=== PATIENT | male | born 1970 | race Caucasian/White ===

== ENCOUNTER 2016-09-24 16:08 | Inpatient (IN) | payer BC ==
[~2016-09-24] VITALS: Ht 180.3 cm; Wt 108.2 kg
[~2016-09-24 16:08] MED LIST: ATEN100T PO; EXJA500T PO; LEVA750T PO; LISI10TA3 PO; METF850T PO; OXYC1CAP PO; SERT-132 PO; [UNRECOGNIZED DRUG - REMARK] PO
[2016-09-25 09:00] VITALS: BP 125/73; PULSE 82; RESP 16; TEMP 98.1; O2SAT 97
[2016-09-25 09:46] LABS: HEMATOCRIT 28.8 % (39.0-51.0); MEAN CELL VOLUME 94.7 FL (80.0-100.0); MEAN CORPUSCULAR HGB CONC 35.8 % (32.0-36.0); PLATELET COUNT 29 TH/MM3 (150-450); RED BLOOD COUNT 3.04 MIL/MM3 (4.50-5.90); RED CELL DISTRIBUTION WIDTH 15.1 % (11.6-17.2); WHITE BLOOD COUNT 51.6 TH/MM3 (4.0-11.0)
[2016-09-25 09:49] LABS: HEMO FLAGS AUTO DIFF
[2016-09-25 10:08] LABS: ANION GAP 6 MEQ/L (5-15); AST (GOT) 25 U/L (15-37); BICARBONATE 30.8 MEQ/L (21.0-32.0); BLOOD UREA NITROGEN 13 MG/DL (7-18); CHLORIDE 100 MEQ/L (98-107); GLOMERULAR FILTRATION RATE 105 ML/MIN (>89); POTASSIUM 3.8 MEQ/L (3.5-5.1); SODIUM (NA) 137 MEQ/L (136-145); URIC ACID 3.8 MG/DL (2.6-7.2)
[2016-09-25 10:11] LABS: ALKALINE PHOSPHATASE 99 U/L (45-117); ALT (GPT) 21 U/L (12-78); LDH SERUM 783 U/L (87-241); TOTAL BILIRUBIN ADULT 0.3 MG/DL (0.2-1.0)
[2016-09-25] MEDS ORDERED: TEMAZEPAM 15 MG CAP PO PRN (10:15)
[2016-09-25] MEDS ORDERED: MORPHINE SULFATE 8 MG/ML INJ IV PUSH PRN (10:15)
[2016-09-25] MEDS ORDERED: ALUMINUM/MAGNESIUM/SIMETH 30 ML CUP PO PRN (10:15)
[2016-09-25] MEDS ORDERED: PROMETHAZINE HCL 25 MG TAB PO PRN (10:15)
[2016-09-25] MEDS ORDERED: ALTEPLASE RECOMBINANT 2 MG VIAL IVF PRN (10:15)
[2016-09-25] MEDS ORDERED: LORazepam 0.5 MG TAB PO PRN (10:15)
[2016-09-25] MEDS ORDERED: MORPHINE SULFATE 4 MG/ML INJ IV PRN (10:15)
[2016-09-25] MEDS ORDERED: PROCHLORPERAZINE INJ 10 MG/2 ML VIAL IV PRN (10:15)
[2016-09-25] MEDS ORDERED: PROCHLORPERAZINE MALEATE 10 MG TAB PO PRN (10:15)
[2016-09-25] MEDS ORDERED: SODIUM CHLORIDE 10 ML FLUSH PRN IVF (10:15)
[2016-09-25] MEDS ORDERED: [UNRECOGNIZED DRUG - REMARK] XX PRN (10:15)
[2016-09-25] MEDS ORDERED: MAGNESIUM HYDROXIDE SUSP 30 ML CUP PO PRN (10:15)
[2016-09-25] MEDS ORDERED: LORazepam 2 MG/ML VIAL IV PRN (10:15)
[2016-09-25] MEDS ORDERED: LOPERAMIDE HCL 2 MG CAP PO PRN (10:15)
[2016-09-25 10:16] LABS: BANDS 1 % (0-6); BLASTS 75 % (0-0); EOSINOPHILS 1 % (0-4); MYELOCYTES 2 % (0-0); NEUTROPHIL # MANUAL DIFF 4.6 TH/MM3 (1.8-7.7); POLYS (SEG NEUTROPHILS) 6 % (16-70); WBC DIFF SAMPLE 100
[2016-09-25 10:17] LABS: SMUDGE CELLS PRESENT PRESENT
[2016-09-25 10:18] LABS: PLATELET ESTIMATE SMEAR LOW (NORMAL); PLATELET MORPHOLOGY NORMAL (NORMAL); SCAN/DIFF FINAL DIFF MANUAL
[2016-09-25] MEDS: ALLOPURINOL 300 MG TAB PO SCH (10:30)
[2016-09-25] MEDS ORDERED: FILGRASTIM IV ONE ×2 (11:00)
[2016-09-25] MEDS ORDERED: WATER IV ONE ×2 (11:00)
[2016-09-25] MEDS ORDERED: DEXTROSE 5% IV ONE ×2 (11:00)
[2016-09-25 11:50] VITALS: BP 117/71; PULSE 86; RESP 20; TEMP 97.2; O2SAT 95
[2016-09-25] MEDS: SODIUM CHLOR 0.9% 1000 ML INJ 1,000 ML IV SCH ×2 (11:50→21:08)
--- NOTE | 2016-09-25 12:32 | EC ---
Study Study Date:09/25/2016 STUDY CONCLUSIONS SUMMARY - Procedure narrative: Transthoracic echocardiography. Image quality was fair. The study was technically limited due to poor acoustic window availability. - Left ventricle: The cavity size was normal. Wall thickness was normal. Systolic function was mildly reduced. The estimated ejection fraction was in the range of 45% to 50%. Diffuse hypokinesis. The study is not technically sufficient to allow evaluation of LV diastolic function. If LV function is below 40, please consider prescribing an ACEI or ARB or document rationale for non-use. PROCEDURE DATA STUDY STATUS: Elective. Procedure: Transthoracic echocardiography. Image quality was fair. The study was technically limited due to poor acoustic window availability. Scanning was performed from the parasternal, apical, and subcostal acoustic windows. Study completion: The patient tolerated the procedure well. Transthoracic echocardiography. M-mode, complete 2D, complete spectral Doppler, and color Doppler. Height: Height: 71in. Weight: Weight: 271.4lb. Body mass index: BMI: 37.9kg/m^2. Body surface area: BSA: 2.4m^2. Patient status: Inpatient. CARDIAC ANATOMY LEFT VENTRICLE: The cavity size was normal. Wall thickness was normal. Systolic function was mildly reduced. The estimated ejection fraction was in the range of 45% to 50%. Diffuse hypokinesis. The study is not technically sufficient to allow evaluation of LV diastolic function. Artifact noted in the apex in 4 chamber view, does not move with the ventricle and overall apex appears to move. AORTIC VALVE: The valve appears to be grossly normal. Doppler: There was no stenosis. No significant regurgitation. Valve area: 2.66cm^2 (Vmax). Indexed valve area: 1.11cm^2/m^2 (Vmax). MITRAL VALVE: The valve appears to be grossly normal. Doppler: There was no evidence for stenosis. Trace regurgitation. Peak gradient: 5mm Hg (D). LEFT ATRIUM: The atrium was normal in size. RIGHT VENTRICLE: The cavity size was normal. PULMONIC VALVE: Not well visualized. Doppler: There was no evidence for stenosis. No significant regurgitation. TRICUSPID VALVE: The valve appears to be grossly normal. Doppler: There was no evidence for stenosis. Trace regurgitation. PERICARDIUM: There was no pericardial effusion. Patient weight: 271.4lb _Ejection fraction:_ 65-75% _Fractional shortening:_ 32% up to 5Kg 5-11.5Kg 11.6-22.9Kg 23-45Kg 45-57Kg Aortic Root 7-13 <17 13-22 17-27 17-27 LA diam 6-13 <23 24-38 33-47 37-40 RVID 10-17 7-15 7-15 7-18 8-17 LVIDd 12-22 <32 24-38 33-47 37-40 LVPW 2-4 3-6 5-7 6-8 7-8 IVS 2-4 3-6 5-7 6-8 7-8 BASIC MEASUREMENTS ADULT NORMAL Left ventricle LV internal dimension, ED, chordal *41.6 mm 43-52 level, PLAX LV internal dimension, ES, chordal 34.7 mm 23-38 level, PLAX Fractional shortening, chordal level, *17 % >29 PLAX LV posterior wall thickness, ED 9.04 mm IVS/LVPW ratio, ED 1.04 <1.3 Ventricular septum Septal thickness, ED 9.38 mm Aortic valve Leaflet separation 15 mm 15-26 Right ventricle RV internal dimension, ED, PLAX 29.6 mm 19-38 BASIC MEASUREMENTS ADULT NORMAL Aortic valve Leaflet separation 15 mm 15-26 Aorta Root diameter, ED 27 mm 20-37 Left atrium Anterior-posterior dimension, ES 34 mm 19-40 Anterior-posterior dimension index, ES 1.42 cm/m^2 <2.2 LA/aortic root ratio 1.26 DOPPLER MEASUREMENTS ADULT NORMAL Aortic valve Peak velocity, S 137 cm/s Valve area, Vmax 2.66 cm^2 Valve area index, Vmax 1.11 cm^2/m^2 Mitral valve Peak E-wave velocity 117 cm/s Peak A-wave velocity 81.4 cm/s Deceleration time *141 ms 150-230 Peak gradient, D 5 mm Hg Peak E/A ratio 1.4 Maximal regurgitant velocity 316 cm/s Pulmonic valve Peak velocity, S 141 cm/s LEGEND: Mean values are shown as u=mean value. Asterisk (*) frank values outside specified normal range. Prepared and signed by Saurabh Malin [id number]
[2016-09-25] MEDS ORDERED: AMLO10TA2 PO (14:52)
[2016-09-25] MEDS ORDERED: OXYC1TAB63 PO (14:52)
[2016-09-25] MEDS ORDERED: OXYC1CAP PO (14:52)
[2016-09-25] MEDS ORDERED: DIAZ10TA PO (14:52)
[2016-09-25] MEDS ORDERED: multvitamin PO (14:52)
[2016-09-25 15:15] LABS: HEMATOCRIT 28.4 % (39.0-51.0); MEAN CELL VOLUME 94.7 FL (80.0-100.0); MEAN CORPUSCULAR HEMOGLOBIN 33.6 PG (27.0-34.0); MEAN CORPUSCULAR HGB CONC 35.5 % (32.0-36.0); PLATELET COUNT 27 TH/MM3 (150-450); RED CELL DISTRIBUTION WIDTH 14.8 % (11.6-17.2); WHITE BLOOD COUNT 41.7 TH/MM3 (4.0-11.0)
[2016-09-25 15:18] LABS: HEMO FLAGS AUTO DIFF
[2016-09-25 15:31] LABS: PROTHROMBIN TIME - PATIENT 11.1 SEC (9.8-11.6)
[2016-09-25 15:34] LABS: APTT (PATIENT) 25.4 SEC (24.3-30.1)
[2016-09-25 15:50] VITALS: BP 135/79; PULSE 105; RESP 20; TEMP 98.7; O2SAT 95
[2016-09-25 16:56] LABS: BLASTS 81 % (0-0); EOSINOPHILS 4 % (0-4); MYELOCYTES 1 % (0-0); NEUTROPHIL # MANUAL DIFF 2.9 TH/MM3 (1.8-7.7); POLYS (SEG NEUTROPHILS) 6 % (16-70); WBC DIFF SAMPLE 100
[2016-09-25 16:57] LABS: PLATELET ESTIMATE SMEAR LOW (NORMAL); PLATELET MORPHOLOGY NORMAL (NORMAL); SCAN/DIFF FINAL DIFF MANUAL
[2016-09-25 17:02] LABS: SMUDGE CELLS PRESENT PRESENT
[2016-09-25] MEDS: DOCUSATE SODIUM 100 MG CAP PO SCH (17:18)
[2016-09-25 20:00] VITALS: BP 124/77; PULSE 104; RESP 20; TEMP 99; O2SAT 93
[2016-09-25] MEDS: SODIUM CHLORIDE 10 ML FLUSH BID IVF SCH (21:00)
[2016-09-25] MEDS: DIAZEPAM 10 MG TAB PO SCH (21:05)
[2016-09-25] MEDS: ATENOLOL 100 MG TAB PO SCH (21:06)
[2016-09-26] VITALS (8 sets, daily range): BP systolic 94–137; BP diastolic 51–79; PULSE 62–115; RESP 12–20; TEMP 96.4–101.3; O2SAT 93–99
[2016-09-26] MEDS: SODIUM CHLOR 0.9% 1000 ML INJ 1,000 ML IV SCH (04:16)
--- NOTE | 2016-09-26 05:32 | MH ---
cc: JOSEF SANCHEZ M.D. DATE OF ADMISSION: 09/25/2016 REASON FOR ADMISSION Relapse acute myeloid leukemia, admitted for salvage chemotherapy. HISTORY OF PRESENT ILLNESS Edgar is a pleasant 46-year-old male. 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 The NPM1 was positive. On November 05, 2015, he underwent induction chemotherapy with idarubicin and Ana Paula-C 7+3. Day 21 bone marrow showed residual leukemia with 7-8% blasts and the NPM1 was still positive. On December 06 he underwent reinduction chemotherapy with FLANG. Day 21 bone marrow showed that he went into remission; there was no residual leukemia noted. The NPM1 became negative. Subsequently the patient had four cycles of high-dose Ana Paula-C consolidation chemotherapy which he completed in May 2016. The patient was closely followed up as an outpatient. The patient recently was noted to have a mild thrombocytopenia and mild neutropenia. 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 The patient was getting CBC every 2 weeks and I was seeing him in the office once a month. Last week the patient had a CBC which showed the white count had gone up to 11,000 and the platelet count had dropped to less than 100,000 and there were 36% blasts. I saw the patient in the office yesterday did a bone marrow biopsy. I repeated the CBC yesterday before the bone marrow biopsy which showed a white count of 63.7, hemoglobin 12.2, hematocrit 34.3, platelet count was 33. The differential count showed 73% blasts. I have recommended salvage chemotherapy. The patient is now admitted today for that. The patient denies any new complaint since yesterday. He denies any bleeding episodes. The patient has anxiety which is to be expected. The rest of the review of systems is negative. PAST MEDICAL HISTORY 1. ADHD. 2. Hemochromatosis. 3. Hypercholesterolemia. 4. Acute myeloid leukemia diagnosed in October last year. 5. Anxiety disorder. PAST SURGICAL HISTORY 1. Wtutaz-C-Pavd placement. 2. Tonsillectomy. 3. Undescended testis. 4. Colonoscopy. 5. Cardiac catheterization. 6. Anal sphincterotomy. ALLERGIES None. MEDICATIONS 1. Adderall. 2. Amlodipine. 3. Atenolol. 4. Diazepam. 5. Lisinopril. 6. Metformin. 7. Oxycodone. FAMILY HISTORY Mother from metastatic lung cancer. Father from [place]. He had one brother who and another brother who is alive and well. The patient has six sisters. Five , none from cancer. The patient has two daughters, both alive and well. SOCIAL HISTORY The patient is , lives with . He does not smoke cigarettes and he does not drink alcohol. PHYSICAL EXAMINATION GENERAL: He is a well-developed, well-nourished white male in no apparent distress. VITAL SIGNS: Temperature 97.2, heart rate is 86, blood pressure 117/71, O2 saturation 95%. HEENT: PERRLA, EOMI. Anicteric. No oral lesions noted. NECK: Supple. LYMPHATICS: There is no cervical, supraclavicular or axillary lymphadenopathy noted. LUNGS: Clear. No wheezing, rhonchi or rales. HEART: Regular rate and rhythm. ABDOMEN: Soft, nontender. No hepatosplenomegaly. EXTREMITIES: No pedal edema. NEUROLOGY: Awake, alert, oriented x 3. SKIN: No significant lesions noted. ASSESSMENT Relapse acute myeloid leukemia, last reinduction chemo in 12/2015 PLAN I have discussed with the patient and his yesterday in our clinic regarding the relapsed leukemia. The patient was treated with idarubicin and Ana Paula-C induction chemotherapy last year and he did not achieve complete remission. Subsequently he had he was reinduced with FLANG chemotherapy and he went into remission. The patient was referred to [facility] for allogeneic bone marrow transplant. The patient was evaluated and was found have a suitable donor. However, the patient elected to defer the transplant. He wanted did not want to do the transplant in first remission. The patient unfortunately now has relapse. The patient had relapsed within a year of his reinduction chemotherapy. His last reduction was in December of 2015 so it has been nine months that he has relapsed. I will use the salvage chemotherapy with CLAG-M which stands for Cladribine, Ana Paula-C, G-CSF and mitoxantrone. The risks, benefits and alternatives of the chemotherapy were explained to the patient. The patient has agreed and wants to proceed with that. I will give him G-CSF today and start chemotherapy tomorrow. He will get cladribine IV for 2 hours followed by Ana Paula-C over 4 hours which will be followed by mitoxantrone for three days. The cladribine and Ana Paula-C will be given for five days. Prior to the chemotherapy, the patient will also receive Neupogen. We will start the Neupogen 24 hours prior to the first chemotherapy today. The patient was started on allopurinol yesterday in preparation for possible tumor lysis syndrome. We will continue his medications. I have discussed with the patient regarding the risks, benefits and alternatives of the chemotherapy. We discussed the side effects of the chemotherapy. We discussed that with the salvage chemotherapy has increased morbidity and mortality. He understands and he wants to proceed with that. I have also discussed the case with his transplant physician, Dr. Sepulveda at [facility] in [place]. Once the patient achieves remission, then he will be referred to [facility] for allogeneic bone marrow transplant. This time the patient has agreed to undergo transplant, which is very appropriate. Further recommendations based on his hospital stay. MD ALEX Hastings/YOVANNY /11:34 PM /5:06 AM ELZBIETA
[2016-09-26 05:46] LABS: HEMATOCRIT 27.6 % (39.0-51.0); MEAN CELL VOLUME 96.2 FL (80.0-100.0); MEAN CORPUSCULAR HEMOGLOBIN 32.2 PG (27.0-34.0); MEAN CORPUSCULAR HGB CONC 33.4 % (32.0-36.0); PLATELET COUNT 22 TH/MM3 (150-450); RED BLOOD COUNT 2.87 MIL/MM3 (4.50-5.90); RED CELL DISTRIBUTION WIDTH 15.1 % (11.6-17.2); WHITE BLOOD COUNT 60.7 TH/MM3 (4.0-11.0)
[2016-09-26 05:57] LABS: APTT (PATIENT) 25.8 SEC (24.3-30.1); PROTHROMBIN TIME - PATIENT 11.4 SEC (9.8-11.6)
[2016-09-26 05:58] LABS: HEMO FLAGS AUTO DIFF
[2016-09-26 06:08] LABS: ALT (GPT) 19 U/L (12-78); ANION GAP 6 MEQ/L (5-15); AST (GOT) 22 U/L (15-37); BICARBONATE 28.7 MEQ/L (21.0-32.0); BLOOD UREA NITROGEN 9 MG/DL (7-18); CHLORIDE 102 MEQ/L (98-107); GLOMERULAR FILTRATION RATE 120 ML/MIN (>89); MAGNESIUM 1.8 MG/DL (1.5-2.5); POTASSIUM 3.4 MEQ/L (3.5-5.1); SODIUM (NA) 137 MEQ/L (136-145); URIC ACID 3.6 MG/DL (2.6-7.2)
[2016-09-26 06:10] LABS: ALKALINE PHOSPHATASE 76 U/L (45-117); LDH SERUM 827 U/L (87-241); TOTAL BILIRUBIN ADULT 0.3 MG/DL (0.2-1.0)
[2016-09-26 08:03] LABS: BLASTS 87 % (0-0); NEUTROPHIL # MANUAL DIFF 2.4 TH/MM3 (1.8-7.7); POLYS (SEG NEUTROPHILS) 4 % (16-70); WBC DIFF SAMPLE 100
[2016-09-26 08:05] LABS: PLATELET ESTIMATE SMEAR LOW (NORMAL); PLATELET MORPHOLOGY NORMAL (NORMAL); SCAN/DIFF FINAL DIFF MANUAL
[2016-09-26] MEDS ORDERED: LISINOPRIL 20 MG TAB PO SCH (09:00)
[2016-09-26] MEDS ORDERED: DEXTROAMPHETAMINE/AMPHETAMINE XR 10 MG CAP PO SCH (09:00)
[2016-09-26] MEDS ORDERED: SODIUM CHLOR 0.9% 250 ML INJ 250 ML IV SCH ×2 (09:00→12:00)
[2016-09-26] MEDS ORDERED: SODIUM CHLORIDE 0.9% IV SCH ×2 (09:00→18:00)
[2016-09-26] MEDS ORDERED: DEXTROAMPHETAMINE/AMPHETAMINE XR 15 MG CAP PO SCH (09:00)
[2016-09-26] MEDS: SODIUM CHLORIDE 10 ML FLUSH BID IVF SCH ×2 (09:00→21:00)
[2016-09-26] MEDS ORDERED: FILGRASTIM IV SCH (09:00)
[2016-09-26] MEDS ORDERED: ATENOLOL 100 MG TAB PO SCH (09:00)
[2016-09-26] MEDS: DOCUSATE SODIUM 100 MG CAP PO SCH ×3 (09:49→20:08)
[2016-09-26] MEDS: SERTRALINE HCL 50 MG TAB PO SCH (09:49)
[2016-09-26] MEDS: ALLOPURINOL 300 MG TAB PO SCH (09:50)
[2016-09-26] MEDS: metFORMIN HCL 850 MG TAB PO SCH (09:50)
[2016-09-26] MEDS ORDERED: GRANISETRON INJ 1 MG, DEXAMETHASONE INJ 20 MG in SODIUM CHLORIDE 0.9% INJ 50 ML IV SCH (10:00)
[2016-09-26] MEDS: GRANISETRON INJ 1 MG, DEXAMETHASONE INJ 20 MG in SODIUM CHLORIDE 0.9% INJ 50 ML IV SCH (13:04)
[2016-09-26] MEDS: SODIUM CHLOR 0.9% 250 ML INJ 250 ML IV SCH ×2 (13:11→20:09)
[2016-09-26] MEDS: FILGRASTIM IV SCH (13:37)
[2016-09-26] MEDS: SODIUM CHLORIDE 0.9% IV SCH (13:37)
[2016-09-26] MEDS ORDERED: WATE IV SCH ×2 (14:00)
[2016-09-26] MEDS ORDERED: DEXTROSE 5% IV SCH ×2 (14:00)
[2016-09-26] MEDS ORDERED: CYTARABINE IV SCH ×2 (14:00)
[2016-09-26] MEDS: CLADRIBINE IV SCH (14:03)
[2016-09-26] MEDS: SODIUM CHLORID 0.9% IV SCH (14:03)
[2016-09-26] MEDS: CEFEPIME INJ 2,000 MG in SODIUM CHLORIDE 0.9% INJ 100 ML IV SCH ×2 (14:10→22:06)
--- NOTE | 2016-09-26 14:33 | RADRPT ---
EXAM DATE/TIME: 09/26/2016 13:59 [facility] COMPARISON: CHEST PA & LAT, May 14, 2016, 14:25. INDICATIONS : Patient has been short of breath and had a productive cough. MEDICAL HISTORY : Hypertension. Diabetes mellitus type II. Leukemia. SURGICAL HISTORY : None. ENCOUNTER: Initial ACUITY: 2 days PAIN SCORE: 0/10 LOCATION: Bilateral chest FINDINGS: A single view of the chest demonstrates the lungs to be symmetrically aerated without evidence of mas s, infiltrate or effusion. The cardiomediastinal contours are unremarkable. A right chest port is s table in good position Osseous structures are intact. CONCLUSION: No acute disease. Eric Santiago MD on September 26, 2016 at 14:31 Board Certified Radiologist. This report was verified electronically.
[2016-09-26] MEDS ORDERED: BISACODYL EC 5 MG TABEC PO PRN (14:45)
--- NOTE | 2016-09-26 15:45 | PD.ONC.PN ---
Subjective Subjective Remarks Afebrile overnight, however he spiked a temp this afternoon of 101.3. Pt asymptomatic with no complaints. He states he feels fine. He has some generalized fatigue that is unchanged over the past few months. Objective Data Date Time Temp Pulse Resp B/P Pulse Ox O2 Delivery O2 Flow Rate FiO2 09/26/16 14:03 18 09/26/16 13:16 101.3 115 18 137/74 09/26/16 08:00 97.4 62 12 94/51 97 09/26/16 04:39 99.8 98 19 96/54 93 09/26/16 04:00 99.5 98 18 96/54 93 09/26/16 00:00 98.7 84 20 113/65 97 09/25/16 20:00 99.0 104 20 124/77 93 09/25/16 15:50 98.7 105 20 135/79 95 Result Diagram: 09/26/16 0400 09/26/16 0400 Laboratory Results Laboratory Tests Test 09/26/16 04:00 White Blood Count 60.7 TH/MM3 Red Blood Count 2.87 MIL/MM3 Hemoglobin 9.2 GM/DL Hematocrit 27.6 % Mean Corpuscular Volume 96.2 FL Mean Corpuscular Hemoglobin 32.2 PG Mean Corpuscular Hemoglobin 33.4 % Concent Red Cell Distribution Width 15.1 % Platelet Count 22 TH/MM3 Mean Platelet Volume 8.3 FL Neutrophils (%) (Auto) % Lymphocytes (%) (Auto) % Monocytes (%) (Auto) % Eosinophils (%) (Auto) % Basophils (%) (Auto) % Neutrophils # (Auto) TH/MM3 Lymphocytes # (Auto) TH/MM3 Monocytes # (Auto) TH/MM3 Eosinophils # (Auto) TH/MM3 Basophils # (Auto) TH/MM3 CBC Comment AUTO DIFF Differential Total Cells 100 Counted Neutrophils % (Manual) 4 % Lymphocytes % 6 % Monocytes % 3 % Neutrophils # (Manual) 2.4 TH/MM3 Differential Comment FINAL DIFF MANUAL Blastocytes 87 % Platelet Estimate LOW Platelet Morphology Comment NORMAL Prothrombin Time 11.4 SEC Prothromb Time International 1.0 RATIO Ratio Activated Partial 25.8 SEC Thromboplast Time Fibrinogen 249 mg/dL Sodium Level 137 MEQ/L Potassium Level 3.4 MEQ/L Chloride Level 102 MEQ/L Carbon Dioxide Level 28.7 MEQ/L Anion Gap 6 MEQ/L Blood Urea Nitrogen 9 MG/DL Creatinine 0.70 MG/DL Estimat Glomerular Filtration 120 ML/MIN Rate Random Glucose 143 MG/DL Uric Acid 3.6 MG/DL Calcium Level 8.2 MG/DL Phosphorus Level 3.4 MG/DL Magnesium Level 1.8 MG/DL Total Bilirubin 0.3 MG/DL Aspartate Amino Transf 22 U/L (AST/SGOT) Alanine Aminotransferase 19 U/L (ALT/SGPT) Alkaline Phosphatase 76 U/L Lactate Dehydrogenase 827 U/L Total Protein 5.6 GM/DL Albumin 3.2 GM/DL Culture Results Microbiology Date/Time Procedure Status Source Growth 09/26/16 13:57 Aerobic Blood Culture Received Blood Line Pending 09/26/16 13:57 Anaerobic Blood Culture Received Blood Line Pending 09/26/16 14:02 Aerobic Blood Culture Received Blood Peripheral Pending 09/26/16 14:02 Anaerobic Blood Culture Received Blood Peripheral Pending Imaging Studies Last 24 hours Impressions Chest X-Ray 09/26/16 0000 Signed Impressions: Service Date/Time: Monday, September 26, 2016 13:59 - CONCLUSION: No acute disease . Eric Santiago MD Administered Medications Medications (Trade) Dose Ordered Sig/Génesis Route PRN Reason Start Time Stop Time Status Last Admin Dose Admin Oxycodone HCl 10 mg 10 mg Q3H PRN PO PAIN SCALE 8 TO 10 09/25/16 08:45 09/26/16 13:03 Sodium Chloride (NS 1000 ml Inj) 1,000 ml @ 100 mls/hr Q10H IV 09/25/16 10:15 09/26/16 04:16 Allopurinol (Zyloprim) 300 mg DAILY PO 09/25/16 10:30 09/26/16 09:50 Amlodipine Besylate (Norvasc) 10 mg DAILY PO 09/26/16 09:00 09/26/16 09:49 Diazepam (Valium) 10 mg HS PO 09/25/16 21:00 09/25/16 21:05 Metformin HCl (Glucophage) 850 mg DAILY PO 09/26/16 09:00 09/26/16 09:50 Sertraline HCl (Zoloft) 50 mg DAILY PO 09/26/16 09:00 09/26/16 09:49 Oxycodone HCl (Roxicodone) 5 mg QID PO 09/25/16 13:00 09/25/16 17:18 Lisinopril (Prinivil) 20 mg DAILY PO 09/26/16 09:00 09/26/16 09:49 Atenolol (Tenormin) 100 mg DAILY@2100 PO 09/25/16 21:00 09/25/16 21:06 Docusate Sodium 100 mg 100 mg TID PO 09/25/16 18:00 09/26/16 13:10 Granisetron HCl 1 mg/Dexamethasone Sodium Phosphate 20 mg/Sodium Chloride 56 ml @ 112 mls/hr Q24H IV 09/26/16 12:00 09/30/16 12:29 09/26/16 13:04 Sodium Chloride 250 ml @ 100 mls/hr Q24H IV 09/26/16 13:00 09/26/16 13:11 Cladribine 12 mg/ Sodium Chloride 512 ml @ 256 mls/hr Q24H IV 09/26/16 13:00 09/30/16 14:59 09/26/16 14:03 Filgrastim 480 mcg/Sodium Chloride 51.6 ml @ 206.4 mls/ hr Q24H IV 09/26/16 12:30 09/30/16 12:44 09/26/16 13:37 Cefepime HCl/ Sodium Chloride (Maxipime Inj/NS Inj) 100 ml @ 200 mls/hr Q8H IV 09/26/16 14:00 09/26/16 14:10 Objective Remarks GENERAL: Overweight male, sitting up on side of bed in no distress. SKIN: Warm and dry. Port to R chest. Asymptomatic. HEAD: Normocephalic. EYES: No scleral icterus. No injection or drainage. NECK: Supple, trachea midline. No JVD or lymphadenopathy. CARDIOVASCULAR: +S1/S2. No murmur. RESPIRATORY: Lungs clear throughout. GASTROINTESTINAL: Abdomen soft, non-tender, nondistended. EXTREMITIES: No edema. NEUROLOGICAL: No obvious focal deficit. Awake, alert, and oriented x3. Assessment/Plan Problem List: (1) AML (acute myeloid leukemia) Status: Acute Plan: 09/26: Start on CLAG-M chemotherapy for relapsed AML. Received Neupogen yesterday. He spiked a fever this afternoon of 101.3. BC, UA, and CXR ordered. Will start pt on Cefepime. Await BC results. -- He has been getting CBC q2 weeks. On 09/18 it was noted that he had a white count at 11k and a platelet count of 76k. Blasts were at 38%. He was brought in to the clinic on 09/24 for a bone marrow biopsy. A CBC was done and showed a white count of 63.7, Hgb 12.2, and platelet count was 33K. The blasts were at 73 %. Decision was made at that time to admit for salvage chemo. History: 11/04/16: AML Diagnosis made. 46XY, +NPM1 mutation detected, FLT3 negative-- indicates favorable prognosis. 11/05-11/28: Initial induction with MELL-C and idarubicin (7+3). STAT Leukapheresis due to leukostasis. On D25, repeat bone marrow showed residual leukemia. 12/06-12/27: Re-induction with FLANG chemotherapy. Repeat bone marrow biopsy negative for residual AML. Patient in Complete Remission 01/06-01/10: C1 consolidation chemotherapy with Mell-C. 02/17-02/21: C2 consolidation chemotherapy with MELL-C. 03/25-03/30: C3 consolidation chemotherapy with MELL-C 04/28-05/02: C4 consolidation chemo with MELL-C (2) DVT prophylaxis Status: Acute Plan: -- Thrombocytopenia; will hold off on chemical prophylaxis at this time. (3) Hypertension Status: Acute Plan: -- Continue amlodipine, lisinopril -- BP controlled (4) Diabetes Status: Acute Plan: -- On Glucophage 850mg po daily (5) Fever Status: Acute Plan: -- BC pending -- Started on IV Cefepime -- CXR negative Assessment 46 y/o male admitted for salvage chemotherapy for relapsed AML. Attending Statement c/o pain and weakness. low grade fever last night. D/W pt regarding salvage chemo CLAG-M. He agrees. start today. R/B/A of chemo explained. He understand increase M/M with salvage chemo. d/w pharmacy, RN and staff regarding delay of chemo. The exam, history, and the medical decision-making described in the above note were completed with the assistance of the mid-level provider. I reviewed and agree with the findings presented. I attest that I had a [id number] encounter with the patient on the same day, and personally performed and documented my assessment and findings in the medical record. Valarie Lopez Sep 26, 2016 15:45 Alexandra Olea MD Sep 26, 2016 15:54
[2016-09-26] MEDS ORDERED: [UNRECOGNIZED DRUG - OTHER] IV SCH (18:00)
[2016-09-26] MEDS: ATENOLOL 100 MG TAB PO SCH (22:05)
[2016-09-26] MEDS: DIAZEPAM 10 MG TAB PO SCH (22:15)
[2016-09-26] MEDS ORDERED: MULT-135 PO (22:42)
[2016-09-27] VITALS (9 sets, daily range): BP systolic 80–158; BP diastolic 52–95; PULSE 88–115; RESP 16–19; TEMP 96.1–101; O2SAT 93–99
[2016-09-27 00:34] LABS: BLOOD, URINE NEG (NEG); GLUCOSE,URINE 1000 mg/dL (NEG); KETONE, URINE NEG (NEG); NITRITE,URINE NEG (NEG); URINE COLOR LIGHT-YELLOW (YELLW/STRAW)
[2016-09-27 00:42] LABS: COMMENT (UR) CULT NOT INDICATED; CULTURE IF INDICATED CULT NOT INDICATED
[2016-09-27] MEDS: SODIUM CHLORIDE 0.9% IV SCH ×2 (01:16→14:08)
[2016-09-27] MEDS: [UNRECOGNIZED DRUG - OTHER] IV SCH (01:16)
[2016-09-27] MEDS: SODIUM CHLOR 0.9% 1000 ML INJ 1,000 ML IV SCH ×2 (01:26→12:15)
[2016-09-27] MEDS: ACETAMINOPHEN 325 MG TAB PO PRN ×2 (01:49→05:56)
[2016-09-27] MEDS: DIAZEPAM 10 MG TAB PO SCH (02:10)
[2016-09-27] MEDS: ONDANSETRON INJ 8 MG in DEXTROSE 5% IN WATER INJ 50 ML IV PUSH PRN ×2 (02:13)
[2016-09-27] MEDS: SODIUM CHLOR 0.9% 250 ML INJ 250 ML IV SCH ×2 (02:50→20:52)
[2016-09-27] MEDS: CEFEPIME INJ 2,000 MG in SODIUM CHLORIDE 0.9% INJ 100 ML IV SCH ×2 (05:54→13:30)
[2016-09-27 07:25] LABS: HEMATOCRIT 28.3 % (39.0-51.0); MEAN CELL VOLUME 95.7 FL (80.0-100.0); MEAN CORPUSCULAR HEMOGLOBIN 32.6 PG (27.0-34.0); MEAN CORPUSCULAR HGB CONC 34.1 % (32.0-36.0); PLATELET COUNT 23 TH/MM3 (150-450); RED BLOOD COUNT 2.95 MIL/MM3 (4.50-5.90); RED CELL DISTRIBUTION WIDTH 15.2 % (11.6-17.2); WHITE BLOOD COUNT 82.9 TH/MM3 (4.0-11.0)
[2016-09-27 07:36] LABS: ALT (GPT) 20 U/L (12-78); ANION GAP 9 MEQ/L (5-15); AST (GOT) 32 U/L (15-37); BICARBONATE 25.3 MEQ/L (21.0-32.0); BLOOD UREA NITROGEN 19 MG/DL (7-18); CHLORIDE 102 MEQ/L (98-107); GLOMERULAR FILTRATION RATE 103 ML/MIN (>89); MAGNESIUM 1.9 MG/DL (1.5-2.5); POTASSIUM 3.9 MEQ/L (3.5-5.1); SODIUM (NA) 136 MEQ/L (136-145)
[2016-09-27 07:45] LABS: ALKALINE PHOSPHATASE 73 U/L (45-117); LDH SERUM 1180 U/L (87-241); TOTAL BILIRUBIN ADULT 0.3 MG/DL (0.2-1.0)
[2016-09-27 08:04] LABS: HEMO FLAGS AUTO DIFF
[2016-09-27 08:33] LABS: BANDS 4 % (0-6); BLASTS 87 % (0-0); EOSINOPHILS 1 % (0-4); NEUTROPHIL # MANUAL DIFF 9.9 TH/MM3 (1.8-7.7); POLYS (SEG NEUTROPHILS) 8 % (16-70); WBC DIFF SAMPLE 100
[2016-09-27 08:34] LABS: DOHLE BODIES PRESENT (NONE SEEN); PLATELET ESTIMATE SMEAR LOW (NORMAL); PLATELET MORPHOLOGY NORMAL (NORMAL); SCAN/DIFF FINAL DIFF MANUAL
[2016-09-27] MEDS: SODIUM CHLORIDE 10 ML FLUSH BID IVF SCH ×2 (09:00→20:47)
[2016-09-27] MEDS: DOCUSATE SODIUM 100 MG CAP PO SCH ×3 (10:42→17:55)
[2016-09-27] MEDS: metFORMIN HCL 850 MG TAB PO SCH (10:42)
[2016-09-27] MEDS: ALLOPURINOL 300 MG TAB PO SCH (10:42)
[2016-09-27] MEDS: SERTRALINE HCL 50 MG TAB PO SCH (10:43)
[2016-09-27] MEDS: DEXTROAMPHETAMINE/AMPHETAMINE XR 15 MG CAP PO SCH (12:08)
--- NOTE | 2016-09-27 12:59 | PD.ONC.PN ---
Subjective Subjective Remarks Tmax 101.0 overnight. Pt sitting up in chair at bedside eating breakfast. He states he feels OK. Some mild headache this morning. Other than that he has no complaints. Objective Data Date Time Temp Pulse Resp B/P Pulse Ox O2 Delivery O2 Flow Rate FiO2 09/27/16 12:02 96.1 88 18 84/52 94 09/27/16 08:00 97.0 99 16 96/55 96 09/27/16 05:40 101.0 115 18 102/60 93 09/27/16 02:10 99.8 109 19 158/95 95 09/27/16 01:06 99.6 99 16 117/81 99 09/27/16 00:00 97.7 100 19 105/57 95 09/26/16 20:39 96.4 100 19 110/72 98 09/26/16 17:50 97.8 101 16 103/56 95 09/26/16 16:00 97.7 111 16 137/79 99 09/26/16 14:03 18 09/26/16 13:16 101.3 115 18 137/74 Result Diagram: 09/27/16 0607 09/27/16 0607 Laboratory Results Laboratory Tests Test 09/26/16 09/27/16 22:10 06:07 Urine Color LIGHT-YELLOW Urine Turbidity CLEAR Urine pH 5.0 Urine Specific Newell 1.019 Urine Protein NEG mg/dL Urine Glucose (UA) 1000 mg/dL Urine Ketones NEG mg/dL Urine Occult Blood NEG Urine Nitrite NEG Urine Bilirubin NEG Urine Urobilinogen LESS THAN 2.0 MG/DL Urine Leukocyte Esterase NEG Urine WBC 1 /hpf Microscopic Urinalysis Comment CULT NOT INDICATED White Blood Count 82.9 TH/MM3 Red Blood Count 2.95 MIL/MM3 Hemoglobin 9.6 GM/DL Hematocrit 28.3 % Mean Corpuscular Volume 95.7 FL Mean Corpuscular Hemoglobin 32.6 PG Mean Corpuscular Hemoglobin 34.1 % Concent Red Cell Distribution Width 15.2 % Platelet Count 23 TH/MM3 Mean Platelet Volume 5.8 FL Neutrophils (%) (Auto) % Lymphocytes (%) (Auto) % Monocytes (%) (Auto) % Eosinophils (%) (Auto) % Basophils (%) (Auto) % Neutrophils # (Auto) TH/MM3 Lymphocytes # (Auto) TH/MM3 Monocytes # (Auto) TH/MM3 Eosinophils # (Auto) TH/MM3 Basophils # (Auto) TH/MM3 CBC Comment AUTO DIFF Differential Total Cells 100 Counted Neutrophils % (Manual) 8 % Band Neutrophils % 4 % Eosinophils % 1 % Neutrophils # (Manual) 9.9 TH/MM3 Differential Comment FINAL DIFF MANUAL Blastocytes 87 % Dohle Bodies PRESENT Platelet Estimate LOW Platelet Morphology Comment NORMAL Red Cell Morphology Comment NORMAL Sodium Level 136 MEQ/L Potassium Level 3.9 MEQ/L Chloride Level 102 MEQ/L Carbon Dioxide Level 25.3 MEQ/L Anion Gap 9 MEQ/L Blood Urea Nitrogen 19 MG/DL Creatinine 0.80 MG/DL Estimat Glomerular Filtration 103 ML/MIN Rate Random Glucose 240 MG/DL Uric Acid 6.0 MG/DL Calcium Level 8.6 MG/DL Phosphorus Level 4.0 MG/DL Magnesium Level 1.9 MG/DL Total Bilirubin 0.3 MG/DL Aspartate Amino Transf 32 U/L (AST/SGOT) Alanine Aminotransferase 20 U/L (ALT/SGPT) Alkaline Phosphatase 73 U/L Lactate Dehydrogenase 1180 U/L Total Protein 6.1 GM/DL Albumin 3.0 GM/DL Culture Results Microbiology Date/Time Procedure Status Source Growth 09/26/16 13:57 Aerobic Blood Culture - Preliminary Resulted Blood Line NO GROWTH IN 1 DAY 09/26/16 13:57 Anaerobic Blood Culture - Preliminary Resulted Blood Line NO GROWTH IN 1 DAY 09/26/16 14:02 Aerobic Blood Culture - Preliminary Resulted Blood Peripheral NO GROWTH IN 1 DAY 09/26/16 14:02 Anaerobic Blood Culture - Preliminary Resulted Blood Peripheral NO GROWTH IN 1 DAY Administered Medications Medications (Trade) Dose Ordered Sig/Génesis Route PRN Reason Start Time Stop Time Status Last Admin Dose Admin Acetaminophen (Tylenol) 650 mg Q4H PRN PO PAIN SCALE 0-3 OR TEMP> 100.5F 09/25/16 08:45 09/27/16 05:56 Oxycodone HCl 10 mg 10 mg Q3H PRN PO PAIN SCALE 8 TO 10 09/25/16 08:45 09/26/16 13:03 Sodium Chloride (NS 1000 ml Inj) 1,000 ml @ 100 mls/hr Q10H IV 09/25/16 10:15 09/27/16 01:26 Allopurinol (Zyloprim) 300 mg DAILY PO 09/25/16 10:30 09/27/16 10:42 Amlodipine Besylate (Norvasc) 10 mg DAILY PO 09/26/16 09:00 09/26/16 09:49 Diazepam (Valium) 10 mg HS PO 09/25/16 21:00 09/26/16 22:15 Metformin HCl (Glucophage) 850 mg DAILY PO 09/26/16 09:00 09/27/16 10:42 Sertraline HCl (Zoloft) 50 mg DAILY PO 09/26/16 09:00 09/27/16 10:43 Oxycodone HCl (Roxicodone) 5 mg QID PO 09/25/16 13:00 09/26/16 20:07 Sodium Chloride 2 ml 2 ml BID IVF 09/25/16 21:00 09/26/16 21:00 Ondansetron HCl/ Dextrose (Zofran Inj/D5W Inj) 54 ml @ 216 mls/hr Q8H PRN IV PUSH NAUSEA OR VOMITING 09/25/16 10:30 09/27/16 02:13 Atenolol (Tenormin) 100 mg DAILY@2100 PO 09/25/16 21:00 09/26/16 22:05 Docusate Sodium 100 mg 100 mg TID PO 09/25/16 18:00 09/27/16 10:42 Granisetron HCl 1 mg/Dexamethasone Sodium Phosphate 20 mg/Sodium Chloride 56 ml @ 112 mls/hr Q24H IV 09/26/16 12:00 09/30/16 12:29 09/26/16 13:04 Sodium Chloride 250 ml @ 100 mls/hr Q24H IV 09/26/16 13:00 09/26/16 13:11 Sodium Chloride 250 ml @ 100 mls/hr Q24H IV 09/26/16 20:00 09/26/16 20:09 Cladribine 12 mg/ Sodium Chloride 512 ml @ 256 mls/hr Q24H IV 09/26/16 13:00 09/30/16 14:59 09/26/16 14:03 Cytarabine 4800 mg/Dextrose 500 ml @ 125 mls/hr Q24H IV 09/26/16 14:00 09/30/16 17:59 09/26/16 20:06 Filgrastim 480 mcg/Sodium Chloride 51.6 ml @ 206.4 mls/ hr Q24H IV 09/26/16 12:30 09/30/16 12:44 09/26/16 13:37 Cefepime HCl/ Sodium Chloride (Maxipime Inj/NS Inj) 100 ml @ 200 mls/hr Q8H IV 09/26/16 14:00 09/27/16 05:54 Amphetamine/ Dextroamphetamine 15 mg 15 mg DAILY PO 09/27/16 09:00 09/27/16 12:08 Mitoxantrone HCl/ Sodium Chloride (Novantrone Inj/ NS Inj) 62 ml @ 372 mls/hr DAILY@01 IV 09/27/16 01:00 09/29/16 01:09 09/27/16 01:16 Objective Remarks GENERAL: Middle-aged male sitting up in chair eating breakfast in no distress. SKIN: Warm and dry. Port to L chest. Asymptomatic. HEAD: Normocephalic. EYES: No injection or drainage. NECK: Supple, trachea midline. CARDIOVASCULAR: +S1/S2. No murmur appreciated. RESPIRATORY: Lungs clear, diminished to the bases. GASTROINTESTINAL: Abdomen soft, non-tender, nondistended. EXTREMITIES: No cyanosis, or edema. NEUROLOGICAL: No obvious focal deficit. Awake, alert, and oriented x3. Assessment/Plan Assessment 46 y/o male admitted for salvage chemotherapy for relapsed AML. Plan The pt was started on CLAG-M chemotherapy yesterday. He has been receiving Neupogen prior to chemo daily, causing elevations of leukocytosis. He spiked a fever yesterday afternoon. BC show no growth x 1 day. U/A neg. Started on Cefepime IV 2g Q8H. Will monitor. Today he looks to have some yeast on his tongue. Will start him on fluconazole. He has a long road ahead of him with salvage chemotherapy and then he will be sent to [facility] for stem cell transplant. Attending Statement The exam, history, and the medical decision-making described in the above note were completed with the assistance of the mid-level provider. I reviewed and agree with the findings presented. I attest that I had a [id number] encounter with the patient on the same day, and personally performed and documented my assessment and findings in the medical record. appears well and very stable at moment. tolerated day 1 chemo without problems. has thrush and will begin diflucan. no change in medicines and will follow cbc plat and cmp. Valarie Lopez Sep 27, 2016 12:59 Placido Marie MD Sep 27, 2016 13:03
[2016-09-27] MEDS: FILGRASTIM IV SCH (14:08)
[2016-09-27] MEDS: GRANISETRON INJ 1 MG, DEXAMETHASONE INJ 20 MG in SODIUM CHLORIDE 0.9% INJ 50 ML IV SCH (14:08)
[2016-09-27] MEDS: FLUCONAZOLE 200 MG TAB PO SCH (14:16)
[2016-09-27] MEDS: CLADRIBINE IV SCH (15:22)
[2016-09-27] MEDS: SODIUM CHLORID 0.9% IV SCH (15:22)
[2016-09-27 19:29] LABS: HEMATOCRIT 27.3 % (39.0-51.0); MEAN CELL VOLUME 96.3 FL (80.0-100.0); MEAN CORPUSCULAR HEMOGLOBIN 32.9 PG (27.0-34.0); MEAN CORPUSCULAR HGB CONC 34.1 % (32.0-36.0); RED BLOOD COUNT 2.84 MIL/MM3 (4.50-5.90); RED CELL DISTRIBUTION WIDTH 15.3 % (11.6-17.2); WHITE BLOOD COUNT 24.7 TH/MM3 (4.0-11.0)
[2016-09-27 19:32] LABS: HEMO FLAGS AUTO DIFF
[2016-09-27 19:35] LABS: PLATELET COUNT 13 TH/MM3 (150-450)
[2016-09-27 20:00] LABS: BANDS 4 % (0-6); BLASTS 74 % (0-0); NEUTROPHIL # MANUAL DIFF 5.9 TH/MM3 (1.8-7.7); POLYS (SEG NEUTROPHILS) 20 % (16-70); WBC DIFF SAMPLE 100
[2016-09-27 20:01] LABS: PLATELET ESTIMATE SMEAR LOW (NORMAL); PLATELET MORPHOLOGY NORMAL (NORMAL); SCAN/DIFF FINAL DIFF MANUAL
[2016-09-27] MEDS: ATENOLOL 100 MG TAB PO SCH (20:47)
[2016-09-27] MEDS: CYTARABINE IV SCH ×2 (21:00)
[2016-09-27] MEDS: WATE IV SCH ×2 (21:00)
[2016-09-27] MEDS: DEXTROSE 5% IV SCH ×2 (21:00)
[2016-09-28] VITALS (7 sets, daily range): BP systolic 101–134; BP diastolic 68–85; PULSE 87–98; RESP 16–20; TEMP 96.2–98.6; O2SAT 93–97
[2016-09-28] MEDS: CEFEPIME INJ 2,000 MG in SODIUM CHLORIDE 0.9% INJ 100 ML IV SCH ×4 (00:44→21:53)
[2016-09-28] MEDS: SODIUM CHLOR 0.9% 1000 ML INJ 1,000 ML IV SCH ×3 (00:44→17:45)
[2016-09-28] MEDS: [UNRECOGNIZED DRUG - OTHER] IV SCH (02:10)
[2016-09-28] MEDS: SODIUM CHLORIDE 0.9% IV SCH ×2 (02:10→15:55)
[2016-09-28 07:37] LABS: AUTOMATED NEUTROPHIL # 2.3 TH/MM3 (1.8-7.7); BASOPHIL % 0.1 % (0.0-2.0); HEMATOCRIT 25.1 % (39.0-51.0); LYMPH % 1.6 % (9.0-44.0); LYMPHOCYTE # 0.1 TH/MM3 (1.0-4.8); MEAN CELL VOLUME 95.6 FL (80.0-100.0); MEAN CORPUSCULAR HGB CONC 34.5 % (32.0-36.0); MONO % 73.7 % (0.0-8.0); NEUT % 24.6 % (16.0-70.0); RED BLOOD COUNT 2.62 MIL/MM3 (4.50-5.90); RED CELL DISTRIBUTION WIDTH 14.9 % (11.6-17.2); WHITE BLOOD COUNT 9.4 TH/MM3 (4.0-11.0)
[2016-09-28 07:42] LABS: ALKALINE PHOSPHATASE 81 U/L (45-117); ALT (GPT) 20 U/L (12-78); ANION GAP 6 MEQ/L (5-15); AST (GOT) 13 U/L (15-37); BICARBONATE 29.1 MEQ/L (21.0-32.0); BLOOD UREA NITROGEN 23 MG/DL (7-18); CHLORIDE 101 MEQ/L (98-107); GLOMERULAR FILTRATION RATE 120 ML/MIN (>89); LDH SERUM 741 U/L (87-241); MAGNESIUM 2.3 MG/DL (1.5-2.5); POTASSIUM 4.6 MEQ/L (3.5-5.1); SODIUM (NA) 136 MEQ/L (136-145); TOTAL BILIRUBIN ADULT 0.4 MG/DL (0.2-1.0); URIC ACID 3.8 MG/DL (2.6-7.2)
[2016-09-28 08:36] LABS: HEMO FLAGS AUTO DIFF; PLATELET COUNT 9 TH/MM3 (150-450)
[2016-09-28] MEDS: SERTRALINE HCL 50 MG TAB PO SCH (08:44)
[2016-09-28] MEDS: LISINOPRIL 10 MG TAB PO SCH (08:44)
[2016-09-28] MEDS: metFORMIN HCL 850 MG TAB PO SCH (08:44)
[2016-09-28] MEDS: ALLOPURINOL 300 MG TAB PO SCH (08:45)
[2016-09-28] MEDS: DEXTROAMPHETAMINE/AMPHETAMINE XR 15 MG CAP PO SCH (08:45)
[2016-09-28] MEDS: FLUCONAZOLE 200 MG TAB PO SCH (08:46)
[2016-09-28] MEDS: DOCUSATE SODIUM 100 MG CAP PO SCH ×3 (08:46→17:45)
[2016-09-28] MEDS: SODIUM CHLORIDE 10 ML FLUSH BID IVF SCH ×2 (08:47→20:47)
[2016-09-28] MEDS ORDERED: ACETAMINOPHEN 325 MG TAB PO PRN (09:45)
[2016-09-28] MEDS ORDERED: SODIUM CHLOR 0.9% 250 ML INJ 250 ML IV ONE (09:45)
--- NOTE | 2016-09-28 10:47 | PD.ONC.PN ---
Subjective Subjective Remarks Afebrile overnight. Pt sitting up in bed in no distress. He states he had some mild nausea last night. No other complaints. No bleeding. Objective Data Date Time Temp Pulse Resp B/P Pulse Ox O2 Delivery O2 Flow Rate FiO2 09/28/16 07:50 96.2 93 20 106/71 96 Automatic Cuff 09/28/16 04:00 97.7 87 18 101/68 94 09/28/16 00:00 98.6 98 19 116/68 97 09/27/16 20:00 97.4 102 18 113/62 96 09/27/16 16:00 97.6 100 16 112/70 95 09/27/16 14:20 18 09/27/16 12:02 96.1 88 18 84/52 94 09/27/16 12:00 96.6 89 16 80/55 97 Result Diagram: 09/28/16 0537 09/28/16 0537 Laboratory Results Laboratory Tests Test 09/27/16 09/28/16 09/28/16 19:00 05:37 09:56 White Blood Count 24.7 TH/MM3 9.4 TH/MM3 Red Blood Count 2.84 MIL/MM3 2.62 MIL/MM3 Hemoglobin 9.3 GM/DL 8.7 GM/DL Hematocrit 27.3 % 25.1 % Mean Corpuscular Volume 96.3 FL 95.6 FL Mean Corpuscular Hemoglobin 32.9 PG 33.0 PG Mean Corpuscular Hemoglobin 34.1 % 34.5 % Concent Red Cell Distribution Width 15.3 % 14.9 % Platelet Count 13 TH/MM3 9 TH/MM3 Mean Platelet Volume 7.9 FL 8.0 FL Neutrophils (%) (Auto) % 24.6 % Lymphocytes (%) (Auto) % 1.6 % Monocytes (%) (Auto) % 73.7 % Eosinophils (%) (Auto) % 0.0 % Basophils (%) (Auto) % 0.1 % Neutrophils # (Auto) TH/MM3 2.3 TH/MM3 Lymphocytes # (Auto) TH/MM3 0.1 TH/MM3 Monocytes # (Auto) TH/MM3 6.9 TH/MM3 Eosinophils # (Auto) TH/MM3 0.0 TH/MM3 Basophils # (Auto) TH/MM3 0.0 TH/MM3 CBC Comment AUTO DIFF AUTO DIFF Differential Total Cells 100 Counted Neutrophils % (Manual) 20 % Band Neutrophils % 4 % Lymphocytes % 2 % Neutrophils # (Manual) 5.9 TH/MM3 Differential Comment FINAL DIFF MANUAL Blastocytes 74 % Platelet Estimate LOW Platelet Morphology Comment NORMAL Sodium Level 136 MEQ/L Potassium Level 4.6 MEQ/L Chloride Level 101 MEQ/L Carbon Dioxide Level 29.1 MEQ/L Anion Gap 6 MEQ/L Blood Urea Nitrogen 23 MG/DL Creatinine 0.70 MG/DL Estimat Glomerular Filtration 120 ML/MIN Rate Random Glucose 277 MG/DL Uric Acid 3.8 MG/DL Calcium Level 8.2 MG/DL Phosphorus Level 3.8 MG/DL Magnesium Level 2.3 MG/DL Total Bilirubin 0.4 MG/DL Aspartate Amino Transf 13 U/L (AST/SGOT) Alanine Aminotransferase 20 U/L (ALT/SGPT) Alkaline Phosphatase 81 U/L Lactate Dehydrogenase 741 U/L Total Protein 5.5 GM/DL Albumin 2.8 GM/DL Blood Bank Comment Culture Results Microbiology Date/Time Procedure Status Source Growth 09/26/16 13:57 Aerobic Blood Culture - Preliminary Resulted Blood Line NO GROWTH IN 1 DAY 09/26/16 13:57 Anaerobic Blood Culture - Preliminary Resulted Blood Line NO GROWTH IN 1 DAY 09/26/16 14:02 Aerobic Blood Culture - Preliminary Resulted Blood Peripheral NO GROWTH IN 1 DAY 09/26/16 14:02 Anaerobic Blood Culture - Preliminary Resulted Blood Peripheral NO GROWTH IN 1 DAY Administered Medications Medications (Trade) Dose Ordered Sig/Génesis Route PRN Reason Start Time Stop Time Status Last Admin Dose Admin Acetaminophen (Tylenol) 650 mg Q4H PRN PO PAIN SCALE 0-3 OR TEMP> 100.5F 09/25/16 08:45 09/27/16 05:56 Oxycodone HCl 10 mg 10 mg Q3H PRN PO PAIN SCALE 8 TO 10 09/25/16 08:45 09/27/16 13:20 Sodium Chloride (NS 1000 ml Inj) 1,000 ml @ 100 mls/hr Q10H IV 09/25/16 10:15 09/28/16 08:15 Allopurinol (Zyloprim) 300 mg DAILY PO 09/25/16 10:30 09/28/16 08:45 Amlodipine Besylate (Norvasc) 10 mg DAILY PO 09/26/16 09:00 09/26/16 09:49 Diazepam (Valium) 10 mg HS PO 09/25/16 21:00 09/27/16 02:10 Metformin HCl (Glucophage) 850 mg DAILY PO 09/26/16 09:00 09/28/16 08:44 Sertraline HCl (Zoloft) 50 mg DAILY PO 09/26/16 09:00 09/28/16 08:44 Oxycodone HCl (Roxicodone) 5 mg QID PO 09/25/16 13:00 09/28/16 08:45 Sodium Chloride 2 ml 2 ml BID IVF 09/25/16 21:00 09/27/16 20:47 Ondansetron HCl/ Dextrose (Zofran Inj/D5W Inj) 54 ml @ 216 mls/hr Q8H PRN IV PUSH NAUSEA OR VOMITING 09/25/16 10:30 09/27/16 02:13 Atenolol (Tenormin) 100 mg DAILY@2100 PO 09/25/16 21:00 09/27/16 20:47 Docusate Sodium 100 mg 100 mg TID PO 09/25/16 18:00 09/28/16 08:46 Granisetron HCl 1 mg/Dexamethasone Sodium Phosphate 20 mg/Sodium Chloride 56 ml @ 112 mls/hr Q24H IV 09/26/16 12:00 09/30/16 12:29 09/27/16 14:08 Sodium Chloride 250 ml @ 100 mls/hr Q24H IV 09/26/16 13:00 09/27/16 20:52 Sodium Chloride 250 ml @ 100 mls/hr Q24H IV 09/26/16 20:00 09/27/16 02:50 Cladribine 12 mg/ Sodium Chloride 512 ml @ 256 mls/hr Q24H IV 09/26/16 13:00 09/30/16 14:59 09/27/16 15:22 Filgrastim 480 mcg/Sodium Chloride 51.6 ml @ 206.4 mls/ hr Q24H IV 09/26/16 12:30 09/30/16 12:44 09/27/16 14:08 Cefepime HCl/ Sodium Chloride (Maxipime Inj/NS Inj) 100 ml @ 200 mls/hr Q8H IV 09/26/16 14:00 09/28/16 05:38 Amphetamine/ Dextroamphetamine 15 mg 15 mg DAILY PO 09/27/16 09:00 09/28/16 08:45 Mitoxantrone HCl/ Sodium Chloride (Novantrone Inj/ NS Inj) 62 ml @ 372 mls/hr DAILY@01 IV 09/27/16 01:00 09/29/16 01:09 09/28/16 02:10 Lisinopril (Prinivil) 10 mg DAILY PO 09/28/16 09:00 09/28/16 08:44 Fluconazole 200 mg 200 mg DAILY PO 09/27/16 13:00 09/28/16 08:46 Cytarabine/ Dextrose (Ana Paula C Inj/D5W 500 ml Inj) 500 ml @ 125 mls/hr DAILY@20 IV 09/27/16 20:00 09/30/16 23:59 09/27/16 21:00 Objective Remarks GENERAL: Overweight middle-aged male sitting on side of bed in no distress. SKIN: Warm and dry. Port to L chest. Asymptomatic. HEAD: Normocephalic. EYES: No injection or drainage. NECK: Supple, trachea midline. CARDIOVASCULAR: +S1/S2. No murmur appreciated. RESPIRATORY: Lungs clear. Breathing unlabored. GASTROINTESTINAL: Abdomen soft, non-tender, nondistended. EXTREMITIES: No cyanosis, or edema. NEUROLOGICAL: No obvious focal deficit. Awake, alert, and oriented x3. Assessment/Plan Assessment 46 y/o male admitted for salvage chemotherapy for relapsed AML. Plan 1. He is tolerating the CLAG-M chemo well. Leukocytosis much improved today. 2. We will give platelet infusion today for platelet level of 9K. No bleeding. 3. Continue cefepime, fluconazole. Oral thrush improved. 4. All electrolytes WNL today. 5. Daily CBC, CMP, Mag, Phos and Uric acid. The exam, history, and the medical decision-making described in the above note were completed with the assistance of the mid-level provider. I reviewed and agree with the findings presented. I attest that I had a [id number] encounter with the patient on the same day, and personally performed and documented my assessment and findings in the medical record. patient doing well and feels well. no signs or symptoms of infection. Will continue treatment and will receive platelets today. Valarie Lopez Sep 28, 2016 10:47 Placido Marie MD Sep 28, 2016 14:42
[2016-09-28 12:44] LABS: BANDS 10 % (0-6); BASOPHILS 1 % (0-2); BLASTS 51 % (0-0); PLATELET ESTIMATE SMEAR RARE (NORMAL); PLATELET MORPHOLOGY NORMAL (NORMAL); POLYS (SEG NEUTROPHILS) 33 % (16-70); WBC DIFF SAMPLE 100
[2016-09-28 12:45] LABS: SCAN/DIFF FINAL DIFF MANUAL
[2016-09-28] MEDS: SODIUM CHLOR 0.9% 250 ML INJ 250 ML IV SCH (13:00)
[2016-09-28] MEDS: GRANISETRON INJ 1 MG, DEXAMETHASONE INJ 20 MG in SODIUM CHLORIDE 0.9% INJ 50 ML IV SCH (15:26)
[2016-09-28] MEDS: FILGRASTIM IV SCH (15:55)
[2016-09-28] MEDS: CLADRIBINE IV SCH (16:22)
[2016-09-28] MEDS: SODIUM CHLORID 0.9% IV SCH (16:22)
[2016-09-28] MEDS: ATENOLOL 100 MG TAB PO SCH (20:47)
[2016-09-28] MEDS: DEXTROSE 5% IV SCH ×4 (20:48→21:03)
[2016-09-28] MEDS: WATE IV SCH ×4 (20:48→21:03)
[2016-09-28] MEDS: CYTARABINE IV SCH ×4 (20:48→21:03)
[2016-09-29] VITALS: BP 120/77; PULSE 90; RESP 18; TEMP 96.9; O2SAT 94
[2016-09-29] MEDS: DIAZEPAM 10 MG TAB PO SCH (01:26)
[2016-09-29] MEDS: SODIUM CHLORIDE 0.9% IV SCH ×2 (01:51→13:29)
[2016-09-29] MEDS: [UNRECOGNIZED DRUG - OTHER] IV SCH (01:51)
[2016-09-29] MEDS: SODIUM CHLOR 0.9% 250 ML INJ 250 ML IV SCH ×3 (01:57→18:41)
[2016-09-29] MEDS: SODIUM CHLOR 0.9% 1000 ML INJ 1,000 ML IV SCH ×3 (01:58→22:10)
[2016-09-29 04:00] VITALS: BP 106/69; PULSE 86; RESP 18; TEMP 97.7; O2SAT 96
[2016-09-29] MEDS: CEFEPIME INJ 2,000 MG in SODIUM CHLORIDE 0.9% INJ 100 ML IV SCH ×3 (05:10→22:06)
[2016-09-29 06:29] LABS: HEMATOCRIT 23.7 % (39.0-51.0); MEAN CELL VOLUME 95.4 FL (80.0-100.0); MEAN CORPUSCULAR HEMOGLOBIN 33.6 PG (27.0-34.0); MEAN CORPUSCULAR HGB CONC 35.2 % (32.0-36.0); RED BLOOD COUNT 2.49 MIL/MM3 (4.50-5.90); RED CELL DISTRIBUTION WIDTH 14.7 % (11.6-17.2); WHITE BLOOD COUNT 1.9 TH/MM3 (4.0-11.0)
[2016-09-29 06:32] LABS: HEMO FLAGS AUTO DIFF
[2016-09-29 06:33] LABS: PLATELET COUNT 12 TH/MM3 (150-450)
[2016-09-29 06:36] LABS: ALT (GPT) 21 U/L (12-78); ANION GAP 7 MEQ/L (5-15); AST (GOT) 5 U/L (15-37); BICARBONATE 28.1 MEQ/L (21.0-32.0); BLOOD UREA NITROGEN 20 MG/DL (7-18); CHLORIDE 101 MEQ/L (98-107); GLOMERULAR FILTRATION RATE 144 ML/MIN (>89); MAGNESIUM 2.2 MG/DL (1.5-2.5); POTASSIUM 4.2 MEQ/L (3.5-5.1); SODIUM (NA) 136 MEQ/L (136-145); URIC ACID 2.8 MG/DL (2.6-7.2)
[2016-09-29 06:38] LABS: ALKALINE PHOSPHATASE 91 U/L (45-117); TOTAL BILIRUBIN ADULT 0.4 MG/DL (0.2-1.0)
[2016-09-29 08:00] VITALS: BP 118/78; PULSE 86; RESP 18; TEMP 96.6; O2SAT 96
[2016-09-29 08:16] LABS: BANDS 2 % (0-6); BLASTS 44 % (0-0); POLYS (SEG NEUTROPHILS) 52 % (16-70); WBC DIFF SAMPLE 100
[2016-09-29 08:18] LABS: KERATOCYTES OCC (NORMAL); PLATELET ESTIMATE SMEAR RARE (NORMAL); PLATELET MORPHOLOGY NORMAL (NORMAL); SCAN/DIFF FINAL DIFF MANUAL
[2016-09-29] MEDS: DEXTROAMPHETAMINE/AMPHETAMINE XR 15 MG CAP PO SCH ×3 (09:00→16:57)
[2016-09-29] MEDS: SODIUM CHLORIDE 10 ML FLUSH BID IVF SCH ×2 (09:00→21:00)
[2016-09-29] MEDS: amLODIPine BESYLATE 5 MG TAB PO SCH (09:13)
[2016-09-29] MEDS: LISINOPRIL 10 MG TAB PO SCH (09:13)
[2016-09-29] MEDS: ALLOPURINOL 300 MG TAB PO SCH (09:13)
[2016-09-29] MEDS: metFORMIN HCL 850 MG TAB PO SCH (09:13)
[2016-09-29] MEDS: SERTRALINE HCL 50 MG TAB PO SCH (09:13)
[2016-09-29] MEDS: DOCUSATE SODIUM 100 MG CAP PO SCH ×3 (09:13→18:41)
[2016-09-29] MEDS: FLUCONAZOLE 200 MG TAB PO SCH (09:13)
--- NOTE | 2016-09-29 10:40 | PD.ONC.PN ---
Subjective Subjective Remarks Afebrile overnight. No nausea. Tolerating chemotherapy. Some constipation today. He states he might try the PRN laxative later today. Objective Data Date Time Temp Pulse Resp B/P Pulse Ox O2 Delivery O2 Flow Rate FiO2 09/29/16 08:00 96.6 86 18 118/78 96 Manual Cuff/Auscultation 09/29/16 04:00 97.7 86 18 106/69 96 09/29/16 00:00 96.9 90 18 120/77 94 09/28/16 20:00 96.5 88 17 129/85 94 09/28/16 15:00 96.2 91 20 122/82 93 09/28/16 11:20 98.0 97 20 134/83 96 09/28/16 11:02 98.0 96 16 134/83 96 Result Diagram: 09/29/16 0500 09/29/16 0500 Laboratory Results Laboratory Tests Test 09/29/16 05:00 White Blood Count 1.9 TH/MM3 Red Blood Count 2.49 MIL/MM3 Hemoglobin 8.4 GM/DL Hematocrit 23.7 % Mean Corpuscular Volume 95.4 FL Mean Corpuscular Hemoglobin 33.6 PG Mean Corpuscular Hemoglobin 35.2 % Concent Red Cell Distribution Width 14.7 % Platelet Count 12 TH/MM3 Mean Platelet Volume 9.1 FL Neutrophils (%) (Auto) % Lymphocytes (%) (Auto) % Monocytes (%) (Auto) % Eosinophils (%) (Auto) % Basophils (%) (Auto) % Neutrophils # (Auto) TH/MM3 Lymphocytes # (Auto) TH/MM3 Monocytes # (Auto) TH/MM3 Eosinophils # (Auto) TH/MM3 Basophils # (Auto) TH/MM3 CBC Comment AUTO DIFF Differential Total Cells 100 Counted Neutrophils % (Manual) 52 % Band Neutrophils % 2 % Lymphocytes % 2 % Neutrophils # (Manual) 1.0 TH/MM3 Differential Comment FINAL DIFF MANUAL Blastocytes 44 % Platelet Estimate RARE Platelet Morphology Comment NORMAL Keratocytes OCC Sodium Level 136 MEQ/L Potassium Level 4.2 MEQ/L Chloride Level 101 MEQ/L Carbon Dioxide Level 28.1 MEQ/L Anion Gap 7 MEQ/L Blood Urea Nitrogen 20 MG/DL Creatinine 0.60 MG/DL Estimat Glomerular Filtration 144 ML/MIN Rate Random Glucose 318 MG/DL Uric Acid 2.8 MG/DL Calcium Level 8.2 MG/DL Phosphorus Level 3.2 MG/DL Magnesium Level 2.2 MG/DL Total Bilirubin 0.4 MG/DL Aspartate Amino Transf 5 U/L (AST/SGOT) Alanine Aminotransferase 21 U/L (ALT/SGPT) Alkaline Phosphatase 91 U/L Total Protein 5.4 GM/DL Albumin 2.9 GM/DL Culture Results Microbiology Date/Time Procedure Status Source Growth 09/26/16 13:57 Aerobic Blood Culture - Preliminary Resulted Blood Line NO GROWTH IN 2 DAYS 09/26/16 13:57 Anaerobic Blood Culture - Preliminary Resulted Blood Line NO GROWTH IN 2 DAYS 09/26/16 14:02 Aerobic Blood Culture - Preliminary Resulted Blood Peripheral NO GROWTH IN 2 DAYS 09/26/16 14:02 Anaerobic Blood Culture - Preliminary Resulted Blood Peripheral NO GROWTH IN 2 DAYS Administered Medications Medications (Trade) Dose Ordered Sig/Génesis Route PRN Reason Start Time Stop Time Status Last Admin Dose Admin Acetaminophen (Tylenol) 650 mg Q4H PRN PO PAIN SCALE 0-3 OR TEMP> 100.5F 09/25/16 08:45 09/27/16 05:56 Oxycodone HCl 10 mg 10 mg Q3H PRN PO PAIN SCALE 8 TO 10 09/25/16 08:45 09/28/16 15:18 Sodium Chloride (NS 1000 ml Inj) 1,000 ml @ 100 mls/hr Q10H IV 09/25/16 10:15 09/29/16 01:58 Allopurinol (Zyloprim) 300 mg DAILY PO 09/25/16 10:30 09/29/16 09:13 Diazepam (Valium) 10 mg HS PO 09/25/16 21:00 09/29/16 01:26 Metformin HCl (Glucophage) 850 mg DAILY PO 09/26/16 09:00 09/29/16 09:13 Sertraline HCl (Zoloft) 50 mg DAILY PO 09/26/16 09:00 09/29/16 09:13 Oxycodone HCl (Roxicodone) 5 mg QID PO 09/25/16 13:00 09/28/16 20:47 Sodium Chloride 2 ml 2 ml BID IVF 09/25/16 21:00 09/29/16 09:00 Ondansetron HCl/ Dextrose (Zofran Inj/D5W Inj) 54 ml @ 216 mls/hr Q8H PRN IV PUSH NAUSEA OR VOMITING 09/25/16 10:30 09/27/16 02:13 Atenolol (Tenormin) 100 mg DAILY@2100 PO 09/25/16 21:00 09/28/16 20:47 Docusate Sodium 100 mg 100 mg TID PO 09/25/16 18:00 09/29/16 09:13 Granisetron HCl 1 mg/Dexamethasone Sodium Phosphate 20 mg/Sodium Chloride 56 ml @ 112 mls/hr Q24H IV 09/26/16 12:00 09/30/16 12:29 09/28/16 15:26 Sodium Chloride 250 ml @ 100 mls/hr Q24H IV 09/26/16 13:00 09/28/16 13:00 Sodium Chloride 250 ml @ 100 mls/hr Q24H IV 09/26/16 20:00 09/29/16 01:57 Cladribine 12 mg/ Sodium Chloride 512 ml @ 256 mls/hr Q24H IV 09/26/16 13:00 09/30/16 14:59 09/28/16 16:22 Filgrastim 480 mcg/Sodium Chloride 51.6 ml @ 206.4 mls/ hr Q24H IV 09/26/16 12:30 09/30/16 12:44 09/28/16 15:55 Cefepime HCl/ Sodium Chloride (Maxipime Inj/NS Inj) 100 ml @ 200 mls/hr Q8H IV 09/26/16 14:00 09/29/16 05:10 Amphetamine/ Dextroamphetamine (Adderall Xr) 15 mg DAILY PO 09/27/16 09:00 09/28/16 08:45 Lisinopril (Prinivil) 10 mg DAILY PO 09/28/16 09:00 09/29/16 09:13 Fluconazole (Diflucan) 200 mg DAILY PO 09/27/16 13:00 09/29/16 09:13 Amlodipine Besylate (Norvasc) 5 mg DAILY PO 09/29/16 09:00 09/29/16 09:13 Objective Remarks GENERAL: Middle aged male, sitting up in bed in [facility]. SKIN: Warm and dry. a few petechiae on left shoulder HEAD: Normocephalic. EYES: No scleral icterus. No injection or drainage. NECK: Supple, trachea midline. CARDIOVASCULAR: Regular rate and rhythm RESPIRATORY: Breath sounds equal bilaterally. No accessory muscle use. GASTROINTESTINAL: Abdomen soft, non-tender, nondistended. EXTREMITIES: No cyanosis NEUROLOGICAL: No obvious focal deficit. Awake, alert, and oriented x3. Assessment/Plan Problem List: (1) AML (acute myeloid leukemia) Status: Acute Plan: 09/29: D4. continue chemotherapy. no transfusion. 09/28: D3. 09/27: D2 09/26: Start on CLAG-M chemotherapy for relapsed AML. Received Neupogen yesterday. He spiked a fever this afternoon of 101.3. BC, UA, and CXR ordered. Will start pt on Cefepime. Await BC results. -- He has been getting CBC q2 weeks. On 09/18 it was noted that he had a white count at 11k and a platelet count of 76k. Blasts were at 38%. He was brought in to the clinic on 09/24 for a bone marrow biopsy. A CBC was done and showed a white count of 63.7, Hgb 12.2, and platelet count was 33K. The blasts were at 73 %. Decision was made at that time to admit for salvage chemo. History: 11/04/16: AML Diagnosis made. 46XY, +NPM1 mutation detected, FLT3 negative-- indicates favorable prognosis. 11/05-11/28: Initial induction with MELL-C and idarubicin (7+3). STAT Leukapheresis due to leukostasis. On D25, repeat bone marrow showed residual leukemia. 12/06-12/27: Re-induction with FLANG chemotherapy. Repeat bone marrow biopsy negative for residual AML. Patient in Complete Remission 01/06-01/10: C1 consolidation chemotherapy with Mell-C. 02/17-02/21: C2 consolidation chemotherapy with MELL-C. 03/25-03/30: C3 consolidation chemotherapy with MELL-C 04/28-05/02: C4 consolidation chemo with MELL-C (2) Hypertension Status: Acute Plan: -- Continue amlodipine, lisinopril -- BP controlled (3) Diabetes Status: Acute Plan: -- 09/29: stop Glucophage, start SSI Novolog (4) Fever Status: Acute Plan: -- BC no growth x 2 days -- Started on IV Cefepime -- CXR negative (5) DVT prophylaxis Status: Acute Plan: -- Thrombocytopenia; will hold off on chemical prophylaxis at this time. (6) Constipation Status: Acute Plan: --on Colace schedule --PRN laxative Assessment 46 y/o male admitted for salvage chemotherapy for relapsed AML. Attending Statement c/o bone pain OOB to chair no more fevers. Tolerating chemo well. Day #4. d/w pt, MIL and RN Plat 12 K. Give plat Tx tonight. ANC 1,000. He will be neutropenic tomorrow. The exam, history, and the medical decision-making described in the above note were completed with the assistance of the mid-level provider. I reviewed and agree with the findings presented. I attest that I had a [id number] encounter with the patient on the same day, and personally performed and documented my assessment and findings in the medical record. Problem Qualifiers (1) Diabetes: Qualified Code: E11.9 - Type 2 diabetes mellitus without complication, without long-term current use of insulin (2) Fever: Qualified Code: R50.9 - Fever, unspecified fever cause (3) Constipation: Qualified Code: K59.00 - Constipation, unspecified constipation type Janet Homl Sep 29, 2016 10:40 Alexandra Olea MD Sep 29, 2016 18:23
[2016-09-29] MEDS ORDERED: GLUCAGON 1 MG/ML VIAL OTHER PRN (10:45)
[2016-09-29] MEDS ORDERED: DEXTROSE 50% IN WATER 50 ML VIAL(D50) IV PUSH PRN (10:45)
[2016-09-29] MEDS: INSULIN ASPART SUPPLEMENTAL SCALE SQ SCH ×3 (11:04→22:06)
[2016-09-29 12:00] VITALS: BP 118/63; PULSE 78; RESP 16; TEMP 96.8; O2SAT 93
[2016-09-29] MEDS: GRANISETRON INJ 1 MG, DEXAMETHASONE INJ 20 MG in SODIUM CHLORIDE 0.9% INJ 50 ML IV SCH (12:39)
[2016-09-29] MEDS: FILGRASTIM IV SCH (13:29)
[2016-09-29] MEDS: CLADRIBINE IV SCH (14:23)
[2016-09-29] MEDS: SODIUM CHLORID 0.9% IV SCH (14:23)
[2016-09-29] MEDS ORDERED: SODIUM CHLOR 0.9% 250 ML INJ 250 ML IV ONE (18:15)
[2016-09-29] MEDS: DEXTROSE 5% IV SCH ×2 (18:38)
[2016-09-29] MEDS: CYTARABINE IV SCH ×2 (18:38)
[2016-09-29] MEDS: WATE IV SCH ×2 (18:38)
[2016-09-29 20:00] VITALS: BP 134/83; PULSE 89; RESP 16; TEMP 97.5; O2SAT 95
[2016-09-29] MEDS ORDERED: diphenhydrAMINE HCL 25 MG CAP PO PRN (20:00)
[2016-09-29] MEDS ORDERED: ACETAMINOPHEN 325 MG TAB PO PRN (20:00)
[2016-09-29] MEDS: ATENOLOL 100 MG TAB PO SCH (22:03)
[2016-09-29 23:35] VITALS: BP 131/80; PULSE 91; RESP 20; TEMP 96.7; O2SAT 94
[2016-09-30] VITALS (12 sets, daily range): BP systolic 109–144; BP diastolic 57–89; PULSE 80–91; RESP 16–19; TEMP 96.7–98; O2SAT 93–98
[2016-09-30] MEDS: DIAZEPAM 10 MG TAB PO SCH ×2 (00:20→22:07)
[2016-09-30] MEDS: CEFEPIME INJ 2,000 MG in SODIUM CHLORIDE 0.9% INJ 100 ML IV SCH (05:34)
[2016-09-30 05:49] LABS: HEMATOCRIT 21.9 % (39.0-51.0); MEAN CELL VOLUME 94.3 FL (80.0-100.0); MEAN CORPUSCULAR HEMOGLOBIN 33.3 PG (27.0-34.0); MEAN CORPUSCULAR HGB CONC 35.3 % (32.0-36.0); RED BLOOD COUNT 2.33 MIL/MM3 (4.50-5.90); RED CELL DISTRIBUTION WIDTH 14.7 % (11.6-17.2); WHITE BLOOD COUNT 0.6 TH/MM3 (4.0-11.0)
[2016-09-30 06:15] LABS: ALT (GPT) 18 U/L (12-78); ANION GAP 7 MEQ/L (5-15); AST (GOT) LESS THAN 3 U/L (15-37); BICARBONATE 29.2 MEQ/L (21.0-32.0); BLOOD UREA NITROGEN 19 MG/DL (7-18); CHLORIDE 102 MEQ/L (98-107); GLOMERULAR FILTRATION RATE 141 ML/MIN (>89); MAGNESIUM 2.3 MG/DL (1.5-2.5); POTASSIUM 4.4 MEQ/L (3.5-5.1); SODIUM (NA) 138 MEQ/L (136-145)
[2016-09-30 06:18] LABS: HEMO FLAGS AUTO DIFF
[2016-09-30 06:19] LABS: ALKALINE PHOSPHATASE 65 U/L (45-117); LDH SERUM 355 U/L (87-241); TOTAL BILIRUBIN ADULT 0.6 MG/DL (0.2-1.0); URIC ACID 2.4 MG/DL (2.6-7.2)
[2016-09-30 06:21] LABS: PLATELET COUNT 10 TH/MM3 (150-450)
[2016-09-30] MEDS: INSULIN ASPART SUPPLEMENTAL SCALE SQ SCH ×4 (07:30→22:06)
[2016-09-30] MEDS ORDERED: ACETAMINOPHEN 325 MG TAB PO PRN (08:15)
[2016-09-30] MEDS ORDERED: diphenhydrAMINE HCL 25 MG CAP PO PRN ×2 (08:15→16:00)
[2016-09-30] MEDS ORDERED: SODIUM CHLOR 0.9% 250 ML INJ 250 ML IV ONE ×2 (08:15→16:00)
[2016-09-30 08:41] LABS: BANDS 2 % (0-6); BLASTS 46 % (0-0); NEUTROPHIL # MANUAL DIFF 0.3 TH/MM3 (1.8-7.7); POLYS (SEG NEUTROPHILS) 44 % (16-70); WBC DIFF SAMPLE 50
[2016-09-30 08:42] LABS: PLATELET ESTIMATE SMEAR RARE (NORMAL); PLATELET MORPHOLOGY NORMAL (NORMAL); SCAN/DIFF FINAL DIFF MANUAL
[2016-09-30] MEDS: LISINOPRIL 10 MG TAB PO SCH (09:22)
[2016-09-30] MEDS: SERTRALINE HCL 50 MG TAB PO SCH (09:22)
[2016-09-30] MEDS: FLUCONAZOLE 200 MG TAB PO SCH (09:22)
[2016-09-30] MEDS: SODIUM CHLORIDE 10 ML FLUSH BID IVF SCH ×2 (09:22→21:00)
[2016-09-30] MEDS: ALLOPURINOL 300 MG TAB PO SCH (09:22)
[2016-09-30] MEDS: DOCUSATE SODIUM 100 MG CAP PO SCH ×3 (09:22→18:05)
[2016-09-30] MEDS: amLODIPine BESYLATE 5 MG TAB PO SCH (09:22)
[2016-09-30] MEDS: DEXTROAMPHETAMINE/AMPHETAMINE XR 15 MG CAP PO SCH (09:22)
[2016-09-30] MEDS: SODIUM CHLOR 0.9% 1000 ML INJ 1,000 ML IV SCH ×2 (10:15→22:12)
[2016-09-30] MEDS ORDERED: METHYLNALTREXONE BROMIDE 12 MG/0.6 ML VIAL SQ ONE (11:30)
--- NOTE | 2016-09-30 11:56 | PD.ONC.PN ---
Subjective Subjective Remarks Afebrile overnight. Patient tolerating chemotherapy. No nausea or vomiting. He spoke with [facility] and already has two matches for transplant. Eating well. still has not had a bowel movement in a few days. Objective Data Date Time Temp Pulse Resp B/P Pulse Ox O2 Delivery O2 Flow Rate FiO2 09/30/16 11:25 96.7 88 16 126/68 98 09/30/16 11:10 97.9 91 16 131/77 96 09/30/16 10:51 97.0 90 16 126/72 96 09/30/16 08:00 97.2 80 16 118/63 95 09/30/16 05:00 97.5 81 16 109/57 95 09/30/16 00:18 96.7 87 19 138/83 96 09/29/16 23:35 96.7 91 20 131/80 94 09/29/16 23:05 19 09/29/16 23:05 19 09/29/16 20:00 97.5 89 16 134/83 95 09/29/16 12:00 96.8 78 16 118/63 93 Result Diagram: 09/30/16 0535 09/30/16 0535 Laboratory Results Laboratory Tests Test 09/29/16 09/30/16 09/30/16 18:31 05:35 08:30 Blood Bank Comment White Blood Count 0.6 TH/MM3 Red Blood Count 2.33 MIL/MM3 Hemoglobin 7.7 GM/DL Hematocrit 21.9 % Mean Corpuscular Volume 94.3 FL Mean Corpuscular Hemoglobin 33.3 PG Mean Corpuscular Hemoglobin 35.3 % Concent Red Cell Distribution Width 14.7 % Platelet Count 10 TH/MM3 Mean Platelet Volume 8.7 FL Neutrophils (%) (Auto) % Lymphocytes (%) (Auto) % Monocytes (%) (Auto) % Eosinophils (%) (Auto) % Basophils (%) (Auto) % Neutrophils # (Auto) TH/MM3 Lymphocytes # (Auto) TH/MM3 Monocytes # (Auto) TH/MM3 Eosinophils # (Auto) TH/MM3 Basophils # (Auto) TH/MM3 CBC Comment AUTO DIFF Differential Total Cells 50 Counted Neutrophils % (Manual) 44 % Band Neutrophils % 2 % Lymphocytes % 6 % Monocytes % 2 % Neutrophils # (Manual) 0.3 TH/MM3 Differential Comment FINAL DIFF MANUAL Atypical Lymphocytes % Blastocytes 46 % Platelet Estimate RARE Platelet Morphology Comment NORMAL Sodium Level 138 MEQ/L Potassium Level 4.4 MEQ/L Chloride Level 102 MEQ/L Carbon Dioxide Level 29.2 MEQ/L Anion Gap 7 MEQ/L Blood Urea Nitrogen 19 MG/DL Creatinine 0.61 MG/DL Estimat Glomerular Filtration 141 ML/MIN Rate Random Glucose 271 MG/DL Uric Acid 2.4 MG/DL Calcium Level 8.4 MG/DL Phosphorus Level 3.4 MG/DL Magnesium Level 2.3 MG/DL Total Bilirubin 0.6 MG/DL Aspartate Amino Transf LESS THAN 3 U/L (AST/SGOT) Alanine Aminotransferase 18 U/L (ALT/SGPT) Alkaline Phosphatase 65 U/L Lactate Dehydrogenase 355 U/L Total Protein 5.3 GM/DL Albumin 2.8 GM/DL Administered Medications Medications (Trade) Dose Ordered Sig/Génesis Route PRN Reason Start Time Stop Time Status Last Admin Dose Admin Acetaminophen (Tylenol) 650 mg Q4H PRN PO PAIN SCALE 0-3 OR TEMP> 100.5F 09/25/16 08:45 09/27/16 05:56 Oxycodone HCl 10 mg 10 mg Q3H PRN PO PAIN SCALE 8 TO 10 09/25/16 08:45 09/29/16 11:40 Sodium Chloride (NS 1000 ml Inj) 1,000 ml @ 100 mls/hr Q10H IV 09/25/16 10:15 09/30/16 10:15 Allopurinol (Zyloprim) 300 mg DAILY PO 09/25/16 10:30 09/30/16 09:22 Diazepam (Valium) 10 mg HS PO 09/25/16 21:00 09/30/16 00:20 Sertraline HCl (Zoloft) 50 mg DAILY PO 09/26/16 09:00 09/30/16 09:22 Oxycodone HCl (Roxicodone) 5 mg QID PO 09/25/16 13:00 09/30/16 09:23 Sodium Chloride 2 ml 2 ml BID IVF 09/25/16 21:00 09/30/16 09:22 Ondansetron HCl/ Dextrose (Zofran Inj/D5W Inj) 54 ml @ 216 mls/hr Q8H PRN IV PUSH NAUSEA OR VOMITING 09/25/16 10:30 09/27/16 02:13 Atenolol (Tenormin) 100 mg DAILY@2100 PO 09/25/16 21:00 09/29/16 22:03 Docusate Sodium 100 mg 100 mg TID PO 09/25/16 18:00 09/30/16 09:22 Granisetron HCl 1 mg/Dexamethasone Sodium Phosphate 20 mg/Sodium Chloride 56 ml @ 112 mls/hr Q24H IV 09/26/16 12:00 09/30/16 12:29 09/29/16 12:39 Sodium Chloride 250 ml @ 100 mls/hr Q24H IV 09/26/16 13:00 09/29/16 14:16 Sodium Chloride 250 ml @ 100 mls/hr Q24H IV 09/26/16 20:00 09/29/16 18:41 Cladribine 12 mg/ Sodium Chloride 512 ml @ 256 mls/hr Q24H IV 09/26/16 13:00 09/30/16 14:59 09/29/16 14:23 Filgrastim/Sodium Chloride (Neupogen Inj/NS Inj) 51.6 ml @ 206.4 mls/ hr Q24H IV 09/26/16 12:30 09/30/16 12:44 09/29/16 13:29 Amphetamine/ Dextroamphetamine (Adderall Xr) 15 mg DAILY PO 09/27/16 09:00 09/30/16 09:22 Lisinopril (Prinivil) 10 mg DAILY PO 09/28/16 09:00 09/30/16 09:22 Fluconazole (Diflucan) 200 mg DAILY PO 09/27/16 13:00 09/30/16 09:22 Amlodipine Besylate 5 mg 5 mg DAILY PO 09/29/16 09:00 09/30/16 09:22 Cytarabine/ Dextrose (Mell C Inj/D5W 500 ml Inj) 500 ml @ 125 mls/hr DAILY@2030 IV 09/28/16 20:30 09/30/16 23:59 09/29/16 18:38 Acetaminophen (Tylenol) 650 mg Q4H PRN PO SEE LABEL COMMENTS 09/30/16 08:15 09/30/16 12:16 09/30/16 09:22 Diphenhydramine HCl (Benadryl) 25 mg Q4H PRN PO SEE LABEL COMMENTS 09/30/16 08:15 09/30/16 12:16 09/30/16 09:21 Objective Remarks GENERAL: Middle aged male, well dressed sitting up in bed in nad. SKIN: Warm and dry. port in place, right chest wall HEAD: Normocephalic. EYES: No injection or drainage. NECK: Supple, trachea midline. CARDIOVASCULAR: Regular rate and rhythm RESPIRATORY: Breath sounds equal bilaterally. No accessory muscle use. GASTROINTESTINAL: Abdomen soft, non-tender, nondistended. EXTREMITIES: No cyanosis. no edema. NEUROLOGICAL: No obvious focal deficit. Awake, alert, and oriented x3. Assessment/Plan Problem List: (1) AML (acute myeloid leukemia) Status: Acute Plan: 09/30: D5. last day of chemotherapy. will give 1 unit platelets. 09/29: D4. continue chemotherapy. no transfusion. 09/28: D3. 09/27: D2 09/26: Start on CLAG-M chemotherapy for relapsed AML. Received Neupogen yesterday. He spiked a fever this afternoon of 101.3. BC, UA, and CXR ordered. Will start pt on Cefepime. Await BC results. -- He has been getting CBC q2 weeks. On 09/18 it was noted that he had a white count at 11k and a platelet count of 76k. Blasts were at 38%. He was brought in to the clinic on 09/24 for a bone marrow biopsy. A CBC was done and showed a white count of 63.7, Hgb 12.2, and platelet count was 33K. The blasts were at 73 %. Decision was made at that time to admit for salvage chemo. History: 11/04/16: AML Diagnosis made. 46XY, +NPM1 mutation detected, FLT3 negative-- indicates favorable prognosis. 11/05-11/28: Initial induction with MELL-C and idarubicin (7+3). STAT Leukapheresis due to leukostasis. On D25, repeat bone marrow showed residual leukemia. 12/06-12/27: Re-induction with FLANG chemotherapy. Repeat bone marrow biopsy negative for residual AML. Patient in Complete Remission 01/06-01/10: C1 consolidation chemotherapy with Mell-C. 02/17-02/21: C2 consolidation chemotherapy with MELL-C. 03/25-03/30: C3 consolidation chemotherapy with MELL-C 04/28-05/02: C4 consolidation chemo with MELL-C (2) Hypertension Status: Acute Plan: -- Continue amlodipine, lisinopril -- BP controlled (3) Diabetes Status: Acute Plan: --on SSI Novolog (4) Fever Status: Acute Plan: -- BC no growth -- on prophylactic Levaquin -- CXR negative (5) DVT prophylaxis Status: Acute Plan: -- Thrombocytopenia; will hold off on chemical prophylaxis at this time. (6) Constipation Status: Acute Plan: --on Colace schedule --PRN laxative --PRN Relistor Assessment 46 y/o male admitted for salvage chemotherapy for relapsed AML. Attending Statement no new c/o Tolerating chemo well. day 5 today. plat and blood support. change cefepime to oral levaquin. The exam, history, and the medical decision-making described in the above note were completed with the assistance of the mid-level provider. I reviewed and agree with the findings presented. I attest that I had a [id number] encounter with the patient on the same day, and personally performed and documented my assessment and findings in the medical record. Problem Qualifiers (1) Diabetes: Qualified Code: E11.9 - Type 2 diabetes mellitus without complication, without long-term current use of insulin (2) Fever: Qualified Code: R50.9 - Fever, unspecified fever cause (3) Constipation: Qualified Code: K59.00 - Constipation, unspecified constipation type Janet Holm Sep 30, 2016 11:56 Alexandra Olea MD Sep 30, 2016 16:09
[2016-09-30] MEDS: GRANISETRON INJ 1 MG, DEXAMETHASONE INJ 20 MG in SODIUM CHLORIDE 0.9% INJ 50 ML IV SCH (12:13)
[2016-09-30] MEDS: FILGRASTIM IV SCH (13:00)
[2016-09-30] MEDS: SODIUM CHLORIDE 0.9% IV SCH (13:00)
[2016-09-30] MEDS: SODIUM CHLOR 0.9% 250 ML INJ 250 ML IV SCH ×2 (13:26→18:03)
[2016-09-30] MEDS: SODIUM CHLORID 0.9% IV SCH (13:30)
[2016-09-30] MEDS: CLADRIBINE IV SCH (13:30)
[2016-09-30] MEDS: WATE IV SCH ×2 (18:05)
[2016-09-30] MEDS: DEXTROSE 5% IV SCH ×2 (18:05)
[2016-09-30] MEDS: CYTARABINE IV SCH ×2 (18:05)
[2016-09-30] MEDS: ATENOLOL 100 MG TAB PO SCH (22:07)
[2016-09-30] MEDS: diphenhydrAMINE HCL 25 MG CAP PO PRN (22:10)
[2016-09-30] MEDS: ACETAMINOPHEN 325 MG TAB PO PRN (22:11)
[2016-10-01] VITALS (9 sets, daily range): BP systolic 103–140; BP diastolic 59–82; PULSE 70–88; RESP 14–20; TEMP 96–98; O2SAT 93–98
[2016-10-01] MEDS: diphenhydrAMINE HCL 25 MG CAP PO PRN ×2 (04:25→10:57)
[2016-10-01] MEDS: ACETAMINOPHEN 325 MG TAB PO PRN ×2 (04:26→10:56)
[2016-10-01] MEDS: SODIUM CHLOR 0.9% 1000 ML INJ 1,000 ML IV SCH ×2 (05:14→16:58)
[2016-10-01] MEDS: INSULIN ASPART SUPPLEMENTAL SCALE SQ SCH ×4 (06:45→21:30)
[2016-10-01 07:53] LABS: HEMATOCRIT 21.6 % (39.0-51.0); MEAN CELL VOLUME 93.2 FL (80.0-100.0); MEAN CORPUSCULAR HEMOGLOBIN 33.4 PG (27.0-34.0); MEAN CORPUSCULAR HGB CONC 35.9 % (32.0-36.0); PLATELET COUNT 32 TH/MM3 (150-450); RED BLOOD COUNT 2.32 MIL/MM3 (4.50-5.90); RED CELL DISTRIBUTION WIDTH 14.9 % (11.6-17.2); WHITE BLOOD COUNT 0.2 TH/MM3 (4.0-11.0)
[2016-10-01 07:57] LABS: HEMO FLAGS AUTO DIFF
[2016-10-01 08:10] LABS: BICARBONATE 30.2 MEQ/L (21.0-32.0); POTASSIUM 3.9 MEQ/L (3.5-5.1)
[2016-10-01 08:29] LABS: BLASTS 36 % (0-0); POLYS (SEG NEUTROPHILS) 36 % (16-70); WBC DIFF SAMPLE 25
[2016-10-01 08:31] LABS: NEUTROPHIL # MANUAL DIFF 0.1 TH/MM3 (1.8-7.7)
[2016-10-01 08:32] LABS: PLATELET ESTIMATE SMEAR LOW (NORMAL); PLATELET MORPHOLOGY NORMAL (NORMAL); SCAN/DIFF FINAL DIFF MANUAL
[2016-10-01] MEDS: SODIUM CHLORIDE 10 ML FLUSH BID IVF SCH ×2 (09:00→21:32)
[2016-10-01] MEDS: amLODIPine BESYLATE 5 MG TAB PO SCH (09:00)
[2016-10-01] MEDS: LISINOPRIL 10 MG TAB PO SCH (09:00)
[2016-10-01] MEDS ORDERED: SODIUM CHLOR 0.9% 250 ML INJ 250 ML IV ONE (09:15)
--- NOTE | 2016-10-01 09:19 | PD.ONC.PN ---
Subjective Subjective Remarks Afebrile overnight. Pt resting in bed in no distress. He states he feels OK after chemo. No nausea. Objective Data Date Time Temp Pulse Resp B/P Pulse Ox O2 Delivery O2 Flow Rate FiO2 10/01/16 05:40 96.7 79 14 103/60 95 10/01/16 05:15 96.3 70 14 120/70 98 10/01/16 02:10 96.6 80 15 108/68 94 09/30/16 23:40 97.0 84 16 120/74 93 09/30/16 23:20 97.6 84 16 122/86 95 09/30/16 23:04 98.0 80 17 123/89 96 09/30/16 20:00 97.4 80 18 144/80 95 09/30/16 16:39 97.2 86 16 141/84 94 09/30/16 12:39 97.9 91 18 131/77 96 09/30/16 11:25 96.7 88 16 126/68 98 09/30/16 11:10 97.9 91 16 131/77 96 09/30/16 10:51 97.0 90 16 126/72 96 Result Diagram: 10/01/16 0642 10/01/16 0642 Laboratory Results Laboratory Tests Test 09/30/16 10/01/16 10/01/16 19:11 00:11 06:42 Blood Type O POSITIVE Antibody Screen NEGATIVE Crossmatch Irradiated/Leukocyte-Reduced RBC Blood Bank Comment White Blood Count 0.2 TH/MM3 Red Blood Count 2.32 MIL/MM3 Hemoglobin 7.8 GM/DL Hematocrit 21.6 % Mean Corpuscular Volume 93.2 FL Mean Corpuscular Hemoglobin 33.4 PG Mean Corpuscular Hemoglobin 35.9 % Concent Red Cell Distribution Width 14.9 % Platelet Count 32 TH/MM3 Mean Platelet Volume 8.0 FL Neutrophils (%) (Auto) % Lymphocytes (%) (Auto) % Monocytes (%) (Auto) % Eosinophils (%) (Auto) % Basophils (%) (Auto) % Neutrophils # (Auto) TH/MM3 Lymphocytes # (Auto) TH/MM3 Monocytes # (Auto) TH/MM3 Eosinophils # (Auto) TH/MM3 Basophils # (Auto) TH/MM3 CBC Comment AUTO DIFF Differential Total Cells 25 Counted Neutrophils % (Manual) 36 % Lymphocytes % 24 % Monocytes % 4 % Neutrophils # (Manual) 0.1 TH/MM3 Differential Comment FINAL DIFF MANUAL Blastocytes 36 % Platelet Estimate LOW Platelet Morphology Comment NORMAL Sodium Level 138 MEQ/L Potassium Level 3.9 MEQ/L Chloride Level 103 MEQ/L Carbon Dioxide Level 30.2 MEQ/L Anion Gap 5 MEQ/L Blood Urea Nitrogen 18 MG/DL Creatinine 0.49 MG/DL Estimat Glomerular Filtration 182 ML/MIN Rate Random Glucose 208 MG/DL Calcium Level 8.1 MG/DL Administered Medications Medications (Trade) Dose Ordered Sig/Génesis Route PRN Reason Start Time Stop Time Status Last Admin Dose Admin Acetaminophen (Tylenol) 650 mg Q4H PRN PO PAIN SCALE 0-3 OR TEMP> 100.5F 09/25/16 08:45 09/27/16 05:56 Oxycodone HCl 10 mg 10 mg Q3H PRN PO PAIN SCALE 8 TO 10 09/25/16 08:45 09/30/16 12:12 Sodium Chloride (NS 1000 ml Inj) 1,000 ml @ 100 mls/hr Q10H IV 09/25/16 10:15 10/01/16 05:14 Allopurinol (Zyloprim) 300 mg DAILY PO 09/25/16 10:30 10/02/16 07:49 09/30/16 09:22 Diazepam (Valium) 10 mg HS PO 09/25/16 21:00 09/30/16 22:07 Sertraline HCl (Zoloft) 50 mg DAILY PO 09/26/16 09:00 09/30/16 09:22 Oxycodone HCl (Roxicodone) 5 mg QID PO 09/25/16 13:00 09/30/16 22:09 Sodium Chloride 2 ml 2 ml BID IVF 09/25/16 21:00 09/30/16 09:22 Ondansetron HCl/ Dextrose (Zofran Inj/D5W Inj) 54 ml @ 216 mls/hr Q8H PRN IV PUSH NAUSEA OR VOMITING 09/25/16 10:30 09/27/16 02:13 Atenolol (Tenormin) 100 mg DAILY@2100 PO 09/25/16 21:00 09/30/16 22:07 Docusate Sodium 100 mg 100 mg TID PO 09/25/16 18:00 09/30/16 18:05 Sodium Chloride 250 ml @ 100 mls/hr Q24H IV 09/26/16 13:00 09/30/16 13:26 Sodium Chloride (NS 250 ml Inj) 250 ml @ 100 mls/hr Q24H IV 09/26/16 20:00 09/30/16 18:03 Amphetamine/ Dextroamphetamine (Adderall Xr) 15 mg DAILY PO 09/27/16 09:00 09/30/16 09:22 Lisinopril (Prinivil) 10 mg DAILY PO 09/28/16 09:00 09/30/16 09:22 Fluconazole (Diflucan) 200 mg DAILY PO 09/27/16 13:00 09/30/16 09:22 Amlodipine Besylate (Norvasc) 5 mg DAILY PO 09/29/16 09:00 09/30/16 09:22 Acetaminophen (Tylenol) 650 mg Q4H PRN PO FOR BLOOD PRODUCTS 09/30/16 22:00 10/01/16 04:26 Diphenhydramine HCl (Benadryl) 25 mg Q4H PRN PO FOR BLOOD PRODUCTS 09/30/16 22:00 10/01/16 04:25 Objective Remarks GENERAL: Overweight middle aged male. Asleep on approach. Awakens easily to verbal stimuli. SKIN: Warm and dry. HEAD: Normocephalic. EYES: No injection or drainage. NECK: Supple, trachea midline. CARDIOVASCULAR: Regular rate and rhythm without murmurs. RESPIRATORY: Breath sounds equal bilaterally. No accessory muscle use. GASTROINTESTINAL: Abdomen soft, non-tender, nondistended. EXTREMITIES: No cyanosis, or edema. MUSCULOSKELETAL: Adequate muscle tone. NEUROLOGICAL: A&Ox3. Moving all extremities. Normal speech. Assessment/Plan Problem List: (1) AML (acute myeloid leukemia) Status: Acute Plan: 10/01: Finished chemotherapy yesterday. Tolerated well. 1 unit irradiated PRBC's to be transfused today. Continue to closely monitor blood counts. 09/30: D5. last day of chemotherapy. will give 1 unit platelets. 09/29: D4. continue chemotherapy. no transfusion. 09/28: D3. 09/27: D2 09/26: Start on CLAG-M chemotherapy for relapsed AML. Received Neupogen yesterday. He spiked a fever this afternoon of 101.3. BC, UA, and CXR ordered. Will start pt on Cefepime. Await BC results. -- He has been getting CBC q2 weeks. On 09/18 it was noted that he had a white count at 11k and a platelet count of 76k. Blasts were at 38%. He was brought in to the clinic on 09/24 for a bone marrow biopsy. A CBC was done and showed a white count of 63.7, Hgb 12.2, and platelet count was 33K. The blasts were at 73 %. Decision was made at that time to admit for salvage chemo. History: 11/04/16: AML Diagnosis made. 46XY, +NPM1 mutation detected, FLT3 negative-- indicates favorable prognosis. 11/05-11/28: Initial induction with MELL-C and idarubicin (7+3). STAT Leukapheresis due to leukostasis. On D25, repeat bone marrow showed residual leukemia. 12/06-12/27: Re-induction with FLANG chemotherapy. Repeat bone marrow biopsy negative for residual AML. Patient in Complete Remission 01/06-01/10: C1 consolidation chemotherapy with Mell-C. 02/17-02/21: C2 consolidation chemotherapy with MELL-C. 03/25-03/30: C3 consolidation chemotherapy with MELL-C 04/28-05/02: C4 consolidation chemo with MELL-C (2) Hypertension Status: Acute Plan: -- Continue amlodipine, lisinopril -- BP controlled (3) Diabetes Status: Acute Plan: --on SSI Novolog (4) Fever Status: Acute Plan: -- BC no growth -- on prophylactic Levaquin -- CXR negative (5) DVT prophylaxis Status: Acute Plan: -- Thrombocytopenia; will hold off on chemical prophylaxis at this time. (6) Constipation Status: Acute Plan: --on Colace schedule --PRN laxative --PRN Relistor Assessment 46 y/o male admitted for salvage chemotherapy for relapsed AML. Attending Statement no new c/o feels ok finish chemo last night. No tumor lysis . D/C labs for tumor lysis. he has two allo donars. d/w pt and . The exam, history, and the medical decision-making described in the above note were completed with the assistance of the mid-level provider. I reviewed and agree with the findings presented. I attest that I had a [id number] encounter with the patient on the same day, and personally performed and documented my assessment and findings in the medical record. Problem Qualifiers (1) Diabetes: Qualified Code: E11.9 - Type 2 diabetes mellitus without complication, without long-term current use of insulin (2) Fever: Qualified Code: R50.9 - Fever, unspecified fever cause (3) Constipation: Qualified Code: K59.00 - Constipation, unspecified constipation type Valarie Lopez Oct 01, 2016 09:19 Alexandra Olea MD Oct 01, 2016 19:06
[2016-10-01] MEDS: DOCUSATE SODIUM 100 MG CAP PO SCH ×3 (09:30→17:00)
[2016-10-01] MEDS: DEXTROAMPHETAMINE/AMPHETAMINE XR 15 MG CAP PO SCH (09:30)
[2016-10-01] MEDS: FLUCONAZOLE 200 MG TAB PO SCH (09:31)
[2016-10-01] MEDS: SERTRALINE HCL 50 MG TAB PO SCH (09:31)
[2016-10-01] MEDS: ALLOPURINOL 300 MG TAB PO SCH (09:31)
[2016-10-01 10:31] LABS: MAGNESIUM 2.3 MG/DL (1.5-2.5)
[2016-10-01] MEDS: LEVOFLOXACIN 500 MG TAB PO SCH (10:57)
[2016-10-01] MEDS: SODIUM CHLOR 0.9% 250 ML INJ 250 ML IV SCH ×2 (11:35→20:00)
[2016-10-01] MEDS: ATENOLOL 100 MG TAB PO SCH (21:31)
[2016-10-01] MEDS: DIAZEPAM 10 MG TAB PO SCH (23:08)
[2016-10-02] VITALS (9 sets, daily range): BP systolic 103–151; BP diastolic 64–93; PULSE 70–92; RESP 17–20; TEMP 96.1–98.5; O2SAT 94–98
[2016-10-02] MEDS: SODIUM CHLOR 0.9% 1000 ML INJ 1,000 ML IV SCH ×2 (02:47→12:15)
[2016-10-02 05:50] LABS: HEMATOCRIT 23.1 % (39.0-51.0); MEAN CELL VOLUME 91.9 FL (80.0-100.0); MEAN CORPUSCULAR HEMOGLOBIN 31.3 PG (27.0-34.0); MEAN CORPUSCULAR HGB CONC 34.1 % (32.0-36.0); RED BLOOD COUNT 2.51 MIL/MM3 (4.50-5.90); WHITE BLOOD COUNT 0.1 TH/MM3 (4.0-11.0)
[2016-10-02 06:10] LABS: HEMO FLAGS AUTO DIFF
[2016-10-02 06:12] LABS: BICARBONATE 32.6 MEQ/L (21.0-32.0); POTASSIUM 3.8 MEQ/L (3.5-5.1)
[2016-10-02 06:13] LABS: PLATELET COUNT 18 TH/MM3 (150-450)
[2016-10-02] MEDS: INSULIN ASPART SUPPLEMENTAL SCALE SQ SCH ×4 (06:17→21:06)
[2016-10-02 07:19] LABS: BLASTS 10 % (0-0); WBC DIFF SAMPLE 10
[2016-10-02 07:20] LABS: PLATELET ESTIMATE SMEAR RARE (NORMAL); PLATELET MORPHOLOGY NORMAL (NORMAL); SCAN/DIFF FINAL DIFF MANUAL
[2016-10-02] MEDS: amLODIPine BESYLATE 5 MG TAB PO SCH (09:00)
[2016-10-02] MEDS: LISINOPRIL 10 MG TAB PO SCH (09:00)
[2016-10-02] MEDS: SODIUM CHLORIDE 10 ML FLUSH BID IVF SCH ×2 (09:00→21:02)
[2016-10-02] MEDS ORDERED: SODIUM CHLOR 0.9% 250 ML INJ 250 ML IV ONE (10:30)
[2016-10-02] MEDS: DEXTROAMPHETAMINE/AMPHETAMINE XR 15 MG CAP PO SCH (10:40)
[2016-10-02] MEDS: FLUCONAZOLE 200 MG TAB PO SCH (10:41)
[2016-10-02] MEDS: DOCUSATE SODIUM 100 MG CAP PO SCH ×3 (10:41→17:02)
[2016-10-02] MEDS: SERTRALINE HCL 50 MG TAB PO SCH (10:41)
[2016-10-02] MEDS: LEVOFLOXACIN 500 MG TAB PO SCH (10:46)
[2016-10-02] MEDS ORDERED: FUROSEMIDE 20 MG/2 ML VIAL IV PUSH ONE (11:00)
--- NOTE | 2016-10-02 11:21 | PD.ONC.PN ---
Subjective Subjective Remarks Afebrile overnight. Pt states he did not sleep too good last night. He states he did not want to take his oxycodone and he feels like he might have been withdrawing from this. However, he states today he feels OK. No pain. No nausea. Objective Data Date Time Temp Pulse Resp B/P Pulse Ox O2 Delivery O2 Flow Rate FiO2 10/02/16 07:50 96.5 72 20 103/64 94 10/02/16 04:00 96.1 70 18 113/76 98 10/02/16 00:00 97.7 85 17 122/71 96 10/01/16 20:00 98.0 88 18 122/67 95 10/01/16 15:50 97.3 80 20 120/69 93 10/01/16 11:56 97.4 88 18 128/73 97 10/01/16 11:50 97.3 82 20 140/82 97 10/01/16 11:40 97.0 87 18 123/69 97 Result Diagram: 10/02/1620 10/02/16 0520 Laboratory Results Laboratory Tests Test 10/02/16 05:20 White Blood Count 0.1 TH/MM3 Red Blood Count 2.51 MIL/MM3 Hemoglobin 7.9 GM/DL Hematocrit 23.1 % Mean Corpuscular Volume 91.9 FL Mean Corpuscular Hemoglobin 31.3 PG Mean Corpuscular Hemoglobin 34.1 % Concent Red Cell Distribution Width 16.0 % Platelet Count 18 TH/MM3 Mean Platelet Volume 7.4 FL Neutrophils (%) (Auto) % Lymphocytes (%) (Auto) % Monocytes (%) (Auto) % Eosinophils (%) (Auto) % Basophils (%) (Auto) % Neutrophils # (Auto) TH/MM3 Lymphocytes # (Auto) TH/MM3 Monocytes # (Auto) TH/MM3 Eosinophils # (Auto) TH/MM3 Basophils # (Auto) TH/MM3 CBC Comment AUTO DIFF Differential Total Cells 10 Counted Lymphocytes % 90 % Neutrophils # (Manual) 0.0 TH/MM3 Differential Comment FINAL DIFF MANUAL Blastocytes 10 % Platelet Estimate RARE Platelet Morphology Comment NORMAL Sodium Level 138 MEQ/L Potassium Level 3.8 MEQ/L Chloride Level 102 MEQ/L Carbon Dioxide Level 32.6 MEQ/L Anion Gap 3 MEQ/L Blood Urea Nitrogen 15 MG/DL Creatinine 0.50 MG/DL Estimat Glomerular Filtration 177 ML/MIN Rate Random Glucose 209 MG/DL Calcium Level 7.8 MG/DL Administered Medications Medications (Trade) Dose Ordered Sig/Génesis Route PRN Reason Start Time Stop Time Status Last Admin Dose Admin Acetaminophen (Tylenol) 650 mg Q4H PRN PO PAIN SCALE 0-3 OR TEMP> 100.5F 09/25/16 08:45 09/27/16 05:56 Oxycodone HCl 10 mg 10 mg Q3H PRN PO PAIN SCALE 8 TO 10 09/25/16 08:45 09/30/16 12:12 Sodium Chloride (NS 1000 ml Inj) 1,000 ml @ 100 mls/hr Q10H IV 09/25/16 10:15 10/02/16 02:47 Diazepam (Valium) 10 mg HS PO 09/25/16 21:00 10/01/16 23:08 Sertraline HCl (Zoloft) 50 mg DAILY PO 09/26/16 09:00 10/02/16 10:41 Oxycodone HCl (Roxicodone) 5 mg QID PO 09/25/16 13:00 10/01/16 13:49 Sodium Chloride 2 ml 2 ml BID IVF 09/25/16 21:00 10/01/16 21:32 Ondansetron HCl/ Dextrose (Zofran Inj/D5W Inj) 54 ml @ 216 mls/hr Q8H PRN IV PUSH NAUSEA OR VOMITING 09/25/16 10:30 09/27/16 02:13 Atenolol (Tenormin) 100 mg DAILY@2100 PO 09/25/16 21:00 10/01/16 21:31 Docusate Sodium 100 mg 100 mg TID PO 09/25/16 18:00 10/02/16 10:41 Sodium Chloride 250 ml @ 100 mls/hr Q24H IV 09/26/16 13:00 09/30/16 13:26 Sodium Chloride (NS 250 ml Inj) 250 ml @ 100 mls/hr Q24H IV 09/26/16 20:00 09/30/16 18:03 Amphetamine/ Dextroamphetamine (Adderall Xr) 15 mg DAILY PO 09/27/16 09:00 10/02/16 10:40 Lisinopril (Prinivil) 10 mg DAILY PO 09/28/16 09:00 09/30/16 09:22 Fluconazole (Diflucan) 200 mg DAILY PO 09/27/16 13:00 10/02/16 10:41 Amlodipine Besylate (Norvasc) 5 mg DAILY PO 09/29/16 09:00 09/30/16 09:22 Levofloxacin (Levaquin) 500 mg DAILY@11 PO 10/01/16 11:00 10/02/16 10:46 Acetaminophen (Tylenol) 650 mg Q4H PRN PO FOR BLOOD PRODUCTS 09/30/16 22:00 10/01/16 10:56 Diphenhydramine HCl (Benadryl) 25 mg Q4H PRN PO FOR BLOOD PRODUCTS 09/30/16 22:00 10/01/16 10:57 Objective Remarks GENERAL: Overweight middle aged male. Sitting up on bedside talking to RN. SKIN: Warm and dry. HEAD: Normocephalic. EYES: No injection or drainage. NECK: Supple, trachea midline. CARDIOVASCULAR: Regular rate and rhythm without murmurs. RESPIRATORY: Breath sounds equal bilaterally. No accessory muscle use. GASTROINTESTINAL: Abdomen soft, non-tender, nondistended. EXTREMITIES: No cyanosis. Mild generalized pedal edema. MUSCULOSKELETAL: Adequate muscle tone. NEUROLOGICAL: A&Ox3. Moving all extremities. Normal speech. Assessment/Plan Problem List: (1) AML (acute myeloid leukemia) Status: Acute Plan: 10/02: Will give 1 unit PRBC's, platelets today. Plan for repeat BMB on 10/10. 10/01: Finished chemotherapy yesterday. Tolerated well. 1 unit irradiated PRBC's to be transfused today. Continue to closely monitor blood counts. 09/30: D5. last day of chemotherapy. will give 1 unit platelets. 09/29: D4. continue chemotherapy. no transfusion. 09/28: D3. 09/27: D2 09/26: Start on CLAG-M chemotherapy for relapsed AML. Received Neupogen yesterday. He spiked a fever this afternoon of 101.3. BC, UA, and CXR ordered. Will start pt on Cefepime. Await BC results. -- He has been getting CBC q2 weeks. On 09/18 it was noted that he had a white count at 11k and a platelet count of 76k. Blasts were at 38%. He was brought in to the clinic on 3/22 for a bone marrow biopsy. A CBC was done and showed a white count of 63.7, Hgb 12.2, and platelet count was 33K. The blasts were at 73 %. Decision was made at that time to admit for salvage chemo. History: 11/04/16: AML Diagnosis made. 46XY, +NPM1 mutation detected, FLT3 negative-- indicates favorable prognosis. 11/05-11/28: Initial induction with MELL-C and idarubicin (7+3). STAT Leukapheresis due to leukostasis. On D25, repeat bone marrow showed residual leukemia. 12/06-12/27: Re-induction with FLANG chemotherapy. Repeat bone marrow biopsy negative for residual AML. Patient in Complete Remission 01/06-01/10: C1 consolidation chemotherapy with Mell-C. 02/17-02/21: C2 consolidation chemotherapy with MELL-C. 03/25-03/30: C3 consolidation chemotherapy with MELL-C 04/28-05/02: C4 consolidation chemo with MELL-C (2) Hypertension Status: Acute Plan: -- Continue amlodipine, lisinopril -- BP controlled (3) Diabetes Status: Acute Plan: --on SSI Novolog (4) Fever Status: Acute Plan: -- BC no growth -- on prophylactic Levaquin -- CXR negative (5) DVT prophylaxis Status: Acute Plan: -- Thrombocytopenia; will hold off on chemical prophylaxis at this time. (6) Constipation Status: Acute Plan: --on Colace schedule --PRN laxative --PRN Relistor Assessment 46 y/o male admitted for salvage chemotherapy for relapsed AML. Attending Statement no N/V/Fever Feels fine. Repeat BM bx next week. monitor cbc and give tx support. Problem Qualifiers (1) Diabetes: Qualified Code: E11.9 - Type 2 diabetes mellitus without complication, without long-term current use of insulin (2) Fever: Qualified Code: R50.9 - Fever, unspecified fever cause (3) Constipation: Qualified Code: K59.00 - Constipation, unspecified constipation type Valarie Lopez Oct 02, 2016 11:21 Alexandra Olea MD Oct 03, 2016 01:07
[2016-10-02] MEDS: ACETAMINOPHEN 325 MG TAB PO PRN (11:50)
[2016-10-02] MEDS: diphenhydrAMINE HCL 25 MG CAP PO PRN (11:50)
[2016-10-02] MEDS: SODIUM CHLOR 0.9% 250 ML INJ 250 ML IV SCH (13:00)
[2016-10-02] MEDS: ATENOLOL 100 MG TAB PO SCH (21:00)
[2016-10-02] MEDS: DIAZEPAM 10 MG TAB PO SCH (23:38)
[2016-10-03] VITALS: BP 129/85; PULSE 82; RESP 18; TEMP 96; O2SAT 93
[2016-10-03 05:48] VITALS: BP 134/85; PULSE 76; RESP 16; TEMP 97.1; O2SAT 96
[2016-10-03] MEDS: INSULIN ASPART SUPPLEMENTAL SCALE SQ SCH ×4 (06:12→22:08)
[2016-10-03 06:25] LABS: BICARBONATE 32.8 MEQ/L (21.0-32.0); POTASSIUM 3.8 MEQ/L (3.5-5.1)
[2016-10-03 08:00] VITALS: BP 128/72; PULSE 77; RESP 18; TEMP 96.9; O2SAT 98
[2016-10-03] MEDS: DEXTROAMPHETAMINE/AMPHETAMINE XR 15 MG CAP PO SCH (09:58)
[2016-10-03] MEDS: FLUCONAZOLE 200 MG TAB PO SCH (09:59)
[2016-10-03] MEDS: SERTRALINE HCL 50 MG TAB PO SCH (09:59)
[2016-10-03] MEDS: DOCUSATE SODIUM 100 MG CAP PO SCH ×3 (09:59→17:52)
[2016-10-03] MEDS: SODIUM CHLOR 0.9% 1000 ML INJ 1,000 ML IV SCH (10:18)
[2016-10-03] MEDS: SODIUM CHLORIDE 10 ML FLUSH BID IVF SCH ×2 (10:18→22:02)
[2016-10-03 10:21] LABS: HEMATOCRIT 29.3 % (39.0-51.0); MEAN CELL VOLUME 88.2 FL (80.0-100.0); MEAN CORPUSCULAR HEMOGLOBIN 31.8 PG (27.0-34.0); PLATELET COUNT 24 TH/MM3 (150-450); RED BLOOD COUNT 3.32 MIL/MM3 (4.50-5.90); RED CELL DISTRIBUTION WIDTH 15.9 % (11.6-17.2); WHITE BLOOD COUNT 0.1 TH/MM3 (4.0-11.0)
[2016-10-03 10:25] LABS: HEMO FLAGS AUTO DIFF
[2016-10-03 11:11] LABS: BLASTS 4 % (0-0); EOSINOPHILS 12 % (0-4); WBC DIFF SAMPLE 25
[2016-10-03 11:12] LABS: PLATELET ESTIMATE SMEAR LOW (NORMAL); PLATELET MORPHOLOGY NORMAL (NORMAL); SCAN/DIFF FINAL DIFF MANUAL
[2016-10-03 12:00] VITALS: BP 137/89; PULSE 75; RESP 18; TEMP 96.1; O2SAT 97
[2016-10-03] MEDS: SODIUM CHLOR 0.9% 250 ML INJ 250 ML IV SCH ×3 (12:41→20:00)
[2016-10-03] MEDS: LEVOFLOXACIN 500 MG TAB PO SCH (13:22)
--- NOTE | 2016-10-03 14:04 | PD.ONC.PN ---
Subjective Subjective Remarks Afebrile overnight. Patient denies acute complaints. No fever. No bleeding. Ate breakfast this AM. Had BM yesterday. No diarrhea. Objective Data Date Time Temp Pulse Resp B/P Pulse Ox O2 Delivery O2 Flow Rate FiO2 10/03/16 08:00 96.9 77 18 128/72 98 10/03/16 05:48 97.1 76 16 134/85 96 10/03/16 00:00 96.0 82 18 129/85 93 10/02/16 20:00 96.7 86 18 150/88 98 10/02/16 15:50 98.5 81 20 147/93 98 Result Diagram: 10/03/16 1001 10/03/16 0545 Laboratory Results Laboratory Tests Test 10/03/16 10/03/16 05:45 10:01 Sodium Level 139 MEQ/L Potassium Level 3.8 MEQ/L Chloride Level 101 MEQ/L Carbon Dioxide Level 32.8 MEQ/L Anion Gap 5 MEQ/L Blood Urea Nitrogen 11 MG/DL Creatinine 0.41 MG/DL Estimat Glomerular Filtration 223 ML/MIN Rate Random Glucose 132 MG/DL Calcium Level 8.3 MG/DL White Blood Count 0.1 TH/MM3 Red Blood Count 3.32 MIL/MM3 Hemoglobin 10.5 GM/DL Hematocrit 29.3 % Mean Corpuscular Volume 88.2 FL Mean Corpuscular Hemoglobin 31.8 PG Mean Corpuscular Hemoglobin 36.0 % Concent Red Cell Distribution Width 15.9 % Platelet Count 24 TH/MM3 Mean Platelet Volume 7.2 FL Neutrophils (%) (Auto) % Lymphocytes (%) (Auto) % Monocytes (%) (Auto) % Eosinophils (%) (Auto) % Basophils (%) (Auto) % Neutrophils # (Auto) TH/MM3 Lymphocytes # (Auto) TH/MM3 Monocytes # (Auto) TH/MM3 Eosinophils # (Auto) TH/MM3 Basophils # (Auto) TH/MM3 CBC Comment AUTO DIFF Differential Total Cells 25 Counted Lymphocytes % 84 % Eosinophils % 12 % Neutrophils # (Manual) 0.0 TH/MM3 Differential Comment FINAL DIFF MANUAL Blastocytes 4 % Platelet Estimate LOW Platelet Morphology Comment NORMAL Red Cell Morphology Comment NORMAL Administered Medications Medications (Trade) Dose Ordered Sig/Génesis Route PRN Reason Start Time Stop Time Status Last Admin Dose Admin Acetaminophen (Tylenol) 650 mg Q4H PRN PO PAIN SCALE 0-3 OR TEMP> 100.5F 09/25/16 08:45 09/27/16 05:56 Oxycodone HCl 10 mg 10 mg Q3H PRN PO PAIN SCALE 8 TO 10 09/25/16 08:45 09/30/16 12:12 Sodium Chloride (NS 1000 ml Inj) 1,000 ml @ 100 mls/hr Q10H IV 09/25/16 10:15 10/03/16 10:18 Diazepam (Valium) 10 mg HS PO 09/25/16 21:00 10/02/16 23:38 Sertraline HCl (Zoloft) 50 mg DAILY PO 09/26/16 09:00 10/03/16 09:59 Oxycodone HCl (Roxicodone) 5 mg QID PO 09/25/16 13:00 10/01/16 13:49 Sodium Chloride 2 ml 2 ml BID IVF 09/25/16 21:00 10/02/16 21:02 Ondansetron HCl/ Dextrose (Zofran Inj/D5W Inj) 54 ml @ 216 mls/hr Q8H PRN IV PUSH NAUSEA OR VOMITING 09/25/16 10:30 09/27/16 02:13 Atenolol (Tenormin) 100 mg DAILY@2100 PO 09/25/16 21:00 10/02/16 21:00 Docusate Sodium 100 mg 100 mg TID PO 09/25/16 18:00 10/02/16 17:02 Sodium Chloride 250 ml @ 100 mls/hr Q24H IV 09/26/16 13:00 09/30/16 13:26 Sodium Chloride (NS 250 ml Inj) 250 ml @ 100 mls/hr Q24H IV 09/26/16 20:00 09/30/16 18:03 Amphetamine/ Dextroamphetamine (Adderall Xr) 15 mg DAILY PO 09/27/16 09:00 10/03/16 09:58 Lisinopril (Prinivil) 10 mg DAILY PO 09/28/16 09:00 Hold 09/30/16 09:22 Fluconazole (Diflucan) 200 mg DAILY PO 09/27/16 13:00 10/03/16 09:59 Amlodipine Besylate (Norvasc) 5 mg DAILY PO 09/29/16 09:00 Hold 09/30/16 09:22 Levofloxacin (Levaquin) 500 mg DAILY@11 PO 10/01/16 11:00 10/03/16 13:22 Acetaminophen (Tylenol) 650 mg Q4H PRN PO FOR BLOOD PRODUCTS 09/30/16 22:00 10/02/16 11:50 Diphenhydramine HCl (Benadryl) 25 mg Q4H PRN PO FOR BLOOD PRODUCTS 09/30/16 22:00 10/02/16 11:50 Objective Remarks GENERAL: Middle aged male, well dressed sitting up in bed in nad. SKIN: Warm and dry. port in place, right chest wall, 1cm area of hyperpigmentation just lateral to port. HEAD: Normocephalic. EYES: No injection or drainage. NECK: Supple, trachea midline. CARDIOVASCULAR: Regular rate and rhythm RESPIRATORY: Breath sounds equal bilaterally. No accessory muscle use. GASTROINTESTINAL: Abdomen soft, non-tender, nondistended. EXTREMITIES: No cyanosis. no edema. NEUROLOGICAL: No obvious focal deficit. Awake, alert, and oriented x3. Assessment/Plan Problem List: (1) AML (acute myeloid leukemia) Status: Acute Plan: 10/03: D8. no transfusion. monitor for fever 10/02: Will give 1 unit PRBC's, platelets today. Plan for repeat BMB on 10/10. 10/01: Finished chemotherapy yesterday. Tolerated well. 1 unit irradiated PRBC's to be transfused today. Continue to closely monitor blood counts. 09/30: D5. last day of chemotherapy. will give 1 unit platelets. 09/29: D4. continue chemotherapy. no transfusion. 09/28: D3. 09/27: D2 09/26: Start on CLAG-M chemotherapy for relapsed AML. Received Neupogen yesterday. He spiked a fever this afternoon of 101.3. BC, UA, and CXR ordered. Will start pt on Cefepime. Await BC results. -- He has been getting CBC q2 weeks. On 09/18 it was noted that he had a white count at 11k and a platelet count of 76k. Blasts were at 38%. He was brought in to the clinic on 09/24 for a bone marrow biopsy. A CBC was done and showed a white count of 63.7, Hgb 12.2, and platelet count was 33K. The blasts were at 73 %. Decision was made at that time to admit for salvage chemo. History: 11/04/16: AML Diagnosis made. 46XY, +NPM1 mutation detected, FLT3 negative-- indicates favorable prognosis. 11/05-11/28: Initial induction with MELL-C and idarubicin (7+3). STAT Leukapheresis due to leukostasis. On D25, repeat bone marrow showed residual leukemia. 12/06-12/27: Re-induction with FLANG chemotherapy. Repeat bone marrow biopsy negative for residual AML. Patient in Complete Remission 01/06-01/10: C1 consolidation chemotherapy with Mell-C. 02/17-02/21: C2 consolidation chemotherapy with MELL-C. 03/25-03/30: C3 consolidation chemotherapy with MELL-C 04/28-05/02: C4 consolidation chemo with MELL-C (2) Hypertension Status: Acute Plan: -- Hold amlodipine, lisinopril, continue atenolol (3) Diabetes Status: Acute Plan: --on SSI Novolog (4) Fever Status: Acute Plan: -- BC no growth -- on prophylactic Levaquin -- CXR negative (5) DVT prophylaxis Status: Acute Plan: -- Thrombocytopenia; will hold off on chemical prophylaxis at this time. (6) Constipation Status: Acute Plan: --on Colace schedule --PRN laxative --PRN Relistor Assessment 46 y/o male admitted for salvage chemotherapy for relapsed AML. Attending Statement no c/o offer. NO N/V day 8 of salvage chemo. continue present plan d/w pt and . The exam, history, and the medical decision-making described in the above note were completed with the assistance of the mid-level provider. I reviewed and agree with the findings presented. I attest that I had a [id number] encounter with the patient on the same day, and personally performed and documented my assessment and findings in the medical record. Problem Qualifiers (1) Diabetes: Qualified Code: E11.9 - Type 2 diabetes mellitus without complication, without long-term current use of insulin (2) Fever: Qualified Code: R50.9 - Fever, unspecified fever cause (3) Constipation: Qualified Code: K59.00 - Constipation, unspecified constipation type Janet Holm Oct 03, 2016 14:04 Alexandra Olea MD Oct 04, 2016 22:53
[2016-10-03 16:00] VITALS: BP 127/91; PULSE 82; RESP 16; TEMP 96.8; O2SAT 99
[2016-10-03 18:08] LABS: C. DIFF EPI 027 PRESUMPTIVE NEGATIVE (NEGATIVE); C. DIFF TOXIN PCR NEGATIVE (NEGATIVE)
[2016-10-03 20:00] VITALS: BP 155/92; PULSE 91; RESP 18; TEMP 97; O2SAT 98
[2016-10-03] MEDS: DIAZEPAM 10 MG TAB PO SCH (22:01)
[2016-10-03] MEDS: ATENOLOL 100 MG TAB PO SCH (22:01)
[2016-10-04] VITALS: BP 156/97; PULSE 78; RESP 19; TEMP 96.3; O2SAT 100
[2016-10-04 04:00] VITALS: BP 125/78; PULSE 78; RESP 18; TEMP 97.8; O2SAT 97
[2016-10-04 06:00] LABS: HEMATOCRIT 26.1 % (39.0-51.0); MEAN CELL VOLUME 87.5 FL (80.0-100.0); MEAN CORPUSCULAR HEMOGLOBIN 31.5 PG (27.0-34.0); PLATELET COUNT 21 TH/MM3 (150-450); RED BLOOD COUNT 2.99 MIL/MM3 (4.50-5.90); RED CELL DISTRIBUTION WIDTH 15.7 % (11.6-17.2); WHITE BLOOD COUNT 0.2 TH/MM3 (4.0-11.0)
[2016-10-04 06:26] LABS: HEMO FLAGS AUTO DIFF
[2016-10-04 06:32] LABS: ALT (GPT) 15 U/L (12-78); ANION GAP 7 MEQ/L (5-15); AST (GOT) 9 U/L (15-37); BICARBONATE 28.3 MEQ/L (21.0-32.0); BLOOD UREA NITROGEN 10 MG/DL (7-18); CHLORIDE 104 MEQ/L (98-107); GLOMERULAR FILTRATION RATE 211 ML/MIN (>89); MAGNESIUM 2.3 MG/DL (1.5-2.5); POTASSIUM 3.7 MEQ/L (3.5-5.1); SODIUM (NA) 139 MEQ/L (136-145)
[2016-10-04 06:34] LABS: ALKALINE PHOSPHATASE 63 U/L (45-117); LDH SERUM 189 U/L (87-241); TOTAL BILIRUBIN ADULT 1.3 MG/DL (0.2-1.0)
[2016-10-04] MEDS: INSULIN ASPART SUPPLEMENTAL SCALE SQ SCH ×4 (06:50→20:49)
[2016-10-04 08:00] VITALS: BP 135/90; PULSE 73; RESP 16; TEMP 98.6; O2SAT 99
[2016-10-04] MEDS: SERTRALINE HCL 50 MG TAB PO SCH (08:34)
[2016-10-04] MEDS: FLUCONAZOLE 200 MG TAB PO SCH (08:34)
[2016-10-04] MEDS: DEXTROAMPHETAMINE/AMPHETAMINE XR 15 MG CAP PO SCH (08:35)
[2016-10-04] MEDS: DOCUSATE SODIUM 100 MG CAP PO SCH ×3 (08:35→18:03)
[2016-10-04] MEDS: SODIUM CHLORIDE 10 ML FLUSH BID IVF SCH ×2 (08:47→20:44)
[2016-10-04 08:48] LABS: INDIRECT BILIRUBIN 1.1 MG/DL (0.0-0.8)
[2016-10-04 09:33] LABS: POLYS (SEG NEUTROPHILS) 4 % (16-70); WBC DIFF SAMPLE 25
[2016-10-04 09:35] LABS: PLATELET ESTIMATE SMEAR LOW (NORMAL); PLATELET MORPHOLOGY NORMAL (NORMAL); SCAN/DIFF FINAL DIFF MANUAL
--- NOTE | 2016-10-04 09:43 | PD.ONC.PN ---
Subjective Subjective Remarks Afebrile overnight. Patient doing well with no complaints. Only one loose stool yesterday. Objective Data Date Time Temp Pulse Resp B/P Pulse Ox O2 Delivery O2 Flow Rate FiO2 10/04/16 04:00 97.8 78 18 125/78 97 10/04/16 00:00 96.3 78 19 156/97 100 10/03/16 20:00 97.0 91 18 155/92 98 10/03/16 16:00 96.8 82 16 127/91 99 10/03/16 12:00 96.1 75 18 137/89 97 10/04/16 10/04/16 10/04/16 07:00 15:00 23:00 Intake Total 240 ml Balance 240 ml Result Diagram: 10/04/16 0530 10/04/16 0530 Laboratory Results Laboratory Tests Test 10/03/16 10/03/16 10/04/16 10:01 15:50 05:30 White Blood Count 0.1 TH/MM3 0.2 TH/MM3 Red Blood Count 3.32 MIL/MM3 2.99 MIL/MM3 Hemoglobin 10.5 GM/DL 9.4 GM/DL Hematocrit 29.3 % 26.1 % Mean Corpuscular Volume 88.2 FL 87.5 FL Mean Corpuscular Hemoglobin 31.8 PG 31.5 PG Mean Corpuscular Hemoglobin 36.0 % 36.0 % Concent Red Cell Distribution Width 15.9 % 15.7 % Platelet Count 24 TH/MM3 21 TH/MM3 Mean Platelet Volume 7.2 FL 7.3 FL Neutrophils (%) (Auto) % % Lymphocytes (%) (Auto) % % Monocytes (%) (Auto) % % Eosinophils (%) (Auto) % % Basophils (%) (Auto) % % Neutrophils # (Auto) TH/MM3 TH/MM3 Lymphocytes # (Auto) TH/MM3 TH/MM3 Monocytes # (Auto) TH/MM3 TH/MM3 Eosinophils # (Auto) TH/MM3 TH/MM3 Basophils # (Auto) TH/MM3 TH/MM3 CBC Comment AUTO DIFF AUTO DIFF Differential Total Cells 25 25 Counted Lymphocytes % 84 % 96 % Eosinophils % 12 % Neutrophils # (Manual) 0.0 TH/MM3 0.0 TH/MM3 Differential Comment FINAL DIFF FINAL DIFF MANUAL MANUAL Blastocytes 4 % Platelet Estimate LOW LOW Platelet Morphology Comment NORMAL NORMAL Red Cell Morphology Comment NORMAL Stool C. difficile Toxin (PCR) NEGATIVE Stl C. difficile Toxin PRESUMPTIVE Epiderm 027 NEGATIVE Neutrophils % (Manual) 4 % Sodium Level 139 MEQ/L Potassium Level 3.7 MEQ/L Chloride Level 104 MEQ/L Carbon Dioxide Level 28.3 MEQ/L Anion Gap 7 MEQ/L Blood Urea Nitrogen 10 MG/DL Creatinine 0.43 MG/DL Estimat Glomerular Filtration 211 ML/MIN Rate Random Glucose 142 MG/DL Calcium Level 8.7 MG/DL Phosphorus Level 3.2 MG/DL Magnesium Level 2.3 MG/DL Total Bilirubin 1.3 MG/DL Direct Bilirubin 0.2 MG/DL Indirect Bilirubin 1.1 MG/DL Aspartate Amino Transf 9 U/L (AST/SGOT) Alanine Aminotransferase 15 U/L (ALT/SGPT) Alkaline Phosphatase 63 U/L Lactate Dehydrogenase 189 U/L Total Protein 5.8 GM/DL Albumin 3.1 GM/DL Administered Medications Medications (Trade) Dose Ordered Sig/Génesis Route PRN Reason Start Time Stop Time Status Last Admin Dose Admin Acetaminophen (Tylenol) 650 mg Q4H PRN PO PAIN SCALE 0-3 OR TEMP> 100.5F 09/25/16 08:45 09/27/16 05:56 Oxycodone HCl (Roxicodone) 10 mg Q3H PRN PO PAIN SCALE 8 TO 10 09/25/16 08:45 09/30/16 12:12 Diazepam (Valium) 10 mg HS PO 09/25/16 21:00 10/03/16 22:01 Sertraline HCl (Zoloft) 50 mg DAILY PO 09/26/16 09:00 10/04/16 08:34 Oxycodone HCl (Roxicodone) 5 mg QID PO 09/25/16 13:00 10/01/16 13:49 Sodium Chloride 2 ml 2 ml BID IVF 09/25/16 21:00 10/04/16 08:47 Ondansetron HCl/ Dextrose (Zofran Inj/D5W Inj) 54 ml @ 216 mls/hr Q8H PRN IV PUSH NAUSEA OR VOMITING 09/25/16 10:30 09/27/16 02:13 Atenolol (Tenormin) 100 mg DAILY@2100 PO 09/25/16 21:00 10/03/16 22:01 Docusate Sodium 100 mg 100 mg TID PO 09/25/16 18:00 10/02/16 17:02 Sodium Chloride 250 ml @ 100 mls/hr Q24H IV 09/26/16 13:00 09/30/16 13:26 Sodium Chloride (NS 250 ml Inj) 250 ml @ 100 mls/hr Q24H IV 09/26/16 20:00 09/30/16 18:03 Amphetamine/ Dextroamphetamine (Adderall Xr) 15 mg DAILY PO 09/27/16 09:00 10/04/16 08:35 Lisinopril (Prinivil) 10 mg DAILY PO 09/28/16 09:00 Hold 09/30/16 09:22 Fluconazole (Diflucan) 200 mg DAILY PO 09/27/16 13:00 10/04/16 08:34 Amlodipine Besylate (Norvasc) 5 mg DAILY PO 09/29/16 09:00 Hold 09/30/16 09:22 Levofloxacin (Levaquin) 500 mg DAILY@11 PO 10/01/16 11:00 10/03/16 13:22 Acetaminophen (Tylenol) 650 mg Q4H PRN PO FOR BLOOD PRODUCTS 09/30/16 22:00 10/02/16 11:50 Diphenhydramine HCl (Benadryl) 25 mg Q4H PRN PO FOR BLOOD PRODUCTS 09/30/16 22:00 10/02/16 11:50 Objective Remarks GENERAL: Middle aged male, lying in bed in nad. SKIN: Warm and dry. contact dermatitis from tape, about 1cm lesion, just lateral to port. HEAD: Normocephalic. EYES: No injection or drainage. NECK: Supple, trachea midline. CARDIOVASCULAR: Regular rate and rhythm RESPIRATORY: Breath sounds equal bilaterally. No accessory muscle use. GASTROINTESTINAL: Abdomen soft, non-tender, nondistended. EXTREMITIES: No cyanosis. no edema. NEUROLOGICAL: No obvious focal deficit. Awake, alert, and oriented x3. Assessment/Plan Problem List: (1) AML (acute myeloid leukemia) Status: Acute Plan: 10/04: D9. no fever. 10/03: D8. no transfusion. monitor for fever 10/02: Will give 1 unit PRBC's, platelets today. Plan for repeat BMB on 10/10. 10/01: Finished chemotherapy yesterday. Tolerated well. 1 unit irradiated PRBC's to be transfused today. Continue to closely monitor blood counts. 09/30: D5. last day of chemotherapy. will give 1 unit platelets. 09/29: D4. continue chemotherapy. no transfusion. 09/28: D3. 09/27: D2 09/26: Start on CLAG-M chemotherapy for relapsed AML. Received Neupogen yesterday. He spiked a fever this afternoon of 101.3. BC, UA, and CXR ordered. Will start pt on Cefepime. Await BC results. -- He has been getting CBC q2 weeks. On 09/18 it was noted that he had a white count at 11k and a platelet count of 76k. Blasts were at 38%. He was brought in to the clinic on 09/24 for a bone marrow biopsy. A CBC was done and showed a white count of 63.7, Hgb 12.2, and platelet count was 33K. The blasts were at 73 %. Decision was made at that time to admit for salvage chemo. History: 11/04/16: AML Diagnosis made. 46XY, +NPM1 mutation detected, FLT3 negative-- indicates favorable prognosis. 11/05-11/28: Initial induction with MELL-C and idarubicin (7+3). STAT Leukapheresis due to leukostasis. On D25, repeat bone marrow showed residual leukemia. 12/06-12/27: Re-induction with FLANG chemotherapy. Repeat bone marrow biopsy negative for residual AML. Patient in Complete Remission 01/06-01/10: C1 consolidation chemotherapy with Mell-C. 02/17-02/21: C2 consolidation chemotherapy with MELL-C. 03/25-03/30: C3 consolidation chemotherapy with MELL-C 04/28-05/02: C4 consolidation chemo with MELL-C (2) Hypertension Status: Acute Plan: -- Hold amlodipine, lisinopril, continue atenolol (3) Diabetes Status: Acute Plan: --on SSI Novolog (4) Fever Status: Acute Plan: -- BC no growth -- on prophylactic Levaquin -- CXR negative (5) DVT prophylaxis Status: Acute Plan: -- Thrombocytopenia; will hold off on chemical prophylaxis at this time. (6) Constipation Status: Acute Plan: --on Colace schedule --PRN laxative --PRN Relistor Assessment 46 y/o male admitted for salvage chemotherapy for relapsed AML. Attending Statement The exam, history, and the medical decision-making described in the above note were completed with the assistance of the mid-level provider. I reviewed and agree with the findings presented. I attest that I had a [id number] encounter with the patient on the same day, and personally performed and documented my assessment and findings in the medical record. No new c/o. No CP /SOB. Counts are relatively stable, no transfusion needed today. Continue to monitor. Problem Qualifiers (1) Diabetes: Qualified Code: E11.9 - Type 2 diabetes mellitus without complication, without long-term current use of insulin (2) Fever: Qualified Code: R50.9 - Fever, unspecified fever cause (3) Constipation: Qualified Code: K59.00 - Constipation, unspecified constipation type Janet Holm Oct 04, 2016 09:43 Lamine Zelaya MD Oct 04, 2016 11:37
[2016-10-04] MEDS: LEVOFLOXACIN 500 MG TAB PO SCH (11:06)
[2016-10-04 12:00] VITALS: BP 135/87; PULSE 86; RESP 16; TEMP 98; O2SAT 98
[2016-10-04] MEDS: SODIUM CHLOR 0.9% 250 ML INJ 250 ML IV SCH ×2 (13:00→20:00)
[2016-10-04 16:00] VITALS: BP 135/87; PULSE 91; RESP 16; TEMP 97.9; O2SAT 97
[2016-10-04 20:00] VITALS: BP 128/87; PULSE 95; RESP 18; TEMP 98.1; O2SAT 96
[2016-10-04] MEDS: DIAZEPAM 10 MG TAB PO SCH (20:44)
[2016-10-04] MEDS: ATENOLOL 100 MG TAB PO SCH (20:48)
[2016-10-05] VITALS (7 sets, daily range): BP systolic 110–140; BP diastolic 60–83; PULSE 80–99; RESP 16–20; TEMP 96.3–98; O2SAT 95–99
[2016-10-05] MEDS: INSULIN ASPART SUPPLEMENTAL SCALE SQ SCH ×4 (06:15→21:26)
[2016-10-05 07:03] LABS: HEMATOCRIT 23.5 % (39.0-51.0); MEAN CELL VOLUME 87.3 FL (80.0-100.0); MEAN CORPUSCULAR HEMOGLOBIN 31.1 PG (27.0-34.0); MEAN CORPUSCULAR HGB CONC 35.6 % (32.0-36.0); RED BLOOD COUNT 2.69 MIL/MM3 (4.50-5.90); RED CELL DISTRIBUTION WIDTH 15.3 % (11.6-17.2); WHITE BLOOD COUNT 0.2 TH/MM3 (4.0-11.0)
[2016-10-05 07:11] LABS: ALKALINE PHOSPHATASE 76 U/L (45-117); ALT (GPT) 14 U/L (12-78); ANION GAP 5 MEQ/L (5-15); AST (GOT) 7 U/L (15-37); BICARBONATE 31.1 MEQ/L (21.0-32.0); BLOOD UREA NITROGEN 13 MG/DL (7-18); CHLORIDE 102 MEQ/L (98-107); GLOMERULAR FILTRATION RATE 186 ML/MIN (>89); LDH SERUM 172 U/L (87-241); MAGNESIUM 2.3 MG/DL (1.5-2.5); POTASSIUM 3.6 MEQ/L (3.5-5.1); SODIUM (NA) 138 MEQ/L (136-145); TOTAL BILIRUBIN ADULT 1.3 MG/DL (0.2-1.0)
[2016-10-05 07:18] LABS: HEMO FLAGS AUTO DIFF
[2016-10-05 07:19] LABS: PLATELET COUNT 12 TH/MM3 (150-450)
[2016-10-05] MEDS: SODIUM CHLOR 0.9% 250 ML INJ 250 ML IV SCH ×2 (07:36)
[2016-10-05 08:39] LABS: EOSINOPHILS 9 % (0-4); WBC DIFF SAMPLE 35
[2016-10-05 08:42] LABS: PLATELET ESTIMATE SMEAR RARE (NORMAL); PLATELET MORPHOLOGY NORMAL (NORMAL); SCAN/DIFF FINAL DIFF MANUAL
[2016-10-05] MEDS: DOCUSATE SODIUM 100 MG CAP PO SCH ×3 (09:00→18:35)
[2016-10-05] MEDS: DEXTROAMPHETAMINE/AMPHETAMINE XR 15 MG CAP PO SCH (09:55)
[2016-10-05] MEDS: ACETAMINOPHEN 325 MG TAB PO PRN (09:55)
[2016-10-05] MEDS: FLUCONAZOLE 200 MG TAB PO SCH (09:55)
[2016-10-05] MEDS: diphenhydrAMINE HCL 25 MG CAP PO PRN (09:55)
[2016-10-05] MEDS: SERTRALINE HCL 50 MG TAB PO SCH (09:55)
--- NOTE | 2016-10-05 10:12 | PD.ONC.PN ---
Subjective Subjective Remarks Afebrile overnight. Patient resting comfortably. He is having some neck pain and feels emotionally stressed with family events but otherwise feels well. Objective Data Date Time Temp Pulse Resp B/P Pulse Ox O2 Delivery O2 Flow Rate FiO2 10/05/16 04:00 97.5 86 19 116/77 95 10/05/16 00:00 98.0 87 16 113/76 98 10/04/16 20:00 98.1 95 18 128/87 96 10/04/16 16:00 97.9 91 16 135/87 97 10/04/16 12:00 98.0 86 16 135/87 98 10/05/16 10/05/16 10/05/16 07:00 15:00 23:00 Intake Total 240 ml Balance 240 ml Result Diagram: 10/05/16 0600 10/05/16 0600 Laboratory Results Laboratory Tests Test 10/05/16 10/05/16 06:00 08:26 White Blood Count 0.2 TH/MM3 Red Blood Count 2.69 MIL/MM3 Hemoglobin 8.4 GM/DL Hematocrit 23.5 % Mean Corpuscular Volume 87.3 FL Mean Corpuscular Hemoglobin 31.1 PG Mean Corpuscular Hemoglobin 35.6 % Concent Red Cell Distribution Width 15.3 % Platelet Count 12 TH/MM3 Mean Platelet Volume 7.5 FL Neutrophils (%) (Auto) % Lymphocytes (%) (Auto) % Monocytes (%) (Auto) % Eosinophils (%) (Auto) % Basophils (%) (Auto) % Neutrophils # (Auto) TH/MM3 Lymphocytes # (Auto) TH/MM3 Monocytes # (Auto) TH/MM3 Eosinophils # (Auto) TH/MM3 Basophils # (Auto) TH/MM3 CBC Comment AUTO DIFF Differential Total Cells 35 Counted Lymphocytes % 91 % Eosinophils % 9 % Neutrophils # (Manual) 0.0 TH/MM3 Differential Comment FINAL DIFF MANUAL Platelet Estimate RARE Platelet Morphology Comment NORMAL Red Cell Morphology Comment NORMAL Sodium Level 138 MEQ/L Potassium Level 3.6 MEQ/L Chloride Level 102 MEQ/L Carbon Dioxide Level 31.1 MEQ/L Anion Gap 5 MEQ/L Blood Urea Nitrogen 13 MG/DL Creatinine 0.48 MG/DL Estimat Glomerular Filtration 186 ML/MIN Rate Random Glucose 167 MG/DL Calcium Level 8.6 MG/DL Phosphorus Level 3.3 MG/DL Magnesium Level 2.3 MG/DL Total Bilirubin 1.3 MG/DL Aspartate Amino Transf 7 U/L (AST/SGOT) Alanine Aminotransferase 14 U/L (ALT/SGPT) Alkaline Phosphatase 76 U/L Lactate Dehydrogenase 172 U/L Total Protein 5.8 GM/DL Albumin 3.1 GM/DL Blood Bank Comment Administered Medications Medications (Trade) Dose Ordered Sig/Génesis Route PRN Reason Start Time Stop Time Status Last Admin Dose Admin Acetaminophen (Tylenol) 650 mg Q4H PRN PO PAIN SCALE 0-3 OR TEMP> 100.5F 09/25/16 08:45 09/27/16 05:56 Oxycodone HCl (Roxicodone) 10 mg Q3H PRN PO PAIN SCALE 8 TO 10 09/25/16 08:45 09/30/16 12:12 Diazepam (Valium) 10 mg HS PO 09/25/16 21:00 10/04/16 20:44 Sertraline HCl (Zoloft) 50 mg DAILY PO 09/26/16 09:00 10/05/16 09:55 Oxycodone HCl (Roxicodone) 5 mg QID PO 09/25/16 13:00 10/01/16 13:49 Sodium Chloride 2 ml 2 ml BID IVF 09/25/16 21:00 10/04/16 20:44 Ondansetron HCl/ Dextrose (Zofran Inj/D5W Inj) 54 ml @ 216 mls/hr Q8H PRN IV PUSH NAUSEA OR VOMITING 09/25/16 10:30 09/27/16 02:13 Atenolol (Tenormin) 100 mg DAILY@2100 PO 09/25/16 21:00 10/04/16 20:48 Docusate Sodium 100 mg 100 mg TID PO 09/25/16 18:00 10/02/16 17:02 Sodium Chloride 250 ml @ 100 mls/hr Q24H IV 09/26/16 13:00 09/30/16 13:26 Sodium Chloride (NS 250 ml Inj) 250 ml @ 100 mls/hr Q24H IV 09/26/16 20:00 09/30/16 18:03 Amphetamine/ Dextroamphetamine (Adderall Xr) 15 mg DAILY PO 09/27/16 09:00 10/05/16 09:55 Lisinopril (Prinivil) 10 mg DAILY PO 09/28/16 09:00 Hold 09/30/16 09:22 Fluconazole (Diflucan) 200 mg DAILY PO 09/27/16 13:00 10/05/16 09:55 Amlodipine Besylate (Norvasc) 5 mg DAILY PO 09/29/16 09:00 Hold 09/30/16 09:22 Levofloxacin (Levaquin) 500 mg DAILY@11 PO 10/01/16 11:00 10/04/16 11:06 Acetaminophen (Tylenol) 650 mg Q4H PRN PO FOR BLOOD PRODUCTS 09/30/16 22:00 10/05/16 09:55 Diphenhydramine HCl (Benadryl) 25 mg Q4H PRN PO FOR BLOOD PRODUCTS 09/30/16 22:00 10/05/16 09:55 Objective Remarks GENERAL: Middle aged male, sitting up on side of bed in nad. SKIN: Warm and dry. HEAD: Normocephalic. EYES: No injection or drainage. NECK: Supple, trachea midline. CARDIOVASCULAR: Regular rate and rhythm RESPIRATORY: Breath sounds equal bilaterally. No accessory muscle use. GASTROINTESTINAL: Abdomen soft, non-tender, nondistended. EXTREMITIES: No cyanosis. no edema. NEUROLOGICAL: No obvious focal deficit. Awake, alert, and oriented x3. Assessment/Plan Problem List: (1) AML (acute myeloid leukemia) Status: Acute Plan: 10/05: 1 unit platelets today 10/04: D9. no fever. 10/03: D8. no transfusion. monitor for fever 10/02: Will give 1 unit PRBC's, platelets today. Plan for repeat BMB on 10/10. 10/01: Finished chemotherapy yesterday. Tolerated well. 1 unit irradiated PRBC's to be transfused today. Continue to closely monitor blood counts. 09/30: D5. last day of chemotherapy. will give 1 unit platelets. 09/29: D4. continue chemotherapy. no transfusion. 09/28: D3. 09/27: D2 09/26: Start on CLAG-M chemotherapy for relapsed AML. Received Neupogen yesterday. He spiked a fever this afternoon of 101.3. BC, UA, and CXR ordered. Will start pt on Cefepime. Await BC results. -- He has been getting CBC q2 weeks. On 09/18 it was noted that he had a white count at 11k and a platelet count of 76k. Blasts were at 38%. He was brought in to the clinic on 09/24 for a bone marrow biopsy. A CBC was done and showed a white count of 63.7, Hgb 12.2, and platelet count was 33K. The blasts were at 73 %. Decision was made at that time to admit for salvage chemo. History: 11/04/16: AML Diagnosis made. 46XY, +NPM1 mutation detected, FLT3 negative-- indicates favorable prognosis. 11/05-11/28: Initial induction with MELL-C and idarubicin (7+3). STAT Leukapheresis due to leukostasis. On D25, repeat bone marrow showed residual leukemia. 12/06-12/27: Re-induction with FLANG chemotherapy. Repeat bone marrow biopsy negative for residual AML. Patient in Complete Remission 01/06-01/10: C1 consolidation chemotherapy with Mell-C. 02/17-02/21: C2 consolidation chemotherapy with MELL-C. 03/25-03/30: C3 consolidation chemotherapy with MELL-C 04/28-05/02: C4 consolidation chemo with MELL-C (2) Hypertension Status: Acute Plan: -- Hold amlodipine, lisinopril, continue atenolol (3) Diabetes Status: Acute Plan: --on SSI Novolog (4) Fever Status: Acute Plan: -- BC no growth -- on prophylactic Levaquin -- CXR negative (5) DVT prophylaxis Status: Acute Plan: -- Thrombocytopenia; will hold off on chemical prophylaxis at this time. (6) Constipation Status: Acute Plan: --on Colace schedule --PRN laxative --PRN Relistor Assessment 46 y/o male admitted for salvage chemotherapy for relapsed AML. Attending Statement The exam, history, and the medical decision-making described in the above note were completed with the assistance of the mid-level provider. I reviewed and agree with the findings presented. I attest that I had a [id number] encounter with the patient on the same day, and personally performed and documented my assessment and findings in the medical record. No new c/o. No bleeding. Remains afebrile. Will transfuse platelet today. Continue supportive care. Problem Qualifiers (1) Diabetes: Qualified Code: E11.9 - Type 2 diabetes mellitus without complication, without long-term current use of insulin (2) Fever: Qualified Code: R50.9 - Fever, unspecified fever cause (3) Constipation: Qualified Code: K59.00 - Constipation, unspecified constipation type Janet Holm Oct 05, 2016 10:12 Lamine Zelaya MD Oct 05, 2016 11:13
[2016-10-05] MEDS ORDERED: DIAZEPAM 5 MG TAB PO ONE (10:15)
[2016-10-05] MEDS: SODIUM CHLORIDE 10 ML FLUSH BID IVF SCH ×2 (11:40→21:00)
[2016-10-05] MEDS: LEVOFLOXACIN 500 MG TAB PO SCH (11:52)
[2016-10-05 21:06] LABS: MEAN CORPUSCULAR HGB CONC 36.6 % (32.0-36.0)
[2016-10-05] MEDS: ATENOLOL 100 MG TAB PO SCH (21:27)
[2016-10-05] MEDS: DIAZEPAM 10 MG TAB PO SCH (21:28)
[2016-10-06] VITALS (8 sets, daily range): BP systolic 118–155; BP diastolic 69–86; PULSE 84–95; RESP 16–20; TEMP 97.6–98.6; O2SAT 95–100
[2016-10-06] MEDS: INSULIN ASPART SUPPLEMENTAL SCALE SQ SCH ×4 (05:19→20:31)
[2016-10-06 05:49] LABS: MEAN CELL VOLUME 85.8 FL (80.0-100.0); MEAN CORPUSCULAR HEMOGLOBIN 31.4 PG (27.0-34.0); PLATELET COUNT 38 TH/MM3 (150-450); RED BLOOD COUNT 2.41 MIL/MM3 (4.50-5.90); WHITE BLOOD COUNT 0.1 TH/MM3 (4.0-11.0)
[2016-10-06 06:12] LABS: ALT (GPT) 15 U/L (12-78); ANION GAP 7 MEQ/L (5-15); AST (GOT) 4 U/L (15-37); BICARBONATE 29.5 MEQ/L (21.0-32.0); BLOOD UREA NITROGEN 12 MG/DL (7-18); CHLORIDE 103 MEQ/L (98-107); GLOMERULAR FILTRATION RATE 195 ML/MIN (>89); POTASSIUM 3.6 MEQ/L (3.5-5.1); SODIUM (NA) 139 MEQ/L (136-145)
[2016-10-06 06:14] LABS: ALKALINE PHOSPHATASE 82 U/L (45-117); TOTAL BILIRUBIN ADULT 1.5 MG/DL (0.2-1.0)
[2016-10-06 06:23] LABS: HEMO FLAGS AUTO DIFF
[2016-10-06 06:25] LABS: HEMATOCRIT 20.7 % (39.0-51.0)
[2016-10-06] MEDS ORDERED: diphenhydrAMINE HCL 25 MG CAP PO PRN (08:15)
[2016-10-06] MEDS ORDERED: SODIUM CHLOR 0.9% 250 ML INJ 250 ML IV ONE (08:15)
[2016-10-06] MEDS ORDERED: ACETAMINOPHEN 325 MG TAB PO PRN (08:15)
[2016-10-06 09:05] LABS: WBC DIFF SAMPLE 20
[2016-10-06 09:06] LABS: OVALOCYTES 1+ (NORMAL); PLATELET ESTIMATE SMEAR LOW (NORMAL); PLATELET MORPHOLOGY NORMAL (NORMAL); SCAN/DIFF FINAL DIFF MANUAL
[2016-10-06] MEDS: FLUCONAZOLE 200 MG TAB PO SCH (09:30)
[2016-10-06] MEDS: DEXTROAMPHETAMINE/AMPHETAMINE XR 15 MG CAP PO SCH (09:30)
[2016-10-06] MEDS: DOCUSATE SODIUM 100 MG CAP PO SCH ×3 (09:30→17:33)
[2016-10-06] MEDS: SERTRALINE HCL 50 MG TAB PO SCH (09:30)
[2016-10-06] MEDS: SODIUM CHLORIDE 10 ML FLUSH BID IVF SCH ×2 (09:35→20:30)
[2016-10-06] MEDS: ACETAMINOPHEN 325 MG TAB PO PRN (11:37)
[2016-10-06] MEDS: diphenhydrAMINE HCL 25 MG CAP PO PRN (11:37)
[2016-10-06] MEDS: LEVOFLOXACIN 500 MG TAB PO SCH (11:37)
--- NOTE | 2016-10-06 12:45 | PD.ONC.PN ---
Subjective Subjective Remarks Afebrile overnight. Patient had some difficulty sleeping last night, as he slept a lot during the day yesterday. No bleeding. Objective Data Date Time Temp Pulse Resp B/P Pulse Ox O2 Delivery O2 Flow Rate FiO2 10/06/16 11:41 98.6 88 16 129/81 100 10/06/16 08:00 97.8 84 20 126/82 99 10/06/16 04:00 97.9 85 18 118/74 97 10/06/16 00:00 98.1 93 18 149/83 98 10/05/16 20:00 97.9 95 18 140/83 99 10/05/16 16:00 97.8 99 16 134/76 98 10/06/16 10/06/16 10/06/16 07:00 15:00 23:00 Intake Total 480 ml Balance 480 ml Result Diagram: 10/06/16 0520 10/06/16 0520 Laboratory Results Laboratory Tests Test 10/06/16 10/06/16 05:20 09:35 White Blood Count 0.1 TH/MM3 Red Blood Count 2.41 MIL/MM3 Hemoglobin 7.6 GM/DL Hematocrit 20.7 % Mean Corpuscular Volume 85.8 FL Mean Corpuscular Hemoglobin 31.4 PG Mean Corpuscular Hemoglobin 36.6 % Concent Red Cell Distribution Width 15.0 % Platelet Count 38 TH/MM3 Mean Platelet Volume 7.3 FL Neutrophils (%) (Auto) % Lymphocytes (%) (Auto) % Monocytes (%) (Auto) % Eosinophils (%) (Auto) % Basophils (%) (Auto) % Neutrophils # (Auto) TH/MM3 Lymphocytes # (Auto) TH/MM3 Monocytes # (Auto) TH/MM3 Eosinophils # (Auto) TH/MM3 Basophils # (Auto) TH/MM3 CBC Comment AUTO DIFF Differential Total Cells 20 Counted Lymphocytes % 100 % Neutrophils # (Manual) 0.0 TH/MM3 Differential Comment FINAL DIFF MANUAL Platelet Estimate LOW Platelet Morphology Comment NORMAL Ovalocytes 1+ Sodium Level 139 MEQ/L Potassium Level 3.6 MEQ/L Chloride Level 103 MEQ/L Carbon Dioxide Level 29.5 MEQ/L Anion Gap 7 MEQ/L Blood Urea Nitrogen 12 MG/DL Creatinine 0.46 MG/DL Estimat Glomerular Filtration 195 ML/MIN Rate Random Glucose 136 MG/DL Calcium Level 8.6 MG/DL Total Bilirubin 1.5 MG/DL Aspartate Amino Transf 4 U/L (AST/SGOT) Alanine Aminotransferase 15 U/L (ALT/SGPT) Alkaline Phosphatase 82 U/L Total Protein 6.0 GM/DL Albumin 3.4 GM/DL Blood Type O POSITIVE Antibody Screen NEGATIVE Crossmatch Irradiated/Leukocyte-Reduced RBC Blood Bank Comment Administered Medications Medications (Trade) Dose Ordered Sig/Génesis Route PRN Reason Start Time Stop Time Status Last Admin Dose Admin Acetaminophen (Tylenol) 650 mg Q4H PRN PO PAIN SCALE 0-3 OR TEMP> 100.5F 09/25/16 08:45 09/27/16 05:56 Oxycodone HCl (Roxicodone) 10 mg Q3H PRN PO PAIN SCALE 8 TO 10 09/25/16 08:45 09/30/16 12:12 Diazepam (Valium) 10 mg HS PO 09/25/16 21:00 10/05/16 21:28 Sertraline HCl (Zoloft) 50 mg DAILY PO 09/26/16 09:00 10/06/16 09:30 Oxycodone HCl (Roxicodone) 5 mg QID PO 09/25/16 13:00 10/01/16 13:49 Sodium Chloride 2 ml 2 ml BID IVF 09/25/16 21:00 10/06/16 09:35 Ondansetron HCl/ Dextrose (Zofran Inj/D5W Inj) 54 ml @ 216 mls/hr Q8H PRN IV PUSH NAUSEA OR VOMITING 09/25/16 10:30 09/27/16 02:13 Atenolol (Tenormin) 100 mg DAILY@2100 PO 09/25/16 21:00 10/05/16 21:27 Docusate Sodium 100 mg 100 mg TID PO 09/25/16 18:00 10/05/16 18:35 Sodium Chloride 250 ml @ 100 mls/hr Q24H IV 09/26/16 13:00 09/30/16 13:26 Sodium Chloride (NS 250 ml Inj) 250 ml @ 100 mls/hr Q24H IV 09/26/16 20:00 09/30/16 18:03 Amphetamine/ Dextroamphetamine (Adderall Xr) 15 mg DAILY PO 09/27/16 09:00 10/06/16 09:30 Lisinopril (Prinivil) 10 mg DAILY PO 09/28/16 09:00 Hold 09/30/16 09:22 Fluconazole (Diflucan) 200 mg DAILY PO 09/27/16 13:00 10/06/16 09:30 Amlodipine Besylate (Norvasc) 5 mg DAILY PO 09/29/16 09:00 Hold 09/30/16 09:22 Levofloxacin (Levaquin) 500 mg DAILY@11 PO 10/01/16 11:00 10/06/16 11:37 Acetaminophen (Tylenol) 650 mg Q4H PRN PO FOR BLOOD PRODUCTS 09/30/16 22:00 10/06/16 11:37 Diphenhydramine HCl 25 mg 25 mg Q4H PRN PO FOR BLOOD PRODUCTS 09/30/16 22:00 10/06/16 11:37 Sodium Chloride (NS 250 ml Inj) 250 ml @ 15 mls/hr ONCE ONCE IV 10/06/16 08:15 10/07/16 00:54 10/06/16 11:38 Objective Remarks GENERAL: Middle aged male, sitting up in bed in [facility]. SKIN: Warm and dry. port site clean. HEAD: Normocephalic. EYES: No injection or drainage. NECK: Supple, trachea midline. CARDIOVASCULAR: Regular rate and rhythm RESPIRATORY: Breath sounds equal bilaterally. No accessory muscle use. GASTROINTESTINAL: Abdomen soft, non-tender, nondistended. EXTREMITIES: No cyanosis. no edema. NEUROLOGICAL: awake and alert, normal speech. moving all extremities. Assessment/Plan Problem List: (1) AML (acute myeloid leukemia) Status: Acute Plan: 10/06: 2 units pRBC today. plan to do bone marrow biopsy AM. 10/05: 1 unit platelets today 10/04: D9. no fever. 10/03: D8. no transfusion. monitor for fever 10/02: Will give 1 unit PRBC's, platelets today. Plan for repeat BMB on 10/10. 10/01: Finished chemotherapy yesterday. Tolerated well. 1 unit irradiated PRBC's to be transfused today. Continue to closely monitor blood counts. 09/30: D5. last day of chemotherapy. will give 1 unit platelets. 09/29: D4. continue chemotherapy. no transfusion. 09/28: D3. 09/27: D2 09/26: Start on CLAG-M chemotherapy for relapsed AML. Received Neupogen yesterday. He spiked a fever this afternoon of 101.3. BC, UA, and CXR ordered. Will start pt on Cefepime. Await BC results. -- He has been getting CBC q2 weeks. On 09/18 it was noted that he had a white count at 11k and a platelet count of 76k. Blasts were at 38%. He was brought in to the clinic on 09/24 for a bone marrow biopsy. A CBC was done and showed a white count of 63.7, Hgb 12.2, and platelet count was 33K. The blasts were at 73 %. Decision was made at that time to admit for salvage chemo. History: 11/04/16: AML Diagnosis made. 46XY, +NPM1 mutation detected, FLT3 negative-- indicates favorable prognosis. 11/05-11/28: Initial induction with MELL-C and idarubicin (7+3). STAT Leukapheresis due to leukostasis. On D25, repeat bone marrow showed residual leukemia. 12/06-12/27: Re-induction with FLANG chemotherapy. Repeat bone marrow biopsy negative for residual AML. Patient in Complete Remission 01/06-01/10: C1 consolidation chemotherapy with Mell-C. 02/17-02/21: C2 consolidation chemotherapy with MELL-C. 03/25-03/30: C3 consolidation chemotherapy with MELL-C 04/28-05/02: C4 consolidation chemo with MELL-C (2) Hypertension Status: Acute Plan: -- Hold amlodipine, lisinopril, continue atenolol (3) Diabetes Status: Acute Plan: --on SSI Novolog (4) Fever Status: Acute Plan: -- BC no growth -- on prophylactic Levaquin + Diflucan -- CXR negative (5) DVT prophylaxis Status: Acute Plan: -- Thrombocytopenia; will hold off on chemical prophylaxis at this time. (6) Constipation Status: Acute Plan: --on Colace schedule --PRN laxative --PRN Relistor Assessment 46 y/o male admitted for salvage chemotherapy for relapsed AML. Attending Statement c/o insomnia and dizziness.. PRBC today. await for BM recovery. Day #11 today. d/w pt and , The exam, history, and the medical decision-making described in the above note were completed with the assistance of the mid-level provider. I reviewed and agree with the findings presented. I attest that I had a [id number] encounter with the patient on the same day, and personally performed and documented my assessment and findings in the medical record. Problem Qualifiers (1) Diabetes: Qualified Code: E11.9 - Type 2 diabetes mellitus without complication, without long-term current use of insulin (2) Fever: Qualified Code: R50.9 - Fever, unspecified fever cause (3) Constipation: Qualified Code: K59.00 - Constipation, unspecified constipation type Janet Holm Oct 06, 2016 12:45 Alexandra Olea MD Oct 06, 2016 18:57
[2016-10-06] MEDS: SODIUM CHLOR 0.9% 250 ML INJ 250 ML IV SCH (13:55)
[2016-10-06] MEDS: ATENOLOL 100 MG TAB PO SCH (20:30)
[2016-10-06 21:10] LABS: MEAN CORPUSCULAR HGB CONC 36.6 % (32.0-36.0)
[2016-10-06] MEDS: DIAZEPAM 10 MG TAB PO SCH (23:43)
[2016-10-07] VITALS: BP 129/82; PULSE 93; RESP 18; TEMP 96.7; O2SAT 97
[2016-10-07 06:14] LABS: HEMATOCRIT 24.8 % (39.0-51.0); MEAN CELL VOLUME 82.4 FL (80.0-100.0); MEAN CORPUSCULAR HEMOGLOBIN 30.2 PG (27.0-34.0); PLATELET COUNT 26 TH/MM3 (150-450); RED CELL DISTRIBUTION WIDTH 16.7 % (11.6-17.2); WHITE BLOOD COUNT 0.1 TH/MM3 (4.0-11.0)
[2016-10-07 06:19] LABS: HEMO FLAGS AUTO DIFF
[2016-10-07] MEDS: INSULIN ASPART SUPPLEMENTAL SCALE SQ SCH ×4 (07:00→21:03)
[2016-10-07 08:00] VITALS: BP 124/79; PULSE 92; RESP 16; TEMP 97.2; O2SAT 97
[2016-10-07 08:16] LABS: SCAN/DIFF FINAL DIFF MANUAL; WBC DIFF SAMPLE 5
[2016-10-07 08:17] LABS: PLATELET ESTIMATE SMEAR LOW (NORMAL); PLATELET MORPHOLOGY NORMAL (NORMAL)
[2016-10-07] MEDS: DEXTROAMPHETAMINE/AMPHETAMINE XR 15 MG CAP PO SCH (09:46)
[2016-10-07] MEDS: SERTRALINE HCL 50 MG TAB PO SCH (09:46)
[2016-10-07] MEDS: FLUCONAZOLE 200 MG TAB PO SCH (09:46)
[2016-10-07] MEDS: DOCUSATE SODIUM 100 MG CAP PO SCH ×3 (09:47→19:05)
[2016-10-07] MEDS: SODIUM CHLORIDE 10 ML FLUSH BID IVF SCH ×2 (09:51→21:03)
[2016-10-07 12:00] VITALS: BP 129/81; PULSE 100; RESP 16; TEMP 97.3; O2SAT 100
--- NOTE | 2016-10-07 12:23 | PD.ONC.PN ---
Subjective Subjective Remarks Afebrile overnight. Patient feeling better today after blood transfusion yesterday. Eating well but tired of the food here. Having bowel movements. Objective Data Date Time Temp Pulse Resp B/P Pulse Ox O2 Delivery O2 Flow Rate FiO2 10/07/16 08:00 97.2 92 16 124/79 97 10/07/16 00:00 96.7 93 18 129/82 97 10/06/16 20:00 98.1 84 17 155/86 96 10/06/16 15:43 97.7 95 16 148/79 100 10/06/16 14:45 98.4 94 16 118/78 95 10/06/16 12:52 97.6 92 16 132/69 100 Result Diagram: 10/07/16 0550 10/06/16 0520 Laboratory Results Laboratory Tests Test 10/07/16 05:50 White Blood Count 0.1 TH/MM3 Red Blood Count 3.00 MIL/MM3 Hemoglobin 9.1 GM/DL Hematocrit 24.8 % Mean Corpuscular Volume 82.4 FL Mean Corpuscular Hemoglobin 30.2 PG Mean Corpuscular Hemoglobin 36.6 % Concent Red Cell Distribution Width 16.7 % Platelet Count 26 TH/MM3 Mean Platelet Volume 7.5 FL Neutrophils (%) (Auto) % Lymphocytes (%) (Auto) % Monocytes (%) (Auto) % Eosinophils (%) (Auto) % Basophils (%) (Auto) % Neutrophils # (Auto) TH/MM3 Lymphocytes # (Auto) TH/MM3 Monocytes # (Auto) TH/MM3 Eosinophils # (Auto) TH/MM3 Basophils # (Auto) TH/MM3 CBC Comment AUTO DIFF Differential Total Cells 5 Counted Lymphocytes % 100 % Neutrophils # (Manual) 0.0 TH/MM3 Differential Comment FINAL DIFF MANUAL Platelet Estimate LOW Platelet Morphology Comment NORMAL Administered Medications Medications (Trade) Dose Ordered Sig/Génesis Route PRN Reason Start Time Stop Time Status Last Admin Dose Admin Acetaminophen (Tylenol) 650 mg Q4H PRN PO PAIN SCALE 0-3 OR TEMP> 100.5F 09/25/16 08:45 09/27/16 05:56 Oxycodone HCl (Roxicodone) 10 mg Q3H PRN PO PAIN SCALE 8 TO 10 09/25/16 08:45 09/30/16 12:12 Diazepam (Valium) 10 mg HS PO 09/25/16 21:00 10/06/16 23:43 Sertraline HCl (Zoloft) 50 mg DAILY PO 09/26/16 09:00 10/07/16 09:46 Oxycodone HCl (Roxicodone) 5 mg QID PO 09/25/16 13:00 10/01/16 13:49 Sodium Chloride 2 ml 2 ml BID IVF 09/25/16 21:00 10/07/16 09:51 Ondansetron HCl/ Dextrose (Zofran Inj/D5W Inj) 54 ml @ 216 mls/hr Q8H PRN IV PUSH NAUSEA OR VOMITING 09/25/16 10:30 09/27/16 02:13 Atenolol (Tenormin) 100 mg DAILY@2100 PO 09/25/16 21:00 10/06/16 20:30 Docusate Sodium 100 mg 100 mg TID PO 09/25/16 18:00 10/05/16 18:35 Sodium Chloride 250 ml @ 100 mls/hr Q24H IV 09/26/16 13:00 09/30/16 13:26 Sodium Chloride (NS 250 ml Inj) 250 ml @ 100 mls/hr Q24H IV 09/26/16 20:00 09/30/16 18:03 Amphetamine/ Dextroamphetamine (Adderall Xr) 15 mg DAILY PO 09/27/16 09:00 10/07/16 09:46 Lisinopril (Prinivil) 10 mg DAILY PO 09/28/16 09:00 Hold 09/30/16 09:22 Fluconazole (Diflucan) 200 mg DAILY PO 09/27/16 13:00 10/07/16 09:46 Amlodipine Besylate (Norvasc) 5 mg DAILY PO 09/29/16 09:00 Hold 09/30/16 09:22 Levofloxacin (Levaquin) 500 mg DAILY@11 PO 10/01/16 11:00 10/06/16 11:37 Acetaminophen (Tylenol) 650 mg Q4H PRN PO FOR BLOOD PRODUCTS 09/30/16 22:00 10/06/16 11:37 Diphenhydramine HCl (Benadryl) 25 mg Q4H PRN PO FOR BLOOD PRODUCTS 09/30/16 22:00 10/06/16 11:37 Objective Remarks GENERAL: Middle aged male, upright in room in nad. SKIN: Warm and dry. port site clean. HEAD: Normocephalic. EYES: No injection or drainage. NECK: Supple, trachea midline. CARDIOVASCULAR: Regular rate and rhythm RESPIRATORY: Breath sounds equal bilaterally. No accessory muscle use. GASTROINTESTINAL: Abdomen soft, non-tender, nondistended. EXTREMITIES: No cyanosis. no edema. NEUROLOGICAL: aox3. normal speech. moving all extremities. Assessment/Plan Problem List: (1) AML (acute myeloid leukemia) Status: Acute Plan: 10/07: flow cytometry results returned showing NPM1 + and FLT3 +. I obtained the original pathology again from to double check and the original FLT3 was NEGATIVE. NPM1 mutation was detected 43.4%, KIT mutation not detected. 46XY 10/06: 2 units pRBC today. plan to do bone marrow biopsy AM. 10/05: 1 unit platelets today 10/04: D9. no fever. 10/03: D8. no transfusion. monitor for fever 10/02: Will give 1 unit PRBC's, platelets today. Plan for repeat BMB on 10/10. 10/01: Finished chemotherapy yesterday. Tolerated well. 1 unit irradiated PRBC's to be transfused today. Continue to closely monitor blood counts. 09/30: D5. last day of chemotherapy. will give 1 unit platelets. 09/29: D4. continue chemotherapy. no transfusion. 09/28: D3. 09/27: D2 09/26: Start on CLAG-M chemotherapy for relapsed AML. Received Neupogen yesterday. He spiked a fever this afternoon of 101.3. BC, UA, and CXR ordered. Will start pt on Cefepime. Await BC results. -- He has been getting CBC q2 weeks. On 09/18 it was noted that he had a white count at 11k and a platelet count of 76k. Blasts were at 38%. He was brought in to the clinic on 09/24 for a bone marrow biopsy. A CBC was done and showed a white count of 63.7, Hgb 12.2, and platelet count was 33K. The blasts were at 73 %. Decision was made at that time to admit for salvage chemo. History: 11/04/16: AML Diagnosis made. 46XY, +NPM1 mutation detected, FLT3 negative-- indicates favorable prognosis. 11/05-11/28: Initial induction with MELL-C and idarubicin (7+3). STAT Leukapheresis due to leukostasis. On D25, repeat bone marrow showed residual leukemia. 12/06-12/27: Re-induction with FLANG chemotherapy. Repeat bone marrow biopsy negative for residual AML. Patient in Complete Remission 01/06-01/10: C1 consolidation chemotherapy with Mell-C. 02/17-02/21: C2 consolidation chemotherapy with MELL-C. 03/25-03/30: C3 consolidation chemotherapy with MELL-C 04/28-05/02: C4 consolidation chemo with MELL-C (2) Hypertension Status: Acute Plan: -- Hold amlodipine, lisinopril, continue atenolol (3) Diabetes Status: Acute Plan: --on SSI Novolog (4) Fever Status: Acute Plan: -- BC no growth -- on prophylactic Levaquin + Diflucan -- CXR negative (5) DVT prophylaxis Status: Acute Plan: -- Thrombocytopenia; will hold off on chemical prophylaxis at this time. (6) Constipation Status: Acute Plan: --on Colace schedule --PRN laxative --PRN Relistor Assessment 46 y/o male admitted for salvage chemotherapy for relapsed AML. Attending Statement no new c/o except does not like hospital food. no fevers. stable. BM chromosome normal 46 XY, NPMI 1 is positive and FLT 3 is now positive ( FLT3 was negative at time of DX.). This is molecular evolution which carries a bad prognosis. Repeat BM bx this . will follow. Problem Qualifiers (1) Diabetes: Qualified Code: E11.9 - Type 2 diabetes mellitus without complication, without long-term current use of insulin (2) Fever: Qualified Code: R50.9 - Fever, unspecified fever cause (3) Constipation: Qualified Code: K59.00 - Constipation, unspecified constipation type Janet Holm Oct 07, 2016 12:23 Alexandra Olea MD Oct 07, 2016 18:37
[2016-10-07] MEDS: LEVOFLOXACIN 500 MG TAB PO SCH (12:45)
[2016-10-07] MEDS: SODIUM CHLOR 0.9% 250 ML INJ 250 ML IV SCH ×2 (13:19→19:05)
[2016-10-07 16:00] VITALS: BP 116/77; PULSE 95; RESP 16; TEMP 97.6; O2SAT 97
[2016-10-07 20:00] VITALS: BP 146/82; PULSE 97; RESP 18; TEMP 98.1; O2SAT 100
[2016-10-07] MEDS: DIAZEPAM 10 MG TAB PO SCH (21:02)
[2016-10-07] MEDS: ATENOLOL 100 MG TAB PO SCH (21:04)
[2016-10-08] VITALS (7 sets, daily range): BP systolic 116–148; BP diastolic 62–83; PULSE 90–108; RESP 15–18; TEMP 97.2–99.2; O2SAT 96–100
[2016-10-08] MEDS: INSULIN ASPART SUPPLEMENTAL SCALE SQ SCH ×4 (07:00→22:29)
[2016-10-08 07:09] LABS: HEMATOCRIT 23.7 % (39.0-51.0); MEAN CELL VOLUME 83.2 FL (80.0-100.0); MEAN CORPUSCULAR HEMOGLOBIN 29.2 PG (27.0-34.0); MEAN CORPUSCULAR HGB CONC 35.1 % (32.0-36.0); RED BLOOD COUNT 2.85 MIL/MM3 (4.50-5.90); RED CELL DISTRIBUTION WIDTH 16.3 % (11.6-17.2); WHITE BLOOD COUNT 0.1 TH/MM3 (4.0-11.0)
[2016-10-08 07:12] LABS: HEMO FLAGS AUTO DIFF
[2016-10-08 07:15] LABS: PLATELET COUNT 17 TH/MM3 (150-450)
[2016-10-08] MEDS: SODIUM CHLOR 0.9% 250 ML INJ 250 ML IV SCH ×2 (07:49→20:00)
[2016-10-08 08:23] LABS: WBC DIFF SAMPLE 15
[2016-10-08 08:24] LABS: PLATELET ESTIMATE SMEAR RARE (NORMAL); PLATELET MORPHOLOGY NORMAL (NORMAL); SCAN/DIFF FINAL DIFF MANUAL
[2016-10-08] MEDS ORDERED: SODIUM CHLOR 0.9% 250 ML INJ 250 ML IV ONE (08:30)
[2016-10-08] MEDS ORDERED: diphenhydrAMINE HCL 25 MG CAP PO PRN (08:30)
[2016-10-08] MEDS ORDERED: ACETAMINOPHEN 325 MG TAB PO PRN (08:30)
[2016-10-08] MEDS: DOCUSATE SODIUM 100 MG CAP PO SCH ×3 (09:00→17:30)
[2016-10-08] MEDS: SERTRALINE HCL 50 MG TAB PO SCH (09:28)
[2016-10-08] MEDS: DEXTROAMPHETAMINE/AMPHETAMINE XR 15 MG CAP PO SCH (09:28)
[2016-10-08] MEDS: FLUCONAZOLE 200 MG TAB PO SCH (09:28)
[2016-10-08] MEDS: SODIUM CHLORIDE 10 ML FLUSH BID IVF SCH ×2 (09:29→21:00)
[2016-10-08] MEDS: diphenhydrAMINE HCL 25 MG CAP PO PRN (09:29)
[2016-10-08] MEDS: ACETAMINOPHEN 325 MG TAB PO PRN (09:29)
[2016-10-08] MEDS: LEVOFLOXACIN 500 MG TAB PO SCH (12:29)
--- NOTE | 2016-10-08 12:41 | PD.ONC.PN ---
Subjective Subjective Remarks Afebrile overnight. Patient resting comfortably. No overnight events. Objective Data Date Time Temp Pulse Resp B/P Pulse Ox O2 Delivery O2 Flow Rate FiO2 10/08/16 10:34 98.0 104 16 116/62 97 10/08/16 09:00 97.2 93 15 118/76 96 10/08/16 06:00 98.4 90 18 117/69 98 10/08/16 01:00 99.2 93 18 132/83 99 10/07/16 20:00 98.1 97 18 146/82 100 10/07/16 16:00 97.6 95 16 116/77 97 Result Diagram: 10/08/16 0600 10/06/16 0520 Laboratory Results Laboratory Tests Test 10/08/16 10/08/16 06:00 08:35 White Blood Count 0.1 TH/MM3 Red Blood Count 2.85 MIL/MM3 Hemoglobin 8.3 GM/DL Hematocrit 23.7 % Mean Corpuscular Volume 83.2 FL Mean Corpuscular Hemoglobin 29.2 PG Mean Corpuscular Hemoglobin 35.1 % Concent Red Cell Distribution Width 16.3 % Platelet Count 17 TH/MM3 Mean Platelet Volume 7.5 FL Neutrophils (%) (Auto) % Lymphocytes (%) (Auto) % Monocytes (%) (Auto) % Eosinophils (%) (Auto) % Basophils (%) (Auto) % Neutrophils # (Auto) TH/MM3 Lymphocytes # (Auto) TH/MM3 Monocytes # (Auto) TH/MM3 Eosinophils # (Auto) TH/MM3 Basophils # (Auto) TH/MM3 CBC Comment AUTO DIFF Differential Total Cells 15 Counted Lymphocytes % 100 % Neutrophils # (Manual) 0.0 TH/MM3 Differential Comment FINAL DIFF MANUAL Platelet Estimate RARE Platelet Morphology Comment NORMAL Blood Bank Comment Administered Medications Medications (Trade) Dose Ordered Sig/Génesis Route PRN Reason Start Time Stop Time Status Last Admin Dose Admin Acetaminophen (Tylenol) 650 mg Q4H PRN PO PAIN SCALE 0-3 OR TEMP> 100.5F 09/25/16 08:45 09/27/16 05:56 Oxycodone HCl (Roxicodone) 10 mg Q3H PRN PO PAIN SCALE 8 TO 10 09/25/16 08:45 09/30/16 12:12 Diazepam (Valium) 10 mg HS PO 09/25/16 21:00 10/07/16 21:02 Sertraline HCl (Zoloft) 50 mg DAILY PO 09/26/16 09:00 10/08/16 09:28 Oxycodone HCl (Roxicodone) 5 mg QID PO 09/25/16 13:00 10/01/16 13:49 Sodium Chloride 2 ml 2 ml BID IVF 09/25/16 21:00 10/08/16 09:29 Ondansetron HCl/ Dextrose (Zofran Inj/D5W Inj) 54 ml @ 216 mls/hr Q8H PRN IV PUSH NAUSEA OR VOMITING 09/25/16 10:30 09/27/16 02:13 Atenolol (Tenormin) 100 mg DAILY@2100 PO 09/25/16 21:00 10/07/16 21:04 Docusate Sodium 100 mg 100 mg TID PO 09/25/16 18:00 10/05/16 18:35 Sodium Chloride 250 ml @ 100 mls/hr Q24H IV 09/26/16 13:00 09/30/16 13:26 Sodium Chloride (NS 250 ml Inj) 250 ml @ 100 mls/hr Q24H IV 09/26/16 20:00 09/30/16 18:03 Amphetamine/ Dextroamphetamine (Adderall Xr) 15 mg DAILY PO 09/27/16 09:00 10/08/16 09:28 Lisinopril (Prinivil) 10 mg DAILY PO 09/28/16 09:00 Hold 09/30/16 09:22 Fluconazole (Diflucan) 200 mg DAILY PO 09/27/16 13:00 10/08/16 09:28 Amlodipine Besylate (Norvasc) 5 mg DAILY PO 09/29/16 09:00 Hold 09/30/16 09:22 Levofloxacin (Levaquin) 500 mg DAILY@11 PO 10/01/16 11:00 10/08/16 12:29 Acetaminophen (Tylenol) 650 mg Q4H PRN PO FOR BLOOD PRODUCTS 09/30/16 22:00 10/08/16 09:29 Diphenhydramine HCl 25 mg 25 mg Q4H PRN PO FOR BLOOD PRODUCTS 09/30/16 22:00 10/08/16 09:29 Sodium Chloride (NS 250 ml Inj) 250 ml @ 15 mls/hr ONCE ONCE IV 10/08/16 08:30 10/09/16 01:09 10/08/16 10:40 Objective Remarks GENERAL: Middle aged male, sitting up in bed in [facility]. SKIN: Warm and dry. port in place, site clean. HEAD: Normocephalic. EYES: No injection or drainage. NECK: Supple, trachea midline. CARDIOVASCULAR: Regular rate and rhythm RESPIRATORY: Breath sounds equal bilaterally. No accessory muscle use. GASTROINTESTINAL: Abdomen soft, non-tender, nondistended. EXTREMITIES: No cyanosis NEUROLOGICAL: No obvious focal deficit. Awake, alert, and oriented x3. Assessment/Plan Problem List: (1) AML (acute myeloid leukemia) Status: Acute Plan: 10/08: day 13. 1 unit platelets. bone marrow biopsy tomorrow. 10/07: flow cytometry results returned showing NPM1 + and FLT3 +. I obtained the original pathology again from to double check and the original FLT3 was NEGATIVE. NPM1 mutation was detected 43.4%, KIT mutation not detected. 46XY 10/06: 2 units pRBC today. plan to do bone marrow biopsy AM. 10/05: 1 unit platelets today 10/04: D9. no fever. 10/03: D8. no transfusion. monitor for fever 10/02: Will give 1 unit PRBC's, platelets today. Plan for repeat BMB on 10/10. 10/01: Finished chemotherapy yesterday. Tolerated well. 1 unit irradiated PRBC's to be transfused today. Continue to closely monitor blood counts. 09/30: D5. last day of chemotherapy. will give 1 unit platelets. 09/29: D4. continue chemotherapy. no transfusion. 09/28: D3. 09/27: D2 09/26: Start on CLAG-M chemotherapy for relapsed AML. Received Neupogen yesterday. He spiked a fever this afternoon of 101.3. BC, UA, and CXR ordered. Will start pt on Cefepime. Await BC results. -- He has been getting CBC q2 weeks. On 09/18 it was noted that he had a white count at 11k and a platelet count of 76k. Blasts were at 38%. He was brought in to the clinic on 09/24 for a bone marrow biopsy. A CBC was done and showed a white count of 63.7, Hgb 12.2, and platelet count was 33K. The blasts were at 73 %. Decision was made at that time to admit for salvage chemo. History: 11/04/16: AML Diagnosis made. 46XY, +NPM1 mutation detected, FLT3 negative-- indicates favorable prognosis. 11/05-11/28: Initial induction with MELL-C and idarubicin (7+3). STAT Leukapheresis due to leukostasis. On D25, repeat bone marrow showed residual leukemia. 12/06-12/27: Re-induction with FLANG chemotherapy. Repeat bone marrow biopsy negative for residual AML. Patient in Complete Remission 01/06-01/10: C1 consolidation chemotherapy with Mell-C. 02/17-02/21: C2 consolidation chemotherapy with MELL-C. 03/25-03/30: C3 consolidation chemotherapy with MELL-C 04/28-05/02: C4 consolidation chemo with MELL-C (2) Hypertension Status: Acute Plan: -- Hold amlodipine, lisinopril, continue atenolol (3) Diabetes Status: Acute Plan: --on SSI Novolog (4) Fever Status: Acute Plan: -- BC no growth -- on prophylactic Levaquin + Diflucan -- CXR negative (5) DVT prophylaxis Status: Acute Plan: -- Thrombocytopenia; will hold off on chemical prophylaxis at this time. (6) Constipation Status: Acute Plan: --on Colace schedule --PRN laxative --PRN Relistor Assessment 46 y/o male admitted for salvage chemotherapy for relapsed AML. Attending Statement c/o dizziness and sore left cheek. Low grade fever last night. extensive d/w pt and family regarding further treatment plan. Day 14 BM bx tomorrow. The exam, history, and the medical decision-making described in the above note were completed with the assistance of the mid-level provider. I reviewed and agree with the findings presented. I attest that I had a [id number] encounter with the patient on the same day, and personally performed and documented my assessment and findings in the medical record. Problem Qualifiers (1) Diabetes: Qualified Code: E11.9 - Type 2 diabetes mellitus without complication, without long-term current use of insulin (2) Fever: Qualified Code: R50.9 - Fever, unspecified fever cause (3) Constipation: Qualified Code: K59.00 - Constipation, unspecified constipation type Coye,Janet Shaunna PA Oct 08, 2016 12:41 Alexandra Olea MD Oct 08, 2016 19:08
[2016-10-08] MEDS: ATENOLOL 100 MG TAB PO SCH (22:27)
[2016-10-08] MEDS: DIAZEPAM 10 MG TAB PO SCH (22:27)
[2016-10-08] MEDS: NYSTAT/DIPHENHY/LIDO MOUTHWASH (Adult) 120ML SWISH-SWAL SCH (23:10)
[2016-10-09] VITALS (18 sets, daily range): BP systolic 113–147; BP diastolic 60–83; PULSE 99–145; RESP 16–18; TEMP 98.1–103; O2SAT 97–100
[2016-10-09] MEDS: INSULIN ASPART SUPPLEMENTAL SCALE SQ SCH ×4 (06:17→20:00)
[2016-10-09 06:51] LABS: HEMATOCRIT 21.4 % (39.0-51.0); MEAN CORPUSCULAR HEMOGLOBIN 28.8 PG (27.0-34.0); MEAN CORPUSCULAR HGB CONC 34.7 % (32.0-36.0); RED BLOOD COUNT 2.58 MIL/MM3 (4.50-5.90); RED CELL DISTRIBUTION WIDTH 15.8 % (11.6-17.2); WHITE BLOOD COUNT 0.1 TH/MM3 (4.0-11.0)
[2016-10-09 06:59] LABS: HEMO FLAGS AUTO DIFF
[2016-10-09] MEDS ORDERED: HYDROmorphone HCL PF 1 MG/ML VIAL IV PUSH ONE (07:00)
[2016-10-09 07:01] LABS: PLATELET COUNT 12 TH/MM3 (150-450)
[2016-10-09] MEDS ORDERED: LIDOCAINE HCL 2% 50 ML VIAL ONE (07:10)
[2016-10-09] MEDS ORDERED: LIDOCAINE HCL 2% 20 ML VIAL INFIL ONE (07:15)
[2016-10-09] MEDS ORDERED: diphenhydrAMINE HCL 25 MG CAP PO PRN (07:15)
[2016-10-09] MEDS ORDERED: DIAZEPAM 10 MG TAB PO ONE (07:15)
[2016-10-09] MEDS ORDERED: LIDOCAINE 1%/EPINEPHrine 1:100,000 SOLN 20 ML VIAL INFIL ONE (07:15)
[2016-10-09] MEDS ORDERED: SODIUM CHLOR 0.9% 250 ML INJ 250 ML IV ONE ×2 (07:15)
[2016-10-09] MEDS ORDERED: ACETAMINOPHEN 325 MG TAB PO PRN (07:15)
[2016-10-09] MEDS ORDERED: LIDOCAINE 2%/EPINEPHrine 1:100,000 30ML MDV INFIL ONE (07:15)
[2016-10-09] MEDS: SODIUM CHLORIDE 10 ML FLUSH BID IVF SCH ×2 (07:31→20:39)
[2016-10-09] MEDS: DOCUSATE SODIUM 100 MG CAP PO SCH ×3 (07:34→16:28)
[2016-10-09 08:14] LABS: BONE MARROW PROCESSING COMPLETE; IRON STAIN DONE; JENNER GIEMSA STAIN DONE
[2016-10-09] MEDS: DEXTROAMPHETAMINE/AMPHETAMINE XR 15 MG CAP PO SCH (08:50)
[2016-10-09] MEDS: NYSTAT/DIPHENHY/LIDO MOUTHWASH (Adult) 120ML SWISH-SWAL SCH ×4 (08:50→21:45)
[2016-10-09] MEDS: SERTRALINE HCL 50 MG TAB PO SCH (08:50)
[2016-10-09] MEDS: FLUCONAZOLE 200 MG TAB PO SCH (08:50)
[2016-10-09 08:59] LABS: PLATELET ESTIMATE SMEAR LOW (NORMAL); WBC DIFF SAMPLE 20
[2016-10-09 09:00] LABS: PLATELET MORPHOLOGY NORMAL (NORMAL); SCAN/DIFF FINAL DIFF MANUAL
[2016-10-09] MEDS: ACETAMINOPHEN 325 MG TAB PO PRN ×4 (09:02→22:45)
[2016-10-09] MEDS: SODIUM CHLOR 0.9% 250 ML INJ 250 ML IV SCH ×2 (10:35→20:00)
[2016-10-09] MEDS: LEVOFLOXACIN 500 MG TAB PO SCH (10:55)
[2016-10-09] MEDS: CEFEPIME INJ 2,000 MG in SODIUM CHLORIDE 0.9% INJ 100 ML IV SCH ×2 (10:55→18:00)
--- NOTE | 2016-10-09 12:00 | RADRPT ---
EXAM DATE/TIME: 10/09/2016 11:31 [facility] COMPARISON: CHEST SINGLE AP, September 26, 2016, 13:59. INDICATIONS : Fever MEDICAL HISTORY : Hypertension. Diabetes mellitus type II. Leukemia. SURGICAL HISTORY : None. ENCOUNTER: Subsequent ACUITY: 3 weeks PAIN SCORE: 0/10 LOCATION: Bilateral chest FINDINGS: A single view of the chest demonstrates the lungs to be symmetrically aerated without evidence of mas s, infiltrate or effusion. The cardiomediastinal contours are unremarkable. Osseous structures are intact. Acrusw-c-Dvix catheter tip in mid superior vena cava. CONCLUSION: The lungs are clear. Isai Blanco MD on October 09, 2016 at 11:56 Board Certified Radiologist. This report was verified electronically.
--- NOTE | 2016-10-09 12:31 | PD.ONC.PN ---
Subjective Subjective Remarks Tmax 100.8 this AM. Patient denies cough or urinary symptoms. He feels well without complaint. He is excited the bone marrow biopsy is being done today. Objective Data Date Time Temp Pulse Resp B/P Pulse Ox O2 Delivery O2 Flow Rate FiO2 10/09/16 10:07 99.6 107 16 118/74 98 10/09/16 08:00 100.8 104 18 133/79 98 10/09/16 05:58 98.8 105 18 117/69 100 10/09/16 00:00 98.8 99 18 125/74 99 10/08/16 20:00 98.0 107 17 148/78 100 10/08/16 16:00 98.7 108 16 142/83 99 Result Diagram: 10/09/16 0550 10/06/16 0520 Laboratory Results Laboratory Tests Test 10/09/16 10/09/16 10/09/16 05:50 07:07 07:35 White Blood Count 0.1 TH/MM3 Red Blood Count 2.58 MIL/MM3 Hemoglobin 7.4 GM/DL Hematocrit 21.4 % Mean Corpuscular Volume 83.0 FL Mean Corpuscular Hemoglobin 28.8 PG Mean Corpuscular Hemoglobin 34.7 % Concent Red Cell Distribution Width 15.8 % Platelet Count 12 TH/MM3 Mean Platelet Volume 7.3 FL Neutrophils (%) (Auto) % Lymphocytes (%) (Auto) % Monocytes (%) (Auto) % Eosinophils (%) (Auto) % Basophils (%) (Auto) % Neutrophils # (Auto) TH/MM3 Lymphocytes # (Auto) TH/MM3 Monocytes # (Auto) TH/MM3 Eosinophils # (Auto) TH/MM3 Basophils # (Auto) TH/MM3 CBC Comment AUTO DIFF Differential Total Cells 20 Counted Lymphocytes % 100 % Differential Comment FINAL DIFF MANUAL Platelet Estimate LOW Platelet Morphology Comment NORMAL Blood Bank Comment Blood Type O POSITIVE Antibody Screen NEGATIVE Crossmatch Irradiated/Leukocyte-Reduced RBC Culture Results Microbiology Date/Time Procedure Status Source Growth 10/09/16 09:00 Aerobic Blood Culture Received Blood Line Pending 10/09/16 09:00 Anaerobic Blood Culture Received Blood Line Pending 10/09/16 09:59 Aerobic Blood Culture Received Blood Peripheral Pending 10/09/16 09:59 Anaerobic Blood Culture Received Blood Peripheral Pending Imaging Studies Last 24 hours Impressions Chest X-Ray 10/09/16 0000 Signed Impressions: Service Date/Time: October 11:31 - CONCLUSION: The lungs are clear. Isai Blanco MD Administered Medications Medications (Trade) Dose Ordered Sig/Génesis Route PRN Reason Start Time Stop Time Status Last Admin Dose Admin Acetaminophen (Tylenol) 650 mg Q4H PRN PO PAIN SCALE 0-3 OR TEMP> 100.5F 09/25/16 08:45 09/27/16 05:56 Oxycodone HCl (Roxicodone) 10 mg Q3H PRN PO PAIN SCALE 8 TO 10 09/25/16 08:45 09/30/16 12:12 Sertraline HCl (Zoloft) 50 mg DAILY PO 09/26/16 09:00 10/09/16 08:50 Oxycodone HCl (Roxicodone) 5 mg QID PO 09/25/16 13:00 10/01/16 13:49 Sodium Chloride 2 ml 2 ml BID IVF 09/25/16 21:00 10/09/16 07:31 Ondansetron HCl/ Dextrose (Zofran Inj/D5W Inj) 54 ml @ 216 mls/hr Q8H PRN IV PUSH NAUSEA OR VOMITING 09/25/16 10:30 09/27/16 02:13 Atenolol (Tenormin) 100 mg DAILY@2100 PO 09/25/16 21:00 10/08/16 22:27 Docusate Sodium 100 mg 100 mg TID PO 09/25/16 18:00 10/05/16 18:35 Sodium Chloride 250 ml @ 100 mls/hr Q24H IV 09/26/16 13:00 09/30/16 13:26 Sodium Chloride (NS 250 ml Inj) 250 ml @ 100 mls/hr Q24H IV 09/26/16 20:00 09/30/16 18:03 Amphetamine/ Dextroamphetamine (Adderall Xr) 15 mg DAILY PO 09/27/16 09:00 10/09/16 08:50 Lisinopril (Prinivil) 10 mg DAILY PO 09/28/16 09:00 Hold 09/30/16 09:22 Fluconazole (Diflucan) 200 mg DAILY PO 09/27/16 13:00 10/09/16 08:50 Amlodipine Besylate (Norvasc) 5 mg DAILY PO 09/29/16 09:00 Hold 09/30/16 09:22 Levofloxacin (Levaquin) 500 mg DAILY@11 PO 10/01/16 11:00 10/09/16 10:55 Acetaminophen (Tylenol) 650 mg Q4H PRN PO FOR BLOOD PRODUCTS 09/30/16 22:00 10/09/16 09:02 Diphenhydramine HCl (Benadryl) 25 mg Q4H PRN PO FOR BLOOD PRODUCTS 09/30/16 22:00 10/08/16 09:29 Multi-Ingredient Mouthwash/Gargle 5 ml 5 ml QID SWISH-SWAL 10/08/16 21:00 10/15/16 19:09 10/09/16 08:50 Sodium Chloride 250 ml @ 15 mls/hr ONCE ONCE IV 10/09/16 07:15 10/09/16 23:54 10/09/16 10:05 Cefepime HCl/ Sodium Chloride (Maxipime Inj/NS Inj) 100 ml @ 200 mls/hr Q8H IV 10/09/16 11:00 10/09/16 10:55 Objective Remarks GENERAL: Pleasant middle aged male, lying in bed in [facility]. SKIN: Warm and dry. bruise over right iliac crest HEAD: Normocephalic. EYES: No injection or drainage. NECK: Supple, trachea midline. CARDIOVASCULAR: Regular rate and rhythm RESPIRATORY: Breath sounds equal bilaterally. No accessory muscle use. GASTROINTESTINAL: Abdomen soft, non-tender, nondistended. EXTREMITIES: No cyanosis NEUROLOGICAL: No obvious focal deficit. Awake, alert, and oriented x3. Assessment/Plan Problem List: (1) AML (acute myeloid leukemia) Status: Acute Plan: 10/09: bone marrow biopsy today. 1 unit platelets, 2 units pRBC 10/08: day 13. 1 unit platelets. bone marrow biopsy tomorrow. 10/07: flow cytometry results returned showing NPM1 + and FLT3 +. I obtained the original pathology again from to double check and the original FLT3 was NEGATIVE. NPM1 mutation was detected 43.4%, KIT mutation not detected. 46XY 10/06: 2 units pRBC today. plan to do bone marrow biopsy AM. 2: 1 unit platelets today 10/04: D9. no fever. 10/03: D8. no transfusion. monitor for fever 10/02: Will give 1 unit PRBC's, platelets today. Plan for repeat BMB on 10/10. 10/01: Finished chemotherapy yesterday. Tolerated well. 1 unit irradiated PRBC's to be transfused today. Continue to closely monitor blood counts. 09/30: D5. last day of chemotherapy. will give 1 unit platelets. 09/29: D4. continue chemotherapy. no transfusion. 09/28: D3. 09/27: D2 09/26: Start on CLAG-M chemotherapy for relapsed AML. Received Neupogen yesterday. He spiked a fever this afternoon of 101.3. BC, UA, and CXR ordered. Will start pt on Cefepime. Await BC results. -- He has been getting CBC q2 weeks. On 09/18 it was noted that he had a white count at 11k and a platelet count of 76k. Blasts were at 38%. He was brought in to the clinic on 09/24 for a bone marrow biopsy. A CBC was done and showed a white count of 63.7, Hgb 12.2, and platelet count was 33K. The blasts were at 73 %. Decision was made at that time to admit for salvage chemo. History: 11/04/16: AML Diagnosis made. 46XY, +NPM1 mutation detected, FLT3 negative-- indicates favorable prognosis. 11/05-11/28: Initial induction with MELL-C and idarubicin (7+3). STAT Leukapheresis due to leukostasis. On D25, repeat bone marrow showed residual leukemia. 12/06-12/27: Re-induction with FLANG chemotherapy. Repeat bone marrow biopsy negative for residual AML. Patient in Complete Remission 01/06-01/10: C1 consolidation chemotherapy with Mell-C. 02/17-02/21: C2 consolidation chemotherapy with MELL-C. 03/25-03/30: C3 consolidation chemotherapy with MELL-C 04/28-05/02: C4 consolidation chemo with MELL-C (2) Hypertension Status: Acute Plan: -- Hold amlodipine, lisinopril, continue atenolol (3) Diabetes Status: Acute Plan: --on SSI Novolog (4) Fever Status: Acute Plan: -- BC pending -- on Levaquin + Diflucan and started on Cefepime -- CXR negative --u/a neg (5) DVT prophylaxis Status: Acute Plan: -- Thrombocytopenia; will hold off on chemical prophylaxis at this time. (6) Constipation Status: Acute Plan: --on Colace schedule --PRN laxative --PRN Relistor Assessment 46 y/o male admitted for salvage chemotherapy for relapsed AML. Attending Statement no c/o feels better. PRBC and palt today. BM bx today. Tolerated well. Develop fever later in the morning. consult ID for NF. The exam, history, and the medical decision-making described in the above note were completed with the assistance of the mid-level provider. I reviewed and agree with the findings presented. I attest that I had a [id number] encounter with the patient on the same day, and personally performed and documented my assessment and findings in the medical record. Procedure Note Procedure Bone marrow Aspiration and Biopsy Procedure Performed by: Dr. Katlin Olea and Janet Holm PA-C Risks and benefits of the procedure were discussed with the patient. Consent was obtained and signed by the patient. The patient was given Valium 10mg PO as pre-medication. The patient was placed in the right lateral decubitus position. Sterile technique was followed. The site was prepped with Betadine and sterilely draped. Approximately 10 cc 1% lidocaine was used for local anesthesia and the patient was given Dilaudid 1mg IV push for pain during the procedure. Bone marrow aspiration and biopsy were obtained from the left posterior iliac crest. The patient tolerated the procedure without complications and with minimal pain. Problem Qualifiers (1) Diabetes: Qualified Code: E11.9 - Type 2 diabetes mellitus without complication, without long-term current use of insulin (2) Fever: Qualified Code: R50.9 - Fever, unspecified fever cause (3) Constipation: Qualified Code: K59.00 - Constipation, unspecified constipation type Janet Holm Oct 09, 2016 12:31 Alexandra Olea MD Oct 09, 2016 18:18
[2016-10-09 13:52] LABS: BLOOD, URINE NEG (NEG); GLUCOSE,URINE 1000 mg/dL (NEG); KETONE, URINE NEG (NEG); MUCUS URINE FEW /lpf (OCC); NITRITE,URINE NEG (NEG); URINE COLOR YELLOW (YELLW/STRAW)
[2016-10-09 13:54] LABS: COMMENT (UR) CULT NOT INDICATED; CULTURE IF INDICATED CULT NOT INDICATED
[2016-10-09] MEDS ORDERED: SODIUM CHLOR 0.9% 1000 ML INJ 1,000 ML IV SCH (18:00)
[2016-10-09] MEDS: MICAFUNGIN INJ 150 MG in SODIUM CHLORIDE 0.9% INJ 100 ML IV SCH (20:30)
[2016-10-09] MEDS: DAPTOmycin INJ 800 MG in SODIUM CHLORIDE 0.9% INJ 100 ML IV SCH (20:31)
--- NOTE | 2016-10-09 20:36 | PD.CONS ---
HPI Service Critical Care Medicine Consult Requested By Primary Care Physician Forrest Phillips MD History of Present Illness 46-year-old gentleman with acute myeloid leukemia treated in 2016 and now returns with a relapse of disease. He was admitted to hematology oncology floor , today he developed fevers to 103 and is transferred to ICU for closer monitoring and observation. Review of Systems Constitutional: COMPLAINS OF: Diaphoretic episodes, Fatigue, Fever, DENIES: Weight gain, Weight loss, Chills, Dizziness, Change in appetite, Night Sweats Eyes: DENIES: Blurred vision, Diplopia, Eye inflammation, Eye pain, Vision loss , Photosensitivity, Double Vision Ears, nose, mouth, throat: DENIES: Tinnitus, Hearing loss, Vertigo, Nasal discharge, Oral lesions, Throat pain, Hoarseness, Ear Pain, Running Nose, Epistaxis, Sinus Pain, Toothache, Odynophagia Respiratory: DENIES: Apneas, Cough, Snoring, Wheezing, Hemoptysis, Sputum production, Shortness of breath Cardiovascular: DENIES: Chest pain, Palpitations, Syncope, Dyspnea on Exertion , PND, Lower Extremity Edema, Orthopnea, Claudication Gastrointestinal: DENIES: Abdominal pain, Black stools, Bloody stools, Constipation, Diarrhea, Nausea, Vomiting, Difficulty Swallowing, Anorexia Genitourinary: DENIES: Sexual dysfunction, Urinary frequency, Urinary incontinence, Urgency, Hematuria, Dysuria, Nocturia, Penile Discharge, Testicular Pain, Testicular Swelling Musculoskeletal: DENIES: Joint pain, Muscle aches, Stiffness, Joint Swelling, Back pain, Neck pain Integumentary: DENIES: Abnormal pigmentation, Nail changes, Pruritus, Rash Hematologic/lymphatic: DENIES: Bruising, Lymphadenopathy Past Family Social History Allergies: Coded Allergies: Vancomycin (Verified Allergy, Severe, Rash, 04/28/16) Past Medical History 1. ADHD. 2. Hemochromatosis. 3. Hypercholesterolemia. 4. Acute myeloid leukemia diagnosed in October last year. 5. Anxiety disorder. Past Surgical History 1. Ejwfdm-[id number] placement. 2. Tonsillectomy. 3. Undescended testis. 4. Colonoscopy. 5. Cardiac catheterization. 6. Anal sphincterotomy. Reported Medications Reported Meds & Active Scripts Active Levaquin (Levofloxacin) 750 Mg Tab 750 Mg PO DAILY 7 Days Reported Multi Vitamin (Multiple Vitamin) 1 Tab Tab 1 Tab PO DAILY Oxycodone-Acetaminophen 5-325 mg Tab 1 Tab PO Q4H PRN Oxycodone (Oxycodone HCl) 5 Mg Cap 5 Mg PO Q4HR Diazepam 10 Mg Tab 10 Mg PO HS PRN Amlodipine (Amlodipine Besylate) 10 Mg Tab 10 Mg PO DAILY Exjade (Deferasirox) 500 Mg Tab Mg PO DAILY Do not chew/swallow tablets whole. Completely disperse tablets in water, orange or apple juice (use 3.5 ounces for total doses <1 g; 7 ounces for doses =1 g). Sertraline (Sertraline HCl) 50 Mg Tab 50 Mg PO DAILY Oxycodone (Oxycodone HCl) 5 Mg Cap 5 Mg PO Q4H PRN take 1 to 2 every 4 hours as need for pain [stool softenr] 2 Tab PO DAILY Metformin (Metformin HCl) 850 Mg Tab 850 Mg PO BIDPC With meals Lisinopril 10 Mg Tab 10 Mg PO BID Atenolol 100 Mg Tab 100 Mg PO DAILY Active Ordered Medications Current Medications Medications (Trade) Dose Ordered Sig/Génesis Route PRN Reason Start Time Stop Time Status Last Admin Dose Admin Acetaminophen (Tylenol) 650 mg Q4H PRN PO PAIN SCALE 0-3 OR TEMP> 100.5F 09/25/16 08:45 10/09/16 22:45 Oxycodone HCl (Roxicodone) 5 mg Q3H PRN PO PAIN SCALE 4 TO 7 09/25/16 08:45 10/09/16 18:01 Oxycodone HCl (Roxicodone) 10 mg Q3H PRN PO PAIN SCALE 8 TO 10 09/25/16 08:45 09/30/16 12:12 Heparin Sodium (Porcine) (Heparin Central Flush) 500 units UNSCH IVF 09/25/16 08:45 Sodium Chloride (NS Flush) 5 ml UNSCH PRN IVF SEE PROTOCOL 09/25/16 08:45 Heparin Sodium (Porcine) (Heparin Central Flush) 250 units UNSCH PRN IVF SEE PROTOCOL 09/25/16 08:45 Morphine Sulfate (Morphine Inj) 4 mg Q2H PRN IV PAIN SCALE 8 TO 10 09/25/16 10:15 Morphine Sulfate (Morphine Inj) 8 mg Q2H PRN IV PUSH PAIN SCALE 8 TO 10 09/25/16 10:15 Sertraline HCl (Zoloft) 50 mg DAILY PO 09/26/16 09:00 10/09/16 08:50 Miscellaneous Medication ([facility] Information) FOR PATIENTS W... UNSCH PRN XX SEE LABEL COMMENTS 09/25/16 10:15 Sodium Chloride (NS Flush) 2 ml BID IVF 09/25/16 21:00 10/09/16 20:39 Sodium Chloride (NS Flush) 2 ml UNSCH PRN IVF FLUSH AFTER USING IV ACCESS 09/25/16 10:15 Magnesium Hydroxide (Milk Of Magnesia Liq) 15 ml DAILY PRN PO CONSTIPATION 09/25/16 10:15 Promethazine HCl (Phenergan) 25 mg Q4H PRN PO NAUSEA OR VOMITING 09/25/16 10:15 Prochlorperazine Maleate (Compazine) 10 mg Q4H PRN PO NAUSEA OR VOMITING 09/25/16 10:15 Prochlorperazine Edisylate (Compazine Inj) 10 mg Q4H PRN IV NAUSEA OR VOMITING 09/25/16 10:15 Loperamide HCl (Imodium) 2 mg UNSCH PRN PO AFTER EACH LOOSE STOOL 09/25/16 10:15 Al Hydrox/Mg Hydrox/Simethicone (Mag-Al Plus Susp Liq) 30 ml Q4H PRN PO INDIGESTION 09/25/16 10:15 Alteplase, Recombinant 2 mg 2 mg UNSCH PRN IVF SEE LABEL COMMENTS 09/25/16 10:15 Ondansetron HCl/ Dextrose (Zofran Inj/D5W Inj) 54 ml @ 216 mls/hr Q8H PRN IV PUSH NAUSEA OR VOMITING 09/25/16 10:30 09/27/16 02:13 Atenolol (Tenormin) 100 mg DAILY@2100 PO 09/25/16 21:00 10/09/16 21:45 Docusate Sodium 100 mg 100 mg TID PO 09/25/16 18:00 10/05/16 18:35 Sodium Chloride 250 ml @ 100 mls/hr Q24H IV 09/26/16 13:00 09/30/16 13:26 Sodium Chloride (NS 250 ml Inj) 250 ml @ 100 mls/hr Q24H IV 09/26/16 20:00 09/30/16 18:03 Amphetamine/ Dextroamphetamine (Adderall Xr) 15 mg DAILY PO 09/27/16 09:00 10/09/16 08:50 Bisacodyl (Dulcolax Ec) 5 mg DAILY PRN PO CONSTIPATION 09/26/16 14:45 Lisinopril (Prinivil) 10 mg DAILY PO 09/28/16 09:00 Hold 09/30/16 09:22 Fluconazole (Diflucan) 200 mg DAILY PO 09/27/16 13:00 10/09/16 08:50 Amlodipine Besylate (Norvasc) 5 mg DAILY PO 09/29/16 09:00 Hold 09/30/16 09:22 Dextrose (D50w (Vial) Inj) 25 ml UNSCH PRN IV PUSH HYPOGLYCEMIA-SEE COMMENTS 09/29/16 10:45 Glucagon (Glucagon Inj) 1 mg UNSCH PRN OTHER HYPOGLYCEMIA-SEE COMMENTS 09/29/16 10:45 Acetaminophen (Tylenol) 650 mg Q4H PRN PO FOR BLOOD PRODUCTS 09/30/16 22:00 10/09/16 14:01 Diphenhydramine HCl (Benadryl) 25 mg Q4H PRN PO FOR BLOOD PRODUCTS 09/30/16 22:00 10/08/16 09:29 Multi-Ingredient Mouthwash/Gargle (Magic Mouthwash Adult Liq) 5 ml QID SWISH-SWAL 10/08/16 21:00 10/15/16 19:09 10/09/16 21:45 Diazepam 10 mg 10 mg Q8HR PRN PO ANXIETY 10/09/16 07:01 Sodium Chloride 250 ml @ 15 mls/hr ONCE ONCE IV 10/09/16 07:15 10/09/16 23:54 10/09/16 10:05 Sodium Chloride 250 ml @ 15 mls/hr ONCE ONCE IV 10/09/16 07:15 10/09/16 23:54 10/09/16 12:28 Cefepime HCl 2000 mg/Sodium Chloride 100 ml @ 200 mls/hr Q8H IV 10/09/16 11:00 10/09/16 18:00 Daptomycin 800 mg/ Sodium Chloride 100 ml @ 200 mls/hr Q24H IV 10/09/16 20:00 10/09/16 20:31 Micafungin Sodium 150 mg/Sodium Chloride 100 ml @ 100 mls/hr Q24H IV 10/09/16 20:00 10/09/16 20:30 Sodium Chloride (NS 1000 ml Inj) 1,000 ml @ 125 mls/hr Q8H IV 10/09/16 21:00 10/09/16 21:00 Family History Noncontributory Social History Negative 3 Physical Exam Vital Signs Vital Signs Date Time Temp Pulse Resp B/P Pulse Ox O2 Delivery O2 Flow Rate FiO2 10/09/16 18:48 103.0 10/09/16 17:15 103.0 144 16 130/83 100 10/09/16 16:50 102.5 140 98 10/09/16 16:00 102.9 145 18 113/74 99 10/09/16 15:07 102.5 10/09/16 14:26 99.7 10/09/16 12:45 98.1 108 16 133/75 100 10/09/16 12:29 98.2 107 18 129/83 98 10/09/16 10:40 100.8 110 16 113/60 97 10/09/16 10:07 99.6 107 16 118/74 98 10/09/16 08:00 100.8 104 18 133/79 98 10/09/16 05:58 98.8 105 18 117/69 100 10/09/16 00:00 98.8 99 18 125/74 99 Physical Exam GENERAL: Well-nourished, well-developed patient. SKIN: Warm and dry. HEAD: Normocephalic. EYES: No scleral icterus. No injection or drainage. NECK: Supple, trachea midline. No JVD or lymphadenopathy. CARDIOVASCULAR: Regular rate and rhythm without murmurs, gallops, or rubs. RESPIRATORY: Breath sounds equal bilaterally. No accessory muscle use. GASTROINTESTINAL: Abdomen soft, non-tender, nondistended. MUSCULOSKELETAL: No cyanosis, or edema. BACK: Nontender without obvious deformity. No CVA tenderness. EXTREMITIES: No clubbing cyanosis or edema Laboratory Laboratory Tests Test 10/09/16 10/09/16 10/09/16 10/09/16 05:50 07:07 07:35 11:50 White Blood Count 0.1 Red Blood Count 2.58 Hemoglobin 7.4 Hematocrit 21.4 Mean Corpuscular Volume 83.0 Mean Corpuscular Hemoglobin 28.8 Mean Corpuscular Hemoglobin 34.7 Concent Red Cell Distribution Width 15.8 Platelet Count 12 Mean Platelet Volume 7.3 Neutrophils (%) (Auto) Lymphocytes (%) (Auto) Monocytes (%) (Auto) Eosinophils (%) (Auto) Basophils (%) (Auto) Neutrophils # (Auto) Lymphocytes # (Auto) Monocytes # (Auto) Eosinophils # (Auto) Basophils # (Auto) CBC Comment AUTO DIFF Differential Total Cells 20 Counted Lymphocytes % 100 Differential Comment FINAL DIFF MANUAL Platelet Estimate LOW Platelet Morphology Comment NORMAL Blood Bank Comment Blood Type O POSITIVE Antibody Screen NEGATIVE Crossmatch Irradiated/Leukocyte-Reduced RBC Urine Color YELLOW Urine Turbidity CLEAR Urine pH 6.0 Urine Specific [place] 1.016 Urine Protein NEG Urine Glucose (UA) 1000 Urine Ketones NEG Urine Occult Blood NEG Urine Nitrite NEG Urine Bilirubin NEG Urine Urobilinogen LESS THAN 2.0 Urine Leukocyte Esterase NEG Urine RBC LESS THAN 1 Urine WBC 2 Urine Mucus FEW Microscopic Urinalysis Comment CULT NOT INDICATED Date/Time Procedure Status Source Growth 10/09/16 09:59 Aerobic Blood Culture Received Blood Peripheral Pending 10/09/16 09:59 Anaerobic Blood Culture Received Blood Peripheral Pending Result Diagram: 10/09/16 0550 10/06/16 0520 Imaging Last 24 hours Impressions Chest X-Ray 10/09/16 0000 Signed Impressions: Service Date/Time: October 11:31 - CONCLUSION: The lungs are clear. Isai Blanco MD Assessment and Plan Assessment and Plan Neutropenic fever - Pancultured - Broad-spectrum antibiotics - Daptomycin cefepime and micafungin - ID Dr. Galarza following Acute myeloid leukemia - Chemotherapy per Dr. Olea - Considering bone marrow transplant [facility] Hypertension - Hold lisinopril due to impaired renal function - Continue atenolol - Hold Norvasc due to borderline blood pressure Diabetes mellitus - Insulin sliding scale Depressions - Sertraline DVT GI prophylaxis - Teds SCDs early aggressive mobilization - No pharmacological prophylaxis due to low platelet count - 1999 ADA diet Critical Care: The total critical care time was 35 minutes. Time to perform other separately billable procedures was not included in the critical care time. Willem Del Rio MD Oct 09, 2016 20:35
[2016-10-09] MEDS: SODIUM CHLOR 0.9% 1000 ML INJ 1,000 ML IV SCH (21:00)
[2016-10-09] MEDS: ATENOLOL 100 MG TAB PO SCH (21:45)
[2016-10-10] VITALS (7 sets, daily range): BP systolic 86–138; BP diastolic 42–77; PULSE 100–123; RESP 12–18; TEMP 97.7–101.9; O2SAT 98–99
[2016-10-10] MEDS: DIAZEPAM 10 MG TAB PO PRN ×2 (01:05→22:42)
[2016-10-10] MEDS: CEFEPIME INJ 2,000 MG in SODIUM CHLORIDE 0.9% INJ 100 ML IV SCH ×3 (03:00→20:54)
[2016-10-10] MEDS: ACETAMINOPHEN 325 MG TAB PO PRN ×4 (04:28→21:16)
[2016-10-10] MEDS: SODIUM CHLOR 0.9% 1000 ML INJ 1,000 ML IV SCH ×3 (05:00→15:55)
[2016-10-10 05:11] LABS: HEMO FLAGS AUTO DIFF; MEAN CORPUSCULAR HEMOGLOBIN 28.8 PG (27.0-34.0); MEAN CORPUSCULAR HGB CONC 35.2 % (32.0-36.0); RED BLOOD COUNT 2.54 MIL/MM3 (4.50-5.90); RED CELL DISTRIBUTION WIDTH 15.6 % (11.6-17.2); WHITE BLOOD COUNT 0.1 TH/MM3 (4.0-11.0)
[2016-10-10 05:21] LABS: HEMATOCRIT 20.8 % (39.0-51.0); PLATELET COUNT 12 TH/MM3 (150-450)
[2016-10-10 05:40] LABS: ALKALINE PHOSPHATASE 99 U/L (45-117); ALT (GPT) 11 U/L (12-78); ANION GAP 7 MEQ/L (5-15); AST (GOT) LESS THAN 3 U/L (15-37); BICARBONATE 27.9 MEQ/L (21.0-32.0); BLOOD UREA NITROGEN 8 MG/DL (7-18); CHLORIDE 100 MEQ/L (98-107); GLOMERULAR FILTRATION RATE 159 ML/MIN (>89); POTASSIUM 3.4 MEQ/L (3.5-5.1); SODIUM (NA) 135 MEQ/L (136-145)
[2016-10-10 06:48] LABS: WBC DIFF SAMPLE 20
[2016-10-10 06:50] LABS: PLATELET ESTIMATE SMEAR RARE (NORMAL)
[2016-10-10 06:51] LABS: PLATELET MORPHOLOGY NORMAL (NORMAL); SCAN/DIFF FINAL DIFF MANUAL
[2016-10-10] MEDS ORDERED: diphenhydrAMINE HCL 25 MG CAP PO SCH (07:00)
[2016-10-10] MEDS ORDERED: ACETAMINOPHEN 325 MG TAB PO SCH (07:00)
[2016-10-10] MEDS: diphenhydrAMINE HCL 25 MG CAP PO PRN (08:00)
[2016-10-10] MEDS: INSULIN ASPART SUPPLEMENTAL SCALE SQ SCH ×4 (09:08→21:00)
[2016-10-10] MEDS: SODIUM CHLORIDE 10 ML FLUSH BID IVF SCH ×2 (09:08→20:55)
[2016-10-10] MEDS: SERTRALINE HCL 50 MG TAB PO SCH (09:09)
[2016-10-10] MEDS: DEXTROAMPHETAMINE/AMPHETAMINE XR 15 MG CAP PO SCH (09:09)
[2016-10-10] MEDS: FLUCONAZOLE 200 MG TAB PO SCH (09:09)
[2016-10-10] MEDS: DOCUSATE SODIUM 100 MG CAP PO SCH ×3 (09:09→17:17)
[2016-10-10] MEDS: NYSTAT/DIPHENHY/LIDO MOUTHWASH (Adult) 120ML SWISH-SWAL SCH ×4 (09:10→20:53)
--- NOTE | 2016-10-10 12:39 | HHI.CCPN ---
Subjective Remarks/Hospital Course 46-year-old gentleman with acute myeloid leukemia treated in 2016 and now returns with a relapse of disease. He was admitted to hematology oncology floor , today he developed fevers to 103 and is transferred to ICU for closer monitoring and observation. 10/10 Patient is lying in bed in NAD. Tmax 102.1 last night BP is better. Patient was given 1u PRBC and 10 unit PLT this morning. Objective Vital Signs Date Time Temp Pulse Resp B/P Pulse Ox O2 Delivery O2 Flow Rate FiO2 10/10/16 11:00 100 10/10/16 11:00 98.2 18 106/63 99 Intake and Output 10/09/16 10/09/16 10/10/16 08:00 16:00 00:00 Intake Total 1594 ml Balance 1594 ml Result Diagram: 10/10/16 0417 10/10/16 0412 Other Results Laboratory Tests Test 10/10/16 10/10/16 10/10/16 04:12 04:17 07:05 Sodium Level 135 MEQ/L Potassium Level 3.4 MEQ/L Chloride Level 100 MEQ/L Carbon Dioxide Level 27.9 MEQ/L Anion Gap 7 MEQ/L Blood Urea Nitrogen 8 MG/DL Creatinine 0.55 MG/DL Estimat Glomerular Filtration 159 ML/MIN Rate Random Glucose 188 MG/DL Calcium Level 8.1 MG/DL Total Bilirubin 1.0 MG/DL Aspartate Amino Transf LESS THAN 3 U/L (AST/SGOT) Alanine Aminotransferase 11 U/L (ALT/SGPT) Alkaline Phosphatase 99 U/L Total Protein 5.9 GM/DL Albumin 3.0 GM/DL White Blood Count 0.1 TH/MM3 Red Blood Count 2.54 MIL/MM3 Hemoglobin 7.3 GM/DL Hematocrit 20.8 % Mean Corpuscular Volume 82.0 FL Mean Corpuscular Hemoglobin 28.8 PG Mean Corpuscular Hemoglobin 35.2 % Concent Red Cell Distribution Width 15.6 % Platelet Count 12 TH/MM3 Mean Platelet Volume 7.9 FL Neutrophils (%) (Auto) % Lymphocytes (%) (Auto) % Monocytes (%) (Auto) % Eosinophils (%) (Auto) % Basophils (%) (Auto) % Neutrophils # (Auto) TH/MM3 Lymphocytes # (Auto) TH/MM3 Monocytes # (Auto) TH/MM3 Eosinophils # (Auto) TH/MM3 Basophils # (Auto) TH/MM3 CBC Comment AUTO DIFF Differential Total Cells 20 Counted Lymphocytes % 100 % Neutrophils # (Manual) 0.0 TH/MM3 Differential Comment FINAL DIFF MANUAL Platelet Estimate RARE Platelet Morphology Comment NORMAL Crossmatch Irradiated/Leukocyte-Reduced RBC Blood Bank Comment Imaging Last Impressions Chest X-Ray 10/09/16 0000 Signed Impressions: Service Date/Time: October 11:31 - CONCLUSION: The lungs are clear. Isai Blanco MD Objective Remarks GENERAL: Well-nourished, well-developed patient. SKIN: Warm and dry. HEAD: Normocephalic. EYES: No scleral icterus. No injection or drainage. NECK: Supple, trachea midline. No JVD or lymphadenopathy. CARDIOVASCULAR:Tachycardic without murmurs, gallops, or rubs. RESPIRATORY: Breath sounds equal bilaterally. No accessory muscle use. GASTROINTESTINAL: Abdomen soft, non-tender, nondistended. MUSCULOSKELETAL: No cyanosis, or edema. BACK: Nontender without obvious deformity. No CVA tenderness. EXTREMITIES: No clubbing cyanosis or edema Neuro: Awake and alert A/P Assessment and Plan 1)Neutropenic fever 2)Acute myeloid leukemia 3)Pancytopenia 4)Hypokalemia 5)Hypertension 6)Diabetes mellitus 7)Depressions Neuro: Awake and alert Pulm: Oxygen PRN keep sat >92% CV: Monitor HR and BP keep MAP>65mmHg 09/25 Echo showed EF 45-50% : Monitor renal function, I/O's, electrolytes replacement per protocol. On NS@125ml/hr GI: On PO diet ID: Continue with abx per ID (Cefepime, Micafungin, Daptomycin) Monitor for signs of infections( Fever, WBC) follow up on cxs Discussed with Dr. Galarza Endo: On SSI with accuhecks Heme: Monitor CBC, coags s/p transfusion 1unit PRBC and 10u PLT this morning, Further transfusion per heme. GI prophylaxis- On PO diet no indication for GI prophylaxis DVT prophylaxis- SCD, not a candidate for AC prophylaxis due to thrombocytopenia Level 3 Falca Stover MD Oct 10, 2016 12:39
[2016-10-10] MEDS ORDERED: POTASSIUM CHLOR 40 MEQ PREMIX 100 ML IV PRN ×2 (12:45)
[2016-10-10] MEDS ORDERED: POTASSIUM CHLOR 20 MEQ PREMIX 100 ML IV PRN ×2 (12:45)
[2016-10-10] MEDS ORDERED: POTASSIUM PHOSPHATE MONOBASIC 500 MG TAB PO/TUBE PRN (12:45)
[2016-10-10] MEDS ORDERED: POTASSIUM PHOSPHATE INJ 30 MMOL in SODIUM CHLOR 0.9% 250 ML INJ 250 ML IV PRN (12:45)
[2016-10-10] MEDS ORDERED: MAGNESIUM SULFATE INJ 4 GM in SODIUM CHLORIDE 0.9% INJ 92 ML IV PRN (12:45)
[2016-10-10] MEDS ORDERED: MAGNESIUM SULFATE INJ 2 GM in SODIUM CHLORIDE 0.9% INJ 96 ML IV PRN (12:45)
[2016-10-10] MEDS ORDERED: MAGNESIUM OXIDE 400 MG TAB PO PRN (12:45)
[2016-10-10] MEDS: SODIUM CHLOR 0.9% 250 ML INJ 250 ML IV SCH ×2 (12:45→20:55)
[2016-10-10] MEDS ORDERED: SODIUM PHOSPHATE INJ 30 MMOL in SODIUM CHLOR 0.9% 250 ML INJ 240 ML IV PRN (12:45)
[2016-10-10] MEDS ORDERED: POTASSIUM PHOSPHATE MONOBASIC 500 MG TAB PO PRN (12:45)
--- NOTE | 2016-10-10 14:26 | PD.ONC.PN ---
Subjective Subjective Remarks Tmax 103F last night 6PM. Patient feeling tired today. Afebrile during the day today. No cough or urinary symptoms. Has some sciatica type pain down left leg. Objective Data Date Time Temp Pulse Resp B/P Pulse Ox O2 Delivery O2 Flow Rate FiO2 10/10/16 11:00 100 10/10/16 11:00 98.2 100 18 106/63 99 10/10/16 07:00 109 10/10/16 07:00 98.9 109 18 93/49 98 10/10/16 04:00 101.9 10/10/16 03:00 100.5 120 12 86/42 99 10/10/16 03:00 123 10/09/16 23:00 130 10/09/16 23:00 100.4 131 16 137/80 98 10/09/16 22:45 102.1 134 18 147/82 99 10/09/16 21:30 100.3 10/09/16 20:45 102.4 10/09/16 20:10 130 10/09/16 20:10 101.2 131 18 131/76 99 10/09/16 18:48 103.0 10/09/16 17:15 103.0 144 16 130/83 100 10/09/16 16:50 102.5 140 98 10/09/16 16:00 102.9 145 18 113/74 99 10/09/16 15:07 102.5 10/09/16 14:26 99.7 10/10/16 10/10/16 10/10/16 07:00 15:00 23:00 Intake Total 2172 ml Output Total 2950 ml Balance -778 ml Result Diagram: 10/10/16 0417 10/10/16 0412 Laboratory Results Laboratory Tests Test 10/10/16 10/10/16 10/10/16 04:12 04:17 07:05 Sodium Level 135 MEQ/L Potassium Level 3.4 MEQ/L Chloride Level 100 MEQ/L Carbon Dioxide Level 27.9 MEQ/L Anion Gap 7 MEQ/L Blood Urea Nitrogen 8 MG/DL Creatinine 0.55 MG/DL Estimat Glomerular Filtration 159 ML/MIN Rate Random Glucose 188 MG/DL Calcium Level 8.1 MG/DL Phosphorus Level 2.7 MG/DL Total Bilirubin 1.0 MG/DL Aspartate Amino Transf LESS THAN 3 U/L (AST/SGOT) Alanine Aminotransferase 11 U/L (ALT/SGPT) Alkaline Phosphatase 99 U/L Total Protein 5.9 GM/DL Albumin 3.0 GM/DL White Blood Count 0.1 TH/MM3 Red Blood Count 2.54 MIL/MM3 Hemoglobin 7.3 GM/DL Hematocrit 20.8 % Mean Corpuscular Volume 82.0 FL Mean Corpuscular Hemoglobin 28.8 PG Mean Corpuscular Hemoglobin 35.2 % Concent Red Cell Distribution Width 15.6 % Platelet Count 12 TH/MM3 Mean Platelet Volume 7.9 FL Neutrophils (%) (Auto) % Lymphocytes (%) (Auto) % Monocytes (%) (Auto) % Eosinophils (%) (Auto) % Basophils (%) (Auto) % Neutrophils # (Auto) TH/MM3 Lymphocytes # (Auto) TH/MM3 Monocytes # (Auto) TH/MM3 Eosinophils # (Auto) TH/MM3 Basophils # (Auto) TH/MM3 CBC Comment AUTO DIFF Differential Total Cells 20 Counted Lymphocytes % 100 % Neutrophils # (Manual) 0.0 TH/MM3 Differential Comment FINAL DIFF MANUAL Platelet Estimate RARE Platelet Morphology Comment NORMAL Crossmatch Irradiated/Leukocyte-Reduced RBC Blood Bank Comment Culture Results Microbiology Date/Time Procedure Status Source Growth 10/09/16 09:00 Aerobic Blood Culture - Preliminary Resulted Blood Line NO GROWTH IN 1 DAY 10/09/16 09:00 Anaerobic Blood Culture - Preliminary Resulted Blood Line NO GROWTH IN 1 DAY 10/09/16 09:59 Aerobic Blood Culture - Preliminary Resulted Blood Peripheral NO GROWTH IN 1 DAY 10/09/16 09:59 Anaerobic Blood Culture - Preliminary Resulted Blood Peripheral NO GROWTH IN 1 DAY Administered Medications Medications (Trade) Dose Ordered Sig/Génesis Route PRN Reason Start Time Stop Time Status Last Admin Dose Admin Acetaminophen (Tylenol) 650 mg Q4H PRN PO PAIN SCALE 0-3 OR TEMP> 100.5F 09/25/16 08:45 10/10/16 04:28 Oxycodone HCl (Roxicodone) 5 mg Q3H PRN PO PAIN SCALE 4 TO 7 09/25/16 08:45 10/10/16 10:31 Oxycodone HCl (Roxicodone) 10 mg Q3H PRN PO PAIN SCALE 8 TO 10 09/25/16 08:45 09/30/16 12:12 Sertraline HCl (Zoloft) 50 mg DAILY PO 09/26/16 09:00 10/10/16 09:09 Sodium Chloride (NS Flush) 2 ml BID IVF 09/25/16 21:00 10/10/16 09:08 Alteplase, Recombinant 2 mg 2 mg UNSCH PRN IVF SEE LABEL COMMENTS 09/25/16 10:15 10/10/16 09:09 Ondansetron HCl/ Dextrose (Zofran Inj/D5W Inj) 54 ml @ 216 mls/hr Q8H PRN IV PUSH NAUSEA OR VOMITING 09/25/16 10:30 09/27/16 02:13 Docusate Sodium 100 mg 100 mg TID PO 09/25/16 18:00 10/10/16 09:09 Sodium Chloride (NS 250 ml Inj) 250 ml @ 100 mls/hr Q24H IV 09/26/16 20:00 09/30/16 18:03 Amphetamine/ Dextroamphetamine (Adderall Xr) 15 mg DAILY PO 09/27/16 09:00 10/10/16 09:09 Lisinopril (Prinivil) 10 mg DAILY PO 09/28/16 09:00 Hold 09/30/16 09:22 Fluconazole (Diflucan) 200 mg DAILY PO 09/27/16 13:00 Hold 10/10/16 09:09 Amlodipine Besylate (Norvasc) 5 mg DAILY PO 09/29/16 09:00 Hold 09/30/16 09:22 Acetaminophen (Tylenol) 650 mg Q4H PRN PO FOR BLOOD PRODUCTS 09/30/16 22:00 10/10/16 08:00 Diphenhydramine HCl (Benadryl) 25 mg Q4H PRN PO FOR BLOOD PRODUCTS 09/30/16 22:00 10/10/16 08:00 Multi-Ingredient Mouthwash/Gargle (Magic Mouthwash Adult Liq) 5 ml QID SWISH-SWAL 10/08/16 21:00 10/15/16 19:09 10/10/16 09:10 Diazepam 10 mg 10 mg Q8HR PRN PO ANXIETY 10/09/16 07:01 10/10/16 01:05 Cefepime HCl 2000 mg/Sodium Chloride 100 ml @ 200 mls/hr Q8H IV 10/09/16 11:00 10/10/16 11:54 Daptomycin 800 mg/ Sodium Chloride 100 ml @ 200 mls/hr Q24H IV 10/09/16 20:00 10/09/16 20:31 Micafungin Sodium 150 mg/Sodium Chloride 100 ml @ 100 mls/hr Q24H IV 10/09/16 20:00 10/09/16 20:30 Sodium Chloride (NS 1000 ml Inj) 1,000 ml @ 125 mls/hr Q8H IV 10/09/16 21:00 10/10/16 05:00 Objective Remarks GENERAL: Middle aged male, lying in bed SKIN: Warm and dry. +pallor. healing wound left iliac crest. no surrounding erythema, no bleeding HEAD: Normocephalic. EYES: No injection or drainage. NECK: Supple, trachea midline. CARDIOVASCULAR: tachycardic rate, regular rhythm. RESPIRATORY: Breath sounds equal bilaterally. No accessory muscle use. GASTROINTESTINAL: Abdomen soft, non-tender, nondistended. EXTREMITIES: No cyanosis MUSCULOSKELETAL: Adequate muscle tone. NEUROLOGICAL: No obvious focal deficit. Awake, alert, and oriented x3. Assessment/Plan Problem List: (1) AML (acute myeloid leukemia) Status: Acute Plan: 10/10: afebrile today. tolerating blood and platelet transfusions. will keep in ICU another night as he remains tachycardic. 10/09: bone marrow biopsy today. 1 unit platelets, 2 units pRBC. spiked fever 103F. cefepime started. spoke with ID, who advised me to start Daptomycin and Micafungin. transferred to ICU after becoming tachy in 140s 10/08: day 13. 1 unit platelets. bone marrow biopsy tomorrow. 10/07: flow cytometry results returned showing NPM1 + and FLT3 +. I obtained the original pathology again from to double check and the original FLT3 was NEGATIVE. NPM1 mutation was detected 43.4%, KIT mutation not detected. 46XY 10/06: 2 units pRBC today. plan to do bone marrow biopsy AM. 2: 1 unit platelets today 10/04: D9. no fever. 10/03: D8. no transfusion. monitor for fever 10/02: Will give 1 unit PRBC's, platelets today. Plan for repeat BMB on 10/10. 10/01: Finished chemotherapy yesterday. Tolerated well. 1 unit irradiated PRBC's to be transfused today. Continue to closely monitor blood counts. 09/30: D5. last day of chemotherapy. will give 1 unit platelets. 09/29: D4. continue chemotherapy. no transfusion. 09/28: D3. 09/27: D2 09/26: Start on CLAG-M chemotherapy for relapsed AML. Received Neupogen yesterday. He spiked a fever this afternoon of 101.3. BC, UA, and CXR ordered. Will start pt on Cefepime. Await BC results. -- He has been getting CBC q2 weeks. On 09/18 it was noted that he had a white count at 11k and a platelet count of 76k. Blasts were at 38%. He was brought in to the clinic on 09/24 for a bone marrow biopsy. A CBC was done and showed a white count of 63.7, Hgb 12.2, and platelet count was 33K. The blasts were at 73 %. Decision was made at that time to admit for salvage chemo. History: 11/04/16: AML Diagnosis made. 46XY, +NPM1 mutation detected, FLT3 negative-- indicates favorable prognosis. 11/05-11/28: Initial induction with MELL-C and idarubicin (7+3). STAT Leukapheresis due to leukostasis. On D25, repeat bone marrow showed residual leukemia. 12/06-12/27: Re-induction with FLANG chemotherapy. Repeat bone marrow biopsy negative for residual AML. Patient in Complete Remission 01/06-01/10: C1 consolidation chemotherapy with Mell-C. 02/17-02/21: C2 consolidation chemotherapy with MELL-C. 03/25-03/30: C3 consolidation chemotherapy with MLEL-C 04/28-05/02: C4 consolidation chemo with MELL-C (2) Hypertension Status: Acute Plan: -- Hold amlodipine, lisinopril, continue atenolol (3) Diabetes Status: Acute Plan: --on SSI Novolog (4) Fever Status: Acute Plan: -- BC no growth --ID following -- on Cefepime + Daptomycin + Micafungin -- CXR negative --u/a neg (5) DVT prophylaxis Status: Acute Plan: -- Thrombocytopenia; will hold off on chemical prophylaxis at this time. (6) Constipation Status: Acute Plan: --on Colace schedule --PRN laxative --PRN Relistor Assessment 46 y/o male admitted for salvage chemotherapy for relapsed AML. Attending Statement fever is down Face is flushed. feels tired. repeat BM bx ( Verbal report from [facility] =still has residual leukemia. Will repeat BM bx on 10/16 ( Day 21) and if still has residual leukemia then will refer to [facility] for clinical trials. d/w pt The exam, history, and the medical decision-making described in the above note were completed with the assistance of the mid-level provider. I reviewed and agree with the findings presented. I attest that I had a [id number] encounter with the patient on the same day, and personally performed and documented my assessment and findings in the medical record. Problem Qualifiers (1) Diabetes: Qualified Code: E11.9 - Type 2 diabetes mellitus without complication, without long-term current use of insulin (2) Fever: Qualified Code: R50.9 - Fever, unspecified fever cause (3) Constipation: Qualified Code: K59.00 - Constipation, unspecified constipation type Janet Holm Oct 10, 2016 14:26 Alexandra Olea MD Oct 10, 2016 17:11
--- NOTE | 2016-10-10 15:44 | PD.ID.CON ---
History of Present Illness Service ID Consult Requested By Taylor ROCK Reason for Consult neutropenic fever Primary Care Physician Forrest Phillips MD Diagnoses: History of Present Illness 46 yo M known to me from prev admission 11 mos ago leukemia relaps sp chemo ANC 0 developped fever up to 103 , tachycardia in to 140s yday Xferred to ICU remains on RA, no cough was on levaquin profilaxis started on daptomycin, cefepimei micafungin last night with much clinical impro evement low grade fever today has PORT R chest x 1 yr Review of Systems Except as stated in HPI: all other systems reviewed are Neg Past Family Social History Allergies: Coded Allergies: Vancomycin (Verified Allergy, Severe, Rash, 04/28/16) Past Medical History 1. ADHD. 2. Hemochromatosis. 3. Hypercholesterolemia. 4. Acute myeloid leukemia diagnosed in October last year. 5. Anxiety disorder. Past Surgical History 1. Pfrnyk-V-Yvol placement. 2. Tonsillectomy. 3. Undescended testis. 4. Colonoscopy. 5. Cardiac catheterization. 6. Anal sphincterotomy. Active Ordered Medications Medications where reviewed in EMR Antibiotics Include: daptomycin, cefepimei micafungin Family History Non-Contributory. Social History No Tobacco. No ETOH. No Illicit Drugs. Physical Exam Vital Signs Vital Signs Date Time Temp Pulse Resp B/P Pulse Ox O2 Delivery O2 Flow Rate FiO2 10/10/16 11:00 100 10/10/16 11:00 98.2 100 18 106/63 99 10/10/16 07:00 109 10/10/16 07:00 98.9 109 18 93/49 98 10/10/16 04:00 101.9 10/10/16 03:00 100.5 120 12 86/42 99 10/10/16 03:00 123 10/09/16 23:00 130 10/09/16 23:00 100.4 131 16 137/80 98 10/09/16 22:45 102.1 134 18 147/82 99 10/09/16 21:30 100.3 10/09/16 20:45 102.4 10/09/16 20:10 130 10/09/16 20:10 101.2 131 18 131/76 99 10/09/16 18:48 103.0 10/09/16 17:15 103.0 144 16 130/83 100 10/09/16 16:50 102.5 140 98 10/09/16 16:00 102.9 145 18 113/74 99 Physical Exam CONSTITUTIONAL/GENERAL: This is an adequately nourished patient, in no apparent distress. TUBES/LINES/DRAINS: PORT in R chest - site OK SKIN: No jaundice, rashes, or lesions. Skin temperature appropriate. Not diaphoretic. HEAD: Atraumatic. Normocephalic. EYES: Pupils equal and round and reactive. Extraocular motions intact. No scleral icterus. No injection or drainage. Fundi not examined. ENT: Hearing grossly normal. Nose without bleeding or purulent drainage. Oral mucosae moist small wound on L buccal mucosae NECK: Trachea midline. Supple, nontender. No palpable thyroid enlargement or nodularity. CARDIOVASCULAR: Regular rate and rhythm without murmurs, gallops, or rubs. No JVD. Peripheral pulses symmetric. RESPIRATORY/CHEST: Symmetric, unlabored respirations. Clear to auscultation. Breath sounds equal bilaterally. No wheezes, rales, or rhonchi. GASTROINTESTINAL: Abdomen soft, non-tender, nondistended. No hepato-splenomegaly , or palpable masses. No guarding. Bowel sounds present. GENITOURINARY: Without palpable bladder distension. MUSCULOSKELETAL: Extremities without clubbing, cyanosis, or edema. No joint tenderness or effusion noted. No calf tenderness. No mottling or clubbing. LYMPHATICS: No palpable cervical or supraclavicular adenopathy. NEUROLOGICAL: Awake and alert. Motor and sensory grossly within normal limits. Follows commands. Cognitively sharp. Moves all extremities. PSYCHIATRIC: No obvious anxiety/depression. no apparent hallucinations or other psychotic thought process. Laboratory Laboratory Tests Test 10/10/16 10/10/16 10/10/16 04:12 04:17 07:05 Sodium Level 135 Potassium Level 3.4 Chloride Level 100 Carbon Dioxide Level 27.9 Anion Gap 7 Blood Urea Nitrogen 8 Creatinine 0.55 Estimat Glomerular Filtration 159 Rate Random Glucose 188 Calcium Level 8.1 Phosphorus Level 2.7 Total Bilirubin 1.0 Aspartate Amino Transf LESS THAN 3 (AST/SGOT) Alanine Aminotransferase 11 (ALT/SGPT) Alkaline Phosphatase 99 Total Protein 5.9 Albumin 3.0 White Blood Count 0.1 Red Blood Count 2.54 Hemoglobin 7.3 Hematocrit 20.8 Mean Corpuscular Volume 82.0 Mean Corpuscular Hemoglobin 28.8 Mean Corpuscular Hemoglobin 35.2 Concent Red Cell Distribution Width 15.6 Platelet Count 12 Mean Platelet Volume 7.9 Neutrophils (%) (Auto) Lymphocytes (%) (Auto) Monocytes (%) (Auto) Eosinophils (%) (Auto) Basophils (%) (Auto) Neutrophils # (Auto) Lymphocytes # (Auto) Monocytes # (Auto) Eosinophils # (Auto) Basophils # (Auto) CBC Comment AUTO DIFF Differential Total Cells 20 Counted Lymphocytes % 100 Neutrophils # (Manual) 0.0 Differential Comment FINAL DIFF MANUAL Platelet Estimate RARE Platelet Morphology Comment NORMAL Crossmatch Irradiated/Leukocyte-Reduced RBC Blood Bank Comment Date/Time Procedure Status Source Growth 10/09/16 09:59 Aerobic Blood Culture - Preliminary Resulted Blood Peripheral NO GROWTH IN 1 DAY 10/09/16 09:59 Anaerobic Blood Culture - Preliminary Resulted Blood Peripheral NO GROWTH IN 1 DAY Result Diagram: 10/10/16 0417 10/10/16 0412 Imaging Last Impressions Chest X-Ray 10/09/16 0000 Signed Impressions: Service Date/Time: October 11:31 - CONCLUSION: The lungs are clear. Isai Blanco MD Assessment and Plan Assessment and Plan Leukemia relaps sp chemo neutropenic fever Sepsis - clincially resolving Reports adverse reaction to IV vanco in the form of diarrhea - cont daptomycin, cefepimei micafungin for now - fu BC Discussed Condition With customer contact specialist team Laura Galarza MD Oct 10, 2016 15:44
[2016-10-10] MEDS: DAPTOmycin INJ 800 MG in SODIUM CHLORIDE 0.9% INJ 100 ML IV SCH (20:53)
[2016-10-10] MEDS: MICAFUNGIN INJ 150 MG in SODIUM CHLORIDE 0.9% INJ 100 ML IV SCH (20:54)
[2016-10-10 21:06] LABS: MEAN CORPUSCULAR HGB CONC 36.8 % (32.0-36.0)
[2016-10-10] MEDS: ATENOLOL 50 MG TAB PO SCH (22:42)
[2016-10-11] VITALS (7 sets, daily range): BP systolic 114–140; BP diastolic 65–86; PULSE 93–109; RESP 18–20; TEMP 98–101.8; O2SAT 92–97
[2016-10-11] MEDS: CEFEPIME INJ 2,000 MG in SODIUM CHLORIDE 0.9% INJ 100 ML IV SCH ×3 (03:13→18:51)
[2016-10-11] MEDS: SODIUM CHLOR 0.9% 1000 ML INJ 1,000 ML IV SCH ×3 (05:00→21:00)
[2016-10-11 06:05] LABS: HEMATOCRIT 21.4 % (39.0-51.0); MEAN CELL VOLUME 81.6 FL (80.0-100.0); RED BLOOD COUNT 2.62 MIL/MM3 (4.50-5.90); RED CELL DISTRIBUTION WIDTH 15.3 % (11.6-17.2); WHITE BLOOD COUNT 0.1 TH/MM3 (4.0-11.0)
[2016-10-11 06:10] LABS: HEMO FLAGS AUTO DIFF
[2016-10-11 06:14] LABS: PLATELET COUNT 16 TH/MM3 (150-450)
[2016-10-11 06:31] LABS: ALT (GPT) 11 U/L (12-78); ANION GAP 4 MEQ/L (5-15); AST (GOT) 3 U/L (15-37); BICARBONATE 28.7 MEQ/L (21.0-32.0); BLOOD UREA NITROGEN 6 MG/DL (7-18); CHLORIDE 104 MEQ/L (98-107); GLOMERULAR FILTRATION RATE 162 ML/MIN (>89); MAGNESIUM 2.1 MG/DL (1.5-2.5); POTASSIUM 3.5 MEQ/L (3.5-5.1); SODIUM (NA) 137 MEQ/L (136-145)
[2016-10-11 06:33] LABS: ALKALINE PHOSPHATASE 113 U/L (45-117); TOTAL BILIRUBIN ADULT 0.5 MG/DL (0.2-1.0)
[2016-10-11] MEDS: INSULIN ASPART SUPPLEMENTAL SCALE SQ SCH ×4 (07:00→21:00)
--- NOTE | 2016-10-11 07:37 | HHI.CCPN ---
Subjective Remarks/Hospital Course 46-year-old gentleman with acute myeloid leukemia treated in 2016 and now returns with a relapse of disease. He was admitted to hematology oncology floor , today he developed fevers to 103 and is transferred to ICU for closer monitoring and observation. 10/10 Patient is lying in bed in NAD. Tmax 102.1 last night BP is better. Patient was given 1u PRBC and 10 unit PLT this morning. 10/11 Tmax 101.4. No acute events overnight. Patient refusing blood glucose monitoring before meals, requests blood glucose only be obtained at night. Patient heart rate, continues to be low 100's, less than 110. Heart rate appears at baseline since admission, upon review of records. Tenormin was restarted decreased to 50 mg daily, MAP ranging [id number]. Objective Vital Signs Date Time Temp Pulse Resp B/P Pulse Ox O2 Delivery O2 Flow Rate FiO2 10/11/16 03:00 93 10/11/16 03:00 98.0 18 114/68 94 Intake and Output 10/10/16 10/10/16 10/11/16 08:00 16:00 00:00 Intake Total 2172 ml 4486 ml Output Total 2950 ml 1700 ml Balance -778 ml 2786 ml Result Diagram: 10/11/16 0540 10/11/16 0540 Imaging Last Impressions Chest X-Ray 10/09/16 0000 Signed Impressions: Service Date/Time: October 11:31 - CONCLUSION: The lungs are clear. Isai Blanco MD Objective Remarks GENERAL: Well-nourished, well-developed patient in no apparent distress. SKIN: Warm and dry. HEAD: Normocephalic. EYES: No scleral icterus. No injection or drainage. NECK: Supple, trachea midline. No JVD or lymphadenopathy. CARDIOVASCULAR:Tachycardic without murmurs, gallops, or rubs. RESPIRATORY: Breath sounds equal bilaterally. No accessory muscle use. GASTROINTESTINAL: Abdomen soft, non-tender, nondistended. MUSCULOSKELETAL: No cyanosis, or edema. BACK: Nontender without obvious deformity. No CVA tenderness. EXTREMITIES: No clubbing cyanosis or edema Neuro: Awake and alert Urinary Catheter: No Reason for Continuation Right portacath insitu A/P Assessment and Plan 1)Neutropenic fever 2)Acute myeloid leukemia 3)Pancytopenia 4)Hypokalemia 5)Hypertension 6)Diabetes mellitus 7)Depression 8) Hypophosphatemia Neuro: Awake and alert Pulm: Oxygen PRN keep sat >92%, currently on room air, O2 sat 97% CV: Monitor HR and BP keep MAP>65mmHg 09/25 Echo showed EF 45-50% : Monitor renal function, I/O's, electrolytes replacement per protocol. On NS@125ml/hr, tolerating PO, will decrease IV fluid to 75 cc/hour GI: On PO diet ID: Continue with abx per ID (Cefepime, Micafungin, Daptomycin) Monitor for signs of infections( Fever, WBC) follow up on cxs Dr. Galarza-following Blood, sputum cultures- NGTD Endo: On SSI with accuhecks Heme: Monitor CBC, coags s/p transfusion 1unit PRBC and 10u PLT this morning, Further transfusion per heme. GI prophylaxis- On PO diet no indication for GI prophylaxis DVT prophylaxis- SCD, not a candidate for AC prophylaxis due to thrombocytopenia Level 3 Dispo: Plan transfer to hospitalist, transfer to floor. Discussed with BUSINESS DATABASE ANALYST and patient. Physician Nancy Valdes MD Oct 11, 2016 07:37
[2016-10-11] MEDS ORDERED: MAGNESIUM SULFATE INJ 2 GM in SODIUM CHLORIDE 0.9% INJ 96 ML IV PRN (07:45)
[2016-10-11] MEDS ORDERED: POTASSIUM CHLOR 20 MEQ PREMIX 100 ML IV PRN (07:45)
[2016-10-11] MEDS ORDERED: MAGNESIUM OXIDE 400 MG TAB PO PRN (07:45)
[2016-10-11] MEDS ORDERED: POTASSIUM PHOSPHATE MONOBASIC 500 MG TAB PO PRN (07:45)
[2016-10-11] MEDS ORDERED: POTASSIUM PHOSPHATE MONOBASIC 500 MG TAB PO/TUBE PRN (07:45)
[2016-10-11] MEDS ORDERED: POTASSIUM CHLOR 40 MEQ PREMIX 100 ML IV-CENTRAL PRN ×2 (07:45)
[2016-10-11] MEDS ORDERED: SODIUM PHOSPHATE INJ 30 MMOL in SODIUM CHLOR 0.9% 250 ML INJ 240 ML IV PRN (07:45)
[2016-10-11] MEDS ORDERED: MAGNESIUM SULFATE INJ 4 GM in SODIUM CHLORIDE 0.9% INJ 92 ML IV PRN (07:45)
[2016-10-11] MEDS ORDERED: POTASSIUM PHOSPHATE INJ 30 MMOL in SODIUM CHLOR 0.9% 250 ML INJ 250 ML IV PRN (07:45)
[2016-10-11] MEDS ORDERED: SODIUM CHLOR 0.9% 250 ML INJ 250 ML IV ONE (08:15)
[2016-10-11] MEDS ORDERED: ACETAMINOPHEN 325 MG TAB PO PRN (08:30)
[2016-10-11] MEDS: DEXTROAMPHETAMINE/AMPHETAMINE XR 15 MG CAP PO SCH (08:39)
[2016-10-11] MEDS: ACETAMINOPHEN 325 MG TAB PO PRN (08:39)
[2016-10-11] MEDS: diphenhydrAMINE HCL 25 MG CAP PO PRN (08:39)
[2016-10-11] MEDS: SERTRALINE HCL 50 MG TAB PO SCH (08:40)
[2016-10-11] MEDS: NYSTAT/DIPHENHY/LIDO MOUTHWASH (Adult) 120ML SWISH-SWAL SCH ×4 (08:40→21:06)
[2016-10-11] MEDS: DOCUSATE SODIUM 100 MG CAP PO SCH ×3 (08:40→18:07)
[2016-10-11] MEDS: SODIUM CHLORIDE 10 ML FLUSH BID IVF SCH ×2 (08:42→21:00)
[2016-10-11 10:37] LABS: WBC DIFF SAMPLE 15
[2016-10-11 10:41] LABS: PLATELET ESTIMATE SMEAR RARE (NORMAL); PLATELET MORPHOLOGY NORMAL (NORMAL); SCAN/DIFF FINAL DIFF MANUAL
--- NOTE | 2016-10-11 12:33 | PD.ONC.PN ---
Subjective Subjective Remarks Tmax 101.8 overnight. He is getting discouraged because of the frequent setbacks. He denies abdominal pain, SOB or cough. Objective Data Date Time Temp Pulse Resp B/P Pulse Ox O2 Delivery O2 Flow Rate FiO2 10/11/16 12:00 107 10/11/16 11:00 99.7 100 18 130/76 94 10/11/16 09:50 100.8 109 20 140/77 93 10/11/16 07:00 107 10/11/16 07:00 101.8 107 18 117/65 92 10/11/16 03:00 93 10/11/16 03:00 98.0 93 18 114/68 94 10/10/16 23:10 18 10/10/16 23:00 97.7 107 18 138/77 99 10/10/16 23:00 107 10/10/16 19:00 100.0 108 18 136/75 99 10/10/16 19:00 108 10/10/16 16:53 16 10/10/16 15:40 101.4 105 16 136/76 99 Result Diagram: 10/11/16 0540 10/11/16 0540 Laboratory Results Laboratory Tests Test 10/11/16 10/11/16 05:40 07:49 White Blood Count 0.1 TH/MM3 Red Blood Count 2.62 MIL/MM3 Hemoglobin 7.9 GM/DL Hematocrit 21.4 % Mean Corpuscular Volume 81.6 FL Mean Corpuscular Hemoglobin 30.0 PG Mean Corpuscular Hemoglobin 36.8 % Concent Red Cell Distribution Width 15.3 % Platelet Count 16 TH/MM3 Mean Platelet Volume 7.0 FL Neutrophils (%) (Auto) % Lymphocytes (%) (Auto) % Monocytes (%) (Auto) % Eosinophils (%) (Auto) % Basophils (%) (Auto) % Neutrophils # (Auto) TH/MM3 Lymphocytes # (Auto) TH/MM3 Monocytes # (Auto) TH/MM3 Eosinophils # (Auto) TH/MM3 Basophils # (Auto) TH/MM3 CBC Comment AUTO DIFF Differential Total Cells 15 Counted Lymphocytes % 93 % Monocytes % 7 % Neutrophils # (Manual) 0.0 TH/MM3 Differential Comment FINAL DIFF MANUAL Platelet Estimate RARE Platelet Morphology Comment NORMAL Sodium Level 137 MEQ/L Potassium Level 3.5 MEQ/L Chloride Level 104 MEQ/L Carbon Dioxide Level 28.7 MEQ/L Anion Gap 4 MEQ/L Blood Urea Nitrogen 6 MG/DL Creatinine 0.54 MG/DL Estimat Glomerular Filtration 162 ML/MIN Rate Random Glucose 182 MG/DL Calcium Level 8.3 MG/DL Phosphorus Level 1.8 MG/DL Magnesium Level 2.1 MG/DL Total Bilirubin 0.5 MG/DL Aspartate Amino Transf 3 U/L (AST/SGOT) Alanine Aminotransferase 11 U/L (ALT/SGPT) Alkaline Phosphatase 113 U/L Total Protein 6.0 GM/DL Albumin 2.8 GM/DL Blood Bank Comment Culture Results Microbiology Date/Time Procedure Status Source Growth 10/09/16 09:00 Aerobic Blood Culture - Preliminary Resulted Blood Line NO GROWTH IN 2 DAYS 10/09/16 09:00 Anaerobic Blood Culture - Preliminary Resulted Blood Line NO GROWTH IN 2 DAYS 10/09/16 09:59 Aerobic Blood Culture - Preliminary Resulted Blood Peripheral NO GROWTH IN 2 DAYS 10/09/16 09:59 Anaerobic Blood Culture - Preliminary Resulted Blood Peripheral NO GROWTH IN 2 DAYS Administered Medications Medications (Trade) Dose Ordered Sig/Génesis Route PRN Reason Start Time Stop Time Status Last Admin Dose Admin Acetaminophen (Tylenol) 650 mg Q4H PRN PO PAIN SCALE 0-3 OR TEMP> 100.5F 09/25/16 08:45 10/10/16 21:16 Oxycodone HCl (Roxicodone) 5 mg Q3H PRN PO PAIN SCALE 4 TO 7 09/25/16 08:45 10/10/16 22:10 Oxycodone HCl (Roxicodone) 10 mg Q3H PRN PO PAIN SCALE 8 TO 10 09/25/16 08:45 09/30/16 12:12 Sertraline HCl (Zoloft) 50 mg DAILY PO 09/26/16 09:00 10/11/16 08:40 Sodium Chloride (NS Flush) 2 ml BID IVF 09/25/16 21:00 10/11/16 08:42 Alteplase, Recombinant 2 mg 2 mg UNSCH PRN IVF SEE LABEL COMMENTS 09/25/16 10:15 10/10/16 09:09 Ondansetron HCl/ Dextrose (Zofran Inj/D5W Inj) 54 ml @ 216 mls/hr Q8H PRN IV PUSH NAUSEA OR VOMITING 09/25/16 10:30 09/27/16 02:13 Docusate Sodium 100 mg 100 mg TID PO 09/25/16 18:00 10/11/16 08:40 Sodium Chloride (NS 250 ml Inj) 250 ml @ 100 mls/hr Q24H IV 09/26/16 20:00 10/10/16 20:55 Amphetamine/ Dextroamphetamine (Adderall Xr) 15 mg DAILY PO 09/27/16 09:00 10/11/16 08:39 Lisinopril (Prinivil) 10 mg DAILY PO 09/28/16 09:00 Hold 09/30/16 09:22 Fluconazole (Diflucan) 200 mg DAILY PO 09/27/16 13:00 Hold 10/10/16 09:09 Amlodipine Besylate (Norvasc) 5 mg DAILY PO 09/29/16 09:00 Hold 09/30/16 09:22 Acetaminophen (Tylenol) 650 mg Q4H PRN PO FOR BLOOD PRODUCTS 09/30/16 22:00 10/11/16 08:39 Diphenhydramine HCl (Benadryl) 25 mg Q4H PRN PO FOR BLOOD PRODUCTS 09/30/16 22:00 10/11/16 08:39 Multi-Ingredient Mouthwash/Gargle (Magic Mouthwash Adult Liq) 5 ml QID SWISH-SWAL 10/08/16 21:00 10/15/16 19:09 10/11/16 08:40 Diazepam 10 mg 10 mg Q8HR PRN PO ANXIETY 10/09/16 07:01 10/10/16 22:42 Cefepime HCl 2000 mg/Sodium Chloride 100 ml @ 200 mls/hr Q8H IV 10/09/16 11:00 10/11/16 11:35 Daptomycin 800 mg/ Sodium Chloride 100 ml @ 200 mls/hr Q24H IV 10/09/16 20:00 10/10/16 20:53 Micafungin Sodium 150 mg/Sodium Chloride 100 ml @ 100 mls/hr Q24H IV 10/09/16 20:00 10/10/16 20:54 Sodium Chloride (NS 1000 ml Inj) 1,000 ml @ 125 mls/hr Q8H IV 10/09/16 21:00 10/11/16 05:00 Atenolol 50 mg 50 mg HS PO 10/10/16 22:45 10/10/16 22:42 Sodium Chloride (NS 250 ml Inj) 250 ml @ 15 mls/hr ONCE ONCE IV 10/11/16 08:15 10/12/16 00:54 10/11/16 08:41 Objective Remarks GENERAL: Well-nourished, well-developed patient. SKIN: Warm and dry. HEAD: Normocephalic. EYES: No scleral icterus. No injection or drainage. NECK: Supple, trachea midline. No JVD or lymphadenopathy. LYMPHATIC: No adenopathy. CARDIOVASCULAR: Regular rate and rhythm without murmurs. RESPIRATORY: Breath sounds equal bilaterally. No accessory muscle use. GASTROINTESTINAL: Abdomen soft, non-tender, nondistended. EXTREMITIES: No cyanosis, or edema. MUSCULOSKELETAL: Adequate muscle tone. NEUROLOGICAL: No obvious focal deficit. Awake, alert, and oriented x3. PSYCHIATRIC: Appropriate mood and affect; insight and judgment normal. Assessment/Plan Problem List: (1) AML (acute myeloid leukemia) Status: Acute Plan: 10/11: Spiked a fever this morning to 101.8. Will order blood cultures x 2 , check UA. No longer tachycardic. Continue IV Abx. Transfuse 1 unit platelets today. 10/10: afebrile today. tolerating blood and platelet transfusions. will keep in ICU another night as he remains tachycardic. 10/09: bone marrow biopsy today. 1 unit platelets, 2 units pRBC. spiked fever 103F. cefepime started. spoke with ID, who advised me to start Daptomycin and Micafungin. transferred to ICU after becoming tachy in 140s 10/08: day 13. 1 unit platelets. bone marrow biopsy tomorrow. 10/07: flow cytometry results returned showing NPM1 + and FLT3 +. I obtained the original pathology again from to double check and the original FLT3 was NEGATIVE. NPM1 mutation was detected 43.4%, KIT mutation not detected. 46XY 10/06: 2 units pRBC today. plan to do bone marrow biopsy AM. 10/05: 1 unit platelets today 10/04: D9. no fever. 10/03: D8. no transfusion. monitor for fever 10/02: Will give 1 unit PRBC's, platelets today. Plan for repeat BMB on 10/10. 10/01: Finished chemotherapy yesterday. Tolerated well. 1 unit irradiated PRBC's to be transfused today. Continue to closely monitor blood counts. 09/30: D5. last day of chemotherapy. will give 1 unit platelets. 09/29: D4. continue chemotherapy. no transfusion. 09/28: D3. 09/27: D2 09/26: Start on CLAG-M chemotherapy for relapsed AML. Received Neupogen yesterday. He spiked a fever this afternoon of 101.3. BC, UA, and CXR ordered. Will start pt on Cefepime. Await BC results. -- He has been getting CBC q2 weeks. On 09/18 it was noted that he had a white count at 11k and a platelet count of 76k. Blasts were at 38%. He was brought in to the clinic on 09/24 for a bone marrow biopsy. A CBC was done and showed a white count of 63.7, Hgb 12.2, and platelet count was 33K. The blasts were at 73 %. Decision was made at that time to admit for salvage chemo. History: 11/04/16: AML Diagnosis made. 46XY, +NPM1 mutation detected, FLT3 negative-- indicates favorable prognosis. 11/05-11/28: Initial induction with MELL-C and idarubicin (7+3). STAT Leukapheresis due to leukostasis. On D25, repeat bone marrow showed residual leukemia. 12/06-12/27: Re-induction with FLANG chemotherapy. Repeat bone marrow biopsy negative for residual AML. Patient in Complete Remission 01/06-01/10: C1 consolidation chemotherapy with Mell-C. 02/17-02/21: C2 consolidation chemotherapy with MELL-C. 03/25-03/30: C3 consolidation chemotherapy with MELL-C 04/28-05/02: C4 consolidation chemo with MELL-C (2) Hypertension Status: Acute Plan: -- Hold amlodipine, lisinopril, continue atenolol (3) Diabetes Status: Acute Plan: --on SSI Novolog (4) Fever Status: Acute Plan: -- BC no growth --ID following -- on Cefepime + Daptomycin + Micafungin -- CXR negative --u/a neg (5) DVT prophylaxis Status: Acute Plan: -- Thrombocytopenia; will hold off on chemical prophylaxis at this time. (6) Constipation Status: Acute Plan: --on Colace schedule --PRN laxative --PRN Relistor Assessment 46 y/o male admitted for salvage chemotherapy for relapsed AML. Attending Statement The exam, history, and the medical decision-making described in the above note were completed with the assistance of the mid-level provider. I reviewed and agree with the findings presented. I attest that I had a [id number] encounter with the patient on the same day, and personally performed and documented my assessment and findings in the medical record. Pt seen and examined. Discussed the flow cytometry showing 70% blast concerning for persistent disease. Reviewed options discussed with him by Dr. Olea, from additional tx vs. clinical trial. Pt in consultation with transplant at [facility]. Emotional support provided. at bedside. Noted pancytopenia, fevers, continue support. Problem Qualifiers (1) Diabetes: Qualified Code: E11.9 - Type 2 diabetes mellitus without complication, without long-term current use of insulin (2) Fever: Qualified Code: R50.9 - Fever, unspecified fever cause (3) Constipation: Qualified Code: K59.00 - Constipation, unspecified constipation type Valarie Lopez Oct 11, 2016 12:32 Kavitha Brown MD Oct 11, 2016 13:23
[2016-10-11 16:48] LABS: MUCUS URINE FEW /lpf (OCC)
[2016-10-11 16:52] LABS: BLOOD, URINE NEG (NEG); COMMENT (UR) CULT NOT INDICATED; CULTURE IF INDICATED CULT NOT INDICATED; GLUCOSE,URINE NEG (NEG); KETONE, URINE NEG (NEG); NITRITE,URINE NEG (NEG); PH, URINE 6.5 (5.0-8.5); URINE COLOR LIGHT-YELLOW (YELLW/STRAW)
[2016-10-11] MEDS: MICAFUNGIN INJ 150 MG in SODIUM CHLORIDE 0.9% INJ 100 ML IV SCH (20:00)
[2016-10-11] MEDS: SODIUM CHLOR 0.9% 250 ML INJ 250 ML IV SCH (20:00)
[2016-10-11] MEDS: ATENOLOL 50 MG TAB PO SCH (21:06)
[2016-10-11] MEDS: DAPTOmycin INJ 800 MG in SODIUM CHLORIDE 0.9% INJ 100 ML IV SCH (21:06)
[2016-10-12] VITALS (8 sets, daily range): BP systolic 96–146; BP diastolic 55–93; PULSE 90–116; RESP 16–20; TEMP 98.1–99.5; O2SAT 93–97
[2016-10-12] MEDS: DIAZEPAM 10 MG TAB PO PRN ×3 (01:48→23:10)
[2016-10-12] MEDS: SODIUM CHLOR 0.9% 1000 ML INJ 1,000 ML IV SCH ×3 (02:15→16:27)
[2016-10-12] MEDS: CEFEPIME INJ 2,000 MG in SODIUM CHLORIDE 0.9% INJ 100 ML IV SCH ×3 (03:44→18:31)
[2016-10-12] MEDS: INSULIN ASPART SUPPLEMENTAL SCALE SQ SCH ×4 (06:30→21:00)
[2016-10-12 07:26] LABS: ALKALINE PHOSPHATASE 107 U/L (45-117); ALT (GPT) 11 U/L (12-78); ANION GAP 8 MEQ/L (5-15); AST (GOT) LESS THAN 3 U/L (15-37); BICARBONATE 29.3 MEQ/L (21.0-32.0); BLOOD UREA NITROGEN 6 MG/DL (7-18); CHLORIDE 99 MEQ/L (98-107); GLOMERULAR FILTRATION RATE 166 ML/MIN (>89); MEAN CELL VOLUME 81.8 FL (80.0-100.0); MEAN CORPUSCULAR HGB CONC 35.4 % (32.0-36.0); POTASSIUM 3.2 MEQ/L (3.5-5.1); RED BLOOD COUNT 2.29 MIL/MM3 (4.50-5.90); RED CELL DISTRIBUTION WIDTH 15.2 % (11.6-17.2); SODIUM (NA) 136 MEQ/L (136-145); TOTAL BILIRUBIN ADULT 0.6 MG/DL (0.2-1.0); WHITE BLOOD COUNT 0.1 TH/MM3 (4.0-11.0)
[2016-10-12 07:37] LABS: HEMO FLAGS AUTO DIFF
[2016-10-12 07:41] LABS: HEMATOCRIT 18.7 % (39.0-51.0)
[2016-10-12 07:42] LABS: PLATELET COUNT 19 TH/MM3 (150-450)
[2016-10-12] MEDS ORDERED: SODIUM CHLOR 0.9% 250 ML INJ 250 ML IV ONE ×2 (08:00→10:00)
[2016-10-12] MEDS ORDERED: FUROSEMIDE 20 MG/2 ML VIAL IV ONE (08:00)
[2016-10-12] MEDS ORDERED: ACETAMINOPHEN 325 MG TAB PO PRN (08:00)
[2016-10-12] MEDS ORDERED: diphenhydrAMINE HCL 25 MG CAP PO PRN (08:00)
[2016-10-12] MEDS: diphenhydrAMINE HCL 25 MG CAP PO PRN (08:35)
[2016-10-12] MEDS: ACETAMINOPHEN 325 MG TAB PO PRN (08:36)
[2016-10-12] MEDS: DOCUSATE SODIUM 100 MG CAP PO SCH ×3 (08:36→17:24)
[2016-10-12] MEDS: NYSTAT/DIPHENHY/LIDO MOUTHWASH (Adult) 120ML SWISH-SWAL SCH ×4 (08:36→20:11)
[2016-10-12] MEDS: SERTRALINE HCL 50 MG TAB PO SCH (08:36)
[2016-10-12] MEDS: DEXTROAMPHETAMINE/AMPHETAMINE XR 15 MG CAP PO SCH (08:36)
[2016-10-12] MEDS: POTASSIUM CHLOR 20 MEQ PREMIX 100 ML IV PRN ×4 (08:44→15:03)
[2016-10-12] MEDS: SODIUM CHLORIDE 10 ML FLUSH BID IVF SCH ×2 (09:09→20:11)
[2016-10-12 09:48] LABS: WBC DIFF SAMPLE 10
[2016-10-12 09:50] LABS: OVALOCYTES 1+ (NORMAL); PLATELET ESTIMATE SMEAR LOW (NORMAL); PLATELET MORPHOLOGY NORMAL (NORMAL); SCAN/DIFF FINAL DIFF MANUAL
--- NOTE | 2016-10-12 10:04 | HHI.PR ---
Subjective Remarks Fevers resolving well. No rigors. He will need a blood transfusion today, due to anemia. Etiology of anemia most likely related to AML and Chemo, but stools will be evaluated for blood. Objective Vital Signs Date Time Temp Pulse Resp B/P Pulse Ox O2 Delivery O2 Flow Rate FiO2 10/12/16 09:52 98.3 116 20 143/91 95 10/12/16 07:00 101 10/12/16 07:00 99.5 99 20 120/70 93 10/12/16 04:00 98.2 94 16 96/55 10/12/16 04:00 94 10/12/16 00:00 100 10/12/16 00:00 98.8 100 18 120/74 94 10/11/16 20:00 100 10/11/16 20:00 99.4 100 18 125/80 96 10/11/16 15:00 95 10/11/16 15:00 98.1 95 18 140/86 97 10/11/16 12:00 107 10/11/16 11:00 99.7 100 18 130/76 94 I/O 10/11/16 10/11/16 10/11/16 10/12/16 10/12/16 10/12/16 07:00 15:00 23:00 07:00 15:00 23:00 Intake Total 3520 ml 2582 ml 3169 ml Output Total 2800 ml 1950 ml 1800 ml Balance 720 ml 632 ml 1369 ml Intake Oral 1520 ml 1290 ml 1940 ml IV Total 2000 ml 1103 ml 1229 ml Platelets 189 ml Output Urine Total 2800 ml 1950 ml 1800 ml # Bowel Movements 0 1 0 Result Diagram: 10/12/16 0605 10/12/16 0605 Imaging Last Impressions Chest X-Ray 10/09/16 0000 Signed Impressions: Service Date/Time: October 11:31 - CONCLUSION: The lungs are clear. Isai Blanco MD Objective Remarks GENERAL: A&Ox3, NAD SKIN: Warm and dry, palor HEAD: Atraumatic. Normocephalic. EYES: Pupils equal and round. No scleral icterus. No injection or drainage. ENT: No nasal bleeding or discharge. Mucous membranes pink and moist. NECK: Trachea midline. No JVD. CARDIOVASCULAR: Regular rhythm, mild tachycardia (likely related to anemia) RESPIRATORY: No accessory muscle use. Clear to auscultation. Breath sounds equal bilaterally. GASTROINTESTINAL: Abdomen soft, non-tender, nondistended. Hepatic and splenic margins not palpable. MUSCULOSKELETAL: Extremities without clubbing, cyanosis, or edema. No obvious deformities. NEUROLOGICAL: Awake and alert. No obvious cranial nerve deficits. Motor grossly within normal limits. Five out of 5 muscle strength in the arms and legs. Normal speech. PSYCHIATRIC: Appropriate mood and affect; insight and judgment normal. Medications and IVs Administered Medications Medications (Trade) Dose Ordered Sig/Génesis Route PRN Reason Start Time Stop Time Status Last Admin Dose Admin Acetaminophen (Tylenol) 650 mg Q4H PRN PO PAIN SCALE 0-3 OR TEMP> 100.5F 09/25/16 08:45 10/10/16 21:16 Oxycodone HCl (Roxicodone) 5 mg Q3H PRN PO PAIN SCALE 4 TO 7 09/25/16 08:45 10/11/16 22:44 Oxycodone HCl (Roxicodone) 10 mg Q3H PRN PO PAIN SCALE 8 TO 10 09/25/16 08:45 09/30/16 12:12 Sertraline HCl (Zoloft) 50 mg DAILY PO 09/26/16 09:00 10/12/16 08:36 Sodium Chloride (NS Flush) 2 ml BID IVF 09/25/16 21:00 10/12/16 09:09 Alteplase, Recombinant 2 mg 2 mg UNSCH PRN IVF SEE LABEL COMMENTS 09/25/16 10:15 10/10/16 09:09 Ondansetron HCl/ Dextrose (Zofran Inj/D5W Inj) 54 ml @ 216 mls/hr Q8H PRN IV PUSH NAUSEA OR VOMITING 09/25/16 10:30 09/27/16 02:13 Docusate Sodium 100 mg 100 mg TID PO 09/25/16 18:00 10/12/16 08:36 Sodium Chloride (NS 250 ml Inj) 250 ml @ 100 mls/hr Q24H IV 09/26/16 20:00 10/10/16 20:55 Amphetamine/ Dextroamphetamine (Adderall Xr) 15 mg DAILY PO 09/27/16 09:00 10/12/16 08:36 Lisinopril (Prinivil) 10 mg DAILY PO 09/28/16 09:00 Hold 09/30/16 09:22 Fluconazole (Diflucan) 200 mg DAILY PO 09/27/16 13:00 Hold 10/10/16 09:09 Amlodipine Besylate (Norvasc) 5 mg DAILY PO 09/29/16 09:00 Hold 09/30/16 09:22 Acetaminophen (Tylenol) 650 mg Q4H PRN PO FOR BLOOD PRODUCTS 09/30/16 22:00 10/12/16 08:36 Diphenhydramine HCl (Benadryl) 25 mg Q4H PRN PO FOR BLOOD PRODUCTS 09/30/16 22:00 10/12/16 08:35 Multi-Ingredient Mouthwash/Gargle (Magic Mouthwash Adult Liq) 5 ml QID SWISH-SWAL 10/08/16 21:00 10/15/16 19:09 10/12/16 08:36 Diazepam 10 mg 10 mg Q8HR PRN PO ANXIETY 10/09/16 07:01 10/12/16 01:48 Cefepime HCl 2000 mg/Sodium Chloride 100 ml @ 200 mls/hr Q8H IV 10/09/16 11:00 10/12/16 03:44 Daptomycin 800 mg/ Sodium Chloride 100 ml @ 200 mls/hr Q24H IV 10/09/16 20:00 10/11/16 21:06 Micafungin Sodium 150 mg/Sodium Chloride 100 ml @ 100 mls/hr Q24H IV 10/09/16 20:00 10/11/16 20:00 Sodium Chloride (NS 1000 ml Inj) 1,000 ml @ 125 mls/hr Q8H IV 10/09/16 21:00 10/11/16 14:08 Atenolol 50 mg 50 mg HS PO 10/10/16 22:45 10/11/16 21:06 Potassium Chloride 100 ml @ 50 mls/hr Q2H PRN IV For Potassium 2.8 - 3.2 mEq/L 10/11/16 07:45 10/12/16 08:44 Sodium Chloride 1,000 ml @ 75 mls/hr [id number] IV 10/12/16 02:15 10/12/16 02:15 Sodium Chloride (NS 250 ml Inj) 250 ml @ 15 mls/hr ONCE ONCE IV 10/12/16 08:00 10/13/16 00:39 10/12/16 08:37 A/P Problem List: (1) Fever ICD Code: R50.9 (2) AML (acute myeloid leukemia) ICD Code: C92.00 (3) Anemia ICD Code: D64.9 (4) Pancytopenia ICD Code: D61.818 (5) Fever and neutropenia ICD Code: D70.9 Assessment and Plan A/P Neutropenic fever Improved Continue antibiotics Transfer out of ICU Acute myeloid leukemia Oncology following Treatment planning in process Treat symptoms for now Pancytopenia Anemia Related to AML and Hypokalemia Follow potassium Replace as needed Transfuse two units PRBC today Follow CBC Hypertension Follow BP Continue present treatments Diabetes mellitus Follow blood sugars Diabetic Diet Depression No change to baseline management No exacerbations Hypophosphatemia Follow phophorus and replace as needed Problem Qualifiers (1) Fever: Qualified Code: R50.9 - Fever, unspecified fever cause Avi Jose MD Oct 12, 2016 10:04
--- NOTE | 2016-10-12 10:57 | PD.ONC.PN ---
Subjective Subjective Remarks Tmax 99.4 overnight. Pt resting in bed in no distress. He has just started his 1st bag of PRBC's. He states he feels OK. He is looking forward to a visit from his family later today. Objective Data Date Time Temp Pulse Resp B/P Pulse Ox O2 Delivery O2 Flow Rate FiO2 10/12/16 09:52 98.3 116 20 143/91 95 10/12/16 07:00 101 10/12/16 07:00 99.5 99 20 120/70 93 10/12/16 04:00 98.2 94 16 96/55 10/12/16 04:00 94 10/12/16 00:00 100 10/12/16 00:00 98.8 100 18 120/74 94 10/11/16 20:00 100 10/11/16 20:00 99.4 100 18 125/80 96 10/11/16 15:00 95 10/11/16 15:00 98.1 95 18 140/86 97 10/11/16 12:00 107 10/11/16 11:00 99.7 100 18 130/76 94 10/12/16 10/12/16 10/12/16 07:00 15:00 23:00 Intake Total 3169 ml Output Total 1800 ml Balance 1369 ml Result Diagram: 10/12/1660410/12/16604 Laboratory Results Laboratory Tests Test 10/11/16 10/12/16 10/12/16 14:30 06:05 08:10 Urine Color LIGHT-YELLOW Urine Turbidity CLEAR Urine pH 6.5 Urine Specific Rembert 1.005 Urine Protein NEG mg/dL Urine Glucose (UA) NEG mg/dL Urine Ketones NEG mg/dL Urine Occult Blood NEG Urine Nitrite NEG Urine Bilirubin NEG Urine Urobilinogen LESS THAN 2.0 MG/DL Urine Leukocyte Esterase NEG Urine RBC 3 /hpf Urine WBC LESS THAN 1 /hpf Urine Mucus FEW /lpf Microscopic Urinalysis Comment CULT NOT INDICATED White Blood Count 0.1 TH/MM3 Red Blood Count 2.29 MIL/MM3 Hemoglobin 6.6 GM/DL Hematocrit 18.7 % Mean Corpuscular Volume 81.8 FL Mean Corpuscular Hemoglobin 29.0 PG Mean Corpuscular Hemoglobin 35.4 % Concent Red Cell Distribution Width 15.2 % Platelet Count 19 TH/MM3 Mean Platelet Volume 7.3 FL Neutrophils (%) (Auto) % Lymphocytes (%) (Auto) % Monocytes (%) (Auto) % Eosinophils (%) (Auto) % Basophils (%) (Auto) % Neutrophils # (Auto) TH/MM3 Lymphocytes # (Auto) TH/MM3 Monocytes # (Auto) TH/MM3 Eosinophils # (Auto) TH/MM3 Basophils # (Auto) TH/MM3 CBC Comment AUTO DIFF Differential Total Cells 10 Counted Lymphocytes % 100 % Neutrophils # (Manual) 0.0 TH/MM3 Differential Comment FINAL DIFF MANUAL Platelet Estimate LOW Platelet Morphology Comment NORMAL Ovalocytes 1+ Sodium Level 136 MEQ/L Potassium Level 3.2 MEQ/L Chloride Level 99 MEQ/L Carbon Dioxide Level 29.3 MEQ/L Anion Gap 8 MEQ/L Blood Urea Nitrogen 6 MG/DL Creatinine 0.53 MG/DL Estimat Glomerular Filtration 166 ML/MIN Rate Random Glucose 157 MG/DL Calcium Level 8.0 MG/DL Phosphorus Level 2.5 MG/DL Total Bilirubin 0.6 MG/DL Aspartate Amino Transf LESS THAN 3 U/L (AST/SGOT) Alanine Aminotransferase 11 U/L (ALT/SGPT) Alkaline Phosphatase 107 U/L Total Protein 5.6 GM/DL Albumin 2.6 GM/DL Blood Type O POSITIVE Antibody Screen NEGATIVE Crossmatch Irradiated/Leukocyte-Reduced RBC Blood Bank Comment Culture Results Microbiology Date/Time Procedure Status Source Growth 10/11/16 15:15 Aerobic Blood Culture Received Blood Peripheral Pending 10/11/16 15:15 Anaerobic Blood Culture Received Blood Peripheral Pending 10/11/16 15:30 Aerobic Blood Culture Received Blood Peripheral Pending 10/11/16 15:30 Anaerobic Blood Culture Received Blood Peripheral Pending Administered Medications Medications (Trade) Dose Ordered Sig/Génesis Route PRN Reason Start Time Stop Time Status Last Admin Dose Admin Acetaminophen (Tylenol) 650 mg Q4H PRN PO PAIN SCALE 0-3 OR TEMP> 100.5F 09/25/16 08:45 10/10/16 21:16 Oxycodone HCl (Roxicodone) 5 mg Q3H PRN PO PAIN SCALE 4 TO 7 09/25/16 08:45 10/11/16 22:44 Oxycodone HCl (Roxicodone) 10 mg Q3H PRN PO PAIN SCALE 8 TO 10 09/25/16 08:45 09/30/16 12:12 Sertraline HCl (Zoloft) 50 mg DAILY PO 09/26/16 09:00 10/12/16 08:36 Sodium Chloride (NS Flush) 2 ml BID IVF 09/25/16 21:00 10/12/16 09:09 Alteplase, Recombinant 2 mg 2 mg UNSCH PRN IVF SEE LABEL COMMENTS 09/25/16 10:15 10/10/16 09:09 Ondansetron HCl/ Dextrose (Zofran Inj/D5W Inj) 54 ml @ 216 mls/hr Q8H PRN IV PUSH NAUSEA OR VOMITING 09/25/16 10:30 09/27/16 02:13 Docusate Sodium 100 mg 100 mg TID PO 09/25/16 18:00 10/12/16 08:36 Sodium Chloride (NS 250 ml Inj) 250 ml @ 100 mls/hr Q24H IV 09/26/16 20:00 10/10/16 20:55 Amphetamine/ Dextroamphetamine (Adderall Xr) 15 mg DAILY PO 09/27/16 09:00 10/12/16 08:36 Lisinopril (Prinivil) 10 mg DAILY PO 09/28/16 09:00 Hold 09/30/16 09:22 Fluconazole (Diflucan) 200 mg DAILY PO 09/27/16 13:00 Hold 10/10/16 09:09 Amlodipine Besylate (Norvasc) 5 mg DAILY PO 09/29/16 09:00 Hold 09/30/16 09:22 Acetaminophen (Tylenol) 650 mg Q4H PRN PO FOR BLOOD PRODUCTS 09/30/16 22:00 10/12/16 08:36 Diphenhydramine HCl (Benadryl) 25 mg Q4H PRN PO FOR BLOOD PRODUCTS 09/30/16 22:00 10/12/16 08:35 Multi-Ingredient Mouthwash/Gargle (Magic Mouthwash Adult Liq) 5 ml QID SWISH-SWAL 10/08/16 21:00 10/15/16 19:09 10/12/16 08:36 Diazepam 10 mg 10 mg Q8HR PRN PO ANXIETY 10/09/16 07:01 10/12/16 01:48 Cefepime HCl 2000 mg/Sodium Chloride 100 ml @ 200 mls/hr Q8H IV 10/09/16 11:00 10/12/16 03:44 Daptomycin 800 mg/ Sodium Chloride 100 ml @ 200 mls/hr Q24H IV 10/09/16 20:00 10/11/16 21:06 Micafungin Sodium/ Sodium Chloride (Mycamine Inj/NS Inj) 100 ml @ 100 mls/hr Q24H IV 10/09/16 20:00 10/11/16 20:00 Atenolol 50 mg 50 mg HS PO 10/10/16 22:45 10/11/16 21:06 Potassium Chloride 100 ml @ 50 mls/hr Q2H PRN IV For Potassium 2.8 - 3.2 mEq/L 10/11/16 07:45 10/12/16 10:20 Sodium Chloride 1,000 ml @ 75 mls/hr [id number] IV 10/12/16 02:15 10/12/16 02:15 Sodium Chloride (NS 250 ml Inj) 250 ml @ 15 mls/hr ONCE ONCE IV 10/12/16 08:00 10/13/16 00:39 10/12/16 08:37 Objective Remarks GENERAL: Overweight middle aged male in no distress. SKIN: Warm and dry. Double infusaport to R chest asymptomatic. HEAD: Normocephalic. EYES: No scleral icterus. No injection or drainage. NECK: Supple, trachea midline. CARDIOVASCULAR: +S1/S2. RESPIRATORY: Breath sounds equal bilaterally. No accessory muscle use. GASTROINTESTINAL: Abdomen soft, non-tender, nondistended. EXTREMITIES: No cyanosis, or edema. NEUROLOGICAL: Normal speech, moving all extremitites. Assessment/Plan Problem List: (1) AML (acute myeloid leukemia) Status: Acute Plan: 10/12: Mildly tachycardic today in the 110's, but no fever. PRBC x 2 ordered today. [employer] replacing potassium per protocol for level of 3.2. Will monitor blood counts, heart rate. Plan for repeat BMB on this upcoming week. 10/11: Spiked a fever this morning to 101.8. Will order blood cultures x 2, check UA. No longer tachycardic. Continue IV Abx. Transfuse 1 unit platelets today. 10/10: afebrile today. tolerating blood and platelet transfusions. will keep in ICU another night as he remains tachycardic. 10/09: bone marrow biopsy today. 1 unit platelets, 2 units pRBC. spiked fever 103F. cefepime started. spoke with ID, who advised me to start Daptomycin and Micafungin. transferred to ICU after becoming tachy in 140s 10/08: day 13. 1 unit platelets. bone marrow biopsy tomorrow. 10/07: flow cytometry results returned showing NPM1 + and FLT3 +. I obtained the original pathology again from to double check and the original FLT3 was NEGATIVE. NPM1 mutation was detected 43.4%, KIT mutation not detected. 46XY 10/06: 2 units pRBC today. plan to do bone marrow biopsy AM. 10/05: 1 unit platelets today 10/04: D9. no fever. 10/03: D8. no transfusion. monitor for fever 10/02: Will give 1 unit PRBC's, platelets today. Plan for repeat BMB on 10/10. 10/01: Finished chemotherapy yesterday. Tolerated well. 1 unit irradiated PRBC's to be transfused today. Continue to closely monitor blood counts. 09/30: D5. last day of chemotherapy. will give 1 unit platelets. 09/29: D4. continue chemotherapy. no transfusion. 09/28: D3. 09/27: D2 09/26: Start on CLAG-M chemotherapy for relapsed AML. Received Neupogen yesterday. He spiked a fever this afternoon of 101.3. BC, UA, and CXR ordered. Will start pt on Cefepime. Await BC results. -- He has been getting CBC q2 weeks. On 09/18 it was noted that he had a white count at 11k and a platelet count of 76k. Blasts were at 38%. He was brought in to the clinic on 09/24 for a bone marrow biopsy. A CBC was done and showed a white count of 63.7, Hgb 12.2, and platelet count was 33K. The blasts were at 73 %. Decision was made at that time to admit for salvage chemo. History: 11/04/16: AML Diagnosis made. 46XY, +NPM1 mutation detected, FLT3 negative-- indicates favorable prognosis. 11/05-11/28: Initial induction with MELL-C and idarubicin (7+3). STAT Leukapheresis due to leukostasis. On D25, repeat bone marrow showed residual leukemia. 12/06-12/27: Re-induction with FLANG chemotherapy. Repeat bone marrow biopsy negative for residual AML. Patient in Complete Remission 01/06-01/10: C1 consolidation chemotherapy with Mell-C. 02/17-02/21: C2 consolidation chemotherapy with MELL-C. 03/25-03/30: C3 consolidation chemotherapy with MELL-C 04/28-05/02: C4 consolidation chemo with MELL-C (2) Hypertension Status: Acute Plan: -- Hold amlodipine, lisinopril, continue atenolol (3) Diabetes Status: Acute Plan: --on SSI Novolog (4) Fever Status: Acute Plan: -- BC no growth --ID following -- on Cefepime + Daptomycin + Micafungin -- CXR negative --u/a neg (5) DVT prophylaxis Status: Acute Plan: -- Thrombocytopenia; will hold off on chemical prophylaxis at this time. (6) Constipation Status: Acute Plan: --on Colace schedule --PRN laxative --PRN Relistor Assessment 46 y/o male admitted for salvage chemotherapy for relapsed AML. Problem Qualifiers (1) Diabetes: Qualified Code: E11.9 - Type 2 diabetes mellitus without complication, without long-term current use of insulin (2) Fever: Qualified Code: R50.9 - Fever, unspecified fever cause (3) Constipation: Qualified Code: K59.00 - Constipation, unspecified constipation type Valarie Lopez Oct 12, 2016 10:57
[2016-10-12] MEDS: DAPTOmycin INJ 800 MG in SODIUM CHLORIDE 0.9% INJ 100 ML IV SCH (20:10)
[2016-10-12] MEDS: ATENOLOL 50 MG TAB PO SCH (20:11)
[2016-10-12] MEDS: MICAFUNGIN INJ 150 MG in SODIUM CHLORIDE 0.9% INJ 100 ML IV SCH (21:04)
[2016-10-12 21:20] LABS: HEMATOCRIT 24.7 % (39.0-51.0)
[2016-10-12 21:21] LABS: REVIEW FLAG FINAL
[2016-10-13] VITALS: BP 138/90; PULSE 85; RESP 18; TEMP 98; O2SAT 97
[2016-10-13] MEDS: SODIUM CHLOR 0.9% 1000 ML INJ 1,000 ML IV SCH ×2 (03:46→21:46)
[2016-10-13] MEDS: CEFEPIME INJ 2,000 MG in SODIUM CHLORIDE 0.9% INJ 100 ML IV SCH ×2 (03:46→11:12)
[2016-10-13 04:00] VITALS: BP 143/94; PULSE 86; RESP 18; TEMP 96.2; O2SAT 96
[2016-10-13 04:07] LABS: HEMATOCRIT 24.7 % (39.0-51.0); MEAN CELL VOLUME 82.7 FL (80.0-100.0); MEAN CORPUSCULAR HEMOGLOBIN 29.5 PG (27.0-34.0); MEAN CORPUSCULAR HGB CONC 35.7 % (32.0-36.0); RED BLOOD COUNT 2.99 MIL/MM3 (4.50-5.90); RED CELL DISTRIBUTION WIDTH 15.2 % (11.6-17.2); WHITE BLOOD COUNT 0.2 TH/MM3 (4.0-11.0)
[2016-10-13 04:13] LABS: HEMO FLAGS AUTO DIFF
[2016-10-13 04:14] LABS: PLATELET COUNT 16 TH/MM3 (150-450)
[2016-10-13 04:18] LABS: ALT (GPT) 13 U/L (12-78); ANION GAP 6 MEQ/L (5-15); AST (GOT) LESS THAN 3 U/L (15-37); BICARBONATE 31.8 MEQ/L (21.0-32.0); BLOOD UREA NITROGEN 7 MG/DL (7-18); CHLORIDE 102 MEQ/L (98-107); GLOMERULAR FILTRATION RATE 217 ML/MIN (>89); POTASSIUM 3.6 MEQ/L (3.5-5.1); SODIUM (NA) 140 MEQ/L (136-145)
[2016-10-13 04:20] LABS: ALKALINE PHOSPHATASE 110 U/L (45-117); TOTAL BILIRUBIN ADULT 0.9 MG/DL (0.2-1.0)
[2016-10-13 06:07] LABS: BANDS 1 % (0-6); PLATELET ESTIMATE SMEAR LOW (NORMAL); POLYS (SEG NEUTROPHILS) 4 % (16-70); SCAN/DIFF FINAL DIFF MANUAL; WBC DIFF SAMPLE 100
[2016-10-13 06:08] LABS: PLATELET MORPHOLOGY NORMAL (NORMAL)
[2016-10-13] MEDS: INSULIN ASPART SUPPLEMENTAL SCALE SQ SCH ×4 (07:00→21:50)
--- NOTE | 2016-10-13 08:06 | HHI.PR ---
Subjective Remarks resting comfortably with no distress. remains afebrile. no new complaints. Objective Vitals Vital Signs Date Time Temp Pulse Resp B/P Pulse Ox O2 Delivery O2 Flow Rate FiO2 10/13/16 04:00 96.2 86 18 143/94 96 10/13/16 00:00 98.0 85 18 138/90 97 10/12/16 22:03 18 10/12/16 21:30 98.1 90 18 146/90 97 10/12/16 20:00 98.2 92 16 137/85 10/12/16 15:00 97 10/12/16 15:00 98.5 91 20 125/78 96 10/12/16 11:00 98.8 92 20 140/93 96 10/12/16 11:00 92 10/12/16 09:52 98.3 116 20 143/91 95 I/O 10/12/16 10/12/16 10/12/16 10/13/16 10/13/16 10/13/16 07:00 15:00 23:00 07:00 15:00 23:00 Intake Total 3169 ml 4060 ml 640 ml Output Total 1800 ml 3850 ml Balance 1369 ml 210 ml 640 ml Intake Oral 1940 ml 1740 ml 240 ml IV Total 1229 ml 1820 ml 400 ml Packed Cells 500 ml Output Urine Total 1800 ml 3850 ml # Voids 4 # Bowel Movements 0 1 Result Diagram: 10/13/16 0355 10/13/16 0355 Imaging Last Impressions Chest X-Ray 10/09/16 0000 Signed Impressions: Service Date/Time: October 11:31 - CONCLUSION: The lungs are clear. Isai Blanco MD Objective Remarks GENERAL: This is a well-nourished, well-developed patient, in no apparent distress. CARDIOVASCULAR: Regular rate and regular rhythm without murmurs, gallops, or rubs. RESPIRATORY: Clear to auscultation. Breath sounds equal bilaterally. No wheezes , rales, or rhonchi. GASTROINTESTINAL: Abdomen soft, non-tender, nondistended. Normal, active bowel sounds MUSCULOSKELETAL: Extremities without clubbing, cyanosis, or edema. NEURO: Alert & Oriented x4 to person, place, time, situation. Moves all ext x4 Medications and IVs Current Medications Acetaminophen (Tylenol) 650 mg Q4H PRN PO PAIN SCALE 0-3 OR TEMP> 100.5F Last administered on 10/10/16 21:16; Start 09/25/16 at 08:45 Oxycodone HCl (Roxicodone) 5 mg Q3H PRN PO PAIN SCALE 4 TO 7 Last administered on 10/12/16 21:03; Start 09/25/16 at 08:45 Oxycodone HCl (Roxicodone) 10 mg Q3H PRN PO PAIN SCALE 8 TO 10 Last administered on 09/30/16 12:12; Start 09/25/16 at 08:45 Heparin Sodium (Porcine) (Heparin Central Flush) 500 units UNSCH IVF ; Start at 08:45 Sodium Chloride (NS Flush) 5 ml UNSCH PRN IVF SEE PROTOCOL; Start 09/25/16 at 08:45 Heparin Sodium (Porcine) 250 units 250 units UNSCH PRN IVF SEE PROTOCOL; Start 09/25/16 at 08:45 Filgrastim/ Dextrose (Neupogen Inj/ D5W Inj) 31.6 ml @ 126.4 mls/ hr ONCE ONCE IV Last administered on 09/25/16 11:49; Start 09/25/16 at 11:00; Stop at 11:14; Status DC Morphine Sulfate (Morphine Inj) 4 mg Q2H PRN IV PAIN SCALE 8 TO 10; Start 09/25 at 10:15 Morphine Sulfate 8 mg 8 mg Q2H PRN IV PUSH PAIN SCALE 8 TO 10; Start 09/25/16 at 10:15 Sodium Chloride (NS 1000 ml Inj) 1,000 ml @ 100 mls/hr Q10H IV Last administered on 10/03/16 10:18; Start 09/25/16 at 10:15; Stop 10/03/16 at 15:04 ; Status DC Allopurinol (Zyloprim) 300 mg DAILY PO Last administered on 10/01/16 09:31; Start 09/25/16 at 10:30; Stop 10/02/16 at 07:49; Status DC Amlodipine Besylate (Norvasc) 10 mg DAILY PO Last administered on 09/26/16 09: 49; Start 09/26/16 at 09:00; Stop 09/28/16 at 13:20; Status DC Atenolol (Tenormin) 100 mg DAILY PO ; Start 09/26/16 at 09:00; Stop 09/26/16 at 09:00; Status DC Diazepam (Valium) 10 mg HS PO Last administered on 10/08/16 22:27; Start at 21:00; Stop 10/09/16 at 07:02; Status DC Metformin HCl (Glucophage) 850 mg DAILY PO Last administered on 09/29/16 09:13 ; Start 09/26/16 at 09:00; Stop 09/29/16 at 10:34; Status DC Sertraline HCl (Zoloft) 50 mg DAILY PO Last administered on 10/12/16 08:36; Start 09/26/16 at 09:00 Oxycodone HCl (Roxicodone) 5 mg QID PO Last administered on 10/01/16 13:49; Start 09/25/16 at 13:00; Stop 10/09/16 at 17:55; Status DC Lisinopril (Prinivil) 20 mg DAILY PO Last administered on 09/26/16 09:49; Start 09/26/16 at 09:00; Stop 09/27/16 at 12:04; Status DC Miscellaneous Medication ([facility]) FOR PATIENTS W... UNSCH PRN XX SEE LABEL COMMENTS; Start 09/25/16 at 10:15 Sodium Chloride (NS Flush) 2 ml BID IVF Last administered on 10/12/16 20:11; Start 09/25/16 at 21:00 Sodium Chloride (NS Flush) 2 ml UNSCH PRN IVF FLUSH AFTER USING IV ACCESS; Start 09/25/16 at 10:15 Magnesium Hydroxide (Milk Of Magnesia Liq) 15 ml DAILY PRN PO CONSTIPATION; Start 09/25/16 at 10:15 Promethazine HCl (Phenergan) 25 mg Q4H PRN PO NAUSEA OR VOMITING; Start at 10:15 Prochlorperazine Maleate (Compazine) 10 mg Q4H PRN PO NAUSEA OR VOMITING; Start 09/25/16 at 10:15 Prochlorperazine Edisylate (Compazine Inj) 10 mg Q4H PRN IV NAUSEA OR VOMITING ; Start 09/25/16 at 10:15 Lorazepam (Ativan) 0.5 mg DAILY PRN PO ANXIETY; Start 09/25/16 at 10:15; Stop 10/09/16 at 07:02; Status DC Lorazepam (Ativan Inj) 0.5 mg DAILY PRN IV ANXIETY; Start 09/25/16 at 10:15; Stop 10/09/16 at 07:03; Status DC Temazepam (Restoril) 15 mg HS PRN PO INSOMNIA; Start 09/25/16 at 10:15; Stop at 07:03; Status DC Loperamide HCl (Imodium) 2 mg UNSCH PRN PO AFTER EACH LOOSE STOOL; Start at 10:15 Al Hydrox/Mg Hydrox/Simethicone (Mag-Al Plus Susp Liq) 30 ml Q4H PRN PO INDIGESTION; Start 09/25/16 at 10:15 Alteplase, Recombinant 2 mg 2 mg UNSCH PRN IVF SEE LABEL COMMENTS Last administered on 10/10/16 09:09; Start 09/25/16 at 10:15 Ondansetron HCl/ Dextrose (Zofran Inj/D5W Inj) 54 ml @ 216 mls/hr Q8H PRN IV PUSH NAUSEA OR VOMITING Last administered on 09/27/16 02:13; Start 09/25/16 at 10:30 Amphetamine/ Dextroamphetamine (Adderall Xr) 15 mg DAILY PO Last administered on 09/26/16 09:45; Start 09/26/16 at 09:00; Stop 09/26/16 at 13:53; Status DC Amphetamine/ Dextroamphetamine (Adderall Xr) 10 mg DAILY PO ; Start 09/26/16 at 09:00; Stop 09/26/16 at 13:53; Status DC Atenolol (Tenormin) 100 mg DAILY@2100 PO Last administered on 10/09/16 21:45; Start 09/25/16 at 21:00; Stop 10/10/16 at 12:41; Status DC Docusate Sodium 100 mg 100 mg TID PO Last administered on 10/12/16 08:36; Start 09/25/16 at 18:00 Filgrastim 480 mcg/Sodium Chloride 51.6 ml @ 103.2 mls/ hr DAILY IV ; Start at 09:00; Stop 09/30/16 at 09:29; Status Cancel Sodium Chloride 250 ml @ 100 mls/hr DAILY IV ; Start 09/26/16 at 09:00; Stop at 10:32; Status DC Granisetron HCl 1 mg/Dexamethasone Sodium Phosphate 20 mg/Sodium Chloride 56 ml @ 112 mls/hr Q24H IV ; Start 09/26/16 at 10:00; Stop 09/26/16 at 10:30; Status DC Sodium Chloride 250 ml @ 100 mls/hr DAILY IV ; Start 09/26/16 at 12:00; Stop at 12:00; Status DC Granisetron HCl 1 mg/Dexamethasone Sodium Phosphate 20 mg/Sodium Chloride 56 ml @ 112 mls/hr Q24H IV Last administered on 09/30/16 12:13; Start 09/26/16 at 12:00; Stop 09/30/16 at 12:29; Status DC Sodium Chloride 250 ml @ 100 mls/hr Q24H IV Last administered on 09/30/16 13: 26; Start 09/26/16 at 13:00; Stop 10/10/16 at 12:52; Status DC Sodium Chloride 250 ml @ 100 mls/hr Q24H IV Last administered on 10/10/16 20: 55; Start 09/26/16 at 20:00 Cladribine 12 mg/ Sodium Chloride 512 ml @ 256 mls/hr Q24H IV Last administered on 09/30/16 13:30; Start 09/26/16 at 13:00; Stop 09/30/16 at 14:59 ; Status DC Cytarabine 4800 mg/Dextrose 500 ml @ 125 mls/hr Q24H IV Last administered on 20:06; Start 09/26/16 at 14:00; Stop 09/27/16 at 19:20; Status DC Mitoxantrone HCl 24 mg/Sodium Chloride 62 ml @ 372 mls/hr Q24H IV ; Start 09/26 at 18:00; Stop 09/27/16 at 00:39; Status DC Filgrastim 480 mcg/Sodium Chloride 51.6 ml @ 206.4 mls/ hr Q24H IV Last administered on 09/30/16 13:00; Start 09/26/16 at 12:30; Stop 09/30/16 at 12:44 ; Status DC Cefepime HCl/ Sodium Chloride (Maxipime Inj/NS Inj) 100 ml @ 200 mls/hr Q8H IV Last administered on 09/30/16 05:34; Start 09/26/16 at 14:00; Stop 09/30/16 at 09:03; Status DC Amphetamine/ Dextroamphetamine (Adderall Xr) 15 mg DAILY PO Last administered on 10/12/16 08:36; Start 09/27/16 at 09:00 Bisacodyl 5 mg 5 mg DAILY PRN PO CONSTIPATION; Start 09/26/16 at 14:45 Mitoxantrone HCl/ Sodium Chloride (Novantrone Inj/ NS Inj) 62 ml @ 372 mls/hr DAILY@01 IV Last administered on 09/29/16 01:51; Start 09/27/16 at 01:00; Stop 09/29/16 at 01:09; Status DC Lisinopril (Prinivil) 10 mg DAILY PO Last administered on 09/30/16 09:22; Start 09/28/16 at 09:00; Status Hold Fluconazole 200 mg 200 mg DAILY PO Last administered on 10/10/16 09:09; Start 09/27/16 at 13:00; Status Hold Cytarabine 4800 mg/Dextrose 500 ml @ 125 mls/hr DAILY@20 IV Last administered on 09/28/16 20:48; Start 09/27/16 at 20:00; Stop 09/28/16 at 18:41; Status DC Sodium Chloride (NS 250 ml Inj) 250 ml @ 15 mls/hr ONCE ONCE IV Last administered on 09/28/16 09:45; Start 09/28/16 at 09:45; Stop 09/29/16 at 02:24 ; Status DC Acetaminophen (Tylenol) 650 mg Q4H PRN PO SEE LABEL COMMENTS; Start 09/28/16 at 09:45; Stop 09/28/16 at 13:46; Status DC Amlodipine Besylate 5 mg 5 mg DAILY PO Last administered on 09/30/16 09:22; Start 09/29/16 at 09:00; Status Hold Cytarabine/ Dextrose ([place] C Inj/D5W 500 ml Inj) 500 ml @ 125 mls/hr DAILY@2030 IV Last administered on 09/30/16 18:05; Start 09/28/16 at 20:30; Stop at 23:59; Status DC Dextrose (D50w (Vial) Inj) 25 ml UNSCH PRN IV PUSH HYPOGLYCEMIA-SEE COMMENTS; Start 09/29/16 at 10:45 Glucagon (Glucagon Inj) 1 mg UNSCH PRN OTHER HYPOGLYCEMIA-SEE COMMENTS; Start 09/29/16 at 10:45 Insulin Aspart 1 1 ACHS SLIDING SCALE SQ Last administered on 10/12/16 21:00; Start 09/29/16 at 11:00 Sodium Chloride (NS 250 ml Inj) 250 ml @ 15 mls/hr ONCE ONCE IV Last administered on 09/29/16 22:22; Start 09/29/16 at 18:15; Stop 09/30/16 at 10:54 ; Status DC Acetaminophen (Tylenol) 650 mg Q4H PRN PO SEE LABEL COMMENTS Last administered on 09/29/16 22:03; Start 09/29/16 at 20:00; Stop 09/30/16 at 00:01; Status DC Diphenhydramine HCl 25 mg 25 mg Q4H PRN PO SEE LABEL COMMENTS Last administered on 09/29/16 22:04; Start 09/29/16 at 20:00; Stop 09/30/16 at 00:01 ; Status DC Sodium Chloride (NS 250 ml Inj) 250 ml @ 15 mls/hr ONCE ONCE IV Last administered on 09/30/16 10:45; Start 09/30/16 at 08:15; Stop 10/01/16 at 00:54 ; Status DC Acetaminophen (Tylenol) 650 mg Q4H PRN PO SEE LABEL COMMENTS Last administered on 09/30/16 09:22; Start 09/30/16 at 08:15; Stop 09/30/16 at 12:16; Status DC Diphenhydramine HCl (Benadryl) 25 mg Q4H PRN PO SEE LABEL COMMENTS Last administered on 09/30/16 09:21; Start 09/30/16 at 08:15; Stop 09/30/16 at 12:16 ; Status DC Levofloxacin (Levaquin) 500 mg DAILY@11 PO Last administered on 10/09/16 10:55 ; Start 10/01/16 at 11:00; Stop 10/09/16 at 18:36; Status DC Methylnaltrexone [place] 12 mg 12 mg ONCE ONCE SQ Last administered on 13:33; Start 09/30/16 at 11:30; Stop 09/30/16 at 11:44; Status DC Sodium Chloride (NS 250 ml Inj) 250 ml @ 15 mls/hr ONCE ONCE IV Last administered on 09/30/16 23:00; Start 09/30/16 at 16:00; Stop 10/01/16 at 08:39 ; Status DC Diphenhydramine HCl (Benadryl) 25 mg Q4H PRN PO SEE LABEL COMMENTS; Start 09/30 at 16:00; Stop 09/30/16 at 20:01; Status DC Acetaminophen (Tylenol) 650 mg Q4H PRN PO FOR BLOOD PRODUCTS Last administered on 10/12/16 08:36; Start 09/30/16 at 22:00 Diphenhydramine HCl 25 mg 25 mg Q4H PRN PO FOR BLOOD PRODUCTS Last administered on 10/12/16 08:35; Start 09/30/16 at 22:00 Sodium Chloride 250 ml @ 15 mls/hr ONCE ONCE IV Last administered on 10:57; Start 10/01/16 at 09:15; Stop 10/02/16 at 01:54; Status DC Sodium Chloride (NS 250 ml Inj) 250 ml @ 15 mls/hr ONCE ONCE IV Last administered on 10/02/16 13:27; Start 10/02/16 at 10:30; Stop 10/03/16 at 03:09 ; Status DC Furosemide (Lasix Inj) 20 mg ONCE ONCE IV PUSH Last administered on 10/02/16 13:27; Start 10/02/16 at 11:00; Stop 10/02/16 at 11:01; Status DC Diazepam 5 mg 5 mg ONCE ONCE PO Last administered on 10/05/16 11:52; Start 10/05/16 at 10:15; Stop 10/05/16 at 10:16; Status DC Sodium Chloride (NS 250 ml Inj) 250 ml @ 15 mls/hr ONCE ONCE IV Last administered on 10/06/16 11:38; Start 10/06/16 at 08:15; Stop 10/07/16 at 00:54; Status DC Acetaminophen (Tylenol) 650 mg Q4H PRN PO SEE LABEL COMMENTS; Start 10/06/16 at 08:15; Stop 10/06/16 at 12:16; Status DC Diphenhydramine HCl 25 mg 25 mg Q4H PRN PO SEE LABEL COMMENTS; Start 10/06/16 at 08:15; Stop 10/06/16 at 12:16; Status DC Sodium Chloride (NS 250 ml Inj) 250 ml @ 15 mls/hr ONCE ONCE IV Last administered on 10/08/16 10:40; Start 10/08/16 at 08:30; Stop 10/09/16 at 01:09; Status DC Acetaminophen (Tylenol) 650 mg Q4H PRN PO SEE LABEL COMMENTS; Start 10/08/16 at 08:30; Stop 10/08/16 at 12:31; Status DC Diphenhydramine HCl (Benadryl) 25 mg Q4H PRN PO SEE LABEL COMMENTS; Start at 08:30; Stop 10/08/16 at 12:31; Status DC Hydromorphone HCl (Dilaudid Pf Inj) 1 mg ONCE ONCE IV PUSH Last administered on 10/09/16 07:30; Start 10/09/16 at 07:00; Stop 10/09/16 at 07:01; Status DC Multi-Ingredient Mouthwash/Gargle (Magic Mouthwash Adult Liq) 5 ml QID SWISH- SWAL Last administered on 10/12/16 20:11; Start 10/08/16 at 21:00; Stop at 19:09 Diazepam (Valium) 10 mg Q8HR PRN PO ANXIETY Last administered on 10/12/16 23:10 ; Start 10/09/16 at 07:01 Diazepam (Valium) 10 mg ONCE ONCE PO Last administered on 10/09/16 07:07; Start 10/09/16 at 07:15; Stop 10/09/16 at 07:16; Status DC Lidocaine HCl 20 ml 20 ml ONCE ONCE INFIL ; Start 10/09/16 at 07:15; Stop at 07:16; Status DC Sodium Chloride (NS 250 ml Inj) 250 ml @ 15 mls/hr ONCE ONCE IV Last administered on 4/6/17at 10:05; Start 10/09/16 at 07:15; Stop 10/09/16 at 23:54; Status DC Acetaminophen (Tylenol) 650 mg Q4H PRN PO SEE LABEL COMMENTS; Start 10/09/16 at 07:15; Stop 10/09/16 at 11:16; Status DC Diphenhydramine HCl 25 mg 25 mg Q4H PRN PO SEE LABEL COMMENTS; Start 10/09/16 at 07:15; Stop 10/09/16 at 11:16; Status DC Sodium Chloride (NS 250 ml Inj) 250 ml @ 15 mls/hr ONCE ONCE IV Last administered on 10/09/16 12:28; Start 10/09/16 at 07:15; Stop 10/09/16 at 23:54; Status DC Lidocaine/ Epinephrine (Xylocaine-Epi 1%-1:100,000 Inj) 20 ml ONCE ONCE INFIL ; Start 10/09/16 at 07:15; Stop 10/09/16 at 07:17; Status DC Lidocaine/ Epinephrine (Xylocaine-Epi 2%-1:100,000 Inj) 30 ml ONCE ONCE INFIL ; Start 10/09/16 at 07:15; Stop 10/09/16 at 07:17; Status DC Lidocaine HCl 50 ml 50 ml STK-MED ONCE .ROUTE ; Start 10/09/16 at 07:10; Stop 10/09/16 at 07:11; Status DC Cefepime HCl 2000 mg/Sodium Chloride 100 ml @ 200 mls/hr Q8H IV Last administered on 10/13/16 03:46; Start 10/09/16 at 11:00 Sodium Chloride 1,000 ml @ 100 mls/hr Q10H IV Last administered on 10/09/16 18 :01; Start 10/09/16 at 18:00; Stop 10/09/16 at 20:39; Status DC Daptomycin 800 mg/ Sodium Chloride 100 ml @ 200 mls/hr Q24H IV Last administered on 10/12/16 20:10; Start 10/09/16 at 20:00 Micafungin Sodium 150 mg/Sodium Chloride 100 ml @ 100 mls/hr Q24H IV Last administered on 10/12/16 21:04; Start 10/09/16 at 20:00 Sodium Chloride (NS 1000 ml Inj) 1,000 ml @ 125 mls/hr Q8H IV Last administered on 10/11/16t 14:08; Start 10/09/16 at 21:00; Stop 10/12/16 at 10:00; Status DC Diphenhydramine HCl (Benadryl) 25 mg UNSCH X1 PO ; Start 10/10/16 at 07:00; Stop 10/10/16 at 07:01; Status DC Acetaminophen 325 mg 325 mg UNSCH X1 PO ; Start 10/10/16 at 07:00; Stop 10/10/16 at 07:01; Status DC Potassium Chloride 100 ml @ 50 mls/hr Q2H PRN IV For Potassium 2.8 - 3.2 mEq/L ; Start 10/10/16 at 12:45; Stop 10/11/16 at 07:49; Status DC Potassium Chloride 100 ml @ 50 mls/hr Q2H PRN IV For Potassium 2.8 - 3.2 mEq/L ; Start 10/10/16 at 12:45; Stop 10/11/16 at 07:49; Status DC Potassium Chloride 100 ml @ 25 mls/hr UNSCH PRN IV For Potassium 3.3 - 3.5 mEq /L Last administered on 10/11/16t 07:16; Start 10/10/16 at 12:45; Stop 10/11/16 at 07:49; Status DC Potassium Chloride 100 ml @ 50 mls/hr Q2H PRN IV For Potassium 3.3 - 3.5 mEq/L ; Start 10/10/16 at 12:45; Stop 10/11/16 at 07:49; Status DC Magnesium Sulfate/ Sodium Chloride (Magnesium Sulfate Inj/NS Inj) 100 ml @ 50 mls/hr UNSCH PRN IV For Magnesium 0.9 - 1.1 mg/dL; Start 10/10/16 at 12:45; Stop 10/11/16 at 07:49; Status DC Magnesium Oxide 800 mg 800 mg UNSCH PRN PO For Magnesium 1.2 - 1.6 mg/dL; Start 10/10/16 at 12:45; Stop 10/11/16 at 07:49; Status DC Magnesium Sulfate/ Sodium Chloride (Magnesium Sulfate Inj/NS Inj) 100 ml @ 50 mls/hr UNSCH PRN IV For Magnesium 1.2 - 1.6 mg/dL; Start 10/10/16 at 12:45; Stop 10/11/16 at 07:49; Status DC Potassium Phosphate 2000 mg 2,000 mg Q4H PRN PO For Phosphorus < 2.5 mg/dL; Start 10/10/16 at 12:45; Stop 10/11/16 at 07:49; Status DC Sodium Phosphate/ Sodium Chloride (Sodium Phosphate Inj/NS 250 ml Inj) 250 ml @ 42 mls/hr UNSCH PRN IV For Phosphorus < 2.5 mg/dL Last administered on 08:40; Start 10/10/16 at 12:45; Stop 10/11/16 at 07:49; Status DC Potassium Phosphate 2000 mg 2,000 mg UNSCH PRN PO/TUBE SEE LABEL COMMENTS; Start 10/10/16 at 12:45; Stop 10/11/16 at 07:49; Status DC Potassium Phosphate/Sodium Chloride (Potassium Phosphate Inj/NS 250 ml Inj) 260 ml @ 42 mls/hr UNSCH PRN IV SEE LABEL COMMENTS; Start 10/10/16 at 12:45; Stop 10/11/16 at 07:49; Status DC Atenolol 50 mg 50 mg HS PO Last administered on 10/12/16 20:11; Start 10/10/16 at 22:45 Potassium Chloride 100 ml @ 50 mls/hr Q2H PRN IV-CENTRAL For Potassium 2.8 - 3.2 mEq/L; Start 10/11/16 at 07:45 Potassium Chloride 100 ml @ 50 mls/hr Q2H PRN IV For Potassium 2.8 - 3.2 mEq/ L Last administered on 10/12/16 15:03; Start 10/11/16 at 07:45 Potassium Chloride 100 ml @ 25 mls/hr UNSCH PRN IV-CENTRAL For Potassium 3.3 - 3.5 mEq/L; Start 10/11/16 at 07:45 Potassium Chloride 100 ml @ 50 mls/hr Q2H PRN IV For Potassium 3.3 - 3.5 mEq/L ; Start 10/11/16 at 07:45 Magnesium Sulfate/ Sodium Chloride (Magnesium Sulfate Inj/NS Inj) 100 ml @ 50 mls/hr UNSCH PRN IV For Magnesium 0.9 - 1.1 mg/dL; Start 10/11/16 at 07:45 Magnesium Oxide 800 mg 800 mg UNSCH PRN PO For Magnesium 1.2 - 1.6 mg/dL; Start 10/11/16 at 07:45 Magnesium Sulfate/ Sodium Chloride (Magnesium Sulfate Inj/NS Inj) 100 ml @ 50 mls/hr UNSCH PRN IV For Magnesium 1.2 - 1.6 mg/dL; Start 10/11/16 at 07:45 Potassium Phosphate 2000 mg 2,000 mg Q4H PRN PO For Phosphorus < 2.5 mg/dL; Start 10/11/16 at 07:45 Sodium Phosphate/ Sodium Chloride (Sodium Phosphate Inj/NS 250 ml Inj) 250 ml @ 42 mls/hr UNSCH PRN IV For Phosphorus < 2.5 mg/dL; Start 10/11/16 at 07:45 Potassium Phosphate 2000 mg 2,000 mg UNSCH PRN PO/TUBE SEE LABEL COMMENTS; Start 10/11/16 at 07:45 Potassium Phosphate 30 mmol/ Sodium Chloride 260 ml @ 42 mls/hr UNSCH PRN IV SEE LABEL COMMENTS; Start 10/11/16 at 07:45 Sodium Chloride (NS 250 ml Inj) 250 ml @ 15 mls/hr ONCE ONCE IV Last administered on 10/11/16 08:41; Start 10/11/16 at 08:15; Stop 10/12/16 at 00:54; Status DC Acetaminophen 650 mg 650 mg Q4H PRN PO SEE LABEL COMMENTS; Start 10/11/16 at 08: 30; Stop 10/11/16 at 12:31; Status DC Sodium Chloride 1,000 ml @ 75 mls/hr [id number] IV Last administered on 03:46; Start 10/12/16 at 02:15 Sodium Chloride (NS 250 ml Inj) 250 ml @ 15 mls/hr ONCE ONCE IV Last administered on 10/12/16 08:37; Start 10/12/16 at 08:00; Stop 10/13/16 at 00:39; Status DC Acetaminophen (Tylenol) 650 mg Q4H PRN PO SEE LABEL COMMENTS; Start 10/12/16 at 08:00; Stop 10/12/16 at 12:01; Status DC Diphenhydramine HCl (Benadryl) 25 mg Q4H PRN PO SEE LABEL COMMENTS; Start at 08:00; Stop 10/12/16 at 12:01; Status DC Furosemide 20 mg 20 mg ONCE ONCE IV Last administered on 10/12/16 08:37; Start 10/12/16 at 08:00; Stop 10/12/16 at 08:01; Status DC Sodium Chloride (NS 250 ml Inj) 250 ml @ 15 mls/hr ONCE ONCE IV Last administered on 10/12/16 11:09; Start 10/12/16 at 10:00; Stop 10/13/16 at 02:39; Status DC A/P Assessment and Plan A/P Neutropenic fever Improved Continue antibiotics blood cultures negative. ID is following. Acute myeloid leukemia Oncology following Treatment planning in process Treat symptoms for now Pancytopenia Anemia Related to AML management per Oncology Hypokalemia-resolved. Hypertension Follow BP Continue present treatments Diabetes mellitus Follow blood sugars Diabetic Diet Depression No change to baseline management No exacerbations Hypophosphatemia-resolved Edu Marti MD Oct 13, 2016 08:06
[2016-10-13 08:30] VITALS: BP 143/95; PULSE 89; TEMP 97.9; O2SAT 97
[2016-10-13] MEDS: DOCUSATE SODIUM 100 MG CAP PO SCH ×3 (09:00→16:51)
[2016-10-13] MEDS: SODIUM CHLORIDE 10 ML FLUSH BID IVF SCH ×2 (09:00→21:50)
[2016-10-13] MEDS: DEXTROAMPHETAMINE/AMPHETAMINE XR 15 MG CAP PO SCH (09:05)
[2016-10-13] MEDS: NYSTAT/DIPHENHY/LIDO MOUTHWASH (Adult) 120ML SWISH-SWAL SCH ×4 (09:05→21:47)
[2016-10-13] MEDS: SERTRALINE HCL 50 MG TAB PO SCH (09:05)
[2016-10-13] MEDS ORDERED: FILGRASTIM INJ 480 MCG in DEXTROSE 5% IN WATER INJ 48.4 ML IV ONE ×2 (15:00)
--- NOTE | 2016-10-13 15:05 | PD.ONC.PN ---
Subjective Subjective Remarks Afebrile overnight. Patient anxious after being told his bone marrow biopsy results that he still has 70% blasts. He and his are discussing whether to continue induction chemotherapy or try to enter a clinical trial. Objective Data Date Time Temp Pulse Resp B/P Pulse Ox O2 Delivery O2 Flow Rate FiO2 10/13/16 08:30 97.9 89 143/95 97 10/13/16 04:00 96.2 86 18 143/94 96 10/13/16 00:00 98.0 85 18 138/90 97 10/12/16 22:03 18 10/12/16 21:30 98.1 90 18 146/90 97 10/12/16 20:00 98.2 92 16 137/85 10/12/16 15:00 97 10/12/16 15:00 98.5 91 20 125/78 96 Result Diagram: 10/13/16 0355 10/13/16 0355 Laboratory Results Laboratory Tests Test 10/12/16 10/13/16 20:35 03:55 Hemoglobin 9.0 GM/DL 8.8 GM/DL Hematocrit 24.7 % 24.7 % Potassium Level 3.6 MEQ/L 3.6 MEQ/L White Blood Count 0.2 TH/MM3 Red Blood Count 2.99 MIL/MM3 Mean Corpuscular Volume 82.7 FL Mean Corpuscular Hemoglobin 29.5 PG Mean Corpuscular Hemoglobin 35.7 % Concent Red Cell Distribution Width 15.2 % Platelet Count 16 TH/MM3 Mean Platelet Volume 6.8 FL Neutrophils (%) (Auto) % Lymphocytes (%) (Auto) % Monocytes (%) (Auto) % Eosinophils (%) (Auto) % Basophils (%) (Auto) % Neutrophils # (Auto) TH/MM3 Lymphocytes # (Auto) TH/MM3 Monocytes # (Auto) TH/MM3 Eosinophils # (Auto) TH/MM3 Basophils # (Auto) TH/MM3 CBC Comment AUTO DIFF Differential Total Cells 100 Counted Neutrophils % (Manual) 4 % Band Neutrophils % 1 % Lymphocytes % 93 % Monocytes % 2 % Neutrophils # (Manual) 0.0 TH/MM3 Differential Comment FINAL DIFF MANUAL Platelet Estimate LOW Platelet Morphology Comment NORMAL Sodium Level 140 MEQ/L Chloride Level 102 MEQ/L Carbon Dioxide Level 31.8 MEQ/L Anion Gap 6 MEQ/L Blood Urea Nitrogen 7 MG/DL Creatinine 0.42 MG/DL Estimat Glomerular Filtration 217 ML/MIN Rate Random Glucose 116 MG/DL Calcium Level 8.3 MG/DL Phosphorus Level 3.0 MG/DL Total Bilirubin 0.9 MG/DL Aspartate Amino Transf LESS THAN 3 U/L (AST/SGOT) Alanine Aminotransferase 13 U/L (ALT/SGPT) Alkaline Phosphatase 110 U/L Total Protein 6.1 GM/DL Albumin 2.9 GM/DL Culture Results Microbiology Date/Time Procedure Status Source Growth 10/11/16 15:15 Aerobic Blood Culture - Preliminary Resulted Blood Peripheral NO GROWTH IN 2 DAYS 10/11/16 15:15 Anaerobic Blood Culture - Preliminary Resulted Blood Peripheral NO GROWTH IN 2 DAYS 10/11/16 15:30 Aerobic Blood Culture - Preliminary Resulted Blood Peripheral NO GROWTH IN 2 DAYS 10/11/16 15:30 Anaerobic Blood Culture - Preliminary Resulted Blood Peripheral NO GROWTH IN 2 DAYS Administered Medications Medications (Trade) Dose Ordered Sig/Génesis Route PRN Reason Start Time Stop Time Status Last Admin Dose Admin Acetaminophen (Tylenol) 650 mg Q4H PRN PO PAIN SCALE 0-3 OR TEMP> 100.5F 09/25/16 08:45 10/10/16 21:16 Oxycodone HCl (Roxicodone) 5 mg Q3H PRN PO PAIN SCALE 4 TO 7 09/25/16 08:45 10/13/16 11:15 Oxycodone HCl (Roxicodone) 10 mg Q3H PRN PO PAIN SCALE 8 TO 10 09/25/16 08:45 09/30/16 12:12 Sertraline HCl (Zoloft) 50 mg DAILY PO 09/26/16 09:00 10/13/16 09:05 Sodium Chloride (NS Flush) 2 ml BID IVF 09/25/16 21:00 10/12/16 20:11 Alteplase, Recombinant 2 mg 2 mg UNSCH PRN IVF SEE LABEL COMMENTS 09/25/16 10:15 10/10/16 09:09 Ondansetron HCl/ Dextrose (Zofran Inj/D5W Inj) 54 ml @ 216 mls/hr Q8H PRN IV PUSH NAUSEA OR VOMITING 09/25/16 10:30 09/27/16 02:13 Docusate Sodium 100 mg 100 mg TID PO 09/25/16 18:00 10/12/16 08:36 Sodium Chloride (NS 250 ml Inj) 250 ml @ 100 mls/hr Q24H IV 09/26/16 20:00 10/10/16 20:55 Amphetamine/ Dextroamphetamine (Adderall Xr) 15 mg DAILY PO 09/27/16 09:00 10/13/16 09:05 Lisinopril (Prinivil) 10 mg DAILY PO 09/28/16 09:00 Hold 09/30/16 09:22 Fluconazole (Diflucan) 200 mg DAILY PO 09/27/16 13:00 Hold 10/10/16 09:09 Amlodipine Besylate (Norvasc) 5 mg DAILY PO 09/29/16 09:00 Hold 09/30/16 09:22 Acetaminophen (Tylenol) 650 mg Q4H PRN PO FOR BLOOD PRODUCTS 09/30/16 22:00 10/12/16 08:36 Diphenhydramine HCl (Benadryl) 25 mg Q4H PRN PO FOR BLOOD PRODUCTS 09/30/16 22:00 10/12/16 08:35 Multi-Ingredient Mouthwash/Gargle (Magic Mouthwash Adult Liq) 5 ml QID SWISH-SWAL 10/08/16 21:00 10/15/16 19:09 10/13/16 12:59 Diazepam 10 mg 10 mg Q8HR PRN PO ANXIETY 10/09/16 07:01 10/12/16 23:10 Cefepime HCl 2000 mg/Sodium Chloride 100 ml @ 200 mls/hr Q8H IV 10/09/16 11:00 10/13/16 11:12 Daptomycin 800 mg/ Sodium Chloride 100 ml @ 200 mls/hr Q24H IV 10/09/16 20:00 10/12/16 20:10 Micafungin Sodium/ Sodium Chloride (Mycamine Inj/NS Inj) 100 ml @ 100 mls/hr Q24H IV 10/09/16 20:00 10/12/16 21:04 Atenolol 50 mg 50 mg HS PO 10/10/16 22:45 10/12/16 20:11 Sodium Chloride (NS 1000 ml Inj) 1,000 ml @ 75 mls/hr [id number] IV 10/12/16 02:15 10/13/16 03:46 Objective Remarks GENERAL: Middle aged male, sitting up in bed in [employer]. SKIN: Warm and dry. +pallor. healing wound left iliac crest. no surrounding erythema, no bleeding HEAD: Normocephalic. EYES: No injection or drainage. NECK: Supple, trachea midline. CARDIOVASCULAR: +S1/S2 RESPIRATORY: Breath sounds equal bilaterally. No accessory muscle use. GASTROINTESTINAL: Abdomen soft, non-tender, nondistended. EXTREMITIES: No cyanosis. NEUROLOGICAL: awake and alert, normal speech. moving all extremities. Assessment/Plan Problem List: (1) AML (acute myeloid leukemia) Status: Acute Plan: 10/13: bone marrow flow shows 70% blasts. d/w patient, repeating induction with CLAG-M chemotherapy or enrolling in a clinical trial. The patient would like to try a second induction with CLAG-M. will give Neupogen today and start tomorrow. 10/12: Mildly tachycardic today in the 110's, but no fever. PRBC x 2 ordered today. [employer] replacing potassium per protocol for level of 3.2. Will monitor blood counts, heart rate. Plan for repeat BMB on this upcoming week. 10/11: Spiked a fever this morning to 101.8. Will order blood cultures x 2, check UA. No longer tachycardic. Continue IV Abx. Transfuse 1 unit platelets today. 10/10: afebrile today. tolerating blood and platelet transfusions. will keep in ICU another night as he remains tachycardic. 10/09: bone marrow biopsy today. 1 unit platelets, 2 units pRBC. spiked fever 103F. cefepime started. spoke with ID, who advised me to start Daptomycin and Micafungin. transferred to ICU after becoming tachy in 140s 10/08: day 13. 1 unit platelets. bone marrow biopsy tomorrow. 10/07: flow cytometry results returned showing NPM1 + and FLT3 +. I obtained the original pathology again from to double check and the original FLT3 was NEGATIVE. NPM1 mutation was detected 43.4%, KIT mutation not detected. 46XY 10/06: 2 units pRBC today. plan to do bone marrow biopsy AM. 10/05: 1 unit platelets today 10/04: D9. no fever. 10/03: D8. no transfusion. monitor for fever 10/02: Will give 1 unit pRBC's, platelets today. Plan for repeat BMB on 10/10. 10/01: Finished chemotherapy yesterday. Tolerated well. 1 unit irradiated PRBC's to be transfused today. Continue to closely monitor blood counts. 09/30: D5. last day of chemotherapy. will give 1 unit platelets. 09/29: D4. continue chemotherapy. no transfusion. 09/28: D3. 09/27: D2 09/26: Start on CLAG-M chemotherapy for relapsed AML. Received Neupogen yesterday. He spiked a fever this afternoon of 101.3. BC, UA, and CXR ordered. Will start pt on Cefepime. Await BC results. -- He has been getting CBC q2 weeks. On 09/18 it was noted that he had a white count at 11k and a platelet count of 76k. Blasts were at 38%. He was brought in to the clinic on 09/24 for a bone marrow biopsy. A CBC was done and showed a white count of 63.7, Hgb 12.2, and platelet count was 33K. The blasts were at 73 %. Decision was made at that time to admit for salvage chemo. History: 11/04/16: AML Diagnosis made. 46XY, +NPM1 mutation detected, FLT3 negative-- indicates favorable prognosis. 11/05-11/28: Initial induction with MELL-C and idarubicin (7+3). STAT Leukapheresis due to leukostasis. On D25, repeat bone marrow showed residual leukemia. 12/06-12/27: Re-induction with FLANG chemotherapy. Repeat bone marrow biopsy negative for residual AML. Patient in Complete Remission 01/06-01/10: C1 consolidation chemotherapy with Mell-C. 02/17-02/21: C2 consolidation chemotherapy with MELL-C. 03/25-03/30: C3 consolidation chemotherapy with MELL-C 04/28-05/02: C4 consolidation chemo with MELL-C (2) Hypertension Status: Acute Plan: -- Hold amlodipine, lisinopril, continue atenolol at 50mg PO daily (3) Diabetes Status: Acute Plan: --on SSI Novolog (4) Fever Status: Acute Plan: -- BC shows GNR --ID following -- on Cefepime + Daptomycin + Micafungin -- CXR negative --u/a neg (5) DVT prophylaxis Status: Acute Plan: -- Thrombocytopenia; will hold off on chemical prophylaxis at this time. (6) Constipation Status: Acute Plan: --on Colace schedule --PRN laxative --PRN Relistor Assessment 46 y/o male admitted for salvage chemotherapy for relapsed AML. Attending Statement feels depress somewhat. agin d/w pt regarding further options. second cycle of CLAG-M vs clinical trials at [facility]. Pt has elected for second cycle chemo. start Neupogen today and chemo tomorrow. Pt understand this involves high risk for increase M and M. poor prognosis but hope to respond. will follow. The exam, history, and the medical decision-making described in the above note were completed with the assistance of the mid-level provider. I reviewed and agree with the findings presented. I attest that I had a [id number] encounter with the patient on the same day, and personally performed and documented my assessment and findings in the medical record. Problem Qualifiers (1) Diabetes: Qualified Code: E11.9 - Type 2 diabetes mellitus without complication, without long-term current use of insulin (2) Fever: Qualified Code: R50.9 - Fever, unspecified fever cause (3) Constipation: Qualified Code: K59.00 - Constipation, unspecified constipation type Janet Holm Oct 13, 2016 15:04 Alexandra Olea MD Oct 13, 2016 18:22
--- NOTE | 2016-10-13 15:25 | EC ---
Study Study Date:10/13/2016 STUDY CONCLUSIONS SUMMARY - Left ventricle: The cavity size was normal. Wall thickness was normal. Systolic function was normal. The estimated ejection fraction was in the range of 55% to 60%. Wall motion was normal; there were no regional wall motion abnormalities. - Mitral valve: Mild to moderate regurgitation. - Left atrium: The atrium was mildly dilated. - Right ventricle: The cavity size was mildly dilated. Wall thickness was normal. If LV function is below 40, please consider prescribing an ACEI or ARB or document rationale for non-use. PROCEDURE DATA STUDY STATUS: Elective. Procedure: Transthoracic echocardiography. Image quality was good. Scanning was performed from the parasternal, apical, and subcostal acoustic windows. Study completion: The patient tolerated the procedure well. Transthoracic echocardiography. M-mode, complete 2D, complete spectral Doppler, and color Doppler. Patient status: Inpatient. CARDIAC ANATOMY LEFT VENTRICLE: The cavity size was normal. Wall thickness was normal. Systolic function was normal. The estimated ejection fraction was in the range of 55% to 60%. Wall motion was normal; there were no regional wall motion abnormalities. AORTIC VALVE: Trileaflet; normal thickness leaflets. Doppler: Transvalvular velocity was within the normal range. There was no stenosis. No regurgitation. AORTA: Aortic root: The aortic root was normal in size. MITRAL VALVE: Structurally normal valve. Doppler: Transvalvular velocity was within the normal range. There was no evidence for stenosis. Mild to moderate regurgitation. LEFT ATRIUM: The atrium was mildly dilated. RIGHT VENTRICLE: The cavity size was mildly dilated. Wall thickness was normal. PULMONIC VALVE: Doppler: Transvalvular velocity was within the normal range. There was no evidence for stenosis. No regurgitation. TRICUSPID VALVE: Structurally normal valve. Doppler: Transvalvular velocity was within the normal range. No regurgitation. PULMONARY ARTERY: The main pulmonary artery was normal-sized. Systolic pressure was within the normal range. RIGHT ATRIUM: The atrium was normal in size. PERICARDIUM: There was no pericardial effusion. SYSTEMIC VEINS: Inferior vena cava: The vessel was normal in size. BASIC MEASUREMENTS ADULT NORMAL Left ventricle LV internal dimension, ED, chordal level, 52 mm 43-52 PLAX LV internal dimension, ES, chordal level, *42.7 mm 23-38 PLAX Fractional shortening, chordal level, PLAX *18 % >29 LV posterior wall thickness, ED 11.8 mm IVS/LVPW ratio, ED 0.98 <1.3 Ventricular septum Septal thickness, ED 11.6 mm Aortic valve Leaflet separation 23 mm 15-26 Right ventricle RV internal dimension, ED, PLAX 32.2 mm 19-38 BASIC MEASUREMENTS ADULT NORMAL Aortic valve Leaflet separation 23 mm 15-26 Aorta Root diameter, ED 33 mm 20-37 Left atrium Anterior-posterior dimension, ES *41 mm 19-40 LA/aortic root ratio 1.24 LEGEND: Mean values are shown as u=mean value. Asterisk (*) frank values outside specified normal range. Prepared and signed by Wong Alvares [id number]
[2016-10-13 17:15] VITALS: BP 146/86; PULSE 100; RESP 16; TEMP 97.1; O2SAT 99
[2016-10-13] MEDS: PIPERACIL-TAZO 3.375 GM PREMIX 50 ML IV SCH ×2 (17:54→21:47)
[2016-10-13 20:00] VITALS: BP 149/95; PULSE 98; RESP 18; TEMP 98.5; O2SAT 97
[2016-10-13] MEDS: ATENOLOL 50 MG TAB PO SCH (21:47)
[2016-10-13] MEDS: DIAZEPAM 10 MG TAB PO PRN (21:47)
--- NOTE | 2016-10-13 22:16 | HHI.IDPN ---
Subjective Subjective Remarks Delayed entry - pt was seen earlier today around 1800 Not doing good BM showed induction failure with 70% blasts Blood clx growing Fuzobacterium necroforum Pt denies teeth pain sor throat or neck pain Antibiotics cefepime dapto micafungin Allergies: Coded Allergies: Vancomycin (Verified Allergy, Severe, Rash, 04/28/16) Objective . Vital Signs Date Time Temp Pulse Resp B/P Pulse Ox O2 Delivery O2 Flow Rate FiO2 10/13/16 20:00 98.5 98 18 149/95 97 10/13/16 17:15 97.1 100 16 146/86 99 10/13/16 08:30 97.9 89 143/95 97 10/13/16 04:00 96.2 86 18 143/94 96 10/13/16 00:00 98.0 85 18 138/90 97 10/12/16 10/12/16 10/13/16 15:00 23:00 07:00 Intake Total 4060 ml 640 ml Output Total 3850 ml Balance 210 ml 640 ml Intake Oral 1740 ml 240 ml IV Total 1820 ml 400 ml Packed Cells 500 ml Output Urine Total 3850 ml # Voids 4 # Bowel Movements 1 . Laboratory Tests Test 10/12/16 10/12/16 10/13/16 06:05 20:35 03:55 White Blood Count 0.1 TH/MM3 0.2 TH/MM3 Red Blood Count 2.29 MIL/MM3 2.99 MIL/MM3 Hemoglobin 6.6 GM/DL 9.0 GM/DL 8.8 GM/DL Hematocrit 18.7 % 24.7 % 24.7 % Mean Corpuscular Volume 81.8 FL 82.7 FL Mean Corpuscular Hemoglobin 29.0 PG 29.5 PG Mean Corpuscular Hemoglobin 35.4 % 35.7 % Concent Red Cell Distribution Width 15.2 % 15.2 % Platelet Count 19 TH/MM3 16 TH/MM3 Mean Platelet Volume 7.3 FL 6.8 FL Neutrophils (%) (Auto) % % Lymphocytes (%) (Auto) % % Monocytes (%) (Auto) % % Eosinophils (%) (Auto) % % Basophils (%) (Auto) % % Neutrophils # (Auto) TH/MM3 TH/MM3 Lymphocytes # (Auto) TH/MM3 TH/MM3 Monocytes # (Auto) TH/MM3 TH/MM3 Eosinophils # (Auto) TH/MM3 TH/MM3 Basophils # (Auto) TH/MM3 TH/MM3 CBC Comment AUTO DIFF AUTO DIFF Differential Total Cells 10 100 Counted Lymphocytes % 100 % 93 % Neutrophils # (Manual) 0.0 TH/MM3 0.0 TH/MM3 Differential Comment FINAL DIFF FINAL DIFF MANUAL MANUAL Platelet Estimate LOW LOW Platelet Morphology Comment NORMAL NORMAL Ovalocytes 1+ Neutrophils % (Manual) 4 % Band Neutrophils % 1 % Monocytes % 2 % Laboratory Tests Test 10/12/16 10/12/16 10/13/16 06:05 20:35 03:55 Sodium Level 136 MEQ/L 140 MEQ/L Potassium Level 3.2 MEQ/L 3.6 MEQ/L 3.6 MEQ/L Chloride Level 99 MEQ/L 102 MEQ/L Carbon Dioxide Level 29.3 MEQ/L 31.8 MEQ/L Anion Gap 8 MEQ/L 6 MEQ/L Blood Urea Nitrogen 6 MG/DL 7 MG/DL Creatinine 0.53 MG/DL 0.42 MG/DL Estimat Glomerular Filtration 166 ML/MIN 217 ML/MIN Rate Random Glucose 157 MG/DL 116 MG/DL Calcium Level 8.0 MG/DL 8.3 MG/DL Phosphorus Level 2.5 MG/DL 3.0 MG/DL Total Bilirubin 0.6 MG/DL 0.9 MG/DL Aspartate Amino Transf LESS THAN 3 U/L LESS THAN 3 U/L (AST/SGOT) Alanine Aminotransferase 11 U/L 13 U/L (ALT/SGPT) Alkaline Phosphatase 107 U/L 110 U/L Total Protein 5.6 GM/DL 6.1 GM/DL Albumin 2.6 GM/DL 2.9 GM/DL Microbiology Date/Time Procedure Status Source Growth 10/11/16 15:15 Aerobic Blood Culture - Preliminary Resulted Blood Peripheral NO GROWTH IN 2 DAYS 10/11/16 15:15 Anaerobic Blood Culture - Preliminary Resulted Blood Peripheral NO GROWTH IN 2 DAYS 10/11/16 15:30 Aerobic Blood Culture - Preliminary Resulted Blood Peripheral NO GROWTH IN 2 DAYS 10/11/16 15:30 Anaerobic Blood Culture - Preliminary Resulted Blood Peripheral NO GROWTH IN 2 DAYS Imaging Last Impressions Chest X-Ray 10/09/16 0000 Signed Impressions: Service Date/Time: October 11:31 - CONCLUSION: The lungs are clear. Isai Blanco MD Physical Exam CONSTITUTIONAL/GENERAL: This is an adequately nourished patient, in no apparent distress. TUBES/LINES/DRAINS: PORT in R chest - site OK SKIN: No jaundice, rashes, or lesions. Skin temperature appropriate. Not diaphoretic. HEAD: Atraumatic. Normocephalic. EYES: Pupils equal and round and reactive. Extraocular motions intact. No scleral icterus. No injection or drainage. Fundi not examined. ENT: Hearing grossly normal. Nose without bleeding or purulent drainage. Oral mucosae moist small wound on L buccal mucosae surrounded by erythmema - unchanged NECK: Trachea midline. Supple, nontender. No palpable thyroid enlargement or nodularity. CARDIOVASCULAR: Regular rate and rhythm without murmurs, gallops, or rubs. No JVD. Peripheral pulses symmetric. RESPIRATORY/CHEST: Symmetric, unlabored respirations. Clear to auscultation. Breath sounds equal bilaterally. No wheezes, rales, or rhonchi. GASTROINTESTINAL: Abdomen soft, non-tender, nondistended. No hepato-splenomegaly , or palpable masses. No guarding. Bowel sounds present. GENITOURINARY: Without palpable bladder distension. MUSCULOSKELETAL: Extremities without clubbing, cyanosis, or edema. No joint tenderness or effusion noted. No calf tenderness. No mottling or clubbing. LYMPHATICS: No palpable cervical or supraclavicular adenopathy. NEUROLOGICAL: Awake and alert. Motor and sensory grossly within normal limits. Follows commands. Cognitively sharp. Moves all extremities. PSYCHIATRIC: No obvious anxiety/depression. 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
[2016-10-14] VITALS (7 sets, daily range): BP systolic 135–157; BP diastolic 77–97; PULSE 86–96; RESP 16–20; TEMP 96.2–98.3; O2SAT 94–98
[2016-10-14] MEDS: SODIUM CHLOR 0.9% 1000 ML INJ 1,000 ML IV SCH ×2 (03:55→21:16)
[2016-10-14] MEDS: PIPERACIL-TAZO 3.375 GM PREMIX 50 ML IV SCH ×4 (03:56→21:08)
[2016-10-14 05:51] LABS: HEMATOCRIT 23.3 % (39.0-51.0); MEAN CELL VOLUME 82.2 FL (80.0-100.0); MEAN CORPUSCULAR HEMOGLOBIN 29.6 PG (27.0-34.0); RED BLOOD COUNT 2.84 MIL/MM3 (4.50-5.90); WHITE BLOOD COUNT 0.1 TH/MM3 (4.0-11.0)
[2016-10-14 06:00] LABS: HEMO FLAGS AUTO DIFF
[2016-10-14 06:02] LABS: PLATELET COUNT 10 TH/MM3 (150-450)
[2016-10-14] MEDS: INSULIN ASPART SUPPLEMENTAL SCALE SQ SCH ×4 (07:00→21:15)
[2016-10-14 07:30] LABS: POLYS (SEG NEUTROPHILS) 13 % (16-70); WBC DIFF SAMPLE 15
[2016-10-14 07:32] LABS: PLATELET ESTIMATE SMEAR RARE (NORMAL); PLATELET MORPHOLOGY NORMAL (NORMAL); SCAN/DIFF FINAL DIFF MANUAL
--- NOTE | 2016-10-14 08:43 | HHI.PR ---
Subjective Remarks in no respiratory distress. but complaining of headache and nausea. no fever. Objective Vitals Vital Signs Date Time Temp Pulse Resp B/P Pulse Ox O2 Delivery O2 Flow Rate FiO2 10/14/16 04:57 18 10/14/16 04:00 97.7 92 18 146/87 94 10/14/16 00:00 97.6 90 16 135/77 96 10/13/16 20:00 98.5 98 18 149/95 97 10/13/16 17:15 97.1 100 16 146/86 99 I/O 10/13/16 10/13/16 10/13/16 10/14/16 10/14/16 10/14/16 07:00 15:00 23:00 07:00 15:00 23:00 Intake Total 640 ml 1173 ml 240 ml Balance 640 ml 1173 ml 240 ml Intake Oral 240 ml 240 ml IV Total 400 ml 1173 ml # Voids 4 1 Result Diagram: 10/14/16 0405 10/13/16 0355 Imaging Last Impressions Chest X-Ray 10/09/16 0000 Signed Impressions: Service Date/Time: October 11:31 - CONCLUSION: The lungs are clear. Isai Blanco MD Objective Remarks GENERAL: This is a well-nourished, well-developed patient, in no apparent distress. CARDIOVASCULAR: Regular rate and regular rhythm without murmurs, gallops, or rubs. RESPIRATORY: Clear to auscultation. Breath sounds equal bilaterally. No wheezes , rales, or rhonchi. GASTROINTESTINAL: Abdomen soft, non-tender, nondistended. Normal, active bowel sounds MUSCULOSKELETAL: Extremities without clubbing, cyanosis, or edema. NEURO: Alert & Oriented x4 to person, place, time, situation. Moves all ext x4 Medications and IVs Current Medications Acetaminophen (Tylenol) 650 mg Q4H PRN PO PAIN SCALE 0-3 OR TEMP> 100.5F Last administered on 10/10/16 21:16; Start 09/25/16 at 08:45 Oxycodone HCl (Roxicodone) 5 mg Q3H PRN PO PAIN SCALE 4 TO 7 Last administered on 10/14/16 03:57; Start 09/25/16 at 08:45 Oxycodone HCl (Roxicodone) 10 mg Q3H PRN PO PAIN SCALE 8 TO 10 Last administered on 10/13/16 15:18; Start 09/25/16 at 08:45 Heparin Sodium (Porcine) (Heparin Central Flush) 500 units UNSCH IVF ; Start at 08:45 Sodium Chloride (NS Flush) 5 ml UNSCH PRN IVF SEE PROTOCOL; Start 09/25/16 at 08:45 Heparin Sodium (Porcine) 250 units 250 units UNSCH PRN IVF SEE PROTOCOL; Start 09/25/16 at 08:45 Filgrastim/ Dextrose (Neupogen Inj/ D5W Inj) 31.6 ml @ 126.4 mls/ hr ONCE ONCE IV Last administered on 09/25/16 11:49; Start 09/25/16 at 11:00; Stop at 11:14; Status DC Morphine Sulfate (Morphine Inj) 4 mg Q2H PRN IV PAIN SCALE 8 TO 10; Start 09/25 at 10:15 Morphine Sulfate 8 mg 8 mg Q2H PRN IV PUSH PAIN SCALE 8 TO 10; Start 09/25/16 at 10:15 Sodium Chloride (NS 1000 ml Inj) 1,000 ml @ 100 mls/hr Q10H IV Last administered on 10/03/16 10:18; Start 09/25/16 at 10:15; Stop 10/03/16 at 15:04 ; Status DC Allopurinol (Zyloprim) 300 mg DAILY PO Last administered on 10/01/16 09:31; Start 09/25/16 at 10:30; Stop 10/02/16 at 07:49; Status DC Amlodipine Besylate (Norvasc) 10 mg DAILY PO Last administered on 09/26/16 09: 49; Start 09/26/16 at 09:00; Stop 09/28/16 at 13:20; Status DC Atenolol (Tenormin) 100 mg DAILY PO ; Start 09/26/16 at 09:00; Stop 09/26/16 at 09:00; Status DC Diazepam (Valium) 10 mg HS PO Last administered on 10/08/16 22:27; Start at 21:00; Stop 10/09/16 at 07:02; Status DC Metformin HCl (Glucophage) 850 mg DAILY PO Last administered on 09/29/16 09:13 ; Start 09/26/16 at 09:00; Stop 09/29/16 at 10:34; Status DC Sertraline HCl (Zoloft) 50 mg DAILY PO Last administered on 10/13/16 09:05; Start 09/26/16 at 09:00 Oxycodone HCl (Roxicodone) 5 mg QID PO Last administered on 10/01/16 13:49; Start 09/25/16 at 13:00; Stop 10/09/16 at 17:55; Status DC Lisinopril (Prinivil) 20 mg DAILY PO Last administered on 09/26/16 09:49; Start 09/26/16 at 09:00; Stop 09/27/16 at 12:04; Status DC Miscellaneous Medication ([facility] Information) FOR PATIENTS W... UNSCH PRN XX SEE LABEL COMMENTS; Start 09/25/16 at 10:15 Sodium Chloride (NS Flush) 2 ml BID IVF Last administered on 10/13/16 21:50; Start 09/25/16 at 21:00 Sodium Chloride (NS Flush) 2 ml UNSCH PRN IVF FLUSH AFTER USING IV ACCESS; Start 09/25/16 at 10:15 Magnesium Hydroxide (Milk Of Magnesia Liq) 15 ml DAILY PRN PO CONSTIPATION; Start 09/25/16 at 10:15 Promethazine HCl (Phenergan) 25 mg Q4H PRN PO NAUSEA OR VOMITING; Start at 10:15 Prochlorperazine Maleate (Compazine) 10 mg Q4H PRN PO NAUSEA OR VOMITING; Start 09/25/16 at 10:15 Prochlorperazine Edisylate (Compazine Inj) 10 mg Q4H PRN IV NAUSEA OR VOMITING ; Start 09/25/16 at 10:15 Lorazepam (Ativan) 0.5 mg DAILY PRN PO ANXIETY; Start 09/25/16 at 10:15; Stop 10/09/16 at 07:02; Status DC Lorazepam (Ativan Inj) 0.5 mg DAILY PRN IV ANXIETY; Start 09/25/16 at 10:15; Stop 10/09/16 at 07:03; Status DC Temazepam (Restoril) 15 mg HS PRN PO INSOMNIA; Start 09/25/16 at 10:15; Stop at 07:03; Status DC Loperamide HCl (Imodium) 2 mg UNSCH PRN PO AFTER EACH LOOSE STOOL; Start at 10:15 Al Hydrox/Mg Hydrox/Simethicone (Mag-Al Plus Susp Liq) 30 ml Q4H PRN PO INDIGESTION; Start 09/25/16 at 10:15 Alteplase, Recombinant 2 mg 2 mg UNSCH PRN IVF SEE LABEL COMMENTS Last administered on 10/10/16 09:09; Start 09/25/16 at 10:15 Ondansetron HCl/ Dextrose (Zofran Inj/D5W Inj) 54 ml @ 216 mls/hr Q8H PRN IV PUSH NAUSEA OR VOMITING Last administered on 09/27/16 02:13; Start 09/25/16 at 10:30 Amphetamine/ Dextroamphetamine (Adderall Xr) 15 mg DAILY PO Last administered on 09/26/16 09:45; Start 09/26/16 at 09:00; Stop 09/26/16 at 13:53; Status DC Amphetamine/ Dextroamphetamine (Adderall Xr) 10 mg DAILY PO ; Start 09/26/16 at 09:00; Stop 09/26/16 at 13:53; Status DC Atenolol (Tenormin) 100 mg DAILY@2100 PO Last administered on 10/09/16 21:45; Start 09/25/16 at 21:00; Stop 10/10/16 at 12:41; Status DC Docusate Sodium 100 mg 100 mg TID PO Last administered on 10/12/16 08:36; Start 09/25/16 at 18:00 Filgrastim 480 mcg/Sodium Chloride 51.6 ml @ 103.2 mls/ hr DAILY IV ; Start at 09:00; Stop 09/30/16 at 09:29; Status Cancel Sodium Chloride 250 ml @ 100 mls/hr DAILY IV ; Start 09/26/16 at 09:00; Stop at 10:32; Status DC Granisetron HCl 1 mg/Dexamethasone Sodium Phosphate 20 mg/Sodium Chloride 56 ml @ 112 mls/hr Q24H IV ; Start 09/26/16 at 10:00; Stop 09/26/16 at 10:30; Status DC Sodium Chloride 250 ml @ 100 mls/hr DAILY IV ; Start 09/26/16 at 12:00; Stop at 12:00; Status DC Granisetron HCl 1 mg/Dexamethasone Sodium Phosphate 20 mg/Sodium Chloride 56 ml @ 112 mls/hr Q24H IV Last administered on 09/30/16 12:13; Start 09/26/16 at 12:00; Stop 09/30/16 at 12:29; Status DC Sodium Chloride 250 ml @ 100 mls/hr Q24H IV Last administered on 09/30/16 13: 26; Start 09/26/16 at 13:00; Stop 10/10/16 at 12:52; Status DC Sodium Chloride 250 ml @ 100 mls/hr Q24H IV Last administered on 10/10/16 20: 55; Start 09/26/16 at 20:00 Cladribine 12 mg/ Sodium Chloride 512 ml @ 256 mls/hr Q24H IV Last administered on 09/30/16 13:30; Start 09/26/16 at 13:00; Stop 09/30/16 at 14:59 ; Status DC Cytarabine 4800 mg/Dextrose 500 ml @ 125 mls/hr Q24H IV Last administered on 20:06; Start 09/26/16 at 14:00; Stop 09/27/16 at 19:20; Status DC Mitoxantrone HCl 24 mg/Sodium Chloride 62 ml @ 372 mls/hr Q24H IV ; Start 09/26 at 18:00; Stop 09/27/16 at 00:39; Status DC Filgrastim 480 mcg/Sodium Chloride 51.6 ml @ 206.4 mls/ hr Q24H IV Last administered on 09/30/16 13:00; Start 09/26/16 at 12:30; Stop 09/30/16 at 12:44 ; Status DC Cefepime HCl/ Sodium Chloride (Maxipime Inj/NS Inj) 100 ml @ 200 mls/hr Q8H IV Last administered on 09/30/16 05:34; Start 09/26/16 at 14:00; Stop 09/30/16 at 09:03; Status DC Amphetamine/ Dextroamphetamine (Adderall Xr) 15 mg DAILY PO Last administered on 10/13/16 09:05; Start 09/27/16 at 09:00 Bisacodyl 5 mg 5 mg DAILY PRN PO CONSTIPATION; Start 09/26/16 at 14:45 Mitoxantrone HCl/ Sodium Chloride (Novantrone Inj/ NS Inj) 62 ml @ 372 mls/hr DAILY@01 IV Last administered on 09/29/16 01:51; Start 09/27/16 at 01:00; Stop 09/29/16 at 01:09; Status DC Lisinopril (Prinivil) 10 mg DAILY PO Last administered on 09/30/16 09:22; Start 09/28/16 at 09:00; Status Hold Fluconazole 200 mg 200 mg DAILY PO Last administered on 10/10/16 09:09; Start 09/27/16 at 13:00; Status Hold Cytarabine 4800 mg/Dextrose 500 ml @ 125 mls/hr DAILY@20 IV Last administered on 09/28/16 20:48; Start 09/27/16 at 20:00; Stop 09/28/16 at 18:41; Status DC Sodium Chloride (NS 250 ml Inj) 250 ml @ 15 mls/hr ONCE ONCE IV Last administered on 09/28/16 09:45; Start 09/28/16 at 09:45; Stop 09/29/16 at 02:24 ; Status DC Acetaminophen (Tylenol) 650 mg Q4H PRN PO SEE LABEL COMMENTS; Start 09/28/16 at 09:45; Stop 09/28/16 at 13:46; Status DC Amlodipine Besylate 5 mg 5 mg DAILY PO Last administered on 09/30/16 09:22; Start 09/29/16 at 09:00; Status Hold Cytarabine/ Dextrose ([place] C Inj/D5W 500 ml Inj) 500 ml @ 125 mls/hr DAILY@2030 IV Last administered on 09/30/16 18:05; Start 09/28/16 at 20:30; Stop at 23:59; Status DC Dextrose (D50w (Vial) Inj) 25 ml UNSCH PRN IV PUSH HYPOGLYCEMIA-SEE COMMENTS; Start 09/29/16 at 10:45 Glucagon (Glucagon Inj) 1 mg UNSCH PRN OTHER HYPOGLYCEMIA-SEE COMMENTS; Start 09/29/16 at 10:45 Insulin Aspart 1 1 ACHS SLIDING SCALE SQ Last administered on 10/13/16 21:50 ; Start 09/29/16 at 11:00 Sodium Chloride (NS 250 ml Inj) 250 ml @ 15 mls/hr ONCE ONCE IV Last administered on 09/29/16 22:22; Start 09/29/16 at 18:15; Stop 09/30/16 at 10:54 ; Status DC Acetaminophen (Tylenol) 650 mg Q4H PRN PO SEE LABEL COMMENTS Last administered on 09/29/16 22:03; Start 09/29/16 at 20:00; Stop 09/30/16 at 00:01; Status DC Diphenhydramine HCl 25 mg 25 mg Q4H PRN PO SEE LABEL COMMENTS Last administered on 09/29/16 22:04; Start 09/29/16 at 20:00; Stop 09/30/16 at 00:01 ; Status DC Sodium Chloride (NS 250 ml Inj) 250 ml @ 15 mls/hr ONCE ONCE IV Last administered on 09/30/16 10:45; Start 09/30/16 at 08:15; Stop 10/01/16 at 00:54 ; Status DC Acetaminophen (Tylenol) 650 mg Q4H PRN PO SEE LABEL COMMENTS Last administered on 09/30/16 09:22; Start 09/30/16 at 08:15; Stop 09/30/16 at 12:16; Status DC Diphenhydramine HCl (Benadryl) 25 mg Q4H PRN PO SEE LABEL COMMENTS Last administered on 09/30/16 09:21; Start 09/30/16 at 08:15; Stop 09/30/16 at 12:16 ; Status DC Levofloxacin (Levaquin) 500 mg DAILY@11 PO Last administered on 10/09/16 10:55 ; Start 10/01/16 at 11:00; Stop 10/09/16 at 18:36; Status DC Methylnaltrexone [place] 12 mg 12 mg ONCE ONCE SQ Last administered on 13:33; Start 09/30/16 at 11:30; Stop 09/30/16 at 11:44; Status DC Sodium Chloride (NS 250 ml Inj) 250 ml @ 15 mls/hr ONCE ONCE IV Last administered on 09/30/16 23:00; Start 09/30/16 at 16:00; Stop 10/01/16 at 08:39 ; Status DC Diphenhydramine HCl (Benadryl) 25 mg Q4H PRN PO SEE LABEL COMMENTS; Start 09/30 at 16:00; Stop 09/30/16 at 20:01; Status DC Acetaminophen (Tylenol) 650 mg Q4H PRN PO FOR BLOOD PRODUCTS Last administered on 10/12/16 08:36; Start 09/30/16 at 22:00 Diphenhydramine HCl 25 mg 25 mg Q4H PRN PO FOR BLOOD PRODUCTS Last administered on 10/12/16 08:35; Start 09/30/16 at 22:00 Sodium Chloride 250 ml @ 15 mls/hr ONCE ONCE IV Last administered on 10:57; Start 10/01/16 at 09:15; Stop 10/02/16 at 01:54; Status DC Sodium Chloride (NS 250 ml Inj) 250 ml @ 15 mls/hr ONCE ONCE IV Last administered on 10/02/16 13:27; Start 10/02/16 at 10:30; Stop 10/03/16 at 03:09 ; Status DC Furosemide (Lasix Inj) 20 mg ONCE ONCE IV PUSH Last administered on 10/02/16 13:27; Start 10/02/16 at 11:00; Stop 10/02/16 at 11:01; Status DC Diazepam 5 mg 5 mg ONCE ONCE PO Last administered on 10/05/16 11:52; Start 10/05/16 at 10:15; Stop 10/05/16 at 10:16; Status DC Sodium Chloride (NS 250 ml Inj) 250 ml @ 15 mls/hr ONCE ONCE IV Last administered on 10/06/16 11:38; Start 10/06/16 at 08:15; Stop 10/07/16 at 00:54; Status DC Acetaminophen (Tylenol) 650 mg Q4H PRN PO SEE LABEL COMMENTS; Start 10/06/16 at 08:15; Stop 10/06/16 at 12:16; Status DC Diphenhydramine HCl 25 mg 25 mg Q4H PRN PO SEE LABEL COMMENTS; Start 10/06/16 at 08:15; Stop 10/06/16 at 12:16; Status DC Sodium Chloride (NS 250 ml Inj) 250 ml @ 15 mls/hr ONCE ONCE IV Last administered on 10/08/16 10:40; Start 10/08/16 at 08:30; Stop 10/09/16 at 01:09; Status DC Acetaminophen (Tylenol) 650 mg Q4H PRN PO SEE LABEL COMMENTS; Start 10/08/16 at 08:30; Stop 10/08/16 at 12:31; Status DC Diphenhydramine HCl (Benadryl) 25 mg Q4H PRN PO SEE LABEL COMMENTS; Start at 08:30; Stop 10/08/16 at 12:31; Status DC Hydromorphone HCl (Dilaudid Pf Inj) 1 mg ONCE ONCE IV PUSH Last administered on 10/09/16 07:30; Start 10/09/16 at 07:00; Stop 10/09/16 at 07:01; Status DC Multi-Ingredient Mouthwash/Gargle (Magic Mouthwash Adult Liq) 5 ml QID SWISH- SWAL Last administered on 10/13/16 21:47; Start 10/08/16 at 21:00; Stop at 19:09 Diazepam (Valium) 10 mg Q8HR PRN PO ANXIETY Last administered on 10/13/16 21: 47; Start 10/09/16 at 07:01 Diazepam (Valium) 10 mg ONCE ONCE PO Last administered on 10/09/16 07:07; Start 10/09/16 at 07:15; Stop 10/09/16 at 07:16; Status DC Lidocaine HCl 20 ml 20 ml ONCE ONCE INFIL ; Start 10/09/16 at 07:15; Stop at 07:16; Status DC Sodium Chloride (NS 250 ml Inj) 250 ml @ 15 mls/hr ONCE ONCE IV Last administered on 10/09/16 10:05; Start 10/09/16 at 07:15; Stop 10/09/16 at 23:54; Status DC Acetaminophen (Tylenol) 650 mg Q4H PRN PO SEE LABEL COMMENTS; Start 10/09/16 at 07:15; Stop 10/09/16 at 11:16; Status DC Diphenhydramine HCl 25 mg 25 mg Q4H PRN PO SEE LABEL COMMENTS; Start 10/09/16 at 07:15; Stop 10/09/16 at 11:16; Status DC Sodium Chloride (NS 250 ml Inj) 250 ml @ 15 mls/hr ONCE ONCE IV Last administered on 10/09/16 12:28; Start 10/09/16 at 07:15; Stop 10/09/16 at 23:54; Status DC Lidocaine/ Epinephrine (Xylocaine-Epi 1%-1:100,000 Inj) 20 ml ONCE ONCE INFIL ; Start 10/09/16 at 07:15; Stop 10/09/16 at 07:17; Status DC Lidocaine/ Epinephrine (Xylocaine-Epi 2%-1:100,000 Inj) 30 ml ONCE ONCE INFIL ; Start 10/09/16 at 07:15; Stop 10/09/16 at 07:17; Status DC Lidocaine HCl 50 ml 50 ml STK-MED ONCE .ROUTE ; Start 10/09/16 at 07:10; Stop 10/09/16 at 07:11; Status DC Cefepime HCl 2000 mg/Sodium Chloride 100 ml @ 200 mls/hr Q8H IV Last administered on 10/13/16 11:12; Start 10/09/16 at 11:00; Stop 10/13/16 at 14:58 ; Status DC Sodium Chloride 1,000 ml @ 100 mls/hr Q10H IV Last administered on 10/09/16 18 :01; Start 10/09/16 at 18:00; Stop 10/09/16 at 20:39; Status DC Daptomycin 800 mg/ Sodium Chloride 100 ml @ 200 mls/hr Q24H IV Last administered on 10/12/16 20:10; Start 10/09/16 at 20:00; Stop 10/13/16 at 14:58; Status DC Micafungin Sodium 150 mg/Sodium Chloride 100 ml @ 100 mls/hr Q24H IV Last administered on 10/12/16 21:04; Start 10/09/16 at 20:00; Stop 10/13/16 at 14:58; Status DC Sodium Chloride (NS 1000 ml Inj) 1,000 ml @ 125 mls/hr Q8H IV Last administered on 10/11/16 14:08; Start 10/09/16 at 21:00; Stop 10/12/16 at 10:00; Status DC Diphenhydramine HCl (Benadryl) 25 mg UNSCH X1 PO ; Start 10/10/16 at 07:00; Stop 10/10/16 at 07:01; Status DC Acetaminophen 325 mg 325 mg UNSCH X1 PO ; Start 10/10/16 at 07:00; Stop 10/10/16 at 07:01; Status DC Potassium Chloride 100 ml @ 50 mls/hr Q2H PRN IV For Potassium 2.8 - 3.2 mEq/L ; Start 10/10/16 at 12:45; Stop 10/11/16 at 07:49; Status DC Potassium Chloride 100 ml @ 50 mls/hr Q2H PRN IV For Potassium 2.8 - 3.2 mEq/L ; Start 10/10/16 at 12:45; Stop 10/11/16 at 07:49; Status DC Potassium Chloride 100 ml @ 25 mls/hr UNSCH PRN IV For Potassium 3.3 - 3.5 mEq /L Last administered on 10/11/16t 07:16; Start 10/10/16 at 12:45; Stop 10/11/16 at 07:49; Status DC Potassium Chloride 100 ml @ 50 mls/hr Q2H PRN IV For Potassium 3.3 - 3.5 mEq/L ; Start 10/10/16 at 12:45; Stop 10/11/16 at 07:49; Status DC Magnesium Sulfate/ Sodium Chloride (Magnesium Sulfate Inj/NS Inj) 100 ml @ 50 mls/hr UNSCH PRN IV For Magnesium 0.9 - 1.1 mg/dL; Start 10/10/16 at 12:45; Stop 10/11/16 at 07:49; Status DC Magnesium Oxide 800 mg 800 mg UNSCH PRN PO For Magnesium 1.2 - 1.6 mg/dL; Start 10/10/16 at 12:45; Stop 10/11/16 at 07:49; Status DC Magnesium Sulfate/ Sodium Chloride (Magnesium Sulfate Inj/NS Inj) 100 ml @ 50 mls/hr UNSCH PRN IV For Magnesium 1.2 - 1.6 mg/dL; Start 10/10/16 at 12:45; Stop 10/11/16 at 07:49; Status DC Potassium Phosphate 2000 mg 2,000 mg Q4H PRN PO For Phosphorus < 2.5 mg/dL; Start 10/10/16 at 12:45; Stop 10/11/16 at 07:49; Status DC Sodium Phosphate/ Sodium Chloride (Sodium Phosphate Inj/NS 250 ml Inj) 250 ml @ 42 mls/hr UNSCH PRN IV For Phosphorus < 2.5 mg/dL Last administered on 08:40; Start 10/10/16 at 12:45; Stop 10/11/16 at 07:49; Status DC Potassium Phosphate 2000 mg 2,000 mg UNSCH PRN PO/TUBE SEE LABEL COMMENTS; Start 10/10/16 at 12:45; Stop 10/11/16 at 07:49; Status DC Potassium Phosphate/Sodium Chloride (Potassium Phosphate Inj/NS 250 ml Inj) 260 ml @ 42 mls/hr UNSCH PRN IV SEE LABEL COMMENTS; Start 10/10/16 at 12:45; Stop 10/11/16 at 07:49; Status DC Atenolol 50 mg 50 mg HS PO Last administered on 10/13/16 21:47; Start 10/10/16 at 22:45 Potassium Chloride 100 ml @ 50 mls/hr Q2H PRN IV-CENTRAL For Potassium 2.8 - 3.2 mEq/L; Start 10/11/16 at 07:45; Stop 10/13/16 at 09:55; Status DC Potassium Chloride 100 ml @ 50 mls/hr Q2H PRN IV For Potassium 2.8 - 3.2 mEq/ L Last administered on 10/12/16 15:03; Start 10/11/16 at 07:45; Stop 10/13/16 at 09:55; Status DC Potassium Chloride 100 ml @ 25 mls/hr UNSCH PRN IV-CENTRAL For Potassium 3.3 - 3.5 mEq/L; Start 10/11/16 at 07:45; Stop 10/13/16 at 09:55; Status DC Potassium Chloride 100 ml @ 50 mls/hr Q2H PRN IV For Potassium 3.3 - 3.5 mEq/L ; Start 10/11/16 at 07:45; Stop 10/13/16 at 09:55; Status DC Magnesium Sulfate/ Sodium Chloride (Magnesium Sulfate Inj/NS Inj) 100 ml @ 50 mls/hr UNSCH PRN IV For Magnesium 0.9 - 1.1 mg/dL; Start 10/11/16 at 07:45; Stop 10/13/16 at 09:55; Status DC Magnesium Oxide 800 mg 800 mg UNSCH PRN PO For Magnesium 1.2 - 1.6 mg/dL; Start 10/11/16 at 07:45; Stop 10/13/16 at 09:55; Status DC Magnesium Sulfate/ Sodium Chloride (Magnesium Sulfate Inj/NS Inj) 100 ml @ 50 mls/hr UNSCH PRN IV For Magnesium 1.2 - 1.6 mg/dL; Start 10/11/16 at 07:45; Stop 10/13/16 at 09:55; Status DC Potassium Phosphate 2000 mg 2,000 mg Q4H PRN PO For Phosphorus < 2.5 mg/dL; Start 10/11/16 at 07:45; Stop 10/13/16 at 09:55; Status DC Sodium Phosphate/ Sodium Chloride (Sodium Phosphate Inj/NS 250 ml Inj) 250 ml @ 42 mls/hr UNSCH PRN IV For Phosphorus < 2.5 mg/dL; Start 10/11/16 at 07:45; Stop 10/13/16 at 09:55; Status DC Potassium Phosphate 2000 mg 2,000 mg UNSCH PRN PO/TUBE SEE LABEL COMMENTS; Start 10/11/16 at 07:45; Stop 10/13/16 at 09:55; Status DC Potassium Phosphate 30 mmol/ Sodium Chloride 260 ml @ 42 mls/hr UNSCH PRN IV SEE LABEL COMMENTS; Start 10/11/16 at 07:45; Stop 10/13/16 at 09:55; Status DC Sodium Chloride (NS 250 ml Inj) 250 ml @ 15 mls/hr ONCE ONCE IV Last administered on 10/11/16 08:41; Start 10/11/16 at 08:15; Stop 10/12/16 at 00:54; Status DC Acetaminophen 650 mg 650 mg Q4H PRN PO SEE LABEL COMMENTS; Start 10/11/16 at 08: 30; Stop 10/11/16 at 12:31; Status DC Sodium Chloride 1,000 ml @ 75 mls/hr [id number] IV Last administered on 03:55; Start 10/12/16 at 02:15 Sodium Chloride (NS 250 ml Inj) 250 ml @ 15 mls/hr ONCE ONCE IV Last administered on 10/12/16 08:37; Start 10/12/16 at 08:00; Stop 10/13/16 at 00:39; Status DC Acetaminophen (Tylenol) 650 mg Q4H PRN PO SEE LABEL COMMENTS; Start 10/12/16 at 08:00; Stop 10/12/16 at 12:01; Status DC Diphenhydramine HCl (Benadryl) 25 mg Q4H PRN PO SEE LABEL COMMENTS; Start at 08:00; Stop 10/12/16 at 12:01; Status DC Furosemide 20 mg 20 mg ONCE ONCE IV Last administered on 10/12/16 08:37; Start 10/12/16 at 08:00; Stop 10/12/16 at 08:01; Status DC Sodium Chloride 250 ml @ 15 mls/hr ONCE ONCE IV Last administered on 11:09; Start 10/12/16 at 10:00; Stop 10/13/16 at 02:39; Status DC Filgrastim 480 mcg/Dextrose 50.0 ml @ 100 mls/hr ONCE ONCE IV Last administered on 10/13/16 17:10; Start 10/13/16 at 15:00; Stop 10/13/16 at 15:29 ; Status DC Piperacillin Sod/ Tazobactam Sod 50 ml @ 100 mls/hr Q6H IV Last administered on 10/14/16 03:56; Start 10/13/16 at 16:00 Filgrastim 480 mcg/Dextrose 50 ml @ 100 mls/hr DAILY@14 IV ; Start 10/14/16 at 14:00; Stop 10/18/16 at 14:29 Granisetron HCl 1 mg/Dexamethasone Sodium Phosphate 20 mg/Sodium Chloride 56 ml @ 168 mls/hr Q24H IV ; Start 10/14/16 at 11:00; Stop 10/18/16 at 11:19 Cladribine 12.05 mg/Sodium Chloride 112.05 ml @ 56.025 mls/hr Q24H IV ; Start 10/14/16 at 12:00; Stop 10/18/16 at 13:59 Cytarabine 4820 mg/Dextrose 500 ml @ 125 mls/hr Q24H IV ; Start 10/14/16 at 14: 00; Stop 10/18/16 at 17:59 Mitoxantrone HCl/ Sodium Chloride (Novantrone Inj/ NS Inj) 112.05 ml @ 112.05 mls/hr Q24H IV ; Start 10/14/16 at 18:00; Stop 10/16/16 at 18:59 A/P Assessment and Plan A/P Neutropenic fever Improved Continue Zosyn blood cultures negative. ID is following. Acute myeloid leukemia Oncology following Pancytopenia Anemia Related to AML started on Neupogen management per Oncology Hypokalemia-resolved. Hypertension Follow BP Continue present treatments Diabetes mellitus Follow blood sugars Diabetic Diet Depression No change to baseline management No exacerbations Hypophosphatemia-resolved d/w Oncology; [facility] will sign off. Edu Marti MD Oct 14, 2016 08:43
[2016-10-14] MEDS: SODIUM CHLORIDE 10 ML FLUSH BID IVF SCH ×2 (09:00→20:56)
[2016-10-14] MEDS: DOCUSATE SODIUM 100 MG CAP PO SCH ×4 (09:00→21:12)
[2016-10-14] MEDS: SERTRALINE HCL 50 MG TAB PO SCH (09:35)
[2016-10-14] MEDS: DEXTROAMPHETAMINE/AMPHETAMINE XR 15 MG CAP PO SCH (09:35)
[2016-10-14] MEDS: NYSTAT/DIPHENHY/LIDO MOUTHWASH (Adult) 120ML SWISH-SWAL SCH ×4 (09:35→21:08)
--- NOTE | 2016-10-14 10:10 | RADRPT ---
EXAM DATE/TIME: 10/14/2016 09:52 [place] COMPARISON: MRI BRAIN W & W/O CONTRAST, May 14, 2016, 19:52. CT BRAIN W/O CONTRAST, December 21, 2015, 10:08. INDICATIONS : Cephalgia. RADIATION DOSE: 56.35 CTDIvol (mGy) MEDICAL HISTORY : Diabetes mellitus type 2. Cardiovascular disease Hypertension. SURGICAL HISTORY : None. ENCOUNTER: Initial ACUITY: 4 - 6 days PAIN SCALE: 10/10 LOCATION: Left cranial TECHNIQUE: Multiple contiguous axial images were obtained of the head. Using automated exposure control and adj ustment of the mA and/or kV according to patient size, radiation dose was kept as low as reasonably a chievable to obtain optimal diagnostic quality images. FINDINGS: CEREBRUM: The ventricles are normal. No evidence of midline shift, mass lesion, hemorrhage or acute infarction . No extra-axial fluid collections are seen. POSTERIOR FOSSA: The cerebellum and brainstem demonstrate no acute finding. The 4th ventricle is midline. The cerebe llopontine angle is unremarkable. EXTRACRANIAL: There is minimally compressed at thickening the left maxillary sinus and left ethmoid sinus. Remainin g visualized sinuses are clear. SKULL: The calvaria is intact. No evidence of skull fracture. CONCLUSION: 1. No acute intracranial abnormality is identified. 2. Minimal mucoperiosteal thickening in the left maxillary and ethmoid sinus. Eric Collazo MD on October 14, 2016 at 10:05 Board Certified Radiologist. This report was verified electronically.
[2016-10-14] MEDS: ACETAMINOPHEN 325 MG TAB PO PRN (10:31)
[2016-10-14] MEDS: diphenhydrAMINE HCL 25 MG CAP PO PRN (10:31)
[2016-10-14] MEDS ORDERED: ACETAMIN 325 MG/BUTALBITAL 50 MG/CAFFEINE 40 MG TAB PO ONE (10:45)
[2016-10-14] MEDS ORDERED: GRANISETRON INJ 1 MG, DEXAMETHASONE INJ 20 MG in SODIUM CHLORIDE 0.9% INJ 50 ML IV SCH (11:00)
[2016-10-14] MEDS ORDERED: CLADRIBINE IV SCH (12:00)
[2016-10-14] MEDS ORDERED: SODIUM CHLORIDE 0.9% IV SCH ×2 (12:00→18:00)
--- NOTE | 2016-10-14 12:36 | PD.ONC.PN ---
Subjective Subjective Remarks Afebrile overnight. Patient complaining of left sided headache present upon waking for the past 2-3 days. pain starts behind left eye and radiates to the back of the head. Pain is worsened with light and improved with quiet dark room. no lacrimation. some rhinorrhea. No associated neurologic symptoms. ready to start chemo therapy today. Objective Data Date Time Temp Pulse Resp B/P Pulse Ox O2 Delivery O2 Flow Rate FiO2 10/14/16 11:40 97.8 91 16 153/87 94 10/14/16 11:11 98.0 96 16 157/97 95 10/14/16 08:00 96.2 92 20 152/90 94 10/14/16 04:57 18 10/14/16 04:00 97.7 92 18 146/87 94 10/14/16 00:00 97.6 90 16 135/77 96 10/13/16 20:00 98.5 98 18 149/95 97 10/13/16 17:15 97.1 100 16 146/86 99 10/14/16 10/14/16 10/14/16 07:00 15:00 23:00 Intake Total 240 ml Balance 240 ml Result Diagram: 10/14/16 0405 10/13/16 0355 Laboratory Results Laboratory Tests Test 10/14/16 10/14/16 04:05 06:44 White Blood Count 0.1 TH/MM3 Red Blood Count 2.84 MIL/MM3 Hemoglobin 8.4 GM/DL Hematocrit 23.3 % Mean Corpuscular Volume 82.2 FL Mean Corpuscular Hemoglobin 29.6 PG Mean Corpuscular Hemoglobin 36.0 % Concent Red Cell Distribution Width 15.0 % Platelet Count 10 TH/MM3 Mean Platelet Volume 7.6 FL Neutrophils (%) (Auto) % Lymphocytes (%) (Auto) % Monocytes (%) (Auto) % Eosinophils (%) (Auto) % Basophils (%) (Auto) % Neutrophils # (Auto) TH/MM3 Lymphocytes # (Auto) TH/MM3 Monocytes # (Auto) TH/MM3 Eosinophils # (Auto) TH/MM3 Basophils # (Auto) TH/MM3 CBC Comment AUTO DIFF Differential Total Cells 15 Counted Neutrophils % (Manual) 13 % Lymphocytes % 87 % Neutrophils # (Manual) 0.0 TH/MM3 Differential Comment FINAL DIFF MANUAL Platelet Estimate RARE Platelet Morphology Comment NORMAL Blood Bank Comment Culture Results Microbiology Date/Time Procedure Status Source Growth 10/11/16 15:15 Aerobic Blood Culture - Preliminary Resulted Blood Peripheral NO GROWTH IN 3 DAYS 10/11/16 15:15 Anaerobic Blood Culture - Preliminary Resulted Blood Peripheral NO GROWTH IN 3 DAYS 10/11/16 15:30 Aerobic Blood Culture - Preliminary Resulted Blood Peripheral NO GROWTH IN 3 DAYS 10/11/16 15:30 Anaerobic Blood Culture - Preliminary Resulted Blood Peripheral NO GROWTH IN 3 DAYS Imaging Studies Last [address] 10/14/16 0000 Signed Impressions: Service Date/Time: Friday, October 14, 2016 09:52 - CONCLUSION: 1. No acute intracranial abnormality is identified. 2. Minimal mucoperiosteal thickening in the left maxillary and ethmoid sinus. Eric Collazo MD Administered Medications Medications (Trade) Dose Ordered Sig/Génesis Route PRN Reason Start Time Stop Time Status Last Admin Dose Admin Acetaminophen (Tylenol) 650 mg Q4H PRN PO PAIN SCALE 0-3 OR TEMP> 100.5F 09/25/16 08:45 10/10/16 21:16 Oxycodone HCl (Roxicodone) 5 mg Q3H PRN PO PAIN SCALE 4 TO 7 09/25/16 08:45 10/14/16 03:57 Oxycodone HCl (Roxicodone) 10 mg Q3H PRN PO PAIN SCALE 8 TO 10 09/25/16 08:45 10/14/16 11:18 Sertraline HCl (Zoloft) 50 mg DAILY PO 09/26/16 09:00 10/14/16 09:35 Sodium Chloride (NS Flush) 2 ml BID IVF 09/25/16 21:00 10/13/16 21:50 Alteplase, Recombinant 2 mg 2 mg UNSCH PRN IVF SEE LABEL COMMENTS 09/25/16 10:15 10/10/16 09:09 Ondansetron HCl/ Dextrose (Zofran Inj/D5W Inj) 54 ml @ 216 mls/hr Q8H PRN IV PUSH NAUSEA OR VOMITING 09/25/16 10:30 09/27/16 02:13 Docusate Sodium 100 mg 100 mg TID PO 09/25/16 18:00 10/12/16 08:36 Sodium Chloride (NS 250 ml Inj) 250 ml @ 100 mls/hr Q24H IV 09/26/16 20:00 10/10/16 20:55 Amphetamine/ Dextroamphetamine (Adderall Xr) 15 mg DAILY PO 09/27/16 09:00 10/14/16 09:35 Lisinopril (Prinivil) 10 mg DAILY PO 09/28/16 09:00 Hold 09/30/16 09:22 Fluconazole (Diflucan) 200 mg DAILY PO 09/27/16 13:00 Hold 10/10/16 09:09 Amlodipine Besylate (Norvasc) 5 mg DAILY PO 09/29/16 09:00 Hold 09/30/16 09:22 Acetaminophen (Tylenol) 650 mg Q4H PRN PO FOR BLOOD PRODUCTS 09/30/16 22:00 10/14/16 10:31 Diphenhydramine HCl (Benadryl) 25 mg Q4H PRN PO FOR BLOOD PRODUCTS 09/30/16 22:00 10/14/16 10:31 Multi-Ingredient Mouthwash/Gargle (Magic Mouthwash Adult Liq) 5 ml QID SWISH-SWAL 10/08/16 21:00 10/15/16 19:09 10/14/16 09:35 Diazepam (Valium) 10 mg Q8HR PRN PO ANXIETY 10/09/16 07:01 10/13/16 21:47 Atenolol 50 mg 50 mg HS PO 10/10/16 22:45 10/13/16 21:47 Sodium Chloride 1,000 ml @ 75 mls/hr [id number] IV 10/12/16 02:15 10/14/16 03:55 Piperacillin Sod/ Tazobactam Sod 50 ml @ 100 mls/hr Q6H IV 10/13/16 16:00 10/14/16 09:24 Granisetron HCl/ Dexamethasone Sodium Phosphate/ Sodium Chloride (Kytril Inj/ Decadron Inj/NS Inj) 56 ml @ 168 mls/hr Q24H IV 10/14/16 11:00 10/18/16 11:19 10/14/16 11:51 Objective Remarks GENERAL: Middle aged male, lying in quiet dark room with ice pack on head and pillow over eyes. SKIN: Warm and dry. HEAD: Normocephalic. EYES: No injection or drainage. NECK: Supple, trachea midline. CARDIOVASCULAR: +S1/S2 RESPIRATORY: Breath sounds equal bilaterally. No accessory muscle use. GASTROINTESTINAL: Abdomen soft, non-tender, nondistended. EXTREMITIES: No cyanosis. NEUROLOGICAL: awake and alert, normal speech. moving all extremities. facial movements symmetric. Assessment/Plan Problem List: (1) Headache Status: Acute Plan: --will treat symptomatically --CT brain is negative --sounds consistent with migraine headache or tension type headache --d/w ID --patient reports he had these types of headaches on and off for several years (2) AML (acute myeloid leukemia) Status: Acute Plan: 10/14: D19. patient started to receive Clarabine but the pump malfunction causing the chemo to spill on the floor. the chemo is being STAT ordered again and will arrive tomorrow morning. 10/13: bone marrow flow shows 70% blasts. d/w patient, repeating induction with CLAG-M chemotherapy or enrolling in a clinical trial. The patient would like to try a second induction with CLAG-M. will give Neupogen today and start tomorrow. 10/12: Mildly tachycardic today in the 110's, but no fever. PRBC x 2 ordered today. 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 Will monitor blood counts, heart rate. Plan for repeat BMB on this upcoming week. 10/11: Spiked a fever this morning to 101.8. Will order blood cultures x 2, check UA. No longer tachycardic. Continue IV Abx. Transfuse 1 unit platelets today. 10/10: afebrile today. tolerating blood and platelet transfusions. will keep in ICU another night as he remains tachycardic. 10/09: bone marrow biopsy today. 1 unit platelets, 2 units pRBC. spiked fever 103F. cefepime started. spoke with ID, who advised me to start Daptomycin and Micafungin. transferred to ICU after becoming tachy in 140s 10/08: day 13. 1 unit platelets. bone marrow biopsy tomorrow. 10/07: flow cytometry results returned showing NPM1 + and FLT3 +. I obtained the original pathology again from to double check and the original FLT3 was NEGATIVE. NPM1 mutation was detected 43.4%, KIT mutation not detected. 46XY 10/06: 2 units pRBC today. plan to do bone marrow biopsy AM. 10/05: 1 unit platelets today 10/04: D9. no fever. 10/03: D8. no transfusion. monitor for fever 10/02: Will give 1 unit pRBC's, platelets today. Plan for repeat BMB on 10/10. 10/01: Finished chemotherapy yesterday. Tolerated well. 1 unit irradiated PRBC's to be transfused today. Continue to closely monitor blood counts. 09/30: D5. last day of chemotherapy. will give 1 unit platelets. 09/29: D4. continue chemotherapy. no transfusion. 09/28: D3. 09/27: D2 09/26: Start on CLAG-M chemotherapy for relapsed AML. Received Neupogen yesterday. He spiked a fever this afternoon of 101.3. BC, UA, and CXR ordered. Will start pt on Cefepime. Await BC results. -- He has been getting CBC q2 weeks. On 09/18 it was noted that he had a white count at 11k and a platelet count of 76k. Blasts were at 38%. He was brought in to the clinic on 09/24 for a bone marrow biopsy. A CBC was done and showed a white count of 63.7, Hgb 12.2, and platelet count was 33K. The blasts were at 73 %. Decision was made at that time to admit for salvage chemo. History: 11/04: AML Diagnosis made. 46XY, +NPM1 mutation detected, FLT3 negative-- indicates favorable prognosis. 11/05-11/28: Initial induction with MELL-C and idarubicin (7+3). STAT Leukapheresis due to leukostasis. On D2, repeat bone marrow showed residual leukemia. 12/06-12/27: Re-induction with FLANG chemotherapy. Repeat bone marrow biopsy negative for residual AML. Patient in Complete Remission 01/06-01/10: C1 consolidation chemotherapy with Mell-C. 02/17-02/21: C2 consolidation chemotherapy with MELL-C. 03/25-03/30: C3 consolidation chemotherapy with MELL-C 04/28-05/02: C4 consolidation chemo with MELL-C (3) Hypertension Status: Acute Plan: -- Hold amlodipine, lisinopril, continue atenolol (4) Diabetes Status: Acute Plan: --on SSI Novolog (5) Fever Status: Acute Plan: -- BC shows GNR --ID following -- on Zosyn -- CXR negative --u/a neg (6) DVT prophylaxis Status: Acute Plan: -- Thrombocytopenia; will hold off on chemical prophylaxis at this time. (7) Constipation Status: Acute Plan: --on Colace schedule --PRN laxative --PRN Relistor Assessment 46 y/o male admitted for salvage chemotherapy for relapsed AML. Attending Statement c/o CARLSON and left eye pain. CT Brain = neg started on chemo . Pump malfunction and chemo spilled on the floor. will redo it tomorrow. Problem Qualifiers (1) Diabetes: Qualified Code: E11.9 - Type 2 diabetes mellitus without complication, without long-term current use of insulin (2) Fever: Qualified Code: R50.9 - Fever, unspecified fever cause (3) Constipation: Qualified Code: K59.00 - Constipation, unspecified constipation type Janet Holm Oct 14, 2016 12:36 Alexandra Olea MD Oct 14, 2016 20:36
[2016-10-14] MEDS ORDERED: FILGRASTIM INJ 480 MCG in DEXTROSE 5% IN WATER INJ 48.4 ML IV SCH ×2 (14:00)
[2016-10-14] MEDS ORDERED: WATE IV SCH ×2 (14:00)
[2016-10-14] MEDS ORDERED: CYTARABINE IV SCH ×2 (14:00)
[2016-10-14] MEDS ORDERED: DEXTROSE 5% IV SCH ×2 (14:00)
[2016-10-14] MEDS ORDERED: [UNRECOGNIZED DRUG - OTHER] IV SCH (18:00)
[2016-10-14] MEDS: SODIUM CHLOR 0.9% 250 ML INJ 250 ML IV SCH (20:00)
[2016-10-14] MEDS: ATENOLOL 100 MG TAB PO SCH (21:07)
[2016-10-14] MEDS: DIAZEPAM 10 MG TAB PO PRN (23:17)
[2016-10-15] VITALS (13 sets, daily range): BP systolic 130–166; BP diastolic 79–104; PULSE 65–87; RESP 16–20; TEMP 95.4–98.2; O2SAT 93–99
[2016-10-15 03:45] LABS: MEAN CORPUSCULAR HGB CONC 36.2 % (32.0-36.0)
[2016-10-15] MEDS: PIPERACIL-TAZO 3.375 GM PREMIX 50 ML IV SCH ×4 (05:03→21:18)
[2016-10-15 05:59] LABS: HEMATOCRIT 25.1 % (39.0-51.0); MEAN CELL VOLUME 81.2 FL (80.0-100.0); MEAN CORPUSCULAR HEMOGLOBIN 29.4 PG (27.0-34.0); RED BLOOD COUNT 3.09 MIL/MM3 (4.50-5.90); RED CELL DISTRIBUTION WIDTH 14.5 % (11.6-17.2); WHITE BLOOD COUNT 0.1 TH/MM3 (4.0-11.0)
[2016-10-15] MEDS: INSULIN ASPART SUPPLEMENTAL SCALE SQ SCH ×4 (06:09→21:18)
[2016-10-15 06:18] LABS: HEMO FLAGS AUTO DIFF
[2016-10-15 06:19] LABS: BICARBONATE 31.5 MEQ/L (21.0-32.0); POTASSIUM 3.9 MEQ/L (3.5-5.1)
[2016-10-15 06:20] LABS: PLATELET COUNT 14 TH/MM3 (150-450)
[2016-10-15] MEDS: ACETAMINOPHEN 325 MG TAB PO PRN (07:23)
[2016-10-15] MEDS: diphenhydrAMINE HCL 25 MG CAP PO PRN (07:23)
[2016-10-15 07:45] LABS: WBC DIFF SAMPLE 5
[2016-10-15 07:46] LABS: PLATELET ESTIMATE SMEAR RARE (NORMAL); PLATELET MORPHOLOGY NORMAL (NORMAL); POLYS (SEG NEUTROPHILS) 20 % (16-70); SCAN/DIFF FINAL DIFF MANUAL
[2016-10-15] MEDS: SERTRALINE HCL 50 MG TAB PO SCH (08:33)
[2016-10-15] MEDS: DEXTROAMPHETAMINE/AMPHETAMINE XR 15 MG CAP PO SCH (08:33)
[2016-10-15] MEDS: NYSTAT/DIPHENHY/LIDO MOUTHWASH (Adult) 120ML SWISH-SWAL SCH ×3 (08:35→17:55)
[2016-10-15] MEDS: SODIUM CHLORIDE 10 ML FLUSH BID IVF SCH ×2 (09:16→20:47)
[2016-10-15] MEDS: LISINOPRIL 10 MG TAB PO SCH (09:16)
[2016-10-15] MEDS: amLODIPine BESYLATE 5 MG TAB PO SCH (09:16)
--- NOTE | 2016-10-15 09:53 | PD.ONC.PN ---
Subjective Subjective Remarks c/o CARLSON no fevers Objective Data Date Time Temp Pulse Resp B/P Pulse Ox O2 Delivery O2 Flow Rate FiO2 10/15/16 09:00 96.7 80 20 164/99 99 10/15/16 08:40 97.7 76 18 165/102 99 10/15/16 08:25 96.2 74 20 158/100 99 10/15/16 05:00 97.7 79 16 148/97 97 10/15/16 00:00 98.0 86 18 153/94 96 10/14/16 20:00 98.3 86 18 140/95 98 10/14/16 16:00 98.2 88 20 156/84 95 10/14/16 11:40 97.8 91 16 153/87 94 10/14/16 11:11 98.0 96 16 157/97 95 Result Diagram: 10/15/16 0505 10/15/16 0505 Laboratory Results Laboratory Tests Test 10/15/16 10/15/16 05:05 06:39 White Blood Count 0.1 TH/MM3 Red Blood Count 3.09 MIL/MM3 Hemoglobin 9.1 GM/DL Hematocrit 25.1 % Mean Corpuscular Volume 81.2 FL Mean Corpuscular Hemoglobin 29.4 PG Mean Corpuscular Hemoglobin 36.2 % Concent Red Cell Distribution Width 14.5 % Platelet Count 14 TH/MM3 Mean Platelet Volume 7.7 FL Neutrophils (%) (Auto) % Lymphocytes (%) (Auto) % Monocytes (%) (Auto) % Eosinophils (%) (Auto) % Basophils (%) (Auto) % Neutrophils # (Auto) TH/MM3 Lymphocytes # (Auto) TH/MM3 Monocytes # (Auto) TH/MM3 Eosinophils # (Auto) TH/MM3 Basophils # (Auto) TH/MM3 CBC Comment AUTO DIFF Differential Total Cells 5 Counted Neutrophils % (Manual) 20 % Lymphocytes % 80 % Neutrophils # (Manual) 0.0 TH/MM3 Differential Comment FINAL DIFF MANUAL Platelet Estimate RARE Platelet Morphology Comment NORMAL Red Cell Morphology Comment NORMAL Sodium Level 138 MEQ/L Potassium Level 3.9 MEQ/L Chloride Level 101 MEQ/L Carbon Dioxide Level 31.5 MEQ/L Anion Gap 6 MEQ/L Blood Urea Nitrogen 10 MG/DL Creatinine 0.52 MG/DL Estimat Glomerular Filtration 170 ML/MIN Rate Random Glucose 246 MG/DL Calcium Level 8.5 MG/DL Blood Bank Comment Administered Medications Medications (Trade) Dose Ordered Sig/Génesis Route PRN Reason Start Time Stop Time Status Last Admin Dose Admin Acetaminophen (Tylenol) 650 mg Q4H PRN PO PAIN SCALE 0-3 OR TEMP> 100.5F 09/25/16 08:45 10/10/16 21:16 Oxycodone HCl (Roxicodone) 5 mg Q3H PRN PO PAIN SCALE 4 TO 7 09/25/16 08:45 10/15/16 07:25 Oxycodone HCl (Roxicodone) 10 mg Q3H PRN PO PAIN SCALE 8 TO 10 09/25/16 08:45 10/14/16 16:21 Sertraline HCl (Zoloft) 50 mg DAILY PO 09/26/16 09:00 10/15/16 08:33 Sodium Chloride (NS Flush) 2 ml BID IVF 09/25/16 21:00 10/15/16 09:16 Alteplase, Recombinant 2 mg 2 mg UNSCH PRN IVF SEE LABEL COMMENTS 09/25/16 10:15 10/10/16 09:09 Ondansetron HCl/ Dextrose (Zofran Inj/D5W Inj) 54 ml @ 216 mls/hr Q8H PRN IV PUSH NAUSEA OR VOMITING 09/25/16 10:30 09/27/16 02:13 Docusate Sodium 100 mg 100 mg TID PO 09/25/16 18:00 10/14/16 21:12 Sodium Chloride (NS 250 ml Inj) 250 ml @ 100 mls/hr Q24H IV 09/26/16 20:00 10/10/16 20:55 Amphetamine/ Dextroamphetamine (Adderall Xr) 15 mg DAILY PO 09/27/16 09:00 10/15/16 08:33 Fluconazole (Diflucan) 200 mg DAILY PO 09/27/16 13:00 Hold 10/10/16 09:09 Acetaminophen (Tylenol) 650 mg Q4H PRN PO FOR BLOOD PRODUCTS 09/30/16 22:00 10/15/16 07:23 Diphenhydramine HCl (Benadryl) 25 mg Q4H PRN PO FOR BLOOD PRODUCTS 09/30/16 22:00 10/15/16 07:23 Multi-Ingredient Mouthwash/Gargle (Magic Mouthwash Adult Liq) 5 ml QID SWISH-SWAL 10/08/16 21:00 10/15/16 19:09 10/15/16 08:35 Diazepam 10 mg 10 mg Q8HR PRN PO ANXIETY 10/09/16 07:01 10/14/16 23:17 Sodium Chloride 1,000 ml @ 75 mls/hr [id number] IV 10/12/16 02:15 10/14/16 21:16 Piperacillin Sod/ Tazobactam Sod 50 ml @ 100 mls/hr Q6H IV 10/13/16 16:00 10/15/16 08:35 Filgrastim/ Dextrose (Neupogen Inj/ D5W Inj) 50 ml @ 100 mls/hr DAILY@14 IV 10/14/16 14:00 10/18/16 14:29 10/14/16 16:04 Atenolol (Tenormin) 100 mg HS PO 10/14/16 21:00 10/14/16 21:07 Amlodipine Besylate (Norvasc) 5 mg DAILY PO 10/15/16 09:00 10/15/16 09:16 Lisinopril (Prinivil) 10 mg DAILY PO 10/15/16 09:00 10/15/16 09:16 Objective Remarks GENERAL: Middle aged male, lying in quiet dark room with ice pack on head and pillow over eyes. SKIN: Warm and dry. HEAD: Normocephalic. EYES: No injection or drainage. NECK: Supple, trachea midline. CARDIOVASCULAR: +S1/S2 RESPIRATORY: Breath sounds equal bilaterally. No accessory muscle use. GASTROINTESTINAL: Abdomen soft, non-tender, nondistended. EXTREMITIES: No cyanosis. NEUROLOGICAL: awake and alert, normal speech. moving all extremities. facial movements symmetric. Assessment/Plan Problem List: (1) Headache Status: Acute Plan: --will treat symptomatically --CT brain is negative --sounds consistent with migraine headache or tension type headache --d/w ID --patient reports he had these types of headaches on and off for several years (2) AML (acute myeloid leukemia) Status: Acute Plan: 10/15 start second cycle of CLAG-M today. D/W side effects and increase morbidity and mortality with the second cycle. He agreed . I will be OOT . Dr Newell will see him till thursday. 10/14: D19. patient started to receive Clarabine but the pump malfunction causing the chemo to spill on the floor. the chemo is being STAT ordered again and will arrive tomorrow morning. 10/13: bone marrow flow shows 70% blasts. d/w patient, repeating induction with CLAG-M chemotherapy or enrolling in a clinical trial. The patient would like to try a second induction with CLAG-M. will give Neupogen today and start tomorrow. 10/12: Mildly tachycardic today in the 110's, but no fever. PRBC x 2 ordered today. 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 Will monitor blood counts, heart rate. Plan for repeat BMB on this upcoming week. 10/11: Spiked a fever this morning to 101.8. Will order blood cultures x 2, check UA. No longer tachycardic. Continue IV Abx. Transfuse 1 unit platelets today. 10/10: afebrile today. tolerating blood and platelet transfusions. will keep in ICU another night as he remains tachycardic. 10/09: bone marrow biopsy today. 1 unit platelets, 2 units pRBC. spiked fever 103F. cefepime started. spoke with ID, who advised me to start Daptomycin and Micafungin. transferred to ICU after becoming tachy in 140s 10/08: day 13. 1 unit platelets. bone marrow biopsy tomorrow. 10/07: flow cytometry results returned showing NPM1 + and FLT3 +. I obtained the original pathology again from to double check and the original FLT3 was NEGATIVE. NPM1 mutation was detected 43.4%, KIT mutation not detected. 46XY 10/06: 2 units pRBC today. plan to do bone marrow biopsy AM. 2: 1 unit platelets today 10/04: D9. no fever. 10/03: D8. no transfusion. monitor for fever 10/02: Will give 1 unit pRBC's, platelets today. Plan for repeat BMB on 10/10. 10/01: Finished chemotherapy yesterday. Tolerated well. 1 unit irradiated PRBC's to be transfused today. Continue to closely monitor blood counts. 09/30: D5. last day of chemotherapy. will give 1 unit platelets. 09/29: D4. continue chemotherapy. no transfusion. 09/28: D3. 09/27: D2 09/26: Start on CLAG-M chemotherapy for relapsed AML. Received Neupogen yesterday. He spiked a fever this afternoon of 101.3. BC, UA, and CXR ordered. Will start pt on Cefepime. Await BC results. -- He has been getting CBC q2 weeks. On 09/18 it was noted that he had a white count at 11k and a platelet count of 76k. Blasts were at 38%. He was brought in to the clinic on 09/24 for a bone marrow biopsy. A CBC was done and showed a white count of 63.7, Hgb 12.2, and platelet count was 33K. The blasts were at 73 %. Decision was made at that time to admit for salvage chemo. History: 11/04: AML Diagnosis made. 46XY, +NPM1 mutation detected, FLT3 negative-- indicates favorable prognosis. 11/05-11/28: Initial induction with MELL-C and idarubicin (7+3). STAT Leukapheresis due to leukostasis. On D2, repeat bone marrow showed residual leukemia. 12/06-12/27: Re-induction with FLANG chemotherapy. Repeat bone marrow biopsy negative for residual AML. Patient in Complete Remission 01/06-01/10: C1 consolidation chemotherapy with Mell-C. 02/17-02/21: C2 consolidation chemotherapy with MELL-C. 03/25-03/30: C3 consolidation chemotherapy with MELL-C 04/28-05/02: C4 consolidation chemo with MELL-C (3) Hypertension Status: Acute Plan: -- Hold amlodipine, lisinopril, continue atenolol (4) Diabetes Status: Acute Plan: --on SSI Novolog (5) Fever Status: Acute Plan: -- BC shows GNR --ID following -- on Zosyn -- CXR negative --u/a neg (6) DVT prophylaxis Status: Acute Plan: -- Thrombocytopenia; will hold off on chemical prophylaxis at this time. (7) Constipation Status: Acute Plan: --on Colace schedule --PRN laxative --PRN Relistor Assessment 46 y/o male admitted for salvage chemotherapy for relapsed AML. Problem Qualifiers (1) Diabetes: Qualified Code: E11.9 - Type 2 diabetes mellitus without complication, without long-term current use of insulin (2) Fever: Qualified Code: R50.9 - Fever, unspecified fever cause (3) Constipation: Qualified Code: K59.00 - Constipation, unspecified constipation type Alexandra Olea MD Oct 15, 2016 09:53
[2016-10-15] MEDS: GRANISETRON INJ 1 MG, DEXAMETHASONE INJ 20 MG in SODIUM CHLORIDE 0.9% INJ 50 ML IV SCH (10:33)
[2016-10-15] MEDS: FILGRASTIM INJ 480 MCG in DEXTROSE 5% IN WATER INJ 48.4 ML IV SCH ×2 (11:42)
[2016-10-15] MEDS: SODIUM CHLORIDE 0.9% IV SCH (12:26)
[2016-10-15] MEDS: CLADRIBINE IV SCH (12:26)
[2016-10-15] MEDS: SODIUM CHLOR 0.9% 1000 ML INJ 1,000 ML IV SCH (12:27)
[2016-10-15] MEDS: DOCUSATE SODIUM 100 MG CAP PO SCH ×2 (13:00→18:01)
[2016-10-15] MEDS: DIAZEPAM 10 MG TAB PO PRN ×2 (13:37→21:20)
[2016-10-15] MEDS ORDERED: [UNRECOGNIZED DRUG - OTHER] IV SCH (16:00)
[2016-10-15] MEDS ORDERED: SODIUM CHLORIDE 0.9% IV SCH (16:00)
[2016-10-15] MEDS: CYTARABINE IV SCH ×2 (17:54)
[2016-10-15] MEDS: WATE IV SCH ×2 (17:54)
[2016-10-15] MEDS: DEXTROSE 5% IV SCH ×2 (17:54)
--- NOTE | 2016-10-15 18:37 | HHI.IDPN ---
Subjective Subjective Remarks afebrile No headache Started on chemotherapy Antibiotics zosyn Allergies: Coded Allergies: Vancomycin (Verified Allergy, Severe, Rash, 04/28/16) Objective . Vital Signs Date Time Temp Pulse Resp B/P Pulse Ox O2 Delivery O2 Flow Rate FiO2 10/15/16 13:38 18 10/15/16 13:35 84 18 147/89 10/15/16 11:50 97.9 77 20 166/104 97 10/15/16 10:42 151/97 10/15/16 09:00 96.7 80 20 164/99 99 10/15/16 08:40 97.7 76 18 165/102 99 10/15/16 08:25 96.2 74 20 158/100 99 10/15/16 07:50 95.4 78 20 155/90 96 10/15/16 05:00 97.7 79 16 148/97 97 10/15/16 00:00 98.0 86 18 153/94 96 10/14/16 20:00 98.3 86 18 140/95 98 10/14/16 10/14/16 10/15/16 15:00 23:00 07:00 Intake Total 480 ml 720 ml Balance 480 ml 720 ml Intake Oral 480 ml 720 ml # Voids 3 2 2 . Laboratory Tests Test 10/14/16 10/15/16 04:05 05:05 White Blood Count 0.1 TH/MM3 0.1 TH/MM3 Red Blood Count 2.84 MIL/MM3 3.09 MIL/MM3 Hemoglobin 8.4 GM/DL 9.1 GM/DL Hematocrit 23.3 % 25.1 % Mean Corpuscular Volume 82.2 FL 81.2 FL Mean Corpuscular Hemoglobin 29.6 PG 29.4 PG Mean Corpuscular Hemoglobin 36.0 % 36.2 % Concent Red Cell Distribution Width 15.0 % 14.5 % Platelet Count 10 TH/MM3 14 TH/MM3 Mean Platelet Volume 7.6 FL 7.7 FL Neutrophils (%) (Auto) % % Lymphocytes (%) (Auto) % % Monocytes (%) (Auto) % % Eosinophils (%) (Auto) % % Basophils (%) (Auto) % % Neutrophils # (Auto) TH/MM3 TH/MM3 Lymphocytes # (Auto) TH/MM3 TH/MM3 Monocytes # (Auto) TH/MM3 TH/MM3 Eosinophils # (Auto) TH/MM3 TH/MM3 Basophils # (Auto) TH/MM3 TH/MM3 CBC Comment AUTO DIFF AUTO DIFF Differential Total Cells 15 5 Counted Neutrophils % (Manual) 13 % 20 % Lymphocytes % 87 % 80 % Neutrophils # (Manual) 0.0 TH/MM3 0.0 TH/MM3 Differential Comment FINAL DIFF FINAL DIFF MANUAL MANUAL Platelet Estimate RARE RARE Platelet Morphology Comment NORMAL NORMAL Red Cell Morphology Comment NORMAL Laboratory Tests Test 10/15/16 05:05 Sodium Level 138 MEQ/L Potassium Level 3.9 MEQ/L Chloride Level 101 MEQ/L Carbon Dioxide Level 31.5 MEQ/L Anion Gap 6 MEQ/L Blood Urea Nitrogen 10 MG/DL Creatinine 0.52 MG/DL Estimat Glomerular Filtration 170 ML/MIN Rate Random Glucose 246 MG/DL Calcium Level 8.5 MG/DL Imaging Last Impressions Chest X-Ray 10/09/16 0000 Signed Impressions: Service Date/Time: October 11:31 - CONCLUSION: The lungs are clear. Isai Blanco MD Physical Exam CONSTITUTIONAL/GENERAL: This is an adequately nourished patient, in no apparent distress. TUBES/LINES/DRAINS: PORT in R chest - site OK SKIN: No jaundice, scatered petechia BLE Skin temperature appropriate. Not diaphoretic. EYES: Pupils equal and round and reactive. Extraocular motions intact. No scleral icterus. No injection or drainage. Fundi not examined. ENT: Hearing grossly normal. Nose without bleeding or purulent drainage. Oral mucosae moist small wound on L buccal mucosae surrounded by erythmema and mild edema - better No palpable thyroid enlargement or nodularity. CARDIOVASCULAR: Regular rate and rhythm without murmurs, gallops, or rubs. RESPIRATORY/CHEST: Symmetric, unlabored respirations. Clear to auscultation. Breath sounds equal bilaterally. No wheezes, rales, or rhonchi. GASTROINTESTINAL: Abdomen soft, non-tender, nondistended. No hepato-splenomegaly , or palpable masses. No guarding. Bowel sounds present. MUSCULOSKELETAL: Extremities without clubbing, cyanosis, or edema. NEUROLOGICAL: Awake and alert. Motor and sensory grossly within normal limits. Follows commands. Cognitively sharp. Moves all extremities. PSYCHIATRIC: No obvious anxiety/depression. 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 source oral ulcer Reports adverse reaction to IV vanco in the form of diarrhea - cont zosyn - fu BC Laura Galarza MD Oct 15, 2016 18:37
[2016-10-15] MEDS: ATENOLOL 100 MG TAB PO SCH (21:18)
[2016-10-15] MEDS: SODIUM CHLOR 0.9% 250 ML INJ 250 ML IV SCH (22:59)
[2016-10-16] VITALS (7 sets, daily range): BP systolic 108–168; BP diastolic 57–100; PULSE 81–93; RESP 16–20; TEMP 97.3–99.2; O2SAT 93–98
[2016-10-16] MEDS: SODIUM CHLOR 0.9% 1000 ML INJ 1,000 ML IV SCH ×2 (00:16→12:55)
[2016-10-16 02:14] LABS: MEAN CORPUSCULAR HGB CONC 36.4 % (32.0-36.0)
[2016-10-16] MEDS: PIPERACIL-TAZO 3.375 GM PREMIX 50 ML IV SCH ×4 (03:58→22:23)
[2016-10-16 05:55] LABS: HEMATOCRIT 22.1 % (39.0-51.0); MEAN CELL VOLUME 81.2 FL (80.0-100.0); MEAN CORPUSCULAR HEMOGLOBIN 29.6 PG (27.0-34.0); PLATELET COUNT 24 TH/MM3 (150-450); RED BLOOD COUNT 2.72 MIL/MM3 (4.50-5.90); RED CELL DISTRIBUTION WIDTH 14.8 % (11.6-17.2); WHITE BLOOD COUNT 0.1 TH/MM3 (4.0-11.0)
[2016-10-16 06:17] LABS: BICARBONATE 31.3 MEQ/L (21.0-32.0); POTASSIUM 3.8 MEQ/L (3.5-5.1)
[2016-10-16 06:26] LABS: HEMO FLAGS AUTO DIFF
[2016-10-16] MEDS: INSULIN ASPART SUPPLEMENTAL SCALE SQ SCH ×4 (07:35→21:09)
[2016-10-16 07:46] LABS: BANDS 10 % (0-6); POLYS (SEG NEUTROPHILS) 25 % (16-70); WBC DIFF SAMPLE 20
[2016-10-16 07:47] LABS: PLATELET ESTIMATE SMEAR LOW (NORMAL); PLATELET MORPHOLOGY NORMAL (NORMAL); SCAN/DIFF FINAL DIFF MANUAL
--- NOTE | 2016-10-16 08:01 | PD.ONC.PN ---
Subjective Subjective Remarks Tmax 99.2 overnight. Pt resting in bed asleep on approach. Awakens easily to gentle shaking. He states the chemo went well yesterday. He has no complaints. Objective Data Date Time Temp Pulse Resp B/P Pulse Ox O2 Delivery O2 Flow Rate FiO2 10/16/16 05:30 99.2 93 16 108/57 95 10/15/16 23:09 97.7 87 18 141/80 93 10/15/16 22:20 18 10/15/16 20:00 98.2 79 18 159/100 96 10/15/16 15:50 97.4 83 20 159/93 97 10/15/16 13:38 18 10/15/16 13:35 84 18 147/89 10/15/16 11:50 97.9 77 20 166/104 97 10/15/16 10:42 151/97 10/15/16 09:00 96.7 80 20 164/99 99 10/15/16 08:40 97.7 76 18 165/102 99 10/15/16 08:25 96.2 74 20 158/100 99 Result Diagram: 10/16/1630 10/16/16 0530 Laboratory Results Laboratory Tests Test 10/16/16 05:30 White Blood Count 0.1 TH/MM3 Red Blood Count 2.72 MIL/MM3 Hemoglobin 8.0 GM/DL Hematocrit 22.1 % Mean Corpuscular Volume 81.2 FL Mean Corpuscular Hemoglobin 29.6 PG Mean Corpuscular Hemoglobin 36.4 % Concent Red Cell Distribution Width 14.8 % Platelet Count 24 TH/MM3 Mean Platelet Volume 7.7 FL Neutrophils (%) (Auto) % Lymphocytes (%) (Auto) % Monocytes (%) (Auto) % Eosinophils (%) (Auto) % Basophils (%) (Auto) % Neutrophils # (Auto) TH/MM3 Lymphocytes # (Auto) TH/MM3 Monocytes # (Auto) TH/MM3 Eosinophils # (Auto) TH/MM3 Basophils # (Auto) TH/MM3 CBC Comment AUTO DIFF Sodium Level 140 MEQ/L Potassium Level 3.8 MEQ/L Chloride Level 103 MEQ/L Carbon Dioxide Level 31.3 MEQ/L Anion Gap 6 MEQ/L Blood Urea Nitrogen 12 MG/DL Creatinine 0.51 MG/DL Estimat Glomerular Filtration 173 ML/MIN Rate Random Glucose 207 MG/DL Calcium Level 8.3 MG/DL Administered Medications Medications (Trade) Dose Ordered Sig/Génesis Route PRN Reason Start Time Stop Time Status Last Admin Dose Admin Acetaminophen (Tylenol) 650 mg Q4H PRN PO PAIN SCALE 0-3 OR TEMP> 100.5F 09/25/16 08:45 10/10/16 21:16 Oxycodone HCl (Roxicodone) 5 mg Q3H PRN PO PAIN SCALE 4 TO 7 09/25/16 08:45 10/15/16 21:20 Oxycodone HCl (Roxicodone) 10 mg Q3H PRN PO PAIN SCALE 8 TO 10 09/25/16 08:45 10/15/16 11:48 Sertraline HCl (Zoloft) 50 mg DAILY PO 09/26/16 09:00 10/15/16 08:33 Sodium Chloride (NS Flush) 2 ml BID IVF 09/25/16 21:00 10/15/16 09:16 Prochlorperazine Edisylate (Compazine Inj) 10 mg Q4H PRN IV NAUSEA OR VOMITING 09/25/16 10:15 10/15/16 22:47 Alteplase, Recombinant 2 mg 2 mg UNSCH PRN IVF SEE LABEL COMMENTS 09/25/16 10:15 10/10/16 09:09 Ondansetron HCl/ Dextrose (Zofran Inj/D5W Inj) 54 ml @ 216 mls/hr Q8H PRN IV PUSH NAUSEA OR VOMITING 09/25/16 10:30 09/27/16 02:13 Docusate Sodium 100 mg 100 mg TID PO 09/25/16 18:00 10/15/16 18:01 Sodium Chloride (NS 250 ml Inj) 250 ml @ 100 mls/hr Q24H IV 09/26/16 20:00 10/15/16 22:59 Amphetamine/ Dextroamphetamine (Adderall Xr) 15 mg DAILY PO 09/27/16 09:00 10/15/16 08:33 Fluconazole (Diflucan) 200 mg DAILY PO 09/27/16 13:00 Hold 10/10/16 09:09 Acetaminophen (Tylenol) 650 mg Q4H PRN PO FOR BLOOD PRODUCTS 09/30/16 22:00 10/15/16 07:23 Diphenhydramine HCl (Benadryl) 25 mg Q4H PRN PO FOR BLOOD PRODUCTS 09/30/16 22:00 10/15/16 07:23 Diazepam 10 mg 10 mg Q8HR PRN PO ANXIETY 10/09/16 07:01 10/15/16 21:20 Sodium Chloride 1,000 ml @ 75 mls/hr [id number] IV 10/12/16 02:15 10/16/16 00:16 Piperacillin Sod/ Tazobactam Sod 50 ml @ 100 mls/hr Q6H IV 10/13/16 16:00 10/16/16 03:58 Cladribine 12.05 mg/Sodium Chloride 112.05 ml @ 56.025 mls/hr Q24H IV 10/15/16 10:00 10/19/16 11:59 10/15/16 12:26 Cytarabine 4820 mg/Dextrose 500 ml @ 125 mls/hr Q24H IV 10/15/16 12:00 10/19/16 15:59 10/15/16 17:54 Granisetron HCl/ Dexamethasone Sodium Phosphate/ Sodium Chloride (Kytril Inj/ Decadron Inj/NS Inj) 56 ml @ 168 mls/hr Q24H IV 10/15/16 09:00 10/19/16 09:19 10/15/16 10:33 Atenolol (Tenormin) 100 mg HS PO 10/14/16 21:00 10/15/16 21:18 Amlodipine Besylate (Norvasc) 5 mg DAILY PO 10/15/16 09:00 10/15/16 09:16 Lisinopril 10 mg 10 mg DAILY PO 10/15/16 09:00 10/15/16 09:16 Filgrastim/ Dextrose (Neupogen Inj/ D5W Inj) 50.0 ml @ 100 mls/hr Q24H IV 10/15/16 11:00 10/15/16 11:42 Objective Remarks GENERAL: Middle aged male, lying in bed asleep in no distress. SKIN: Warm and dry. HEAD: Normocephalic. EYES: No injection or drainage. NECK: Supple, trachea midline. CARDIOVASCULAR: +S1/S2 RESPIRATORY: Breath sounds equal bilaterally. No accessory muscle use. GASTROINTESTINAL: Abdomen soft, non-tender, nondistended. EXTREMITIES: No cyanosis. No edema. NEUROLOGICAL: A&Ox3. Moving all extremities. Normal speech. Assessment/Plan Problem List: (1) Headache Status: Acute Plan: --will treat symptomatically --CT brain is negative --sounds consistent with migraine headache or tension type headache --d/w ID --patient reports he had these types of headaches on and off for several years (2) AML (acute myeloid leukemia) Status: Acute Plan: 10/16: Pt tolerated chemo well yesterday. No fevers. Counts OK. No headache. Continue chemo. Monitor counts, fevers. 10/15 start second cycle of CLAG-M today. D/W side effects and increase morbidity and mortality with the second cycle. He agreed . I will be OOT . Dr Newell will see him till thursday. 10/14: D19. patient started to receive Clarabine but the pump malfunction causing the chemo to spill on the floor. the chemo is being STAT ordered again and will arrive tomorrow morning. 10/13: bone marrow flow shows 70% blasts. d/w patient, repeating induction with CLAG-M chemotherapy or enrolling in a clinical trial. The patient would like to try a second induction with CLAG-M. will give Neupogen today and start tomorrow. 10/12: Mildly tachycardic today in the 110's, but no fever. PRBC x 2 ordered today. [employer] replacing potassium per protocol for level of 3.2. Will monitor blood counts, heart rate. Plan for repeat BMB on this upcoming week. 10/11: Spiked a fever this morning to 101.8. Will order blood cultures x 2, check UA. No longer tachycardic. Continue IV Abx. Transfuse 1 unit platelets today. 10/10: afebrile today. tolerating blood and platelet transfusions. will keep in ICU another night as he remains tachycardic. 10/09: bone marrow biopsy today. 1 unit platelets, 2 units pRBC. spiked fever 103F. cefepime started. spoke with ID, who advised me to start Daptomycin and Micafungin. transferred to ICU after becoming tachy in 140s 10/08: day 13. 1 unit platelets. bone marrow biopsy tomorrow. 10/07: flow cytometry results returned showing NPM1 + and FLT3 +. I obtained the original pathology again from to double check and the original FLT3 was NEGATIVE. NPM1 mutation was detected 43.4%, KIT mutation not detected. 46XY 10/06: 2 units pRBC today. plan to do bone marrow biopsy AM. 10/05: 1 unit platelets today 10/04: D9. no fever. 10/03: D8. no transfusion. monitor for fever 10/02: Will give 1 unit pRBC's, platelets today. Plan for repeat BMB on 10/10. 10/01: Finished chemotherapy yesterday. Tolerated well. 1 unit irradiated PRBC's to be transfused today. Continue to closely monitor blood counts. 09/30: D5. last day of chemotherapy. will give 1 unit platelets. 09/29: D4. continue chemotherapy. no transfusion. 09/28: D3. 09/27: D2 09/26: Start on CLAG-M chemotherapy for relapsed AML. Received Neupogen yesterday. He spiked a fever this afternoon of 101.3. BC, UA, and CXR ordered. Will start pt on Cefepime. Await BC results. -- He has been getting CBC q2 weeks. On 09/18 it was noted that he had a white count at 11k and a platelet count of 76k. Blasts were at 38%. He was brought in to the clinic on 09/24 for a bone marrow biopsy. A CBC was done and showed a white count of 63.7, Hgb 12.2, and platelet count was 33K. The blasts were at 73 %. Decision was made at that time to admit for salvage chemo. History: 11/04: AML Diagnosis made. 46XY, +NPM1 mutation detected, FLT3 negative-- indicates favorable prognosis. 11/05-11/28: Initial induction with MELL-C and idarubicin (7+3). STAT Leukapheresis due to leukostasis. On D25, repeat bone marrow showed residual leukemia. 12/06-12/27: Re-induction with FLANG chemotherapy. Repeat bone marrow biopsy negative for residual AML. Patient in Complete Remission 01/06-01/10: C1 consolidation chemotherapy with Mell-C. 02/17-02/21: C2 consolidation chemotherapy with MELL-C. 03/25-03/30: C3 consolidation chemotherapy with MELL-C 04/28-05/02: C4 consolidation chemo with MELL-C (3) Hypertension Status: Acute Plan: -- Hold amlodipine, lisinopril, continue atenolol (4) Diabetes Status: Acute Plan: --on SSI Novolog (5) Fever Status: Acute Plan: -- BC shows GNR --ID following -- on Zosyn -- CXR negative --u/a neg (6) DVT prophylaxis Status: Acute Plan: -- Thrombocytopenia; will hold off on chemical prophylaxis at this time. (7) Constipation Status: Acute Plan: --on Colace schedule --PRN laxative --PRN Relistor Assessment 46 y/o male admitted for salvage chemotherapy for relapsed AML. Attending Statement The exam, history, and the medical decision-making described in the above note were completed with the assistance of the mid-level provider. I reviewed and agree with the findings presented. I attest that I had a [id number] encounter with the patient on the same day, and personally performed and documented my assessment and findings in the medical record. Salvage chemotherapy for relapsed high risk AML no blood products today check daily CBC/ CMP , MAG and PHOSP Severe Neutropenia Continue IV Zosyn. Blood cultures negative to date nayana BANG Problem Qualifiers (1) Diabetes: Qualified Code: E11.9 - Type 2 diabetes mellitus without complication, without long-term current use of insulin (2) Fever: Qualified Code: R50.9 - Fever, unspecified fever cause (3) Constipation: Qualified Code: K59.00 - Constipation, unspecified constipation type Valarie Lopez Oct 16, 2016 08:01 Prince Newell MD Oct 16, 2016 22:39
[2016-10-16] MEDS: DOCUSATE SODIUM 100 MG CAP PO SCH ×3 (09:00→15:25)
[2016-10-16] MEDS: SODIUM CHLORIDE 10 ML FLUSH BID IVF SCH ×2 (09:00→21:00)
[2016-10-16] MEDS: LISINOPRIL 10 MG TAB PO SCH (09:14)
[2016-10-16] MEDS: SERTRALINE HCL 50 MG TAB PO SCH (09:14)
[2016-10-16] MEDS: DEXTROAMPHETAMINE/AMPHETAMINE XR 15 MG CAP PO SCH (09:14)
[2016-10-16] MEDS: amLODIPine BESYLATE 5 MG TAB PO SCH (09:14)
[2016-10-16] MEDS: FILGRASTIM INJ 480 MCG in DEXTROSE 5% IN WATER INJ 48.4 ML IV SCH ×2 (10:27)
[2016-10-16] MEDS: GRANISETRON INJ 1 MG, DEXAMETHASONE INJ 20 MG in SODIUM CHLORIDE 0.9% INJ 50 ML IV SCH (11:02)
[2016-10-16] MEDS: SODIUM CHLORIDE 0.9% IV SCH ×2 (11:48→23:34)
[2016-10-16] MEDS: CLADRIBINE IV SCH (11:48)
[2016-10-16] MEDS: WATE IV SCH ×2 (16:19)
[2016-10-16] MEDS: DEXTROSE 5% IV SCH ×2 (16:19)
[2016-10-16] MEDS: CYTARABINE IV SCH ×2 (16:19)
[2016-10-16] MEDS: SODIUM CHLOR 0.9% 250 ML INJ 250 ML IV SCH (20:00)
[2016-10-16] MEDS: ATENOLOL 100 MG TAB PO SCH (20:59)
[2016-10-16] MEDS: [UNRECOGNIZED DRUG - OTHER] IV SCH (23:34)
[2016-10-16] MEDS: DIAZEPAM 10 MG TAB PO PRN (23:53)
[2016-10-17] VITALS (8 sets, daily range): BP systolic 120–167; BP diastolic 76–101; PULSE 81–93; RESP 17–20; TEMP 96.4–98; O2SAT 94–99
[2016-10-17] MEDS: SODIUM CHLOR 0.9% 1000 ML INJ 1,000 ML IV SCH ×2 (00:30→18:31)
[2016-10-17] MEDS: PIPERACIL-TAZO 3.375 GM PREMIX 50 ML IV SCH ×3 (04:30→17:16)
[2016-10-17 06:40] LABS: HEMATOCRIT 22.1 % (39.0-51.0); MEAN CELL VOLUME 82.4 FL (80.0-100.0); MEAN CORPUSCULAR HGB CONC 35.2 % (32.0-36.0); RED BLOOD COUNT 2.68 MIL/MM3 (4.50-5.90); RED CELL DISTRIBUTION WIDTH 14.6 % (11.6-17.2); WHITE BLOOD COUNT 0.1 TH/MM3 (4.0-11.0)
[2016-10-17 06:46] LABS: HEMO FLAGS AUTO DIFF
[2016-10-17 06:47] LABS: PLATELET COUNT 15 TH/MM3 (150-450)
[2016-10-17] MEDS: INSULIN ASPART SUPPLEMENTAL SCALE SQ SCH ×4 (07:00→21:48)
[2016-10-17 07:09] LABS: ALT (GPT) 16 U/L (12-78); ANION GAP 7 MEQ/L (5-15); AST (GOT) 4 U/L (15-37); BICARBONATE 31.4 MEQ/L (21.0-32.0); BLOOD UREA NITROGEN 12 MG/DL (7-18); CHLORIDE 101 MEQ/L (98-107); GLOMERULAR FILTRATION RATE 191 ML/MIN (>89); POTASSIUM 3.7 MEQ/L (3.5-5.1); SODIUM (NA) 139 MEQ/L (136-145)
[2016-10-17 07:12] LABS: ALKALINE PHOSPHATASE 105 U/L (45-117); TOTAL BILIRUBIN ADULT 1.3 MG/DL (0.2-1.0)
[2016-10-17] MEDS ORDERED: ACETAMINOPHEN 325 MG TAB PO PRN (07:45)
[2016-10-17] MEDS ORDERED: diphenhydrAMINE HCL 25 MG CAP PO PRN (07:45)
[2016-10-17] MEDS ORDERED: SODIUM CHLOR 0.9% 250 ML INJ 250 ML IV ONE (07:45)
[2016-10-17 08:32] LABS: POLYS (SEG NEUTROPHILS) 30 % (16-70); WBC DIFF SAMPLE 20
[2016-10-17 08:35] LABS: PLATELET ESTIMATE SMEAR LOW (NORMAL); PLATELET MORPHOLOGY NORMAL (NORMAL); SCAN/DIFF FINAL DIFF MANUAL
[2016-10-17] MEDS: DOCUSATE SODIUM 100 MG CAP PO SCH ×3 (09:22→17:17)
[2016-10-17] MEDS: LISINOPRIL 10 MG TAB PO SCH (09:22)
[2016-10-17] MEDS: ACETAMINOPHEN 325 MG TAB PO PRN (09:22)
[2016-10-17] MEDS: DEXTROAMPHETAMINE/AMPHETAMINE XR 15 MG CAP PO SCH (09:23)
[2016-10-17] MEDS: SODIUM CHLORIDE 10 ML FLUSH BID IVF SCH ×2 (09:23→21:45)
[2016-10-17] MEDS: amLODIPine BESYLATE 5 MG TAB PO SCH (09:23)
[2016-10-17] MEDS: SERTRALINE HCL 50 MG TAB PO SCH (09:27)
[2016-10-17] MEDS: GRANISETRON INJ 1 MG, DEXAMETHASONE INJ 20 MG in SODIUM CHLORIDE 0.9% INJ 50 ML IV SCH (11:38)
[2016-10-17] MEDS: FILGRASTIM INJ 480 MCG in DEXTROSE 5% IN WATER INJ 48.4 ML IV SCH ×2 (12:03)
[2016-10-17] MEDS: SODIUM CHLORIDE 0.9% IV SCH ×2 (13:32→23:57)
[2016-10-17] MEDS: CLADRIBINE IV SCH (13:32)
--- NOTE | 2016-10-17 13:39 | PD.ONC.PN ---
Subjective Subjective Remarks Afebrile overnight. Denies further headaches. Feels well. States he has had some symptoms of nausea with chemotherapy, but they quickly went away. he is still eating and having bowel movements. Objective Data Date Time Temp Pulse Resp B/P Pulse Ox O2 Delivery O2 Flow Rate FiO2 10/17/16 12:00 96.4 91 19 127/76 96 10/17/16 11:23 97.7 93 20 120/77 98 10/17/16 11:09 96.5 90 20 133/80 99 10/17/16 08:52 96.6 84 18 127/81 97 10/17/16 05:30 96.5 89 17 125/77 94 10/17/16 03:00 19 10/17/16 00:00 97.2 89 17 141/90 98 10/16/16 20:00 97.3 86 17 161/98 98 10/16/16 19:00 168/100 10/16/16 18:38 81 163/92 97 10/16/16 15:50 98.5 88 20 160/86 93 Result Diagram: 10/17/16 0530 10/17/16 0530 Laboratory Results Laboratory Tests Test 10/17/16 10/17/16 05:30 09:05 White Blood Count 0.1 TH/MM3 Red Blood Count 2.68 MIL/MM3 Hemoglobin 7.8 GM/DL Hematocrit 22.1 % Mean Corpuscular Volume 82.4 FL Mean Corpuscular Hemoglobin 29.0 PG Mean Corpuscular Hemoglobin 35.2 % Concent Red Cell Distribution Width 14.6 % Platelet Count 15 TH/MM3 Mean Platelet Volume 8.2 FL Neutrophils (%) (Auto) % Lymphocytes (%) (Auto) % Monocytes (%) (Auto) % Eosinophils (%) (Auto) % Basophils (%) (Auto) % Neutrophils # (Auto) TH/MM3 Lymphocytes # (Auto) TH/MM3 Monocytes # (Auto) TH/MM3 Eosinophils # (Auto) TH/MM3 Basophils # (Auto) TH/MM3 CBC Comment AUTO DIFF Differential Total Cells 20 Counted Neutrophils % (Manual) 30 % Lymphocytes % 70 % Neutrophils # (Manual) 0.0 TH/MM3 Differential Comment FINAL DIFF MANUAL Platelet Estimate LOW Platelet Morphology Comment NORMAL Sodium Level 139 MEQ/L Potassium Level 3.7 MEQ/L Chloride Level 101 MEQ/L Carbon Dioxide Level 31.4 MEQ/L Anion Gap 7 MEQ/L Blood Urea Nitrogen 12 MG/DL Creatinine 0.47 MG/DL Estimat Glomerular Filtration 191 ML/MIN Rate Random Glucose 221 MG/DL Calcium Level 8.0 MG/DL Total Bilirubin 1.3 MG/DL Aspartate Amino Transf 4 U/L (AST/SGOT) Alanine Aminotransferase 16 U/L (ALT/SGPT) Alkaline Phosphatase 105 U/L Total Protein 5.5 GM/DL Albumin 2.7 GM/DL Blood Type O POSITIVE Antibody Screen NEGATIVE Crossmatch Irradiated/Leukocyte-Reduced RBC Blood Bank Comment Administered Medications Medications (Trade) Dose Ordered Sig/Génesis Route PRN Reason Start Time Stop Time Status Last Admin Dose Admin Acetaminophen (Tylenol) 650 mg Q4H PRN PO PAIN SCALE 0-3 OR TEMP> 100.5F 09/25/16 08:45 10/10/16 21:16 Oxycodone HCl (Roxicodone) 5 mg Q3H PRN PO PAIN SCALE 4 TO 7 09/25/16 08:45 10/16/16 21:02 Oxycodone HCl (Roxicodone) 10 mg Q3H PRN PO PAIN SCALE 8 TO 10 09/25/16 08:45 10/17/16 11:38 Sertraline HCl (Zoloft) 50 mg DAILY PO 09/26/16 09:00 10/17/16 09:27 Sodium Chloride (NS Flush) 2 ml BID IVF 09/25/16 21:00 10/17/16 09:23 Prochlorperazine Edisylate (Compazine Inj) 10 mg Q4H PRN IV NAUSEA OR VOMITING 09/25/16 10:15 10/15/16 22:47 Alteplase, Recombinant 2 mg 2 mg UNSCH PRN IVF SEE LABEL COMMENTS 09/25/16 10:15 10/10/16 09:09 Ondansetron HCl/ Dextrose (Zofran Inj/D5W Inj) 54 ml @ 216 mls/hr Q8H PRN IV PUSH NAUSEA OR VOMITING 09/25/16 10:30 09/27/16 02:13 Docusate Sodium 100 mg 100 mg TID PO 09/25/16 18:00 10/17/16 09:22 Sodium Chloride (NS 250 ml Inj) 250 ml @ 100 mls/hr Q24H IV 09/26/16 20:00 10/16/16 20:00 Amphetamine/ Dextroamphetamine (Adderall Xr) 15 mg DAILY PO 09/27/16 09:00 Hold 10/17/16 09:23 Fluconazole (Diflucan) 200 mg DAILY PO 09/27/16 13:00 Hold 10/10/16 09:09 Acetaminophen (Tylenol) 650 mg Q4H PRN PO FOR BLOOD PRODUCTS 09/30/16 22:00 10/17/16 09:22 Diphenhydramine HCl (Benadryl) 25 mg Q4H PRN PO FOR BLOOD PRODUCTS 09/30/16 22:00 10/15/16 07:23 Diazepam 10 mg 10 mg Q8HR PRN PO ANXIETY 10/09/16 07:01 10/16/16 23:53 Sodium Chloride 1,000 ml @ 75 mls/hr [id number] IV 10/12/16 02:15 10/17/16 00:30 Piperacillin Sod/ Tazobactam Sod 50 ml @ 100 mls/hr Q6H IV 10/13/16 16:00 10/17/16 09:22 Cladribine 12.05 mg/Sodium Chloride 112.05 ml @ 56.025 mls/hr Q24H IV 10/15/16 10:00 10/19/16 11:59 10/17/16 13:32 Cytarabine 4820 mg/Dextrose 500 ml @ 125 mls/hr Q24H IV 10/15/16 12:00 10/19/16 15:59 10/16/16 16:19 Granisetron HCl/ Dexamethasone Sodium Phosphate/ Sodium Chloride (Kytril Inj/ Decadron Inj/NS Inj) 56 ml @ 168 mls/hr Q24H IV 10/15/16 09:00 10/19/16 09:19 10/17/16 11:38 Atenolol (Tenormin) 100 mg HS PO 10/14/16 21:00 10/16/16 20:59 Amlodipine Besylate (Norvasc) 5 mg DAILY PO 10/15/16 09:00 10/17/16 09:23 Lisinopril 10 mg 10 mg DAILY PO 10/15/16 09:00 10/17/16 09:22 Filgrastim 480 mcg/Dextrose 50.0 ml @ 100 mls/hr Q24H IV 10/15/16 11:00 10/17/16 12:03 Mitoxantrone HCl/ Sodium Chloride (Novantrone Inj/ NS Inj) 112.05 ml @ 112.05 mls/hr Q24H IV 10/16/16 23:00 10/17/16 23:59 10/16/16 23:34 Objective Remarks GENERAL: Middle aged male, sitting up in bed in [facility]. SKIN: Warm and dry. HEAD: Normocephalic. EYES: No injection or drainage. NECK: Supple, trachea midline. CARDIOVASCULAR: Regular rate and rhythm RESPIRATORY: Breath sounds equal bilaterally. No accessory muscle use. GASTROINTESTINAL: Abdomen soft, non-tender, nondistended. EXTREMITIES: No cyanosis NEUROLOGICAL: awake and alert, normal speech. Assessment/Plan Problem List: (1) AML (acute myeloid leukemia) Status: Acute Plan: 10/17: D22/3. continue CLAG-M. no fever. 10/16: D21/2 Pt tolerated chemo well yesterday. No fevers. Counts OK. No headache. Continue chemo. Monitor counts, fevers. 10/15 D20/ start second cycle of CLAG-M today. D/W side effects and increase morbidity and mortality with the second cycle. He agreed . I will be OOT . Dr Newell will see him till thursday. 10/14: D19. patient started to receive Clarabine but the pump malfunction causing the chemo to spill on the floor. the chemo is being STAT ordered again and will arrive tomorrow morning. 10/13: bone marrow flow shows 70% blasts. d/w patient, repeating induction with CLAG-M chemotherapy or enrolling in a clinical trial. The patient would like to try a second induction with CLAG-M. will give Neupogen today and start tomorrow. 10/12: Mildly tachycardic today in the 110's, but no fever. PRBC x 2 ordered today. PATROL CONDUCTOR replacing potassium per protocol for level of 3.2. Will monitor blood counts, heart rate. Plan for repeat BMB on this upcoming week. 10/11: Spiked a fever this morning to 101.8. Will order blood cultures x 2, check UA. No longer tachycardic. Continue IV Abx. Transfuse 1 unit platelets today. 10/10: afebrile today. tolerating blood and platelet transfusions. will keep in ICU another night as he remains tachycardic. 10/09: bone marrow biopsy today. 1 unit platelets, 2 units pRBC. spiked fever 103F. cefepime started. spoke with ID, who advised me to start Daptomycin and Micafungin. transferred to ICU after becoming tachy in 140s 10/08: day 13. 1 unit platelets. bone marrow biopsy tomorrow. 10/07: flow cytometry results returned showing NPM1 + and FLT3 +. I obtained the original pathology again from to double check and the original FLT3 was NEGATIVE. NPM1 mutation was detected 43.4%, KIT mutation not detected. 46XY 10/06: 2 units pRBC today. plan to do bone marrow biopsy AM. 10/05: 1 unit platelets today 10/04: D9. no fever. 10/03: D8. no transfusion. monitor for fever 10/02: Will give 1 unit pRBC's, platelets today. Plan for repeat BMB on 10/10. 10/01: Finished chemotherapy yesterday. Tolerated well. 1 unit irradiated PRBC's to be transfused today. Continue to closely monitor blood counts. 09/30: D5. last day of chemotherapy. will give 1 unit platelets. 09/29: D4. continue chemotherapy. no transfusion. 09/28: D3. 09/27: D2 09/26: Start on CLAG-M chemotherapy for relapsed AML. Received Neupogen yesterday. He spiked a fever this afternoon of 101.3. BC, UA, and CXR ordered. Will start pt on Cefepime. Await BC results. --On 09/18 it was noted that he had a white count at 11k and a platelet count of 76k. Blasts were at 38%. He was brought in to the clinic on 09/24 for a bone marrow biopsy. A CBC was done and showed a white count of 63.7, Hgb 12.2, and platelet count was 33K. The blasts were at 73%. Decision was made at that time to admit for salvage chemo. History: 11/04: AML Diagnosis made. 46XY, +NPM1 mutation detected, FLT3 negative-- indicates favorable prognosis. 11/05-11/28: Initial induction with MELL-C and idarubicin (7+3). STAT Leukapheresis due to leukostasis. On D25, repeat bone marrow showed residual leukemia. 12/06-12/27: Re-induction with FLANG chemotherapy. Repeat bone marrow biopsy negative for residual AML. Patient in Complete Remission 01/06-01/10: C1 consolidation chemotherapy with Mell-C. 02/17-02/21: C2 consolidation chemotherapy with MELL-C. 03/25-03/30: C3 consolidation chemotherapy with MELL-C 04/28-05/02: C4 consolidation chemo with MELL-C (2) Hypertension Status: Acute Plan: -- Hold amlodipine, lisinopril, continue atenolol (3) Diabetes Status: Acute Plan: --on SSI Novolog (4) Fever Status: Acute Plan: -- BC shows GNR --ID following -- on Zosyn -- CXR negative --u/a neg (5) DVT prophylaxis Status: Acute Plan: -- Thrombocytopenia; will hold off on chemical prophylaxis at this time. (6) Constipation Status: Acute Plan: --on Colace schedule --PRN laxative --PRN Relistor Assessment 46 y/o male admitted for salvage chemotherapy for relapsed AML. Attending Statement The exam, history, and the medical decision-making described in the above note were completed with the assistance of the mid-level provider. I reviewed and agree with the findings presented. I attest that I had a [id number] encounter with the patient on the same day, and personally performed and documented my assessment and findings in the medical record. Patient with relapsed AML, getting salvage treatment I unit of pRBC and 1 unit of Platelets supportive care d/w rn Problem Qualifiers (1) Diabetes: Qualified Code: E11.9 - Type 2 diabetes mellitus without complication, without long-term current use of insulin (2) Fever: Qualified Code: R50.9 - Fever, unspecified fever cause (3) Constipation: Qualified Code: K59.00 - Constipation, unspecified constipation type Janet Holm Oct 17, 2016 13:39 Prince Newell MD Oct 17, 2016 23:54
[2016-10-17] MEDS: DEXTROSE 5% IV SCH ×2 (18:29)
[2016-10-17] MEDS: CYTARABINE IV SCH ×2 (18:29)
[2016-10-17] MEDS: WATE IV SCH ×2 (18:29)
[2016-10-17 21:09] LABS: MEAN CORPUSCULAR HGB CONC 37.3 % (32.0-36.0)
[2016-10-17] MEDS: DIAZEPAM 10 MG TAB PO PRN (21:43)
[2016-10-17] MEDS: ATENOLOL 100 MG TAB PO SCH (21:44)
[2016-10-17] MEDS: SODIUM CHLOR 0.9% 250 ML INJ 250 ML IV SCH (23:55)
[2016-10-17] MEDS: [UNRECOGNIZED DRUG - OTHER] IV SCH (23:57)
[2016-10-18] VITALS (12 sets, daily range): BP systolic 112–154; BP diastolic 62–97; PULSE 81–89; RESP 16–19; TEMP 96.6–99.4; O2SAT 95–99
[2016-10-18] MEDS: PIPERACIL-TAZO 3.375 GM PREMIX 50 ML IV SCH ×5 (01:07→21:22)
[2016-10-18] MEDS: SODIUM CHLOR 0.9% 1000 ML INJ 1,000 ML IV SCH ×2 (04:55→15:22)
[2016-10-18 05:57] LABS: MEAN CORPUSCULAR HEMOGLOBIN 30.2 PG (27.0-34.0); RED CELL DISTRIBUTION WIDTH 14.5 % (11.6-17.2); WHITE BLOOD COUNT 0.1 TH/MM3 (4.0-11.0)
[2016-10-18 06:09] LABS: BICARBONATE 30.6 MEQ/L (21.0-32.0); POTASSIUM 3.7 MEQ/L (3.5-5.1)
[2016-10-18 06:15] LABS: HEMATOCRIT 18.6 % (39.0-51.0)
[2016-10-18 06:16] LABS: PLATELET COUNT 18 TH/MM3 (150-450)
[2016-10-18 06:19] LABS: HEMO FLAGS AUTO DIFF
[2016-10-18] MEDS ORDERED: diphenhydrAMINE HCL 25 MG CAP PO PRN (07:45)
[2016-10-18] MEDS ORDERED: SODIUM CHLOR 0.9% 250 ML INJ 250 ML IV ONE (07:45)
[2016-10-18] MEDS ORDERED: ACETAMINOPHEN 325 MG TAB PO PRN (07:45)
[2016-10-18 08:16] LABS: PLATELET ESTIMATE SMEAR RARE (NORMAL); WBC DIFF SAMPLE 4
[2016-10-18 08:17] LABS: PLATELET MORPHOLOGY NORMAL (NORMAL); SCAN/DIFF FINAL DIFF MANUAL
[2016-10-18] MEDS: SODIUM CHLORIDE 10 ML FLUSH BID IVF SCH ×2 (09:00→21:00)
[2016-10-18] MEDS: SERTRALINE HCL 50 MG TAB PO SCH (09:04)
[2016-10-18] MEDS: DOCUSATE SODIUM 100 MG CAP PO SCH ×3 (09:04→15:51)
[2016-10-18] MEDS: LISINOPRIL 10 MG TAB PO SCH (09:04)
[2016-10-18] MEDS: INSULIN ASPART SUPPLEMENTAL SCALE SQ SCH ×3 (09:04→21:18)
[2016-10-18] MEDS: amLODIPine BESYLATE 5 MG TAB PO SCH (09:04)
[2016-10-18] MEDS: ACETAMINOPHEN 325 MG TAB PO PRN ×2 (09:43→14:07)
--- NOTE | 2016-10-18 11:50 | PD.ONC.PN ---
Subjective Subjective Remarks Afebrile overnight. Patient feeling well. Tolerating chemotherapy. Eating well. No complaints. Objective Data Date Time Temp Pulse Resp B/P Pulse Ox O2 Delivery O2 Flow Rate FiO2 10/18/16 10:50 96.8 82 18 112/68 96 10/18/16 10:30 98.4 82 18 121/71 99 10/18/16 08:00 97.3 82 18 134/79 98 10/18/16 05:22 99.4 89 19 113/62 95 10/18/16 00:00 96.7 85 18 154/97 98 10/17/16 20:00 97.1 85 17 167/101 97 10/17/16 18:31 98.0 81 20 150/97 99 10/17/16 12:00 96.4 91 19 127/76 96 10/18/16 10/18/16 10/18/16 07:00 15:00 23:00 Intake Total 566 ml Balance 566 ml Result Diagram: 10/18/16 0520 10/18/16519 Laboratory Results Laboratory Tests Test 10/18/16 10/18/16 05:20 07:41 White Blood Count 0.1 TH/MM3 Red Blood Count 2.30 MIL/MM3 Hemoglobin 6.9 GM/DL Hematocrit 18.6 % Mean Corpuscular Volume 81.0 FL Mean Corpuscular Hemoglobin 30.2 PG Mean Corpuscular Hemoglobin 37.3 % Concent Red Cell Distribution Width 14.5 % Platelet Count 18 TH/MM3 Mean Platelet Volume 7.7 FL Neutrophils (%) (Auto) % Lymphocytes (%) (Auto) % Monocytes (%) (Auto) % Eosinophils (%) (Auto) % Basophils (%) (Auto) % Neutrophils # (Auto) TH/MM3 Lymphocytes # (Auto) TH/MM3 Monocytes # (Auto) TH/MM3 Eosinophils # (Auto) TH/MM3 Basophils # (Auto) TH/MM3 CBC Comment AUTO DIFF Differential Total Cells 4 Counted Lymphocytes % 100 % Neutrophils # (Manual) 0.0 TH/MM3 Differential Comment FINAL DIFF MANUAL Platelet Estimate RARE Platelet Morphology Comment NORMAL Sodium Level 139 MEQ/L Potassium Level 3.7 MEQ/L Chloride Level 101 MEQ/L Carbon Dioxide Level 30.6 MEQ/L Anion Gap 7 MEQ/L Blood Urea Nitrogen 11 MG/DL Creatinine 0.46 MG/DL Estimat Glomerular Filtration 195 ML/MIN Rate Random Glucose 227 MG/DL Calcium Level 8.1 MG/DL Blood Type O POSITIVE Crossmatch Irradiated/Leukocyte-Reduced RBC Blood Bank Comment Administered Medications Medications (Trade) Dose Ordered Sig/Génesis Route PRN Reason Start Time Stop Time Status Last Admin Dose Admin Acetaminophen (Tylenol) 650 mg Q4H PRN PO PAIN SCALE 0-3 OR TEMP> 100.5F 09/25/16 08:45 10/10/16 21:16 Oxycodone HCl (Roxicodone) 5 mg Q3H PRN PO PAIN SCALE 4 TO 7 09/25/16 08:45 10/17/16 21:43 Oxycodone HCl (Roxicodone) 10 mg Q3H PRN PO PAIN SCALE 8 TO 10 09/25/16 08:45 10/17/16 11:38 Sertraline HCl (Zoloft) 50 mg DAILY PO 09/26/16 09:00 10/18/16 09:04 Sodium Chloride (NS Flush) 2 ml BID IVF 09/25/16 21:00 10/17/16 21:45 Prochlorperazine Edisylate (Compazine Inj) 10 mg Q4H PRN IV NAUSEA OR VOMITING 09/25/16 10:15 10/15/16 22:47 Alteplase, Recombinant 2 mg 2 mg UNSCH PRN IVF SEE LABEL COMMENTS 09/25/16 10:15 10/10/16 09:09 Ondansetron HCl/ Dextrose (Zofran Inj/D5W Inj) 54 ml @ 216 mls/hr Q8H PRN IV PUSH NAUSEA OR VOMITING 09/25/16 10:30 09/27/16 02:13 Docusate Sodium 100 mg 100 mg TID PO 09/25/16 18:00 10/18/16 09:04 Sodium Chloride (NS 250 ml Inj) 250 ml @ 100 mls/hr Q24H IV 09/26/16 20:00 10/17/16 23:55 Amphetamine/ Dextroamphetamine (Adderall Xr) 15 mg DAILY PO 09/27/16 09:00 Hold 10/17/16 09:23 Fluconazole (Diflucan) 200 mg DAILY PO 09/27/16 13:00 Hold 10/10/16 09:09 Acetaminophen (Tylenol) 650 mg Q4H PRN PO FOR BLOOD PRODUCTS 09/30/16 22:00 10/18/16 09:43 Diphenhydramine HCl (Benadryl) 25 mg Q4H PRN PO FOR BLOOD PRODUCTS 09/30/16 22:00 10/15/16 07:23 Diazepam 10 mg 10 mg Q8HR PRN PO ANXIETY 10/09/16 07:01 10/17/16 21:43 Sodium Chloride 1,000 ml @ 75 mls/hr [id number] IV 10/12/16 02:15 10/18/16 04:55 Piperacillin Sod/ Tazobactam Sod 50 ml @ 100 mls/hr Q6H IV 10/13/16 16:00 10/18/16 09:04 Cladribine 12.05 mg/Sodium Chloride 112.05 ml @ 56.025 mls/hr Q24H IV 10/15/16 10:00 10/19/16 11:59 10/17/16 13:32 Cytarabine 4820 mg/Dextrose 500 ml @ 125 mls/hr Q24H IV 10/15/16 12:00 10/19/16 15:59 10/17/16 18:29 Granisetron HCl/ Dexamethasone Sodium Phosphate/ Sodium Chloride (Kytril Inj/ Decadron Inj/NS Inj) 56 ml @ 168 mls/hr Q24H IV 10/15/16 09:00 10/19/16 09:19 10/17/16 11:38 Atenolol (Tenormin) 100 mg HS PO 10/14/16 21:00 10/17/16 21:44 Amlodipine Besylate (Norvasc) 5 mg DAILY PO 10/15/16 09:00 10/18/16 09:04 Lisinopril 10 mg 10 mg DAILY PO 10/15/16 09:00 10/18/16 09:04 Filgrastim 480 mcg/Dextrose 50.0 ml @ 100 mls/hr Q24H IV 10/15/16 11:00 10/17/16 12:03 Sodium Chloride (NS 250 ml Inj) 250 ml @ 15 mls/hr ONCE ONCE IV 10/18/16 07:45 10/19/16 00:24 10/18/16 07:45 Diphenhydramine HCl (Benadryl) 25 mg Q4H PRN PO SEE LABEL COMMENTS 10/18/16 07:45 10/18/16 11:46 10/18/16 09:43 Objective Remarks GENERAL: Middle aged male, lying in bed in nad SKIN: Warm and dry. port in place, site clean. HEAD: Normocephalic. EYES: No injection or drainage. NECK: Supple, trachea midline. CARDIOVASCULAR: Regular rate and rhythm RESPIRATORY: Breath sounds equal bilaterally. No accessory muscle use. GASTROINTESTINAL: Abdomen soft, non-tender, nondistended. EXTREMITIES: No cyanosis or edema. NEUROLOGICAL: awake and alert, normal speech. moving all extremities. Assessment/Plan Problem List: (1) AML (acute myeloid leukemia) Status: Acute Plan: 10/18: D23/4. give 2 units pRBC today. monitor for fever 10/17: D22/3. continue CLAG-M. no fever. 10/16: D21/2 Pt tolerated chemo well yesterday. No fevers. Counts OK. No headache. Continue chemo. Monitor counts, fevers. 10/15 D20/ start second cycle of CLAG-M today. D/W side effects and increase morbidity and mortality with the second cycle. He agreed . I will be OOT . Dr Newell will see him till thursday. 10/14: D19. patient started to receive Clarabine but the pump malfunction causing the chemo to spill on the floor. the chemo is being STAT ordered again and will arrive tomorrow morning. 10/13: bone marrow flow shows 70% blasts. d/w patient, repeating induction with CLAG-M chemotherapy or enrolling in a clinical trial. The patient would like to try a second induction with CLAG-M. will give Neupogen today and start tomorrow. 10/12: Mildly tachycardic today in the 110's, but no fever. PRBC x 2 ordered today. 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 Will monitor blood counts, heart rate. Plan for repeat BMB on this upcoming week. 10/11: Spiked a fever this morning to 101.8. Will order blood cultures x 2, check UA. No longer tachycardic. Continue IV Abx. Transfuse 1 unit platelets today. 10/10: afebrile today. tolerating blood and platelet transfusions. will keep in ICU another night as he remains tachycardic. 10/09: bone marrow biopsy today. 1 unit platelets, 2 units pRBC. spiked fever 103F. cefepime started. spoke with ID, who advised me to start Daptomycin and Micafungin. transferred to ICU after becoming tachy in 140s 10/08: day 13. 1 unit platelets. bone marrow biopsy tomorrow. 10/07: flow cytometry results returned showing NPM1 + and FLT3 +. I obtained the original pathology again from to double check and the original FLT3 was NEGATIVE. NPM1 mutation was detected 43.4%, KIT mutation not detected. 46XY 10/06: 2 units pRBC today. plan to do bone marrow biopsy AM. 10/05: 1 unit platelets today 10/04: D9. no fever. 10/03: D8. no transfusion. monitor for fever 10/02: Will give 1 unit pRBC's, platelets today. Plan for repeat BMB on 10/10. 10/01: Finished chemotherapy yesterday. Tolerated well. 1 unit irradiated PRBC's to be transfused today. Continue to closely monitor blood counts. 09/30: D5. last day of chemotherapy. will give 1 unit platelets. 09/29: D4. continue chemotherapy. no transfusion. 09/28: D3. 09/27: D2 09/26: Start on CLAG-M chemotherapy for relapsed AML. Received Neupogen yesterday. He spiked a fever this afternoon of 101.3. BC, UA, and CXR ordered. Will start pt on Cefepime. Await BC results. --On 09/18 it was noted that he had a white count at 11k and a platelet count of 76k. Blasts were at 38%. He was brought in to the clinic on 09/24 for a bone marrow biopsy. A CBC was done and showed a white count of 63.7, Hgb 12.2, and platelet count was 33K. The blasts were at 73%. Decision was made at that time to admit for salvage chemo. History: 11/04: AML Diagnosis made. 46XY, +NPM1 mutation detected, FLT3 negative-- indicates favorable prognosis. 11/05-11/28: Initial induction with MELL-C and idarubicin (7+3). STAT Leukapheresis due to leukostasis. On D2, repeat bone marrow showed residual leukemia. 12/06-12/27: Re-induction with FLANG chemotherapy. Repeat bone marrow biopsy negative for residual AML. Patient in Complete Remission 01/06-01/10: C1 consolidation chemotherapy with Mell-C. 02/17-02/21: C2 consolidation chemotherapy with MELL-C. 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 (6) Constipation Status: Acute Plan: --on Colace schedule --PRN laxative --PRN Relistor Assessment 46 y/o male admitted for salvage chemotherapy for relapsed AML. Attending Statement The exam, history, and the medical decision-making described in the above note were completed with the assistance of the mid-level provider. I reviewed and agree with the findings presented. I attest that I had a [id number] encounter with the patient on the same day, and personally performed and documented my assessment and findings in the medical record. Problem Qualifiers (1) Diabetes: Qualified Code: E11.9 - Type 2 diabetes mellitus without complication, without long-term current use of insulin (2) Fever: Qualified Code: R50.9 - Fever, unspecified fever cause (3) Constipation: Qualified Code: K59.00 - Constipation, unspecified constipation type Janet Holm Oct 18, 2016 11:50 Prince Newell MD Oct 18, 2016 23:45
[2016-10-18] MEDS ORDERED: FILGRASTIM INJ 480 MCG in DEXTROSE 5% IN WATER INJ 25 ML IV SCH ×2 (12:30)
[2016-10-18] MEDS: diphenhydrAMINE HCL 25 MG CAP PO PRN (14:07)
[2016-10-18] MEDS: GRANISETRON INJ 1 MG, DEXAMETHASONE INJ 20 MG in SODIUM CHLORIDE 0.9% INJ 50 ML IV SCH (15:51)
[2016-10-18] MEDS: CLADRIBINE IV SCH (16:37)
[2016-10-18] MEDS: SODIUM CHLORIDE 0.9% IV SCH (16:37)
[2016-10-18] MEDS: WATE IV SCH ×2 (21:01)
[2016-10-18] MEDS: CYTARABINE IV SCH ×2 (21:01)
[2016-10-18] MEDS: DEXTROSE 5% IV SCH ×2 (21:01)
[2016-10-18] MEDS: ATENOLOL 100 MG TAB PO SCH (21:09)
[2016-10-18] MEDS: DIAZEPAM 10 MG TAB PO PRN (21:10)
[2016-10-19] VITALS (7 sets, daily range): BP systolic 129–161; BP diastolic 79–96; PULSE 78–87; RESP 16–20; TEMP 95.1–98.3; O2SAT 94–98
[2016-10-19] MEDS: SODIUM CHLOR 0.9% 250 ML INJ 250 ML IV SCH ×2 (01:00→20:01)
[2016-10-19] MEDS: PIPERACIL-TAZO 3.375 GM PREMIX 50 ML IV SCH ×4 (04:55→22:09)
[2016-10-19 06:32] LABS: BICARBONATE 31.2 MEQ/L (21.0-32.0); POTASSIUM 3.9 MEQ/L (3.5-5.1)
[2016-10-19 06:39] LABS: HEMATOCRIT 21.8 % (39.0-51.0); MEAN CELL VOLUME 79.8 FL (80.0-100.0); MEAN CORPUSCULAR HEMOGLOBIN 28.5 PG (27.0-34.0); MEAN CORPUSCULAR HGB CONC 35.7 % (32.0-36.0); RED BLOOD COUNT 2.73 MIL/MM3 (4.50-5.90); RED CELL DISTRIBUTION WIDTH 14.1 % (11.6-17.2)
[2016-10-19 06:58] LABS: HEMO FLAGS AUTO DIFF; PLATELET COUNT 11 TH/MM3 (150-450)
[2016-10-19] MEDS: SODIUM CHLORIDE 10 ML FLUSH BID IVF SCH ×2 (09:00→22:09)
--- NOTE | 2016-10-19 09:06 | PD.ONC.PN ---
Subjective Subjective Remarks Afebrile overnight. Patient resting comfortably without complaint. Tolerating chemotherapy. Last night he had some heartburn, but that has resolved. No vomiting. He is eating well. No bleeding. Objective Data Date Time Temp Pulse Resp B/P Pulse Ox O2 Delivery O2 Flow Rate FiO2 10/19/16 04:00 97.7 80 20 137/84 94 10/19/16 00:00 97.0 79 18 152/88 94 10/18/16 22:30 18 10/18/16 20:39 96.6 81 16 150/95 96 10/18/16 16:00 97.0 84 18 147/92 97 10/18/16 14:30 98.0 82 18 132/82 96 10/18/16 14:16 98.0 82 18 139/82 98 10/18/16 13:48 98.7 87 18 139/87 96 10/18/16 12:00 96.7 87 18 115/67 97 10/18/16 11:05 96.7 87 18 115/67 98 10/18/16 10:50 96.8 82 18 112/68 96 10/18/16 10:30 98.4 82 18 121/71 99 10/19/16 10/19/16 10/19/16 07:00 15:00 23:00 Intake Total 790 ml Balance 790 ml Result Diagram: 10/19/16 0455 10/19/16 0455 Laboratory Results Laboratory Tests Test 10/19/16 10/19/16 04:55 07:37 White Blood Count 0.0 TH/MM3 Red Blood Count 2.73 MIL/MM3 Hemoglobin 7.8 GM/DL Hematocrit 21.8 % Mean Corpuscular Volume 79.8 FL Mean Corpuscular Hemoglobin 28.5 PG Mean Corpuscular Hemoglobin 35.7 % Concent Red Cell Distribution Width 14.1 % Platelet Count 11 TH/MM3 Mean Platelet Volume 7.9 FL Neutrophils (%) (Auto) % Lymphocytes (%) (Auto) % Monocytes (%) (Auto) % Eosinophils (%) (Auto) % Basophils (%) (Auto) % Neutrophils # (Auto) TH/MM3 Lymphocytes # (Auto) TH/MM3 Monocytes # (Auto) TH/MM3 Eosinophils # (Auto) TH/MM3 Basophils # (Auto) TH/MM3 CBC Comment AUTO DIFF Sodium Level 138 MEQ/L Potassium Level 3.9 MEQ/L Chloride Level 102 MEQ/L Carbon Dioxide Level 31.2 MEQ/L Anion Gap 5 MEQ/L Blood Urea Nitrogen 11 MG/DL Creatinine 0.39 MG/DL Estimat Glomerular Filtration 236 ML/MIN Rate Random Glucose 234 MG/DL Calcium Level 8.3 MG/DL Blood Bank Comment Administered Medications Medications (Trade) Dose Ordered Sig/Génesis Route PRN Reason Start Time Stop Time Status Last Admin Dose Admin Acetaminophen (Tylenol) 650 mg Q4H PRN PO PAIN SCALE 0-3 OR TEMP> 100.5F 09/25/16 08:45 10/10/16 21:16 Oxycodone HCl (Roxicodone) 5 mg Q3H PRN PO PAIN SCALE 4 TO 7 09/25/16 08:45 10/18/16 21:09 Oxycodone HCl (Roxicodone) 10 mg Q3H PRN PO PAIN SCALE 8 TO 10 09/25/16 08:45 10/18/16 12:59 Sertraline HCl (Zoloft) 50 mg DAILY PO 09/26/16 09:00 10/18/16 09:04 Sodium Chloride (NS Flush) 2 ml BID IVF 09/25/16 21:00 10/18/16 21:00 Prochlorperazine Edisylate (Compazine Inj) 10 mg Q4H PRN IV NAUSEA OR VOMITING 09/25/16 10:15 10/15/16 22:47 Alteplase, Recombinant 2 mg 2 mg UNSCH PRN IVF SEE LABEL COMMENTS 09/25/16 10:15 10/10/16 09:09 Ondansetron HCl/ Dextrose (Zofran Inj/D5W Inj) 54 ml @ 216 mls/hr Q8H PRN IV PUSH NAUSEA OR VOMITING 09/25/16 10:30 09/27/16 02:13 Docusate Sodium 100 mg 100 mg TID PO 09/25/16 18:00 10/18/16 15:51 Sodium Chloride (NS 250 ml Inj) 250 ml @ 100 mls/hr Q24H IV 09/26/16 20:00 10/19/16 01:00 Amphetamine/ Dextroamphetamine (Adderall Xr) 15 mg DAILY PO 09/27/16 09:00 Hold 10/17/16 09:23 Fluconazole (Diflucan) 200 mg DAILY PO 09/27/16 13:00 10/10/16 09:09 Acetaminophen (Tylenol) 650 mg Q4H PRN PO FOR BLOOD PRODUCTS 09/30/16 22:00 10/18/16 14:07 Diphenhydramine HCl (Benadryl) 25 mg Q4H PRN PO FOR BLOOD PRODUCTS 09/30/16 22:00 10/18/16 14:07 Diazepam 10 mg 10 mg Q8HR PRN PO ANXIETY 10/09/16 07:01 10/18/16 21:10 Sodium Chloride 1,000 ml @ 75 mls/hr [id number] IV 10/12/16 02:15 10/18/16 04:55 Piperacillin Sod/ Tazobactam Sod 50 ml @ 100 mls/hr Q6H IV 10/13/16 16:00 10/19/16 04:55 Cladribine 12.05 mg/Sodium Chloride 112.05 ml @ 56.025 mls/hr Q24H IV 10/15/16 10:00 10/19/16 11:59 10/18/16 16:37 Cytarabine 4820 mg/Dextrose 500 ml @ 125 mls/hr Q24H IV 10/15/16 12:00 10/19/16 15:59 10/18/16 21:01 Granisetron HCl/ Dexamethasone Sodium Phosphate/ Sodium Chloride (Kytril Inj/ Decadron Inj/NS Inj) 56 ml @ 168 mls/hr Q24H IV 10/15/16 09:00 10/19/16 09:19 10/18/16 15:51 Atenolol (Tenormin) 100 mg HS PO 10/14/16 21:00 10/18/16 21:09 Amlodipine Besylate (Norvasc) 5 mg DAILY PO 10/15/16 09:00 10/18/16 09:04 Lisinopril (Prinivil) 10 mg DAILY PO 10/15/16 09:00 10/18/16 09:04 Objective Remarks GENERAL: Middle aged male, sitting up in bed in nad. SKIN: Warm and dry. port site clean. HEAD: Normocephalic. EYES: No injection or drainage. NECK: Supple, trachea midline. CARDIOVASCULAR: Regular rate and rhythm RESPIRATORY: Breath sounds equal bilaterally. No accessory muscle use. GASTROINTESTINAL: Abdomen soft, non-tender, nondistended. EXTREMITIES: No cyanosis or edema. NEUROLOGICAL: aox3. moving all extremities. no obvious focal deficit. Assessment/Plan Problem List: (1) AML (acute myeloid leukemia) Status: Acute Plan: 10/19: D24/5 1 unit platelets. last day of chemotherapy 10/18: D23/4. give 2 units pRBC today. monitor for fever 10/17: D22/3. continue CLAG-M. no fever. 10/16: D21/2 Pt tolerated chemo well yesterday. No fevers. Counts OK. No headache. Continue chemo. Monitor counts, fevers. 10/15 D20/1 start second cycle of CLAG-M today. D/W side effects and increase morbidity and mortality with the second cycle. He agreed . I will be OOT . Dr Newell will see him till thursday. 10/14: D19. patient started to receive Clarabine but the pump malfunction causing the chemo to spill on the floor. the chemo is being STAT ordered again and will arrive tomorrow morning. 10/13: bone marrow flow shows 70% blasts. d/w patient, repeating induction with CLAG-M chemotherapy or enrolling in a clinical trial. The patient would like to try a second induction with CLAG-M. will give Neupogen today and start tomorrow. 10/12: Mildly tachycardic today in the 110's, but no fever. PRBC x 2 ordered today. 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 Will monitor blood counts, heart rate. Plan for repeat BMB on this upcoming week. 10/11: Spiked a fever this morning to 101.8. Will order blood cultures x 2, check UA. No longer tachycardic. Continue IV Abx. Transfuse 1 unit platelets today. 10/10: afebrile today. tolerating blood and platelet transfusions. will keep in ICU another night as he remains tachycardic. 10/09: bone marrow biopsy today. 1 unit platelets, 2 units pRBC. spiked fever 103F. cefepime started. spoke with ID, who advised me to start Daptomycin and Micafungin. transferred to ICU after becoming tachy in 140s 10/08: day 13. 1 unit platelets. bone marrow biopsy tomorrow. 10/07: flow cytometry results returned showing NPM1 + and FLT3 +. I obtained the original pathology again from to double check and the original FLT3 was NEGATIVE. NPM1 mutation was detected 43.4%, KIT mutation not detected. 46XY 10/06: 2 units pRBC today. plan to do bone marrow biopsy AM. 10/05: 1 unit platelets today 10/04: D9. no fever. 10/03: D8. no transfusion. monitor for fever 10/02: Will give 1 unit pRBC's, platelets today. Plan for repeat BMB on 10/10. 10/01: Finished chemotherapy yesterday. Tolerated well. 1 unit irradiated PRBC's to be transfused today. Continue to closely monitor blood counts. 09/30: D5. last day of chemotherapy. will give 1 unit platelets. 09/29: D4. continue chemotherapy. no transfusion. 09/28: D3. 09/27: D2 09/26: Start on CLAG-M chemotherapy for relapsed AML. Received Neupogen yesterday. He spiked a fever this afternoon of 101.3. BC, UA, and CXR ordered. Will start pt on Cefepime. Await BC results. --On 09/18 it was noted that he had a white count at 11k and a platelet count of 76k. Blasts were at 38%. He was brought in to the clinic on 09/24 for a bone marrow biopsy. A CBC was done and showed a white count of 63.7, Hgb 12.2, and platelet count was 33K. The blasts were at 73%. Decision was made at that time to admit for salvage chemo. History: 11/04: AML Diagnosis made. 46XY, +NPM1 mutation detected, FLT3 negative-- indicates favorable prognosis. 11/05-11/28: Initial induction with MELL-C and idarubicin (7+3). STAT Leukapheresis due to leukostasis. On D25, repeat bone marrow showed residual leukemia. 12/06-12/27: Re-induction with FLANG chemotherapy. Repeat bone marrow biopsy negative for residual AML. Patient in Complete Remission 01/06-01/10: C1 consolidation chemotherapy with Mell-C. 02/17-02/21: C2 consolidation chemotherapy with MELL-C. 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 (6) Constipation Status: Acute Plan: --on Colace schedule --PRN laxative --PRN Relistor Assessment 46 y/o male admitted for salvage chemotherapy for relapsed AML. Attending Statement The exam, history, and the medical decision-making described in the above note were completed with the assistance of the mid-level provider. I reviewed and agree with the findings presented. I attest that I had a [id number] encounter with the patient on the same day, and personally performed and documented my assessment and findings in the medical record. Salvage chemotherapy for relapsed high risk AML PPI and Sucralfate for GERD Transfuse 1 unit of irradiated platelets Severe neutropenia--monitor for fevers. Start IV cefepime and blood cultures if spikes a fever supportive care ongoing complex patient with multiple ongoing medical issues. d/w rn Problem Qualifiers (1) Diabetes: Qualified Code: E11.9 - Type 2 diabetes mellitus without complication, without long-term current use of insulin (2) Fever: Qualified Code: R50.9 - Fever, unspecified fever cause (3) Constipation: Qualified Code: K59.00 - Constipation, unspecified constipation type Janet Holm Oct 19, 2016 09:06 Prince Newell MD Oct 19, 2016 22:55
[2016-10-19] MEDS ORDERED: EUCERIN CREAM 120 GM JAR TOPICAL ONE (09:15)
[2016-10-19 09:21] LABS: PLATELET ESTIMATE SMEAR RARE (NORMAL); PLATELET MORPHOLOGY NORMAL (NORMAL); SCAN/DIFF FINAL DIFF MANUAL; WBC DIFF SAMPLE 2
[2016-10-19] MEDS: LISINOPRIL 10 MG TAB PO SCH (09:23)
[2016-10-19] MEDS: SERTRALINE HCL 50 MG TAB PO SCH (09:23)
[2016-10-19] MEDS: INSULIN ASPART SUPPLEMENTAL SCALE SQ SCH ×4 (09:23→22:14)
[2016-10-19] MEDS: ACETAMINOPHEN 325 MG TAB PO PRN (09:24)
[2016-10-19] MEDS: DOCUSATE SODIUM 100 MG CAP PO SCH ×3 (09:24→16:31)
[2016-10-19] MEDS: amLODIPine BESYLATE 5 MG TAB PO SCH (09:24)
[2016-10-19] MEDS: diphenhydrAMINE HCL 25 MG CAP PO PRN (09:24)
[2016-10-19] MEDS: FLUCONAZOLE 200 MG TAB PO SCH (09:24)
[2016-10-19] MEDS ORDERED: PANTOPRAZOLE SODIUM 40 MG VIAL IV PUSH ONE (11:30)
[2016-10-19] MEDS ORDERED: FILGRASTIM INJ 480 MCG in DEXTROSE 5% IN WATER INJ 25 ML IV ONE ×2 (13:00)
[2016-10-19] MEDS: GRANISETRON INJ 1 MG, DEXAMETHASONE INJ 20 MG in SODIUM CHLORIDE 0.9% INJ 50 ML IV SCH (15:11)
[2016-10-19] MEDS: CLADRIBINE IV SCH (15:45)
[2016-10-19] MEDS: SODIUM CHLORIDE 0.9% IV SCH (15:45)
[2016-10-19] MEDS: SUCRALFATE 1 GM/10 ML CUP PO SCH ×2 (16:31→22:11)
[2016-10-19] MEDS: DEXTROSE 5% IV SCH ×2 (20:17)
[2016-10-19] MEDS: WATE IV SCH ×2 (20:17)
[2016-10-19] MEDS: CYTARABINE IV SCH ×2 (20:17)
[2016-10-19] MEDS: SODIUM CHLOR 0.9% 1000 ML INJ 1,000 ML IV SCH (20:22)
[2016-10-19] MEDS: ATENOLOL 100 MG TAB PO SCH (22:06)
[2016-10-20] VITALS (8 sets, daily range): BP systolic 140–163; BP diastolic 86–99; PULSE 79–86; RESP 16–20; TEMP 96.6–98; O2SAT 91–99
[2016-10-20] MEDS: DIAZEPAM 10 MG TAB PO PRN (00:42)
[2016-10-20] MEDS: SODIUM CHLORIDE 0.9% FLUSH 10 ML FLUSH IVF PRN ×3 (04:29→23:16)
[2016-10-20] MEDS: PIPERACIL-TAZO 3.375 GM PREMIX 50 ML IV SCH ×4 (04:33→22:00)
[2016-10-20 05:03] LABS: HEMATOCRIT 21.4 % (39.0-51.0); MEAN CELL VOLUME 80.2 FL (80.0-100.0); MEAN CORPUSCULAR HEMOGLOBIN 28.1 PG (27.0-34.0); RED BLOOD COUNT 2.67 MIL/MM3 (4.50-5.90); RED CELL DISTRIBUTION WIDTH 13.5 % (11.6-17.2)
[2016-10-20 05:15] LABS: HEMO FLAGS AUTO DIFF
[2016-10-20 05:16] LABS: PLATELET COUNT 15 TH/MM3 (150-450)
[2016-10-20 05:30] LABS: BICARBONATE 31.8 MEQ/L (21.0-32.0); POTASSIUM 3.8 MEQ/L (3.5-5.1)
[2016-10-20] MEDS: SUCRALFATE 1 GM/10 ML CUP PO SCH (07:00)
[2016-10-20 07:07] LABS: EOSINOPHILS 33 % (0-4); POLYS (SEG NEUTROPHILS) 33 % (16-70); WBC DIFF SAMPLE 3
[2016-10-20 07:08] LABS: PLATELET ESTIMATE SMEAR RARE (NORMAL); PLATELET MORPHOLOGY NORMAL (NORMAL); SCAN/DIFF FINAL DIFF MANUAL
[2016-10-20] MEDS ORDERED: ACETAMINOPHEN 325 MG TAB PO PRN (08:00)
[2016-10-20] MEDS ORDERED: diphenhydrAMINE HCL 25 MG CAP PO PRN (08:00)
[2016-10-20] MEDS ORDERED: SODIUM CHLOR 0.9% 250 ML INJ 250 ML IV ONE (08:00)
[2016-10-20] MEDS: SERTRALINE HCL 50 MG TAB PO SCH (10:02)
[2016-10-20] MEDS: FLUCONAZOLE 200 MG TAB PO SCH (10:02)
[2016-10-20] MEDS: LISINOPRIL 10 MG TAB PO SCH (10:03)
[2016-10-20] MEDS: DOCUSATE SODIUM 100 MG CAP PO SCH ×3 (10:03→19:00)
[2016-10-20] MEDS: amLODIPine BESYLATE 5 MG TAB PO SCH (10:03)
[2016-10-20] MEDS: SODIUM CHLORIDE 10 ML FLUSH BID IVF SCH (10:04)
[2016-10-20] MEDS: INSULIN ASPART SUPPLEMENTAL SCALE SQ SCH ×4 (10:07→22:10)
[2016-10-20] MEDS ORDERED: DEXTROAMPHETAMINE/AMPHETAMINE XR 5 MG CAP PO ONE (11:30)
[2016-10-20] MEDS: diphenhydrAMINE HCL 25 MG CAP PO PRN (11:41)
[2016-10-20] MEDS: ACETAMINOPHEN 325 MG TAB PO PRN (11:41)
--- NOTE | 2016-10-20 12:14 | PD.ONC.PN ---
Subjective Subjective Remarks Afebrile overnight. Patient tells me he felt very anxious yesterday and sad. He is overwhelmed that he has so much more time left in the hospital and is having a hard time filling his days. he is worried about getting an infection. He has had no symptoms. Objective Data Date Time Temp Pulse Resp B/P Pulse Ox O2 Delivery O2 Flow Rate FiO2 10/20/16 11:39 97.1 79 16 140/86 99 10/20/16 08:00 98.0 85 16 143/86 95 10/20/16 05:00 97.7 86 18 148/92 95 10/20/16 00:00 96.6 83 18 163/99 95 10/19/16 20:00 97.3 84 18 152/96 94 10/19/16 17:00 98.3 80 18 161/92 98 10/20/16 10/20/16 10/20/16 07:00 15:00 23:00 Intake Total 720 ml Balance 720 ml Result Diagram: 10/20/16 0430 10/20/16 0430 Laboratory Results Laboratory Tests Test 10/20/16 10/20/16 04:30 10:10 White Blood Count 0.0 TH/MM3 Red Blood Count 2.67 MIL/MM3 Hemoglobin 7.5 GM/DL Hematocrit 21.4 % Mean Corpuscular Volume 80.2 FL Mean Corpuscular Hemoglobin 28.1 PG Mean Corpuscular Hemoglobin 35.0 % Concent Red Cell Distribution Width 13.5 % Platelet Count 15 TH/MM3 Mean Platelet Volume 7.4 FL Neutrophils (%) (Auto) % Lymphocytes (%) (Auto) % Monocytes (%) (Auto) % Eosinophils (%) (Auto) % Basophils (%) (Auto) % Neutrophils # (Auto) TH/MM3 Lymphocytes # (Auto) TH/MM3 Monocytes # (Auto) TH/MM3 Eosinophils # (Auto) TH/MM3 Basophils # (Auto) TH/MM3 CBC Comment AUTO DIFF Differential Total Cells 3 Counted Neutrophils % (Manual) 33 % Lymphocytes % 33 % Eosinophils % 33 % Neutrophils # (Manual) 0.0 TH/MM3 Differential Comment FINAL DIFF MANUAL Platelet Estimate RARE Platelet Morphology Comment NORMAL Red Cell Morphology Comment NORMAL Sodium Level 137 MEQ/L Potassium Level 3.8 MEQ/L Chloride Level 99 MEQ/L Carbon Dioxide Level 31.8 MEQ/L Anion Gap 6 MEQ/L Blood Urea Nitrogen 11 MG/DL Creatinine 0.43 MG/DL Estimat Glomerular Filtration 211 ML/MIN Rate Random Glucose 235 MG/DL Calcium Level 8.2 MG/DL Blood Type O POSITIVE Antibody Screen NEGATIVE Crossmatch Irradiated/Leukocyte-Reduced RBC Blood Bank Comment Administered Medications Medications (Trade) Dose Ordered Sig/Génesis Route PRN Reason Start Time Stop Time Status Last Admin Dose Admin Acetaminophen (Tylenol) 650 mg Q4H PRN PO TEMP> 100.5F 09/25/16 08:45 10/10/16 21:16 Sodium Chloride (NS Flush) 5 ml UNSCH PRN IVF SEE PROTOCOL 09/25/16 08:45 10/20/16 04:29 Sertraline HCl (Zoloft) 50 mg DAILY PO 09/26/16 09:00 10/20/16 10:02 Alteplase, Recombinant 2 mg 2 mg UNSCH PRN IVF SEE LABEL COMMENTS 09/25/16 10:15 10/10/16 09:09 Ondansetron HCl/ Dextrose (Zofran Inj/D5W Inj) 54 ml @ 216 mls/hr Q8H PRN IV PUSH NAUSEA OR VOMITING 09/25/16 10:30 09/27/16 02:13 Docusate Sodium (Colace) 100 mg TID PO 09/25/16 18:00 10/19/16 13:32 Fluconazole (Diflucan) 200 mg DAILY PO 09/27/16 13:00 10/20/16 10:02 Acetaminophen (Tylenol) 650 mg Q4H PRN PO FOR BLOOD PRODUCTS 09/30/16 22:00 10/20/16 11:41 Diphenhydramine HCl 25 mg 25 mg Q4H PRN PO FOR BLOOD PRODUCTS 09/30/16 22:00 10/20/16 11:41 Piperacillin Sod/ Tazobactam Sod (Zosyn 3.375 Gm Premix) 50 ml @ 100 mls/hr Q6H IV 10/13/16 16:00 10/20/16 10:02 Atenolol (Tenormin) 100 mg HS PO 10/14/16 21:00 10/19/16 22:06 Amlodipine Besylate (Norvasc) 5 mg DAILY PO 10/15/16 09:00 10/20/16 10:03 Lisinopril 10 mg 10 mg DAILY PO 10/15/16 09:00 10/20/16 10:03 Sodium Chloride (NS 250 ml Inj) 250 ml @ 15 mls/hr ONCE ONCE IV 10/20/16 08:00 10/21/16 00:39 10/20/16 11:42 Objective Remarks GENERAL: Middle aged male, sitting up on side of bed. well groomed and well kept. appropriate affect. SKIN: Warm and dry. port site clean. HEAD: Normocephalic. EYES: No injection or drainage. NECK: Supple, trachea midline. CARDIOVASCULAR: Regular rate and rhythm RESPIRATORY: Breath sounds equal bilaterally. No accessory muscle use. GASTROINTESTINAL: Abdomen soft, non-tender, nondistended. EXTREMITIES: No cyanosis or edema. NEUROLOGICAL: aox3. moving all extremities. no obvious focal deficit. Assessment/Plan Problem List: (1) AML (acute myeloid leukemia) Status: Acute Plan: 10/20: D25/6. 1 unit platelets and pRBC. stop IVF. wean Adderall 10/19: D24/5 1 unit platelets. last day of chemotherapy 10/18: D23/4. give 2 units pRBC today. monitor for fever 10/17: D22/3. continue CLAG-M. no fever. 10/16: D21/2 Pt tolerated chemo well yesterday. No fevers. Counts OK. No headache. Continue chemo. Monitor counts, fevers. 10/15 D20/1 start second cycle of CLAG-M today. D/W side effects and increase morbidity and mortality with the second cycle. He agreed . I will be OOT . Dr Newell will see him till thursday. 10/14: D19. patient started to receive Clarabine but the pump malfunction causing the chemo to spill on the floor. the chemo is being STAT ordered again and will arrive tomorrow morning. 10/13: bone marrow flow shows 70% blasts. d/w patient, repeating induction with CLAG-M chemotherapy or enrolling in a clinical trial. The patient would like to try a second induction with CLAG-M. will give Neupogen today and start tomorrow. 10/12: Mildly tachycardic today in the 110's, but no fever. PRBC x 2 ordered today. OBSTETRICS NURSE PRACTITIONER replacing potassium per protocol for level of 3.2. Will monitor blood counts, heart rate. Plan for repeat BMB on this upcoming week. 10/11: Spiked a fever this morning to 101.8. Will order blood cultures x 2, check UA. No longer tachycardic. Continue IV Abx. Transfuse 1 unit platelets today. 10/10: afebrile today. tolerating blood and platelet transfusions. will keep in ICU another night as he remains tachycardic. 10/09: bone marrow biopsy today. 1 unit platelets, 2 units pRBC. spiked fever 103F. cefepime started. spoke with ID, who advised me to start Daptomycin and Micafungin. transferred to ICU after becoming tachy in 140s 10/08: day 13. 1 unit platelets. bone marrow biopsy tomorrow. 10/07: flow cytometry results returned showing NPM1 + and FLT3 +. I obtained the original pathology again from to double check and the original FLT3 was NEGATIVE. NPM1 mutation was detected 43.4%, KIT mutation not detected. 46XY 10/06: 2 units pRBC today. plan to do bone marrow biopsy . 10/05: 1 unit platelets today 10/04: D9. no fever. 10/03: D8. no transfusion. monitor for fever 10/02: Will give 1 unit pRBC's, platelets today. Plan for repeat BMB on 10/10. 10/01: Finished chemotherapy yesterday. Tolerated well. 1 unit irradiated PRBC's to be transfused today. Continue to closely monitor blood counts. 09/30: D5. last day of chemotherapy. will give 1 unit platelets. 09/29: D4. continue chemotherapy. no transfusion. 09/28: D3. 09/27: D2 09/26: Start on CLAG-M chemotherapy for relapsed AML. Received Neupogen yesterday. He spiked a fever this afternoon of 101.3. BC, UA, and CXR ordered. Will start pt on Cefepime. Await BC results. --On 09/18 it was noted that he had a white count at 11k and a platelet count of 76k. Blasts were at 38%. He was brought in to the clinic on 09/24 for a bone marrow biopsy. A CBC was done and showed a white count of 63.7, Hgb 12.2, and platelet count was 33K. The blasts were at 73%. Decision was made at that time to admit for salvage chemo. History: 11/04: AML Diagnosis made. 46XY, +NPM1 mutation detected, FLT3 negative-- indicates favorable prognosis. 11/05-11/28: Initial induction with MELL-C and idarubicin (7+3). STAT Leukapheresis due to leukostasis. On D25, repeat bone marrow showed residual leukemia. 12/06-12/27: Re-induction with FLANG chemotherapy. Repeat bone marrow biopsy negative for residual AML. Patient in Complete Remission 01/06-01/10: C1 consolidation chemotherapy with Mell-C. 02/17-02/21: C2 consolidation chemotherapy with MELL-C. 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 (6) Constipation Status: Acute Plan: --on Colace schedule Assessment 46 y/o male admitted for salvage chemotherapy for relapsed AML. Attending Statement The exam, history, and the medical decision-making described in the above note were completed with the assistance of the mid-level provider. I reviewed and agree with the findings presented. I attest that I had a [id number] encounter with the patient on the same day, and personally performed and documented my assessment and findings in the medical record. c/o loose BM x 3-4 no more heart burn. completed second cycle chemo last night. d/w pt and . d/w RN Problem Qualifiers (1) Diabetes: Qualified Code: E11.9 - Type 2 diabetes mellitus without complication, without long-term current use of insulin (2) Fever: Qualified Code: R50.9 - Fever, unspecified fever cause (3) Constipation: Qualified Code: K59.00 - Constipation, unspecified constipation type Janet Holm Oct 20, 2016 12:14 Alexandra Olea MD Oct 20, 2016 19:07
[2016-10-20] MEDS: DEXTROAMPHETAMINE/AMPHETAMINE XR 10 MG CAP PO SCH (16:38)
[2016-10-20 21:10] LABS: MEAN CORPUSCULAR HGB CONC 36.3 % (32.0-36.0)
[2016-10-20] MEDS: ATENOLOL 100 MG TAB PO SCH (21:59)
[2016-10-21] VITALS (9 sets, daily range): BP systolic 121–156; BP diastolic 72–97; PULSE 76–84; RESP 16–20; TEMP 96.5–97.6; O2SAT 92–99
[2016-10-21] MEDS: DIAZEPAM 5 MG TAB PO PRN (01:48)
[2016-10-21] MEDS: PIPERACIL-TAZO 3.375 GM PREMIX 50 ML IV SCH ×2 (04:14→10:27)
[2016-10-21 04:50] LABS: HEMATOCRIT 21.7 % (39.0-51.0); MEAN CELL VOLUME 80.4 FL (80.0-100.0); MEAN CORPUSCULAR HEMOGLOBIN 29.2 PG (27.0-34.0); RED CELL DISTRIBUTION WIDTH 13.8 % (11.6-17.2)
[2016-10-21 05:00] LABS: HEMO FLAGS AUTO DIFF
[2016-10-21 05:02] LABS: ALT (GPT) 14 U/L (12-78); ANION GAP 7 MEQ/L (5-15); AST (GOT) 7 U/L (15-37); BICARBONATE 31.4 MEQ/L (21.0-32.0); BLOOD UREA NITROGEN 13 MG/DL (7-18); CHLORIDE 102 MEQ/L (98-107); GLOMERULAR FILTRATION RATE 170 ML/MIN (>89); POTASSIUM 3.3 MEQ/L (3.5-5.1); SODIUM (NA) 140 MEQ/L (136-145)
[2016-10-21 05:04] LABS: ALKALINE PHOSPHATASE 90 U/L (45-117); PLATELET COUNT 19 TH/MM3 (150-450); TOTAL BILIRUBIN ADULT 0.8 MG/DL (0.2-1.0)
[2016-10-21 07:58] LABS: POLYS (SEG NEUTROPHILS) 25 % (16-70); WBC DIFF SAMPLE 4
[2016-10-21 08:00] LABS: PLATELET ESTIMATE SMEAR RARE (NORMAL); PLATELET MORPHOLOGY NORMAL (NORMAL); SCAN/DIFF FINAL DIFF MANUAL
--- NOTE | 2016-10-21 08:29 | PD.ONC.PN ---
Subjective Subjective Remarks Afebrile overnight. Patient noticed a "rattling" in his chest since yesterday afternoon. He has had no cough. He also reports burning with bowel movement and yellow stool, but no diarrhea. He states anytime he eats, he has to have a bowel movement very shortly thereafter. Objective Data Date Time Temp Pulse Resp B/P Pulse Ox O2 Delivery O2 Flow Rate FiO2 10/21/16 05:00 97.5 76 18 134/85 92 10/21/16 00:00 97.0 78 18 126/75 94 10/20/16 20:00 97.9 80 17 158/98 91 10/20/16 16:39 97.4 84 20 156/96 96 10/20/16 13:43 97.0 85 18 142/89 95 10/20/16 12:00 97.1 81 16 151/93 95 10/20/16 11:39 97.1 79 16 140/86 99 Result Diagram: 10/21/16 0345 10/21/16 0345 Laboratory Results Laboratory Tests Test 10/20/16 10/21/16 10:10 03:45 Blood Type O POSITIVE Antibody Screen NEGATIVE Crossmatch Irradiated/Leukocyte-Reduced RBC Blood Bank Comment White Blood Count 0.0 TH/MM3 Red Blood Count 2.70 MIL/MM3 Hemoglobin 7.9 GM/DL Hematocrit 21.7 % Mean Corpuscular Volume 80.4 FL Mean Corpuscular Hemoglobin 29.2 PG Mean Corpuscular Hemoglobin 36.3 % Concent Red Cell Distribution Width 13.8 % Platelet Count 19 TH/MM3 Mean Platelet Volume 8.0 FL Neutrophils (%) (Auto) % Lymphocytes (%) (Auto) % Monocytes (%) (Auto) % Eosinophils (%) (Auto) % Basophils (%) (Auto) % Neutrophils # (Auto) TH/MM3 Lymphocytes # (Auto) TH/MM3 Monocytes # (Auto) TH/MM3 Eosinophils # (Auto) TH/MM3 Basophils # (Auto) TH/MM3 CBC Comment AUTO DIFF Differential Total Cells 4 Counted Neutrophils % (Manual) 25 % Lymphocytes % 75 % Neutrophils # (Manual) 0.0 TH/MM3 Differential Comment FINAL DIFF MANUAL Platelet Estimate RARE Platelet Morphology Comment NORMAL Red Cell Morphology Comment NORMAL Sodium Level 140 MEQ/L Potassium Level 3.3 MEQ/L Chloride Level 102 MEQ/L Carbon Dioxide Level 31.4 MEQ/L Anion Gap 7 MEQ/L Blood Urea Nitrogen 13 MG/DL Creatinine 0.52 MG/DL Estimat Glomerular Filtration 170 ML/MIN Rate Random Glucose 210 MG/DL Calcium Level 7.8 MG/DL Total Bilirubin 0.8 MG/DL Aspartate Amino Transf 7 U/L (AST/SGOT) Alanine Aminotransferase 14 U/L (ALT/SGPT) Alkaline Phosphatase 90 U/L Total Protein 5.4 GM/DL Albumin 2.7 GM/DL Administered Medications Medications (Trade) Dose Ordered Sig/Génesis Route PRN Reason Start Time Stop Time Status Last Admin Dose Admin Acetaminophen (Tylenol) 650 mg Q4H PRN PO TEMP> 100.5F 09/25/16 08:45 10/10/16 21:16 Sodium Chloride (NS Flush) 5 ml UNSCH PRN IVF SEE PROTOCOL 09/25/16 08:45 10/20/16 23:16 Heparin Sodium (Porcine) (Heparin Central Flush) 250 units UNSCH PRN IVF SEE PROTOCOL 09/25/16 08:45 10/21/16 05:04 Sertraline HCl (Zoloft) 50 mg DAILY PO 09/26/16 09:00 10/20/16 10:02 Alteplase, Recombinant 2 mg 2 mg UNSCH PRN IVF SEE LABEL COMMENTS 09/25/16 10:15 10/10/16 09:09 Ondansetron HCl/ Dextrose (Zofran Inj/D5W Inj) 54 ml @ 216 mls/hr Q8H PRN IV PUSH NAUSEA OR VOMITING 09/25/16 10:30 09/27/16 02:13 Docusate Sodium (Colace) 100 mg TID PO 09/25/16 18:00 10/19/16 13:32 Fluconazole (Diflucan) 200 mg DAILY PO 09/27/16 13:00 10/20/16 10:02 Acetaminophen (Tylenol) 650 mg Q4H PRN PO FOR BLOOD PRODUCTS 09/30/16 22:00 10/20/16 11:41 Diphenhydramine HCl 25 mg 25 mg Q4H PRN PO FOR BLOOD PRODUCTS 09/30/16 22:00 10/20/16 11:41 Piperacillin Sod/ Tazobactam Sod (Zosyn 3.375 Gm Premix) 50 ml @ 100 mls/hr Q6H IV 10/13/16 16:00 10/21/16 04:14 Atenolol (Tenormin) 100 mg HS PO 10/14/16 21:00 10/20/16 21:59 Amlodipine Besylate (Norvasc) 5 mg DAILY PO 10/15/16 09:00 10/20/16 10:03 Lisinopril (Prinivil) 10 mg DAILY PO 10/15/16 09:00 10/20/16 10:03 Diazepam (Valium) 5 mg Q12H PRN PO MILD ANXIETY 10/20/16 11:15 10/21/16 01:48 Oxycodone HCl (Roxicodone) 5 mg DAILY PRN PO pain 10/20/16 11:15 10/20/16 22:00 Objective Remarks GENERAL: Middle aged male, sitting up in bed in nad. at bedside SKIN: Warm and dry. HEAD: Normocephalic. EYES: No injection or drainage. NECK: Supple, trachea midline. CARDIOVASCULAR: Regular rate and rhythm RESPIRATORY: occasional wheeze. GASTROINTESTINAL: Abdomen soft, non-tender, nondistended. EXTREMITIES: No cyanosis NEUROLOGICAL: No obvious focal deficit. Awake, alert, and oriented x3. Assessment/Plan Problem List: (1) AML (acute myeloid leukemia) Status: Acute Plan: 10/21: D26/7: 1 unit pRBC. CXR 10/20: D25/6. 1 unit platelets and pRBC. stop IVF. wean Adderall 10/19: D24/5 1 unit platelets. last day of chemotherapy 10/18: D23/4. give 2 units pRBC today. monitor for fever 10/17: D22/3. continue CLAG-M. no fever. 10/16: D21/2 Pt tolerated chemo well yesterday. No fevers. Counts OK. No headache. Continue chemo. Monitor counts, fevers. 10/15 D20/1 start second cycle of CLAG-M today. D/W side effects and increase morbidity and mortality with the second cycle. He agreed . I will be OOT . Dr Newell will see him till thursday. 10/14: D19. patient started to receive Clarabine but the pump malfunction causing the chemo to spill on the floor. the chemo is being STAT ordered again and will arrive tomorrow morning. 10/13: bone marrow flow shows 70% blasts. d/w patient, repeating induction with CLAG-M chemotherapy or enrolling in a clinical trial. The patient would like to try a second induction with CLAG-M. will give Neupogen today and start tomorrow. 10/12: Mildly tachycardic today in the 110's, but no fever. PRBC x 2 ordered today. WRAPPER DIPPER replacing potassium per protocol for level of 3.2. Will monitor blood counts, heart rate. Plan for repeat BMB on this upcoming week. 10/11: Spiked a fever this morning to 101.8. Will order blood cultures x 2, check UA. No longer tachycardic. Continue IV Abx. Transfuse 1 unit platelets today. 10/10: afebrile today. tolerating blood and platelet transfusions. will keep in ICU another night as he remains tachycardic. 10/09: bone marrow biopsy today. 1 unit platelets, 2 units pRBC. spiked fever 103F. cefepime started. spoke with ID, who advised me to start Daptomycin and Micafungin. transferred to ICU after becoming tachy in 140s 10/08: day 13. 1 unit platelets. bone marrow biopsy tomorrow. 10/07: flow cytometry results returned showing NPM1 + and FLT3 +. I obtained the original pathology again from to double check and the original FLT3 was NEGATIVE. NPM1 mutation was detected 43.4%, KIT mutation not detected. 46XY 10/06: 2 units pRBC today. plan to do bone marrow biopsy AM. 2: 1 unit platelets today 10/04: D9. no fever. 10/03: D8. no transfusion. monitor for fever 10/02: Will give 1 unit pRBC's, platelets today. Plan for repeat BMB on 10/10. 10/01: Finished chemotherapy yesterday. Tolerated well. 1 unit irradiated PRBC's to be transfused today. Continue to closely monitor blood counts. 09/30: D5. last day of chemotherapy. will give 1 unit platelets. 09/29: D4. continue chemotherapy. no transfusion. 09/28: D3. 09/27: D2 09/26: Start on CLAG-M chemotherapy for relapsed AML. Received Neupogen yesterday. He spiked a fever this afternoon of 101.3. BC, UA, and CXR ordered. Will start pt on Cefepime. Await BC results. --On 09/18 it was noted that he had a white count at 11k and a platelet count of 76k. Blasts were at 38%. He was brought in to the clinic on 09/24 for a bone marrow biopsy. A CBC was done and showed a white count of 63.7, Hgb 12.2, and platelet count was 33K. The blasts were at 73%. Decision was made at that time to admit for salvage chemo. History: 11/04: AML Diagnosis made. 46XY, +NPM1 mutation detected, FLT3 negative-- indicates favorable prognosis. 11/05-11/28: Initial induction with MELL-C and idarubicin (7+3). STAT Leukapheresis due to leukostasis. On D2, repeat bone marrow showed residual leukemia. 12/06-12/27: Re-induction with FLANG chemotherapy. Repeat bone marrow biopsy negative for residual AML. Patient in Complete Remission 01/06-01/10: C1 consolidation chemotherapy with Mell-C. 02/17-02/21: C2 consolidation chemotherapy with MELL-C. 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 (6) Constipation Status: Acute Plan: --on Colace schedule Assessment 46 y/o male admitted for salvage chemotherapy for relapsed AML. Attending Statement does not like hosp food. diarrheoa await BM recovery. continue same plan Problem Qualifiers (1) Diabetes: Qualified Code: E11.9 - Type 2 diabetes mellitus without complication, without long-term current use of insulin (2) Fever: Qualified Code: R50.9 - Fever, unspecified fever cause (3) Constipation: Qualified Code: K59.00 - Constipation, unspecified constipation type Janet Holm Oct 21, 2016 08:29 Alexandra Olea MD Oct 21, 2016 20:57
[2016-10-21] MEDS ORDERED: SODIUM CHLOR 0.9% 250 ML INJ 250 ML IV ONE (08:30)
[2016-10-21] MEDS: DEXTROAMPHETAMINE/AMPHETAMINE XR 10 MG CAP PO SCH (09:21)
[2016-10-21] MEDS: SERTRALINE HCL 50 MG TAB PO SCH (09:21)
[2016-10-21] MEDS: FLUCONAZOLE 200 MG TAB PO SCH (09:21)
[2016-10-21] MEDS: LISINOPRIL 10 MG TAB PO SCH (09:21)
[2016-10-21] MEDS: amLODIPine BESYLATE 5 MG TAB PO SCH (09:21)
[2016-10-21] MEDS: DOCUSATE SODIUM 100 MG CAP PO SCH ×3 (09:22→15:19)
[2016-10-21] MEDS: INSULIN ASPART SUPPLEMENTAL SCALE SQ SCH ×4 (09:29→20:37)
--- NOTE | 2016-10-21 10:12 | RADRPT ---
EXAM DATE/TIME: 10/21/2016 08:48 [facility] COMPARISON: CHEST PA & LAT, May 14, 2016, 14:25. INDICATIONS : Cough, chest congestion. MEDICAL HISTORY : Hypertension. Diabetes mellitus type II. Leukemia. Chemotherapy SURGICAL HISTORY : Infusaport ENCOUNTER: Subsequent ACUITY: 3 days PAIN SCORE: 0/10 LOCATION: Bilateral chest FINDINGS: The heart and mediastinal structures are normal. The pulmonary vascular pattern is normal. The lung s are clear. A right internal jugular Ljuane-B-Rgoq has its tip in good position in the superior lyssa a cava. No pneumothorax is noted. CONCLUSION: 1. No acute cardiopulmonary disease. Rashid Carlin MD on October 21, 2016 at 9:51 Board Certified Radiologist. This report was verified electronically.
[2016-10-21] MEDS: ACETAMINOPHEN 325 MG TAB PO PRN (10:48)
[2016-10-21] MEDS: diphenhydrAMINE HCL 25 MG CAP PO PRN (10:48)
[2016-10-21] MEDS: CEFEPIME 2000 MG/NS 100 ML IV SCH ×4 (10:54→18:12)
[2016-10-21] MEDS ORDERED: RESP: ALBUTEROL 2.5 MG/IPRATROPIUM 0.5 MG NEB (SCH) NEB ONE (11:15)
[2016-10-21] MEDS ORDERED: FUROSEMIDE 20 MG/2 ML VIAL IV PUSH ONE (11:15)
[2016-10-21] MEDS: METRONIDAZOLE 500 MG/100 ML ISONTONIC SOLN IV SCH ×2 (14:56→22:37)
[2016-10-21] MEDS: POTASSIUM CHLORIDE 10 MEQ CONTROLLED RELEASE TAB PO SCH ×2 (14:56→20:39)
[2016-10-21 18:49] LABS: C. DIFF EPI 027 PRESUMPTIVE NEGATIVE (NEGATIVE); C. DIFF TOXIN PCR NEGATIVE (NEGATIVE)
[2016-10-21] MEDS: SODIUM CHLORIDE 0.9% FLUSH 10 ML FLUSH IVF PRN ×2 (19:34→23:43)
[2016-10-21] MEDS: ATENOLOL 100 MG TAB PO SCH (20:38)
--- NOTE | 2016-10-21 23:45 | HHI.IDPN ---
Subjective Subjective Remarks delaeyd entry pt was seen today around 1730 afebrile No headache Started on chemotherapy Pt reports liquid diarrhea, 3-4 BMs today RN told me today that pt resued to jae zoyn because hisdiarrhea happens right after zoyn adminitration Zosyn was staooped Pt was started on cefepime, flagyl Antibiotics cefepime, flagyl Allergies: Coded Allergies: Vancomycin (Verified Allergy, Severe, Rash, 04/28/16) Objective . Vital Signs Date Time Temp Pulse Resp B/P Pulse Ox O2 Delivery O2 Flow Rate FiO2 10/21/16 20:00 97.6 81 17 135/88 95 10/21/16 16:00 97.1 78 16 147/90 95 10/21/16 12:15 96.7 84 20 156/94 94 10/21/16 12:00 96.5 80 16 148/97 94 10/21/16 11:56 96.5 80 16 148/97 94 10/21/16 08:40 96.8 84 16 121/72 99 10/21/16 05:00 97.5 76 18 134/85 92 10/21/16 00:00 97.0 78 18 126/75 94 10/20/16 10/20/16 10/21/16 15:00 23:00 07:00 Intake Total 720 ml 60 ml 60 ml Balance 720 ml 60 ml 60 ml Intake Oral 720 ml IV Total 60 ml 60 ml # Voids 3 2 . Laboratory Tests Test 10/20/16 10/21/16 04:30 03:45 White Blood Count 0.0 TH/MM3 0.0 TH/MM3 Red Blood Count 2.67 MIL/MM3 2.70 MIL/MM3 Hemoglobin 7.5 GM/DL 7.9 GM/DL Hematocrit 21.4 % 21.7 % Mean Corpuscular Volume 80.2 FL 80.4 FL Mean Corpuscular Hemoglobin 28.1 PG 29.2 PG Mean Corpuscular Hemoglobin 35.0 % 36.3 % Concent Red Cell Distribution Width 13.5 % 13.8 % Platelet Count 15 TH/MM3 19 TH/MM3 Mean Platelet Volume 7.4 FL 8.0 FL Neutrophils (%) (Auto) % % Lymphocytes (%) (Auto) % % Monocytes (%) (Auto) % % Eosinophils (%) (Auto) % % Basophils (%) (Auto) % % Neutrophils # (Auto) TH/MM3 TH/MM3 Lymphocytes # (Auto) TH/MM3 TH/MM3 Monocytes # (Auto) TH/MM3 TH/MM3 Eosinophils # (Auto) TH/MM3 TH/MM3 Basophils # (Auto) TH/MM3 TH/MM3 CBC Comment AUTO DIFF AUTO DIFF Differential Total Cells 3 4 Counted Neutrophils % (Manual) 33 % 25 % Lymphocytes % 33 % 75 % Eosinophils % 33 % Neutrophils # (Manual) 0.0 TH/MM3 0.0 TH/MM3 Differential Comment FINAL DIFF FINAL DIFF MANUAL MANUAL Platelet Estimate RARE RARE Platelet Morphology Comment NORMAL NORMAL Red Cell Morphology Comment NORMAL NORMAL Laboratory Tests Test 10/20/16 10/21/16 04:30 03:45 Sodium Level 137 MEQ/L 140 MEQ/L Potassium Level 3.8 MEQ/L 3.3 MEQ/L Chloride Level 99 MEQ/L 102 MEQ/L Carbon Dioxide Level 31.8 MEQ/L 31.4 MEQ/L Anion Gap 6 MEQ/L 7 MEQ/L Blood Urea Nitrogen 11 MG/DL 13 MG/DL Creatinine 0.43 MG/DL 0.52 MG/DL Estimat Glomerular Filtration 211 ML/MIN 170 ML/MIN Rate Random Glucose 235 MG/DL 210 MG/DL Calcium Level 8.2 MG/DL 7.8 MG/DL Total Bilirubin 0.8 MG/DL Aspartate Amino Transf 7 U/L (AST/SGOT) Alanine Aminotransferase 14 U/L (ALT/SGPT) Alkaline Phosphatase 90 U/L Total Protein 5.4 GM/DL Albumin 2.7 GM/DL Imaging Last Impressions Chest X-Ray 10/21/16 0000 Signed Impressions: Service Date/Time: Friday, October 21, 2016 08:48 - CONCLUSION: 1. No acute cardiopulmonary disease. Rashid Carlin MD Head CT 10/14/16 0000 Signed Impressions: Service Date/Time: Friday, October 14, 2016 09:52 - CONCLUSION: 1. No acute intracranial abnormality is identified. 2. Minimal mucoperiosteal thickening in the left maxillary and ethmoid sinus. Eric Collazo MD Physical Exam CONSTITUTIONAL/GENERAL: This is an adequately nourished patient, in no apparent distress. TUBES/LINES/DRAINS: PORT in R chest - site OK SKIN: No jaundice, scatered petechia BLE Skin temperature appropriate. Not diaphoretic. EYES: Pupils equal and round and reactive. Extraocular motions intact. No scleral icterus. No injection or drainage. Fundi not examined. CARDIOVASCULAR: Regular rate and rhythm without murmurs, gallops, or rubs. RESPIRATORY/CHEST: Symmetric, unlabored respirations. Clear to auscultation. Breath sounds equal bilaterally. No wheezes, rales, or rhonchi. GASTROINTESTINAL: Abdomen soft, non-tender, mildly distended. No hepato- splenomegaly, or palpable masses. No guarding. Bowel sounds present. MUSCULOSKELETAL: Extremities without clubbing, cyanosis, or edema. NEUROLOGICAL: Awake and alert. Motor and sensory grossly within normal limits. Follows commands. Cognitively sharp. Moves all extremities. PSYCHIATRIC: No obvious anxiety/depression. 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
[2016-10-22] VITALS (8 sets, daily range): BP systolic 127–155; BP diastolic 87–98; PULSE 66–86; RESP 15–18; TEMP 96.8–98.6; O2SAT 88–97
[2016-10-22] MEDS: DIAZEPAM 10 MG TAB PO PRN ×2 (01:11→23:06)
[2016-10-22] MEDS: CEFEPIME 2000 MG/NS 100 ML IV SCH ×6 (02:56→18:14)
[2016-10-22 03:11] LABS: HEMATOCRIT 25.1 % (39.0-51.0); MEAN CELL VOLUME 81.8 FL (80.0-100.0); MEAN CORPUSCULAR HGB CONC 35.5 % (32.0-36.0); RED BLOOD COUNT 3.06 MIL/MM3 (4.50-5.90)
[2016-10-22 03:26] LABS: HEMO FLAGS AUTO DIFF; PLATELET COUNT 17 TH/MM3 (150-450)
[2016-10-22 03:37] LABS: BICARBONATE 31.6 MEQ/L (21.0-32.0); POTASSIUM 3.6 MEQ/L (3.5-5.1)
[2016-10-22 05:10] LABS: EOSINOPHILS 20 % (0-4); PLATELET ESTIMATE SMEAR LOW (NORMAL); PLATELET MORPHOLOGY NORMAL (NORMAL); SCAN/DIFF FINAL DIFF MANUAL; WBC DIFF SAMPLE 5
[2016-10-22] MEDS: METRONIDAZOLE 500 MG/100 ML ISONTONIC SOLN IV SCH ×3 (05:49→21:13)
[2016-10-22] MEDS: INSULIN ASPART SUPPLEMENTAL SCALE SQ SCH ×4 (07:00→21:17)
[2016-10-22] MEDS ORDERED: ACETAMINOPHEN 325 MG TAB PO PRN (08:45)
[2016-10-22] MEDS ORDERED: diphenhydrAMINE HCL 25 MG CAP PO PRN (08:45)
[2016-10-22] MEDS ORDERED: SODIUM CHLOR 0.9% 250 ML INJ 250 ML IV ONE (08:45)
[2016-10-22] MEDS: LISINOPRIL 10 MG TAB PO SCH (09:56)
[2016-10-22] MEDS: FLUCONAZOLE 200 MG TAB PO SCH (09:56)
[2016-10-22] MEDS: DEXTROAMPHETAMINE/AMPHETAMINE XR 5 MG CAP PO SCH (09:56)
[2016-10-22] MEDS: SERTRALINE HCL 50 MG TAB PO SCH (09:57)
[2016-10-22] MEDS: amLODIPine BESYLATE 5 MG TAB PO SCH (09:57)
[2016-10-22] MEDS: LOPERAMIDE HCL 2 MG CAP PO PRN (10:02)
[2016-10-22] MEDS: DOCUSATE SODIUM 100 MG CAP PO SCH ×3 (10:08→18:00)
--- NOTE | 2016-10-22 10:59 | PD.ONC.PN ---
Subjective Subjective Remarks Afebrile overnight. Patient continuing to have multiple loose stools. No cough. No dizziness. Had some oozing/bleeding from port last night. Objective Data Date Time Temp Pulse Resp B/P Pulse Ox O2 Delivery O2 Flow Rate FiO2 10/22/16 09:00 98.5 70 16 154/94 91 10/22/16 04:20 97.3 78 18 127/89 93 10/22/16 00:00 97.7 80 18 149/91 92 10/21/16 20:00 97.6 81 17 135/88 95 10/21/16 16:00 97.1 78 16 147/90 95 10/21/16 12:15 96.7 84 20 156/94 94 10/21/16 12:00 96.5 80 16 148/97 94 10/21/16 11:56 96.5 80 16 148/97 94 10/22/16 10/22/16 10/22/16 07:00 15:00 23:00 Intake Total 570 ml Balance 570 ml Result Diagram: 10/22/16 0255 10/22/16 0255 Laboratory Results Laboratory Tests Test 10/21/16 10/22/16 10/22/16 14:50 02:55 08:54 Stool C. difficile Toxin (PCR) NEGATIVE Stl C. difficile Toxin PRESUMPTIVE Epiderm 027 NEGATIVE White Blood Count 0.0 TH/MM3 Red Blood Count 3.06 MIL/MM3 Hemoglobin 8.9 GM/DL Hematocrit 25.1 % Mean Corpuscular Volume 81.8 FL Mean Corpuscular Hemoglobin 29.0 PG Mean Corpuscular Hemoglobin 35.5 % Concent Red Cell Distribution Width 14.0 % Platelet Count 17 TH/MM3 Mean Platelet Volume 7.9 FL Neutrophils (%) (Auto) % Lymphocytes (%) (Auto) % Monocytes (%) (Auto) % Eosinophils (%) (Auto) % Basophils (%) (Auto) % Neutrophils # (Auto) TH/MM3 Lymphocytes # (Auto) TH/MM3 Monocytes # (Auto) TH/MM3 Eosinophils # (Auto) TH/MM3 Basophils # (Auto) TH/MM3 CBC Comment AUTO DIFF Differential Total Cells 5 Counted Lymphocytes % 80 % Eosinophils % 20 % Differential Comment FINAL DIFF MANUAL Platelet Estimate LOW Platelet Morphology Comment NORMAL Red Cell Morphology Comment NORMAL Sodium Level 140 MEQ/L Potassium Level 3.6 MEQ/L Chloride Level 101 MEQ/L Carbon Dioxide Level 31.6 MEQ/L Anion Gap 7 MEQ/L Blood Urea Nitrogen 10 MG/DL Creatinine 0.51 MG/DL Estimat Glomerular Filtration 173 ML/MIN Rate Random Glucose 184 MG/DL Calcium Level 8.4 MG/DL Blood Bank Comment Administered Medications Medications (Trade) Dose Ordered Sig/Génesis Route PRN Reason Start Time Stop Time Status Last Admin Dose Admin Acetaminophen (Tylenol) 650 mg Q4H PRN PO TEMP> 100.5F 09/25/16 08:45 10/10/16 21:16 Sodium Chloride (NS Flush) 5 ml UNSCH PRN IVF SEE PROTOCOL 09/25/16 08:45 10/21/16 23:43 Heparin Sodium (Porcine) (Heparin Central Flush) 250 units UNSCH PRN IVF SEE PROTOCOL 09/25/16 08:45 10/21/16 23:43 Sertraline HCl (Zoloft) 50 mg DAILY PO 09/26/16 09:00 10/22/16 09:57 Alteplase, Recombinant 2 mg 2 mg UNSCH PRN IVF SEE LABEL COMMENTS 09/25/16 10:15 10/10/16 09:09 Ondansetron HCl/ Dextrose (Zofran Inj/D5W Inj) 54 ml @ 216 mls/hr Q8H PRN IV PUSH NAUSEA OR VOMITING 09/25/16 10:30 09/27/16 02:13 Docusate Sodium (Colace) 100 mg TID PO 09/25/16 18:00 10/19/16 13:32 Fluconazole (Diflucan) 200 mg DAILY PO 09/27/16 13:00 10/22/16 09:56 Acetaminophen (Tylenol) 650 mg Q4H PRN PO FOR BLOOD PRODUCTS 09/30/16 22:00 10/21/16 10:48 Diphenhydramine HCl (Benadryl) 25 mg Q4H PRN PO FOR BLOOD PRODUCTS 09/30/16 22:00 10/21/16 10:48 Atenolol (Tenormin) 100 mg HS PO 10/14/16 21:00 10/21/16 20:38 Amlodipine Besylate (Norvasc) 5 mg DAILY PO 10/15/16 09:00 10/22/16 09:57 Lisinopril (Prinivil) 10 mg DAILY PO 10/15/16 09:00 10/22/16 09:56 Diazepam (Valium) 5 mg Q12H PRN PO MILD ANXIETY 10/20/16 11:15 10/21/16 01:48 Oxycodone HCl (Roxicodone) 5 mg DAILY PRN PO pain 10/20/16 11:15 10/21/16 22:36 Amphetamine/ Dextroamphetamine (Adderall Xr) 5 mg DAILY PO 10/22/16 09:00 10/24/16 09:01 10/22/16 09:56 Diazepam 10 mg 10 mg HS PRN PO INSOMNIA 10/21/16 08:30 10/22/16 01:11 Cefepime HCl 2000 mg/Sodium Chloride 100 ml @ 200 mls/hr Q8H IV 10/21/16 11:00 10/22/16 02:56 Metronidazole (Flagyl 500 Mg Inj) 100 ml @ 100 mls/hr Q8H IV 10/21/16 14:00 10/22/16 05:49 Loperamide HCl (Imodium) 2 mg UNSCH PRN PO DIARRHEA 10/22/16 09:00 10/22/16 10:02 Objective Remarks GENERAL: Middle aged male, sitting up in bed in nad. at bedside SKIN: Warm and dry. port in place, right chest wall, some old blood around the port site, under bandage. HEAD: Normocephalic. EYES: No injection or drainage. NECK: Supple, trachea midline. CARDIOVASCULAR: Regular rate and rhythm RESPIRATORY: occasional wheeze. GASTROINTESTINAL: Abdomen soft, non-tender, nondistended. EXTREMITIES: No cyanosis NEUROLOGICAL: awake and alert, normal speech. moving extremities. Assessment/Plan Problem List: (1) AML (acute myeloid leukemia) Status: Acute Plan: 10/22: D27/8; 1 unit platelets. continue abx per ID 10/21: D26/7: 1 unit pRBC. CXR 10/20: D25/6. 1 unit platelets and pRBC. stop IVF. wean Adderall 10/19: D24/5 1 unit platelets. last day of chemotherapy 10/18: D23/4. give 2 units pRBC today. monitor for fever 10/17: D22/3. continue CLAG-M. no fever. 10/16: D21/2 Pt tolerated chemo well yesterday. No fevers. Counts OK. No headache. Continue chemo. Monitor counts, fevers. 10/15 D20/1 start second cycle of CLAG-M today. D/W side effects and increase morbidity and mortality with the second cycle. He agreed . I will be OOT . Dr Newell will see him till thursday. 10/14: D19. patient started to receive Clarabine but the pump malfunction causing the chemo to spill on the floor. the chemo is being STAT ordered again and will arrive tomorrow morning. 10/13: bone marrow flow shows 70% blasts. d/w patient, repeating induction with CLAG-M chemotherapy or enrolling in a clinical trial. The patient would like to try a second induction with CLAG-M. will give Neupogen today and start tomorrow. 10/12: Mildly tachycardic today in the 110's, but no fever. PRBC x 2 ordered today. 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 Will monitor blood counts, heart rate. Plan for repeat BMB on this upcoming week. 10/11: Spiked a fever this morning to 101.8. Will order blood cultures x 2, check UA. No longer tachycardic. Continue IV Abx. Transfuse 1 unit platelets today. 10/10: afebrile today. tolerating blood and platelet transfusions. will keep in ICU another night as he remains tachycardic. 10/09: bone marrow biopsy today. 1 unit platelets, 2 units pRBC. spiked fever 103F. cefepime started. spoke with ID, who advised me to start Daptomycin and Micafungin. transferred to ICU after becoming tachy in 140s 10/08: day 13. 1 unit platelets. bone marrow biopsy tomorrow. 10/07: flow cytometry results returned showing NPM1 + and FLT3 +. I obtained the original pathology again from to double check and the original FLT3 was NEGATIVE. NPM1 mutation was detected 43.4%, KIT mutation not detected. 46XY 10/06: 2 units pRBC today. plan to do bone marrow biopsy AM. 2: 1 unit platelets today 10/04: D9. no fever. 10/03: D8. no transfusion. monitor for fever 10/02: Will give 1 unit pRBC's, platelets today. Plan for repeat BMB on 10/10. 10/01: Finished chemotherapy yesterday. Tolerated well. 1 unit irradiated PRBC's to be transfused today. Continue to closely monitor blood counts. 09/30: D5. last day of chemotherapy. will give 1 unit platelets. 09/29: D4. continue chemotherapy. no transfusion. 09/28: D3. 09/27: D2 09/26: Start on CLAG-M chemotherapy for relapsed AML. Received Neupogen yesterday. He spiked a fever this afternoon of 101.3. BC, UA, and CXR ordered. Will start pt on Cefepime. Await BC results. --On 09/18 it was noted that he had a white count at 11k and a platelet count of 76k. Blasts were at 38%. He was brought in to the clinic on 09/24 for a bone marrow biopsy. A CBC was done and showed a white count of 63.7, Hgb 12.2, and platelet count was 33K. The blasts were at 73%. Decision was made at that time to admit for salvage chemo. History: 11/04: AML Diagnosis made. 46XY, +NPM1 mutation detected, FLT3 negative-- indicates favorable prognosis. 11/05-11/28: Initial induction with MELL-C and idarubicin (7+3). STAT Leukapheresis due to leukostasis. On D25, repeat bone marrow showed residual leukemia. 12/06-12/27: Re-induction with FLANG chemotherapy. Repeat bone marrow biopsy negative for residual AML. Patient in Complete Remission 01/06-01/10: C1 consolidation chemotherapy with Mell-C. 02/17-02/21: C2 consolidation chemotherapy with MLEL-C. 03/25-03/30: C3 consolidation chemotherapy with MELL-C 04/28-05/02: C4 consolidation chemo with MELL-C (2) Nausea Status: Acute Plan: likely due to chemotherapy as well as antibiotics --start Marinol 5mg PO BID (3) Diarrhea Status: Acute Plan: --C. diff negative. --imodium PRN (4) Hypertension Status: Acute Plan: --on amlodipine, lisinopril, atenolol (5) Fever Status: Acute Plan: -- last + BC on 10/09 -->+ Fusobacterium species --ID following -- on Zosyn (6) DVT prophylaxis Status: Acute Plan: -- Thrombocytopenia; will hold off on chemical prophylaxis at this time. (7) Diabetes Status: Acute Plan: --on SSI Novolog (8) Depression Status: Acute Plan: --on Zoloft Assessment 46 y/o male admitted for salvage chemotherapy for relapsed AML. Attending Statement loose BM some oozing at port site. check coags plat tx today. await BM recovery. Problem Qualifiers (1) Fever: Qualified Code: R50.9 - Fever, unspecified fever cause (2) Diabetes: Qualified Code: E11.9 - Type 2 diabetes mellitus without complication, without long-term current use of insulin Janet Holm Oct 22, 2016 10:59 Alexandra Olea MD Oct 22, 2016 22:39
[2016-10-22 11:13] LABS: APTT (PATIENT) 28.4 SEC (24.3-30.1); PROTHROMBIN TIME - PATIENT 11.4 SEC (9.8-11.6)
[2016-10-22] MEDS: diphenhydrAMINE HCL 25 MG CAP PO PRN (11:13)
[2016-10-22] MEDS: ACETAMINOPHEN 325 MG TAB PO PRN (11:13)
[2016-10-22] MEDS ORDERED: DRONABINOL 5 MG CAP PO SCH (16:00)
[2016-10-22] MEDS: ATENOLOL 100 MG TAB PO SCH (21:12)
[2016-10-23 04:00] VITALS: BP 153/94; PULSE 78; RESP 18; TEMP 97.4; O2SAT 95
[2016-10-23] MEDS: CEFEPIME 2000 MG/NS 100 ML IV SCH ×6 (04:01→18:33)
[2016-10-23 05:00] LABS: HEMATOCRIT 27.1 % (39.0-51.0); MEAN CELL VOLUME 81.1 FL (80.0-100.0); MEAN CORPUSCULAR HEMOGLOBIN 28.5 PG (27.0-34.0); MEAN CORPUSCULAR HGB CONC 35.1 % (32.0-36.0); PLATELET COUNT 24 TH/MM3 (150-450); RED BLOOD COUNT 3.34 MIL/MM3 (4.50-5.90); RED CELL DISTRIBUTION WIDTH 13.6 % (11.6-17.2)
[2016-10-23 05:06] LABS: HEMO FLAGS AUTO DIFF
[2016-10-23] MEDS: METRONIDAZOLE 500 MG/100 ML ISONTONIC SOLN IV SCH ×3 (05:23→21:44)
[2016-10-23] MEDS: INSULIN ASPART SUPPLEMENTAL SCALE SQ SCH ×4 (05:49→21:40)
[2016-10-23 06:25] LABS: WBC DIFF SAMPLE 1
[2016-10-23 06:26] LABS: PLATELET ESTIMATE SMEAR LOW (NORMAL); PLATELET MORPHOLOGY NORMAL (NORMAL); SCAN/DIFF FINAL DIFF MANUAL
[2016-10-23 08:00] VITALS: BP 159/98; PULSE 88; RESP 16; TEMP 96.5; O2SAT 98
[2016-10-23] MEDS: DOCUSATE SODIUM 100 MG CAP PO SCH ×2 (09:00→11:04)
[2016-10-23] MEDS: LISINOPRIL 10 MG TAB PO SCH (09:56)
[2016-10-23] MEDS: SERTRALINE HCL 50 MG TAB PO SCH (09:56)
[2016-10-23] MEDS: DEXTROAMPHETAMINE/AMPHETAMINE XR 5 MG CAP PO SCH (09:56)
[2016-10-23] MEDS: FLUCONAZOLE 200 MG TAB PO SCH (09:56)
[2016-10-23] MEDS: amLODIPine BESYLATE 5 MG TAB PO SCH (09:56)
--- NOTE | 2016-10-23 10:54 | PD.ONC.PN ---
Subjective Subjective Remarks Afebrile overnight. Patient became hypoxic last night and required O2. O2 was 88% prior to placement on 1L O2, then improved to 95%. This am he is 99% on room air. Denies cough. Objective Data Date Time Temp Pulse Resp B/P Pulse Ox O2 Delivery O2 Flow Rate FiO2 10/23/16 08:00 96.5 88 16 159/98 98 10/23/16 04:00 97.4 78 18 153/94 95 10/22/16 23:00 97.5 86 15 155/98 97 10/22/16 20:00 97.2 86 18 147/87 95 10/22/16 18:00 97.1 80 18 152/92 88 10/22/16 12:40 98.6 67 16 150/96 96 10/22/16 12:21 96.8 66 16 151/94 92 Result Diagram: 10/23/16 0410 10/22/16 0255 Laboratory Results Laboratory Tests Test 10/23/16 04:10 White Blood Count 0.0 TH/MM3 Red Blood Count 3.34 MIL/MM3 Hemoglobin 9.5 GM/DL Hematocrit 27.1 % Mean Corpuscular Volume 81.1 FL Mean Corpuscular Hemoglobin 28.5 PG Mean Corpuscular Hemoglobin 35.1 % Concent Red Cell Distribution Width 13.6 % Platelet Count 24 TH/MM3 Mean Platelet Volume 7.8 FL Neutrophils (%) (Auto) % Lymphocytes (%) (Auto) % Monocytes (%) (Auto) % Eosinophils (%) (Auto) % Basophils (%) (Auto) % Neutrophils # (Auto) TH/MM3 Lymphocytes # (Auto) TH/MM3 Monocytes # (Auto) TH/MM3 Eosinophils # (Auto) TH/MM3 Basophils # (Auto) TH/MM3 CBC Comment AUTO DIFF Differential Total Cells 1 Counted Lymphocytes % 100 % Differential Comment FINAL DIFF MANUAL Platelet Estimate LOW Platelet Morphology Comment NORMAL Administered Medications Medications (Trade) Dose Ordered Sig/Génesis Route PRN Reason Start Time Stop Time Status Last Admin Dose Admin Acetaminophen (Tylenol) 650 mg Q4H PRN PO TEMP> 100.5F 09/25/16 08:45 10/10/16 21:16 Sodium Chloride (NS Flush) 5 ml UNSCH PRN IVF SEE PROTOCOL 09/25/16 08:45 10/21/16 23:43 Heparin Sodium (Porcine) (Heparin Central Flush) 250 units UNSCH PRN IVF SEE PROTOCOL 09/25/16 08:45 10/21/16 23:43 Sertraline HCl (Zoloft) 50 mg DAILY PO 09/26/16 09:00 10/23/16 09:56 Alteplase, Recombinant 2 mg 2 mg UNSCH PRN IVF SEE LABEL COMMENTS 09/25/16 10:15 10/10/16 09:09 Ondansetron HCl/ Dextrose (Zofran Inj/D5W Inj) 54 ml @ 216 mls/hr Q8H PRN IV PUSH NAUSEA OR VOMITING 09/25/16 10:30 09/27/16 02:13 Docusate Sodium (Colace) 100 mg TID PO 09/25/16 18:00 10/19/16 13:32 Fluconazole (Diflucan) 200 mg DAILY PO 09/27/16 13:00 10/23/16 09:56 Acetaminophen (Tylenol) 650 mg Q4H PRN PO FOR BLOOD PRODUCTS 09/30/16 22:00 10/22/16 11:13 Diphenhydramine HCl (Benadryl) 25 mg Q4H PRN PO FOR BLOOD PRODUCTS 09/30/16 22:00 10/22/16 11:13 Atenolol (Tenormin) 100 mg HS PO 10/14/16 21:00 10/22/16 21:12 Amlodipine Besylate (Norvasc) 5 mg DAILY PO 10/15/16 09:00 10/23/16 09:56 Lisinopril (Prinivil) 10 mg DAILY PO 10/15/16 09:00 10/23/16 09:56 Diazepam (Valium) 5 mg Q12H PRN PO MILD ANXIETY 10/20/16 11:15 10/21/16 01:48 Oxycodone HCl (Roxicodone) 5 mg DAILY PRN PO pain 10/20/16 11:15 10/21/16 22:36 Amphetamine/ Dextroamphetamine (Adderall Xr) 5 mg DAILY PO 10/22/16 09:00 10/24/16 09:01 10/23/16 09:56 Diazepam 10 mg 10 mg HS PRN PO INSOMNIA 10/21/16 08:30 10/22/16 23:06 Cefepime HCl 2000 mg/Sodium Chloride 100 ml @ 200 mls/hr Q8H IV 10/21/16 11:00 10/23/16 04:01 Metronidazole (Flagyl 500 Mg Inj) 100 ml @ 100 mls/hr Q8H IV 10/21/16 14:00 10/23/16 05:23 Loperamide HCl (Imodium) 2 mg UNSCH PRN PO DIARRHEA 10/22/16 09:00 10/22/16 10:02 Dronabinol (Marinol) 5 mg BID@11,16 PO 10/22/16 16:00 10/22/16 18:08 Objective Remarks GENERAL: Middle aged male, sitting up in bed in nad. SKIN: Warm and dry. port in place, right chest wall, dried blood around port site. HEAD: Normocephalic. EYES: No injection or drainage. NECK: Supple, trachea midline. CARDIOVASCULAR: Regular rate and rhythm RESPIRATORY: clear to auscultation bilaterally GASTROINTESTINAL: Abdomen soft, non-tender, nondistended. EXTREMITIES: No cyanosis NEUROLOGICAL: aox3, normals peech Assessment/Plan Problem List: (1) AML (acute myeloid leukemia) Status: Acute Plan: 10/23: D28/9. no transfusion. continue antibiotics. will increase Lisinopril to 20mg PO daily. 10/22: D27/8; 1 unit platelets. continue abx per ID 10/21: D26/7: 1 unit pRBC. CXR 10/20: D25/6. 1 unit platelets and pRBC. stop IVF. wean Adderall 10/19: D24/5 1 unit platelets. last day of chemotherapy 10/18: D23/4. give 2 units pRBC today. monitor for fever 10/17: D22/3. continue CLAG-M. no fever. 10/16: D21/2 Pt tolerated chemo well yesterday. No fevers. Counts OK. No headache. Continue chemo. Monitor counts, fevers. 10/15 D20/ start second cycle of CLAG-M today. D/W side effects and increase morbidity and mortality with the second cycle. He agreed . I will be OOT . Dr Newell will see him till thursday. 10/14: D19. patient started to receive Clarabine but the pump malfunction causing the chemo to spill on the floor. the chemo is being STAT ordered again and will arrive tomorrow morning. 10/13: bone marrow flow shows 70% blasts. d/w patient, repeating induction with CLAG-M chemotherapy or enrolling in a clinical trial. patient would like to try a second induction with CLAG-M. will give Neupogen today and start tomorrow. 10/12: Mildly tachycardic today in the 110's, but no fever. PRBC x 2 ordered today. 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 Will monitor blood counts, heart rate. Plan for repeat BMB on this upcoming week. 10/11: Spiked a fever this morning to 101.8. Will order blood cultures x 2, check UA. No longer tachycardic. Continue IV Abx. Transfuse 1 unit platelets today. 10/10: afebrile today. tolerating blood and platelet transfusions. will keep in ICU another night as he remains tachycardic. 10/09: bone marrow biopsy today. 1 unit platelets, 2 units pRBC. spiked fever 103F. cefepime started. spoke with ID, who advised me to start Daptomycin and Micafungin. transferred to ICU after becoming tachy in 140s 10/08: day 13. 1 unit platelets. bone marrow biopsy tomorrow. 10/07: flow cytometry results returned showing NPM1 + and FLT3 +. I obtained the original pathology again from to double check and the original FLT3 was NEGATIVE. NPM1 mutation was detected 43.4%, KIT mutation not detected. 46XY 10/06: 2 units pRBC today. plan to do bone marrow biopsy AM. 10/05: 1 unit platelets today 10/04: D9. no fever. 10/03: D8. no transfusion. monitor for fever 10/02: Will give 1 unit pRBC's, platelets today. Plan for repeat BMB on 10/10. 10/01: Finished chemotherapy yesterday. Tolerated well. 1 unit irradiated PRBC's to be transfused today. Continue to closely monitor blood counts. 09/30: D5. last day of chemotherapy. will give 1 unit platelets. 09/29: D4. continue chemotherapy. no transfusion. 09/28: D3. 09/27: D2 09/26: Start on CLAG-M chemotherapy for relapsed AML. Received Neupogen yesterday. He spiked a fever this afternoon of 101.3. BC, UA, and CXR ordered. Will start pt on Cefepime. Await BC results. --On 09/18 it was noted that he had a white count at 11k and a platelet count of 76k. Blasts were at 38%. He was brought in to the clinic on 09/24 for a bone marrow biopsy. A CBC was done and showed a white count of 63.7, Hgb 12.2, and platelet count was 33K. The blasts were at 73%. Decision was made at that time to admit for salvage chemo. History: 11/04: AML Diagnosis made. 46XY, +NPM1 mutation detected, FLT3 negative-- indicates favorable prognosis. 11/05-11/28: Initial induction with MELL-C and idarubicin (7+3). STAT Leukapheresis due to leukostasis. On D25, repeat bone marrow showed residual leukemia. 12/06-12/27: Re-induction with FLANG chemotherapy. Repeat bone marrow biopsy negative for residual AML. Patient in Complete Remission 01/06-01/10: C1 consolidation chemotherapy with Mell-C. 02/17-02/21: C2 consolidation chemotherapy with MELL-C. 03/25-03/30: C3 consolidation chemotherapy with MELL-C 04/28-05/02: C4 consolidation chemo with MELL-C (2) Nausea Status: Acute Plan: likely due to chemotherapy as well as antibiotics --improved on Marinol 2.5mg PO BID (3) Diarrhea Status: Acute Plan: --C. diff negative. --imodium PRN (4) Hypertension Status: Acute Plan: --on amlodipine, lisinopril, atenolol (5) Fever Status: Acute Plan: -- last + BC on 10/09 -->+ Fusobacterium species --ID following -- on Zosyn (6) DVT prophylaxis Status: Acute Plan: -- Thrombocytopenia; will hold off on chemical prophylaxis at this time. (7) Diabetes Status: Acute Plan: --on SSI Novolog (8) Depression Status: Acute Plan: --on Zoloft Assessment 46 y/o male admitted for salvage chemotherapy for relapsed AML. Attending Statement stable. continue present plan Problem Qualifiers (1) Diarrhea: Qualified Code: R19.7 - Diarrhea, unspecified type (2) Hypertension: Qualified Code: I10 - Essential hypertension (3) Fever: Qualified Code: R50.9 - Fever, unspecified fever cause (4) Diabetes: Qualified Code: E11.9 - Type 2 diabetes mellitus without complication, without long-term current use of insulin Janet Holm Oct 23, 2016 10:54 Alexandra Olea MD Oct 24, 2016 18:38
[2016-10-23] MEDS: DRONABINOL 2.5 MG CAP PO SCH ×2 (11:55→16:00)
[2016-10-23 12:00] VITALS: BP 151/96; PULSE 75; RESP 16; TEMP 96.4; O2SAT 97
[2016-10-23 16:00] VITALS: BP 157/99; PULSE 88; RESP 16; TEMP 96.9; O2SAT 97
[2016-10-23 20:00] VITALS: BP 135/91; PULSE 78; RESP 17; TEMP 96.8; O2SAT 98
[2016-10-23] MEDS: DIAZEPAM 10 MG TAB PO PRN (21:41)
[2016-10-23] MEDS: ATENOLOL 100 MG TAB PO SCH (21:41)
[2016-10-24] VITALS (7 sets, daily range): BP systolic 140–154; BP diastolic 81–95; PULSE 77–110; RESP 16–22; TEMP 96.7–101.8; O2SAT 93–99
[2016-10-24] MEDS: CEFEPIME 2000 MG/NS 100 ML IV SCH ×6 (03:21→19:14)
[2016-10-24] MEDS: INSULIN ASPART SUPPLEMENTAL SCALE SQ SCH ×4 (05:29→21:00)
[2016-10-24] MEDS: METRONIDAZOLE 500 MG/100 ML ISONTONIC SOLN IV SCH ×3 (05:29→21:30)
[2016-10-24] MEDS ORDERED: LISINOPRIL 20 MG TAB PO SCH (09:00)
[2016-10-24] MEDS: amLODIPine BESYLATE 5 MG TAB PO SCH (10:45)
[2016-10-24] MEDS: DEXTROAMPHETAMINE/AMPHETAMINE XR 5 MG CAP PO SCH (10:45)
[2016-10-24] MEDS: SERTRALINE HCL 50 MG TAB PO SCH (10:45)
[2016-10-24] MEDS: FLUCONAZOLE 200 MG TAB PO SCH (10:45)
[2016-10-24] MEDS: LOPERAMIDE HCL 2 MG CAP PO PRN (10:49)
[2016-10-24 12:15] LABS: HEMATOCRIT 28.6 % (39.0-51.0); MEAN CELL VOLUME 80.6 FL (80.0-100.0); MEAN CORPUSCULAR HEMOGLOBIN 28.9 PG (27.0-34.0); MEAN CORPUSCULAR HGB CONC 35.9 % (32.0-36.0); RED BLOOD COUNT 3.55 MIL/MM3 (4.50-5.90); RED CELL DISTRIBUTION WIDTH 13.9 % (11.6-17.2)
[2016-10-24 12:18] LABS: HEMO FLAGS AUTO DIFF
[2016-10-24 12:26] LABS: PLATELET COUNT 16 TH/MM3 (150-450)
[2016-10-24] MEDS: DRONABINOL 2.5 MG CAP PO SCH ×2 (12:39→15:42)
[2016-10-24 13:09] LABS: WBC DIFF SAMPLE 1
[2016-10-24 13:10] LABS: PLATELET ESTIMATE SMEAR RARE (NORMAL); PLATELET MORPHOLOGY NORMAL (NORMAL); SCAN/DIFF FINAL DIFF MANUAL
--- NOTE | 2016-10-24 13:22 | PD.ONC.PN ---
Subjective Subjective Remarks Afebrile overnight. patient stating he has been feeling somewhat weak. has been eating, but not a lot due to poor appetite. Stools becoming more firm. Objective Data Date Time Temp Pulse Resp B/P Pulse Ox O2 Delivery O2 Flow Rate FiO2 10/24/16 04:00 97.4 77 17 140/93 95 10/24/16 00:00 97.3 79 17 151/95 96 10/23/16 20:00 96.8 78 17 135/91 98 10/23/16 16:00 96.9 88 16 157/99 97 10/24/16 10/24/16 10/24/16 07:00 15:00 23:00 Intake Total 601 ml Balance 601 ml Result Diagram: 10/24/16 0530 10/22/16 0255 Laboratory Results Laboratory Tests Test 10/24/16 05:30 White Blood Count 0.0 TH/MM3 Red Blood Count 3.55 MIL/MM3 Hemoglobin 10.3 GM/DL Hematocrit 28.6 % Mean Corpuscular Volume 80.6 FL Mean Corpuscular Hemoglobin 28.9 PG Mean Corpuscular Hemoglobin 35.9 % Concent Red Cell Distribution Width 13.9 % Platelet Count 16 TH/MM3 Mean Platelet Volume 8.0 FL Neutrophils (%) (Auto) % Lymphocytes (%) (Auto) % Monocytes (%) (Auto) % Eosinophils (%) (Auto) % Basophils (%) (Auto) % Neutrophils # (Auto) TH/MM3 Lymphocytes # (Auto) TH/MM3 Monocytes # (Auto) TH/MM3 Eosinophils # (Auto) TH/MM3 Basophils # (Auto) TH/MM3 CBC Comment AUTO DIFF Differential Total Cells 1 Counted Lymphocytes % 100 % Neutrophils # (Manual) 0.0 TH/MM3 Differential Comment FINAL DIFF MANUAL Platelet Estimate RARE Platelet Morphology Comment NORMAL Red Cell Morphology Comment NORMAL Administered Medications Medications (Trade) Dose Ordered Sig/Génesis Route PRN Reason Start Time Stop Time Status Last Admin Dose Admin Acetaminophen (Tylenol) 650 mg Q4H PRN PO TEMP> 100.5F 09/25/16 08:45 10/10/16 21:16 Sodium Chloride (NS Flush) 5 ml UNSCH PRN IVF SEE PROTOCOL 09/25/16 08:45 10/21/16 23:43 Heparin Sodium (Porcine) (Heparin Central Flush) 250 units UNSCH PRN IVF SEE PROTOCOL 09/25/16 08:45 10/21/16 23:43 Sertraline HCl (Zoloft) 50 mg DAILY PO 09/26/16 09:00 10/24/16 10:45 Alteplase, Recombinant 2 mg 2 mg UNSCH PRN IVF SEE LABEL COMMENTS 09/25/16 10:15 10/10/16 09:09 Ondansetron HCl/ Dextrose (Zofran Inj/D5W Inj) 54 ml @ 216 mls/hr Q8H PRN IV PUSH NAUSEA OR VOMITING 09/25/16 10:30 09/27/16 02:13 Docusate Sodium (Colace) 100 mg TID PO 09/25/16 18:00 Hold 10/19/16 13:32 Fluconazole (Diflucan) 200 mg DAILY PO 09/27/16 13:00 10/24/16 10:45 Acetaminophen (Tylenol) 650 mg Q4H PRN PO FOR BLOOD PRODUCTS 09/30/16 22:00 10/22/16 11:13 Diphenhydramine HCl (Benadryl) 25 mg Q4H PRN PO FOR BLOOD PRODUCTS 09/30/16 22:00 10/22/16 11:13 Atenolol (Tenormin) 100 mg HS PO 10/14/16 21:00 10/23/16 21:41 Amlodipine Besylate (Norvasc) 5 mg DAILY PO 10/15/16 09:00 10/24/16 10:45 Diazepam (Valium) 5 mg Q12H PRN PO MILD ANXIETY 10/20/16 11:15 10/21/16 01:48 Oxycodone HCl (Roxicodone) 5 mg DAILY PRN PO pain 10/20/16 11:15 10/23/16 16:15 Diazepam 10 mg 10 mg HS PRN PO INSOMNIA 10/21/16 08:30 10/23/16 21:41 Cefepime HCl 2000 mg/Sodium Chloride 100 ml @ 200 mls/hr Q8H IV 10/21/16 11:00 10/24/16 10:44 Metronidazole (Flagyl 500 Mg Inj) 100 ml @ 100 mls/hr Q8H IV 10/21/16 14:00 10/24/16 05:29 Loperamide HCl (Imodium) 2 mg UNSCH PRN PO DIARRHEA 10/22/16 09:00 10/24/16 10:49 Dronabinol (Marinol) 2.5 mg BID@11,16 PO 10/23/16 11:00 10/24/16 12:39 Lisinopril (Prinivil) 20 mg DAILY PO 10/24/16 09:00 10/24/16 10:45 Objective Remarks GENERAL: Middle aged male, lying in bed in nad. SKIN: Warm and dry. port in place, right chest wall, clean dressing in place. HEAD: Normocephalic. EYES: No injection or drainage. NECK: Supple, trachea midline. CARDIOVASCULAR: Regular rate and rhythm RESPIRATORY: clear to auscultation bilaterally GASTROINTESTINAL: Abdomen soft, non-tender, nondistended. EXTREMITIES: No cyanosis NEUROLOGICAL: awake and alert, moving extremities. normal speech. Assessment/Plan Problem List: (1) AML (acute myeloid leukemia) Status: Acute Plan: 10/24: D29/10. no transfusion. abx per ID. monitor blood pressure with increased Lisinopril. 10/23: D28/9. no transfusion. continue antibiotics. will increase Lisinopril to 20mg PO daily. 10/22: D27/8; 1 unit platelets. continue abx per ID 10/21: D26/7: 1 unit pRBC. CXR 10/20: D25/6. 1 unit platelets and pRBC. stop IVF. wean Adderall 10/19: D24/5 1 unit platelets. last day of chemotherapy 10/18: D23/4. give 2 units pRBC today. monitor for fever 10/17: D22/3. continue CLAG-M. no fever. 10/16: D21/2 Pt tolerated chemo well yesterday. No fevers. Counts OK. No headache. Continue chemo. Monitor counts, fevers. 10/15 D20/1 start second cycle of CLAG-M today. D/W side effects and increase morbidity and mortality with the second cycle. He agreed . I will be OOT . Dr Newell will see him till thursday. 10/14: D19. patient started to receive Clarabine but the pump malfunction causing the chemo to spill on the floor. the chemo is being STAT ordered again and will arrive tomorrow morning. 10/13: bone marrow flow shows 70% blasts. d/w patient, repeating induction with CLAG-M chemotherapy or enrolling in a clinical trial. patient would like to try a second induction with CLAG-M. will give Neupogen today and start tomorrow. 10/12: Mildly tachycardic today in the 110's, but no fever. PRBC x 2 ordered today. 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 Will monitor blood counts, heart rate. Plan for repeat BMB on this upcoming week. 10/11: Spiked a fever this morning to 101.8. Will order blood cultures x 2, check UA. No longer tachycardic. Continue IV Abx. Transfuse 1 unit platelets today. 10/10: afebrile today. tolerating blood and platelet transfusions. will keep in ICU another night as he remains tachycardic. 10/09: bone marrow biopsy today. 1 unit platelets, 2 units pRBC. spiked fever 103F. cefepime started. spoke with ID, who advised me to start Daptomycin and Micafungin. transferred to ICU after becoming tachy in 140s 10/08: day 13. 1 unit platelets. bone marrow biopsy tomorrow. 10/07: flow cytometry results returned showing NPM1 + and FLT3 +. I obtained the original pathology again from to double check and the original FLT3 was NEGATIVE. NPM1 mutation was detected 43.4%, KIT mutation not detected. 46XY 10/06: 2 units pRBC today. plan to do bone marrow biopsy AM. 2: 1 unit platelets today 10/04: D9. no fever. 10/03: D8. no transfusion. monitor for fever 10/02: Will give 1 unit pRBC's, platelets today. Plan for repeat BMB on 10/10. 10/01: Finished chemotherapy yesterday. Tolerated well. 1 unit irradiated PRBC's to be transfused today. Continue to closely monitor blood counts. 09/30: D5. last day of chemotherapy. will give 1 unit platelets. 09/29: D4. continue chemotherapy. no transfusion. 09/28: D3. 09/27: D2 09/26: Start on CLAG-M chemotherapy for relapsed AML. Received Neupogen yesterday. He spiked a fever this afternoon of 101.3. BC, UA, and CXR ordered. Will start pt on Cefepime. Await BC results. --On 09/18 it was noted that he had a white count at 11k and a platelet count of 76k. Blasts were at 38%. He was brought in to the clinic on 09/24 for a bone marrow biopsy. A CBC was done and showed a white count of 63.7, Hgb 12.2, and platelet count was 33K. The blasts were at 73%. Decision was made at that time to admit for salvage chemo. History: 11/04: AML Diagnosis made. 46XY, +NPM1 mutation detected, FLT3 negative-- indicates favorable prognosis. 11/05-11/28: Initial induction with MELL-C and idarubicin (7+3). STAT Leukapheresis due to leukostasis. On D25, repeat bone marrow showed residual leukemia. 12/06-12/27: Re-induction with FLANG chemotherapy. Repeat bone marrow biopsy negative for residual AML. Patient in Complete Remission 01/06-01/10: C1 consolidation chemotherapy with Mell-C. 02/17-02/21: C2 consolidation chemotherapy with MELL-C. 03/25-03/30: C3 consolidation chemotherapy with MELL-C 04/28-05/02: C4 consolidation chemo with MELL-C (2) Nausea Status: Acute Plan: likely due to chemotherapy as well as antibiotics --improved on Marinol 2.5mg PO BID (3) Diarrhea Status: Acute Plan: --C. diff negative. --imodium PRN (4) Hypertension Status: Acute Plan: --on amlodipine, lisinopril, atenolol (5) Fever Status: Acute Plan: -- last + BC on 10/09 -->+ Fusobacterium species --ID following -- on Zosyn (6) DVT prophylaxis Status: Acute Plan: -- Thrombocytopenia; will hold off on chemical prophylaxis at this time. (7) Diabetes Status: Acute Plan: --on SSI Novolog (8) Depression Status: Acute Plan: --on Zoloft Assessment 46 y/o male admitted for salvage chemotherapy for relapsed AML. Attending Statement c/o anorexia and weight loss. BM are getting firmer. no fever. hg rising but wbc and plat remains low. will repeat BM bx on day 21. d/w him and answered his questions. Problem Qualifiers (1) Diarrhea: Qualified Code: R19.7 - Diarrhea, unspecified type (2) Hypertension: Qualified Code: I10 - Essential hypertension (3) Fever: Qualified Code: R50.9 - Fever, unspecified fever cause (4) Diabetes: Qualified Code: E11.9 - Type 2 diabetes mellitus without complication, without long-term current use of insulin Janet Holm Oct 24, 2016 13:22 Alexandra Olea MD Oct 24, 2016 18:40
[2016-10-24] MEDS: ONDANSETRON INJ 8 MG in DEXTROSE 5% IN WATER INJ 50 ML IV PUSH PRN ×2 (19:13)
[2016-10-24 20:27] LABS: BICARBONATE 28.5 MEQ/L (21.0-32.0); POTASSIUM 3.5 MEQ/L (3.5-5.1)
[2016-10-24] MEDS: ATENOLOL 100 MG TAB PO SCH (20:48)
[2016-10-24] MEDS: ACETAMINOPHEN 325 MG TAB PO PRN (20:48)
[2016-10-24] MEDS ORDERED: METOCLOPRAMIDE HCL 10 MG/2 ML VIAL IV ONE (21:30)
--- NOTE | 2016-10-24 22:19 | HHI.IDPN ---
Subjective Subjective Remarks New fever spike up to 101.8 Co abdominal pain No diarrhea No cough, no SOB Antibiotics cefepime, flagyl Allergies: Coded Allergies: Vancomycin (Verified Allergy, Severe, Rash, 04/28/16) Objective . Vital Signs Date Time Temp Pulse Resp B/P Pulse Ox O2 Delivery O2 Flow Rate FiO2 10/24/16 20:44 101.8 19 154/81 96 10/24/16 20:00 99.4 110 22 99 10/24/16 16:00 96.7 88 16 154/85 97 10/24/16 12:00 97.5 81 16 145/91 93 10/24/16 08:00 96.7 79 16 150/89 98 10/24/16 04:00 97.4 77 17 140/93 95 10/24/16 00:00 97.3 79 17 151/95 96 10/23/16 10/23/16 10/24/16 15:00 23:00 07:00 Intake Total 1200 ml 500 ml 601 ml Output Total 5 ml Balance 1195 ml 500 ml 601 ml Intake Oral 1200 ml 500 ml 480 ml IV Total 121 ml Output Urine Total 5 ml # Voids 3 # Bowel Movements 1 . Laboratory Tests Test 10/23/16 10/24/16 04:10 05:30 White Blood Count 0.0 TH/MM3 0.0 TH/MM3 Red Blood Count 3.34 MIL/MM3 3.55 MIL/MM3 Hemoglobin 9.5 GM/DL 10.3 GM/DL Hematocrit 27.1 % 28.6 % Mean Corpuscular Volume 81.1 FL 80.6 FL Mean Corpuscular Hemoglobin 28.5 PG 28.9 PG Mean Corpuscular Hemoglobin 35.1 % 35.9 % Concent Red Cell Distribution Width 13.6 % 13.9 % Platelet Count 24 TH/MM3 16 TH/MM3 Mean Platelet Volume 7.8 FL 8.0 FL Neutrophils (%) (Auto) % % Lymphocytes (%) (Auto) % % Monocytes (%) (Auto) % % Eosinophils (%) (Auto) % % Basophils (%) (Auto) % % Neutrophils # (Auto) TH/MM3 TH/MM3 Lymphocytes # (Auto) TH/MM3 TH/MM3 Monocytes # (Auto) TH/MM3 TH/MM3 Eosinophils # (Auto) TH/MM3 TH/MM3 Basophils # (Auto) TH/MM3 TH/MM3 CBC Comment AUTO DIFF AUTO DIFF Differential Total Cells 1 1 Counted Lymphocytes % 100 % 100 % Differential Comment FINAL DIFF FINAL DIFF MANUAL MANUAL Platelet Estimate LOW RARE Platelet Morphology Comment NORMAL NORMAL Neutrophils # (Manual) 0.0 TH/MM3 Red Cell Morphology Comment NORMAL Laboratory Tests Test 10/24/16 18:45 Sodium Level 136 MEQ/L Potassium Level 3.5 MEQ/L Chloride Level 99 MEQ/L Carbon Dioxide Level 28.5 MEQ/L Anion Gap 9 MEQ/L Blood Urea Nitrogen 11 MG/DL Creatinine 0.48 MG/DL Estimat Glomerular Filtration 186 ML/MIN Rate Random Glucose 211 MG/DL Calcium Level 8.6 MG/DL Microbiology Date/Time Procedure Status Source Growth 10/24/16 21:28 Aerobic Blood Culture Received Blood Peripheral Pending 10/24/16 21:28 Anaerobic Blood Culture Received Blood Peripheral Pending 10/24/16 21:42 Aerobic Blood Culture Received Blood Peripheral Pending 10/24/16 21:42 Anaerobic Blood Culture Received Blood Peripheral Pending Imaging Last Impressions Chest X-Ray 10/21/16 0000 Signed Impressions: Service Date/Time: Friday, October 21, 2016 08:48 - CONCLUSION: 1. No acute cardiopulmonary disease. Rashid Carlin MD Head CT 10/14/16 0000 Signed Impressions: Service Date/Time: Friday, October 14, 2016 09:52 - CONCLUSION: 1. No acute intracranial abnormality is identified. 2. Minimal mucoperiosteal thickening in the left maxillary and ethmoid sinus. Eric Collazo MD Physical Exam CONSTITUTIONAL/GENERAL: This is an adequately nourished patient, in no apparent distress. TUBES/LINES/DRAINS: PORT in R chest - site OK SKIN: No jaundice, scatered petechia BLE Skin temperature appropriate. Not diaphoretic. EYES: Pupils equal and round and reactive. Extraocular motions intact. No scleral icterus. No injection or drainage. Fundi not examined. CARDIOVASCULAR: Regular rate and rhythm without murmurs, gallops, or rubs. RESPIRATORY/CHEST: Symmetric, unlabored respirations. Clear to auscultation. Breath sounds equal bilaterally. No wheezes, rales, or rhonchi. GASTROINTESTINAL: Abdomen soft, non-tender, not distended. No hepato- splenomegaly, or palpable masses. No guarding. Bowel sounds present. MUSCULOSKELETAL: Extremities without clubbing, cyanosis, or edema. NEUROLOGICAL: Awake and alert. Motor and sensory grossly within normal limits. Follows commands. Cognitively sharp. Moves all extremities. PSYCHIATRIC: No obvious anxiety/depression. 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 source oral ulcer Reports adverse reaction to IV vanco in the form of diarrhea Diarrhea, C.diff negative - cont cefepime, flagyl - add daptocyn - add micafungin - fu BC - CXR dw RN dw Laura Whitten MD Oct 24, 2016 22:19
[2016-10-24] MEDS: DAPTOmycin INJ 700 MG in SODIUM CHLORIDE 0.9% INJ 100 ML IV SCH (23:04)
[2016-10-25] VITALS (12 sets, daily range): BP systolic 98–127; BP diastolic 63–78; PULSE 77–100; RESP 14–20; TEMP 95.7–99.8; O2SAT 90–99
[2016-10-25] MEDS: MICAFUNGIN INJ 150 MG in SODIUM CHLORIDE 0.9% INJ 100 ML IV SCH ×2 (00:05→23:51)
[2016-10-25] MEDS: DIAZEPAM 10 MG TAB PO PRN ×2 (00:07→20:52)
[2016-10-25 00:25] LABS: BLOOD, URINE NEG (NEG); GLUCOSE,URINE 70 mg/dL (NEG); KETONE, URINE NEG (NEG); MUCUS URINE FEW /lpf (OCC); NITRITE,URINE NEG (NEG); PH, URINE 6.5 (5.0-8.5); URINE COLOR YELLOW (YELLW/STRAW)
[2016-10-25 00:26] LABS: COMMENT (UR) CULT NOT INDICATED; CULTURE IF INDICATED CULT NOT INDICATED
[2016-10-25] MEDS: CEFEPIME 2000 MG/NS 100 ML IV SCH ×6 (01:26→18:26)
[2016-10-25] MEDS: METRONIDAZOLE 500 MG/100 ML ISONTONIC SOLN IV SCH ×3 (06:19→21:02)
[2016-10-25 07:08] LABS: HEMATOCRIT 25.1 % (39.0-51.0); MEAN CELL VOLUME 79.7 FL (80.0-100.0); MEAN CORPUSCULAR HEMOGLOBIN 28.4 PG (27.0-34.0); MEAN CORPUSCULAR HGB CONC 35.7 % (32.0-36.0); RED BLOOD COUNT 3.15 MIL/MM3 (4.50-5.90); RED CELL DISTRIBUTION WIDTH 13.6 % (11.6-17.2)
[2016-10-25 07:14] LABS: HEMO FLAGS AUTO DIFF
[2016-10-25 07:16] LABS: PLATELET COUNT 5 TH/MM3 (150-450)
[2016-10-25 08:50] LABS: WBC DIFF SAMPLE 1
[2016-10-25 08:51] LABS: PLATELET ESTIMATE SMEAR RARE (NORMAL); PLATELET MORPHOLOGY NORMAL (NORMAL); SCAN/DIFF FINAL DIFF MANUAL
[2016-10-25] MEDS ORDERED: SODIUM CHLOR 0.9% 250 ML INJ 250 ML IV ONE (09:45)
[2016-10-25] MEDS: amLODIPine BESYLATE 5 MG TAB PO SCH (10:25)
[2016-10-25] MEDS: FLUCONAZOLE 200 MG TAB PO SCH (10:26)
[2016-10-25] MEDS: SERTRALINE HCL 50 MG TAB PO SCH (10:26)
[2016-10-25] MEDS: DRONABINOL 2.5 MG CAP PO SCH ×2 (10:27→18:20)
[2016-10-25] MEDS: LOPERAMIDE HCL 2 MG CAP PO PRN (10:29)
[2016-10-25] MEDS: INSULIN ASPART SUPPLEMENTAL SCALE SQ SCH ×3 (10:30→20:59)
--- NOTE | 2016-10-25 10:39 | PD.ONC.PN ---
Subjective Subjective Remarks Pt spiked fever to 101.8 last night. ID in to see pt. Abx changed. Blood cultures x2, UA ordered. He is now having increased diarrhea Reports he had abdominal pain yesterday Denies SOB Does not like the way Marinol makes him feel No bleeding Objective Data Date Time Temp Pulse Resp B/P Pulse Ox O2 Delivery O2 Flow Rate FiO2 10/25/16 08:00 97.7 78 16 119/73 95 10/25/16 05:00 95.7 82 15 98/65 93 10/25/16 01:21 91 95 10/25/16 01:20 97.8 10/25/16 00:00 99.8 100 18 127/72 96 10/24/16 21:50 18 10/24/16 20:44 101.8 19 154/81 96 10/24/16 20:00 20 10/24/16 20:00 99.4 110 22 99 10/24/16 16:00 96.7 88 16 154/85 97 10/24/16 12:00 97.5 81 16 145/91 93 10/25/16 10/25/16 10/25/16 07:00 15:00 23:00 Intake Total 2000 ml Balance 2000 ml Result Diagram: 10/25/16 0620 10/24/16 1845 Laboratory Results Laboratory Tests Test 10/24/16 10/25/16 10/25/16 18:45 00:01 06:20 Sodium Level 136 MEQ/L Potassium Level 3.5 MEQ/L Chloride Level 99 MEQ/L Carbon Dioxide Level 28.5 MEQ/L Anion Gap 9 MEQ/L Blood Urea Nitrogen 11 MG/DL Creatinine 0.48 MG/DL Estimat Glomerular Filtration 186 ML/MIN Rate Random Glucose 211 MG/DL Calcium Level 8.6 MG/DL Urine Color YELLOW Urine Turbidity CLEAR Urine pH 6.5 Urine Specific [place] 1.017 Urine Protein NEG mg/dL Urine Glucose (UA) 70 mg/dL Urine Ketones NEG mg/dL Urine Occult Blood NEG Urine Nitrite NEG Urine Bilirubin NEG Urine Urobilinogen LESS THAN 2.0 MG/DL Urine Leukocyte Esterase NEG Urine RBC 1 /hpf Urine WBC LESS THAN 1 /hpf Urine Mucus FEW /lpf Microscopic Urinalysis Comment CULT NOT INDICATED White Blood Count 0.0 TH/MM3 Red Blood Count 3.15 MIL/MM3 Hemoglobin 9.0 GM/DL Hematocrit 25.1 % Mean Corpuscular Volume 79.7 FL Mean Corpuscular Hemoglobin 28.4 PG Mean Corpuscular Hemoglobin 35.7 % Concent Red Cell Distribution Width 13.6 % Platelet Count 5 TH/MM3 Mean Platelet Volume 7.8 FL Neutrophils (%) (Auto) % Lymphocytes (%) (Auto) % Monocytes (%) (Auto) % Eosinophils (%) (Auto) % Basophils (%) (Auto) % Neutrophils # (Auto) TH/MM3 Lymphocytes # (Auto) TH/MM3 Monocytes # (Auto) TH/MM3 Eosinophils # (Auto) TH/MM3 Basophils # (Auto) TH/MM3 CBC Comment AUTO DIFF Differential Total Cells 1 Counted Lymphocytes % 100 % Neutrophils # (Manual) 0.0 TH/MM3 Differential Comment FINAL DIFF MANUAL Platelet Estimate RARE Platelet Morphology Comment NORMAL Culture Results Microbiology Date/Time Procedure Status Source Growth 10/24/16 21:28 Aerobic Blood Culture Resulted Blood Peripheral Pending 10/24/16 21:28 Anaerobic Blood Culture - Preliminary Resulted Gram Positive Rods 10/24/16 21:42 Aerobic Blood Culture Resulted Blood Peripheral Pending 10/24/16 21:42 Anaerobic Blood Culture - Preliminary Resulted Gram Positive Rods 10/24/16 23:18 Influenza Types A,B Antigen (MALINI) - Final Complete Nasal Washing NEGATIVE FOR FLU A AND B ANTIGEN.... Administered Medications Medications (Trade) Dose Ordered Sig/Génesis Route PRN Reason Start Time Stop Time Status Last Admin Dose Admin Acetaminophen (Tylenol) 650 mg Q4H PRN PO TEMP> 100.5F 09/25/16 08:45 10/24/16 20:48 Sodium Chloride (NS Flush) 5 ml UNSCH PRN IVF SEE PROTOCOL 09/25/16 08:45 10/21/16 23:43 Heparin Sodium (Porcine) (Heparin Central Flush) 250 units UNSCH PRN IVF SEE PROTOCOL 09/25/16 08:45 10/21/16 23:43 Sertraline HCl (Zoloft) 50 mg DAILY PO 09/26/16 09:00 10/24/16 10:45 Alteplase, Recombinant 2 mg 2 mg UNSCH PRN IVF SEE LABEL COMMENTS 09/25/16 10:15 10/10/16 09:09 Ondansetron HCl/ Dextrose (Zofran Inj/D5W Inj) 54 ml @ 216 mls/hr Q8H PRN IV PUSH NAUSEA OR VOMITING 09/25/16 10:30 10/24/16 19:13 Docusate Sodium (Colace) 100 mg TID PO 09/25/16 18:00 Hold 10/19/16 13:32 Fluconazole (Diflucan) 200 mg DAILY PO 09/27/16 13:00 10/24/16 10:45 Acetaminophen (Tylenol) 650 mg Q4H PRN PO FOR BLOOD PRODUCTS 09/30/16 22:00 10/22/16 11:13 Diphenhydramine HCl (Benadryl) 25 mg Q4H PRN PO FOR BLOOD PRODUCTS 09/30/16 22:00 10/22/16 11:13 Atenolol (Tenormin) 100 mg HS PO 10/14/16 21:00 10/24/16 20:48 Amlodipine Besylate (Norvasc) 5 mg DAILY PO 10/15/16 09:00 10/24/16 10:45 Diazepam (Valium) 5 mg Q12H PRN PO MILD ANXIETY 10/20/16 11:15 10/21/16 01:48 Oxycodone HCl (Roxicodone) 5 mg DAILY PRN PO pain 10/20/16 11:15 10/24/16 19:12 Diazepam 10 mg 10 mg HS PRN PO INSOMNIA 10/21/16 08:30 10/25/16 00:07 Cefepime HCl 2000 mg/Sodium Chloride 100 ml @ 200 mls/hr Q8H IV 10/21/16 11:00 10/25/16 01:26 Metronidazole (Flagyl 500 Mg Inj) 100 ml @ 100 mls/hr Q8H IV 10/21/16 14:00 10/25/16 06:19 Loperamide HCl (Imodium) 2 mg UNSCH PRN PO DIARRHEA 10/22/16 09:00 10/24/16 10:49 Dronabinol 2.5 mg 2.5 mg BID@11,16 PO 10/23/16 11:00 10/24/16 12:39 Daptomycin 700 mg/ Sodium Chloride 100 ml @ 200 mls/hr Q24H IV 10/24/16 23:00 10/24/16 23:04 Micafungin Sodium/ Sodium Chloride (Mycamine Inj/NS Inj) 100 ml @ 100 mls/hr Q24H IV 10/25/16 00:00 10/25/16 00:05 Objective Remarks GENERAL: Middle aged male, sitting up in chair eating breakfast in no distress. SKIN: Warm and dry. port in place, right chest wall, clean dressing in place. No bleeding. HEAD: Normocephalic. EYES: No injection or drainage. NECK: Supple, trachea midline. CARDIOVASCULAR: Regular rate and rhythm RESPIRATORY: clear to auscultation bilaterally GASTROINTESTINAL: Abdomen soft. Mildly tender to deep palpation EXTREMITIES: No cyanosis or edema. NEUROLOGICAL: awake and alert, moving extremities. normal speech. Assessment/Plan Problem List: (1) AML (acute myeloid leukemia) Status: Acute Plan: 10/25: D30/11: 2 units irradiated platelets today. Will do CT of the abdomen with recent abdominal pain, fever. Continue current IV Abx per ID. Preliminary micro ++gram positive rods 10/24: D29/10. no transfusion. abx per ID. monitor blood pressure with increased Lisinopril. 10/23: D28/9. no transfusion. continue antibiotics. will increase Lisinopril to 20mg PO daily. 10/22: D27/8; 1 unit platelets. continue abx per ID 10/21: D26/7: 1 unit pRBC. CXR 10/20: D25/6. 1 unit platelets and pRBC. stop IVF. wean Adderall 10/19: D24/5 1 unit platelets. last day of chemotherapy 10/18: D23/4. give 2 units pRBC today. monitor for fever 10/17: D22/3. continue CLAG-M. no fever. 10/16: D21/2 Pt tolerated chemo well yesterday. No fevers. Counts OK. No headache. Continue chemo. Monitor counts, fevers. 10/15 D20/1 start second cycle of CLAG-M today. D/W side effects and increase morbidity and mortality with the second cycle. He agreed . I will be OOT . Dr Newell will see him till thursday. 10/14: D19. patient started to receive Clarabine but the pump malfunction causing the chemo to spill on the floor. the chemo is being STAT ordered again and will arrive tomorrow morning. 10/13: bone marrow flow shows 70% blasts. d/w patient, repeating induction with CLAG-M chemotherapy or enrolling in a clinical trial. patient would like to try a second induction with CLAG-M. will give Neupogen today and start tomorrow. 10/12: Mildly tachycardic today in the 110's, but no fever. PRBC x 2 ordered today. PLASTER MOLDER replacing potassium per protocol for level of 3.2. Will monitor blood counts, heart rate. Plan for repeat BMB on this upcoming week. 10/11: Spiked a fever this morning to 101.8. Will order blood cultures x 2, check UA. No longer tachycardic. Continue IV Abx. Transfuse 1 unit platelets today. 10/10: afebrile today. tolerating blood and platelet transfusions. will keep in ICU another night as he remains tachycardic. 10/09: bone marrow biopsy today. 1 unit platelets, 2 units pRBC. spiked fever 103F. cefepime started. spoke with ID, who advised me to start Daptomycin and Micafungin. transferred to ICU after becoming tachy in 140s 10/08: day 13. 1 unit platelets. bone marrow biopsy tomorrow. 10/07: flow cytometry results returned showing NPM1 + and FLT3 +. I obtained the original pathology again from to double check and the original FLT3 was NEGATIVE. NPM1 mutation was detected 43.4%, KIT mutation not detected. 46XY 10/06: 2 units pRBC today. plan to do bone marrow biopsy AM. 10/05: 1 unit platelets today 10/04: D9. no fever. 10/03: D8. no transfusion. monitor for fever 10/02: Will give 1 unit pRBC's, platelets today. Plan for repeat BMB on 10/10. 10/01: Finished chemotherapy yesterday. Tolerated well. 1 unit irradiated PRBC's to be transfused today. Continue to closely monitor blood counts. 09/30: D5. last day of chemotherapy. will give 1 unit platelets. 09/29: D4. continue chemotherapy. no transfusion. 09/28: D3. 09/27: D2 09/26: Start on CLAG-M chemotherapy for relapsed AML. Received Neupogen yesterday. He spiked a fever this afternoon of 101.3. BC, UA, and CXR ordered. Will start pt on Cefepime. Await BC results. --On 09/18 it was noted that he had a white count at 11k and a platelet count of 76k. Blasts were at 38%. He was brought in to the clinic on 09/24 for a bone marrow biopsy. A CBC was done and showed a white count of 63.7, Hgb 12.2, and platelet count was 33K. The blasts were at 73%. Decision was made at that time to admit for salvage chemo. History: 11/04: AML Diagnosis made. 46XY, +NPM1 mutation detected, FLT3 negative-- indicates favorable prognosis. 11/05-11/28: Initial induction with MELL-C and idarubicin (7+3). STAT Leukapheresis due to leukostasis. On D2, repeat bone marrow showed residual leukemia. 12/06-12/27: Re-induction with FLANG chemotherapy. Repeat bone marrow biopsy negative for residual AML. Patient in Complete Remission 01/06-01/10: C1 consolidation chemotherapy with Mell-C. 02/17-02/21: C2 consolidation chemotherapy with MELL-C. 03/25-03/30: C3 consolidation chemotherapy with MELL-C 04/28-05/02: C4 consolidation chemo with MELL-C (2) Nausea Status: Acute Plan: likely due to chemotherapy as well as antibiotics --prn Ondansetron -- prn Reglan (3) Diarrhea Status: Acute Plan: --C. diff negative. --imodium PRN (4) Hypertension Status: Acute Plan: --on amlodipine, lisinopril, atenolol (5) Fever Status: Acute Plan: -- Preliminary ++ BC on 10/24 --> Gram - rods --ID following -- on Daptomycin, Micafungin, Flagyl, Cefepime and Fluconazole (6) DVT prophylaxis Status: Acute Plan: -- Thrombocytopenia; will hold off on chemical prophylaxis at this time. (7) Diabetes Status: Acute Plan: --on SSI Novolog (8) Depression Status: Acute Plan: --on Zoloft Assessment 46 y/o male admitted for salvage chemotherapy for relapsed AML. Attending Statement The exam, history, and the medical decision-making described in the above note were completed with the assistance of the mid-level provider. I reviewed and agree with the findings presented. I attest that I had a [id number] encounter with the patient on the same day, and personally performed and documented my assessment and findings in the medical record. Patient was seen and examined, chart was reviewed, vital signs, labs, medications and blood cultures reviewed. Most recent chemotherapy regimen details were also reviewed as well as pathology. The patient spiked a temperature 101.8F last night at about 9 PM. He was initiated on daptomycin and micafungin, was already on cefepime. Blood cultures 2 were obtained and these are already growing gram-positive rods. Case was discussed with Dr. Galarza who was the ID attending construction driller last night. This morning the patient is afebrile, he appears to be stable clinically. His issue today is that of worsening thrombocytopenia for which platelet transfusion has been ordered. His major complaint is that of abdominal pain involving the right lower quadrant. He denies diarrhea or hematochezia. Case was discussed thoroughly with Ms. Valarie ROCK. Advised to units platelet transfusion (CMV negative and irradiated). Continue antibiotics. Obtain imaging studies of the abdomen should he develop acute abdominal signs such as diarrhea, hematochezia or worsening pain. Problem Qualifiers (1) Diarrhea: Qualified Code: R19.7 - Diarrhea, unspecified type (2) Hypertension: Qualified Code: I10 - Essential hypertension (3) Fever: Qualified Code: R50.9 - Fever, unspecified fever cause (4) Diabetes: Qualified Code: E11.9 - Type 2 diabetes mellitus without complication, without long-term current use of insulin Valarie Lopez Oct 25, 2016 10:39 Morteza Orr MD Oct 25, 2016 14:22
[2016-10-25] MEDS: diphenhydrAMINE HCL 25 MG CAP PO PRN (13:10)
[2016-10-25] MEDS: ACETAMINOPHEN 325 MG TAB PO PRN (13:10)
--- NOTE | 2016-10-25 17:55 | HHI.IDPN ---
Subjective Subjective Remarks No fever sincve new abx added no abdominal pain + diarrhea again No cough, no SOB growing GPR 2/2 Antibiotics cefepime, flagyl dapto micafungin Allergies: Coded Allergies: Vancomycin (Verified Allergy, Severe, Rash, 04/28/16) Objective . Vital Signs Date Time Temp Pulse Resp B/P Pulse Ox O2 Delivery O2 Flow Rate FiO2 10/25/16 16:42 98.1 86 20 121/75 10/25/16 16:20 97.6 77 18 116/69 99 10/25/16 16:00 97.6 77 14 116/69 99 10/25/16 14:49 97.2 86 18 110/75 90 10/25/16 14:25 96.1 83 18 123/78 93 10/25/16 12:00 98.1 83 18 106/63 98 10/25/16 08:00 97.7 78 16 119/73 95 10/25/16 05:00 95.7 82 15 98/65 93 10/25/16 01:21 91 95 10/25/16 01:20 97.8 10/25/16 00:00 99.8 100 18 127/72 96 10/24/16 21:50 18 10/24/16 20:44 101.8 19 154/81 96 10/24/16 20:00 20 10/24/16 20:00 99.4 110 22 99 10/24/16 10/24/16 10/25/16 15:00 23:00 07:00 Intake Total 240 ml 2000 ml Balance 240 ml 2000 ml Intake Oral 240 ml 2000 ml # Voids 2 4 . Laboratory Tests Test 10/24/16 10/25/16 05:30 06:20 White Blood Count 0.0 TH/MM3 0.0 TH/MM3 Red Blood Count 3.55 MIL/MM3 3.15 MIL/MM3 Hemoglobin 10.3 GM/DL 9.0 GM/DL Hematocrit 28.6 % 25.1 % Mean Corpuscular Volume 80.6 FL 79.7 FL Mean Corpuscular Hemoglobin 28.9 PG 28.4 PG Mean Corpuscular Hemoglobin 35.9 % 35.7 % Concent Red Cell Distribution Width 13.9 % 13.6 % Platelet Count 16 TH/MM3 5 TH/MM3 Mean Platelet Volume 8.0 FL 7.8 FL Neutrophils (%) (Auto) % % Lymphocytes (%) (Auto) % % Monocytes (%) (Auto) % % Eosinophils (%) (Auto) % % Basophils (%) (Auto) % % Neutrophils # (Auto) TH/MM3 TH/MM3 Lymphocytes # (Auto) TH/MM3 TH/MM3 Monocytes # (Auto) TH/MM3 TH/MM3 Eosinophils # (Auto) TH/MM3 TH/MM3 Basophils # (Auto) TH/MM3 TH/MM3 CBC Comment AUTO DIFF AUTO DIFF Differential Total Cells 1 1 Counted Lymphocytes % 100 % 100 % Neutrophils # (Manual) 0.0 TH/MM3 0.0 TH/MM3 Differential Comment FINAL DIFF FINAL DIFF MANUAL MANUAL Platelet Estimate RARE RARE Platelet Morphology Comment NORMAL NORMAL Red Cell Morphology Comment NORMAL Laboratory Tests Test 10/24/16 18:45 Sodium Level 136 MEQ/L Potassium Level 3.5 MEQ/L Chloride Level 99 MEQ/L Carbon Dioxide Level 28.5 MEQ/L Anion Gap 9 MEQ/L Blood Urea Nitrogen 11 MG/DL Creatinine 0.48 MG/DL Estimat Glomerular Filtration 186 ML/MIN Rate Random Glucose 211 MG/DL Calcium Level 8.6 MG/DL Microbiology Date/Time Procedure Status Source Growth 10/24/16 21:28 Aerobic Blood Culture - Preliminary Resulted Blood Peripheral NO GROWTH IN 1 DAY 10/24/16 21:28 Anaerobic Blood Culture - Preliminary Resulted Gram Positive Rods 10/24/16 21:42 Aerobic Blood Culture - Preliminary Resulted Blood Peripheral NO GROWTH IN 1 DAY 10/24/16 21:42 Anaerobic Blood Culture - Preliminary Resulted Gram Positive Rods 10/24/16 23:18 Influenza Types A,B Antigen (MALINI) - Final Complete Nasal Washing NEGATIVE FOR FLU A AND B ANTIGEN.... Imaging Last Impressions Chest X-Ray 10/21/16 0000 Signed Impressions: Service Date/Time: Friday, October 21, 2016 08:48 - CONCLUSION: 1. No acute cardiopulmonary disease. Rashid Carlin MD Head CT 10/14/16 0000 Signed Impressions: Service Date/Time: Friday, October 14, 2016 09:52 - CONCLUSION: 1. No acute intracranial abnormality is identified. 2. Minimal mucoperiosteal thickening in the left maxillary and ethmoid sinus. Eric Collazo MD Physical Exam CONSTITUTIONAL/GENERAL: This is an adequately nourished patient, in no apparent distress. TUBES/LINES/DRAINS: PORT in R chest - site OK SKIN: No jaundice, scatered petechia BLE Skin temperature appropriate. Not diaphoretic. EYES: Pupils equal and round and reactive. Extraocular motions intact. No scleral icterus. No injection or drainage. Fundi not examined. CARDIOVASCULAR: Regular rate and rhythm without murmurs, gallops, or rubs. RESPIRATORY/CHEST: Symmetric, unlabored respirations. Clear to auscultation. Breath sounds equal bilaterally. No wheezes, rales, or rhonchi. GASTROINTESTINAL: Abdomen soft, non-tender, not distended. No hepato- splenomegaly, or palpable masses. No guarding. Bowel sounds present. MUSCULOSKELETAL: Extremities without clubbing, cyanosis, or edema. NEUROLOGICAL: Awake and alert. Motor and sensory grossly within normal limits. Follows commands. Cognitively sharp. Moves all extremities. PSYCHIATRIC: No obvious anxiety/depression. 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 source oral ulcer Reports adverse reaction to IV vanco in the form of diarrhea Diarrhea, C.diff negative - cont cefepime, flagyl - cont daptomycyn - monitor CKs - cont micafungin; if no yeast by 3-4 days in blood clx will d/c micafungin - fu BC untill final Laura Galarza MD Oct 25, 2016 17:55
[2016-10-25] MEDS: ATENOLOL 100 MG TAB PO SCH (20:49)
[2016-10-25 21:38] LABS: HEMATOCRIT 22.4 % (39.0-51.0); MEAN CELL VOLUME 79.9 FL (80.0-100.0); MEAN CORPUSCULAR HEMOGLOBIN 28.6 PG (27.0-34.0); MEAN CORPUSCULAR HGB CONC 35.8 % (32.0-36.0); PLATELET COUNT 29 TH/MM3 (150-450); RED CELL DISTRIBUTION WIDTH 13.5 % (11.6-17.2)
[2016-10-25 21:48] LABS: REVIEW FLAG FINAL
[2016-10-25] MEDS: DAPTOmycin INJ 700 MG in SODIUM CHLORIDE 0.9% INJ 100 ML IV SCH (22:25)
[2016-10-26] MEDS: CEFEPIME 2000 MG/NS 100 ML IV SCH ×6 (03:30→18:23)
[2016-10-26 03:33] VITALS: BP 127/83; PULSE 84; RESP 19; TEMP 98.8; O2SAT 100
[2016-10-26] MEDS: METRONIDAZOLE 500 MG/100 ML ISONTONIC SOLN IV SCH ×3 (06:40→21:37)
[2016-10-26 07:39] LABS: HEMATOCRIT 22.5 % (39.0-51.0); HEMO FLAGS AUTO DIFF; MEAN CELL VOLUME 79.1 FL (80.0-100.0); MEAN CORPUSCULAR HEMOGLOBIN 28.5 PG (27.0-34.0); PLATELET COUNT 24 TH/MM3 (150-450); RED BLOOD COUNT 2.85 MIL/MM3 (4.50-5.90); RED CELL DISTRIBUTION WIDTH 13.3 % (11.6-17.2)
[2016-10-26 07:44] LABS: ALKALINE PHOSPHATASE 96 U/L (45-117); ALT (GPT) 14 U/L (12-78); ANION GAP 6 MEQ/L (5-15); AST (GOT) 7 U/L (15-37); BICARBONATE 30.1 MEQ/L (21.0-32.0); BLOOD UREA NITROGEN 7 MG/DL (7-18); CHLORIDE 101 MEQ/L (98-107); GLOMERULAR FILTRATION RATE 251 ML/MIN (>89); POTASSIUM 3.5 MEQ/L (3.5-5.1); SODIUM (NA) 137 MEQ/L (136-145); TOTAL BILIRUBIN ADULT 0.6 MG/DL (0.2-1.0)
[2016-10-26 07:51] LABS: CREATINE KINASE 25 U/L (39-308)
[2016-10-26 08:00] VITALS: BP 131/88; PULSE 82; RESP 16; TEMP 98.1; O2SAT 95
--- NOTE | 2016-10-26 09:35 | PD.ONC.PN ---
Subjective Subjective Remarks Afebrile overnight. Pt resting in bed in no distress. He states he feels like he is "over the hump" and feels much better today than he has in a while. Denies SOB or abdominal pain. Diarrhea is improved. Objective Data Date Time Temp Pulse Resp B/P Pulse Ox O2 Delivery O2 Flow Rate FiO2 10/26/16 08:00 98.1 82 16 131/88 95 10/26/16 03:33 98.8 84 19 127/83 100 10/25/16 22:00 18 10/25/16 20:00 98.5 96 17 124/72 96 10/25/16 16:42 98.1 86 20 121/75 10/25/16 16:20 97.6 77 18 116/69 99 10/25/16 16:00 97.6 77 14 116/69 99 10/25/16 14:49 97.2 86 18 110/75 90 10/25/16 14:25 96.1 83 18 123/78 93 10/25/16 12:00 98.1 83 18 106/63 98 Result Diagram: 10/26/16 0637 10/26/16 0637 Laboratory Results Laboratory Tests Test 10/25/16 10/25/16 10/26/16 10:11 20:30 06:37 Blood Bank Comment White Blood Count 0.0 TH/MM3 0.0 TH/MM3 Red Blood Count 2.80 MIL/MM3 2.85 MIL/MM3 Hemoglobin 8.0 GM/DL 8.1 GM/DL Hematocrit 22.4 % 22.5 % Mean Corpuscular Volume 79.9 FL 79.1 FL Mean Corpuscular Hemoglobin 28.6 PG 28.5 PG Mean Corpuscular Hemoglobin 35.8 % 36.0 % Concent Red Cell Distribution Width 13.5 % 13.3 % Platelet Count 29 TH/MM3 24 TH/MM3 Mean Platelet Volume 8.4 FL 7.8 FL Neutrophils (%) (Auto) % Lymphocytes (%) (Auto) % Monocytes (%) (Auto) % Eosinophils (%) (Auto) % Basophils (%) (Auto) % Neutrophils # (Auto) TH/MM3 Lymphocytes # (Auto) TH/MM3 Monocytes # (Auto) TH/MM3 Eosinophils # (Auto) TH/MM3 Basophils # (Auto) TH/MM3 CBC Comment AUTO DIFF Sodium Level 137 MEQ/L Potassium Level 3.5 MEQ/L Chloride Level 101 MEQ/L Carbon Dioxide Level 30.1 MEQ/L Anion Gap 6 MEQ/L Blood Urea Nitrogen 7 MG/DL Creatinine 0.37 MG/DL Estimat Glomerular Filtration 251 ML/MIN Rate Random Glucose 145 MG/DL Calcium Level 8.4 MG/DL Total Bilirubin 0.6 MG/DL Aspartate Amino Transf 7 U/L (AST/SGOT) Alanine Aminotransferase 14 U/L (ALT/SGPT) Alkaline Phosphatase 96 U/L Total Creatine Kinase 25 U/L Total Protein 6.1 GM/DL Albumin 2.9 GM/DL Culture Results Microbiology Date/Time Procedure Status Source Growth 10/24/16 21:28 Aerobic Blood Culture - Preliminary Resulted Blood Peripheral NO GROWTH IN 1 DAY 10/24/16 21:28 Anaerobic Blood Culture - Preliminary Resulted Gram Positive Rods 10/24/16 21:42 Aerobic Blood Culture - Preliminary Resulted Blood Peripheral NO GROWTH IN 1 DAY 10/24/16 21:42 Anaerobic Blood Culture - Preliminary Resulted Gram Positive Rods 10/24/16 23:18 Influenza Types A,B Antigen (MALINI) - Final Complete Nasal Washing NEGATIVE FOR FLU A AND B ANTIGEN.... Administered Medications Medications (Trade) Dose Ordered Sig/Génesis Route PRN Reason Start Time Stop Time Status Last Admin Dose Admin Acetaminophen (Tylenol) 650 mg Q4H PRN PO TEMP> 100.5F 09/25/16 08:45 10/24/16 20:48 Sodium Chloride (NS Flush) 5 ml UNSCH PRN IVF SEE PROTOCOL 09/25/16 08:45 10/21/16 23:43 Heparin Sodium (Porcine) (Heparin Central Flush) 250 units UNSCH PRN IVF SEE PROTOCOL 09/25/16 08:45 10/21/16 23:43 Sertraline HCl (Zoloft) 50 mg DAILY PO 09/26/16 09:00 10/25/16 10:26 Alteplase, Recombinant 2 mg 2 mg UNSCH PRN IVF SEE LABEL COMMENTS 09/25/16 10:15 10/10/16 09:09 Ondansetron HCl/ Dextrose (Zofran Inj/D5W Inj) 54 ml @ 216 mls/hr Q8H PRN IV PUSH NAUSEA OR VOMITING 09/25/16 10:30 10/24/16 19:13 Docusate Sodium (Colace) 100 mg TID PO 09/25/16 18:00 Hold 10/19/16 13:32 Fluconazole (Diflucan) 200 mg DAILY PO 09/27/16 13:00 10/25/16 10:26 Acetaminophen (Tylenol) 650 mg Q4H PRN PO FOR BLOOD PRODUCTS 09/30/16 22:00 10/25/16 13:10 Diphenhydramine HCl (Benadryl) 25 mg Q4H PRN PO FOR BLOOD PRODUCTS 09/30/16 22:00 10/25/16 13:10 Atenolol (Tenormin) 100 mg HS PO 10/14/16 21:00 10/25/16 20:49 Amlodipine Besylate (Norvasc) 5 mg DAILY PO 10/15/16 09:00 10/25/16 10:25 Diazepam (Valium) 5 mg Q12H PRN PO MILD ANXIETY 10/20/16 11:15 10/21/16 01:48 Oxycodone HCl (Roxicodone) 5 mg DAILY PRN PO pain 10/20/16 11:15 10/25/16 20:52 Diazepam 10 mg 10 mg HS PRN PO INSOMNIA 10/21/16 08:30 10/25/16 20:52 Cefepime HCl 2000 mg/Sodium Chloride 100 ml @ 200 mls/hr Q8H IV 10/21/16 11:00 10/26/16 03:30 Metronidazole (Flagyl 500 Mg Inj) 100 ml @ 100 mls/hr Q8H IV 10/21/16 14:00 10/26/16 06:40 Loperamide HCl (Imodium) 2 mg UNSCH PRN PO DIARRHEA 10/22/16 09:00 10/25/16 10:29 Dronabinol 2.5 mg 2.5 mg BID@11,16 PO 10/23/16 11:00 10/24/16 12:39 Daptomycin 700 mg/ Sodium Chloride 100 ml @ 200 mls/hr Q24H IV 10/24/16 23:00 10/25/16 22:25 Micafungin Sodium/ Sodium Chloride (Mycamine Inj/NS Inj) 100 ml @ 100 mls/hr Q24H IV 10/25/16 00:00 10/25/16 23:51 Objective Remarks GENERAL: Middle aged male, lying in bed in no distress. He is in good spirits and awaiting his breakfast tray. SKIN: Warm and dry. port in place, right chest wall, clean dressing in place. No bleeding. HEAD: Normocephalic. EYES: No injection or drainage. NECK: Supple, trachea midline. CARDIOVASCULAR: Regular rate and rhythm RESPIRATORY: Clear throughout. Breathing unlabored. GASTROINTESTINAL: Abdomen soft. Nontender. EXTREMITIES: No cyanosis or edema. NEUROLOGICAL: Awake and alert, moving extremities. Normal speech. Assessment/Plan Problem List: (1) AML (acute myeloid leukemia) Status: Acute Plan: 10/26: D31/12: No new fevers. Continue IV Abx per ID. Pt feeling overall better. Diarrhea is improved. Await count recovery. No transfusion today. 10/25: D30/11: 2 units irradiated platelets today. Continue current IV Abx per ID. Preliminary micro ++gram positive rods 10/24: D29/10. no transfusion. abx per ID. monitor blood pressure with increased Lisinopril. 10/23: D28/9. no transfusion. continue antibiotics. will increase Lisinopril to 20mg PO daily. 10/22: D27/8; 1 unit platelets. continue abx per ID 10/21: D26/7: 1 unit pRBC. CXR 10/20: D25/6. 1 unit platelets and pRBC. stop IVF. wean Adderall 10/19: D24/5 1 unit platelets. last day of chemotherapy 10/18: D23/4. give 2 units pRBC today. monitor for fever 10/17: D22/3. continue CLAG-M. no fever. 10/16: D21/2 Pt tolerated chemo well yesterday. No fevers. Counts OK. No headache. Continue chemo. Monitor counts, fevers. 10/15 D20/1 start second cycle of CLAG-M today. D/W side effects and increase morbidity and mortality with the second cycle. He agreed . I will be OOT . Dr Newell will see him till thursday. 10/14: D19. patient started to receive Clarabine but the pump malfunction causing the chemo to spill on the floor. the chemo is being STAT ordered again and will arrive tomorrow morning. 10/13: bone marrow flow shows 70% blasts. d/w patient, repeating induction with CLAG-M chemotherapy or enrolling in a clinical trial. patient would like to try a second induction with CLAG-M. will give Neupogen today and start tomorrow. 10/12: Mildly tachycardic today in the 110's, but no fever. PRBC x 2 ordered today. 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 Will monitor blood counts, heart rate. Plan for repeat BMB on this upcoming week. 10/11: Spiked a fever this morning to 101.8. Will order blood cultures x 2, check UA. No longer tachycardic. Continue IV Abx. Transfuse 1 unit platelets today. 10/10: afebrile today. tolerating blood and platelet transfusions. will keep in ICU another night as he remains tachycardic. 10/09: bone marrow biopsy today. 1 unit platelets, 2 units pRBC. spiked fever 103F. cefepime started. spoke with ID, who advised me to start Daptomycin and Micafungin. transferred to ICU after becoming tachy in 140s 10/08: day 13. 1 unit platelets. bone marrow biopsy tomorrow. 10/07: flow cytometry results returned showing NPM1 + and FLT3 +. I obtained the original pathology again from to double check and the original FLT3 was NEGATIVE. NPM1 mutation was detected 43.4%, KIT mutation not detected. 46XY 10/06: 2 units pRBC today. plan to do bone marrow biopsy AM. 2: 1 unit platelets today 10/04: D9. no fever. 10/03: D8. no transfusion. monitor for fever 10/02: Will give 1 unit pRBC's, platelets today. Plan for repeat BMB on 10/10. 10/01: Finished chemotherapy yesterday. Tolerated well. 1 unit irradiated PRBC's to be transfused today. Continue to closely monitor blood counts. 09/30: D5. last day of chemotherapy. will give 1 unit platelets. 09/29: D4. continue chemotherapy. no transfusion. 09/28: D3. 09/27: D2 09/26: Start on CLAG-M chemotherapy for relapsed AML. Received Neupogen yesterday. He spiked a fever this afternoon of 101.3. BC, UA, and CXR ordered. Will start pt on Cefepime. Await BC results. --On 09/18 it was noted that he had a white count at 11k and a platelet count of 76k. Blasts were at 38%. He was brought in to the clinic on 09/24 for a bone marrow biopsy. A CBC was done and showed a white count of 63.7, Hgb 12.2, and platelet count was 33K. The blasts were at 73%. Decision was made at that time to admit for salvage chemo. History: 11/04: AML Diagnosis made. 46XY, +NPM1 mutation detected, FLT3 negative-- indicates favorable prognosis. 11/05-11/28: Initial induction with MELL-C and idarubicin (7+3). STAT Leukapheresis due to leukostasis. On D2, repeat bone marrow showed residual leukemia. 12/06-12/27: Re-induction with FLANG chemotherapy. Repeat bone marrow biopsy negative for residual AML. Patient in Complete Remission 01/06-01/10: C1 consolidation chemotherapy with Mell-C. 02/17-02/21: C2 consolidation chemotherapy with MELL-C. 03/25-03/30: C3 consolidation chemotherapy with MELL-C 04/28-05/02: C4 consolidation chemo with MELL-C (2) Nausea Status: Acute Plan: likely due to chemotherapy as well as antibiotics --prn Ondansetron -- prn Reglan (3) Diarrhea Status: Acute Plan: --C. diff negative. --imodium PRN (4) Hypertension Status: Acute Plan: --on amlodipine, lisinopril, atenolol (5) Fever Status: Acute Plan: -- Preliminary ++ BC on 10/24 --> Gram - rods --ID following -- on Daptomycin, Micafungin, Flagyl, Cefepime and Fluconazole (6) DVT prophylaxis Status: Acute Plan: -- Thrombocytopenia; will hold off on chemical prophylaxis at this time. (7) Diabetes Status: Acute Plan: --on SSI Novolog (8) Depression Status: Acute Plan: --on Zoloft Assessment 46 y/o male admitted for salvage chemotherapy for relapsed AML. Attending Statement The exam, history, and the medical decision-making described in the above note were completed with the assistance of the mid-level provider. I reviewed and agree with the findings presented. I attest that I had a [id number] encounter with the patient on the same day, and personally performed and documented my assessment and findings in the medical record. Patient seen and examined, agree with physical exam findings as documented above. Patient remains afebrile, last elevated temperature recorded was on the night of 10/24/2016. Blood cultures continued to show gram-positive rods from 10/24/2016, further characterization pending. He remains on daptomycin, micafungin, cefepime. Cytopenias persist, he responded appropriately to platelet transfusion on 2016. Diarrhea is improving. Appears clinically stable. Await restaging bone marrow biopsy. Problem Qualifiers (1) Diarrhea: Qualified Code: R19.7 - Diarrhea, unspecified type (2) Hypertension: Qualified Code: I10 - Essential hypertension (3) Fever: Qualified Code: R50.9 - Fever, unspecified fever cause (4) Diabetes: Qualified Code: E11.9 - Type 2 diabetes mellitus without complication, without long-term current use of insulin Valarie Lopez Oct 26, 2016 09:35 Morteza Orr MD Oct 26, 2016 10:30
[2016-10-26 09:52] LABS: WBC DIFF SAMPLE 2
[2016-10-26 10:00] LABS: PLATELET ESTIMATE SMEAR LOW (NORMAL); PLATELET MORPHOLOGY NORMAL (NORMAL); SCAN/DIFF FINAL DIFF MANUAL
[2016-10-26] MEDS: INSULIN ASPART SUPPLEMENTAL SCALE SQ SCH ×5 (11:00→22:50)
[2016-10-26] MEDS: LISINOPRIL 10 MG TAB PO SCH (11:19)
[2016-10-26] MEDS: amLODIPine BESYLATE 5 MG TAB PO SCH (11:20)
[2016-10-26] MEDS: FLUCONAZOLE 200 MG TAB PO SCH (11:20)
[2016-10-26] MEDS: SERTRALINE HCL 50 MG TAB PO SCH (11:20)
[2016-10-26] MEDS: DRONABINOL 2.5 MG CAP PO SCH ×2 (11:30→16:00)
[2016-10-26 12:00] VITALS: BP 140/91; PULSE 86; RESP 18; TEMP 98.8; O2SAT 96
[2016-10-26] MEDS: LOPERAMIDE HCL 2 MG CAP PO PRN (14:48)
[2016-10-26 16:00] VITALS: BP 119/73; PULSE 83; RESP 18; TEMP 99.1; O2SAT 99
[2016-10-26 16:24] VITALS: TEMP 97.9
[2016-10-26] MEDS: SODIUM CHLORIDE 0.9% FLUSH 10 ML FLUSH IVF PRN (19:51)
[2016-10-26 20:00] VITALS: BP 119/72; PULSE 85; RESP 17; TEMP 98.9; O2SAT 98
[2016-10-26] MEDS: ATENOLOL 100 MG TAB PO SCH (21:31)
[2016-10-26] MEDS: DAPTOmycin INJ 700 MG in SODIUM CHLORIDE 0.9% INJ 100 ML IV SCH (22:52)
[2016-10-26] MEDS: MICAFUNGIN INJ 150 MG in SODIUM CHLORIDE 0.9% INJ 100 ML IV SCH (23:53)
[2016-10-27] VITALS (7 sets, daily range): BP systolic 111–166; BP diastolic 68–98; PULSE 78–105; RESP 16–20; TEMP 98.3–101.3; O2SAT 96–100
[2016-10-27] MEDS: DIAZEPAM 10 MG TAB PO PRN (01:00)
[2016-10-27] MEDS: CEFEPIME 2000 MG/NS 100 ML IV SCH ×4 (03:19→10:36)
[2016-10-27] MEDS: ACETAMINOPHEN 325 MG TAB PO PRN ×2 (04:26→10:36)
[2016-10-27] MEDS: DAPTOmycin INJ 700 MG in SODIUM CHLORIDE 0.9% INJ 100 ML IV SCH (04:27)
[2016-10-27 05:39] LABS: HEMATOCRIT 23.1 % (39.0-51.0); MEAN CELL VOLUME 78.2 FL (80.0-100.0); MEAN CORPUSCULAR HEMOGLOBIN 28.9 PG (27.0-34.0); RED BLOOD COUNT 2.96 MIL/MM3 (4.50-5.90)
[2016-10-27 05:43] LABS: HEMO FLAGS AUTO DIFF
[2016-10-27 05:44] LABS: PLATELET COUNT 18 TH/MM3 (150-450)
[2016-10-27 05:58] LABS: POTASSIUM 3.6 MEQ/L (3.5-5.1)
[2016-10-27] MEDS: ONDANSETRON INJ 8 MG in DEXTROSE 5% IN WATER INJ 50 ML IV PUSH PRN ×2 (06:03)
[2016-10-27] MEDS: METRONIDAZOLE 500 MG/100 ML ISONTONIC SOLN IV SCH ×2 (06:29→13:47)
[2016-10-27] MEDS ORDERED: METOCLOPRAMIDE HCL 10 MG TAB PO PRN (07:15)
[2016-10-27 07:25] LABS: WBC DIFF SAMPLE 2
[2016-10-27 07:26] LABS: PLATELET ESTIMATE SMEAR LOW (NORMAL); PLATELET MORPHOLOGY NORMAL (NORMAL); ROULEAUX PRESENT (NORMAL); SCAN/DIFF FINAL DIFF MANUAL
[2016-10-27] MEDS: SODIUM CHLORIDE 0.9% FLUSH 10 ML FLUSH IVF PRN ×2 (07:29→20:19)
[2016-10-27 08:00] LABS: BLOOD, URINE NEG (NEG); GLUCOSE,URINE TRACE mg/dL (NEG); KETONE, URINE NEG (NEG); MUCUS URINE FEW /lpf (OCC); NITRITE,URINE NEG (NEG); URINE COLOR YELLOW (YELLW/STRAW)
[2016-10-27] MEDS: FLUCONAZOLE 200 MG TAB PO SCH (10:36)
[2016-10-27] MEDS: LISINOPRIL 10 MG TAB PO SCH (10:36)
[2016-10-27] MEDS: amLODIPine BESYLATE 5 MG TAB PO SCH (10:36)
[2016-10-27] MEDS: SERTRALINE HCL 50 MG TAB PO SCH (10:36)
[2016-10-27] MEDS: DRONABINOL 2.5 MG CAP PO SCH ×2 (10:37→13:11)
[2016-10-27] MEDS: INSULIN ASPART SUPPLEMENTAL SCALE SQ SCH ×4 (10:45→22:06)
--- NOTE | 2016-10-27 13:58 | PD.ONC.PN ---
Subjective Subjective Remarks Tmax 101.3 overnight. Patient has a rash on his face and trunk. He is concerned that he is having an allergic reaction to one of the new antibiotics he was placed on over the weekend for neutropenic fever, Daptomycin and Micafungin. He was refusing to take both until he had a repeat fever this morning and then agreed to take the Daptomycin but continued to refuse the Micafungin. Objective Data Date Time Temp Pulse Resp B/P Pulse Ox O2 Delivery O2 Flow Rate FiO2 10/27/16 08:00 99.4 87 18 111/68 99 10/27/16 04:30 101.3 105 16 166/98 97 10/27/16 00:00 99.0 92 18 147/83 96 10/26/16 20:00 98.9 85 17 119/72 98 10/26/16 16:24 97.9 10/26/16 16:00 99.1 83 18 119/73 99 Result Diagram: 10/27/16 0435 10/27/16 0435 Laboratory Results Laboratory Tests Test 10/27/16 10/27/16 04:35 07:10 White Blood Count 0.0 TH/MM3 Red Blood Count 2.96 MIL/MM3 Hemoglobin 8.5 GM/DL Hematocrit 23.1 % Mean Corpuscular Volume 78.2 FL Mean Corpuscular Hemoglobin 28.9 PG Mean Corpuscular Hemoglobin 37.0 % Concent Red Cell Distribution Width 13.0 % Platelet Count 18 TH/MM3 Mean Platelet Volume 7.8 FL Neutrophils (%) (Auto) % Lymphocytes (%) (Auto) % Monocytes (%) (Auto) % Eosinophils (%) (Auto) % Basophils (%) (Auto) % Neutrophils # (Auto) TH/MM3 Lymphocytes # (Auto) TH/MM3 Monocytes # (Auto) TH/MM3 Eosinophils # (Auto) TH/MM3 Basophils # (Auto) TH/MM3 CBC Comment AUTO DIFF Differential Total Cells 2 Counted Lymphocytes % 100 % Neutrophils # (Manual) 0.0 TH/MM3 Differential Comment FINAL DIFF MANUAL Platelet Estimate LOW Platelet Morphology Comment NORMAL Rouleau PRESENT Sodium Level 135 MEQ/L Potassium Level 3.6 MEQ/L Chloride Level 99 MEQ/L Carbon Dioxide Level 30.0 MEQ/L Anion Gap 6 MEQ/L Blood Urea Nitrogen 8 MG/DL Creatinine 0.39 MG/DL Estimat Glomerular Filtration 236 ML/MIN Rate Random Glucose 134 MG/DL Calcium Level 8.6 MG/DL Urine Color YELLOW Urine Turbidity CLEAR Urine pH 6.0 Urine Specific [place] 1.018 Urine Protein TRACE mg/dL Urine Glucose (UA) TRACE mg/dL Urine Ketones NEG mg/dL Urine Occult Blood NEG Urine Nitrite NEG Urine Bilirubin NEG Urine Urobilinogen LESS THAN 2.0 MG/DL Urine Leukocyte Esterase NEG Urine RBC LESS THAN 1 /hpf Urine WBC 3 /hpf Urine Mucus FEW /lpf Culture Results Microbiology Date/Time Procedure Status Source Growth 10/24/16 21:28 Aerobic Blood Culture - Final Complete Blood Peripheral Lactobacillus Species 10/24/16 21:28 Anaerobic Blood Culture - Final Complete Lactobacillus Species 10/24/16 21:42 Aerobic Blood Culture - Final Complete Blood Peripheral Lactobacillus Species 10/24/16 21:42 Anaerobic Blood Culture - Final Complete Lactobacillus Species 10/24/16 23:18 Influenza Types A,B Antigen (MALINI) - Final Complete Nasal Washing NEGATIVE FOR FLU A AND B ANTIGEN.... 10/27/16 04:35 Aerobic Blood Culture Received Blood Line Pending 10/27/16 04:35 Anaerobic Blood Culture Received Blood Line Pending 10/27/16 07:10 Urine Culture Received Urine Clean Catch Pending Administered Medications Medications (Trade) Dose Ordered Sig/Génesis Route PRN Reason Start Time Stop Time Status Last Admin Dose Admin Acetaminophen (Tylenol) 650 mg Q4H PRN PO TEMP> 100.5F 09/25/16 08:45 10/27/16 10:36 Heparin Sodium (Porcine) (Heparin Central Flush) 500 units UNSCH IVF 09/25/16 08:45 10/27/16 10:46 Sodium Chloride (NS Flush) 5 ml UNSCH PRN IVF SEE PROTOCOL 09/25/16 08:45 10/27/16 07:29 Heparin Sodium (Porcine) (Heparin Central Flush) 250 units UNSCH PRN IVF SEE PROTOCOL 09/25/16 08:45 10/21/16 23:43 Sertraline HCl (Zoloft) 50 mg DAILY PO 09/26/16 09:00 10/27/16 10:36 Alteplase, Recombinant 2 mg 2 mg UNSCH PRN IVF SEE LABEL COMMENTS 09/25/16 10:15 10/10/16 09:09 Ondansetron HCl/ Dextrose (Zofran Inj/D5W Inj) 54 ml @ 216 mls/hr Q8H PRN IV PUSH NAUSEA OR VOMITING 09/25/16 10:30 10/27/16 06:03 Docusate Sodium (Colace) 100 mg TID PO 09/25/16 18:00 Hold 10/19/16 13:32 Fluconazole (Diflucan) 200 mg DAILY PO 09/27/16 13:00 10/27/16 10:36 Acetaminophen (Tylenol) 650 mg Q4H PRN PO FOR BLOOD PRODUCTS 09/30/16 22:00 10/25/16 13:10 Diphenhydramine HCl (Benadryl) 25 mg Q4H PRN PO FOR BLOOD PRODUCTS 09/30/16 22:00 10/25/16 13:10 Atenolol (Tenormin) 100 mg HS PO 10/14/16 21:00 10/26/16 21:31 Amlodipine Besylate (Norvasc) 5 mg DAILY PO 10/15/16 09:00 10/27/16 10:36 Diazepam (Valium) 5 mg Q12H PRN PO MILD ANXIETY 10/20/16 11:15 10/21/16 01:48 Oxycodone HCl (Roxicodone) 5 mg DAILY PRN PO pain 10/20/16 11:15 10/26/16 21:32 Diazepam 10 mg 10 mg HS PRN PO INSOMNIA 10/21/16 08:30 10/27/16 01:00 Cefepime HCl 2000 mg/Sodium Chloride 100 ml @ 200 mls/hr Q8H IV 10/21/16 11:00 10/27/16 10:36 Metronidazole (Flagyl 500 Mg Inj) 100 ml @ 100 mls/hr Q8H IV 10/21/16 14:00 10/27/16 06:29 Loperamide HCl (Imodium) 2 mg UNSCH PRN PO DIARRHEA 10/22/16 09:00 10/26/16 14:48 Dronabinol 2.5 mg 2.5 mg BID@11,16 PO 10/23/16 11:00 10/24/16 12:39 Daptomycin 700 mg/ Sodium Chloride 100 ml @ 200 mls/hr Q24H IV 10/24/16 23:00 10/27/16 04:27 Micafungin Sodium/ Sodium Chloride (Mycamine Inj/NS Inj) 100 ml @ 100 mls/hr Q24H IV 10/25/16 00:00 10/25/16 23:51 Lisinopril (Prinivil) 10 mg DAILY PO 10/26/16 09:00 10/27/16 10:36 Metoclopramide HCl (Reglan) 5 mg Q8H PRN PO NAUSEA 10/27/16 07:15 10/27/16 07:25 Objective Remarks GENERAL: Middle aged male, sitting up in bed, anxious appearing SKIN: Warm and dry. faded red blotchy rash on face and trunk. + dry skin HEAD: Normocephalic. EYES: No injection or drainage. NECK: Supple, trachea midline. CARDIOVASCULAR: Regular rate and rhythm RESPIRATORY: Breath sounds equal bilaterally. No accessory muscle use. GASTROINTESTINAL: Abdomen soft, non-tender, nondistended. EXTREMITIES: No cyanosis NEUROLOGICAL: awake and alert, normal speech. moving all extremities. no obvious focal deficit. Assessment/Plan Problem List: (1) AML (acute myeloid leukemia) Status: Acute Plan: 10/27: D32/13. febrile to 101.3 likely due to refusing Dapto and Micafungin last night. + rash on face and trunk. no transfusion today. 10/26: D31/12: No new fevers. Continue IV Abx per ID. Pt feeling overall better. Diarrhea is improved. Await count recovery. No transfusion today. 10/25: D30/11: 2 units irradiated platelets today. Continue current IV Abx per ID. Preliminary micro ++gram positive rods 10/24: D29/10. no transfusion. abx per ID. monitor blood pressure with increased Lisinopril. 10/23: D28/9. no transfusion. continue antibiotics. will increase Lisinopril to 20mg PO daily. 10/22: D27/8; 1 unit platelets. continue abx per ID 10/21: D26/7: 1 unit pRBC. CXR 10/20: D25/6. 1 unit platelets and pRBC. stop IVF. wean Adderall 10/19: D24/5 1 unit platelets. last day of chemotherapy 10/18: D23/4. give 2 units pRBC today. monitor for fever 10/17: D22/3. continue CLAG-M. no fever. 10/16: D21/2 Pt tolerated chemo well yesterday. No fevers. Counts OK. No headache. Continue chemo. Monitor counts, fevers. 10/15 D2 start second cycle of CLAG-M today. D/W side effects and increase morbidity and mortality with the second cycle. He agreed . I will be OOT . Dr Newell will see him till thursday. 10/14: D19. patient started to receive Clarabine but the pump malfunction causing the chemo to spill on the floor. the chemo is being STAT ordered again and will arrive tomorrow morning. 10/13: bone marrow flow shows 70% blasts. d/w patient, repeating induction with CLAG-M chemotherapy or enrolling in a clinical trial. patient would like to try a second induction with CLAG-M. will give Neupogen today and start tomorrow. 10/12: Mildly tachycardic today in the 110's, but no fever. PRBC x 2 ordered today. 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 Will monitor blood counts, heart rate. Plan for repeat BMB on this upcoming week. 10/11: Spiked a fever this morning to 101.8. Will order blood cultures x 2, check UA. No longer tachycardic. Continue IV Abx. Transfuse 1 unit platelets today. 10/10: afebrile today. tolerating blood and platelet transfusions. will keep in ICU another night as he remains tachycardic. 10/09: bone marrow biopsy today. 1 unit platelets, 2 units pRBC. spiked fever 103F. cefepime started. spoke with ID, who advised me to start Daptomycin and Micafungin. transferred to ICU after becoming tachy in 140s 10/08: day 13. 1 unit platelets. bone marrow biopsy tomorrow. 10/07: flow cytometry results returned showing NPM1 + and FLT3 +. I obtained the original pathology again from to double check and the original FLT3 was NEGATIVE. NPM1 mutation was detected 43.4%, KIT mutation not detected. 46XY 10/06: 2 units pRBC today. plan to do bone marrow biopsy AM. 2: 1 unit platelets today 10/04: D9. no fever. 10/03: D8. no transfusion. monitor for fever 10/02: Will give 1 unit pRBC's, platelets today. Plan for repeat BMB on 10/10. 10/01: Finished chemotherapy yesterday. Tolerated well. 1 unit irradiated PRBC's to be transfused today. Continue to closely monitor blood counts. 09/30: D5. last day of chemotherapy. will give 1 unit platelets. 09/29: D4. continue chemotherapy. no transfusion. 09/28: D3. 09/27: D2 09/26: Start on CLAG-M chemotherapy for relapsed AML. Received Neupogen yesterday. He spiked a fever this afternoon of 101.3. BC, UA, and CXR ordered. Will start pt on Cefepime. Await BC results. --On 09/18 it was noted that he had a white count at 11k and a platelet count of 76k. Blasts were at 38%. He was brought in to the clinic on 09/24 for a bone marrow biopsy. A CBC was done and showed a white count of 63.7, Hgb 12.2, and platelet count was 33K. The blasts were at 73%. Decision was made at that time to admit for salvage chemo. History: 11/04: AML Diagnosis made. 46XY, +NPM1 mutation detected, FLT3 negative-- indicates favorable prognosis. 11/05-11/28: Initial induction with MELL-C and idarubicin (7+3). STAT Leukapheresis due to leukostasis. On D25, repeat bone marrow showed residual leukemia. 12/06-12/27: Re-induction with FLANG chemotherapy. Repeat bone marrow biopsy negative for residual AML. Patient in Complete Remission 01/06-01/10: C1 consolidation chemotherapy with Mell-C. 02/17-02/21: C2 consolidation chemotherapy with MELL-C. 03/25-03/30: C3 consolidation chemotherapy with MELL-C 04/28-05/02: C4 consolidation chemo with MELL-C (2) Nausea Status: Acute Plan: likely due to chemotherapy as well as antibiotics --prn Ondansetron -- prn Reglan (3) Diarrhea Status: Acute Plan: --C. diff negative. --imodium PRN (4) Hypertension Status: Acute Plan: --on amlodipine, lisinopril, atenolol (5) Fever Status: Acute Plan: --BC 4/21 + lactobacillus species. --ID following -- on Daptomycin, Micafungin, Flagyl, Cefepime and Fluconazole (6) DVT prophylaxis Status: Acute Plan: -- Thrombocytopenia; will hold off on chemical prophylaxis at this time. (7) Diabetes Status: Acute Plan: --on SSI Novolog (8) Depression Status: Acute Plan: --on Zoloft Assessment 46 y/o male admitted for salvage chemotherapy for relapsed AML. Attending Statement develop rash face,trunk and upper arms. Feels like burning and prickly. Pt is very upset that inspite of rash he is getting the same antibiotics. D/W Dr Galarza. d/c micafungin and dapto ( both were startred on thursday night) d/c cefepime and flagyl. start zosyn. await BM recovery. Problem Qualifiers (1) Diarrhea: Qualified Code: R19.7 - Diarrhea, unspecified type (2) Hypertension: Qualified Code: I10 - Essential hypertension (3) Fever: Qualified Code: R50.9 - Fever, unspecified fever cause (4) Diabetes: Qualified Code: E11.9 - Type 2 diabetes mellitus without complication, without long-term current use of insulin Janet Holm Oct 27, 2016 13:58 Alexandra Olea MD Oct 28, 2016 07:04
--- NOTE | 2016-10-27 17:31 | HHI.IDPN ---
Subjective Subjective Remarks + fever up to 101 again co burning rash on face, chest , upper and lower extremeties which got better compared to the am No cough, no SOB growing Lactobacillus in 10/07 cultures Antibiotics cefepime, flagyl dapto - last dose received 4 am 10/27 micafungin - last dose received 23 pm 10/26 Allergies: Coded Allergies: Vancomycin (Verified Allergy, Severe, Rash, 04/28/16) Objective . Vital Signs Date Time Temp Pulse Resp B/P Pulse Ox O2 Delivery O2 Flow Rate FiO2 10/27/16 12:00 98.3 16 10/27/16 08:00 99.4 87 18 111/68 99 10/27/16 04:30 101.3 105 16 166/98 97 10/27/16 00:00 99.0 92 18 147/83 96 10/26/16 20:00 98.9 85 17 119/72 98 10/26/16 10/26/16 10/27/16 15:00 23:00 07:00 Intake Total 1040 ml 220 ml Balance 1040 ml 220 ml Intake Oral 720 ml IV Total 320 ml 220 ml # Voids 3 # Bowel Movements 0 . Laboratory Tests Test 10/25/16 10/26/16 10/27/16 20:30 06:37 04:35 White Blood Count 0.0 TH/MM3 0.0 TH/MM3 0.0 TH/MM3 Red Blood Count 2.80 MIL/MM3 2.85 MIL/MM3 2.96 MIL/MM3 Hemoglobin 8.0 GM/DL 8.1 GM/DL 8.5 GM/DL Hematocrit 22.4 % 22.5 % 23.1 % Mean Corpuscular Volume 79.9 FL 79.1 FL 78.2 FL Mean Corpuscular Hemoglobin 28.6 PG 28.5 PG 28.9 PG Mean Corpuscular Hemoglobin 35.8 % 36.0 % 37.0 % Concent Red Cell Distribution Width 13.5 % 13.3 % 13.0 % Platelet Count 29 TH/MM3 24 TH/MM3 18 TH/MM3 Mean Platelet Volume 8.4 FL 7.8 FL 7.8 FL Neutrophils (%) (Auto) % % Lymphocytes (%) (Auto) % % Monocytes (%) (Auto) % % Eosinophils (%) (Auto) % % Basophils (%) (Auto) % % Neutrophils # (Auto) TH/MM3 TH/MM3 Lymphocytes # (Auto) TH/MM3 TH/MM3 Monocytes # (Auto) TH/MM3 TH/MM3 Eosinophils # (Auto) TH/MM3 TH/MM3 Basophils # (Auto) TH/MM3 TH/MM3 CBC Comment AUTO DIFF AUTO DIFF Differential Total Cells 2 2 Counted Lymphocytes % 100 % 100 % Neutrophils # (Manual) 0.0 TH/MM3 0.0 TH/MM3 Differential Comment FINAL DIFF FINAL DIFF MANUAL MANUAL Platelet Estimate LOW LOW Platelet Morphology Comment NORMAL NORMAL Rouleau PRESENT Laboratory Tests Test 10/26/16 10/27/16 06:37 04:35 Sodium Level 137 MEQ/L 135 MEQ/L Potassium Level 3.5 MEQ/L 3.6 MEQ/L Chloride Level 101 MEQ/L 99 MEQ/L Carbon Dioxide Level 30.1 MEQ/L 30.0 MEQ/L Anion Gap 6 MEQ/L 6 MEQ/L Blood Urea Nitrogen 7 MG/DL 8 MG/DL Creatinine 0.37 MG/DL 0.39 MG/DL Estimat Glomerular Filtration 251 ML/MIN 236 ML/MIN Rate Random Glucose 145 MG/DL 134 MG/DL Calcium Level 8.4 MG/DL 8.6 MG/DL Total Bilirubin 0.6 MG/DL Aspartate Amino Transf 7 U/L (AST/SGOT) Alanine Aminotransferase 14 U/L (ALT/SGPT) Alkaline Phosphatase 96 U/L Total Creatine Kinase 25 U/L Total Protein 6.1 GM/DL Albumin 2.9 GM/DL Microbiology Date/Time Procedure Status Source Growth 10/24/16 21:28 Aerobic Blood Culture - Final Complete Blood Peripheral Lactobacillus Species 10/24/16 21:28 Anaerobic Blood Culture - Final Complete Lactobacillus Species 10/24/16 21:42 Aerobic Blood Culture - Final Complete Blood Peripheral Lactobacillus Species 10/24/16 21:42 Anaerobic Blood Culture - Final Complete Lactobacillus Species 10/24/16 23:18 Influenza Types A,B Antigen (MALINI) - Final Complete Nasal Washing NEGATIVE FOR FLU A AND B ANTIGEN.... 10/27/16 04:35 Aerobic Blood Culture Received Blood Line Pending 10/27/16 04:35 Anaerobic Blood Culture Received Blood Line Pending 10/27/16 07:10 Urine Culture Received Urine Clean Catch Pending Imaging Last Impressions Chest X-Ray 10/21/16 0000 Signed Impressions: Service Date/Time: Friday, October 21, 2016 08:48 - CONCLUSION: 1. No acute cardiopulmonary disease. Rashid Carlin MD Head CT 10/14/16 0000 Signed Impressions: Service Date/Time: Friday, October 14, 2016 09:52 - CONCLUSION: 1. No acute intracranial abnormality is identified. 2. Minimal mucoperiosteal thickening in the left maxillary and ethmoid sinus. Eric Collazo MD Physical Exam CONSTITUTIONAL/GENERAL: This is an adequately nourished patient, in no apparent distress. TUBES/LINES/DRAINS: PORT in R chest - site OK SKIN: No jaundice, + diffuse macular papuplae rash most prominent on the face but also scattered arounf upper and lower extremeties and chest Skin temperature appropriate. Not diaphoretic. EYES: Pupils equal and round and reactive. Extraocular motions intact. No scleral icterus. No injection or drainage. Fundi not examined. CARDIOVASCULAR: Regular rate and rhythm without murmurs, gallops, or rubs. RESPIRATORY/CHEST: Symmetric, unlabored respirations. Clear to auscultation. Breath sounds equal bilaterally. No wheezes, rales, or rhonchi. GASTROINTESTINAL: Abdomen soft, non-tender, not distended. No hepato- splenomegaly, or palpable masses. No guarding. Bowel sounds present. MUSCULOSKELETAL: Extremities without clubbing, cyanosis, or edema. NEUROLOGICAL: Awake and alert. Motor and sensory grossly within normal limits. Follows commands. Cognitively sharp. Moves all extremities. PSYCHIATRIC: No obvious anxiety/depression. Assessment & Plan Remarks Leukemia relapse, new chemo tx started sp chemo, persistent neutropenia New neutropenic fever lactobacillus bacteremia Sepsis 2/2 fusobacterou necroforum - resolved ? source oral ulcer Reports adverse reaction to IV vanco in the form of diarrhea, rash also documented - chart reviewewd : in November 2015 he was reeiving vanco last time documented. No reports of rash Diarrhea, C.diff negative New rash - likely on of abx, however with stopping all 4 abx at once will not be possible to pin point which drug cuased it. New drugs include micafunginand daptomycin - dc cefepime, flagyl - start zosyn - monitor for fever - switch to meropenem if cont to have efver - dc daptomyucin - dc micafungin; - repeat BC - if more + BC will need to consider port removal dw hem/onc kelvin Villafuerte from pharmcy dw pt, @ b/s kelvin Galarza,Laura Simms MD Oct 27, 2016 17:31
[2016-10-27] MEDS ORDERED: PIPERACIL-TAZO 3.375 GM PREMIX 50 ML IV SCH (20:00)
[2016-10-27] MEDS: PIPERACIL-TAZO 3.375 GM PREMIX 50 ML IV SCH (20:19)
[2016-10-27] MEDS: ATENOLOL 100 MG TAB PO SCH (21:59)
[2016-10-28] VITALS (10 sets, daily range): BP systolic 104–128; BP diastolic 61–87; PULSE 80–92; RESP 16–19; TEMP 98.4–99.6; O2SAT 95–99
[2016-10-28] MEDS: SODIUM CHLORIDE 0.9% FLUSH 10 ML FLUSH IVF PRN ×5 (00:59→07:17)
[2016-10-28] MEDS: PIPERACIL-TAZO 3.375 GM PREMIX 50 ML IV SCH ×4 (00:59→17:57)
[2016-10-28] MEDS: DIAZEPAM 10 MG TAB PO PRN (01:36)
[2016-10-28 05:03] LABS: MEAN CELL VOLUME 78.6 FL (80.0-100.0); MEAN CORPUSCULAR HEMOGLOBIN 27.9 PG (27.0-34.0); MEAN CORPUSCULAR HGB CONC 35.5 % (32.0-36.0); RED BLOOD COUNT 2.49 MIL/MM3 (4.50-5.90); RED CELL DISTRIBUTION WIDTH 12.9 % (11.6-17.2)
[2016-10-28 06:11] LABS: HEMO FLAGS AUTO DIFF
[2016-10-28 06:12] LABS: HEMATOCRIT 19.5 % (39.0-51.0); PLATELET COUNT 9 TH/MM3 (150-450)
[2016-10-28] MEDS: INSULIN ASPART SUPPLEMENTAL SCALE SQ SCH ×4 (07:00→20:11)
[2016-10-28 07:02] LABS: POLYS (SEG NEUTROPHILS) 0 % (16-70)
[2016-10-28 07:05] LABS: PLATELET ESTIMATE SMEAR RARE (NORMAL); PLATELET MORPHOLOGY NORMAL (NORMAL); SCAN/DIFF FINAL DIFF MANUAL
[2016-10-28] MEDS: LISINOPRIL 10 MG TAB PO SCH (09:50)
[2016-10-28] MEDS: SERTRALINE HCL 50 MG TAB PO SCH (09:50)
[2016-10-28] MEDS: amLODIPine BESYLATE 5 MG TAB PO SCH (09:50)
[2016-10-28] MEDS: diphenhydrAMINE HCL 25 MG CAP PO PRN (09:50)
[2016-10-28] MEDS: FLUCONAZOLE 200 MG TAB PO SCH (09:50)
[2016-10-28] MEDS: ACETAMINOPHEN 325 MG TAB PO PRN (09:51)
[2016-10-28] MEDS: LOPERAMIDE HCL 2 MG CAP PO PRN (09:56)
[2016-10-28] MEDS: DIAZEPAM 5 MG TAB PO PRN (11:03)
--- NOTE | 2016-10-28 12:04 | PD.ONC.PN ---
Subjective Subjective Remarks Afebrile overnight. Patient resting comfortably. Rash persistent, but improved. Patient anxious about multiple family issues. Due to his nausea, he has not been able to take his exjade for the last 6 days. Objective Data Date Time Temp Pulse Resp B/P Pulse Ox O2 Delivery O2 Flow Rate FiO2 10/28/16 11:28 99.5 92 19 123/77 99 10/28/16 11:09 98.4 90 19 120/81 97 10/28/16 10:55 98.4 90 19 120/81 97 10/28/16 10:28 98.8 89 18 120/75 95 10/28/16 08:00 98.7 86 18 104/69 97 10/28/16 04:13 99.6 80 16 115/71 96 10/28/16 00:50 99.5 87 16 114/65 95 10/27/16 20:19 99.0 10/27/16 20:00 98.4 92 18 143/86 100 10/27/16 16:00 98.8 78 20 121/82 100 10/27/16 12:00 98.3 16 10/28/16 10/28/16 10/28/16 07:00 15:00 23:00 Intake Total 60 ml Balance 60 ml Result Diagram: 10/28/16 0420 10/27/16 0435 Laboratory Results Laboratory Tests Test 10/28/16 10/28/16 04:20 06:26 White Blood Count 0.0 TH/MM3 Red Blood Count 2.49 MIL/MM3 Hemoglobin 6.9 GM/DL Hematocrit 19.5 % Mean Corpuscular Volume 78.6 FL Mean Corpuscular Hemoglobin 27.9 PG Mean Corpuscular Hemoglobin 35.5 % Concent Red Cell Distribution Width 12.9 % Platelet Count 9 TH/MM3 Mean Platelet Volume 7.7 FL Neutrophils (%) (Auto) % Lymphocytes (%) (Auto) % Monocytes (%) (Auto) % Eosinophils (%) (Auto) % Basophils (%) (Auto) % Neutrophils # (Auto) TH/MM3 Lymphocytes # (Auto) TH/MM3 Monocytes # (Auto) TH/MM3 Eosinophils # (Auto) TH/MM3 Basophils # (Auto) TH/MM3 CBC Comment AUTO DIFF Neutrophils % (Manual) 0 % Lymphocytes % 0 % Neutrophils # (Manual) 0.0 TH/MM3 Differential Comment FINAL DIFF MANUAL Platelet Estimate RARE Platelet Morphology Comment NORMAL Blood Type O POSITIVE Antibody Screen NEGATIVE Crossmatch Irradiated/Leukocyte-Reduced RBC Blood Bank Comment Culture Results Microbiology Date/Time Procedure Status Source Growth 10/27/16 04:35 Aerobic Blood Culture - Preliminary Resulted Blood Line Pleomorphic Gram Positive Rods 10/27/16 04:35 Anaerobic Blood Culture - Preliminary Resulted Blood Line NO GROWTH IN 1 DAY 10/27/16 07:10 Urine Culture - Preliminary Resulted Urine Clean Catch NO GROWTH IN 24 HOURS. 10/28/16 06:26 Aerobic Blood Culture Received Blood Peripheral Pending 10/28/16 06:26 Anaerobic Blood Culture Received Blood Peripheral Pending Administered Medications Medications (Trade) Dose Ordered Sig/Génesis Route PRN Reason Start Time Stop Time Status Last Admin Dose Admin Acetaminophen (Tylenol) 650 mg Q4H PRN PO TEMP> 100.5F 09/25/16 08:45 10/27/16 10:36 Heparin Sodium (Porcine) (Heparin Central Flush) 500 units UNSCH IVF 09/25/16 08:45 10/27/16 10:46 Sodium Chloride (NS Flush) 5 ml UNSCH PRN IVF SEE PROTOCOL 09/25/16 08:45 10/28/16 07:17 Heparin Sodium (Porcine) (Heparin Central Flush) 250 units UNSCH PRN IVF SEE PROTOCOL 09/25/16 08:45 10/21/16 23:43 Sertraline HCl (Zoloft) 50 mg DAILY PO 09/26/16 09:00 10/28/16 09:50 Alteplase, Recombinant 2 mg 2 mg UNSCH PRN IVF SEE LABEL COMMENTS 09/25/16 10:15 10/10/16 09:09 Ondansetron HCl/ Dextrose (Zofran Inj/D5W Inj) 54 ml @ 216 mls/hr Q8H PRN IV PUSH NAUSEA OR VOMITING 09/25/16 10:30 10/27/16 06:03 Docusate Sodium (Colace) 100 mg TID PO 09/25/16 18:00 Hold 10/19/16 13:32 Fluconazole (Diflucan) 200 mg DAILY PO 09/27/16 13:00 10/28/16 09:50 Acetaminophen (Tylenol) 650 mg Q4H PRN PO FOR BLOOD PRODUCTS 09/30/16 22:00 10/28/16 09:51 Diphenhydramine HCl (Benadryl) 25 mg Q4H PRN PO FOR BLOOD PRODUCTS 09/30/16 22:00 10/28/16 09:50 Atenolol (Tenormin) 100 mg HS PO 10/14/16 21:00 10/27/16 21:59 Amlodipine Besylate (Norvasc) 5 mg DAILY PO 10/15/16 09:00 10/28/16 09:50 Diazepam (Valium) 5 mg Q12H PRN PO MILD ANXIETY 10/20/16 11:15 10/28/16 11:03 Oxycodone HCl (Roxicodone) 5 mg DAILY PRN PO pain 10/20/16 11:15 10/27/16 21:59 Diazepam (Valium) 10 mg HS PRN PO INSOMNIA 10/21/16 08:30 10/28/16 01:36 Loperamide HCl (Imodium) 2 mg UNSCH PRN PO DIARRHEA 10/22/16 09:00 10/28/16 09:56 Lisinopril (Prinivil) 10 mg DAILY PO 10/26/16 09:00 10/28/16 09:50 Metoclopramide HCl 5 mg 5 mg Q8H PRN PO NAUSEA 10/27/16 07:15 10/27/16 07:25 Piperacillin Sod/ Tazobactam Sod (Zosyn 3.375 Gm Premix) 50 ml @ 100 mls/hr Q6H IV 10/27/16 18:00 10/28/16 06:33 Objective Remarks GENERAL: Middle aged male, sitting up in bed in [facility]. SKIN: Warm and dry. erythematous papular rash on face trunk and extremities. port in place, right chest wall, site clean. HEAD: Normocephalic. EYES: No injection or drainage. NECK: Supple, trachea midline. CARDIOVASCULAR: Regular rate and rhythm RESPIRATORY: Breath sounds equal bilaterally. No accessory muscle use. GASTROINTESTINAL: Abdomen soft, non-tender, nondistended. EXTREMITIES: No cyanosis NEUROLOGICAL: aox3. normal speech. independently ambulatory. Assessment/Plan Problem List: (1) AML (acute myeloid leukemia) Status: Acute Plan: 10/28: D33/14: afebrile overnight. currently on Zosyn. persistent rash. has not been able to take exjade d/t nausea. will check ferritin 10/27: D32/13. febrile to 101.3 likely due to refusing Dapto and Micafungin last night. + rash on face and trunk. no transfusion today. 10/26: D31/12: No new fevers. Continue IV Abx per ID. Pt feeling overall better. Diarrhea is improved. Await count recovery. No transfusion today. 10/25: D30/11: 2 units irradiated platelets today. Continue current IV Abx per ID. Preliminary micro ++gram positive rods 10/24: D29/10. no transfusion. abx per ID. monitor blood pressure with increased Lisinopril. 10/23: D28/9. no transfusion. continue antibiotics. will increase Lisinopril to 20mg PO daily. 10/22: D27/8; 1 unit platelets. continue abx per ID 10/21: D26/7: 1 unit pRBC. CXR 10/20: D25/6. 1 unit platelets and pRBC. stop IVF. wean Adderall 10/19: D24/5 1 unit platelets. last day of chemotherapy 10/18: D23/4. give 2 units pRBC today. monitor for fever 10/17: D22/3. continue CLAG-M. no fever. 10/16: D21/2 Pt tolerated chemo well yesterday. No fevers. Counts OK. No headache. Continue chemo. Monitor counts, fevers. 10/15 D20/ start second cycle of CLAG-M today. D/W side effects and increase morbidity and mortality with the second cycle. He agreed . I will be OOT . Dr Newell will see him till thursday. 10/14: D19. patient started to receive Clarabine but the pump malfunction causing the chemo to spill on the floor. the chemo is being STAT ordered again and will arrive tomorrow morning. 10/13: bone marrow flow shows 70% blasts. d/w patient, repeating induction with CLAG-M chemotherapy or enrolling in a clinical trial. patient would like to try a second induction with CLAG-M. will give Neupogen today and start tomorrow. 10/12: Mildly tachycardic today in the 110's, but no fever. PRBC x 2 ordered today. [employer] replacing potassium per protocol for level of 3.2. Will monitor blood counts, heart rate. Plan for repeat BMB on this upcoming week. 10/11: Spiked a fever this morning to 101.8. Will order blood cultures x 2, check UA. No longer tachycardic. Continue IV Abx. Transfuse 1 unit platelets today. 10/10: afebrile today. tolerating blood and platelet transfusions. will keep in ICU another night as he remains tachycardic. 10/09: bone marrow biopsy today. 1 unit platelets, 2 units pRBC. spiked fever 103F. cefepime started. spoke with ID, who advised me to start Daptomycin and Micafungin. transferred to ICU after becoming tachy in 140s 10/08: day 13. 1 unit platelets. bone marrow biopsy tomorrow. 10/07: flow cytometry results returned showing NPM1 + and FLT3 +. I obtained the original pathology again from to double check and the original FLT3 was NEGATIVE. NPM1 mutation was detected 43.4%, KIT mutation not detected. 46XY 10/06: 2 units pRBC today. plan to do bone marrow biopsy AM. 10/05: 1 unit platelets today 10/04: D9. no fever. 10/03: D8. no transfusion. monitor for fever 10/02: Will give 1 unit pRBC's, platelets today. Plan for repeat BMB on 10/10. 10/01: Finished chemotherapy yesterday. Tolerated well. 1 unit irradiated PRBC's to be transfused today. Continue to closely monitor blood counts. 09/30: D5. last day of chemotherapy. will give 1 unit platelets. 09/29: D4. continue chemotherapy. no transfusion. 09/28: D3. 09/27: D2 09/26: Start on CLAG-M chemotherapy for relapsed AML. Received Neupogen yesterday. He spiked a fever this afternoon of 101.3. BC, UA, and CXR ordered. Will start pt on Cefepime. Await BC results. --On 09/18 it was noted that he had a white count at 11k and a platelet count of 76k. Blasts were at 38%. He was brought in to the clinic on 09/24 for a bone marrow biopsy. A CBC was done and showed a white count of 63.7, Hgb 12.2, and platelet count was 33K. The blasts were at 73%. Decision was made at that time to admit for salvage chemo. History: 11/04: AML Diagnosis made. 46XY, +NPM1 mutation detected, FLT3 negative-- indicates favorable prognosis. 11/05-11/28: Initial induction with MELL-C and idarubicin (7+3). STAT Leukapheresis due to leukostasis. On D25, repeat bone marrow showed residual leukemia. 12/06-12/27: Re-induction with FLANG chemotherapy. Repeat bone marrow biopsy negative for residual AML. Patient in Complete Remission 01/06-01/10: C1 consolidation chemotherapy with Mell-C. 02/17-02/21: C2 consolidation chemotherapy with MELL-C. 03/25-03/30: C3 consolidation chemotherapy with MELL-C 04/28-05/02: C4 consolidation chemo with MELL-C (2) Nausea Status: Acute Plan: likely due to chemotherapy as well as antibiotics --prn Ondansetron -- prn Reglan (3) Diarrhea Status: Acute Plan: --C. diff negative. --imodium PRN (4) Hypertension Status: Acute Plan: --on amlodipine, lisinopril, atenolol (5) Fever Status: Acute Plan: --BC 10/24 + lactobacillus species. --ID following -- on Zosyn (6) DVT prophylaxis Status: Acute Plan: -- Thrombocytopenia; will hold off on chemical prophylaxis at this time. (7) Diabetes Status: Acute Plan: --on SSI Novolog (8) Depression Status: Acute Plan: --on Zoloft Assessment 46 y/o male admitted for salvage chemotherapy for relapsed AML. Attending Statement rash is improving, has nausea. afebrile. continue zosyn await BM recovery. Problem Qualifiers (1) Diarrhea: Qualified Code: R19.7 - Diarrhea, unspecified type (2) Hypertension: Qualified Code: I10 - Essential hypertension (3) Fever: Qualified Code: R50.9 - Fever, unspecified fever cause (4) Diabetes: Qualified Code: E11.9 - Type 2 diabetes mellitus without complication, without long-term current use of insulin Janet Holm Oct 28, 2016 12:03 Alexandra Olea MD Oct 29, 2016 06:06
[2016-10-28 15:18] LABS: HEMATOCRIT 22.4 % (39.0-51.0); MEAN CELL VOLUME 78.7 FL (80.0-100.0); MEAN CORPUSCULAR HEMOGLOBIN 27.9 PG (27.0-34.0); MEAN CORPUSCULAR HGB CONC 35.5 % (32.0-36.0); RED BLOOD COUNT 2.85 MIL/MM3 (4.50-5.90); RED CELL DISTRIBUTION WIDTH 13.1 % (11.6-17.2)
[2016-10-28 15:27] LABS: HEMO FLAGS AUTO DIFF
[2016-10-28 15:30] LABS: PLATELET COUNT 18 TH/MM3 (150-450)
[2016-10-28 15:59] LABS: PLATELET ESTIMATE SMEAR LOW (NORMAL); PLATELET MORPHOLOGY NORMAL (NORMAL); POLYS (SEG NEUTROPHILS) 0 % (16-70); SCAN/DIFF AUTO DIFF CONFIRMED
--- NOTE | 2016-10-28 16:16 | HHI.IDPN ---
Subjective Subjective Remarks afebrile feels better rash improving' ambulates in hallway no abd pian no diarrhea Antibiotics zosyn - started 10/28 1999 dapto - last dose received 4 am 10/27 micafungin - last dose received 23 pm 10/26 Allergies: Coded Allergies: Vancomycin (Verified Allergy, Severe, Rash, 04/28/16) Objective . Vital Signs Date Time Temp Pulse Resp B/P Pulse Ox O2 Delivery O2 Flow Rate FiO2 10/28/16 12:00 99.2 81 16 120/69 95 10/28/16 11:28 99.5 92 19 123/77 99 10/28/16 11:09 98.4 90 19 120/81 97 10/28/16 10:55 98.4 90 19 120/81 97 10/28/16 10:28 98.8 89 18 120/75 95 10/28/16 08:00 98.7 86 18 104/69 97 10/28/16 04:13 99.6 80 16 115/71 96 10/28/16 00:50 99.5 87 16 114/65 95 10/27/16 20:19 99.0 10/27/16 20:00 98.4 92 18 143/86 100 10/27/16 10/27/16 10/28/16 15:00 23:00 07:00 Intake Total 2220 ml 60 ml Balance 2220 ml 60 ml Intake Oral 1900 ml IV Total 320 ml 60 ml # Voids 4 # Bowel Movements 1 . Laboratory Tests Test 10/27/16 10/28/16 10/28/16 04:35 04:20 14:25 White Blood Count 0.0 TH/MM3 0.0 TH/MM3 0.0 TH/MM3 Red Blood Count 2.96 MIL/MM3 2.49 MIL/MM3 2.85 MIL/MM3 Hemoglobin 8.5 GM/DL 6.9 GM/DL 8.0 GM/DL Hematocrit 23.1 % 19.5 % 22.4 % Mean Corpuscular Volume 78.2 FL 78.6 FL 78.7 FL Mean Corpuscular Hemoglobin 28.9 PG 27.9 PG 27.9 PG Mean Corpuscular Hemoglobin 37.0 % 35.5 % 35.5 % Concent Red Cell Distribution Width 13.0 % 12.9 % 13.1 % Platelet Count 18 TH/MM3 9 TH/MM3 18 TH/MM3 Mean Platelet Volume 7.8 FL 7.7 FL 6.8 FL Neutrophils (%) (Auto) % % 25.0 % Lymphocytes (%) (Auto) % % 75.0 % Monocytes (%) (Auto) % % 0.0 % Eosinophils (%) (Auto) % % 0.0 % Basophils (%) (Auto) % % 0.0 % Neutrophils # (Auto) TH/MM3 TH/MM3 0.0 TH/MM3 Lymphocytes # (Auto) TH/MM3 TH/MM3 0.0 TH/MM3 Monocytes # (Auto) TH/MM3 TH/MM3 0.0 TH/MM3 Eosinophils # (Auto) TH/MM3 TH/MM3 0.0 TH/MM3 Basophils # (Auto) TH/MM3 TH/MM3 0.0 TH/MM3 CBC Comment AUTO DIFF AUTO DIFF AUTO DIFF Differential Total Cells 2 Counted Lymphocytes % 100 % 0 % 0 % Neutrophils # (Manual) 0.0 TH/MM3 0.0 TH/MM3 0.0 TH/MM3 Differential Comment FINAL DIFF FINAL DIFF AUTO DIFF MANUAL MANUAL CONFIRMED Platelet Estimate LOW RARE LOW Platelet Morphology Comment NORMAL NORMAL NORMAL Rouleau PRESENT Neutrophils % (Manual) 0 % 0 % Monocytes % 0 % Laboratory Tests Test 10/27/16 04:35 Sodium Level 135 MEQ/L Potassium Level 3.6 MEQ/L Chloride Level 99 MEQ/L Carbon Dioxide Level 30.0 MEQ/L Anion Gap 6 MEQ/L Blood Urea Nitrogen 8 MG/DL Creatinine 0.39 MG/DL Estimat Glomerular Filtration 236 ML/MIN Rate Random Glucose 134 MG/DL Calcium Level 8.6 MG/DL Microbiology Date/Time Procedure Status Source Growth 10/27/16 04:35 Aerobic Blood Culture - Preliminary Resulted Blood Line Pleomorphic Gram Positive Rods 10/27/16 04:35 Anaerobic Blood Culture - Preliminary Resulted Blood Line NO GROWTH IN 1 DAY 10/27/16 07:10 Urine Culture - Preliminary Resulted Urine Clean Catch NO GROWTH IN 24 HOURS. 10/28/16 06:26 Aerobic Blood Culture Received Blood Peripheral Pending 10/28/16 06:26 Anaerobic Blood Culture Received Blood Peripheral Pending Imaging Last Impressions Chest X-Ray 10/21/16 0000 Signed Impressions: Service Date/Time: Friday, October 21, 2016 08:48 - CONCLUSION: 1. No acute cardiopulmonary disease. Rashid Carlin MD Head CT 10/14/16 0000 Signed Impressions: Service Date/Time: Friday, October 14, 2016 09:52 - CONCLUSION: 1. No acute intracranial abnormality is identified. 2. Minimal mucoperiosteal thickening in the left maxillary and ethmoid sinus. Eric Collazo MD Physical Exam CONSTITUTIONAL/GENERAL: This is an adequately nourished patient, in no apparent distress. TUBES/LINES/DRAINS: PORT in R chest - site OK SKIN: No jaundice, + diffuse macular papuplae rash most prominent on the face but also scattered arounf upper and lower extremeties and chest - significantly improved since yday not itching Skin temperature appropriate. Not diaphoretic. EYES: Pupils equal and round and reactive. Extraocular motions intact. No scleral icterus. No injection or drainage. Fundi not examined. CARDIOVASCULAR: Regular rate and rhythm without murmurs, gallops, or rubs. RESPIRATORY/CHEST: Symmetric, unlabored respirations. Clear to auscultation. Breath sounds equal bilaterally. No wheezes, rales, or rhonchi. GASTROINTESTINAL: Abdomen soft, non-tender, not distended. No hepato- splenomegaly, or palpable masses. No guarding. Bowel sounds present. MUSCULOSKELETAL: Extremities without clubbing, cyanosis, or edema. NEUROLOGICAL: Awake and alert. Motor and sensory grossly within normal limits. Follows commands. Cognitively sharp. Moves all extremities. PSYCHIATRIC: No obvious anxiety/depression. 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 source oral ulcer Reports adverse reaction to IV vanco in the form of diarrhea, rash also documented - chart reviewewd : in receiving vanco thru December 21 2015 with no reports of rash - Dr Bhatt saw him om 12/21 - NKDA doc'd -no rash - pt reports reciving IV vanco imn [facility] 10/16-10/20 2016 and it was aw diarrhea - with info above no e/o allergic reaction to vanco Diarrhea, C.diff negative New rash - likely on of abx, however with stopping all 4 abx at once will not be possible to pin point which drug cuased it. New drugs include micafunginand daptomycin - resolving -cont zosyn - monitor for fever - switch to meropenem, add vancomycin if cont to have efver - remove vanco from allergy list - fu repeat BC - if more + BC will need to consider port removal kelvin warren pt, @ b/s Laura Galarza MD Oct 28, 2016 16:15 Laura Galarza MD Oct 28, 2016 16:15
[2016-10-28] MEDS: ATENOLOL 100 MG TAB PO SCH (20:16)
[2016-10-28 21:06] LABS: MEAN CORPUSCULAR HGB CONC 37.3 % (32.0-36.0)
[2016-10-29] VITALS (8 sets, daily range): BP systolic 115–150; BP diastolic 74–92; PULSE 76–97; RESP 16–20; TEMP 96.6–100.2; O2SAT 95–100
[2016-10-29] MEDS: PIPERACIL-TAZO 3.375 GM PREMIX 50 ML IV SCH ×5 (00:47→23:41)
[2016-10-29] MEDS: SODIUM CHLORIDE 0.9% FLUSH 10 ML FLUSH IVF PRN ×3 (00:47→04:11)
[2016-10-29] MEDS: DIAZEPAM 10 MG TAB PO PRN ×2 (01:40→20:46)
[2016-10-29 06:11] LABS: MEAN CELL VOLUME 77.6 FL (80.0-100.0); MEAN CORPUSCULAR HEMOGLOBIN 28.9 PG (27.0-34.0); RED BLOOD COUNT 2.55 MIL/MM3 (4.50-5.90); RED CELL DISTRIBUTION WIDTH 13.1 % (11.6-17.2)
[2016-10-29 06:17] LABS: HEMO FLAGS AUTO DIFF
[2016-10-29 06:18] LABS: HEMATOCRIT 19.8 % (39.0-51.0); PLATELET COUNT 13 TH/MM3 (150-450)
[2016-10-29 06:36] LABS: BICARBONATE 31.2 MEQ/L (21.0-32.0)
[2016-10-29] MEDS: diphenhydrAMINE HCL 25 MG CAP PO PRN (08:31)
[2016-10-29] MEDS: ACETAMINOPHEN 325 MG TAB PO PRN (08:32)
[2016-10-29 08:49] LABS: WBC DIFF SAMPLE 1
[2016-10-29 08:50] LABS: PLATELET ESTIMATE SMEAR RARE (NORMAL); PLATELET MORPHOLOGY NORMAL (NORMAL); ROULEAUX PRESENT (NORMAL); SCAN/DIFF FINAL DIFF MANUAL
[2016-10-29] MEDS: INSULIN ASPART SUPPLEMENTAL SCALE SQ SCH ×4 (09:46→20:46)
[2016-10-29] MEDS: LISINOPRIL 10 MG TAB PO SCH (09:46)
[2016-10-29] MEDS: amLODIPine BESYLATE 5 MG TAB PO SCH (09:46)
[2016-10-29] MEDS: FLUCONAZOLE 200 MG TAB PO SCH (09:46)
[2016-10-29] MEDS: SERTRALINE HCL 50 MG TAB PO SCH (09:46)
[2016-10-29] MEDS ORDERED: Vancomycin Consult Pharmacy 1 EA OTHER SCH (11:45)
[2016-10-29] MEDS: VANCOMYCIN INJ 1,750 MG in SODIUM CHLORID 0.9% 500 ML INJ 500 ML IV SCH (13:56)
--- NOTE | 2016-10-29 16:38 | HHI.IDPN ---
Subjective Subjective Remarks fever again vanco restarted no new tera co face flushing no abd pian no diarrhea Antibiotics zosyn - started 10/28 1999 dapto - last dose received 4 am 10/27 micafungin - last dose received 23 pm 10/26 Allergies: Coded Allergies: Vancomycin (Verified Adverse Reaction, Severe, Diarrhea, 10/29/16) Per pt and his record review he uneventfully took IV vancomycin in December 2015. In october 16-2016 he developped severe diarrhea during vancomycin use, no rash per his account. Objective . Vital Signs Date Time Temp Pulse Resp B/P Pulse Ox O2 Delivery O2 Flow Rate FiO2 10/29/16 16:29 98.0 89 18 139/86 96 10/29/16 11:50 96.6 91 20 134/80 99 10/29/16 10:47 98.2 93 18 115/74 98 10/29/16 09:40 100.2 84 18 131/84 99 10/29/16 08:30 98.8 82 16 138/88 100 10/29/16 04:04 98.6 76 16 119/74 95 10/29/16 00:00 98.8 91 18 121/77 98 10/28/16 20:10 99.5 88 18 128/87 97 10/28/16 10/28/16 10/29/16 15:00 23:00 07:00 Intake Total 100 ml 540 ml Balance 100 ml 540 ml Intake Oral 480 ml IV Total 100 ml 60 ml # Voids 2 . Laboratory Tests Test 10/28/16 10/28/16 10/29/16 04:20 14:25 04:10 White Blood Count 0.0 TH/MM3 0.0 TH/MM3 0.0 TH/MM3 Red Blood Count 2.49 MIL/MM3 2.85 MIL/MM3 2.55 MIL/MM3 Hemoglobin 6.9 GM/DL 8.0 GM/DL 7.4 GM/DL Hematocrit 19.5 % 22.4 % 19.8 % Mean Corpuscular Volume 78.6 FL 78.7 FL 77.6 FL Mean Corpuscular Hemoglobin 27.9 PG 27.9 PG 28.9 PG Mean Corpuscular Hemoglobin 35.5 % 35.5 % 37.3 % Concent Red Cell Distribution Width 12.9 % 13.1 % 13.1 % Platelet Count 9 TH/MM3 18 TH/MM3 13 TH/MM3 Mean Platelet Volume 7.7 FL 6.8 FL 7.8 FL Neutrophils (%) (Auto) % 25.0 % % Lymphocytes (%) (Auto) % 75.0 % % Monocytes (%) (Auto) % 0.0 % % Eosinophils (%) (Auto) % 0.0 % % Basophils (%) (Auto) % 0.0 % % Neutrophils # (Auto) TH/MM3 0.0 TH/MM3 TH/MM3 Lymphocytes # (Auto) TH/MM3 0.0 TH/MM3 TH/MM3 Monocytes # (Auto) TH/MM3 0.0 TH/MM3 TH/MM3 Eosinophils # (Auto) TH/MM3 0.0 TH/MM3 TH/MM3 Basophils # (Auto) TH/MM3 0.0 TH/MM3 TH/MM3 CBC Comment AUTO DIFF AUTO DIFF AUTO DIFF Neutrophils % (Manual) 0 % 0 % Lymphocytes % 0 % 0 % 100 % Neutrophils # (Manual) 0.0 TH/MM3 0.0 TH/MM3 0.0 TH/MM3 Differential Comment FINAL DIFF AUTO DIFF FINAL DIFF MANUAL CONFIRMED MANUAL Platelet Estimate RARE LOW RARE Platelet Morphology Comment NORMAL NORMAL NORMAL Monocytes % 0 % Differential Total Cells 1 Counted Rouleau PRESENT Laboratory Tests Test 10/29/16 04:10 Sodium Level 136 MEQ/L Potassium Level 4.0 MEQ/L Chloride Level 98 MEQ/L Carbon Dioxide Level 31.2 MEQ/L Anion Gap 7 MEQ/L Blood Urea Nitrogen 9 MG/DL Creatinine 0.49 MG/DL Estimat Glomerular Filtration 182 ML/MIN Rate Random Glucose 269 MG/DL Calcium Level 8.8 MG/DL Ferritin 1996 NG/ML Microbiology Date/Time Procedure Status Source Growth 10/27/16 04:35 Aerobic Blood Culture - Preliminary Resulted Blood Line Pleomorphic Gram Positive Rods 10/27/16 04:35 Anaerobic Blood Culture - Preliminary Resulted Gram Positive Rods 10/27/16 07:10 Urine Culture - Final Complete Urine Clean Catch NO GROWTH IN 48 HOURS. 10/28/16 06:26 Aerobic Blood Culture - Preliminary Resulted Blood Peripheral NO GROWTH IN 1 DAY 10/28/16 06:26 Anaerobic Blood Culture - Preliminary Resulted Blood Peripheral NO GROWTH IN 1 DAY Imaging Last Impressions Chest X-Ray 10/21/16 0000 Signed Impressions: Service Date/Time: Friday, October 21, 2016 08:48 - CONCLUSION: 1. No acute cardiopulmonary disease. Rashid Carlin MD Head CT 10/14/16 0000 Signed Impressions: Service Date/Time: Friday, October 14, 2016 09:52 - CONCLUSION: 1. No acute intracranial abnormality is identified. 2. Minimal mucoperiosteal thickening in the left maxillary and ethmoid sinus. Eric Collazo MD Physical Exam CONSTITUTIONAL/GENERAL: This is an adequately nourished patient, in no apparent distress. TUBES/LINES/DRAINS: PORT in R chest - site OK SKIN: No jaundice, + diffuse macular papuplae rash most prominent on the face but also scattered arounf upper and lower extremeties and chest -cont to slowly improve + facial flushing Skin temperature appropriate. Not diaphoretic. EYES: Pupils equal and round and reactive. Extraocular motions intact. No scleral icterus. No injection or drainage. Fundi not examined. CARDIOVASCULAR: Regular rate and rhythm without murmurs, gallops, or rubs. RESPIRATORY/CHEST: Symmetric, unlabored respirations. Clear to auscultation. Breath sounds equal bilaterally. No wheezes, rales, or rhonchi. GASTROINTESTINAL: Abdomen soft, non-tender, not distended. No hepato- splenomegaly, or palpable masses. No guarding. Bowel sounds present. MUSCULOSKELETAL: Extremities without clubbing, cyanosis, or edema. NEUROLOGICAL: Awake and alert. Motor and sensory grossly within normal limits. Follows commands. Cognitively sharp. Moves all extremities. PSYCHIATRIC: No obvious anxiety/depression. Assessment & Plan Remarks Leukemia relapse, new chemo tx started sp chemo, persistent neutropenia New neutropenic fever - resolved lactobacillus bacteremia - more positive clx from 10/27 Sepsis / fusobacterou necroforum - resolved ? source oral ulcer Reports adverse reaction to IV vanco in the form of diarrhea, rash also documented - chart reviewewd : in receiving vanco thru December 21 2015 with no reports of rash - Dr Bhatt saw him om 12/21 - NKDA doc'd -no rash - pt reports reciving IV vanco imn COUNTS INCLUDE 234 BEDS AT THE [facility] 10/16-10/20 2016 and it was aw diarrhea - with info above no e/o allergic reaction to vanco Diarrhea, C.diff negative New rash - likely on of abx, however with stopping all 4 abx at once will not be possible to pin point which drug cuased it. New drugs include micafunginand daptomycin - resolving Red man sd to vanco -cont zosyn - monitor for fever - switch to meropenem if cont to have fever despite vanco addition - cont vancomycin, deacrease infusion rate - remove vanco from allergy list - fu repeat BC - if more + BC will need to consider port removal dw Laura Bhatt MD Oct 29, 2016 16:38
--- NOTE | 2016-10-29 17:26 | PD.ONC.PN ---
Subjective Subjective Remarks low grade fever last night. rash is improving. some itching arms and legs. feels down. Objective Data Date Time Temp Pulse Resp B/P Pulse Ox O2 Delivery O2 Flow Rate FiO2 10/29/16 16:29 98.0 89 18 139/86 96 10/29/16 11:50 96.6 91 20 134/80 99 10/29/16 10:47 98.2 93 18 115/74 98 10/29/16 09:40 100.2 84 18 131/84 99 10/29/16 08:30 98.8 82 16 138/88 100 10/29/16 04:04 98.6 76 16 119/74 95 10/29/16 00:00 98.8 91 18 121/77 98 10/28/16 20:10 99.5 88 18 128/87 97 10/29/16 10/29/16 10/29/16 07:00 15:00 23:00 Intake Total 540 ml Balance 540 ml Result Diagram: 10/29/16 0410 10/29/16 0410 Laboratory Results Laboratory Tests Test 10/29/16 10/29/16 04:10 06:54 White Blood Count 0.0 TH/MM3 Red Blood Count 2.55 MIL/MM3 Hemoglobin 7.4 GM/DL Hematocrit 19.8 % Mean Corpuscular Volume 77.6 FL Mean Corpuscular Hemoglobin 28.9 PG Mean Corpuscular Hemoglobin 37.3 % Concent Red Cell Distribution Width 13.1 % Platelet Count 13 TH/MM3 Mean Platelet Volume 7.8 FL Neutrophils (%) (Auto) % Lymphocytes (%) (Auto) % Monocytes (%) (Auto) % Eosinophils (%) (Auto) % Basophils (%) (Auto) % Neutrophils # (Auto) TH/MM3 Lymphocytes # (Auto) TH/MM3 Monocytes # (Auto) TH/MM3 Eosinophils # (Auto) TH/MM3 Basophils # (Auto) TH/MM3 CBC Comment AUTO DIFF Differential Total Cells 1 Counted Lymphocytes % 100 % Neutrophils # (Manual) 0.0 TH/MM3 Differential Comment FINAL DIFF MANUAL Platelet Estimate RARE Platelet Morphology Comment NORMAL Rouleau PRESENT Sodium Level 136 MEQ/L Potassium Level 4.0 MEQ/L Chloride Level 98 MEQ/L Carbon Dioxide Level 31.2 MEQ/L Anion Gap 7 MEQ/L Blood Urea Nitrogen 9 MG/DL Creatinine 0.49 MG/DL Estimat Glomerular Filtration 182 ML/MIN Rate Random Glucose 269 MG/DL Calcium Level 8.8 MG/DL Ferritin 1996 NG/ML Blood Type O POSITIVE Crossmatch Irradiated/Leukocyte-Reduced RBC Blood Bank Comment Culture Results Microbiology Date/Time Procedure Status Source Growth 10/27/16 04:35 Aerobic Blood Culture - Preliminary Resulted Blood Line Pleomorphic Gram Positive Rods 10/27/16 04:35 Anaerobic Blood Culture - Preliminary Resulted Gram Positive Rods 10/27/16 07:10 Urine Culture - Final Complete Urine Clean Catch NO GROWTH IN 48 HOURS. 10/28/16 06:26 Aerobic Blood Culture - Preliminary Resulted Blood Peripheral NO GROWTH IN 1 DAY 10/28/16 06:26 Anaerobic Blood Culture - Preliminary Resulted Blood Peripheral NO GROWTH IN 1 DAY Administered Medications Medications (Trade) Dose Ordered Sig/Génesis Route PRN Reason Start Time Stop Time Status Last Admin Dose Admin Acetaminophen (Tylenol) 650 mg Q4H PRN PO TEMP> 100.5F 09/25/16 08:45 10/27/16 10:36 Heparin Sodium (Porcine) (Heparin Central Flush) 500 units UNSCH IVF 09/25/16 08:45 10/27/16 10:46 Sodium Chloride (NS Flush) 5 ml UNSCH PRN IVF SEE PROTOCOL 09/25/16 08:45 10/29/16 04:11 Heparin Sodium (Porcine) (Heparin Central Flush) 250 units UNSCH PRN IVF SEE PROTOCOL 09/25/16 08:45 10/21/16 23:43 Sertraline HCl (Zoloft) 50 mg DAILY PO 09/26/16 09:00 10/29/16 09:46 Alteplase, Recombinant 2 mg 2 mg UNSCH PRN IVF SEE LABEL COMMENTS 09/25/16 10:15 10/10/16 09:09 Ondansetron HCl/ Dextrose (Zofran Inj/D5W Inj) 54 ml @ 216 mls/hr Q8H PRN IV PUSH NAUSEA OR VOMITING 09/25/16 10:30 10/27/16 06:03 Docusate Sodium (Colace) 100 mg TID PO 09/25/16 18:00 Hold 10/19/16 13:32 Fluconazole (Diflucan) 200 mg DAILY PO 09/27/16 13:00 10/29/16 09:46 Acetaminophen (Tylenol) 650 mg Q4H PRN PO FOR BLOOD PRODUCTS 09/30/16 22:00 10/29/16 08:32 Diphenhydramine HCl (Benadryl) 25 mg Q4H PRN PO FOR BLOOD PRODUCTS 09/30/16 22:00 10/29/16 08:31 Atenolol (Tenormin) 100 mg HS PO 10/14/16 21:00 10/28/16 20:16 Amlodipine Besylate (Norvasc) 5 mg DAILY PO 10/15/16 09:00 10/29/16 09:46 Diazepam (Valium) 5 mg Q12H PRN PO MILD ANXIETY 10/20/16 11:15 10/28/16 11:03 Oxycodone HCl (Roxicodone) 5 mg DAILY PRN PO pain 10/20/16 11:15 10/28/16 20:16 Diazepam (Valium) 10 mg HS PRN PO INSOMNIA 10/21/16 08:30 10/29/16 01:40 Loperamide HCl (Imodium) 2 mg UNSCH PRN PO DIARRHEA 10/22/16 09:00 10/28/16 09:56 Lisinopril (Prinivil) 10 mg DAILY PO 10/26/16 09:00 10/29/16 09:46 Metoclopramide HCl 5 mg 5 mg Q8H PRN PO NAUSEA 10/27/16 07:15 10/27/16 07:25 Piperacillin Sod/ Tazobactam Sod 50 ml @ 100 mls/hr Q6H IV 10/27/16 18:00 10/29/16 13:00 Vancomycin HCl/ Sodium Chloride (Vancomycin Inj/ NS 500 ml Inj) 517.5 ml @ 250 mls/hr Q12H IV 10/29/16 14:00 10/29/16 13:56 Objective Remarks GENERAL: Well-nourished, well-developed patient. SKIN: Warm and dry. Redness of face. HEAD: Normocephalic. EYES: No scleral icterus. No injection or drainage. NECK: Supple, trachea midline. No JVD or lymphadenopathy. LYMPHATIC: No adenopathy. CARDIOVASCULAR: Regular rate and rhythm without murmurs. RESPIRATORY: Breath sounds equal bilaterally. No accessory muscle use. GASTROINTESTINAL: Abdomen soft, non-tender, nondistended. EXTREMITIES: No cyanosis, or edema. NEUROLOGICAL: No obvious focal deficit. Awake, alert, and oriented x3. Assessment/Plan Problem List: (1) AML (acute myeloid leukemia) Status: Acute Plan: 10/29 PRBC and plat today D/W Dr corona regarding antibiotics. 10/28: D33/14: afebrile overnight. currently on Zosyn. persistent rash. has not been able to take exjade d/t nausea. will check ferritin 10/27: D32/13. febrile to 101.3 likely due to refusing Dapto and Micafungin last night. + rash on face and trunk. no transfusion today. 10/26: D31/12: No new fevers. Continue IV Abx per ID. Pt feeling overall better. Diarrhea is improved. Await count recovery. No transfusion today. 10/25: D30/11: 2 units irradiated platelets today. Continue current IV Abx per ID. Preliminary micro ++gram positive rods 10/24: D29/10. no transfusion. abx per ID. monitor blood pressure with increased Lisinopril. 10/23: D28/9. no transfusion. continue antibiotics. will increase Lisinopril to 20mg PO daily. 10/22: D27/8; 1 unit platelets. continue abx per ID 10/21: D26/7: 1 unit pRBC. CXR 10/20: D25/6. 1 unit platelets and pRBC. stop IVF. wean Adderall 10/19: D24/5 1 unit platelets. last day of chemotherapy 10/18: D23/4. give 2 units pRBC today. monitor for fever 10/17: D22/3. continue CLAG-M. no fever. 10/16: D21/2 Pt tolerated chemo well yesterday. No fevers. Counts OK. No headache. Continue chemo. Monitor counts, fevers. 10/15 D20/1 start second cycle of CLAG-M today. D/W side effects and increase morbidity and mortality with the second cycle. He agreed . I will be OOT . Dr Newell will see him till thursday. 10/14: D19. patient started to receive Clarabine but the pump malfunction causing the chemo to spill on the floor. the chemo is being STAT ordered again and will arrive tomorrow morning. 10/13: bone marrow flow shows 70% blasts. d/w patient, repeating induction with CLAG-M chemotherapy or enrolling in a clinical trial. patient would like to try a second induction with CLAG-M. will give Neupogen today and start tomorrow. 10/12: Mildly tachycardic today in the 110's, but no fever. PRBC x 2 ordered today. [employer] replacing potassium per protocol for level of 3.2. Will monitor blood counts, heart rate. Plan for repeat BMB on this upcoming week. 10/11: Spiked a fever this morning to 101.8. Will order blood cultures x 2, check UA. No longer tachycardic. Continue IV Abx. Transfuse 1 unit platelets today. 10/10: afebrile today. tolerating blood and platelet transfusions. will keep in ICU another night as he remains tachycardic. 10/09: bone marrow biopsy today. 1 unit platelets, 2 units pRBC. spiked fever 103F. cefepime started. spoke with ID, who advised me to start Daptomycin and Micafungin. transferred to ICU after becoming tachy in 140s 10/08: day 13. 1 unit platelets. bone marrow biopsy tomorrow. 10/07: flow cytometry results returned showing NPM1 + and FLT3 +. I obtained the original pathology again from to double check and the original FLT3 was NEGATIVE. NPM1 mutation was detected 43.4%, KIT mutation not detected. 46XY 10/06: 2 units pRBC today. plan to do bone marrow biopsy AM. 42: 1 unit platelets today 10/04: D9. no fever. 10/03: D8. no transfusion. monitor for fever 10/02: Will give 1 unit pRBC's, platelets today. Plan for repeat BMB on 10/10. 10/01: Finished chemotherapy yesterday. Tolerated well. 1 unit irradiated PRBC's to be transfused today. Continue to closely monitor blood counts. 09/30: D5. last day of chemotherapy. will give 1 unit platelets. 09/29: D4. continue chemotherapy. no transfusion. 09/28: D3. 09/27: D2 09/26: Start on CLAG-M chemotherapy for relapsed AML. Received Neupogen yesterday. He spiked a fever this afternoon of 101.3. BC, UA, and CXR ordered. Will start pt on Cefepime. Await BC results. --On 09/18 it was noted that he had a white count at 11k and a platelet count of 76k. Blasts were at 38%. He was brought in to the clinic on 09/24 for a bone marrow biopsy. A CBC was done and showed a white count of 63.7, Hgb 12.2, and platelet count was 33K. The blasts were at 73%. Decision was made at that time to admit for salvage chemo. History: 11/04: AML Diagnosis made. 46XY, +NPM1 mutation detected, FLT3 negative-- indicates favorable prognosis. 11/05-11/28: Initial induction with MELL-C and idarubicin (7+3). STAT Leukapheresis due to leukostasis. On D2, repeat bone marrow showed residual leukemia. 12/06-12/27: Re-induction with FLANG chemotherapy. Repeat bone marrow biopsy negative for residual AML. Patient in Complete Remission 01/06-01/10: C1 consolidation chemotherapy with Mell-C. 02/17-02/21: C2 consolidation chemotherapy with MELL-C. 03/25-03/30: C3 consolidation chemotherapy with MELL-C 04/28-05/02: C4 consolidation chemo with MELL-C (2) Nausea Status: Acute Plan: likely due to chemotherapy as well as antibiotics --prn Ondansetron -- prn Reglan (3) Diarrhea Status: Acute Plan: --C. diff negative. --imodium PRN (4) Hypertension Status: Acute Plan: --on amlodipine, lisinopril, atenolol (5) Fever Status: Acute Plan: --BC 10/24 + lactobacillus species. --ID following -- on Zosyn (6) DVT prophylaxis Status: Acute Plan: -- Thrombocytopenia; will hold off on chemical prophylaxis at this time. (7) Diabetes Status: Acute Plan: --on SSI Novolog (8) Depression Status: Acute Plan: --on Zoloft Assessment 46 y/o male admitted for salvage chemotherapy for relapsed AML. Problem Qualifiers (1) Diarrhea: Qualified Code: R19.7 - Diarrhea, unspecified type (2) Hypertension: Qualified Code: I10 - Essential hypertension (3) Fever: Qualified Code: R50.9 - Fever, unspecified fever cause (4) Diabetes: Qualified Code: E11.9 - Type 2 diabetes mellitus without complication, without long-term current use of insulin Alexandra Olea MD Oct 29, 2016 17:26
[2016-10-29] MEDS: ATENOLOL 100 MG TAB PO SCH (20:41)
[2016-10-29 21:06] LABS: MEAN CORPUSCULAR HGB CONC 36.6 % (32.0-36.0)
[2016-10-30] VITALS: BP 137/87; PULSE 90; RESP 18; TEMP 99.3; O2SAT 97
[2016-10-30] MEDS: VANCOMYCIN INJ 1,750 MG in SODIUM CHLORID 0.9% 500 ML INJ 500 ML IV SCH ×2 (01:27→13:41)
[2016-10-30 04:00] VITALS: BP 99/62; PULSE 83; RESP 16; TEMP 98.3; O2SAT 97
[2016-10-30 06:48] LABS: HEMATOCRIT 21.1 % (39.0-51.0); MEAN CORPUSCULAR HEMOGLOBIN 28.5 PG (27.0-34.0); PLATELET COUNT 22 TH/MM3 (150-450); RED BLOOD COUNT 2.71 MIL/MM3 (4.50-5.90)
[2016-10-30 07:02] LABS: HEMO FLAGS AUTO DIFF
[2016-10-30 07:50] VITALS: BP 134/85; PULSE 87; RESP 20; TEMP 97.7; O2SAT 94
[2016-10-30] MEDS: INSULIN ASPART SUPPLEMENTAL SCALE SQ SCH ×4 (07:50→21:24)
[2016-10-30] MEDS: PIPERACIL-TAZO 3.375 GM PREMIX 50 ML IV SCH ×4 (07:52→23:56)
[2016-10-30 08:25] LABS: POLYS (SEG NEUTROPHILS) 0 % (16-70); WBC DIFF SAMPLE 1
[2016-10-30 08:28] LABS: PLATELET ESTIMATE SMEAR RARE (NORMAL); PLATELET MORPHOLOGY NORMAL (NORMAL); SCAN/DIFF FINAL DIFF MANUAL
[2016-10-30] MEDS: SERTRALINE HCL 50 MG TAB PO SCH (09:57)
[2016-10-30] MEDS: FLUCONAZOLE 200 MG TAB PO SCH (09:57)
[2016-10-30] MEDS: amLODIPine BESYLATE 5 MG TAB PO SCH (09:57)
[2016-10-30] MEDS: LISINOPRIL 10 MG TAB PO SCH (09:57)
[2016-10-30 11:50] VITALS: BP 115/71; PULSE 86; RESP 20; TEMP 97.4; O2SAT 98
[2016-10-30 15:50] VITALS: BP 138/89; PULSE 87; RESP 20; TEMP 98.7; O2SAT 98
--- NOTE | 2016-10-30 16:31 | HHI.IDPN ---
Subjective Subjective Remarks mo fever rash is better tolerating vanco at a lower rate + diarrhea, 1 liquid BM Antibiotics zosyn vanco Allergies: Coded Allergies: Vancomycin (Verified Adverse Reaction, Severe, Diarrhea, 10/29/16) Per pt and his record review he uneventfully took IV vancomycin in December 2015. In october 16-2016 he developped severe diarrhea during vancomycin use, no rash per his account. Objective . Vital Signs Date Time Temp Pulse Resp B/P Pulse Ox O2 Delivery O2 Flow Rate FiO2 10/30/16 11:50 97.4 86 20 115/71 98 10/30/16 07:50 97.7 87 20 134/85 94 10/30/16 04:00 98.3 83 16 99/62 97 10/30/16 00:00 99.3 90 18 137/87 97 10/29/16 20:30 99.1 97 18 150/92 99 10/29/16 16:29 98.0 89 18 139/86 96 10/29/16 10/29/16 10/30/16 15:00 23:00 07:00 Intake Total 1880 ml 800 ml 240 ml Balance 1880 ml 800 ml 240 ml Intake Oral 1880 ml 800 ml 240 ml # Voids 5 2 1 # Bowel Movements 1 . Laboratory Tests Test 10/29/16 10/30/16 04:10 05:19 White Blood Count 0.0 TH/MM3 0.0 TH/MM3 Red Blood Count 2.55 MIL/MM3 2.71 MIL/MM3 Hemoglobin 7.4 GM/DL 7.7 GM/DL Hematocrit 19.8 % 21.1 % Mean Corpuscular Volume 77.6 FL 78.0 FL Mean Corpuscular Hemoglobin 28.9 PG 28.5 PG Mean Corpuscular Hemoglobin 37.3 % 36.6 % Concent Red Cell Distribution Width 13.1 % 13.0 % Platelet Count 13 TH/MM3 22 TH/MM3 Mean Platelet Volume 7.8 FL 7.8 FL Neutrophils (%) (Auto) % % Lymphocytes (%) (Auto) % % Monocytes (%) (Auto) % % Eosinophils (%) (Auto) % % Basophils (%) (Auto) % % Neutrophils # (Auto) TH/MM3 TH/MM3 Lymphocytes # (Auto) TH/MM3 TH/MM3 Monocytes # (Auto) TH/MM3 TH/MM3 Eosinophils # (Auto) TH/MM3 TH/MM3 Basophils # (Auto) TH/MM3 TH/MM3 CBC Comment AUTO DIFF AUTO DIFF Differential Total Cells 1 1 Counted Lymphocytes % 100 % 100 % Neutrophils # (Manual) 0.0 TH/MM3 0.0 TH/MM3 Differential Comment FINAL DIFF FINAL DIFF MANUAL MANUAL Platelet Estimate RARE RARE Platelet Morphology Comment NORMAL NORMAL Rouleau PRESENT Neutrophils % (Manual) 0 % Laboratory Tests Test 10/29/16 04:10 Sodium Level 136 MEQ/L Potassium Level 4.0 MEQ/L Chloride Level 98 MEQ/L Carbon Dioxide Level 31.2 MEQ/L Anion Gap 7 MEQ/L Blood Urea Nitrogen 9 MG/DL Creatinine 0.49 MG/DL Estimat Glomerular Filtration 182 ML/MIN Rate Random Glucose 269 MG/DL Calcium Level 8.8 MG/DL Ferritin 1996 NG/ML Microbiology Date/Time Procedure Status Source Growth 10/28/16 06:26 Aerobic Blood Culture - Preliminary Resulted Blood Peripheral NO GROWTH IN 2 DAYS 10/28/16 06:26 Anaerobic Blood Culture - Preliminary Resulted Blood Peripheral NO GROWTH IN 2 DAYS 10/29/16 13:51 Aerobic Blood Culture - Preliminary Resulted Blood Peripheral NO GROWTH IN 1 DAY 10/29/16 13:51 Anaerobic Blood Culture - Preliminary Resulted Blood Peripheral NO GROWTH IN 1 DAY 10/29/16 20:28 Aerobic Blood Culture - Preliminary Resulted Blood Peripheral NO GROWTH IN 1 DAY 10/29/16 20:28 Anaerobic Blood Culture - Preliminary Resulted Blood Peripheral NO GROWTH IN 1 DAY Imaging Last Impressions Chest X-Ray 10/21/16 0000 Signed Impressions: Service Date/Time: Friday, October 21, 2016 08:48 - CONCLUSION: 1. No acute cardiopulmonary disease. Rashid aCrlin MD Head CT 10/14/16 0000 Signed Impressions: Service Date/Time: Friday, October 14, 2016 09:52 - CONCLUSION: 1. No acute intracranial abnormality is identified. 2. Minimal mucoperiosteal thickening in the left maxillary and ethmoid sinus. Eric Collazo MD Physical Exam CONSTITUTIONAL/GENERAL: This is an adequately nourished patient, in no apparent distress. TUBES/LINES/DRAINS: PORT in R chest - site OK SKIN: No jaundice, + rash is resolving, faint no facial flushing today Skin temperature appropriate. Not diaphoretic. EYES: Pupils equal and round and reactive. Extraocular motions intact. No scleral icterus. No injection or drainage. Fundi not examined. CARDIOVASCULAR: Regular rate and rhythm without murmurs, gallops, or rubs. RESPIRATORY/CHEST: Symmetric, unlabored respirations. Clear to auscultation. Breath sounds equal bilaterally. No wheezes, rales, or rhonchi. GASTROINTESTINAL: Abdomen soft, non-tender, not distended. No hepato- splenomegaly, or palpable masses. No guarding. Bowel sounds present. MUSCULOSKELETAL: Extremities without clubbing, cyanosis, or edema. NEUROLOGICAL: Awake and alert. Motor and sensory grossly within normal limits. Follows commands. Cognitively sharp. Moves all extremities. PSYCHIATRIC: No obvious anxiety/depression. 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
--- NOTE | 2016-10-30 17:30 | PD.ONC.PN ---
Subjective Subjective Remarks feels much better. Redness of face is almost gone. purpuric rash hands and legs improving. poor appetite remains stomach ache after food. Objective Data Date Time Temp Pulse Resp B/P Pulse Ox O2 Delivery O2 Flow Rate FiO2 10/30/16 15:50 98.7 87 20 138/89 98 10/30/16 11:50 97.4 86 20 115/71 98 10/30/16 07:50 97.7 87 20 134/85 94 10/30/16 04:00 98.3 83 16 99/62 97 10/30/16 00:00 99.3 90 18 137/87 97 10/29/16 20:30 99.1 97 18 150/92 99 10/30/16 10/30/16 10/30/16 07:00 15:00 23:00 Intake Total 240 ml 305 ml Balance 240 ml 305 ml Result Diagram: 10/30/16 0519 10/29/16 0410 Laboratory Results Laboratory Tests Test 10/30/16 05:19 White Blood Count 0.0 TH/MM3 Red Blood Count 2.71 MIL/MM3 Hemoglobin 7.7 GM/DL Hematocrit 21.1 % Mean Corpuscular Volume 78.0 FL Mean Corpuscular Hemoglobin 28.5 PG Mean Corpuscular Hemoglobin 36.6 % Concent Red Cell Distribution Width 13.0 % Platelet Count 22 TH/MM3 Mean Platelet Volume 7.8 FL Neutrophils (%) (Auto) % Lymphocytes (%) (Auto) % Monocytes (%) (Auto) % Eosinophils (%) (Auto) % Basophils (%) (Auto) % Neutrophils # (Auto) TH/MM3 Lymphocytes # (Auto) TH/MM3 Monocytes # (Auto) TH/MM3 Eosinophils # (Auto) TH/MM3 Basophils # (Auto) TH/MM3 CBC Comment AUTO DIFF Differential Total Cells 1 Counted Neutrophils % (Manual) 0 % Lymphocytes % 100 % Neutrophils # (Manual) 0.0 TH/MM3 Differential Comment FINAL DIFF MANUAL Platelet Estimate RARE Platelet Morphology Comment NORMAL Culture Results Microbiology Date/Time Procedure Status Source Growth 10/28/16 06:26 Aerobic Blood Culture - Preliminary Resulted Blood Peripheral NO GROWTH IN 2 DAYS 10/28/16 06:26 Anaerobic Blood Culture - Preliminary Resulted Blood Peripheral NO GROWTH IN 2 DAYS 10/29/16 13:51 Aerobic Blood Culture - Preliminary Resulted Blood Peripheral NO GROWTH IN 1 DAY 10/29/16 13:51 Anaerobic Blood Culture - Preliminary Resulted Blood Peripheral NO GROWTH IN 1 DAY 10/29/16 20:28 Aerobic Blood Culture - Preliminary Resulted Blood Peripheral NO GROWTH IN 1 DAY 10/29/16 20:28 Anaerobic Blood Culture - Preliminary Resulted Blood Peripheral NO GROWTH IN 1 DAY Administered Medications Medications (Trade) Dose Ordered Sig/Génesis Route PRN Reason Start Time Stop Time Status Last Admin Dose Admin Acetaminophen (Tylenol) 650 mg Q4H PRN PO TEMP> 100.5F 09/25/16 08:45 10/27/16 10:36 Heparin Sodium (Porcine) (Heparin Central Flush) 500 units UNSCH IVF 09/25/16 08:45 10/27/16 10:46 Sodium Chloride (NS Flush) 5 ml UNSCH PRN IVF SEE PROTOCOL 09/25/16 08:45 10/29/16 04:11 Heparin Sodium (Porcine) (Heparin Central Flush) 250 units UNSCH PRN IVF SEE PROTOCOL 09/25/16 08:45 10/21/16 23:43 Sertraline HCl (Zoloft) 50 mg DAILY PO 09/26/16 09:00 10/30/16 09:57 Alteplase, Recombinant 2 mg 2 mg UNSCH PRN IVF SEE LABEL COMMENTS 09/25/16 10:15 10/10/16 09:09 Ondansetron HCl/ Dextrose (Zofran Inj/D5W Inj) 54 ml @ 216 mls/hr Q8H PRN IV PUSH NAUSEA OR VOMITING 09/25/16 10:30 10/27/16 06:03 Docusate Sodium (Colace) 100 mg TID PO 09/25/16 18:00 Hold 10/19/16 13:32 Fluconazole (Diflucan) 200 mg DAILY PO 09/27/16 13:00 10/30/16 09:57 Acetaminophen (Tylenol) 650 mg Q4H PRN PO FOR BLOOD PRODUCTS 09/30/16 22:00 10/29/16 08:32 Diphenhydramine HCl (Benadryl) 25 mg Q4H PRN PO FOR BLOOD PRODUCTS 09/30/16 22:00 10/29/16 08:31 Atenolol (Tenormin) 100 mg HS PO 10/14/16 21:00 10/29/16 20:41 Amlodipine Besylate (Norvasc) 5 mg DAILY PO 10/15/16 09:00 10/30/16 09:57 Diazepam (Valium) 5 mg Q12H PRN PO MILD ANXIETY 10/20/16 11:15 10/28/16 11:03 Oxycodone HCl (Roxicodone) 5 mg DAILY PRN PO pain 10/20/16 11:15 10/29/16 20:46 Diazepam (Valium) 10 mg HS PRN PO INSOMNIA 10/21/16 08:30 10/29/16 20:46 Loperamide HCl (Imodium) 2 mg UNSCH PRN PO DIARRHEA 10/22/16 09:00 10/28/16 09:56 Lisinopril (Prinivil) 10 mg DAILY PO 10/26/16 09:00 10/30/16 09:57 Metoclopramide HCl 5 mg 5 mg Q8H PRN PO NAUSEA 10/27/16 07:15 10/27/16 07:25 Piperacillin Sod/ Tazobactam Sod 50 ml @ 100 mls/hr Q6H IV 10/27/16 18:00 10/30/16 12:52 Vancomycin HCl/ Sodium Chloride (Vancomycin Inj/ NS 500 ml Inj) 517.5 ml @ 250 mls/hr Q12H IV 10/29/16 14:00 10/30/16 13:41 Objective Remarks GENERAL: Well-nourished, well-developed patient. SKIN: Warm and dry. HEAD: Normocephalic. EYES: No scleral icterus. No injection or drainage. NECK: Supple, trachea midline. No JVD or lymphadenopathy. LYMPHATIC: No adenopathy. CARDIOVASCULAR: Regular rate and rhythm without murmurs. RESPIRATORY: Breath sounds equal bilaterally. No accessory muscle use. GASTROINTESTINAL: Abdomen soft, non-tender, nondistended. EXTREMITIES: No cyanosis, or edema. NEUROLOGICAL: No obvious focal deficit. Awake, alert, and oriented x3. Assessment/Plan Problem List: (1) AML (acute myeloid leukemia) Status: Acute Plan: 10/30 Prbc and plat today. No more fevers Tolerating vanco well so far. Clinically looks much better then yesterday. Extensive d/w pt and . 10/29 PRBC and plat today D/W Dr corona regarding antibiotics. 10/28: D33/14: afebrile overnight. currently on Zosyn. persistent rash. has not been able to take exjade d/t nausea. will check ferritin 10/27: D32/13. febrile to 101.3 likely due to refusing Dapto and Micafungin last night. + rash on face and trunk. no transfusion today. 10/26: D31/12: No new fevers. Continue IV Abx per ID. Pt feeling overall better. Diarrhea is improved. Await count recovery. No transfusion today. 10/25: D30/11: 2 units irradiated platelets today. Continue current IV Abx per ID. Preliminary micro ++gram positive rods 10/24: D29/10. no transfusion. abx per ID. monitor blood pressure with increased Lisinopril. 10/23: D28/9. no transfusion. continue antibiotics. will increase Lisinopril to 20mg PO daily. 10/22: D27/8; 1 unit platelets. continue abx per ID 10/21: D26/7: 1 unit pRBC. CXR 10/20: D25/6. 1 unit platelets and pRBC. stop IVF. wean Adderall 10/19: D24/5 1 unit platelets. last day of chemotherapy 10/18: D23/4. give 2 units pRBC today. monitor for fever 10/17: D22/3. continue CLAG-M. no fever. 10/16: D21/2 Pt tolerated chemo well yesterday. No fevers. Counts OK. No headache. Continue chemo. Monitor counts, fevers. 10/15 D20 start second cycle of CLAG-M today. D/W side effects and increase morbidity and mortality with the second cycle. He agreed . I will be OOT . Dr Newell will see him till thursday. 10/14: D19. patient started to receive Clarabine but the pump malfunction causing the chemo to spill on the floor. the chemo is being STAT ordered again and will arrive tomorrow morning. 10/13: bone marrow flow shows 70% blasts. d/w patient, repeating induction with CLAG-M chemotherapy or enrolling in a clinical trial. patient would like to try a second induction with CLAG-M. will give Neupogen today and start tomorrow. 10/12: Mildly tachycardic today in the 110's, but no fever. PRBC x 2 ordered today. 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 Will monitor blood counts, heart rate. Plan for repeat BMB on this upcoming week. 10/11: Spiked a fever this morning to 101.8. Will order blood cultures x 2, check UA. No longer tachycardic. Continue IV Abx. Transfuse 1 unit platelets today. 10/10: afebrile today. tolerating blood and platelet transfusions. will keep in ICU another night as he remains tachycardic. 10/09: bone marrow biopsy today. 1 unit platelets, 2 units pRBC. spiked fever 103F. cefepime started. spoke with ID, who advised me to start Daptomycin and Micafungin. transferred to ICU after becoming tachy in 140s 10/08: day 13. 1 unit platelets. bone marrow biopsy tomorrow. 10/07: flow cytometry results returned showing NPM1 + and FLT3 +. I obtained the original pathology again from to double check and the original FLT3 was NEGATIVE. NPM1 mutation was detected 43.4%, KIT mutation not detected. 46XY 10/06: 2 units pRBC today. plan to do bone marrow biopsy AM. 10/05: 1 unit platelets today 10/04: D9. no fever. 10/03: D8. no transfusion. monitor for fever 10/02: Will give 1 unit pRBC's, platelets today. Plan for repeat BMB on 10/10. 10/01: Finished chemotherapy yesterday. Tolerated well. 1 unit irradiated PRBC's to be transfused today. Continue to closely monitor blood counts. 09/30: D5. last day of chemotherapy. will give 1 unit platelets. 09/29: D4. continue chemotherapy. no transfusion. 09/28: D3. 09/27: D2 09/26: Start on CLAG-M chemotherapy for relapsed AML. Received Neupogen yesterday. He spiked a fever this afternoon of 101.3. BC, UA, and CXR ordered. Will start pt on Cefepime. Await BC results. --On 09/18 it was noted that he had a white count at 11k and a platelet count of 76k. Blasts were at 38%. He was brought in to the clinic on 09/24 for a bone marrow biopsy. A CBC was done and showed a white count of 63.7, Hgb 12.2, and platelet count was 33K. The blasts were at 73%. Decision was made at that time to admit for salvage chemo. History: 11/04: AML Diagnosis made. 46XY, +NPM1 mutation detected, FLT3 negative-- indicates favorable prognosis. 11/05-11/28: Initial induction with MELL-C and idarubicin (7+3). STAT Leukapheresis due to leukostasis. On D25, repeat bone marrow showed residual leukemia. 12/06-12/27: Re-induction with FLANG chemotherapy. Repeat bone marrow biopsy negative for residual AML. Patient in Complete Remission 01/06-01/10: C1 consolidation chemotherapy with Mell-C. 02/17-02/21: C2 consolidation chemotherapy with MELL-C. 03/25-03/30: C3 consolidation chemotherapy with MELL-C 04/28-05/02: C4 consolidation chemo with MELL-C (2) Nausea Status: Acute Plan: likely due to chemotherapy as well as antibiotics --prn Ondansetron -- prn Reglan (3) Diarrhea Status: Acute Plan: --C. diff negative. --imodium PRN (4) Hypertension Status: Acute Plan: --on amlodipine, lisinopril, atenolol (5) Fever Status: Acute Plan: --BC 10/24 + lactobacillus species. --ID following -- on Zosyn (6) DVT prophylaxis Status: Acute Plan: -- Thrombocytopenia; will hold off on chemical prophylaxis at this time. (7) Diabetes Status: Acute Plan: --on SSI Novolog (8) Depression Status: Acute Plan: --on Zoloft Assessment 46 y/o male admitted for salvage chemotherapy for relapsed AML. Problem Qualifiers (1) Diarrhea: Qualified Code: R19.7 - Diarrhea, unspecified type (2) Hypertension: Qualified Code: I10 - Essential hypertension (3) Fever: Qualified Code: R50.9 - Fever, unspecified fever cause (4) Diabetes: Qualified Code: E11.9 - Type 2 diabetes mellitus without complication, without long-term current use of insulin Alexandra Olea MD Oct 30, 2016 17:30
[2016-10-30 20:00] VITALS: BP 130/82; PULSE 90; RESP 17; TEMP 98.5; O2SAT 98
[2016-10-30 21:05] LABS: MEAN CORPUSCULAR HGB CONC 37.4 % (32.0-36.0)
[2016-10-30] MEDS: ATENOLOL 100 MG TAB PO SCH (21:18)
[2016-10-30] MEDS: DIAZEPAM 10 MG TAB PO PRN (23:55)
[2016-10-31] VITALS (11 sets, daily range): BP systolic 122–169; BP diastolic 69–97; PULSE 82–105; RESP 16–20; TEMP 96.3–100.6; O2SAT 96–100
[2016-10-31] MEDS ORDERED: PHARMACY ORDERED LAB ONE (01:45)
[2016-10-31] MEDS: VANCOMYCIN INJ 1,750 MG in SODIUM CHLORID 0.9% 500 ML INJ 500 ML IV SCH (02:14)
[2016-10-31] MEDS: PIPERACIL-TAZO 3.375 GM PREMIX 50 ML IV SCH ×3 (06:10→21:27)
[2016-10-31] MEDS: INSULIN ASPART SUPPLEMENTAL SCALE SQ SCH ×4 (07:00→23:22)
[2016-10-31 07:05] LABS: MEAN CELL VOLUME 77.4 FL (80.0-100.0); MEAN CORPUSCULAR HEMOGLOBIN 28.9 PG (27.0-34.0); RED BLOOD COUNT 2.52 MIL/MM3 (4.50-5.90); RED CELL DISTRIBUTION WIDTH 12.7 % (11.6-17.2)
[2016-10-31 07:15] LABS: HEMO FLAGS AUTO DIFF
[2016-10-31 07:18] LABS: HEMATOCRIT 19.5 % (39.0-51.0); PLATELET COUNT 14 TH/MM3 (150-450)
[2016-10-31] MEDS ORDERED: ACETAMINOPHEN 325 MG TAB PO PRN (07:45)
[2016-10-31] MEDS ORDERED: SODIUM CHLOR 0.9% 250 ML INJ 250 ML IV ONE (07:45)
[2016-10-31] MEDS ORDERED: diphenhydrAMINE HCL 25 MG CAP PO PRN (07:45)
[2016-10-31] MEDS: FLUCONAZOLE 200 MG TAB PO SCH (08:00)
[2016-10-31] MEDS: LISINOPRIL 10 MG TAB PO SCH (08:00)
[2016-10-31] MEDS: amLODIPine BESYLATE 5 MG TAB PO SCH (08:01)
[2016-10-31] MEDS: SERTRALINE HCL 50 MG TAB PO SCH (08:01)
[2016-10-31] MEDS: ACETAMINOPHEN 325 MG TAB PO PRN ×2 (08:01→15:05)
[2016-10-31] MEDS: diphenhydrAMINE HCL 25 MG CAP PO PRN ×2 (08:01→15:05)
[2016-10-31 08:19] LABS: POLYS (SEG NEUTROPHILS) 0 % (16-70)
[2016-10-31 08:20] LABS: PLATELET ESTIMATE SMEAR RARE (NORMAL); PLATELET MORPHOLOGY NORMAL (NORMAL); SCAN/DIFF FINAL DIFF MANUAL
[2016-10-31] MEDS ORDERED: VANCOMYCIN INJ 1,750 MG in SODIUM CHLORID 0.9% 500 ML INJ 500 ML IV SCH (10:00)
--- NOTE | 2016-10-31 12:12 | PD.ONC.PN ---
Subjective Subjective Remarks Afebrile overnight. Patient states he is feeling better today, since the vancomycin was started. His rash is improving. No diarrhea. Objective Data Date Time Temp Pulse Resp B/P Pulse Ox O2 Delivery O2 Flow Rate FiO2 10/31/16 09:19 97.7 82 18 127/74 96 10/31/16 08:56 99.0 86 18 128/84 97 10/31/16 08:00 99.0 86 18 128/84 97 10/31/16 06:00 96.3 85 16 122/79 96 10/31/16 00:00 98.2 86 17 128/81 98 10/30/16 20:00 98.5 90 17 130/82 98 10/30/16 15:50 98.7 87 20 138/89 98 Result Diagram: 10/31/16 0600 10/31/16 0600 Laboratory Results Laboratory Tests Test 10/31/16 10/31/16 10/31/16 02:00 06:00 07:34 Vancomycin Level Trough 6.3 MCG/ML White Blood Count 0.0 TH/MM3 Red Blood Count 2.52 MIL/MM3 Hemoglobin 7.3 GM/DL Hematocrit 19.5 % Mean Corpuscular Volume 77.4 FL Mean Corpuscular Hemoglobin 28.9 PG Mean Corpuscular Hemoglobin 37.4 % Concent Red Cell Distribution Width 12.7 % Platelet Count 14 TH/MM3 Mean Platelet Volume 7.3 FL Neutrophils (%) (Auto) % Lymphocytes (%) (Auto) % Monocytes (%) (Auto) % Eosinophils (%) (Auto) % Basophils (%) (Auto) % Neutrophils # (Auto) TH/MM3 Lymphocytes # (Auto) TH/MM3 Monocytes # (Auto) TH/MM3 Eosinophils # (Auto) TH/MM3 Basophils # (Auto) TH/MM3 CBC Comment AUTO DIFF Neutrophils % (Manual) 0 % Lymphocytes % 0 % Neutrophils # (Manual) 0.0 TH/MM3 Differential Comment FINAL DIFF MANUAL Platelet Estimate RARE Platelet Morphology Comment NORMAL Creatinine 0.42 MG/DL Estimat Glomerular Filtration 217 ML/MIN Rate Blood Type O POSITIVE Antibody Screen NEGATIVE Crossmatch Irradiated/Leukocyte-Reduced RBC Blood Bank Comment Culture Results Microbiology Date/Time Procedure Status Source Growth 10/29/16 13:51 Aerobic Blood Culture - Preliminary Resulted Blood Peripheral NO GROWTH IN 2 DAYS 10/29/16 13:51 Anaerobic Blood Culture - Preliminary Resulted Blood Peripheral NO GROWTH IN 2 DAYS 10/29/16 20:28 Aerobic Blood Culture - Preliminary Resulted Blood Peripheral NO GROWTH IN 2 DAYS 10/29/16 20:28 Anaerobic Blood Culture - Preliminary Resulted Blood Peripheral NO GROWTH IN 2 DAYS Administered Medications Medications (Trade) Dose Ordered Sig/Génesis Route PRN Reason Start Time Stop Time Status Last Admin Dose Admin Acetaminophen (Tylenol) 650 mg Q4H PRN PO TEMP> 100.5F 09/25/16 08:45 10/27/16 10:36 Heparin Sodium (Porcine) (Heparin Central Flush) 500 units UNSCH IVF 09/25/16 08:45 10/30/16 20:03 Sodium Chloride (NS Flush) 5 ml UNSCH PRN IVF SEE PROTOCOL 09/25/16 08:45 10/29/16 04:11 Heparin Sodium (Porcine) (Heparin Central Flush) 250 units UNSCH PRN IVF SEE PROTOCOL 09/25/16 08:45 10/21/16 23:43 Sertraline HCl (Zoloft) 50 mg DAILY PO 09/26/16 09:00 10/31/16 08:01 Alteplase, Recombinant 2 mg 2 mg UNSCH PRN IVF SEE LABEL COMMENTS 09/25/16 10:15 10/10/16 09:09 Ondansetron HCl/ Dextrose (Zofran Inj/D5W Inj) 54 ml @ 216 mls/hr Q8H PRN IV PUSH NAUSEA OR VOMITING 09/25/16 10:30 10/27/16 06:03 Docusate Sodium (Colace) 100 mg TID PO 09/25/16 18:00 Hold 10/19/16 13:32 Fluconazole (Diflucan) 200 mg DAILY PO 09/27/16 13:00 10/31/16 08:00 Acetaminophen (Tylenol) 650 mg Q4H PRN PO FOR BLOOD PRODUCTS 09/30/16 22:00 10/31/16 08:01 Diphenhydramine HCl (Benadryl) 25 mg Q4H PRN PO FOR BLOOD PRODUCTS 09/30/16 22:00 10/31/16 08:01 Atenolol (Tenormin) 100 mg HS PO 10/14/16 21:00 10/30/16 21:18 Amlodipine Besylate (Norvasc) 5 mg DAILY PO 10/15/16 09:00 10/31/16 08:01 Diazepam (Valium) 5 mg Q12H PRN PO MILD ANXIETY 10/20/16 11:15 10/28/16 11:03 Oxycodone HCl (Roxicodone) 5 mg DAILY PRN PO pain 10/20/16 11:15 10/30/16 21:19 Diazepam (Valium) 10 mg HS PRN PO INSOMNIA 10/21/16 08:30 10/30/16 23:55 Loperamide HCl (Imodium) 2 mg UNSCH PRN PO DIARRHEA 10/22/16 09:00 10/28/16 09:56 Lisinopril (Prinivil) 10 mg DAILY PO 10/26/16 09:00 10/31/16 08:00 Metoclopramide HCl 5 mg 5 mg Q8H PRN PO NAUSEA 10/27/16 07:15 10/27/16 07:25 Piperacillin Sod/ Tazobactam Sod 50 ml @ 100 mls/hr Q6H IV 10/27/16 18:00 10/31/16 06:10 Vancomycin HCl/ Sodium Chloride (Vancomycin Inj/ NS 500 ml Inj) 517.5 ml @ 250 mls/hr Q8H IV 10/31/16 10:00 10/31/16 10:34 Objective Remarks GENERAL: Middle aged male, sitting up on side of bed SKIN: Warm and dry. fading papular rash noted on extremities and trunk. HEAD: Normocephalic. EYES: No injection or drainage. NECK: Supple, trachea midline. CARDIOVASCULAR: Regular rate and rhythm RESPIRATORY: Breath sounds equal bilaterally. No accessory muscle use. GASTROINTESTINAL: Abdomen soft, non-tender, nondistended. EXTREMITIES: No cyanosis NEUROLOGICAL: awake and alert, normal speech. moving all extremities. facial movements symmetric. Assessment/Plan Problem List: (1) AML (acute myeloid leukemia) Status: Acute Plan: 10/31: D36/. tolerating Vanco and Zosyn. rash improving. tired of being in hospital. 1 unit platelets and 1 unit pRBC today. plan for bone marrow biopsy on Monday 10/30 Prbc and plat today. No more fevers Tolerating vanco well so far.Clinically looks much better then yesterday. Extensive d/w pt and . 10/29 PRBC and plat todayD/W Dr corona regarding antibiotics. 10/28: D33/14: afebrile overnight. currently on Zosyn. persistent rash. has not been able to take exjade d/t nausea. will check ferritin 10/27: D32/13. febrile to 101.3 likely due to refusing Dapto and Micafungin last night. + rash on face and trunk. no transfusion today. 10/26: D3112: No new fevers. Continue IV Abx per ID. Pt feeling overall better. Diarrhea is improved. Await count recovery. No transfusion today. 10/25: D30/11: 2 units irradiated platelets today. Continue current IV Abx per ID. Preliminary micro ++gram positive rods 10/24: D29/10. no transfusion. abx per ID. monitor blood pressure with increased Lisinopril. 10/23: D28/9. no transfusion. continue antibiotics. will increase Lisinopril to 20mg PO daily. 10/22: D27/8; 1 unit platelets. continue abx per ID 10/21: D26/7: 1 unit pRBC. CXR 10/20: D25/6. 1 unit platelets and pRBC. stop IVF. wean Adderall 10/19: D24/5 1 unit platelets. last day of chemotherapy 10/18: D23/4. give 2 units pRBC today. monitor for fever 10/17: D22/3. continue CLAG-M. no fever. 10/16: D21/2 Pt tolerated chemo well yesterday. No fevers. Counts OK. No headache. Continue chemo. Monitor counts, fevers. 10/15 D2 start second cycle of CLAG-M today. D/W side effects and increase morbidity and mortality with the second cycle. He agreed . I will be OOT . Dr Newell will see him till thursday. 10/14: D19. patient started to receive Clarabine but the pump malfunction causing the chemo to spill on the floor. the chemo is being STAT ordered again and will arrive tomorrow morning. 10/13: bone marrow flow shows 70% blasts. d/w patient, repeating induction with CLAG-M chemotherapy or enrolling in a clinical trial. patient would like to try a second induction with CLAG-M. will give Neupogen today and start tomorrow. 10/12: Mildly tachycardic today in the 110's, but no fever. PRBC x 2 ordered today. 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 Will monitor blood counts, heart rate. Plan for repeat BMB on this upcoming week. 10/11: Spiked a fever this morning to 101.8. Will order blood cultures x 2, check UA. No longer tachycardic. Continue IV Abx. Transfuse 1 unit platelets today. 10/10: afebrile today. tolerating blood and platelet transfusions. will keep in ICU another night as he remains tachycardic. 10/09: bone marrow biopsy today. 1 unit platelets, 2 units pRBC. spiked fever 103F. cefepime started. spoke with ID, who advised me to start Daptomycin and Micafungin. transferred to ICU after becoming tachy in 140s 10/08: day 13. 1 unit platelets. bone marrow biopsy tomorrow. 10/07: flow cytometry results returned showing NPM1 + and FLT3 +. I obtained the original pathology again from to double check and the original FLT3 was NEGATIVE. NPM1 mutation was detected 43.4%, KIT mutation not detected. 46XY 10/06: 2 units pRBC today. plan to do bone marrow biopsy AM. 10/05: 1 unit platelets today 10/04: D9. no fever. 10/03: D8. no transfusion. monitor for fever 10/02: Will give 1 unit pRBC's, platelets today. Plan for repeat BMB on 10/10. 10/01: Finished chemotherapy yesterday. Tolerated well. 1 unit irradiated PRBC's to be transfused today. Continue to closely monitor blood counts. 09/30: D5. last day of chemotherapy. will give 1 unit platelets. 09/29: D4. continue chemotherapy. no transfusion. 09/28: D3. 09/27: D2 09/26: Start on CLAG-M chemotherapy for relapsed AML. Received Neupogen yesterday. He spiked a fever this afternoon of 101.3. BC, UA, and CXR ordered. Will start pt on Cefepime. Await BC results. --On 09/18 it was noted that he had a white count at 11k and a platelet count of 76k. Blasts were at 38%. He was brought in to the clinic on 09/24 for a bone marrow biopsy. A CBC was done and showed a white count of 63.7, Hgb 12.2, and platelet count was 33K. The blasts were at 73%. Decision was made at that time to admit for salvage chemo. History: 11/04: AML Diagnosis made. 46XY, +NPM1 mutation detected, FLT3 negative-- indicates favorable prognosis. 11/05-11/28: Initial induction with MELL-C and idarubicin (7+3). STAT Leukapheresis due to leukostasis. On D25, repeat bone marrow showed residual leukemia. 12/06-12/27: Re-induction with FLANG chemotherapy. Repeat bone marrow biopsy negative for residual AML. Patient in Complete Remission 01/06-01/10: C1 consolidation chemotherapy with Mell-C. 02/17-02/21: C2 consolidation chemotherapy with MELL-C. 03/25-03/30: C3 consolidation chemotherapy with MELL-C 04/28-05/02: C4 consolidation chemo with MELL-C (2) Nausea Status: Acute Plan: likely due to chemotherapy as well as antibiotics --prn Ondansetron -- prn Reglan (3) Diarrhea Status: Acute Plan: --C. diff negative. --imodium PRN (4) Hypertension Status: Acute Plan: --on amlodipine, lisinopril, atenolol (5) Fever Status: Acute Plan: --BC 10/24 + lactobacillus species. --ID following -- on Zosyn (6) DVT prophylaxis Status: Acute Plan: -- Thrombocytopenia; will hold off on chemical prophylaxis at this time. (7) Diabetes Status: Acute Plan: --on SSI Novolog (8) Depression Status: Acute Plan: --on Zoloft Assessment 46 y/o male admitted for salvage chemotherapy for relapsed AML. Attending Statement c/o diarrhea Does not like to have vanco q 8 hrs ( seems like i am getting continuos drip ) no more fevers. Will d/w Dr Corona. d/w pt and . Problem Qualifiers (1) Diarrhea: Qualified Code: R19.7 - Diarrhea, unspecified type (2) Hypertension: Qualified Code: I10 - Essential hypertension (3) Fever: Qualified Code: R50.9 - Fever, unspecified fever cause (4) Diabetes: Qualified Code: E11.9 - Type 2 diabetes mellitus without complication, without long-term current use of insulin Janet Holm Oct 31, 2016 12:12 Alexandra Olea MD Oct 31, 2016 15:51
[2016-10-31] MEDS: DIAZEPAM 5 MG TAB PO PRN (15:05)
--- NOTE | 2016-10-31 19:37 | HHI.IDPN ---
Subjective Subjective Remarks febrile co facial flushing even when off vancomycin + liquid diarrhea, but only one BM today Antibiotics zosyn vanco Allergies: Coded Allergies: Vancomycin (Verified Adverse Reaction, Severe, Diarrhea, 10/29/16) Per pt and his record review he uneventfully took IV vancomycin in December 2015. In october 16-2016 he developped severe diarrhea during vancomycin use, no rash per his account. Objective . Vital Signs Date Time Temp Pulse Resp B/P Pulse Ox O2 Delivery O2 Flow Rate FiO2 10/31/16 17:35 99.8 93 20 126/69 98 10/31/16 17:13 100.6 94 20 136/82 97 10/31/16 12:00 97.2 83 16 136/75 96 10/31/16 09:19 97.7 82 18 127/74 96 10/31/16 08:56 99.0 86 18 128/84 97 10/31/16 08:00 99.0 86 18 128/84 97 10/31/16 06:00 96.3 85 16 122/79 96 10/31/16 00:00 98.2 86 17 128/81 98 10/30/16 20:00 98.5 90 17 130/82 98 10/30/16 10/30/16 10/31/16 15:00 23:00 07:00 Intake Total 2045 ml 240 ml 550 ml Balance 2045 ml 240 ml 550 ml Intake Oral 1740 ml 240 ml IV Total 305 ml 550 ml # Voids 5 4 # Bowel Movements 1 0 . Laboratory Tests Test 10/30/16 10/31/16 05:19 06:00 White Blood Count 0.0 TH/MM3 0.0 TH/MM3 Red Blood Count 2.71 MIL/MM3 2.52 MIL/MM3 Hemoglobin 7.7 GM/DL 7.3 GM/DL Hematocrit 21.1 % 19.5 % Mean Corpuscular Volume 78.0 FL 77.4 FL Mean Corpuscular Hemoglobin 28.5 PG 28.9 PG Mean Corpuscular Hemoglobin 36.6 % 37.4 % Concent Red Cell Distribution Width 13.0 % 12.7 % Platelet Count 22 TH/MM3 14 TH/MM3 Mean Platelet Volume 7.8 FL 7.3 FL Neutrophils (%) (Auto) % % Lymphocytes (%) (Auto) % % Monocytes (%) (Auto) % % Eosinophils (%) (Auto) % % Basophils (%) (Auto) % % Neutrophils # (Auto) TH/MM3 TH/MM3 Lymphocytes # (Auto) TH/MM3 TH/MM3 Monocytes # (Auto) TH/MM3 TH/MM3 Eosinophils # (Auto) TH/MM3 TH/MM3 Basophils # (Auto) TH/MM3 TH/MM3 CBC Comment AUTO DIFF AUTO DIFF Differential Total Cells 1 Counted Neutrophils % (Manual) 0 % 0 % Lymphocytes % 100 % 0 % Neutrophils # (Manual) 0.0 TH/MM3 0.0 TH/MM3 Differential Comment FINAL DIFF FINAL DIFF MANUAL MANUAL Platelet Estimate RARE RARE Platelet Morphology Comment NORMAL NORMAL Laboratory Tests Test 10/31/16 06:00 Creatinine 0.42 MG/DL Estimat Glomerular Filtration 217 ML/MIN Rate Microbiology Date/Time Procedure Status Source Growth 10/29/16 13:51 Aerobic Blood Culture - Preliminary Resulted Blood Peripheral NO GROWTH IN 2 DAYS 10/29/16 13:51 Anaerobic Blood Culture - Preliminary Resulted Blood Peripheral NO GROWTH IN 2 DAYS 10/29/16 20:28 Aerobic Blood Culture - Preliminary Resulted Blood Peripheral NO GROWTH IN 2 DAYS 10/29/16 20:28 Anaerobic Blood Culture - Preliminary Resulted Blood Peripheral NO GROWTH IN 2 DAYS Imaging Last Impressions Chest X-Ray 10/21/16 0000 Signed Impressions: Service Date/Time: Friday, October 21, 2016 08:48 - CONCLUSION: 1. No acute cardiopulmonary disease. Rashid Carlin MD Head CT 10/14/16 0000 Signed Impressions: Service Date/Time: Friday, October 14, 2016 09:52 - CONCLUSION: 1. No acute intracranial abnormality is identified. 2. Minimal mucoperiosteal thickening in the left maxillary and ethmoid sinus. Eric Collazo MD Physical Exam CONSTITUTIONAL/GENERAL: This is an adequately nourished patient, in no apparent distress. TUBES/LINES/DRAINS: PORT in R chest - site OK SKIN: No jaundice, rash is nearly completed resolved + facial flushing today Skin temperature appropriate. Not diaphoretic. EYES: Pupils equal and round and reactive. Extraocular motions intact. No scleral icterus. No injection or drainage. Fundi not examined. CARDIOVASCULAR: Regular rate and rhythm without murmurs, gallops, or rubs. RESPIRATORY/CHEST: Symmetric, unlabored respirations. Clear to auscultation. Breath sounds equal bilaterally. No wheezes, rales, or rhonchi. GASTROINTESTINAL: Abdomen soft, non-tender, not distended. No hepato- splenomegaly, or palpable masses. No guarding. Bowel sounds present. MUSCULOSKELETAL: Extremities without clubbing, cyanosis, or edema. NEUROLOGICAL: Awake and alert. Motor and sensory grossly within normal limits. Follows commands. Cognitively sharp. Moves all extremities. PSYCHIATRIC: No obvious anxiety/depression. 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
[2016-10-31] MEDS: ATENOLOL 100 MG TAB PO SCH (21:18)
[2016-10-31] MEDS: VANCOMYCIN INJ 1,500 MG in SODIUM CHLORID 0.9% 500 ML INJ 500 ML IV SCH (23:12)
[2016-10-31] MEDS: DIAZEPAM 10 MG TAB PO PRN (23:16)
[2016-11-01] VITALS (8 sets, daily range): BP systolic 108–154; BP diastolic 69–91; PULSE 84–102; RESP 16–19; TEMP 97.9–102.8; O2SAT 96–99
[2016-11-01] MEDS: PIPERACIL-TAZO 3.375 GM PREMIX 50 ML IV SCH ×2 (03:49→09:00)
[2016-11-01] MEDS: INSULIN ASPART SUPPLEMENTAL SCALE SQ SCH ×4 (04:39→21:58)
[2016-11-01] MEDS: ACETAMINOPHEN 325 MG TAB PO PRN ×3 (04:57→21:45)
[2016-11-01 08:11] LABS: MEAN CORPUSCULAR HGB CONC 36.4 % (32.0-36.0)
[2016-11-01 08:31] LABS: MEAN CELL VOLUME 78.1 FL (80.0-100.0); MEAN CORPUSCULAR HEMOGLOBIN 28.5 PG (27.0-34.0); RED BLOOD COUNT 2.69 MIL/MM3 (4.50-5.90); RED CELL DISTRIBUTION WIDTH 12.9 % (11.6-17.2)
[2016-11-01 08:34] LABS: HEMO FLAGS AUTO DIFF
[2016-11-01 08:36] LABS: PLATELET COUNT 15 TH/MM3 (150-450)
[2016-11-01 08:57] LABS: POTASSIUM 3.8 MEQ/L (3.5-5.1)
[2016-11-01] MEDS: VANCOMYCIN INJ 1,500 MG in SODIUM CHLORID 0.9% 500 ML INJ 500 ML IV SCH (09:18)
[2016-11-01] MEDS: amLODIPine BESYLATE 5 MG TAB PO SCH (09:21)
[2016-11-01] MEDS: FLUCONAZOLE 200 MG TAB PO SCH (09:21)
[2016-11-01] MEDS: SERTRALINE HCL 50 MG TAB PO SCH (09:21)
[2016-11-01] MEDS: LISINOPRIL 10 MG TAB PO SCH (09:21)
[2016-11-01] MEDS ORDERED: ASP: ID consult, note reason in consult order ONE (09:30)
[2016-11-01] MEDS ORDERED: ASP: Documented ESBL, MDR A baumannii or P. aeruginosa ONE (09:30)
--- NOTE | 2016-11-01 09:37 | PD.ONC.PN ---
Subjective Subjective Remarks Tmax 100.7 this morning. Patient is fatigued but denies other symptoms. Denies cough, shortness of breath, urinary pain. He had one loose stool yesterday, no watery stool. He is eating his breakfast this morning. No abdominal pain. Objective Data Date Time Temp Pulse Resp B/P Pulse Ox O2 Delivery O2 Flow Rate FiO2 11/01/16 09:13 98.3 84 18 108/70 98 11/01/16 04:00 100.7 93 19 131/76 96 10/31/16 23:13 99.4 98 20 142/80 97 10/31/16 21:20 99.3 105 17 169/97 98 10/31/16 20:00 98.5 89 18 127/72 100 10/31/16 17:35 99.8 93 20 126/69 98 10/31/16 17:13 100.6 94 20 136/82 97 10/31/16 12:00 97.2 83 16 136/75 96 11/01/16 11/01/16 11/01/16 07:00 15:00 23:00 Intake Total 870 ml Balance 870 ml Result Diagram: 11/01/16 0600 11/01/16 0600 Laboratory Results Laboratory Tests Test 11/01/16 06:00 White Blood Count 0.0 TH/MM3 Red Blood Count 2.69 MIL/MM3 Hemoglobin 7.7 GM/DL Hematocrit 21.0 % Mean Corpuscular Volume 78.1 FL Mean Corpuscular Hemoglobin 28.5 PG Mean Corpuscular Hemoglobin 36.4 % Concent Red Cell Distribution Width 12.9 % Platelet Count 15 TH/MM3 Mean Platelet Volume 7.5 FL Neutrophils (%) (Auto) % Lymphocytes (%) (Auto) % Monocytes (%) (Auto) % Eosinophils (%) (Auto) % Basophils (%) (Auto) % Neutrophils # (Auto) TH/MM3 Lymphocytes # (Auto) TH/MM3 Monocytes # (Auto) TH/MM3 Eosinophils # (Auto) TH/MM3 Basophils # (Auto) TH/MM3 CBC Comment AUTO DIFF Sodium Level 135 MEQ/L Potassium Level 3.8 MEQ/L Chloride Level 97 MEQ/L Carbon Dioxide Level 32.0 MEQ/L Anion Gap 6 MEQ/L Blood Urea Nitrogen 8 MG/DL Creatinine 0.45 MG/DL Estimat Glomerular Filtration 200 ML/MIN Rate Random Glucose 165 MG/DL Calcium Level 9.0 MG/DL Culture Results Date/Time Procedure Status Source Growth 11/01/16 05:00 Aerobic Blood Culture Received Blood Peripheral Pending 11/01/16 05:00 Anaerobic Blood Culture Received Blood Peripheral Pending Microbiology Date/Time Procedure Status Source Growth 10/29/16 13:51 Aerobic Blood Culture - Preliminary Resulted Blood Peripheral NO GROWTH IN 2 DAYS 10/29/16 13:51 Anaerobic Blood Culture - Preliminary Resulted Blood Peripheral NO GROWTH IN 2 DAYS 10/29/16 20:28 Aerobic Blood Culture - Preliminary Resulted Blood Peripheral NO GROWTH IN 2 DAYS 10/29/16 20:28 Anaerobic Blood Culture - Preliminary Resulted Blood Peripheral NO GROWTH IN 2 DAYS 11/01/16 05:00 Aerobic Blood Culture Received Blood Peripheral Pending 11/01/16 05:00 Anaerobic Blood Culture Received Blood Peripheral Pending Administered Medications Medications (Trade) Dose Ordered Sig/Génesis Route PRN Reason Start Time Stop Time Status Last Admin Dose Admin Acetaminophen (Tylenol) 650 mg Q4H PRN PO TEMP> 100.5F 09/25/16 08:45 11/01/16 04:57 Heparin Sodium (Porcine) (Heparin Central Flush) 500 units UNSCH IVF 09/25/16 08:45 10/30/16 20:03 Sodium Chloride (NS Flush) 5 ml UNSCH PRN IVF SEE PROTOCOL 09/25/16 08:45 10/29/16 04:11 Heparin Sodium (Porcine) (Heparin Central Flush) 250 units UNSCH PRN IVF SEE PROTOCOL 09/25/16 08:45 10/21/16 23:43 Sertraline HCl (Zoloft) 50 mg DAILY PO 09/26/16 09:00 11/01/16 09:21 Alteplase, Recombinant 2 mg 2 mg UNSCH PRN IVF SEE LABEL COMMENTS 09/25/16 10:15 10/10/16 09:09 Ondansetron HCl/ Dextrose (Zofran Inj/D5W Inj) 54 ml @ 216 mls/hr Q8H PRN IV PUSH NAUSEA OR VOMITING 09/25/16 10:30 10/27/16 06:03 Docusate Sodium (Colace) 100 mg TID PO 09/25/16 18:00 Hold 10/19/16 13:32 Fluconazole (Diflucan) 200 mg DAILY PO 09/27/16 13:00 11/01/16 09:21 Acetaminophen (Tylenol) 650 mg Q4H PRN PO FOR BLOOD PRODUCTS 09/30/16 22:00 10/31/16 15:05 Diphenhydramine HCl (Benadryl) 25 mg Q4H PRN PO FOR BLOOD PRODUCTS 09/30/16 22:00 10/31/16 15:05 Atenolol (Tenormin) 100 mg HS PO 10/14/16 21:00 10/31/16 21:18 Amlodipine Besylate (Norvasc) 5 mg DAILY PO 10/15/16 09:00 11/01/16 09:21 Diazepam (Valium) 5 mg Q12H PRN PO MILD ANXIETY 10/20/16 11:15 10/31/16 15:05 Oxycodone HCl (Roxicodone) 5 mg DAILY PRN PO pain 10/20/16 11:15 10/31/16 21:25 Diazepam (Valium) 10 mg HS PRN PO INSOMNIA 10/21/16 08:30 10/31/16 23:16 Loperamide HCl (Imodium) 2 mg UNSCH PRN PO DIARRHEA 10/22/16 09:00 10/28/16 09:56 Lisinopril (Prinivil) 10 mg DAILY PO 10/26/16 09:00 11/01/16 09:21 Metoclopramide HCl 5 mg 5 mg Q8H PRN PO NAUSEA 10/27/16 07:15 10/27/16 07:25 Piperacillin Sod/ Tazobactam Sod 50 ml @ 100 mls/hr Q6H IV 10/31/16 21:00 11/01/16 03:49 Vancomycin HCl/ Sodium Chloride (Vancomycin Inj/ NS 500 ml Inj) 515 ml @ 250 mls/hr Q12H IV 10/31/16 22:00 11/01/16 09:18 Objective Remarks GENERAL: Pleasant fatigued male, sitting up in chair next to bed eating breakfast. SKIN: Warm and dry. papular rash almost completely gone, a few papules left on extremities. port in place, right chest wall HEAD: Normocephalic. EYES: No injection or drainage. NECK: Supple, trachea midline. CARDIOVASCULAR: Regular rate and rhythm RESPIRATORY: Breath sounds equal bilaterally. No accessory muscle use. GASTROINTESTINAL: Abdomen soft, non-tender, nondistended. EXTREMITIES: No cyanosis NEUROLOGICAL: aox3. no obvious focal deficit. normal speech. Assessment/Plan Problem List: (1) AML (acute myeloid leukemia) Status: Acute Plan: 11/01: D37/18. spiked fever of 100.[address] Corona, ID advised to stop Zosyn, start Meropenem and continue Vanco. 10/31: D36/17. tolerating Vanco and Zosyn. rash improving. tired of being in hospital. 1 unit platelets and 1 unit pRBC today. plan for bone marrow biopsy on Monday 10/30 Prbc and plat today. No more fevers Tolerating vanco well so far.Clinically looks much better then yesterday. Extensive d/w pt and . 10/29 PRBC and plat todayD/W Dr corona regarding antibiotics. 10/28: D33/14: afebrile overnight. currently on Zosyn. persistent rash. has not been able to take exjade d/t nausea. will check ferritin 10/27: D32/13. febrile to 101.3 likely due to refusing Dapto and Micafungin last night. + rash on face and trunk. no transfusion today. 10/26: D31/12: No new fevers. Continue IV Abx per ID. Pt feeling overall better. Diarrhea is improved. Await count recovery. No transfusion today. 10/25: D30/11: 2 units irradiated platelets today. Continue current IV Abx per ID. Preliminary micro ++gram positive rods 10/24: D29/10. no transfusion. abx per ID. monitor blood pressure with increased Lisinopril. 10/23: D28/9. no transfusion. continue antibiotics. will increase Lisinopril to 20mg PO daily. 10/22: D27/8; 1 unit platelets. continue abx per ID 10/21: D26/7: 1 unit pRBC. CXR 10/20: D25/6. 1 unit platelets and pRBC. stop IVF. wean Adderall 10/19: D24/5 1 unit platelets. last day of chemotherapy 10/18: D23/4. give 2 units pRBC today. monitor for fever 10/17: D22/3. continue CLAG-M. no fever. 4/13: D21/2 Pt tolerated chemo well yesterday. No fevers. Counts OK. No headache. Continue chemo. Monitor counts, fevers. 10/15 D2 start second cycle of CLAG-M today. D/W side effects and increase morbidity and mortality with the second cycle. He agreed . I will be OOT . Dr Newell will see him till thursday. 10/14: D19. patient started to receive Clarabine but the pump malfunction causing the chemo to spill on the floor. the chemo is being STAT ordered again and will arrive tomorrow morning. 10/13: bone marrow flow shows 70% blasts. d/w patient, repeating induction with CLAG-M chemotherapy or enrolling in a clinical trial. patient would like to try a second induction with CLAG-M. will give Neupogen today and start tomorrow. 10/12: Mildly tachycardic today in the 110's, but no fever. PRBC x 2 ordered today. [employer] replacing potassium per protocol for level of 3.2. Will monitor blood counts, heart rate. Plan for repeat BMB on this upcoming week. 10/11: Spiked a fever this morning to 101.8. Will order blood cultures x 2, check UA. No longer tachycardic. Continue IV Abx. Transfuse 1 unit platelets today. 10/10: afebrile today. tolerating blood and platelet transfusions. will keep in ICU another night as he remains tachycardic. 10/09: bone marrow biopsy today. 1 unit platelets, 2 units pRBC. spiked fever 103F. cefepime started. spoke with ID, who advised me to start Daptomycin and Micafungin. transferred to ICU after becoming tachy in 140s 10/08: day 13. 1 unit platelets. bone marrow biopsy tomorrow. 10/07: flow cytometry results returned showing NPM1 + and FLT3 +. I obtained the original pathology again from to double check and the original FLT3 was NEGATIVE. NPM1 mutation was detected 43.4%, KIT mutation not detected. 46XY 10/06: 2 units pRBC today. plan to do bone marrow biopsy AM. 2: 1 unit platelets today 10/04: D9. no fever. 10/03: D8. no transfusion. monitor for fever 10/02: Will give 1 unit pRBC's, platelets today. Plan for repeat BMB on 10/10. 10/01: Finished chemotherapy yesterday. Tolerated well. 1 unit irradiated PRBC's to be transfused today. Continue to closely monitor blood counts. 09/30: D5. last day of chemotherapy. will give 1 unit platelets. 09/29: D4. continue chemotherapy. no transfusion. 09/28: D3. 09/27: D2 09/26: Start on CLAG-M chemotherapy for relapsed AML. Received Neupogen yesterday. He spiked a fever this afternoon of 101.3. BC, UA, and CXR ordered. Will start pt on Cefepime. Await BC results. --On 09/18 it was noted that he had a white count at 11k and a platelet count of 76k. Blasts were at 38%. He was brought in to the clinic on 09/24 for a bone marrow biopsy. A CBC was done and showed a white count of 63.7, Hgb 12.2, and platelet count was 33K. The blasts were at 73%. Decision was made at that time to admit for salvage chemo. History: 11/04: AML Diagnosis made. 46XY, +NPM1 mutation detected, FLT3 negative-- indicates favorable prognosis. 11/05-11/28: Initial induction with MELL-C and idarubicin (7+3). STAT Leukapheresis due to leukostasis. On D25, repeat bone marrow showed residual leukemia. 12/06-12/27: Re-induction with FLANG chemotherapy. Repeat bone marrow biopsy negative for residual AML. Patient in Complete Remission 01/06-01/10: C1 consolidation chemotherapy with Mell-C. 02/17-02/21: C2 consolidation chemotherapy with MELL-C. 03/25-03/30: C3 consolidation chemotherapy with MELL-C 04/28-05/02: C4 consolidation chemo with MELL-C (2) Nausea Status: Acute Plan: likely due to chemotherapy as well as antibiotics --prn Ondansetron -- prn Reglan (3) Diarrhea Status: Acute Plan: --C. diff negative. --imodium PRN (4) Hypertension Status: Acute Plan: --on amlodipine, lisinopril, atenolol (5) Fever Status: Acute Plan: --BC + on 10/24 and 10/27; pending from 11/01 --ID following --on Meropenem + Vanco (6) DVT prophylaxis Status: Acute Plan: -- Thrombocytopenia; will hold off on chemical prophylaxis at this time. (7) Diabetes Status: Acute Plan: --on SSI Novolog (8) Depression Status: Acute Plan: --on Zoloft Assessment 46 y/o male admitted for salvage chemotherapy for relapsed AML. Attending Statement low grade fever last night. loose BM. facial redness improving. now on merepanum and vanco. await bm recovery. D/W pt and . D/W RN Problem Qualifiers (1) Diarrhea: Qualified Code: R19.7 - Diarrhea, unspecified type (2) Hypertension: Qualified Code: I10 - Essential hypertension (3) Fever: Qualified Code: R50.9 - Fever, unspecified fever cause (4) Diabetes: Qualified Code: E11.9 - Type 2 diabetes mellitus without complication, without long-term current use of insulin Janet Holm Nov 01, 2016 09:37 Alexandra Olea MD Nov 01, 2016 17:42
[2016-11-01] MEDS ORDERED: PHARMACY ORDERED LAB ONE (09:45)
[2016-11-01] MEDS ORDERED: SODIUM CHLOR 0.9% 250 ML INJ 250 ML IV ONE (09:45)
[2016-11-01] MEDS ORDERED: diphenhydrAMINE HCL 25 MG CAP PO PRN (09:45)
[2016-11-01] MEDS ORDERED: ACETAMINOPHEN 325 MG TAB PO PRN (09:45)
[2016-11-01] MEDS ORDERED: MEROPENEM 1000 MG/NS 100 ML IV SCH ×2 (10:00)
[2016-11-01 10:44] LABS: POLYS (SEG NEUTROPHILS) 0 % (16-70)
[2016-11-01 10:45] LABS: SCAN/DIFF FINAL DIFF MANUAL
[2016-11-01 10:46] LABS: PLATELET ESTIMATE SMEAR RARE (NORMAL); PLATELET MORPHOLOGY NORMAL (NORMAL)
[2016-11-01] MEDS: diphenhydrAMINE HCL 25 MG CAP PO PRN (12:30)
[2016-11-01] MEDS: DIAZEPAM 5 MG TAB PO PRN (12:30)
[2016-11-01] MEDS: MEROPENEM 1000 MG/NS 100 ML IV SCH ×4 (14:42→21:45)
--- NOTE | 2016-11-01 20:15 | HHI.IDPN ---
Subjective Subjective Remarks febrile no facial flushing with vancomycin + liquid diarrhea, feels tired Antibiotics meropenem vanco Allergies: Coded Allergies: Vancomycin (Verified Adverse Reaction, Severe, Diarrhea, 10/29/16) Per pt and his record review he uneventfully took IV vancomycin in December 2015. In october 16-2016 he developped severe diarrhea during vancomycin use, no rash per his account. Objective . Vital Signs Date Time Temp Pulse Resp B/P Pulse Ox O2 Delivery O2 Flow Rate FiO2 11/01/16 18:21 99.0 98 18 120/69 98 11/01/16 14:00 99.3 99 16 141/89 96 11/01/16 13:37 97.9 93 16 141/86 96 11/01/16 13:07 98.7 97 18 136/91 96 11/01/16 09:13 98.3 84 18 108/70 98 11/01/16 04:00 100.7 93 19 131/76 96 10/31/16 23:13 99.4 98 20 142/80 97 10/31/16 21:20 99.3 105 17 169/97 98 10/31/16 10/31/16 11/01/16 15:00 23:00 07:00 Intake Total 1300 ml 710 ml 870 ml Balance 1300 ml 710 ml 870 ml Intake Oral 600 ml 240 ml IV Total 409 ml 170 ml 570 ml Packed Cells 300 ml 300 ml Platelets 291 ml # Voids 4 5 # Bowel Movements 1 2 . Laboratory Tests Test 10/31/16 11/01/16 06:00 06:00 White Blood Count 0.0 TH/MM3 0.0 TH/MM3 Red Blood Count 2.52 MIL/MM3 2.69 MIL/MM3 Hemoglobin 7.3 GM/DL 7.7 GM/DL Hematocrit 19.5 % 21.0 % Mean Corpuscular Volume 77.4 FL 78.1 FL Mean Corpuscular Hemoglobin 28.9 PG 28.5 PG Mean Corpuscular Hemoglobin 37.4 % 36.4 % Concent Red Cell Distribution Width 12.7 % 12.9 % Platelet Count 14 TH/MM3 15 TH/MM3 Mean Platelet Volume 7.3 FL 7.5 FL Neutrophils (%) (Auto) % % Lymphocytes (%) (Auto) % % Monocytes (%) (Auto) % % Eosinophils (%) (Auto) % % Basophils (%) (Auto) % % Neutrophils # (Auto) TH/MM3 TH/MM3 Lymphocytes # (Auto) TH/MM3 TH/MM3 Monocytes # (Auto) TH/MM3 TH/MM3 Eosinophils # (Auto) TH/MM3 TH/MM3 Basophils # (Auto) TH/MM3 TH/MM3 CBC Comment AUTO DIFF AUTO DIFF Neutrophils % (Manual) 0 % 0 % Lymphocytes % 0 % 0 % Neutrophils # (Manual) 0.0 TH/MM3 0.0 TH/MM3 Differential Comment FINAL DIFF FINAL DIFF MANUAL MANUAL Platelet Estimate RARE RARE Platelet Morphology Comment NORMAL NORMAL Laboratory Tests Test 10/31/16 11/01/16 06:00 06:00 Creatinine 0.42 MG/DL 0.45 MG/DL Estimat Glomerular Filtration 217 ML/MIN 200 ML/MIN Rate Sodium Level 135 MEQ/L Potassium Level 3.8 MEQ/L Chloride Level 97 MEQ/L Carbon Dioxide Level 32.0 MEQ/L Anion Gap 6 MEQ/L Blood Urea Nitrogen 8 MG/DL Random Glucose 165 MG/DL Calcium Level 9.0 MG/DL Microbiology Date/Time Procedure Status Source Growth 10/29/16 20:28 Aerobic Blood Culture - Preliminary Resulted Blood Peripheral NO GROWTH IN 3 DAYS 10/29/16 20:28 Anaerobic Blood Culture - Preliminary Resulted Blood Peripheral NO GROWTH IN 3 DAYS 11/01/16 05:00 Aerobic Blood Culture Received Blood Peripheral Pending 11/01/16 05:00 Anaerobic Blood Culture Received Blood Peripheral Pending 11/01/16 11:07 Aerobic Blood Culture Received Blood Peripheral Pending 11/01/16 11:07 Anaerobic Blood Culture Received Blood Peripheral Pending Imaging Last Imp Last Impressions Chest X-Ray 10/21/16 0000 Signed Impressions: Service Date/Time: Friday, October 21, 2016 08:48 - CONCLUSION: 1. No acute cardiopulmonary disease. Rashid Carlin MD Head CT 10/14/16 0000 Signed Impressions: Service Date/Time: Friday, October 14, 2016 09:52 - CONCLUSION: 1. No acute intracranial abnormality is identified. 2. Minimal mucoperiosteal thickening in the left maxillary and ethmoid sinus. Eric Collazo MD Physical Exam CONSTITUTIONAL/GENERAL: This is an adequately nourished patient, in no apparent distress. TUBES/LINES/DRAINS: PORT in R chest - site OK SKIN: No jaundice, rash completed resolved no facial flushing today Skin temperature appropriate. Not diaphoretic. EYES: Pupils equal and round and reactive. Extraocular motions intact. No scleral icterus. No injection or drainage. Fundi not examined. CARDIOVASCULAR: Regular rate and rhythm without murmurs, gallops, or rubs. RESPIRATORY/CHEST: Symmetric, unlabored respirations. Clear to auscultation. Breath sounds equal bilaterally. No wheezes, rales, or rhonchi. GASTROINTESTINAL: Abdomen soft, non-tender, not distended. No hepato- splenomegaly, or palpable masses. No guarding. Bowel sounds present. MUSCULOSKELETAL: Extremities without clubbing, cyanosis, or edema. NEUROLOGICAL: lethargic, but easily arousable. Motor and sensory grossly within normal limits. Follows commands. Cognitively sharp. Moves all extremities. PSYCHIATRIC: No obvious anxiety/depression. 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 source oral ulcer Reports adverse reaction to IV vanco in the form of diarrhea, rash also documented - chart reviewewd : in receiving vanco thru December 21 2015 with no reports of rash - Dr Bhatt saw him om 12/21 - NKDA doc'd -no rash - pt reports reciving IV vanco imn [facility] 10/16-10/20 2016 and it was aw diarrhea - with info above no e/o allergic reaction to vanco Diarrhea, C.diff negative x ; 11/01 test P rash - resolved - it is unclear which abx caused it since pt was on cefepim, flagyl, daptomycin and micafungin at the time when he developped the rash Red man sd to vanco - resolved with rate reduction; now tolerating wo issues 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
[2016-11-01 21:14] LABS: C. DIFF EPI 027 PRESUMPTIVE NEGATIVE (NEGATIVE); C. DIFF TOXIN PCR NEGATIVE (NEGATIVE)
[2016-11-01] MEDS: ATENOLOL 100 MG TAB PO SCH (21:45)
[2016-11-01] MEDS: FLUCONAZOLE 400 MG PREMIX BAG 200 ML IV SCH (21:46)
[2016-11-02] VITALS (10 sets, daily range): BP systolic 99–142; BP diastolic 59–82; PULSE 86–103; RESP 16–20; TEMP 98–101.6; O2SAT 94–100
[2016-11-02] MEDS: VANCOMYCIN INJ 1,500 MG in SODIUM CHLORID 0.9% 500 ML INJ 500 ML IV SCH ×3 (00:48→22:43)
[2016-11-02] MEDS: MEROPENEM 1000 MG/NS 100 ML IV SCH ×6 (04:20→21:29)
[2016-11-02] MEDS ORDERED: SODIUM CHLOR 0.9% 250 ML INJ 250 ML IV ONE (08:15)
[2016-11-02] MEDS ORDERED: diphenhydrAMINE HCL 25 MG CAP PO PRN (08:15)
[2016-11-02] MEDS ORDERED: ACETAMINOPHEN 325 MG TAB PO PRN (08:15)
[2016-11-02 08:17] LABS: MEAN CELL VOLUME 77.5 FL (80.0-100.0); MEAN CORPUSCULAR HEMOGLOBIN 27.7 PG (27.0-34.0); MEAN CORPUSCULAR HGB CONC 35.8 % (32.0-36.0); PLATELET COUNT 22 TH/MM3 (150-450); RED BLOOD COUNT 2.61 MIL/MM3 (4.50-5.90); RED CELL DISTRIBUTION WIDTH 12.7 % (11.6-17.2)
[2016-11-02 08:43] LABS: HEMO FLAGS AUTO DIFF
[2016-11-02 08:48] LABS: HEMATOCRIT 20.2 % (39.0-51.0)
[2016-11-02] MEDS: INSULIN ASPART SUPPLEMENTAL SCALE SQ SCH ×4 (09:31→21:35)
[2016-11-02] MEDS: SERTRALINE HCL 50 MG TAB PO SCH (09:32)
[2016-11-02] MEDS: FLUCONAZOLE 200 MG TAB PO SCH (09:32)
[2016-11-02] MEDS: amLODIPine BESYLATE 5 MG TAB PO SCH (09:32)
[2016-11-02] MEDS: LISINOPRIL 10 MG TAB PO SCH (09:32)
[2016-11-02] MEDS: ACETAMINOPHEN 325 MG TAB PO PRN ×2 (09:32→13:52)
[2016-11-02] MEDS ORDERED: PHARMACY ORDERED LAB ONE (09:45)
[2016-11-02 11:12] LABS: BICARBONATE 27.8 MEQ/L (21.0-32.0); POTASSIUM 3.6 MEQ/L (3.5-5.1)
--- NOTE | 2016-11-02 11:43 | PD.ONC.PN ---
Subjective Subjective Remarks Tmax 102. 8 overnight. Patient feels malaise, but no specific symptoms. He denies cough, congestion, diarrhea, or vomiting. He ate breakfast this morning. he is having bowel movements. Objective Data Date Time Temp Pulse Resp B/P Pulse Ox O2 Delivery O2 Flow Rate FiO2 11/02/16 10:43 99.3 11/02/16 09:24 101.0 11/02/16 08:00 101.6 96 20 142/82 96 11/02/16 04:00 98.6 93 18 99/65 100 11/02/16 00:00 99.6 103 18 135/69 97 11/01/16 21:45 102.8 11/01/16 20:00 99.7 102 19 154/89 99 11/01/16 18:21 99.0 98 18 120/69 98 11/01/16 14:00 99.3 99 16 141/89 96 11/01/16 13:37 97.9 93 16 141/86 96 11/01/16 13:07 98.7 97 18 136/91 96 11/02/16 11/02/16 11/02/16 07:00 15:00 23:00 Intake Total 240 ml Balance 240 ml Result Diagram: 11/02/16 0800 11/02/16 0440 Laboratory Results Laboratory Tests Test 11/01/16 11/02/16 11/02/16 11/02/16 16:10 04:40 08:00 08:16 Stool C. difficile Toxin (PCR) NEGATIVE Stl C. difficile Toxin PRESUMPTIVE Epiderm 027 NEGATIVE Sodium Level 134 MEQ/L Potassium Level 3.6 MEQ/L Chloride Level 99 MEQ/L Carbon Dioxide Level 27.8 MEQ/L Anion Gap 7 MEQ/L Blood Urea Nitrogen 8 MG/DL Creatinine 0.51 MG/DL Estimat Glomerular Filtration 173 ML/MIN Rate Random Glucose 258 MG/DL Calcium Level 9.2 MG/DL White Blood Count 0.0 TH/MM3 Red Blood Count 2.61 MIL/MM3 Hemoglobin 7.2 GM/DL Hematocrit 20.2 % Mean Corpuscular Volume 77.5 FL Mean Corpuscular Hemoglobin 27.7 PG Mean Corpuscular Hemoglobin 35.8 % Concent Red Cell Distribution Width 12.7 % Platelet Count 22 TH/MM3 Mean Platelet Volume 7.8 FL Neutrophils (%) (Auto) % Lymphocytes (%) (Auto) % Monocytes (%) (Auto) % Eosinophils (%) (Auto) % Basophils (%) (Auto) % Neutrophils # (Auto) TH/MM3 Lymphocytes # (Auto) TH/MM3 Monocytes # (Auto) TH/MM3 Eosinophils # (Auto) TH/MM3 Basophils # (Auto) TH/MM3 CBC Comment AUTO DIFF Blood Type O POSITIVE Crossmatch Irradiated/Leukocyte-Reduced RBC Blood Bank Comment Culture Results Microbiology Date/Time Procedure Status Source Growth 11/01/16 05:00 Aerobic Blood Culture - Preliminary Resulted Blood Peripheral NO GROWTH IN 1 DAY 11/01/16 05:00 Anaerobic Blood Culture - Preliminary Resulted Blood Peripheral NO GROWTH IN 1 DAY 11/01/16 11:07 Aerobic Blood Culture - Preliminary Resulted Blood Peripheral NO GROWTH IN 1 DAY 11/01/16 11:07 Anaerobic Blood Culture - Preliminary Resulted Blood Peripheral NO GROWTH IN 1 DAY Administered Medications Medications (Trade) Dose Ordered Sig/Génesis Route PRN Reason Start Time Stop Time Status Last Admin Dose Admin Acetaminophen (Tylenol) 650 mg Q4H PRN PO TEMP> 100.5F 09/25/16 08:45 11/02/16 09:32 Heparin Sodium (Porcine) (Heparin Central Flush) 500 units UNSCH IVF 09/25/16 08:45 10/30/16 20:03 Sodium Chloride (NS Flush) 5 ml UNSCH PRN IVF SEE PROTOCOL 09/25/16 08:45 10/29/16 04:11 Heparin Sodium (Porcine) (Heparin Central Flush) 250 units UNSCH PRN IVF SEE PROTOCOL 09/25/16 08:45 10/21/16 23:43 Sertraline HCl (Zoloft) 50 mg DAILY PO 09/26/16 09:00 11/02/16 09:32 Alteplase, Recombinant 2 mg 2 mg UNSCH PRN IVF SEE LABEL COMMENTS 09/25/16 10:15 10/10/16 09:09 Ondansetron HCl/ Dextrose (Zofran Inj/D5W Inj) 54 ml @ 216 mls/hr Q8H PRN IV PUSH NAUSEA OR VOMITING 09/25/16 10:30 10/27/16 06:03 Docusate Sodium (Colace) 100 mg TID PO 09/25/16 18:00 Hold 10/19/16 13:32 Acetaminophen (Tylenol) 650 mg Q4H PRN PO FOR BLOOD PRODUCTS 09/30/16 22:00 11/01/16 12:30 Diphenhydramine HCl (Benadryl) 25 mg Q4H PRN PO FOR BLOOD PRODUCTS 09/30/16 22:00 11/01/16 12:30 Atenolol (Tenormin) 100 mg HS PO 10/14/16 21:00 11/01/16 21:45 Amlodipine Besylate (Norvasc) 5 mg DAILY PO 10/15/16 09:00 11/02/16 09:32 Diazepam (Valium) 5 mg Q12H PRN PO MILD ANXIETY 10/20/16 11:15 11/01/16 12:30 Oxycodone HCl (Roxicodone) 5 mg DAILY PRN PO pain 10/20/16 11:15 11/01/16 21:45 Diazepam (Valium) 10 mg HS PRN PO INSOMNIA 10/21/16 08:30 10/31/16 23:16 Loperamide HCl (Imodium) 2 mg UNSCH PRN PO DIARRHEA 10/22/16 09:00 10/28/16 09:56 Lisinopril (Prinivil) 10 mg DAILY PO 10/26/16 09:00 11/02/16 09:32 Metoclopramide HCl 5 mg 5 mg Q8H PRN PO NAUSEA 10/27/16 07:15 10/27/16 07:25 Vancomycin HCl 1500 mg/Sodium Chloride 515 ml @ 250 mls/hr Q12H IV 10/31/16 22:00 11/02/16 09:32 Meropenem 1000 mg/ Sodium Chloride 100 ml @ 200 mls/hr Q8H IV 11/01/16 13:00 11/02/16 04:20 Fluconazole/ Sodium Chloride (Diflucan 400 Mg Premix Bag) 200 ml @ 100 mls/hr Q24H IV 11/01/16 21:00 11/01/16 21:46 Objective Remarks GENERAL: Middle aged male, lying in bed. He looks tired today, but non-toxic. SKIN: Warm and dry. port in place, right chest wall, site clean HEAD: Normocephalic. EYES: No injection or drainage. NECK: Supple, trachea midline. CARDIOVASCULAR: Regular rate and rhythm RESPIRATORY: Breath sounds equal bilaterally. No accessory muscle use. GASTROINTESTINAL: Abdomen soft, non-tender, nondistended. EXTREMITIES: No cyanosis NEUROLOGICAL: awake and alert, normal speech. moving all extremities. Assessment/Plan Problem List: (1) AML (acute myeloid leukemia) Status: Acute Plan: 11/02: D38/19. fever overnight. await blood cultures. give 1 unit pRBC. will inform ID of additional fever spike. 11/01: D37/18. spiked fever of 100.[address] Corona, ID advised to stop Zosyn, start Meropenem and continue Vanco. 10/31: D36/17. tolerating Vanco and Zosyn. rash improving. tired of being in hospital. 1 unit platelets and 1 unit pRBC today. plan for bone marrow biopsy on Monday 10/30 Prbc and plat today. No more fevers Tolerating vanco well so far.Clinically looks much better then yesterday. Extensive d/w pt and . 10/29 PRBC and plat todayD/W Dr corona regarding antibiotics. 10/28: D33/14: afebrile overnight. currently on Zosyn. persistent rash. has not been able to take exjade d/t nausea. will check ferritin 10/27: D32/13. febrile to 101.3 likely due to refusing Dapto and Micafungin last night. + rash on face and trunk. no transfusion today. 10/26: D31/12: No new fevers. Continue IV Abx per ID. Pt feeling overall better. Diarrhea is improved. Await count recovery. No transfusion today. 10/25: D30/11: 2 units irradiated platelets today. Continue current IV Abx per ID. Preliminary micro ++gram positive rods 10/24: D29/10. no transfusion. abx per ID. monitor blood pressure with increased Lisinopril. 10/23: D28/9. no transfusion. continue antibiotics. will increase Lisinopril to 20mg PO daily. 10/22: D27/8; 1 unit platelets. continue abx per ID 10/21: D26/7: 1 unit pRBC. CXR 10/20: D25/6. 1 unit platelets and pRBC. stop IVF. wean Adderall 10/19: D24/5 1 unit platelets. last day of chemotherapy 4/15: D23/4. give 2 units pRBC today. monitor for fever 10/17: D22/3. continue CLAG-M. no fever. 10/16: D21/2 Pt tolerated chemo well yesterday. No fevers. Counts OK. No headache. Continue chemo. Monitor counts, fevers. 10/15 D20/ start second cycle of CLAG-M today. D/W side effects and increase morbidity and mortality with the second cycle. He agreed . I will be OOT . Dr Newell will see him till thursday. 10/14: D19. patient started to receive Clarabine but the pump malfunction causing the chemo to spill on the floor. the chemo is being STAT ordered again and will arrive tomorrow morning. 10/13: bone marrow flow shows 70% blasts. d/w patient, repeating induction with CLAG-M chemotherapy or enrolling in a clinical trial. patient would like to try a second induction with CLAG-M. will give Neupogen today and start tomorrow. 10/12: Mildly tachycardic today in the 110's, but no fever. PRBC x 2 ordered today. 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 Will monitor blood counts, heart rate. Plan for repeat BMB on this upcoming week. 10/11: Spiked a fever this morning to 101.8. Will order blood cultures x 2, check UA. No longer tachycardic. Continue IV Abx. Transfuse 1 unit platelets today. 10/10: afebrile today. tolerating blood and platelet transfusions. will keep in ICU another night as he remains tachycardic. 10/09: bone marrow biopsy today. 1 unit platelets, 2 units pRBC. spiked fever 103F. cefepime started. spoke with ID, who advised me to start Daptomycin and Micafungin. transferred to ICU after becoming tachy in 140s 10/08: day 13. 1 unit platelets. bone marrow biopsy tomorrow. 10/07: flow cytometry results returned showing NPM1 + and FLT3 +. I obtained the original pathology again from to double check and the original FLT3 was NEGATIVE. NPM1 mutation was detected 43.4%, KIT mutation not detected. 46XY 10/06: 2 units pRBC today. plan to do bone marrow biopsy AM. 10/05: 1 unit platelets today 10/04: D9. no fever. 10/03: D8. no transfusion. monitor for fever 10/02: Will give 1 unit pRBC's, platelets today. Plan for repeat BMB on 10/10. 10/01: Finished chemotherapy yesterday. Tolerated well. 1 unit irradiated PRBC's to be transfused today. Continue to closely monitor blood counts. 09/30: D5. last day of chemotherapy. will give 1 unit platelets. 09/29: D4. continue chemotherapy. no transfusion. 09/28: D3. 09/27: D2 09/26: Start on CLAG-M chemotherapy for relapsed AML. Received Neupogen yesterday. He spiked a fever this afternoon of 101.3. BC, UA, and CXR ordered. Will start pt on Cefepime. Await BC results. --On 09/18 it was noted that he had a white count at 11k and a platelet count of 76k. Blasts were at 38%. He was brought in to the clinic on 09/24 for a bone marrow biopsy. A CBC was done and showed a white count of 63.7, Hgb 12.2, and platelet count was 33K. The blasts were at 73%. Decision was made at that time to admit for salvage chemo. History: 11/04: AML Diagnosis made. 46XY, +NPM1 mutation detected, FLT3 negative-- indicates favorable prognosis. 11/05-11/28: Initial induction with MELL-C and idarubicin (7+3). STAT Leukapheresis due to leukostasis. On D25, repeat bone marrow showed residual leukemia. 12/06-12/27: Re-induction with FLANG chemotherapy. Repeat bone marrow biopsy negative for residual AML. Patient in Complete Remission 01/06-01/10: C1 consolidation chemotherapy with Mell-C. 02/17-02/21: C2 consolidation chemotherapy with MELL-C. 03/25-03/30: C3 consolidation chemotherapy with MELL-C 04/28-05/02: C4 consolidation chemo with MELL-C (2) Nausea Status: Acute Plan: likely due to chemotherapy as well as antibiotics --prn Ondansetron -- prn Reglan (3) Diarrhea Status: Acute Plan: --C. diff negative. --imodium PRN (4) Hypertension Status: Acute Plan: --on amlodipine, lisinopril, atenolol (5) Fever Status: Acute Plan: --BC + on 10/24 and 10/27; BC no growth on 11/01 --ID following --on Meropenem + Vanco + Fluconazole (6) DVT prophylaxis Status: Acute Plan: -- Thrombocytopenia; will hold off on chemical prophylaxis at this time. (7) Diabetes Status: Acute Plan: --on SSI Novolog (8) Depression Status: Acute Plan: --on Zoloft Assessment 46 y/o male admitted for salvage chemotherapy for relapsed AML. Attending Statement Fever with no chills. Feels sick. Will notify Dr Corona. ? remove port. Prbc today. The exam, history, and the medical decision-making described in the above note were completed with the assistance of the mid-level provider. I reviewed and agree with the findings presented. I attest that I had a [id number] encounter with the patient on the same day, and personally performed and documented my assessment and findings in the medical record. Problem Qualifiers (1) Diarrhea: Qualified Code: R19.7 - Diarrhea, unspecified type (2) Hypertension: Qualified Code: I10 - Essential hypertension (3) Fever: Qualified Code: R50.9 - Fever, unspecified fever cause (4) Diabetes: Qualified Code: E11.9 - Type 2 diabetes mellitus without complication, without long-term current use of insulin Janet Holm Nov 02, 2016 11:43 Alexandra Olea MD Nov 02, 2016 22:42
[2016-11-02 11:52] LABS: PLATELET ESTIMATE SMEAR LOW (NORMAL); PLATELET MORPHOLOGY NORMAL (NORMAL); ROULEAUX PRESENT (NORMAL); SCAN/DIFF FINAL DIFF MANUAL; WBC DIFF SAMPLE 1
[2016-11-02] MEDS: diphenhydrAMINE HCL 25 MG CAP PO PRN (13:51)
[2016-11-02] MEDS: DIAZEPAM 5 MG TAB PO PRN (13:55)
[2016-11-02] MEDS: DIAZEPAM 10 MG TAB PO PRN (21:25)
[2016-11-02] MEDS: ATENOLOL 100 MG TAB PO SCH (21:26)
[2016-11-02] MEDS: FLUCONAZOLE 400 MG PREMIX BAG 200 ML IV SCH (22:42)
[2016-11-03] VITALS (7 sets, daily range): BP systolic 105–138; BP diastolic 62–82; PULSE 85–103; RESP 16–19; TEMP 98.1–100.7; O2SAT 95–100
[2016-11-03] MEDS: MEROPENEM 1000 MG/NS 100 ML IV SCH ×6 (04:44→22:32)
[2016-11-03 05:59] LABS: HEMATOCRIT 21.8 % (39.0-51.0); MEAN CELL VOLUME 77.3 FL (80.0-100.0); MEAN CORPUSCULAR HEMOGLOBIN 27.1 PG (27.0-34.0); RED BLOOD COUNT 2.82 MIL/MM3 (4.50-5.90); RED CELL DISTRIBUTION WIDTH 13.1 % (11.6-17.2)
[2016-11-03 06:07] LABS: HEMO FLAGS AUTO DIFF
[2016-11-03 06:09] LABS: PLATELET COUNT 16 TH/MM3 (150-450)
[2016-11-03 07:59] LABS: WBC DIFF SAMPLE 1
[2016-11-03 08:01] LABS: PLATELET ESTIMATE SMEAR RARE (NORMAL); PLATELET MORPHOLOGY NORMAL (NORMAL); SCAN/DIFF FINAL DIFF MANUAL
[2016-11-03] MEDS: INSULIN ASPART SUPPLEMENTAL SCALE SQ SCH ×4 (09:42→23:02)
[2016-11-03] MEDS: VANCOMYCIN INJ 1,500 MG in SODIUM CHLORID 0.9% 500 ML INJ 500 ML IV SCH (09:43)
[2016-11-03] MEDS: amLODIPine BESYLATE 5 MG TAB PO SCH (09:43)
[2016-11-03] MEDS: SERTRALINE HCL 50 MG TAB PO SCH (09:43)
[2016-11-03] MEDS: LISINOPRIL 10 MG TAB PO SCH (09:43)
--- NOTE | 2016-11-03 11:35 | PD.ONC.PN ---
Subjective Subjective Remarks Tmax 100.4 overnight. Patient frustrated that he is continuing to have fevers. No other symptoms. Excited that his bone marrow biopsy is tomorrow. Objective Data Date Time Temp Pulse Resp B/P Pulse Ox O2 Delivery O2 Flow Rate FiO2 11/03/16 08:00 99.3 91 18 133/81 96 11/03/16 04:00 98.2 87 19 105/62 99 11/03/16 00:00 99.6 100 18 138/82 99 11/02/16 20:00 100.4 101 19 121/75 100 11/02/16 17:35 98.0 86 16 120/74 99 11/02/16 15:05 98.6 88 16 105/59 96 11/02/16 14:30 98.5 88 16 121/73 97 11/02/16 12:00 99.9 93 20 122/79 94 11/03/16 11/03/16 11/03/16 07:00 15:00 23:00 Intake Total 240 ml Balance 240 ml Result Diagram: 11/03/16 0500 11/02/16 0440 Laboratory Results Laboratory Tests Test 11/03/16 05:00 White Blood Count 0.0 TH/MM3 Red Blood Count 2.82 MIL/MM3 Hemoglobin 7.6 GM/DL Hematocrit 21.8 % Mean Corpuscular Volume 77.3 FL Mean Corpuscular Hemoglobin 27.1 PG Mean Corpuscular Hemoglobin 35.0 % Concent Red Cell Distribution Width 13.1 % Platelet Count 16 TH/MM3 Mean Platelet Volume 7.9 FL Neutrophils (%) (Auto) % Lymphocytes (%) (Auto) % Monocytes (%) (Auto) % Eosinophils (%) (Auto) % Basophils (%) (Auto) % Neutrophils # (Auto) TH/MM3 Lymphocytes # (Auto) TH/MM3 Monocytes # (Auto) TH/MM3 Eosinophils # (Auto) TH/MM3 Basophils # (Auto) TH/MM3 CBC Comment AUTO DIFF Differential Total Cells 1 Counted Lymphocytes % 100 % Neutrophils # (Manual) 0.0 TH/MM3 Differential Comment FINAL DIFF MANUAL Platelet Estimate RARE Platelet Morphology Comment NORMAL Red Cell Morphology Comment NORMAL Culture Results Microbiology Date/Time Procedure Status Source Growth 11/01/16 05:00 Aerobic Blood Culture - Preliminary Resulted Blood Peripheral NO GROWTH IN 2 DAYS 11/01/16 05:00 Anaerobic Blood Culture - Preliminary Resulted Blood Peripheral NO GROWTH IN 2 DAYS 11/01/16 11:07 Aerobic Blood Culture - Preliminary Resulted Blood Peripheral NO GROWTH IN 2 DAYS 11/01/16 11:07 Anaerobic Blood Culture - Preliminary Resulted Blood Peripheral NO GROWTH IN 2 DAYS 11/02/16 09:30 Aerobic Blood Culture - Preliminary Resulted Blood Peripheral NO GROWTH IN 1 DAY 11/02/16 09:30 Anaerobic Blood Culture - Preliminary Resulted Blood Peripheral NO GROWTH IN 1 DAY Administered Medications Medications (Trade) Dose Ordered Sig/Génesis Route PRN Reason Start Time Stop Time Status Last Admin Dose Admin Acetaminophen (Tylenol) 650 mg Q4H PRN PO TEMP> 100.5F 09/25/16 08:45 11/02/16 09:32 Heparin Sodium (Porcine) (Heparin Central Flush) 500 units UNSCH IVF 09/25/16 08:45 10/30/16 20:03 Sodium Chloride (NS Flush) 5 ml UNSCH PRN IVF SEE PROTOCOL 09/25/16 08:45 10/29/16 04:11 Heparin Sodium (Porcine) (Heparin Central Flush) 250 units UNSCH PRN IVF SEE PROTOCOL 09/25/16 08:45 11/02/16 17:43 Sertraline HCl (Zoloft) 50 mg DAILY PO 09/26/16 09:00 11/03/16 09:43 Alteplase, Recombinant 2 mg 2 mg UNSCH PRN IVF SEE LABEL COMMENTS 09/25/16 10:15 10/10/16 09:09 Ondansetron HCl/ Dextrose (Zofran Inj/D5W Inj) 54 ml @ 216 mls/hr Q8H PRN IV PUSH NAUSEA OR VOMITING 09/25/16 10:30 10/27/16 06:03 Docusate Sodium (Colace) 100 mg TID PO 09/25/16 18:00 Hold 10/19/16 13:32 Acetaminophen (Tylenol) 650 mg Q4H PRN PO FOR BLOOD PRODUCTS 09/30/16 22:00 11/02/16 13:52 Diphenhydramine HCl (Benadryl) 25 mg Q4H PRN PO FOR BLOOD PRODUCTS 09/30/16 22:00 11/02/16 13:51 Atenolol (Tenormin) 100 mg HS PO 10/14/16 21:00 11/02/16 21:26 Amlodipine Besylate (Norvasc) 5 mg DAILY PO 10/15/16 09:00 11/03/16 09:43 Diazepam (Valium) 5 mg Q12H PRN PO MILD ANXIETY 10/20/16 11:15 11/02/16 13:55 Oxycodone HCl (Roxicodone) 5 mg DAILY PRN PO pain 10/20/16 11:15 11/02/16 21:28 Diazepam (Valium) 10 mg HS PRN PO INSOMNIA 10/21/16 08:30 11/02/16 21:25 Loperamide HCl (Imodium) 2 mg UNSCH PRN PO DIARRHEA 10/22/16 09:00 10/28/16 09:56 Lisinopril (Prinivil) 10 mg DAILY PO 10/26/16 09:00 11/03/16 09:43 Metoclopramide HCl 5 mg 5 mg Q8H PRN PO NAUSEA 10/27/16 07:15 10/27/16 07:25 Vancomycin HCl 1500 mg/Sodium Chloride 515 ml @ 250 mls/hr Q12H IV 10/31/16 22:00 11/03/16 09:43 Meropenem 1000 mg/ Sodium Chloride 100 ml @ 200 mls/hr Q8H IV 11/01/16 13:00 11/03/16 04:44 Fluconazole/ Sodium Chloride (Diflucan 400 Mg Premix Bag) 200 ml @ 100 mls/hr Q24H IV 11/01/16 21:00 11/02/16 22:42 Objective Remarks GENERAL: Pleasant male, sitting up in bed, well groomed in nad. SKIN: Warm and dry. port site accessed and clean. HEAD: Normocephalic. EYES: No injection or drainage. NECK: Supple, trachea midline. CARDIOVASCULAR: Regular rate and rhythm RESPIRATORY: Breath sounds equal bilaterally. No accessory muscle use. GASTROINTESTINAL: Abdomen soft, non-tender, nondistended. EXTREMITIES: No cyanosis NEUROLOGICAL: aox3. normal speech. no obvious focal deficit. Assessment/Plan Problem List: (1) AML (acute myeloid leukemia) Status: Acute Plan: 11/03: D303/25. fever overnight. BC no growth. will consult IR to remove port. give 1 unit pRBC today. 11/02: D302/21. fever overnight. await blood cultures. give 1 unit pRBC. will inform ID of additional fever spike. 11/01: D37/18. spiked fever of 100.[address] Corona, ID advised to stop Zosyn, start Meropenem and continue Vanco. 10/31: D36/17. tolerating Vanco and Zosyn. rash improving. tired of being in hospital. 1 unit platelets and 1 unit pRBC today. plan for bone marrow biopsy on Monday 10/30 Prbc and plat today. No more fevers Tolerating vanco well so far.Clinically looks much better then yesterday. Extensive d/w pt and . 10/29 PRBC and plat todayD/W Dr corona regarding antibiotics. 10/28: D309/16: afebrile overnight. currently on Zosyn. persistent rash. has not been able to take exjade d/t nausea. will check ferritin 10/27: D32/13. febrile to 101.3 likely due to refusing Dapto and Micafungin last night. + rash on face and trunk. no transfusion today. 10/26: D307/17: No new fevers. Continue IV Abx per ID. Pt feeling overall better. Diarrhea is improved. Await count recovery. No transfusion today. 10/25: D3011: 2 units irradiated platelets today. Continue current IV Abx per ID. Preliminary micro ++gram positive rods 10/24: D29/10. no transfusion. abx per ID. monitor blood pressure with increased Lisinopril. 10/23: D28/9. no transfusion. continue antibiotics. will increase Lisinopril to 20mg PO daily. 10/22: D27/8; 1 unit platelets. continue abx per ID 10/21: D26/7: 1 unit pRBC. CXR 10/20: D25/6. 1 unit platelets and pRBC. stop IVF. wean Adderall 10/19: D24/5 1 unit platelets. last day of chemotherapy 10/18: D23/4. give 2 units pRBC today. monitor for fever 10/17: D22/3. continue CLAG-M. no fever. 10/16: D21/2 Pt tolerated chemo well yesterday. No fevers. Counts OK. No headache. Continue chemo. Monitor counts, fevers. 10/15 D20/1 start second cycle of CLAG-M today. D/W side effects and increase morbidity and mortality with the second cycle. He agreed . I will be OOT . Dr Newell will see him till thursday. 10/14: D19. patient started to receive Clarabine but the pump malfunction causing the chemo to spill on the floor. the chemo is being STAT ordered again and will arrive tomorrow morning. 10/13: bone marrow flow shows 70% blasts. d/w patient, repeating induction with CLAG-M chemotherapy or enrolling in a clinical trial. patient would like to try a second induction with CLAG-M. will give Neupogen today and start tomorrow. 10/12: Mildly tachycardic today in the 110's, but no fever. PRBC x 2 ordered today. 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 Will monitor blood counts, heart rate. Plan for repeat BMB on this upcoming week. 10/11: Spiked a fever this morning to 101.8. Will order blood cultures x 2, check UA. No longer tachycardic. Continue IV Abx. Transfuse 1 unit platelets today. 10/10: afebrile today. tolerating blood and platelet transfusions. will keep in ICU another night as he remains tachycardic. 10/09: bone marrow biopsy today. 1 unit platelets, 2 units pRBC. spiked fever 103F. cefepime started. spoke with ID, who advised me to start Daptomycin and Micafungin. transferred to ICU after becoming tachy in 140s 10/08: day 13. 1 unit platelets. bone marrow biopsy tomorrow. 10/07: flow cytometry results returned showing NPM1 + and FLT3 +. I obtained the original pathology again from to double check and the original FLT3 was NEGATIVE. NPM1 mutation was detected 43.4%, KIT mutation not detected. 46XY 10/06: 2 units pRBC today. plan to do bone marrow biopsy AM. 10/05: 1 unit platelets today 10/04: D9. no fever. 10/03: D8. no transfusion. monitor for fever 10/02: Will give 1 unit pRBC's, platelets today. Plan for repeat BMB on 10/10. 10/01: Finished chemotherapy yesterday. Tolerated well. 1 unit irradiated PRBC's to be transfused today. Continue to closely monitor blood counts. 09/30: D5. last day of chemotherapy. will give 1 unit platelets. 09/29: D4. continue chemotherapy. no transfusion. 09/28: D3. 09/27: D2 09/26: Start on CLAG-M chemotherapy for relapsed AML. Received Neupogen yesterday. He spiked a fever this afternoon of 101.3. BC, UA, and CXR ordered. Will start pt on Cefepime. Await BC results. --On 09/18 it was noted that he had a white count at 11k and a platelet count of 76k. Blasts were at 38%. He was brought in to the clinic on 09/24 for a bone marrow biopsy. A CBC was done and showed a white count of 63.7, Hgb 12.2, and platelet count was 33K. The blasts were at 73%. Decision was made at that time to admit for salvage chemo. History: 11/04: AML Diagnosis made. 46XY, +NPM1 mutation detected, FLT3 negative-- indicates favorable prognosis. 11/05-11/28: Initial induction with MELL-C and idarubicin (7+3). STAT Leukapheresis due to leukostasis. On D25, repeat bone marrow showed residual leukemia. 12/06-12/27: Re-induction with FLANG chemotherapy. Repeat bone marrow biopsy negative for residual AML. Patient in Complete Remission 01/06-01/10: C1 consolidation chemotherapy with Mell-C. 02/17-02/21: C2 consolidation chemotherapy with MELL-C. 03/25-03/30: C3 consolidation chemotherapy with MELL-C 04/28-05/02: C4 consolidation chemo with MELL-C (2) Nausea Status: Acute Plan: likely due to chemotherapy as well as antibiotics --prn Ondansetron -- prn Reglan (3) Diarrhea Status: Acute Plan: --C. diff negative. --imodium PRN (4) Hypertension Status: Acute Plan: --on amlodipine, lisinopril, atenolol (5) Fever Status: Acute Plan: --BC + on 10/24 and 10/27; BC no growth on 11/01 --ID following --on Meropenem + Vanco + Fluconazole (6) DVT prophylaxis Status: Acute Plan: -- Thrombocytopenia; will hold off on chemical prophylaxis at this time. (7) Diabetes Status: Acute Plan: --on SSI Novolog (8) Depression Status: Acute Plan: --on Zoloft Assessment 46 y/o male admitted for salvage chemotherapy for relapsed AML. Attending Statement fever. pt feels sick. I d/w him to remove the port. He agrees Consult IR to remove the port. repeat BM bx tomorrow. The exam, history, and the medical decision-making described in the above note were completed with the assistance of the mid-level provider. I reviewed and agree with the findings presented. I attest that I had a [id number] encounter with the patient on the same day, and personally performed and documented my assessment and findings in the medical record. Problem Qualifiers (1) Diarrhea: Qualified Code: R19.7 - Diarrhea, unspecified type (2) Hypertension: Qualified Code: I10 - Essential hypertension (3) Fever: Qualified Code: R50.9 - Fever, unspecified fever cause (4) Diabetes: Qualified Code: E11.9 - Type 2 diabetes mellitus without complication, without long-term current use of insulin Janet Holm November 03, 2016 11:35 Alexandra Olea MD November 03, 2016 17:19
[2016-11-03] MEDS ORDERED: SODIUM CHLOR 0.9% 250 ML INJ 250 ML IV ONE (11:45)
[2016-11-03] MEDS ORDERED: diphenhydrAMINE HCL 25 MG CAP PO PRN (11:45)
[2016-11-03] MEDS ORDERED: ACETAMINOPHEN 325 MG TAB PO PRN (11:45)
[2016-11-03] MEDS: DIAZEPAM 5 MG TAB PO PRN (14:56)
--- NOTE | 2016-11-03 15:44 | HHI.IDPN ---
Subjective Subjective Remarks febrile no facial flushing with vancomycin diarrhea resolvbed non localising Antibiotics meropenem vanco fluc Allergies: Coded Allergies: Vancomycin (Verified Adverse Reaction, Severe, Diarrhea, 10/29/16) Per pt and his record review he uneventfully took IV vancomycin in December 2015. In october 16-2016 he developped severe diarrhea during vancomycin use, no rash per his account. Objective . Vital Signs Date Time Temp Pulse Resp B/P Pulse Ox O2 Delivery O2 Flow Rate FiO2 11/03/16 14:51 100.1 103 16 116/73 100 11/03/16 14:10 98.3 11/03/16 12:00 100.7 89 18 106/68 98 11/03/16 08:00 99.3 91 18 133/81 96 11/03/16 04:00 98.2 87 19 105/62 99 11/03/16 00:00 99.6 100 18 138/82 99 11/02/16 20:00 100.4 101 19 121/75 100 11/02/16 17:35 98.0 86 16 120/74 99 11/02/16 11/02/16 11/03/16 15:00 23:00 07:00 Intake Total 720 ml 840 ml 240 ml Balance 720 ml 840 ml 240 ml Intake Oral 720 ml 840 ml 240 ml # Voids 4 7 3 # Bowel Movements 0 1 1 . Laboratory Tests Test 11/02/16 11/03/16 08:00 05:00 White Blood Count 0.0 TH/MM3 0.0 TH/MM3 Red Blood Count 2.61 MIL/MM3 2.82 MIL/MM3 Hemoglobin 7.2 GM/DL 7.6 GM/DL Hematocrit 20.2 % 21.8 % Mean Corpuscular Volume 77.5 FL 77.3 FL Mean Corpuscular Hemoglobin 27.7 PG 27.1 PG Mean Corpuscular Hemoglobin 35.8 % 35.0 % Concent Red Cell Distribution Width 12.7 % 13.1 % Platelet Count 22 TH/MM3 16 TH/MM3 Mean Platelet Volume 7.8 FL 7.9 FL Neutrophils (%) (Auto) % % Lymphocytes (%) (Auto) % % Monocytes (%) (Auto) % % Eosinophils (%) (Auto) % % Basophils (%) (Auto) % % Neutrophils # (Auto) TH/MM3 TH/MM3 Lymphocytes # (Auto) TH/MM3 TH/MM3 Monocytes # (Auto) TH/MM3 TH/MM3 Eosinophils # (Auto) TH/MM3 TH/MM3 Basophils # (Auto) TH/MM3 TH/MM3 CBC Comment AUTO DIFF AUTO DIFF Differential Total Cells 1 1 Counted Lymphocytes % 100 % 100 % Neutrophils # (Manual) 0.0 TH/MM3 0.0 TH/MM3 Differential Comment FINAL DIFF FINAL DIFF MANUAL MANUAL Platelet Estimate LOW RARE Platelet Morphology Comment NORMAL NORMAL Rouleau PRESENT Red Cell Morphology Comment NORMAL Laboratory Tests Test 11/02/16 04:40 Sodium Level 134 MEQ/L Potassium Level 3.6 MEQ/L Chloride Level 99 MEQ/L Carbon Dioxide Level 27.8 MEQ/L Anion Gap 7 MEQ/L Blood Urea Nitrogen 8 MG/DL Creatinine 0.51 MG/DL Estimat Glomerular Filtration 173 ML/MIN Rate Random Glucose 258 MG/DL Calcium Level 9.2 MG/DL Microbiology Date/Time Procedure Status Source Growth 11/01/16 05:00 Aerobic Blood Culture - Preliminary Resulted Blood Peripheral NO GROWTH IN 2 DAYS 11/01/16 05:00 Anaerobic Blood Culture - Preliminary Resulted Blood Peripheral NO GROWTH IN 2 DAYS 11/01/16 11:07 Aerobic Blood Culture - Preliminary Resulted Blood Peripheral NO GROWTH IN 2 DAYS 11/01/16 11:07 Anaerobic Blood Culture - Preliminary Resulted Blood Peripheral NO GROWTH IN 2 DAYS 11/02/16 09:30 Aerobic Blood Culture - Preliminary Resulted Blood Peripheral NO GROWTH IN 1 DAY 11/02/16 09:30 Anaerobic Blood Culture - Preliminary Resulted Blood Peripheral NO GROWTH IN 1 DAY Imaging Last Impressions Chest X-Ray 10/21/16 0000 Signed Impressions: Service Date/Time: Friday, October 21, 2016 08:48 - CONCLUSION: 1. No acute cardiopulmonary disease. Rashid Carlin MD Head CT 10/14/16 0000 Signed Impressions: Service Date/Time: Friday, October 14, 2016 09:52 - CONCLUSION: 1. No acute intracranial abnormality is identified. 2. Minimal mucoperiosteal thickening in the left maxillary and ethmoid sinus. Eric Collazo MD Physical Exam CONSTITUTIONAL/GENERAL: This is an adequately nourished patient, in no apparent distress. TUBES/LINES/DRAINS: PORT in R chest - site OK, not tender to palpation SKIN: No jaundice, rash completed resolved no facial flushing today Skin temperature appropriate. Not diaphoretic. EYES: Pupils equal and round and reactive. Extraocular motions intact. No scleral icterus. No injection or drainage. Fundi not examined. CARDIOVASCULAR: Regular rate and rhythm without murmurs, gallops, or rubs. RESPIRATORY/CHEST: Symmetric, unlabored respirations. Clear to auscultation. Breath sounds equal bilaterally. No wheezes, rales, or rhonchi. GASTROINTESTINAL: Abdomen soft, non-tender, not distended. No hepato- splenomegaly, or palpable masses. No guarding. Bowel sounds present. MUSCULOSKELETAL: Extremities without clubbing, cyanosis, or edema. NEUROLOGICAL: lethargic, but easily arousable. Motor and sensory grossly within normal limits. Follows commands. Cognitively sharp. Moves all extremities. PSYCHIATRIC: No obvious anxiety/depression. 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 Diarrhea, C.diff negative x 11/01 test P rash - resolved - it is unclear which abx caused it since pt was on cefepim, flagyl, daptomycin and micafungin at the time when he developped the rash Red man sd to vanco - resolved with rate reduction; now tolerating wo issues Persistent fever, pt was switched to meropenem - persistent non loclizing fever -cont meropenem for lactobac sespsis -cont vanco for corynobacterium sespsis - cont fluconazole - CXR - monitor for fever - fu repeat BC untill final and fu sensitivity report on lactobac - port removal is now justified in the view of persistent ow unexpleained fevers Laura Mendiola MD November 03, 2016 15:44
[2016-11-03] MEDS ORDERED: LIDOCAINE 1%/EPINEPHrine 1:100,000 SOLN 20 ML VIAL ONE (15:47)
[2016-11-03] MEDS ORDERED: SODIUM CHLORIDE 0.9% FLUSH 10 ML FLUSH IVF PRN (17:15)
--- NOTE | 2016-11-03 17:18 | PD.RAD ---
Radiology Post PICC Prog Note Pre Procedure Diagnosis: (1) AML (acute myeloid leukemia) Post Procedure Diagnosis: (1) AML (acute myeloid leukemia) Procedure: Left PICC line placement Procedure Date: November 03, 2016 Supervising Radiologist Isai Healy JR Proceduralist/Assist: Michelle Gaona RT(R)() Device Side: Left Colombian: 4 single lumen cm: 46 Catheter: Power PICC Plan of Activity Patient to Unit: Nursing Unit Patient Condition: Good PICC line can be used immediately Jr. Healy Thomas Justin MD November 03, 2016 17:18
--- NOTE | 2016-11-03 17:19 | PD.RAD ---
Post Procedure Progress Note Pre Procedure Diagnosis: (1) Fever (2) AML (acute myeloid leukemia) Post Procedure Diagnosis: (1) Fever (2) AML (acute myeloid leukemia) Procedure Date: November 03, 2016 Supervising Radiologist: Isai Healy JR Proceduralist/Assist: RT Bradford(R)() Anesthesia: Local Plan of Activity Patient to Unit: Nursing Unit Patient Condition: Good See PACS Report for procedural detail/treatment Central Venous Access Device Procedure 1 Right Internal Jugular Infusaport Removal dual lumen Findings: Port pocket without gross signs of infection. Port removed. Tip sent for cx. Plan F/U with a physician in 10-14 days for a site check Jr Niraj.,Isai Smith MD November 03, 2016 17:19
--- NOTE | 2016-11-03 17:26 | RADRPT ---
EXAM DATE/TIME: 11/03/2016 00:00 [facility] COMPARISON: No previous studies available for comparison. INDICATIONS : AML. Fever. Port removal requested. MEDICAL HISTORY : ADHD Hemochromatosis Hypercholesterolemia Acute myeliod leukemia diagnosed in October last year Anxiety disorder SURGICAL HISTORY : Port placement Tonsillectomy Undescended testis Colonoscopy Cardiac catheterization Anal sphincterotomy ENCOUNTER: Initial ACUITY: 2 days PAIN SCORE: 0/10 Prophylactic antibiotics were administered with appropriate pre-procedure timing. Vancomycin within 2 hrs of procedure, Ancef (or alternative) within 1 hr of procedure. PROCEDURE : 1. Removal of Iwekab-s-cvyt. 2. Conscious sedation with continuous EKG and oximetry monitoring. The risk, benefits and potential complications of Tcwcfs-s-Thiy removal were discussed. Written conse nt was obtained. The patient was placed supine. The chest wall was prepped in sterile fashion. Full sterile techniqu e was used, including cap, mask, sterile gloves and gown, and a large sterile sheet. Hand hygiene an d 2% chlorhexidine and/or Betadine/alcohol prep was utilized per protocol for cutaneous antisepsis. The skin and subcutaneous tissues were infiltrated with local anesthetic solution. A small incision w as made, the subcutaneous pocket was opened. The port was dissected from the subcutaneous tissues and easily removed in one piece. The pocket incision was closed with subcuticular Vicryl suture. Steri -Strips were applied. Conscious sedation was performed with the prescribed dosages and duration as above in the presence of an independent trained radiology nurse to assist in the monitoring of the patient. EKG and oximetry remained stable throughout the procedure. The patient tolerated the procedure well and there were no complications. The patient was sent to post anesthesia recovery in stable condition. CONCLUSION: Uncomplicated port removal as above. The tip of the catheter was sent for culture. Isai Healy Jr., MD on November 03, 2016 at 17:23 Board Certified Radiologist. This report was verified electronically.
--- NOTE | 2016-11-03 17:26 | RADRPT ---
EXAM DATE/TIME: 11/03/2016 15:49 [facility] COMPARISON: No previous studies available for comparison. INDICATIONS : Patient with relapse acute myeliod leukemia in need of picc line for treatment. 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 Ultrasound guidance for venous catheterization. 2. Fluoroscopic guidance. 3. Ultrasound & fluoroscopic guided central venous Power PICC line placement. The risks, benefits and alternatives to the procedure were explained and verbal and written consent w as obtained. The site was prepped in sterile fashion. Full sterile technique was used, including ca p, mask, sterile gloves and gown and a large sterile sheet. Hand hygiene and 2% chlorhexidine prep w as utilized per protocol for cutaneous antisepsis with appropriate dry time for site. The skin and s ubcutaneous tissues were infiltrated with local anesthetic solution. Under direct ultrasound guidance, a suitable vein was accessed and a measuring guidewire was introduc ed and positioned in the central venous system. The ultrasound images depicting access guidance were saved and stored to PACS for permanent record. A Power Injectable PICC line was cut to prescribed length and introduced, positioned with tip at the cavoatrial junction level. The line was flushed and secured per protocol. CONCLUSION: 1. Uncomplicated central venous Power PICC line placement. 2. The PICC line can be used immediately. Isai Healy Jr., MD on November 03, 2016 at 17:24 Board Certified Radiologist. This report was verified electronically.
--- NOTE | 2016-11-03 18:40 | RADRPT ---
EXAM DATE/TIME: 11/03/2016 18:12 [facility] COMPARISON: No previous studies available for comparison. INDICATIONS : Fever. MEDICAL HISTORY : Hypertension. Diabetes mellitus type II. Leukemia. Chemotherapy. SURGICAL HISTORY : Infusaport. ENCOUNTER: Subsequent ACUITY: 1 day PAIN SCORE: 0/10 LOCATION: Bilateral chest FINDINGS: No infiltrate, effusion or pneumothorax. Heart size stable, normal. Vnhcnb-i-Majl catheter has been removed. There is now a right arm PICC with tip in the superior vena cava. CONCLUSION: 1. No pneumonia or other acute cardiopulmonary disease. 2. Right IJ Zmfoth-e-Jnmh catheter out in the interim. There is now a right arm PICC with tip in the superior vena cava. Eric Ontiveros MD on November 03, 2016 at 18:36 Board Certified Radiologist. This report was verified electronically.
[2016-11-03 21:10] LABS: MEAN CORPUSCULAR HGB CONC 36.2 % (32.0-36.0)
[2016-11-03] MEDS ORDERED: diphenhydrAMINE HCL 25 MG CAP PO ONE ×2 (22:15→23:00)
[2016-11-03] MEDS ORDERED: ACETAMINOPHEN 325 MG TAB PO ONE ×2 (22:15→23:00)
[2016-11-03] MEDS: ATENOLOL 100 MG TAB PO SCH (22:31)
[2016-11-03] MEDS: FLUCONAZOLE 400 MG PREMIX BAG 200 ML IV SCH (22:35)
[2016-11-04] VITALS (9 sets, daily range): BP systolic 107–151; BP diastolic 65–97; PULSE 76–98; RESP 16–17; TEMP 97.8–100.3; O2SAT 92–98
[2016-11-04] MEDS: DIAZEPAM 10 MG TAB PO PRN ×2 (00:33→23:47)
[2016-11-04] MEDS: VANCOMYCIN INJ 1,500 MG in SODIUM CHLORID 0.9% 500 ML INJ 500 ML IV SCH (00:34)
[2016-11-04] MEDS: MEROPENEM 1000 MG/NS 100 ML IV SCH ×6 (05:40→20:40)
[2016-11-04 06:52] LABS: MEAN CELL VOLUME 76.6 FL (80.0-100.0); MEAN CORPUSCULAR HEMOGLOBIN 27.7 PG (27.0-34.0); RED BLOOD COUNT 2.41 MIL/MM3 (4.50-5.90); RED CELL DISTRIBUTION WIDTH 12.7 % (11.6-17.2)
[2016-11-04 07:00] LABS: HEMO FLAGS AUTO DIFF
[2016-11-04] MEDS: INSULIN ASPART SUPPLEMENTAL SCALE SQ SCH ×4 (07:00→21:56)
[2016-11-04 07:05] LABS: HEMATOCRIT 18.4 % (39.0-51.0); PLATELET COUNT 18 TH/MM3 (150-450)
[2016-11-04] MEDS ORDERED: ACETAMINOPHEN 325 MG TAB PO PRN (07:45)
[2016-11-04] MEDS ORDERED: diphenhydrAMINE HCL 25 MG CAP PO PRN (07:45)
[2016-11-04] MEDS ORDERED: SODIUM CHLOR 0.9% 250 ML INJ 250 ML IV ONE (07:45)
[2016-11-04] MEDS ORDERED: LIDOCAINE HCL 2% 50 ML VIAL ONE (07:46)
[2016-11-04] MEDS ORDERED: HYDROmorphone HCL PF 1 MG/ML VIAL IV PUSH ONE (08:00)
[2016-11-04] MEDS: DIAZEPAM 5 MG TAB PO PRN (08:01)
[2016-11-04 08:25] LABS: BANDS 0 % (0-6); POLYS (SEG NEUTROPHILS) 0 % (16-70)
[2016-11-04 08:26] LABS: PLATELET ESTIMATE SMEAR RARE (NORMAL); PLATELET MORPHOLOGY NORMAL (NORMAL); SCAN/DIFF FINAL DIFF MANUAL
[2016-11-04] MEDS ORDERED: LIDOCAINE HCL 2% 20 ML VIAL INFIL ONE (09:00)
[2016-11-04] MEDS: SODIUM CHLORIDE 0.9% FLUSH 10 ML FLUSH IVF SCH (09:00)
[2016-11-04 09:18] LABS: BONE MARROW PROCESSING COMPLETE; IRON STAIN DONE; JENNER GIEMSA STAIN DONE
[2016-11-04] MEDS: LISINOPRIL 10 MG TAB PO SCH (11:21)
[2016-11-04] MEDS: amLODIPine BESYLATE 5 MG TAB PO SCH (11:21)
[2016-11-04] MEDS: SERTRALINE HCL 50 MG TAB PO SCH (11:21)
--- NOTE | 2016-11-04 13:35 | PD.ONC.PN ---
Subjective Subjective Remarks Tmax 100.3 overnight. Patient seen at 8AM. No overnight events. Feels well and excited to do bone marrow biopsy today. Objective Data Date Time Temp Pulse Resp B/P Pulse Ox O2 Delivery O2 Flow Rate FiO2 11/04/16 12:55 97.8 76 16 117/68 93 11/04/16 11:58 97.8 78 16 107/66 95 11/04/16 08:43 98.2 89 16 135/85 96 11/04/16 04:00 98.2 92 17 114/65 98 11/04/16 00:00 100.3 93 17 143/78 96 11/03/16 19:14 98.1 85 16 129/73 95 11/03/16 14:51 100.1 103 16 116/73 100 11/03/16 14:10 98.3 Result Diagram: 11/04/16 0530 11/04/16 05 Laboratory Results Laboratory Tests Test 11/04/16 11/04/16 05:30 07:42 White Blood Count 0.0 TH/MM3 Red Blood Count 2.41 MIL/MM3 Hemoglobin 6.7 GM/DL Hematocrit 18.4 % Mean Corpuscular Volume 76.6 FL Mean Corpuscular Hemoglobin 27.7 PG Mean Corpuscular Hemoglobin 36.2 % Concent Red Cell Distribution Width 12.7 % Platelet Count 18 TH/MM3 Mean Platelet Volume 8.3 FL Neutrophils (%) (Auto) % Lymphocytes (%) (Auto) % Monocytes (%) (Auto) % Eosinophils (%) (Auto) % Basophils (%) (Auto) % Neutrophils # (Auto) TH/MM3 Lymphocytes # (Auto) TH/MM3 Monocytes # (Auto) TH/MM3 Eosinophils # (Auto) TH/MM3 Basophils # (Auto) TH/MM3 CBC Comment AUTO DIFF Neutrophils % (Manual) 0 % Band Neutrophils % 0 % Neutrophils # (Manual) 0.0 TH/MM3 Differential Comment FINAL DIFF MANUAL Platelet Estimate RARE Platelet Morphology Comment NORMAL Creatinine 0.48 MG/DL Estimat Glomerular Filtration 186 ML/MIN Rate Blood Type O POSITIVE Crossmatch Irradiated/Leukocyte-Reduced RBC Blood Bank Comment Culture Results Microbiology Date/Time Procedure Status Source Growth 11/02/16 09:30 Aerobic Blood Culture - Preliminary Resulted Blood Peripheral NO GROWTH IN 2 DAYS 11/02/16 09:30 Anaerobic Blood Culture - Preliminary Resulted Blood Peripheral NO GROWTH IN 2 DAYS 11/03/16 16:48 Wound Culture Received Catheter Tip Other Pending Administered Medications Medications (Trade) Dose Ordered Sig/Génesis Route PRN Reason Start Time Stop Time Status Last Admin Dose Admin Acetaminophen (Tylenol) 650 mg Q4H PRN PO TEMP> 100.5F 09/25/16 08:45 11/02/16 09:32 Heparin Sodium (Porcine) (Heparin Central Flush) 500 units UNSCH IVF 09/25/16 08:45 10/30/16 20:03 Sodium Chloride (NS Flush) 5 ml UNSCH PRN IVF SEE PROTOCOL 09/25/16 08:45 10/29/16 04:11 Heparin Sodium (Porcine) (Heparin Central Flush) 250 units UNSCH PRN IVF SEE PROTOCOL 09/25/16 08:45 11/02/16 17:43 Sertraline HCl (Zoloft) 50 mg DAILY PO 09/26/16 09:00 11/04/16 11:21 Alteplase, Recombinant 2 mg 2 mg UNSCH PRN IVF SEE LABEL COMMENTS 09/25/16 10:15 10/10/16 09:09 Ondansetron HCl/ Dextrose (Zofran Inj/D5W Inj) 54 ml @ 216 mls/hr Q8H PRN IV PUSH NAUSEA OR VOMITING 09/25/16 10:30 10/27/16 06:03 Docusate Sodium (Colace) 100 mg TID PO 09/25/16 18:00 Hold 10/19/16 13:32 Atenolol (Tenormin) 100 mg HS PO 10/14/16 21:00 11/03/16 22:31 Amlodipine Besylate (Norvasc) 5 mg DAILY PO 10/15/16 09:00 11/04/16 11:21 Diazepam (Valium) 5 mg Q12H PRN PO MILD ANXIETY 10/20/16 11:15 11/04/16 08:01 Diazepam (Valium) 10 mg HS PRN PO INSOMNIA 10/21/16 08:30 11/04/16 00:33 Loperamide HCl (Imodium) 2 mg UNSCH PRN PO DIARRHEA 10/22/16 09:00 10/28/16 09:56 Lisinopril (Prinivil) 10 mg DAILY PO 10/26/16 09:00 11/04/16 11:21 Metoclopramide HCl 5 mg 5 mg Q8H PRN PO NAUSEA 10/27/16 07:15 10/27/16 07:25 Meropenem 1000 mg/ Sodium Chloride 100 ml @ 200 mls/hr Q8H IV 11/01/16 13:00 11/04/16 05:40 Fluconazole/ Sodium Chloride (Diflucan 400 Mg Premix Bag) 200 ml @ 100 mls/hr Q24H IV 11/01/16 21:00 11/03/16 22:35 Objective Remarks GENERAL: Middle aged male, sitting up in bed in nad. SKIN: Warm and dry. bandage, right chest wall with some dried blood. PICC line , right arm, site clean without bleeding. red raised rash on flanks HEAD: Normocephalic. EYES: No injection or drainage. NECK: Supple, trachea midline. CARDIOVASCULAR: Regular rate and rhythm RESPIRATORY: Breath sounds equal bilaterally. No accessory muscle use. GASTROINTESTINAL: Abdomen soft, non-tender, nondistended. EXTREMITIES: No cyanosis NEUROLOGICAL: No obvious focal deficit. Awake, alert, and oriented x3. Assessment/Plan Problem List: (1) AML (acute myeloid leukemia) Status: Acute Plan: 11/04: D40/21. bone marrow biopsy and aspirate at bedside. continue abx. patient has red raised rash on flanks, none on face or chest. give 2 units pRBC , 1 unit platelet today. 11/03: D39/20. fever overnight. BC no growth. will consult IR to remove port. 11/02: D38/19. fever overnight. await blood cultures. give 1 unit pRBC. will inform ID of additional fever spike. 11/01: D37/18. spiked fever of 100.[address] Corona, ID advised to stop Zosyn, start Meropenem and continue Vanco. 10/31: D36/17. tolerating Vanco and Zosyn. rash improving. tired of being in hospital. 1 unit platelets and 1 unit pRBC today. plan for bone marrow biopsy on Monday 10/30 Prbc and plat today. No more fevers Tolerating vanco well so far.Clinically looks much better then yesterday. Extensive d/w pt and . 10/29 PRBC and plat todayD/W Dr corona regarding antibiotics. 10/28: D33/14: afebrile overnight. currently on Zosyn. persistent rash. has not been able to take exjade d/t nausea. will check ferritin 10/27: D32/13. febrile to 101.3 likely due to refusing Dapto and Micafungin last night. + rash on face and trunk. no transfusion today. 10/26: D31/12: No new fevers. Continue IV Abx per ID. Pt feeling overall better. Diarrhea is improved. Await count recovery. No transfusion today. 10/25: D30/11: 2 units irradiated platelets today. Continue current IV Abx per ID. Preliminary micro ++gram positive rods 10/24: D29/10. no transfusion. abx per ID. monitor blood pressure with increased Lisinopril. 10/23: D28/9. no transfusion. continue antibiotics. will increase Lisinopril to 20mg PO daily. 10/22: D27/8; 1 unit platelets. continue abx per ID 10/21: D26/7: 1 unit pRBC. CXR 10/20: D25/6. 1 unit platelets and pRBC. stop IVF. wean Adderall 10/19: D24/5 1 unit platelets. last day of chemotherapy 10/18: D23/4. give 2 units pRBC today. monitor for fever 10/17: D22/3. continue CLAG-M. no fever. 10/16: D21/2 Pt tolerated chemo well yesterday. No fevers. Counts OK. No headache. Continue chemo. Monitor counts, fevers. 10/15 D20/ start second cycle of CLAG-M today. D/W side effects and increase morbidity and mortality with the second cycle. He agreed . I will be OOT . Dr Newell will see him till thursday. 10/14: D19. patient started to receive Clarabine but the pump malfunction causing the chemo to spill on the floor. the chemo is being STAT ordered again and will arrive tomorrow morning. 10/13: bone marrow flow shows 70% blasts. d/w patient, repeating induction with CLAG-M chemotherapy or enrolling in a clinical trial. patient would like to try a second induction with CLAG-M. will give Neupogen today and start tomorrow. 10/12: Mildly tachycardic today in the 110's, but no fever. PRBC x 2 ordered today. [employer] replacing potassium per protocol for level of 3.2. Will monitor blood counts, heart rate. Plan for repeat BMB on this upcoming week. 10/11: Spiked a fever this morning to 101.8. Will order blood cultures x 2, check UA. No longer tachycardic. Continue IV Abx. Transfuse 1 unit platelets today. 10/10: afebrile today. tolerating blood and platelet transfusions. will keep in ICU another night as he remains tachycardic. 10/09: bone marrow biopsy today. 1 unit platelets, 2 units pRBC. spiked fever 103F. cefepime started. spoke with ID, who advised me to start Daptomycin and Micafungin. transferred to ICU after becoming tachy in 140s 10/08: day 13. 1 unit platelets. bone marrow biopsy tomorrow. 10/07: flow cytometry results returned showing NPM1 + and FLT3 +. I obtained the original pathology again from to double check and the original FLT3 was NEGATIVE. NPM1 mutation was detected 43.4%, KIT mutation not detected. 46XY 10/06: 2 units pRBC today. plan to do bone marrow biopsy AM. 10/05: 1 unit platelets today 10/04: D9. no fever. 10/03: D8. no transfusion. monitor for fever 10/02: Will give 1 unit pRBC's, platelets today. Plan for repeat BMB on 10/10. 10/01: Finished chemotherapy yesterday. Tolerated well. 1 unit irradiated PRBC's to be transfused today. Continue to closely monitor blood counts. 09/30: D5. last day of chemotherapy. will give 1 unit platelets. 09/29: D4. continue chemotherapy. no transfusion. 09/28: D3. 09/27: D2 09/26: Start on CLAG-M chemotherapy for relapsed AML. Received Neupogen yesterday. He spiked a fever this afternoon of 101.3. BC, UA, and CXR ordered. Will start pt on Cefepime. Await BC results. --On 09/18 it was noted that he had a white count at 11k and a platelet count of 76k. Blasts were at 38%. He was brought in to the clinic on 09/24 for a bone marrow biopsy. A CBC was done and showed a white count of 63.7, Hgb 12.2, and platelet count was 33K. The blasts were at 73%. Decision was made at that time to admit for salvage chemo. History: 11/04: AML Diagnosis made. 46XY, +NPM1 mutation detected, FLT3 negative-- indicates favorable prognosis. 11/05-11/28: Initial induction with MELL-C and idarubicin (7+3). STAT Leukapheresis due to leukostasis. On D25, repeat bone marrow showed residual leukemia. 12/06-12/27: Re-induction with FLANG chemotherapy. Repeat bone marrow biopsy negative for residual AML. Patient in Complete Remission 01/06-01/10: C1 consolidation chemotherapy with Mell-C. 02/17-02/21: C2 consolidation chemotherapy with MELL-C. 03/25-03/30: C3 consolidation chemotherapy with MELL-C 04/28-05/02: C4 consolidation chemo with MELL-C (2) Diarrhea Status: Acute Plan: --C. diff negative. --imodium PRN (3) Nausea Status: Acute Plan: likely due to chemotherapy as well as antibiotics --prn Ondansetron -- prn Reglan (4) Hypertension Status: Acute Plan: --on amlodipine, lisinopril, atenolol (5) Fever Status: Acute Plan: --BC + on 10/24 and 10/27; BC no growth on 11/01, 11/02 --port removed 11/03. culture pending --ID following --on Meropenem + Vanco + Fluconazole (6) DVT prophylaxis Status: Acute Plan: -- Thrombocytopenia; will hold off on chemical prophylaxis at this time. (7) Diabetes Status: Acute Plan: --on SSI Novolog (8) Depression Status: Acute Plan: --on Zoloft Assessment 46 y/o male admitted for salvage chemotherapy for relapsed AML. Attending Statement c/o fever and rash. Plat and PRBC today. BM bx (day 21) done with Taylor Holm PA-C. Tolerated well. If BM shows persistence leukemia then transfer to [facility] for clinical trials. d/w pt and . The exam, history, and the medical decision-making described in the above note were completed with the assistance of the mid-level provider. I reviewed and agree with the findings presented. I attest that I had a [id number] encounter with the patient on the same day, and personally performed and documented my assessment and findings in the medical record. Procedure Note Procedure Bone marrow Aspiration and Biopsy Performed by: Dr. Katlin Olea and Janet Holm PA-C Risks and benefits of the procedure were discussed with the patient. Consent was obtained and signed by the patient. The patient was given Valium 5mg PO + Dilaudid 1mg IV as pre-medication. The patient was placed in the left lateral decubitus position. Sterile technique was followed. The site was prepped with Betadine and sterilely draped. Approximately 10 cc 1% lidocaine was used for local anesthesia. Bone marrow aspiration and biopsy were obtained from the right posterior iliac crest. Area was cleaned with saline and sterile bandage placed. Ice pack placed over the area for ten minutes after the procedure. The patient tolerated the procedure without complications and with minimal pain. Problem Qualifiers (1) Diarrhea: Qualified Code: R19.7 - Diarrhea, unspecified type (2) Hypertension: Qualified Code: I10 - Essential hypertension (3) Fever: Qualified Code: R50.9 - Fever, unspecified fever cause (4) Diabetes: Qualified Code: E11.9 - Type 2 diabetes mellitus without complication, without long-term current use of insulin Janet Holm November 04, 2016 13:35 Alexandra Olea MD November 05, 2016 06:02
[2016-11-04] MEDS: diphenhydrAMINE HCL 25 MG CAP PO PRN (15:47)
[2016-11-04] MEDS: ACETAMINOPHEN 325 MG TAB PO PRN (15:48)
[2016-11-04] MEDS: VANCOMYCIN INJ 1,750 MG in SODIUM CHLORID 0.9% 500 ML INJ 500 ML IV SCH (17:33)
[2016-11-04] MEDS: ATENOLOL 100 MG TAB PO SCH (20:40)
[2016-11-04 21:09] LABS: MEAN CORPUSCULAR HGB CONC 36.1 % (32.0-36.0)
[2016-11-04] MEDS: FLUCONAZOLE 400 MG PREMIX BAG 200 ML IV SCH (21:55)
[2016-11-05] VITALS: BP 141/83; PULSE 100; RESP 18; TEMP 98.6; O2SAT 94
[2016-11-05] MEDS: MEROPENEM 1000 MG/NS 100 ML IV SCH ×6 (06:00→21:53)
[2016-11-05] MEDS: VANCOMYCIN INJ 1,750 MG in SODIUM CHLORID 0.9% 500 ML INJ 500 ML IV SCH ×2 (06:06→17:37)
[2016-11-05 06:09] VITALS: BP 137/85; PULSE 87; RESP 16; TEMP 98.8; O2SAT 97
[2016-11-05 06:54] LABS: HEMATOCRIT 23.1 % (39.0-51.0); MEAN CELL VOLUME 75.9 FL (80.0-100.0); MEAN CORPUSCULAR HEMOGLOBIN 27.4 PG (27.0-34.0); PLATELET COUNT 27 TH/MM3 (150-450); RED BLOOD COUNT 3.05 MIL/MM3 (4.50-5.90); RED CELL DISTRIBUTION WIDTH 13.5 % (11.6-17.2)
[2016-11-05 06:57] LABS: HEMO FLAGS AUTO DIFF
[2016-11-05 07:16] LABS: BICARBONATE 34.3 MEQ/L (21.0-32.0); POTASSIUM 3.8 MEQ/L (3.5-5.1)
[2016-11-05 07:47] LABS: PLATELET ESTIMATE SMEAR LOW (NORMAL); PLATELET MORPHOLOGY NORMAL (NORMAL); SCAN/DIFF FINAL DIFF MANUAL; WBC DIFF SAMPLE 2
[2016-11-05 07:50] VITALS: BP 139/84; PULSE 91; RESP 20; TEMP 98.2; O2SAT 95
--- NOTE | 2016-11-05 09:01 | PD.ONC.PN ---
Subjective Subjective Remarks c/o rash and low grade fever. Objective Data Date Time Temp Pulse Resp B/P Pulse Ox O2 Delivery O2 Flow Rate FiO2 11/05/16 06:09 98.8 87 16 137/85 97 11/05/16 00:00 98.6 100 18 141/83 94 11/04/16 20:30 99.7 11/04/16 20:00 100.1 97 17 138/85 92 11/04/16 18:00 16 11/04/16 16:35 98.7 98 16 130/78 96 11/04/16 15:09 97.9 80 16 151/97 96 11/04/16 12:55 97.8 76 16 117/68 93 11/04/16 11:58 97.8 78 16 107/66 95 Result Diagram: 11/05/16 0558 11/05/16 0558 Laboratory Results Laboratory Tests Test 11/05/16 05:58 White Blood Count 0.0 TH/MM3 Red Blood Count 3.05 MIL/MM3 Hemoglobin 8.4 GM/DL Hematocrit 23.1 % Mean Corpuscular Volume 75.9 FL Mean Corpuscular Hemoglobin 27.4 PG Mean Corpuscular Hemoglobin 36.1 % Concent Red Cell Distribution Width 13.5 % Platelet Count 27 TH/MM3 Mean Platelet Volume 8.1 FL Neutrophils (%) (Auto) % Lymphocytes (%) (Auto) % Monocytes (%) (Auto) % Eosinophils (%) (Auto) % Basophils (%) (Auto) % Neutrophils # (Auto) TH/MM3 Lymphocytes # (Auto) TH/MM3 Monocytes # (Auto) TH/MM3 Eosinophils # (Auto) TH/MM3 Basophils # (Auto) TH/MM3 CBC Comment AUTO DIFF Differential Total Cells 2 Counted Lymphocytes % 50 % Monocytes % 50 % Neutrophils # (Manual) 0.0 TH/MM3 Differential Comment FINAL DIFF MANUAL Platelet Estimate LOW Platelet Morphology Comment NORMAL Sodium Level 135 MEQ/L Potassium Level 3.8 MEQ/L Chloride Level 93 MEQ/L Carbon Dioxide Level 34.3 MEQ/L Anion Gap 8 MEQ/L Blood Urea Nitrogen 10 MG/DL Creatinine 0.48 MG/DL Estimat Glomerular Filtration 186 ML/MIN Rate Random Glucose 208 MG/DL Calcium Level 8.9 MG/DL Culture Results Microbiology Date/Time Procedure Status Source Growth 11/02/16 09:30 Aerobic Blood Culture - Preliminary Resulted Blood Peripheral NO GROWTH IN 2 DAYS 11/02/16 09:30 Anaerobic Blood Culture - Preliminary Resulted Blood Peripheral NO GROWTH IN 2 DAYS 11/03/16 16:48 Wound Culture - Final Complete Catheter Tip Other NO GROWTH IN 48 HOURS. Administered Medications Medications (Trade) Dose Ordered Sig/Génesis Route PRN Reason Start Time Stop Time Status Last Admin Dose Admin Acetaminophen (Tylenol) 650 mg Q4H PRN PO TEMP> 100.5F 09/25/16 08:45 11/02/16 09:32 Heparin Sodium (Porcine) (Heparin Central Flush) 500 units UNSCH IVF 09/25/16 08:45 10/30/16 20:03 Sodium Chloride (NS Flush) 5 ml UNSCH PRN IVF SEE PROTOCOL 09/25/16 08:45 10/29/16 04:11 Heparin Sodium (Porcine) (Heparin Central Flush) 250 units UNSCH PRN IVF SEE PROTOCOL 09/25/16 08:45 11/02/16 17:43 Sertraline HCl (Zoloft) 50 mg DAILY PO 09/26/16 09:00 11/04/16 11:21 Alteplase, Recombinant 2 mg 2 mg UNSCH PRN IVF SEE LABEL COMMENTS 09/25/16 10:15 10/10/16 09:09 Ondansetron HCl/ Dextrose (Zofran Inj/D5W Inj) 54 ml @ 216 mls/hr Q8H PRN IV PUSH NAUSEA OR VOMITING 09/25/16 10:30 10/27/16 06:03 Docusate Sodium (Colace) 100 mg TID PO 09/25/16 18:00 Hold 10/19/16 13:32 Atenolol (Tenormin) 100 mg HS PO 10/14/16 21:00 11/04/16 20:40 Amlodipine Besylate (Norvasc) 5 mg DAILY PO 10/15/16 09:00 11/04/16 11:21 Diazepam (Valium) 5 mg Q12H PRN PO MILD ANXIETY 10/20/16 11:15 11/04/16 08:01 Diazepam (Valium) 10 mg HS PRN PO INSOMNIA 10/21/16 08:30 11/04/16 23:47 Loperamide HCl (Imodium) 2 mg UNSCH PRN PO DIARRHEA 10/22/16 09:00 10/28/16 09:56 Lisinopril (Prinivil) 10 mg DAILY PO 10/26/16 09:00 11/04/16 11:21 Metoclopramide HCl 5 mg 5 mg Q8H PRN PO NAUSEA 10/27/16 07:15 10/27/16 07:25 Meropenem 1000 mg/ Sodium Chloride 100 ml @ 200 mls/hr Q8H IV 11/01/16 13:00 11/05/16 06:00 Fluconazole/ Sodium Chloride (Diflucan 400 Mg Premix Bag) 200 ml @ 100 mls/hr Q24H IV 11/01/16 21:00 11/04/16 21:55 Oxycodone HCl 5 mg 5 mg Q4H PRN PO pain 11/04/16 12:00 11/04/16 20:40 Vancomycin HCl/ Sodium Chloride (Vancomycin Inj/ NS 500 ml Inj) 517.5 ml @ 250 mls/hr Q12H IV 11/04/16 18:00 11/05/16 06:06 Acetaminophen (Tylenol) 650 mg Q4H PRN PO SEE LABEL COMMENTS 11/04/16 15:45 11/04/16 15:48 Diphenhydramine HCl (Benadryl) 25 mg Q4H PRN PO SEE LABEL COMMENTS 11/04/16 15:45 11/04/16 15:47 Objective Remarks GENERAL: Well-nourished, well-developed patient. SKIN: new rash trunk and legs. HEAD: Normocephalic. EYES: No scleral icterus. No injection or drainage. NECK: Supple, trachea midline. No JVD or lymphadenopathy. LYMPHATIC: No adenopathy. CARDIOVASCULAR: Regular rate and rhythm without murmurs. RESPIRATORY: Breath sounds equal bilaterally. No accessory muscle use. GASTROINTESTINAL: Abdomen soft, non-tender, nondistended. EXTREMITIES: No cyanosis, or edema. NEUROLOGICAL: No obvious focal deficit. Awake, alert, and oriented x3. Assessment/Plan Problem List: (1) AML (acute myeloid leukemia) Status: Acute Plan: 11/05 No TX today. Has rash. ?meds. ID to follow. Start steroid for rash. Flow cyto on BM shows <1% Blasts. Await core bx report. Molecular test results are pending. d/w pt and . Both are very happy. d/w BMT coordinator at [facility]. 11/04: . bone marrow biopsy and aspirate at bedside. continue abx. patient has red raised rash on flanks, none on face or chest. give 2 units pRBC, 1 unit platelet today. 11/03: D303/25. fever overnight. BC no growth. will consult IR to remove port. 11/02: D38/19. fever overnight. await blood cultures. give 1 unit pRBC. will inform ID of additional fever spike. 11/01: D37/18. spiked fever of 100.[address] Galarza, ID advised to stop Zosyn, start Meropenem and continue Vanco. 10/31: D36/17. tolerating Vanco and Zosyn. rash improving. tired of being in hospital. 1 unit platelets and 1 unit pRBC today. plan for bone marrow biopsy on Monday 10/30 Prbc and plat today. No more fevers Tolerating vanco well so far.Clinically looks much better then yesterday. Extensive d/w pt and . 10/29 PRBC and plat todayD/W Dr galarza regarding antibiotics. 10/28: D33/14: afebrile overnight. currently on Zosyn. persistent rash. has not been able to take exjade d/t nausea. will check ferritin 10/27: D32/13. febrile to 101.3 likely due to refusing Dapto and Micafungin last night. + rash on face and trunk. no transfusion today. 10/26: D31/12: No new fevers. Continue IV Abx per ID. Pt feeling overall better. Diarrhea is improved. Await count recovery. No transfusion today. 10/25: D30/11: 2 units irradiated platelets today. Continue current IV Abx per ID. Preliminary micro ++gram positive rods 10/24: D29/10. no transfusion. abx per ID. monitor blood pressure with increased Lisinopril. 10/23: D28/9. no transfusion. continue antibiotics. will increase Lisinopril to 20mg PO daily. 10/22: D27/8; 1 unit platelets. continue abx per ID 10/21: D26/7: 1 unit pRBC. CXR 10/20: D25/6. 1 unit platelets and pRBC. stop IVF. wean Adderall 10/19: D24/5 1 unit platelets. last day of chemotherapy 10/18: D23/4. give 2 units pRBC today. monitor for fever 10/17: D22/3. continue CLAG-M. no fever. 10/16: D21/2 Pt tolerated chemo well yesterday. No fevers. Counts OK. No headache. Continue chemo. Monitor counts, fevers. 10/15 D2 start second cycle of CLAG-M today. D/W side effects and increase morbidity and mortality with the second cycle. He agreed . I will be OOT . Dr Newell will see him till thursday. 10/14: D19. patient started to receive Clarabine but the pump malfunction causing the chemo to spill on the floor. the chemo is being STAT ordered again and will arrive tomorrow morning. 10/13: bone marrow flow shows 70% blasts. d/w patient, repeating induction with CLAG-M chemotherapy or enrolling in a clinical trial. patient would like to try a second induction with CLAG-M. will give Neupogen today and start tomorrow. 10/12: Mildly tachycardic today in the 110's, but no fever. PRBC x 2 ordered today. CIRCULAR STUFFER replacing potassium per protocol for level of 3.2. Will monitor blood counts, heart rate. Plan for repeat BMB on this upcoming week. 10/11: Spiked a fever this morning to 101.8. Will order blood cultures x 2, check UA. No longer tachycardic. Continue IV Abx. Transfuse 1 unit platelets today. 10/10: afebrile today. tolerating blood and platelet transfusions. will keep in ICU another night as he remains tachycardic. 10/09: bone marrow biopsy today. 1 unit platelets, 2 units pRBC. spiked fever 103F. cefepime started. spoke with ID, who advised me to start Daptomycin and Micafungin. transferred to ICU after becoming tachy in 140s 10/08: day 13. 1 unit platelets. bone marrow biopsy tomorrow. 10/07: flow cytometry results returned showing NPM1 + and FLT3 +. I obtained the original pathology again from to double check and the original FLT3 was NEGATIVE. NPM1 mutation was detected 43.4%, KIT mutation not detected. 46XY 10/06: 2 units pRBC today. plan to do bone marrow biopsy AM. 10/05: 1 unit platelets today 10/04: D9. no fever. 10/03: D8. no transfusion. monitor for fever 10/02: Will give 1 unit pRBC's, platelets today. Plan for repeat BMB on 10/10. 10/01: Finished chemotherapy yesterday. Tolerated well. 1 unit irradiated PRBC's to be transfused today. Continue to closely monitor blood counts. 09/30: D5. last day of chemotherapy. will give 1 unit platelets. 09/29: D4. continue chemotherapy. no transfusion. 09/28: D3. 09/27: D2 09/26: Start on CLAG-M chemotherapy for relapsed AML. Received Neupogen yesterday. He spiked a fever this afternoon of 101.3. BC, UA, and CXR ordered. Will start pt on Cefepime. Await BC results. --On 09/18 it was noted that he had a white count at 11k and a platelet count of 76k. Blasts were at 38%. He was brought in to the clinic on 09/24 for a bone marrow biopsy. A CBC was done and showed a white count of 63.7, Hgb 12.2, and platelet count was 33K. The blasts were at 73%. Decision was made at that time to admit for salvage chemo. History: 11/04: AML Diagnosis made. 46XY, +NPM1 mutation detected, FLT3 negative-- indicates favorable prognosis. 11/05-11/28: Initial induction with MELL-C and idarubicin (7+3). STAT Leukapheresis due to leukostasis. On D2, repeat bone marrow showed residual leukemia. 12/06-12/27: Re-induction with FLANG chemotherapy. Repeat bone marrow biopsy negative for residual AML. Patient in Complete Remission 01/06-01/10: C1 consolidation chemotherapy with Mell-C. 02/17-02/21: C2 consolidation chemotherapy with MELL-C. 03/25-03/30: C3 consolidation chemotherapy with MELL-C 04/28-05/02: C4 consolidation chemo with MELL-C (2) Diarrhea Status: Acute Plan: --C. diff negative. --imodium PRN (3) Nausea Status: Acute Plan: likely due to chemotherapy as well as antibiotics --prn Ondansetron -- prn Reglan (4) Hypertension Status: Acute Plan: --on amlodipine, lisinopril, atenolol (5) Fever Status: Acute Plan: --BC + on 10/24 and 10/27; BC no growth on 11/01, 11/02 --port removed 11/03. culture pending --ID following --on Meropenem + Vanco + Fluconazole (6) DVT prophylaxis Status: Acute Plan: -- Thrombocytopenia; will hold off on chemical prophylaxis at this time. (7) Diabetes Status: Acute Plan: --on SSI Novolog (8) Depression Status: Acute Plan: --on Zoloft Assessment 46 y/o male admitted for salvage chemotherapy for relapsed AML. Problem Qualifiers (1) Diarrhea: Qualified Code: R19.7 - Diarrhea, unspecified type (2) Hypertension: Qualified Code: I10 - Essential hypertension (3) Fever: Qualified Code: R50.9 - Fever, unspecified fever cause (4) Diabetes: Qualified Code: E11.9 - Type 2 diabetes mellitus without complication, without long-term current use of insulin Alexandra Olea MD November 05, 2016 09:01
[2016-11-05] MEDS: LISINOPRIL 10 MG TAB PO SCH (09:24)
[2016-11-05] MEDS: INSULIN ASPART SUPPLEMENTAL SCALE SQ SCH ×4 (09:24→21:57)
[2016-11-05] MEDS: SERTRALINE HCL 50 MG TAB PO SCH (09:24)
[2016-11-05] MEDS: amLODIPine BESYLATE 5 MG TAB PO SCH (09:24)
[2016-11-05 11:50] VITALS: BP 119/76; PULSE 81; RESP 20; TEMP 97.1; O2SAT 96
[2016-11-05] MEDS: SODIUM CHLORIDE 0.9% FLUSH 10 ML FLUSH IVF SCH (14:21)
[2016-11-05 15:50] VITALS: BP 106/70; PULSE 90; RESP 20; TEMP 99.1; O2SAT 95
[2016-11-05 20:00] VITALS: BP 135/88; PULSE 87; RESP 17; TEMP 99.1; O2SAT 95
--- NOTE | 2016-11-05 20:16 | HHI.IDPN ---
Subjective Subjective Remarks sp PORT removal PORT clx negative afebrile co non pruritic rash sp BM bx Antibiotics meropenem vanco fluc Allergies: Coded Allergies: Vancomycin (Verified Adverse Reaction, Severe, Diarrhea, 10/29/16) Per pt and his record review he uneventfully took IV vancomycin in December 2015. In october 16-2016 he developped severe diarrhea during vancomycin use, no rash per his account. Objective . Vital Signs Date Time Temp Pulse Resp B/P Pulse Ox O2 Delivery O2 Flow Rate FiO2 11/05/16 15:50 99.1 90 20 106/70 95 11/05/16 11:50 97.1 81 20 119/76 96 11/05/16 07:50 98.2 91 20 139/84 95 11/05/16 06:09 98.8 87 16 137/85 97 11/05/16 00:00 98.6 100 18 141/83 94 11/04/16 20:30 99.7 11/04/16 11/04/16 11/05/16 15:00 23:00 07:00 Intake Total 2005 ml 420 ml Balance 2005 ml 420 ml Intake Oral 1320 ml IV Total 420 ml Other 685 ml # Voids 4 . Laboratory Tests Test 11/04/16 11/05/16 05:30 05:58 White Blood Count 0.0 TH/MM3 0.0 TH/MM3 Red Blood Count 2.41 MIL/MM3 3.05 MIL/MM3 Hemoglobin 6.7 GM/DL 8.4 GM/DL Hematocrit 18.4 % 23.1 % Mean Corpuscular Volume 76.6 FL 75.9 FL Mean Corpuscular Hemoglobin 27.7 PG 27.4 PG Mean Corpuscular Hemoglobin 36.2 % 36.1 % Concent Red Cell Distribution Width 12.7 % 13.5 % Platelet Count 18 TH/MM3 27 TH/MM3 Mean Platelet Volume 8.3 FL 8.1 FL Neutrophils (%) (Auto) % % Lymphocytes (%) (Auto) % % Monocytes (%) (Auto) % % Eosinophils (%) (Auto) % % Basophils (%) (Auto) % % Neutrophils # (Auto) TH/MM3 TH/MM3 Lymphocytes # (Auto) TH/MM3 TH/MM3 Monocytes # (Auto) TH/MM3 TH/MM3 Eosinophils # (Auto) TH/MM3 TH/MM3 Basophils # (Auto) TH/MM3 TH/MM3 CBC Comment AUTO DIFF AUTO DIFF Neutrophils % (Manual) 0 % Band Neutrophils % 0 % Neutrophils # (Manual) 0.0 TH/MM3 0.0 TH/MM3 Differential Comment FINAL DIFF FINAL DIFF MANUAL MANUAL Platelet Estimate RARE LOW Platelet Morphology Comment NORMAL NORMAL Differential Total Cells 2 Counted Lymphocytes % 50 % Monocytes % 50 % Laboratory Tests Test 11/04/16 11/05/16 05:30 05:58 Creatinine 0.48 MG/DL 0.48 MG/DL Estimat Glomerular Filtration 186 ML/MIN 186 ML/MIN Rate Sodium Level 135 MEQ/L Potassium Level 3.8 MEQ/L Chloride Level 93 MEQ/L Carbon Dioxide Level 34.3 MEQ/L Anion Gap 8 MEQ/L Blood Urea Nitrogen 10 MG/DL Random Glucose 208 MG/DL Calcium Level 8.9 MG/DL Microbiology Date/Time Procedure Status Source Growth 11/03/16 16:48 Wound Culture - Final Complete Catheter Tip Other NO GROWTH IN 48 HOURS. Imaging Last Impressions PICC Line Insertion 11/03/16 1135 Signed Impressions: Service Date/Time: Thursday, November 03, 2016 15:49 - CONCLUSION: 1. Uncomplicated central venous Power PICC line placement. 2. The PICC line can be used immediately. Isai Healy Jr., MD Port Line Revision 11/03/16 0000 Signed Impressions: Service Date/Time: Thursday, November 03, 2016 00:00 - CONCLUSION: Uncomplicated port removal as above. The tip of the catheter was sent for culture. Isai Healy Jr., MD Chest X-Ray 11/03/16 0000 Signed Impressions: Service Date/Time: Thursday, November 03, 2016 18:12 - CONCLUSION: 1. No pneumonia or other acute cardiopulmonary disease. 2. Right IJ Ksmcqu-t-Tvaz catheter out in the interim. There is now a right arm PICC with tip in the superior vena cava. Eric Ontiveros MD Head CT 10/14/16 0000 Signed Impressions: Service Date/Time: Friday, October 14, 2016 09:52 - CONCLUSION: 1. No acute intracranial abnormality is identified. 2. Minimal mucoperiosteal thickening in the left maxillary and ethmoid sinus. Eric Collazo MD Physical Exam CONSTITUTIONAL/GENERAL: This is an adequately nourished patient, in no apparent distress. TUBES/LINES/DRAINS: PORT in R chest - site OK, not tender to palpation SKIN: No jaundice, New diffuse rash papular, involving chest, back, neck, upper and lower extremeties no facial flushing today Skin temperature appropriate. Not diaphoretic. EYES: Pupils equal and round and reactive. Extraocular motions intact. No scleral icterus. No injection or drainage. Fundi not examined. CARDIOVASCULAR: Regular rate and rhythm without murmurs, gallops, or rubs. RESPIRATORY/CHEST: Symmetric, unlabored respirations. Clear to auscultation. Breath sounds equal bilaterally. No wheezes, rales, or rhonchi. GASTROINTESTINAL: Abdomen soft, non-tender, not distended. No hepato- splenomegaly, or palpable masses. No guarding. Bowel sounds present. MUSCULOSKELETAL: Extremities without clubbing, cyanosis, or edema. NEUROLOGICAL: lethargic, but easily arousable. Motor and sensory grossly within normal limits. Follows commands. Cognitively sharp. Moves all extremities. PSYCHIATRIC: No obvious anxiety/depression. 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
[2016-11-05 21:06] LABS: MEAN CORPUSCULAR HGB CONC 36.4 % (32.0-36.0)
[2016-11-05] MEDS: ATENOLOL 100 MG TAB PO SCH (21:53)
[2016-11-05] MEDS: DIAZEPAM 10 MG TAB PO PRN (23:31)
[2016-11-05] MEDS: methylPREDNISolone SOD SUCC 40 MG/1 ML VIAL IV PUSH SCH (23:34)
[2016-11-06] VITALS: BP 126/82; PULSE 93; RESP 17; TEMP 99.4; O2SAT 95
[2016-11-06] MEDS: VANCOMYCIN INJ 1,750 MG in SODIUM CHLORID 0.9% 500 ML INJ 500 ML IV SCH ×2 (05:11→18:22)
[2016-11-06] MEDS: MEROPENEM 1000 MG/NS 100 ML IV SCH ×6 (05:12→21:16)
[2016-11-06 05:20] VITALS: BP 127/87; PULSE 83; RESP 17; TEMP 97.7; O2SAT 92
[2016-11-06 05:51] LABS: HEMATOCRIT 26.2 % (39.0-51.0); MEAN CELL VOLUME 75.8 FL (80.0-100.0); MEAN CORPUSCULAR HEMOGLOBIN 27.6 PG (27.0-34.0); PLATELET COUNT 24 TH/MM3 (150-450); RED BLOOD COUNT 3.46 MIL/MM3 (4.50-5.90); RED CELL DISTRIBUTION WIDTH 12.9 % (11.6-17.2)
[2016-11-06 05:58] LABS: BICARBONATE 30.9 MEQ/L (21.0-32.0); POTASSIUM 4.2 MEQ/L (3.5-5.1)
[2016-11-06] MEDS: INSULIN ASPART SUPPLEMENTAL SCALE SQ SCH ×4 (06:11→21:29)
[2016-11-06 07:50] VITALS: BP 129/81; PULSE 87; RESP 20; TEMP 96.5; O2SAT 95
--- NOTE | 2016-11-06 08:12 | PD.ONC.PN ---
Subjective Subjective Remarks still has the rash. no more fevers. c/o weakness. Objective Data Date Time Temp Pulse Resp B/P Pulse Ox O2 Delivery O2 Flow Rate FiO2 11/06/16 05:20 97.7 83 17 127/87 92 11/06/16 00:00 99.4 93 17 126/82 95 11/05/16 20:00 99.1 87 17 135/88 95 11/05/16 15:50 99.1 90 20 106/70 95 11/05/16 11:50 97.1 81 20 119/76 96 Result Diagram: 11/06/16 0510 11/06/16509 Laboratory Results Laboratory Tests Test 11/06/16 05:10 White Blood Count 0.0 TH/MM3 Red Blood Count 3.46 MIL/MM3 Hemoglobin 9.6 GM/DL Hematocrit 26.2 % Mean Corpuscular Volume 75.8 FL Mean Corpuscular Hemoglobin 27.6 PG Mean Corpuscular Hemoglobin 36.4 % Concent Red Cell Distribution Width 12.9 % Platelet Count 24 TH/MM3 Mean Platelet Volume 7.9 FL Neutrophils (%) (Auto) % Lymphocytes (%) (Auto) % Monocytes (%) (Auto) % Eosinophils (%) (Auto) % Basophils (%) (Auto) % Neutrophils # (Auto) TH/MM3 Lymphocytes # (Auto) TH/MM3 Monocytes # (Auto) TH/MM3 Eosinophils # (Auto) TH/MM3 Basophils # (Auto) TH/MM3 CBC Comment Sodium Level 133 MEQ/L Potassium Level 4.2 MEQ/L Chloride Level 93 MEQ/L Carbon Dioxide Level 30.9 MEQ/L Anion Gap 9 MEQ/L Blood Urea Nitrogen 12 MG/DL Creatinine 0.54 MG/DL Estimat Glomerular Filtration 162 ML/MIN Rate Random Glucose 345 MG/DL Calcium Level 9.1 MG/DL Culture Results Microbiology Date/Time Procedure Status Source Growth 11/03/16 16:48 Wound Culture - Final Complete Catheter Tip Other NO GROWTH IN 48 HOURS. Administered Medications Medications (Trade) Dose Ordered Sig/Génesis Route PRN Reason Start Time Stop Time Status Last Admin Dose Admin Acetaminophen (Tylenol) 650 mg Q4H PRN PO TEMP> 100.5F 09/25/16 08:45 11/02/16 09:32 Heparin Sodium (Porcine) (Heparin Central Flush) 500 units UNSCH IVF 09/25/16 08:45 10/30/16 20:03 Sodium Chloride (NS Flush) 5 ml UNSCH PRN IVF SEE PROTOCOL 09/25/16 08:45 10/29/16 04:11 Heparin Sodium (Porcine) (Heparin Central Flush) 250 units UNSCH PRN IVF SEE PROTOCOL 09/25/16 08:45 11/02/16 17:43 Sertraline HCl (Zoloft) 50 mg DAILY PO 09/26/16 09:00 11/05/16 09:24 Alteplase, Recombinant 2 mg 2 mg UNSCH PRN IVF SEE LABEL COMMENTS 09/25/16 10:15 10/10/16 09:09 Ondansetron HCl/ Dextrose (Zofran Inj/D5W Inj) 54 ml @ 216 mls/hr Q8H PRN IV PUSH NAUSEA OR VOMITING 09/25/16 10:30 10/27/16 06:03 Docusate Sodium (Colace) 100 mg TID PO 09/25/16 18:00 Hold 10/19/16 13:32 Atenolol (Tenormin) 100 mg HS PO 10/14/16 21:00 11/05/16 21:53 Amlodipine Besylate (Norvasc) 5 mg DAILY PO 10/15/16 09:00 11/05/16 09:24 Diazepam (Valium) 5 mg Q12H PRN PO MILD ANXIETY 10/20/16 11:15 11/04/16 08:01 Diazepam (Valium) 10 mg HS PRN PO INSOMNIA 10/21/16 08:30 11/05/16 23:31 Loperamide HCl (Imodium) 2 mg UNSCH PRN PO DIARRHEA 10/22/16 09:00 10/28/16 09:56 Lisinopril (Prinivil) 10 mg DAILY PO 10/26/16 09:00 11/05/16 09:24 Metoclopramide HCl 5 mg 5 mg Q8H PRN PO NAUSEA 10/27/16 07:15 10/27/16 07:25 Meropenem/Sodium Chloride (Merrem Inj/NS Inj) 100 ml @ 200 mls/hr Q8H IV 11/01/16 13:00 11/06/16 05:12 Sodium Chloride (NS Flush) DAILY IVF 11/04/16 09:00 11/05/16 14:21 Heparin Sodium (Porcine) (Heparin Central Flush) DAILY IV FLUSH 11/04/16 09:00 11/05/16 14:23 Oxycodone HCl 5 mg 5 mg Q4H PRN PO pain 11/04/16 12:00 11/05/16 21:54 Vancomycin HCl/ Sodium Chloride (Vancomycin Inj/ NS 500 ml Inj) 517.5 ml @ 250 mls/hr Q12H IV 11/04/16 18:00 11/06/16 05:11 Acetaminophen (Tylenol) 650 mg Q4H PRN PO SEE LABEL COMMENTS 11/04/16 15:45 11/04/16 15:48 Diphenhydramine HCl (Benadryl) 25 mg Q4H PRN PO SEE LABEL COMMENTS 11/04/16 15:45 11/04/16 15:47 Methylprednisolone Sodium Succinate (SoluMEDROL INJ) 40 mg Q8H IV PUSH 11/06/16 00:00 11/05/16 23:34 Objective Remarks GENERAL: Well-nourished, well-developed patient. SKIN: Warm and dry. Rash HEAD: Normocephalic. EYES: No scleral icterus. No injection or drainage. NECK: Supple, trachea midline. No JVD or lymphadenopathy. LYMPHATIC: No adenopathy. CARDIOVASCULAR: Regular rate and rhythm without murmurs. RESPIRATORY: Breath sounds equal bilaterally. No accessory muscle use. GASTROINTESTINAL: Abdomen soft, non-tender, nondistended. EXTREMITIES: No cyanosis, or edema. . NEUROLOGICAL: No obvious focal deficit. Awake, alert, and oriented x3. PSYCHIATRIC: Appropriate mood and affect; insight and judgment normal. Assessment/Plan Problem List: (1) AML (acute myeloid leukemia) Status: Acute Plan: 11/06 No TX today. on steroid for rash. d/w Dr Galarza. Core BM bx = no residual leukemia. He is in remission. d/w pt. He is very happy. will call BMT team at [facility]. 11/05 No TX today. Has rash. ?meds. ID to follow. Start steroid for rash. Flow cyto on BM shows <1% Blasts. Await core bx report. Molecular test results are pending. d/w pt and . Both are very happy. d/w BMT coordinator at [facility]. 11/04: . bone marrow biopsy and aspirate at bedside. continue abx. patient has red raised rash on flanks, none on face or chest. give 2 units pRBC, 1 unit platelet today. 11/03: D320. fever overnight. BC no growth. will consult IR to remove port. 11/02: D38/19. fever overnight. await blood cultures. give 1 unit pRBC. will inform ID of additional fever spike. 11/01: D37/18. spiked fever of 100.[address] Galarza, ID advised to stop Zosyn, start Meropenem and continue Vanco. 10/31: D36/17. tolerating Vanco and Zosyn. rash improving. tired of being in hospital. 1 unit platelets and 1 unit pRBC today. plan for bone marrow biopsy on Monday 10/30 Prbc and plat today. No more fevers Tolerating vanco well so far.Clinically looks much better then yesterday. Extensive d/w pt and . 10/29 PRBC and plat todayD/W Dr galarza regarding antibiotics. 10/28: D33/14: afebrile overnight. currently on Zosyn. persistent rash. has not been able to take exjade d/t nausea. will check ferritin 10/27: D32/13. febrile to 101.3 likely due to refusing Dapto and Micafungin last night. + rash on face and trunk. no transfusion today. 10/26: D31/12: No new fevers. Continue IV Abx per ID. Pt feeling overall better. Diarrhea is improved. Await count recovery. No transfusion today. 10/25: D30/11: 2 units irradiated platelets today. Continue current IV Abx per ID. Preliminary micro ++gram positive rods 10/24: D29/10. no transfusion. abx per ID. monitor blood pressure with increased Lisinopril. 10/23: D28/9. no transfusion. continue antibiotics. will increase Lisinopril to 20mg PO daily. 10/22: D27/8; 1 unit platelets. continue abx per ID 10/21: D26/7: 1 unit pRBC. CXR 10/20: D25/6. 1 unit platelets and pRBC. stop IVF. wean Adderall 10/19: D24/5 1 unit platelets. last day of chemotherapy 10/18: D23/4. give 2 units pRBC today. monitor for fever 10/17: D22/3. continue CLAG-M. no fever. 10/16: D21/2 Pt tolerated chemo well yesterday. No fevers. Counts OK. No headache. Continue chemo. Monitor counts, fevers. 10/15 D20/1 start second cycle of CLAG-M today. D/W side effects and increase morbidity and mortality with the second cycle. He agreed . I will be OOT . Dr Newell will see him till thursday. 10/14: D19. patient started to receive Clarabine but the pump malfunction causing the chemo to spill on the floor. the chemo is being STAT ordered again and will arrive tomorrow morning. 10/13: bone marrow flow shows 70% blasts. d/w patient, repeating induction with CLAG-M chemotherapy or enrolling in a clinical trial. patient would like to try a second induction with CLAG-M. will give Neupogen today and start tomorrow. 10/12: Mildly tachycardic today in the 110's, but no fever. PRBC x 2 ordered today. [employer] replacing potassium per protocol for level of 3.2. Will monitor blood counts, heart rate. Plan for repeat BMB on this upcoming week. 10/11: Spiked a fever this morning to 101.8. Will order blood cultures x 2, check UA. No longer tachycardic. Continue IV Abx. Transfuse 1 unit platelets today. 10/10: afebrile today. tolerating blood and platelet transfusions. will keep in ICU another night as he remains tachycardic. 10/09: bone marrow biopsy today. 1 unit platelets, 2 units pRBC. spiked fever 103F. cefepime started. spoke with ID, who advised me to start Daptomycin and Micafungin. transferred to ICU after becoming tachy in 140s 10/08: day 13. 1 unit platelets. bone marrow biopsy tomorrow. 10/07: flow cytometry results returned showing NPM1 + and FLT3 +. I obtained the original pathology again from to double check and the original FLT3 was NEGATIVE. NPM1 mutation was detected 43.4%, KIT mutation not detected. 46XY 10/06: 2 units pRBC today. plan to do bone marrow biopsy AM. 10/05: 1 unit platelets today 10/04: D9. no fever. 10/03: D8. no transfusion. monitor for fever 10/02: Will give 1 unit pRBC's, platelets today. Plan for repeat BMB on 10/10. 10/01: Finished chemotherapy yesterday. Tolerated well. 1 unit irradiated PRBC's to be transfused today. Continue to closely monitor blood counts. 09/30: D5. last day of chemotherapy. will give 1 unit platelets. 09/29: D4. continue chemotherapy. no transfusion. 09/28: D3. 09/27: D2 09/26: Start on CLAG-M chemotherapy for relapsed AML. Received Neupogen yesterday. He spiked a fever this afternoon of 101.3. BC, UA, and CXR ordered. Will start pt on Cefepime. Await BC results. --On 09/18 it was noted that he had a white count at 11k and a platelet count of 76k. Blasts were at 38%. He was brought in to the clinic on 09/24 for a bone marrow biopsy. A CBC was done and showed a white count of 63.7, Hgb 12.2, and platelet count was 33K. The blasts were at 73%. Decision was made at that time to admit for salvage chemo. History: 11/04: AML Diagnosis made. 46XY, +NPM1 mutation detected, FLT3 negative-- indicates favorable prognosis. 11/05-11/28: Initial induction with MELL-C and idarubicin (7+3). STAT Leukapheresis due to leukostasis. On D2, repeat bone marrow showed residual leukemia. 12/06-12/27: Re-induction with FLANG chemotherapy. Repeat bone marrow biopsy negative for residual AML. Patient in Complete Remission 01/06-01/10: C1 consolidation chemotherapy with Mell-C. 02/17-02/21: C2 consolidation chemotherapy with MELL-C. 03/25-03/30: C3 consolidation chemotherapy with MELL-C 04/28-05/02: C4 consolidation chemo with MELL-C (2) Fever Status: Acute Plan: --BC + on 10/24 and 10/27; BC no growth on 11/01, 11/02 --port removed 11/03. culture pending --ID following --on Meropenem + Vanco + Fluconazole (3) Diabetes Status: Acute Plan: --on SSI Novolog Assessment 46 y/o male admitted for salvage chemotherapy for relapsed AML. Problem Qualifiers (1) Fever: Qualified Code: R50.9 - Fever, unspecified fever cause (2) Diabetes: Qualified Code: E11.9 - Type 2 diabetes mellitus without complication, without long-term current use of insulin Alexandra Olea MD November 06, 2016 08:12 Assessment 46 y/o male admitted for salvage chemotherapy for relapsed AML. Problem Qualifiers (1) Diarrhea: Qualified Code: R19.7 - Diarrhea, unspecified type (2) Hypertension: Qualified Code: I10 - Essential hypertension (3) Fever: Qualified Code: R50.9 - Fever, unspecified fever cause (4) Diabetes: Qualified Code: E11.9 - Type 2 diabetes mellitus without complication, without long-term current use of insulin Alexandra Olea MD November 06, 2016 08:12
[2016-11-06 08:31] LABS: WBC DIFF SAMPLE 1
[2016-11-06 08:32] LABS: PLATELET ESTIMATE SMEAR LOW (NORMAL); PLATELET MORPHOLOGY NORMAL (NORMAL); SCAN/DIFF FINAL DIFF MANUAL
[2016-11-06] MEDS: amLODIPine BESYLATE 5 MG TAB PO SCH (09:00)
[2016-11-06] MEDS: SERTRALINE HCL 50 MG TAB PO SCH (09:47)
[2016-11-06] MEDS: LISINOPRIL 10 MG TAB PO SCH (09:47)
[2016-11-06] MEDS: methylPREDNISolone SOD SUCC 40 MG/1 ML VIAL IV PUSH SCH ×2 (09:50→15:40)
[2016-11-06] MEDS: SODIUM CHLORIDE 0.9% FLUSH 10 ML FLUSH IVF SCH (09:50)
[2016-11-06 11:50] VITALS: BP 133/88; PULSE 84; RESP 20; TEMP 95.5; O2SAT 99
[2016-11-06 15:50] VITALS: BP 128/81; PULSE 87; RESP 20; TEMP 96.8; O2SAT 98
--- NOTE | 2016-11-06 19:08 | HHI.IDPN ---
Subjective Subjective Remarks sp PORT removal PORT clx negative afebrile co pruritic rash - worse sp BM bx: complete remission Updated by microlab on previous positive BC - now ID'd as Clostridium tertium Antibiotics meropenem vanco Allergies: Coded Allergies: Vancomycin (Verified Adverse Reaction, Severe, Diarrhea, 10/29/16) Per pt and his record review he uneventfully took IV vancomycin in December 2015. In october 16-2016 he developped severe diarrhea during vancomycin use, no rash per his account. Objective . Vital Signs Date Time Temp Pulse Resp B/P Pulse Ox O2 Delivery O2 Flow Rate FiO2 11/06/16 15:50 96.8 87 20 128/81 98 11/06/16 11:50 95.5 84 20 133/88 99 11/06/16 07:50 96.5 87 20 129/81 95 11/06/16 05:20 97.7 83 17 127/87 92 11/06/16 00:00 99.4 93 17 126/82 95 11/05/16 20:00 99.1 87 17 135/88 95 11/05/16 11/05/16 11/06/16 15:00 23:00 07:00 Intake Total 1221 ml 800 ml 480 ml Balance 1221 ml 800 ml 480 ml Intake Oral 1221 ml 480 ml IV Total 800 ml # Voids 5 3 # Bowel Movements 1 . Laboratory Tests Test 11/05/16 11/06/16 05:58 05:10 White Blood Count 0.0 TH/MM3 0.0 TH/MM3 Red Blood Count 3.05 MIL/MM3 3.46 MIL/MM3 Hemoglobin 8.4 GM/DL 9.6 GM/DL Hematocrit 23.1 % 26.2 % Mean Corpuscular Volume 75.9 FL 75.8 FL Mean Corpuscular Hemoglobin 27.4 PG 27.6 PG Mean Corpuscular Hemoglobin 36.1 % 36.4 % Concent Red Cell Distribution Width 13.5 % 12.9 % Platelet Count 27 TH/MM3 24 TH/MM3 Mean Platelet Volume 8.1 FL 7.9 FL Neutrophils (%) (Auto) % % Lymphocytes (%) (Auto) % % Monocytes (%) (Auto) % % Eosinophils (%) (Auto) % % Basophils (%) (Auto) % % Neutrophils # (Auto) TH/MM3 TH/MM3 Lymphocytes # (Auto) TH/MM3 TH/MM3 Monocytes # (Auto) TH/MM3 TH/MM3 Eosinophils # (Auto) TH/MM3 TH/MM3 Basophils # (Auto) TH/MM3 TH/MM3 CBC Comment AUTO DIFF Differential Total Cells 2 1 Counted Lymphocytes % 50 % 100 % Monocytes % 50 % Neutrophils # (Manual) 0.0 TH/MM3 0.0 TH/MM3 Differential Comment FINAL DIFF FINAL DIFF MANUAL MANUAL Platelet Estimate LOW LOW Platelet Morphology Comment NORMAL NORMAL Laboratory Tests Test 11/05/16 11/06/16 05:58 05:10 Sodium Level 135 MEQ/L 133 MEQ/L Potassium Level 3.8 MEQ/L 4.2 MEQ/L Chloride Level 93 MEQ/L 93 MEQ/L Carbon Dioxide Level 34.3 MEQ/L 30.9 MEQ/L Anion Gap 8 MEQ/L 9 MEQ/L Blood Urea Nitrogen 10 MG/DL 12 MG/DL Creatinine 0.48 MG/DL 0.54 MG/DL Estimat Glomerular Filtration 186 ML/MIN 162 ML/MIN Rate Random Glucose 208 MG/DL 345 MG/DL Calcium Level 8.9 MG/DL 9.1 MG/DL Imaging Last Impressions PICC Line Insertion 11/03/16 1135 Signed Impressions: Service Date/Time: Thursday, November 03, 2016 15:49 - CONCLUSION: 1. Uncomplicated central venous Power PICC line placement. 2. The PICC line can be used immediately. Isai Healy Jr., MD Port Line Revision 11/03/16 0000 Signed Impressions: Service Date/Time: Thursday, November 03, 2016 00:00 - CONCLUSION: Uncomplicated port removal as above. The tip of the catheter was sent for culture. Isai Healy Jr., MD Chest X-Ray 11/03/16 0000 Signed Impressions: Service Date/Time: Thursday, November 03, 2016 18:12 - CONCLUSION: 1. No pneumonia or other acute cardiopulmonary disease. 2. Right IJ Ibrqmz-x-Ptql catheter out in the interim. There is now a right arm PICC with tip in the superior vena cava. Eric Ontiveros MD Head CT 10/14/16 0000 Signed Impressions: Service Date/Time: Friday, October 14, 2016 09:52 - CONCLUSION: 1. No acute intracranial abnormality is identified. 2. Minimal mucoperiosteal thickening in the left maxillary and ethmoid sinus. Eric Collazo MD Physical Exam CONSTITUTIONAL/GENERAL: This is an adequately nourished patient, in no apparent distress. TUBES/LINES/DRAINS: PORT in R chest - site OK, not tender to palpation SKIN: No jaundice, More spread diffuse rash papular, involving chest, back, neck, upper and lower extremeties no facial flushing today Skin temperature appropriate. Not diaphoretic. EYES: Pupils equal and round and reactive. Extraocular motions intact. No scleral icterus. No injection or drainage. Fundi not examined. CARDIOVASCULAR: Regular rate and rhythm without murmurs, gallops, or rubs. RESPIRATORY/CHEST: Symmetric, unlabored respirations. Clear to auscultation. Breath sounds equal bilaterally. No wheezes, rales, or rhonchi. GASTROINTESTINAL: Abdomen soft, non-tender, not distended. No hepato- splenomegaly, or palpable masses. No guarding. Bowel sounds present. MUSCULOSKELETAL: Extremities without clubbing, cyanosis, or edema. NEUROLOGICAL: lethargic, but easily arousable. Motor and sensory grossly within normal limits. Follows commands. Cognitively sharp. Moves all extremities. PSYCHIATRIC: No obvious anxiety/depression. 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
[2016-11-06 20:00] VITALS: BP 152/97; PULSE 83; RESP 18; TEMP 97.7; O2SAT 95
[2016-11-06 21:07] LABS: MEAN CORPUSCULAR HGB CONC 36.5 % (32.0-36.0)
[2016-11-06] MEDS: ATENOLOL 100 MG TAB PO SCH (21:13)
[2016-11-06] MEDS: DIAZEPAM 10 MG TAB PO PRN (21:17)
[2016-11-07] VITALS: BP 146/85; PULSE 95; RESP 18; TEMP 97.8; O2SAT 94
[2016-11-07 04:00] VITALS: BP 144/94; PULSE 84; RESP 16; TEMP 97.6; O2SAT 93
[2016-11-07] MEDS: MEROPENEM 1000 MG/NS 100 ML IV SCH ×2 (04:09)
[2016-11-07] MEDS: DIAZEPAM 5 MG TAB PO PRN ×2 (04:14→11:29)
[2016-11-07] MEDS ORDERED: PHARMACY ORDERED LAB ONE (05:45)
[2016-11-07] MEDS: VANCOMYCIN INJ 1,750 MG in SODIUM CHLORID 0.9% 500 ML INJ 500 ML IV SCH (05:57)
[2016-11-07 06:30] LABS: MEAN CELL VOLUME 75.3 FL (80.0-100.0); MEAN CORPUSCULAR HEMOGLOBIN 27.4 PG (27.0-34.0); RED BLOOD COUNT 3.05 MIL/MM3 (4.50-5.90); RED CELL DISTRIBUTION WIDTH 12.6 % (11.6-17.2)
[2016-11-07 06:32] LABS: HEMO FLAGS AUTO DIFF
[2016-11-07 06:33] LABS: PLATELET COUNT 14 TH/MM3 (150-450)
[2016-11-07] MEDS: INSULIN ASPART SUPPLEMENTAL SCALE SQ SCH ×4 (07:00→20:28)
[2016-11-07 07:02] LABS: BICARBONATE 32.1 MEQ/L (21.0-32.0); POTASSIUM 4.4 MEQ/L (3.5-5.1)
[2016-11-07 07:57] LABS: PLATELET ESTIMATE SMEAR LOW (NORMAL); PLATELET MORPHOLOGY NORMAL (NORMAL); POLYS (SEG NEUTROPHILS) 0 % (16-70); WBC DIFF SAMPLE 3
[2016-11-07 07:58] LABS: SCAN/DIFF FINAL DIFF MANUAL
[2016-11-07 08:00] VITALS: BP 106/62; PULSE 105; RESP 18; TEMP 98; O2SAT 98
[2016-11-07] MEDS: methylPREDNISolone SOD SUCC 40 MG/1 ML VIAL IV PUSH SCH ×3 (08:00→15:27)
[2016-11-07] MEDS: amLODIPine BESYLATE 5 MG TAB PO SCH (09:51)
[2016-11-07] MEDS: ACETAMINOPHEN 325 MG TAB PO PRN (09:51)
[2016-11-07] MEDS: diphenhydrAMINE HCL 25 MG CAP PO PRN (09:51)
[2016-11-07] MEDS: SODIUM CHLORIDE 0.9% FLUSH 10 ML FLUSH IVF SCH (09:52)
[2016-11-07] MEDS: LISINOPRIL 10 MG TAB PO SCH (09:52)
[2016-11-07] MEDS: SERTRALINE HCL 50 MG TAB PO SCH (09:52)
--- NOTE | 2016-11-07 10:55 | PD.ONC.PN ---
Subjective Subjective Remarks c/o persistent rash. No fevers Objective Data Date Time Temp Pulse Resp B/P Pulse Ox O2 Delivery O2 Flow Rate FiO2 11/07/16 04:00 97.6 84 16 144/94 93 11/07/16 00:00 97.8 95 18 146/85 94 11/06/16 23:00 20 11/06/16 20:00 97.7 83 18 152/97 95 11/06/16 15:50 96.8 87 20 128/81 98 11/06/16 11:50 95.5 84 20 133/88 99 Result Diagram: 11/07/16 0555 11/07/16 0555 Laboratory Results Laboratory Tests Test 11/07/16 11/07/16 05:55 08:03 White Blood Count 0.0 TH/MM3 Red Blood Count 3.05 MIL/MM3 Hemoglobin 8.4 GM/DL Hematocrit 23.0 % Mean Corpuscular Volume 75.3 FL Mean Corpuscular Hemoglobin 27.4 PG Mean Corpuscular Hemoglobin 36.5 % Concent Red Cell Distribution Width 12.6 % Platelet Count 14 TH/MM3 Mean Platelet Volume 7.7 FL Neutrophils (%) (Auto) % Lymphocytes (%) (Auto) % Monocytes (%) (Auto) % Eosinophils (%) (Auto) % Basophils (%) (Auto) % Neutrophils # (Auto) TH/MM3 Lymphocytes # (Auto) TH/MM3 Monocytes # (Auto) TH/MM3 Eosinophils # (Auto) TH/MM3 Basophils # (Auto) TH/MM3 CBC Comment AUTO DIFF Differential Total Cells 3 Counted Neutrophils % (Manual) 0 % Lymphocytes % 100 % Neutrophils # (Manual) 0.0 TH/MM3 Differential Comment FINAL DIFF MANUAL Platelet Estimate LOW Platelet Morphology Comment NORMAL Sodium Level 135 MEQ/L Potassium Level 4.4 MEQ/L Chloride Level 97 MEQ/L Carbon Dioxide Level 32.1 MEQ/L Anion Gap 6 MEQ/L Blood Urea Nitrogen 19 MG/DL Creatinine 0.53 MG/DL Estimat Glomerular Filtration 166 ML/MIN Rate Random Glucose 342 MG/DL Calcium Level 9.3 MG/DL Vancomycin Level Trough 9.2 MCG/ML Blood Bank Comment Administered Medications Medications (Trade) Dose Ordered Sig/Génesis Route PRN Reason Start Time Stop Time Status Last Admin Dose Admin Acetaminophen (Tylenol) 650 mg Q4H PRN PO TEMP> 100.5F 09/25/16 08:45 11/02/16 09:32 Heparin Sodium (Porcine) (Heparin Central Flush) 500 units UNSCH IVF 09/25/16 08:45 10/30/16 20:03 Sodium Chloride (NS Flush) 5 ml UNSCH PRN IVF SEE PROTOCOL 09/25/16 08:45 10/29/16 04:11 Heparin Sodium (Porcine) (Heparin Central Flush) 250 units UNSCH PRN IVF SEE PROTOCOL 09/25/16 08:45 11/02/16 17:43 Sertraline HCl (Zoloft) 50 mg DAILY PO 09/26/16 09:00 11/07/16 09:52 Alteplase, Recombinant 2 mg 2 mg UNSCH PRN IVF SEE LABEL COMMENTS 09/25/16 10:15 10/10/16 09:09 Ondansetron HCl/ Dextrose (Zofran Inj/D5W Inj) 54 ml @ 216 mls/hr Q8H PRN IV PUSH NAUSEA OR VOMITING 09/25/16 10:30 10/27/16 06:03 Docusate Sodium (Colace) 100 mg TID PO 09/25/16 18:00 Hold 10/19/16 13:32 Atenolol (Tenormin) 100 mg HS PO 10/14/16 21:00 11/06/16 21:13 Amlodipine Besylate (Norvasc) 5 mg DAILY PO 10/15/16 09:00 11/07/16 09:51 Diazepam (Valium) 5 mg Q12H PRN PO MILD ANXIETY 10/20/16 11:15 11/07/16 04:14 Diazepam (Valium) 10 mg HS PRN PO INSOMNIA 10/21/16 08:30 11/06/16 21:17 Loperamide HCl (Imodium) 2 mg UNSCH PRN PO DIARRHEA 10/22/16 09:00 10/28/16 09:56 Lisinopril (Prinivil) 10 mg DAILY PO 10/26/16 09:00 11/07/16 09:52 Metoclopramide HCl 5 mg 5 mg Q8H PRN PO NAUSEA 10/27/16 07:15 10/27/16 07:25 Meropenem/Sodium Chloride (Merrem Inj/NS Inj) 100 ml @ 200 mls/hr Q8H IV 11/01/16 13:00 11/07/16 04:09 Sodium Chloride (NS Flush) DAILY IVF 11/04/16 09:00 11/07/16 09:52 Heparin Sodium (Porcine) (Heparin Central Flush) DAILY IV FLUSH 11/04/16 09:00 11/05/16 14:23 Oxycodone HCl (Roxicodone) 5 mg Q4H PRN PO pain 11/04/16 12:00 11/06/16 21:12 Acetaminophen (Tylenol) 650 mg Q4H PRN PO SEE LABEL COMMENTS 11/04/16 15:45 11/07/16 09:51 Diphenhydramine HCl (Benadryl) 25 mg Q4H PRN PO SEE LABEL COMMENTS 11/04/16 15:45 11/07/16 09:51 Methylprednisolone Sodium Succinate (SoluMEDROL INJ) 40 mg Q8H IV PUSH 11/06/16 00:00 11/07/16 08:00 Objective Remarks GENERAL: Well-nourished, well-developed patient. SKIN: Warm and dry. macular rash HEAD: Normocephalic. EYES: No scleral icterus. No injection or drainage. NECK: Supple, trachea midline. No JVD or lymphadenopathy. LYMPHATIC: No adenopathy. CARDIOVASCULAR: Regular rate and rhythm without murmurs. RESPIRATORY: Breath sounds equal bilaterally. No accessory muscle use. GASTROINTESTINAL: Abdomen soft, non-tender, nondistended. EXTREMITIES: No cyanosis, or edema. NEUROLOGICAL: No obvious focal deficit. Awake, alert, and oriented x3. PSYCHIATRIC: Appropriate mood and affect; insight and judgment normal. Assessment/Plan Problem List: (1) AML (acute myeloid leukemia) Status: Acute Plan: 11/07 Still has rash. D/w Dr Galarza. She change the a/b D/W BMT team at [facility]. He is now back in remission. Monitor cbc 11/06 No TX today. on steroid for rash. d/w Dr Galarza. Core BM bx = no residual leukemia. He is in remission. d/w pt. He is very happy. will call BMT team at [facility]. 11/05 No TX today. Has rash. ?meds. ID to follow. Start steroid for rash. Flow cyto on BM shows <1% Blasts. Await core bx report. Molecular test results are pending. d/w pt and . Both are very happy. d/w BMT coordinator at [facility]. 11/04: D40/. bone marrow biopsy and aspirate at bedside. continue abx. patient has red raised rash on flanks, none on face or chest. give 2 units pRBC, 1 unit platelet today. 11/03: D320. fever overnight. BC no growth. will consult IR to remove port. 11/02: D38. fever overnight. await blood cultures. give 1 unit pRBC. will inform ID of additional fever spike. 11/01: D37/18. spiked fever of 100.[address] Galarza, ID advised to stop Zosyn, start Meropenem and continue Vanco. 10/31: D36/17. tolerating Vanco and Zosyn. rash improving. tired of being in hospital. 1 unit platelets and 1 unit pRBC today. plan for bone marrow biopsy on Monday 10/30 Prbc and plat today. No more fevers Tolerating vanco well so far.Clinically looks much better then yesterday. Extensive d/w pt and . 10/29 PRBC and plat todayD/W Dr galarza regarding antibiotics. 10/28: D33/14: afebrile overnight. currently on Zosyn. persistent rash. has not been able to take exjade d/t nausea. will check ferritin 10/27: D32/13. febrile to 101.3 likely due to refusing Dapto and Micafungin last night. + rash on face and trunk. no transfusion today. 10/26: D31/12: No new fevers. Continue IV Abx per ID. Pt feeling overall better. Diarrhea is improved. Await count recovery. No transfusion today. 10/25: D30/11: 2 units irradiated platelets today. Continue current IV Abx per ID. Preliminary micro ++gram positive rods 10/24: D29/10. no transfusion. abx per ID. monitor blood pressure with increased Lisinopril. 10/23: D28/9. no transfusion. continue antibiotics. will increase Lisinopril to 20mg PO daily. 10/22: D27/8; 1 unit platelets. continue abx per ID 10/21: D26/7: 1 unit pRBC. CXR 10/20: D25/6. 1 unit platelets and pRBC. stop IVF. wean Adderall 10/19: D24/5 1 unit platelets. last day of chemotherapy 10/18: D23/4. give 2 units pRBC today. monitor for fever 10/17: D22/3. continue CLAG-M. no fever. 10/16: D21/2 Pt tolerated chemo well yesterday. No fevers. Counts OK. No headache. Continue chemo. Monitor counts, fevers. 10/15 D2 start second cycle of CLAG-M today. D/W side effects and increase morbidity and mortality with the second cycle. He agreed . I will be OOT . Dr Newell will see him till thursday. 10/14: D19. patient started to receive Clarabine but the pump malfunction causing the chemo to spill on the floor. the chemo is being STAT ordered again and will arrive tomorrow morning. 10/13: bone marrow flow shows 70% blasts. d/w patient, repeating induction with CLAG-M chemotherapy or enrolling in a clinical trial. patient would like to try a second induction with CLAG-M. will give Neupogen today and start tomorrow. 10/12: Mildly tachycardic today in the 110's, but no fever. PRBC x 2 ordered today. [employer] OFFICER replacing potassium per protocol for level of 3.2. Will monitor blood counts, heart rate. Plan for repeat BMB on this upcoming week. 10/11: Spiked a fever this morning to 101.8. Will order blood cultures x 2, check UA. No longer tachycardic. Continue IV Abx. Transfuse 1 unit platelets today. 10/10: afebrile today. tolerating blood and platelet transfusions. will keep in ICU another night as he remains tachycardic. 10/09: bone marrow biopsy today. 1 unit platelets, 2 units pRBC. spiked fever 103F. cefepime started. spoke with ID, who advised me to start Daptomycin and Micafungin. transferred to ICU after becoming tachy in 140s 10/08: day 13. 1 unit platelets. bone marrow biopsy tomorrow. 10/07: flow cytometry results returned showing NPM1 + and FLT3 +. I obtained the original pathology again from to double check and the original FLT3 was NEGATIVE. NPM1 mutation was detected 43.4%, KIT mutation not detected. 46XY 10/06: 2 units pRBC today. plan to do bone marrow biopsy AM. 10/05: 1 unit platelets today 10/04: D9. no fever. 10/03: D8. no transfusion. monitor for fever 10/02: Will give 1 unit pRBC's, platelets today. Plan for repeat BMB on 10/10. 10/01: Finished chemotherapy yesterday. Tolerated well. 1 unit irradiated PRBC's to be transfused today. Continue to closely monitor blood counts. 09/30: D5. last day of chemotherapy. will give 1 unit platelets. 09/29: D4. continue chemotherapy. no transfusion. 09/28: D3. 09/27: D2 09/26: Start on CLAG-M chemotherapy for relapsed AML. Received Neupogen yesterday. He spiked a fever this afternoon of 101.3. BC, UA, and CXR ordered. Will start pt on Cefepime. Await BC results. --On 09/18 it was noted that he had a white count at 11k and a platelet count of 76k. Blasts were at 38%. He was brought in to the clinic on 09/24 for a bone marrow biopsy. A CBC was done and showed a white count of 63.7, Hgb 12.2, and platelet count was 33K. The blasts were at 73%. Decision was made at that time to admit for salvage chemo. History: 11/04: AML Diagnosis made. 46XY, +NPM1 mutation detected, FLT3 negative-- indicates favorable prognosis. 11/05-11/28: Initial induction with MELL-C and idarubicin (7+3). STAT Leukapheresis due to leukostasis. On D25, repeat bone marrow showed residual leukemia. 12/06-12/27: Re-induction with FLANG chemotherapy. Repeat bone marrow biopsy negative for residual AML. Patient in Complete Remission 01/06-01/10: C1 consolidation chemotherapy with Mell-C. 02/17-02/21: C2 consolidation chemotherapy with MELL-C. 03/25-03/30: C3 consolidation chemotherapy with MELL-C 04/28-05/02: C4 consolidation chemo with MELL-C (2) Fever Status: Acute Plan: --BC + on 10/24 and 10/27; BC no growth on 11/01, 11/02 --port removed 11/03. culture pending --ID following --on Meropenem + Vanco + Fluconazole (3) Diabetes Status: Acute Plan: --on SSI Novolog Assessment 46 y/o male admitted for salvage chemotherapy for relapsed AML. Problem Qualifiers (1) Fever: Qualified Code: R50.9 - Fever, unspecified fever cause (2) Diabetes: Qualified Code: E11.9 - Type 2 diabetes mellitus without complication, without long-term current use of insulin Alexandra Olea MD November 07, 2016 10:55
--- NOTE | 2016-11-07 13:14 | HHI.IDPN ---
Subjective Subjective Remarks afebrile co rash - denies itching sp BM bx: complete remission co malaise, sleepiness Updated by microlab on previous positive BC - now ID'd as Clostridium tertium Antibiotics meropenem vanco Allergies: Coded Allergies: Vancomycin (Verified Adverse Reaction, Severe, Diarrhea, 10/29/16) Per pt and his record review he uneventfully took IV vancomycin in December 2015. In october 16-2016 he developped severe diarrhea during vancomycin use, no rash per his account. Objective . Vital Signs Date Time Temp Pulse Resp B/P Pulse Ox O2 Delivery O2 Flow Rate FiO2 11/07/16 04:00 97.6 84 16 144/94 93 11/07/16 00:00 97.8 95 18 146/85 94 11/06/16 23:00 20 11/06/16 20:00 97.7 83 18 152/97 95 11/06/16 15:50 96.8 87 20 128/81 98 11/06/16 11/06/16 11/07/16 15:00 23:00 07:00 Intake Total 1220 ml 1081 ml Balance 1220 ml 1081 ml Intake Oral 1220 ml 500 ml IV Total 581 ml # Voids 2 3 # Bowel Movements 1 . Laboratory Tests Test 11/06/16 11/07/16 05:10 05:55 White Blood Count 0.0 TH/MM3 0.0 TH/MM3 Red Blood Count 3.46 MIL/MM3 3.05 MIL/MM3 Hemoglobin 9.6 GM/DL 8.4 GM/DL Hematocrit 26.2 % 23.0 % Mean Corpuscular Volume 75.8 FL 75.3 FL Mean Corpuscular Hemoglobin 27.6 PG 27.4 PG Mean Corpuscular Hemoglobin 36.4 % 36.5 % Concent Red Cell Distribution Width 12.9 % 12.6 % Platelet Count 24 TH/MM3 14 TH/MM3 Mean Platelet Volume 7.9 FL 7.7 FL Neutrophils (%) (Auto) % % Lymphocytes (%) (Auto) % % Monocytes (%) (Auto) % % Eosinophils (%) (Auto) % % Basophils (%) (Auto) % % Neutrophils # (Auto) TH/MM3 TH/MM3 Lymphocytes # (Auto) TH/MM3 TH/MM3 Monocytes # (Auto) TH/MM3 TH/MM3 Eosinophils # (Auto) TH/MM3 TH/MM3 Basophils # (Auto) TH/MM3 TH/MM3 CBC Comment AUTO DIFF Differential Total Cells 1 3 Counted Lymphocytes % 100 % 100 % Neutrophils # (Manual) 0.0 TH/MM3 0.0 TH/MM3 Differential Comment FINAL DIFF FINAL DIFF MANUAL MANUAL Platelet Estimate LOW LOW Platelet Morphology Comment NORMAL NORMAL Neutrophils % (Manual) 0 % Laboratory Tests Test 11/06/16 11/07/16 05:10 05:55 Sodium Level 133 MEQ/L 135 MEQ/L Potassium Level 4.2 MEQ/L 4.4 MEQ/L Chloride Level 93 MEQ/L 97 MEQ/L Carbon Dioxide Level 30.9 MEQ/L 32.1 MEQ/L Anion Gap 9 MEQ/L 6 MEQ/L Blood Urea Nitrogen 12 MG/DL 19 MG/DL Creatinine 0.54 MG/DL 0.53 MG/DL Estimat Glomerular Filtration 162 ML/MIN 166 ML/MIN Rate Random Glucose 345 MG/DL 342 MG/DL Calcium Level 9.1 MG/DL 9.3 MG/DL Imaging Last Impressions PICC Line Insertion 11/03/16 1135 Signed Impressions: Service Date/Time: Thursday, November 03, 2016 15:49 - CONCLUSION: 1. Uncomplicated central venous Power PICC line placement. 2. The PICC line can be used immediately. Isai Healy Jr., MD Port Line Revision 11/03/16 0000 Signed Impressions: Service Date/Time: Thursday, November 03, 2016 00:00 - CONCLUSION: Uncomplicated port removal as above. The tip of the catheter was sent for culture. Isai Healy Jr., MD Chest X-Ray 11/03/16 0000 Signed Impressions: Service Date/Time: Thursday, November 03, 2016 18:12 - CONCLUSION: 1. No pneumonia or other acute cardiopulmonary disease. 2. Right IJ [id number] catheter out in the interim. There is now a right arm PICC with tip in the superior vena cava. Eric Ontiveros MD Head CT 10/14/16 0000 Signed Impressions: Service Date/Time: Friday, October 14, 2016 09:52 - CONCLUSION: 1. No acute intracranial abnormality is identified. 2. Minimal mucoperiosteal thickening in the left maxillary and ethmoid sinus. Eric Collazo MD Physical Exam CONSTITUTIONAL/GENERAL: This is an adequately nourished patient, in no apparent distress. Seems very tired TUBES/LINES/DRAINS: PORT in R chest - site OK, not tender to palpation SKIN: No jaundice, diffuse rash papular, involving chest, back, neck, upper and lower extremeties appers less bright I dont see much new elements compared with yday no facial flushing today Skin temperature appropriate. Not diaphoretic. EYES: Pupils equal and round and reactive. Extraocular motions intact. No scleral icterus. No injection or drainage. Fundi not examined. CARDIOVASCULAR: Regular rate and rhythm without murmurs, gallops, or rubs. RESPIRATORY/CHEST: Symmetric, unlabored respirations. Clear to auscultation. Breath sounds equal bilaterally. No wheezes, rales, or rhonchi. GASTROINTESTINAL: Abdomen soft, non-tender, not distended. No hepato- splenomegaly, or palpable masses. No guarding. Bowel sounds present. MUSCULOSKELETAL: Extremities without clubbing, cyanosis, or edema. NEUROLOGICAL: lethargic, arousable briefly. Follows commands. Moves all extremities. PSYCHIATRIC: No obvious anxiety/depression. 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
[2016-11-07] MEDS: PIPERACIL-TAZO 3.375 GM PREMIX 50 ML IV SCH ×2 (14:25→20:17)
[2016-11-07 15:56] VITALS: BP 128/83; PULSE 72; RESP 18; TEMP 97.3; O2SAT 99
[2016-11-07 20:00] VITALS: BP 145/91; PULSE 89; RESP 18; TEMP 97.9; O2SAT 97
[2016-11-07] MEDS: ATENOLOL 100 MG TAB PO SCH (20:18)
[2016-11-07] MEDS: DIAZEPAM 10 MG TAB PO PRN (20:20)
[2016-11-08] VITALS: BP 118/75; PULSE 76; RESP 18; TEMP 97.8; O2SAT 98
[2016-11-08] MEDS: methylPREDNISolone SOD SUCC 40 MG/1 ML VIAL IV PUSH SCH ×3 (00:57→18:06)
[2016-11-08] MEDS: PIPERACIL-TAZO 3.375 GM PREMIX 50 ML IV SCH ×4 (00:58→22:19)
[2016-11-08 04:00] VITALS: BP 148/97; PULSE 78; RESP 18; TEMP 98.1; O2SAT 98
[2016-11-08 06:44] LABS: HEMATOCRIT 23.2 % (39.0-51.0); MEAN CELL VOLUME 75.2 FL (80.0-100.0); MEAN CORPUSCULAR HEMOGLOBIN 26.9 PG (27.0-34.0); MEAN CORPUSCULAR HGB CONC 35.7 % (32.0-36.0); RED BLOOD COUNT 3.08 MIL/MM3 (4.50-5.90); RED CELL DISTRIBUTION WIDTH 12.5 % (11.6-17.2)
[2016-11-08 06:53] LABS: HEMO FLAGS AUTO DIFF
[2016-11-08 06:55] LABS: PLATELET COUNT 18 TH/MM3 (150-450)
[2016-11-08] MEDS: INSULIN ASPART SUPPLEMENTAL SCALE SQ SCH ×4 (07:00→20:37)
[2016-11-08] MEDS ORDERED: SODIUM CHLOR 0.9% 250 ML INJ 250 ML IV ONE (08:00)
[2016-11-08 08:14] VITALS: BP 131/93; PULSE 77; RESP 16; TEMP 95.8; O2SAT 98
[2016-11-08 08:34] LABS: WBC DIFF SAMPLE 1
[2016-11-08 08:35] LABS: PLATELET ESTIMATE SMEAR RARE (NORMAL); PLATELET MORPHOLOGY NORMAL (NORMAL); SCAN/DIFF FINAL DIFF MANUAL
[2016-11-08] MEDS: SODIUM CHLORIDE 0.9% FLUSH 10 ML FLUSH IVF SCH (09:00)
[2016-11-08] MEDS: SERTRALINE HCL 50 MG TAB PO SCH (10:18)
[2016-11-08] MEDS: diphenhydrAMINE HCL 25 MG CAP PO PRN (10:18)
[2016-11-08] MEDS: amLODIPine BESYLATE 5 MG TAB PO SCH (10:18)
[2016-11-08] MEDS: LISINOPRIL 10 MG TAB PO SCH (10:18)
[2016-11-08] MEDS: ACETAMINOPHEN 325 MG TAB PO PRN (10:19)
[2016-11-08] MEDS: DIAZEPAM 5 MG TAB PO PRN (11:48)
[2016-11-08 11:53] VITALS: BP 139/87; PULSE 80; RESP 16; TEMP 97.5; O2SAT 99
--- NOTE | 2016-11-08 11:57 | PD.ONC.PN ---
Subjective Subjective Remarks Afebrile overnight. Rash improving with steroids. Difficulty sleeping. Objective Data Date Time Temp Pulse Resp B/P Pulse Ox O2 Delivery O2 Flow Rate FiO2 11/08/16 08:14 95.8 77 16 131/93 98 11/08/16 04:00 98.1 78 18 148/97 98 11/08/16 00:00 97.8 76 18 118/75 98 11/07/16 21:00 18 11/07/16 20:00 97.9 89 18 145/91 97 11/07/16 15:56 97.3 72 18 128/83 99 11/08/16 11/08/16 11/08/16 07:00 15:00 23:00 Intake Total 240 ml Balance 240 ml Result Diagram: 11/08/16 0608 11/08/16 0608 Laboratory Results Laboratory Tests Test 11/08/16 11/08/16 06:08 07:40 White Blood Count 0.0 TH/MM3 Red Blood Count 3.08 MIL/MM3 Hemoglobin 8.3 GM/DL Hematocrit 23.2 % Mean Corpuscular Volume 75.2 FL Mean Corpuscular Hemoglobin 26.9 PG Mean Corpuscular Hemoglobin 35.7 % Concent Red Cell Distribution Width 12.5 % Platelet Count 18 TH/MM3 Mean Platelet Volume 7.3 FL Neutrophils (%) (Auto) % Lymphocytes (%) (Auto) % Monocytes (%) (Auto) % Eosinophils (%) (Auto) % Basophils (%) (Auto) % Neutrophils # (Auto) TH/MM3 Lymphocytes # (Auto) TH/MM3 Monocytes # (Auto) TH/MM3 Eosinophils # (Auto) TH/MM3 Basophils # (Auto) TH/MM3 CBC Comment AUTO DIFF Differential Total Cells 1 Counted Lymphocytes % 100 % Neutrophils # (Manual) 0.0 TH/MM3 Differential Comment FINAL DIFF MANUAL Platelet Estimate RARE Platelet Morphology Comment NORMAL Red Cell Morphology Comment NORMAL Creatinine 0.63 MG/DL Estimat Glomerular Filtration 136 ML/MIN Rate Blood Bank Comment Administered Medications Medications (Trade) Dose Ordered Sig/Génesis Route PRN Reason Start Time Stop Time Status Last Admin Dose Admin Acetaminophen (Tylenol) 650 mg Q4H PRN PO TEMP> 100.5F 09/25/16 08:45 11/02/16 09:32 Heparin Sodium (Porcine) (Heparin Central Flush) 500 units UNSCH IVF 09/25/16 08:45 10/30/16 20:03 Sodium Chloride (NS Flush) 5 ml UNSCH PRN IVF SEE PROTOCOL 09/25/16 08:45 10/29/16 04:11 Heparin Sodium (Porcine) (Heparin Central Flush) 250 units UNSCH PRN IVF SEE PROTOCOL 09/25/16 08:45 11/02/16 17:43 Sertraline HCl (Zoloft) 50 mg DAILY PO 09/26/16 09:00 11/08/16 10:18 Alteplase, Recombinant 2 mg 2 mg UNSCH PRN IVF SEE LABEL COMMENTS 09/25/16 10:15 10/10/16 09:09 Ondansetron HCl/ Dextrose (Zofran Inj/D5W Inj) 54 ml @ 216 mls/hr Q8H PRN IV PUSH NAUSEA OR VOMITING 09/25/16 10:30 10/27/16 06:03 Docusate Sodium (Colace) 100 mg TID PO 09/25/16 18:00 Hold 10/19/16 13:32 Atenolol (Tenormin) 100 mg HS PO 10/14/16 21:00 11/07/16 20:18 Amlodipine Besylate (Norvasc) 5 mg DAILY PO 10/15/16 09:00 11/08/16 10:18 Diazepam (Valium) 5 mg Q12H PRN PO MILD ANXIETY 10/20/16 11:15 11/08/16 11:48 Diazepam (Valium) 10 mg HS PRN PO INSOMNIA 10/21/16 08:30 11/07/16 20:20 Loperamide HCl (Imodium) 2 mg UNSCH PRN PO DIARRHEA 10/22/16 09:00 10/28/16 09:56 Lisinopril (Prinivil) 10 mg DAILY PO 10/26/16 09:00 11/08/16 10:18 Metoclopramide HCl (Reglan) 5 mg Q8H PRN PO NAUSEA 10/27/16 07:15 10/27/16 07:25 Sodium Chloride (NS Flush) DAILY IVF 11/04/16 09:00 11/07/16 09:52 Heparin Sodium (Porcine) (Heparin Central Flush) DAILY IV FLUSH 11/04/16 09:00 11/05/16 14:23 Oxycodone HCl (Roxicodone) 5 mg Q4H PRN PO pain 11/04/16 12:00 11/07/16 20:18 Acetaminophen (Tylenol) 650 mg Q4H PRN PO SEE LABEL COMMENTS 11/04/16 15:45 11/08/16 10:19 Diphenhydramine HCl (Benadryl) 25 mg Q4H PRN PO SEE LABEL COMMENTS 11/04/16 15:45 11/08/16 10:18 Methylprednisolone Sodium Succinate 40 mg 40 mg Q8H IV PUSH 11/06/16 00:00 11/08/16 10:18 Piperacillin Sod/ Tazobactam Sod (Zosyn 3.375 Gm Premix) 50 ml @ 100 mls/hr Q6H IV 11/07/16 13:00 11/08/16 11:52 Objective Remarks GENERAL: Middle aged male, sitting up in bed in nad. SKIN: Warm and dry. PICC line, right arm, site clean without bleeding. red raised rash on flanks, back. HEAD: Normocephalic. EYES: No injection or drainage. NECK: Supple, trachea midline. CARDIOVASCULAR: Regular rate and rhythm RESPIRATORY: Breath sounds equal bilaterally. No accessory muscle use. GASTROINTESTINAL: Abdomen soft, non-tender, nondistended. EXTREMITIES: No cyanosis NEUROLOGICAL: No obvious focal deficit. Awake, alert, and oriented x3. Assessment/Plan Problem List: (1) AML (acute myeloid leukemia) Status: Acute Plan: 11/08: Platelet transfusion today. Rash improving with steroids. 11/07 Still has rash. D/w Dr Corona. She change the a/b D/W BMT team at [facility]. He is now back in remission. Monitor cbc 11/06 No TX today. on steroid for rash. d/w Dr Corona. Core BM bx = no residual leukemia. He is in remission. d/w pt. He is very happy. will call BMT team at [facility]. 11/05 No TX today. Has rash. ?meds. ID to follow. Start steroid for rash. Flow cyto on BM shows <1% Blasts. Await core bx report. Molecular test results are pending. d/w pt and . Both are very happy. d/w BMT coordinator at [facility]. 11/04: D40. bone marrow biopsy and aspirate at bedside. continue abx. patient has red raised rash on flanks, none on face or chest. give 2 units pRBC, 1 unit platelet today. 11/03: D320. fever overnight. BC no growth. will consult IR to remove port. 11/02: D38/19. fever overnight. await blood cultures. give 1 unit pRBC. will inform ID of additional fever spike. 11/01: D37/18. spiked fever of 100.[address] Corona, ID advised to stop Zosyn, start Meropenem and continue Vanco. 10/31: D36/17. tolerating Vanco and Zosyn. rash improving. tired of being in hospital. 1 unit platelets and 1 unit pRBC today. plan for bone marrow biopsy on Monday 10/30 Prbc and plat today. No more fevers Tolerating vanco well so far.Clinically looks much better then yesterday. Extensive d/w pt and . 10/29 PRBC and plat todayD/W Dr corona regarding antibiotics. 10/28: D33/14: afebrile overnight. currently on Zosyn. persistent rash. has not been able to take exjade d/t nausea. will check ferritin 10/27: D32/13. febrile to 101.3 likely due to refusing Dapto and Micafungin last night. + rash on face and trunk. no transfusion today. 10/26: D31/12: No new fevers. Continue IV Abx per ID. Pt feeling overall better. Diarrhea is improved. Await count recovery. No transfusion today. 10/25: D30/11: 2 units irradiated platelets today. Continue current IV Abx per ID. Preliminary micro ++gram positive rods 10/24: D29/10. no transfusion. abx per ID. monitor blood pressure with increased Lisinopril. 10/23: D28/9. no transfusion. continue antibiotics. will increase Lisinopril to 20mg PO daily. 10/22: D27/8; 1 unit platelets. continue abx per ID 10/21: D26/7: 1 unit pRBC. CXR 10/20: D25/6. 1 unit platelets and pRBC. stop IVF. wean Adderall 10/19: D24/5 1 unit platelets. last day of chemotherapy 10/18: D23/4. give 2 units pRBC today. monitor for fever 10/17: D22/3. continue CLAG-M. no fever. 10/16: D21/2 Pt tolerated chemo well yesterday. No fevers. Counts OK. No headache. Continue chemo. Monitor counts, fevers. 10/15 D20/1 start second cycle of CLAG-M today. D/W side effects and increase morbidity and mortality with the second cycle. He agreed . I will be OOT . Dr Newell will see him till thursday. 10/14: D19. patient started to receive Clarabine but the pump malfunction causing the chemo to spill on the floor. the chemo is being STAT ordered again and will arrive tomorrow morning. 10/13: bone marrow flow shows 70% blasts. d/w patient, repeating induction with CLAG-M chemotherapy or enrolling in a clinical trial. patient would like to try a second induction with CLAG-M. will give Neupogen today and start tomorrow. 10/12: Mildly tachycardic today in the 110's, but no fever. PRBC x 2 ordered today. SAND ANALYST replacing potassium per protocol for level of 3.2. Will monitor blood counts, heart rate. Plan for repeat BMB on this upcoming week. 10/11: Spiked a fever this morning to 101.8. Will order blood cultures x 2, check UA. No longer tachycardic. Continue IV Abx. Transfuse 1 unit platelets today. 10/10: afebrile today. tolerating blood and platelet transfusions. will keep in ICU another night as he remains tachycardic. 10/09: bone marrow biopsy today. 1 unit platelets, 2 units pRBC. spiked fever 103F. cefepime started. spoke with ID, who advised me to start Daptomycin and Micafungin. transferred to ICU after becoming tachy in 140s 10/08: day 13. 1 unit platelets. bone marrow biopsy tomorrow. 10/07: flow cytometry results returned showing NPM1 + and FLT3 +. I obtained the original pathology again from to double check and the original FLT3 was NEGATIVE. NPM1 mutation was detected 43.4%, KIT mutation not detected. 46XY 10/06: 2 units pRBC today. plan to do bone marrow biopsy AM. 10/05: 1 unit platelets today 10/04: D9. no fever. 10/03: D8. no transfusion. monitor for fever 10/02: Will give 1 unit pRBC's, platelets today. Plan for repeat BMB on 10/10. 10/01: Finished chemotherapy yesterday. Tolerated well. 1 unit irradiated PRBC's to be transfused today. Continue to closely monitor blood counts. 09/30: D5. last day of chemotherapy. will give 1 unit platelets. 09/29: D4. continue chemotherapy. no transfusion. 09/28: D3. 09/27: D2 09/26: Start on CLAG-M chemotherapy for relapsed AML. Received Neupogen yesterday. He spiked a fever this afternoon of 101.3. BC, UA, and CXR ordered. Will start pt on Cefepime. Await BC results. --On 09/18 it was noted that he had a white count at 11k and a platelet count of 76k. Blasts were at 38%. He was brought in to the clinic on 09/24 for a bone marrow biopsy. A CBC was done and showed a white count of 63.7, Hgb 12.2, and platelet count was 33K. The blasts were at 73%. Decision was made at that time to admit for salvage chemo. History: 11/04: AML Diagnosis made. 46XY, +NPM1 mutation detected, FLT3 negative-- indicates favorable prognosis. 11/05-11/28: Initial induction with MELL-C and idarubicin (7+3). STAT Leukapheresis due to leukostasis. On D2, repeat bone marrow showed residual leukemia. 12/06-12/27: Re-induction with FLANG chemotherapy. Repeat bone marrow biopsy negative for residual AML. Patient in Complete Remission 01/06-01/10: C1 consolidation chemotherapy with Mell-C. 02/17-02/21: C2 consolidation chemotherapy with MELL-C. 03/25-03/30: C3 consolidation chemotherapy with MELL-C 04/28-05/02: C4 consolidation chemo with MELL-C (2) Fever Status: Acute Plan: --BC + on 10/24 and 10/27; BC no growth on 11/01, 11/02 --port removed 11/03. culture pending --ID following --on Meropenem + Vanco + Fluconazole (3) Diabetes Status: Acute Plan: --on SSI Novolog Assessment 46 y/o male admitted for salvage chemotherapy for relapsed AML. Attending Statement The exam, history, and the medical decision-making described in the above note were completed with the assistance of the mid-level provider. I reviewed and agree with the findings presented. I attest that I had a [id number] encounter with the patient on the same day, and personally performed and documented my assessment and findings in the medical record. Still tired. No bleeding. Rash is better. Transfuse platelet today. Continue supportive care. Problem Qualifiers (1) Fever: Qualified Code: R50.9 - Fever, unspecified fever cause (2) Diabetes: Qualified Code: E11.9 - Type 2 diabetes mellitus without complication, without long-term current use of insulin Valarie Lopez November 08, 2016 11:57 Lamine Zelaya MD November 08, 2016 12:07
[2016-11-08 16:12] VITALS: BP 115/67; PULSE 88; RESP 16; TEMP 98.1; O2SAT 97
[2016-11-08] MEDS: VANCOMYCIN INJ 2,000 MG in SODIUM CHLORID 0.9% 500 ML INJ 500 ML IV SCH (18:03)
[2016-11-08 20:00] VITALS: BP 156/100; PULSE 85; RESP 17; TEMP 97.6; O2SAT 98
[2016-11-08] MEDS: ATENOLOL 100 MG TAB PO SCH (20:30)
[2016-11-08] MEDS: DIAZEPAM 10 MG TAB PO PRN (20:32)
[2016-11-09] VITALS: BP 148/91; PULSE 93; RESP 18; TEMP 97.6; O2SAT 98
[2016-11-09] MEDS: methylPREDNISolone SOD SUCC 40 MG/1 ML VIAL IV PUSH SCH ×2 (01:25→10:33)
[2016-11-09 04:00] VITALS: BP 150/91; PULSE 81; RESP 18; TEMP 98; O2SAT 96
[2016-11-09] MEDS: PIPERACIL-TAZO 3.375 GM PREMIX 50 ML IV SCH ×4 (05:36→22:18)
[2016-11-09 05:53] LABS: HEMATOCRIT 22.9 % (39.0-51.0); MEAN CORPUSCULAR HEMOGLOBIN 26.7 PG (27.0-34.0); MEAN CORPUSCULAR HGB CONC 35.5 % (32.0-36.0); PLATELET COUNT 34 TH/MM3 (150-450); RED BLOOD COUNT 3.05 MIL/MM3 (4.50-5.90); RED CELL DISTRIBUTION WIDTH 12.6 % (11.6-17.2)
[2016-11-09] MEDS: VANCOMYCIN INJ 2,000 MG in SODIUM CHLORID 0.9% 500 ML INJ 500 ML IV SCH ×2 (06:05→18:00)
[2016-11-09 06:19] LABS: HEMO FLAGS AUTO DIFF
[2016-11-09 06:32] LABS: ALKALINE PHOSPHATASE 129 U/L (45-117); ALT (GPT) 23 U/L (12-78); ANION GAP 7 MEQ/L (5-15); AST (GOT) 11 U/L (15-37); BICARBONATE 34.1 MEQ/L (21.0-32.0); BLOOD UREA NITROGEN 16 MG/DL (7-18); CHLORIDE 93 MEQ/L (98-107); GLOMERULAR FILTRATION RATE 147 ML/MIN (>89); POTASSIUM 4.5 MEQ/L (3.5-5.1); SODIUM (NA) 134 MEQ/L (136-145); TOTAL BILIRUBIN ADULT 0.5 MG/DL (0.2-1.0)
[2016-11-09] MEDS: INSULIN ASPART SUPPLEMENTAL SCALE SQ SCH ×5 (07:21→20:51)
[2016-11-09] MEDS: SODIUM CHLORIDE 0.9% FLUSH 10 ML FLUSH IVF SCH (09:00)
[2016-11-09] MEDS: amLODIPine BESYLATE 5 MG TAB PO SCH (09:00)
[2016-11-09] MEDS: SERTRALINE HCL 50 MG TAB PO SCH (10:30)
[2016-11-09] MEDS: LISINOPRIL 10 MG TAB PO SCH (10:30)
--- NOTE | 2016-11-09 10:38 | PD.ONC.PN ---
Subjective Subjective Remarks Afebrile overnight. Pt with headache this am. He states he has not yet asked for something for pain. Still c/o difficulty sleeping with steroids. Objective Data Date Time Temp Pulse Resp B/P Pulse Ox O2 Delivery O2 Flow Rate FiO2 11/09/16 04:00 98.0 81 18 150/91 96 11/09/16 00:00 97.6 93 18 148/91 98 11/08/16 22:21 18 11/08/16 20:00 97.6 85 17 156/100 98 11/08/16 16:12 98.1 88 16 115/67 97 11/08/16 11:53 97.5 80 16 139/87 99 11/09/16 11/09/16 11/09/16 07:00 15:00 23:00 Intake Total 285 ml Balance 285 ml Result Diagram: 11/09/16 0536 11/09/16 0536 Laboratory Results Laboratory Tests Test 11/09/16 05:36 White Blood Count 0.0 TH/MM3 Red Blood Count 3.05 MIL/MM3 Hemoglobin 8.1 GM/DL Hematocrit 22.9 % Mean Corpuscular Volume 75.0 FL Mean Corpuscular Hemoglobin 26.7 PG Mean Corpuscular Hemoglobin 35.5 % Concent Red Cell Distribution Width 12.6 % Platelet Count 34 TH/MM3 Mean Platelet Volume 7.1 FL Neutrophils (%) (Auto) % Lymphocytes (%) (Auto) % Monocytes (%) (Auto) % Eosinophils (%) (Auto) % Basophils (%) (Auto) % Neutrophils # (Auto) TH/MM3 Lymphocytes # (Auto) TH/MM3 Monocytes # (Auto) TH/MM3 Eosinophils # (Auto) TH/MM3 Basophils # (Auto) TH/MM3 CBC Comment AUTO DIFF Sodium Level 134 MEQ/L Potassium Level 4.5 MEQ/L Chloride Level 93 MEQ/L Carbon Dioxide Level 34.1 MEQ/L Anion Gap 7 MEQ/L Blood Urea Nitrogen 16 MG/DL Creatinine 0.59 MG/DL Estimat Glomerular Filtration 147 ML/MIN Rate Random Glucose 402 MG/DL Calcium Level 9.1 MG/DL Total Bilirubin 0.5 MG/DL Aspartate Amino Transf 11 U/L (AST/SGOT) Alanine Aminotransferase 23 U/L (ALT/SGPT) Alkaline Phosphatase 129 U/L Total Protein 6.7 GM/DL Albumin 3.1 GM/DL Administered Medications Medications (Trade) Dose Ordered Sig/Génesis Route PRN Reason Start Time Stop Time Status Last Admin Dose Admin Acetaminophen (Tylenol) 650 mg Q4H PRN PO TEMP> 100.5F 09/25/16 08:45 11/02/16 09:32 Heparin Sodium (Porcine) (Heparin Central Flush) 500 units UNSCH IVF 09/25/16 08:45 10/30/16 20:03 Sodium Chloride (NS Flush) 5 ml UNSCH PRN IVF SEE PROTOCOL 09/25/16 08:45 10/29/16 04:11 Heparin Sodium (Porcine) (Heparin Central Flush) 250 units UNSCH PRN IVF SEE PROTOCOL 09/25/16 08:45 11/02/16 17:43 Sertraline HCl (Zoloft) 50 mg DAILY PO 09/26/16 09:00 11/08/16 10:18 Alteplase, Recombinant 2 mg 2 mg UNSCH PRN IVF SEE LABEL COMMENTS 09/25/16 10:15 10/10/16 09:09 Ondansetron HCl/ Dextrose (Zofran Inj/D5W Inj) 54 ml @ 216 mls/hr Q8H PRN IV PUSH NAUSEA OR VOMITING 09/25/16 10:30 10/27/16 06:03 Docusate Sodium (Colace) 100 mg TID PO 09/25/16 18:00 Hold 10/19/16 13:32 Atenolol (Tenormin) 100 mg HS PO 10/14/16 21:00 11/08/16 20:30 Amlodipine Besylate (Norvasc) 5 mg DAILY PO 10/15/16 09:00 11/08/16 10:18 Diazepam (Valium) 5 mg Q12H PRN PO MILD ANXIETY 10/20/16 11:15 11/08/16 11:48 Diazepam (Valium) 10 mg HS PRN PO INSOMNIA 10/21/16 08:30 11/08/16 20:32 Loperamide HCl (Imodium) 2 mg UNSCH PRN PO DIARRHEA 10/22/16 09:00 10/28/16 09:56 Lisinopril (Prinivil) 10 mg DAILY PO 10/26/16 09:00 11/08/16 10:18 Metoclopramide HCl (Reglan) 5 mg Q8H PRN PO NAUSEA 10/27/16 07:15 10/27/16 07:25 Sodium Chloride (NS Flush) DAILY IVF 11/04/16 09:00 11/08/16 09:00 Heparin Sodium (Porcine) (Heparin Central Flush) DAILY IV FLUSH 11/04/16 09:00 11/05/16 14:23 Oxycodone HCl (Roxicodone) 5 mg Q4H PRN PO pain 11/04/16 12:00 11/08/16 20:31 Acetaminophen (Tylenol) 650 mg Q4H PRN PO SEE LABEL COMMENTS 11/04/16 15:45 11/08/16 10:19 Diphenhydramine HCl 25 mg 25 mg Q4H PRN PO SEE LABEL COMMENTS 11/04/16 15:45 11/08/16 10:18 Vancomycin HCl/ Sodium Chloride (Vancomycin Inj/ NS 500 ml Inj) 520 ml @ 250 mls/hr Q12H IV 11/08/16 18:00 11/09/16 06:05 Methylprednisolone Sodium Succinate 40 mg 40 mg Q8H IV PUSH 11/09/16 02:00 11/09/16 01:25 Piperacillin Sod/ Tazobactam Sod (Zosyn 3.375 Gm Premix) 50 ml @ 100 mls/hr Q6H IV 11/08/16 23:00 11/09/16 05:36 Objective Remarks GENERAL: Middle aged male, asleep in bed. Awakens easily. SKIN: Warm and dry. PICC line, right arm, site clean without bleeding. Rash noted on flanks, chest and back. HEAD: Normocephalic. EYES: No injection or drainage. NECK: Supple, trachea midline. CARDIOVASCULAR: Regular rate and rhythm RESPIRATORY: Breath sounds equal bilaterally. No accessory muscle use. GASTROINTESTINAL: Abdomen soft, non-tender, nondistended. EXTREMITIES: No cyanosis NEUROLOGICAL: No obvious focal deficit. Awake, alert, and oriented x3. Assessment/Plan Problem List: (1) AML (acute myeloid leukemia) Status: Acute Plan: 11/09: Change SS to medium dosing while on steroids. Rash improving. Will change to po prednisone. 11/08: Platelet transfusion today. Rash improving with steroids. 11/07 Still has rash. D/w Dr Corona. She change the a/b D/W BMT team at [place]. He is now back in remission. Monitor cbc 11/06 No TX today. on steroid for rash. d/w Dr Corona. Core BM bx = no residual leukemia. He is in remission. d/w pt. He is very happy. will call BMT team at [facility]. 11/05 No TX today. Has rash. ?meds. ID to follow. Start steroid for rash. Flow cyto on BM shows <1% Blasts. Await core bx report. Molecular test results are pending. d/w pt and . Both are very happy. d/w BMT coordinator at [facility]. 11/04: D40/. bone marrow biopsy and aspirate at bedside. continue abx. patient has red raised rash on flanks, none on face or chest. give 2 units pRBC, 1 unit platelet today. 11/03: D39/20. fever overnight. BC no growth. will consult IR to remove port. 11/02: D38/19. fever overnight. await blood cultures. give 1 unit pRBC. will inform ID of additional fever spike. 11/01: D37/18. spiked fever of 100.[address] Corona, ID advised to stop Zosyn, start Meropenem and continue Vanco. 10/31: D36/17. tolerating Vanco and Zosyn. rash improving. tired of being in hospital. 1 unit platelets and 1 unit pRBC today. plan for bone marrow biopsy on Monday 10/30 Prbc and plat today. No more fevers Tolerating vanco well so far.Clinically looks much better then yesterday. Extensive d/w pt and . 10/29 PRBC and plat todayD/W Dr corona regarding antibiotics. 10/28: D33/14: afebrile overnight. currently on Zosyn. persistent rash. has not been able to take exjade d/t nausea. will check ferritin 10/27: D32/13. febrile to 101.3 likely due to refusing Dapto and Micafungin last night. + rash on face and trunk. no transfusion today. 10/26: D31/12: No new fevers. Continue IV Abx per ID. Pt feeling overall better. Diarrhea is improved. Await count recovery. No transfusion today. 10/25: D30/11: 2 units irradiated platelets today. Continue current IV Abx per ID. Preliminary micro ++gram positive rods 10/24: D29/10. no transfusion. abx per ID. monitor blood pressure with increased Lisinopril. 10/23: D28/9. no transfusion. continue antibiotics. will increase Lisinopril to 20mg PO daily. 10/22: D27/8; 1 unit platelets. continue abx per ID 10/21: D26/7: 1 unit pRBC. CXR 10/20: D25/6. 1 unit platelets and pRBC. stop IVF. wean Adderall 10/19: D24/5 1 unit platelets. last day of chemotherapy 10/18: D2/. give 2 units pRBC today. monitor for fever 10/17: D2/. continue CLAG-M. no fever. 10/16: D21/ Pt tolerated chemo well yesterday. No fevers. Counts OK. No headache. Continue chemo. Monitor counts, fevers. 10/15 D2 start second cycle of CLAG-M today. D/W side effects and increase morbidity and mortality with the second cycle. He agreed . I will be OOT . Dr Newell will see him till thursday. 10/14: D19. patient started to receive Clarabine but the pump malfunction causing the chemo to spill on the floor. the chemo is being STAT ordered again and will arrive tomorrow morning. 10/13: bone marrow flow shows 70% blasts. d/w patient, repeating induction with CLAG-M chemotherapy or enrolling in a clinical trial. patient would like to try a second induction with CLAG-M. will give Neupogen today and start tomorrow. 10/12: Mildly tachycardic today in the 110's, but no fever. PRBC x 2 ordered today. PRODUCT INFO SPECIALIST replacing potassium per protocol for level of 3.2. Will monitor blood counts, heart rate. Plan for repeat BMB on this upcoming week. 10/11: Spiked a fever this morning to 101.8. Will order blood cultures x 2, check UA. No longer tachycardic. Continue IV Abx. Transfuse 1 unit platelets today. 10/10: afebrile today. tolerating blood and platelet transfusions. will keep in ICU another night as he remains tachycardic. 10/09: bone marrow biopsy today. 1 unit platelets, 2 units pRBC. spiked fever 103F. cefepime started. spoke with ID, who advised me to start Daptomycin and Micafungin. transferred to ICU after becoming tachy in 140s 10/08: day 13. 1 unit platelets. bone marrow biopsy tomorrow. 10/07: flow cytometry results returned showing NPM1 + and FLT3 +. I obtained the original pathology again from to double check and the original FLT3 was NEGATIVE. NPM1 mutation was detected 43.4%, KIT mutation not detected. 46XY 10/06: 2 units pRBC today. plan to do bone marrow biopsy AM. 10/05: 1 unit platelets today 10/04: D9. no fever. 10/03: D8. no transfusion. monitor for fever 10/02: Will give 1 unit pRBC's, platelets today. Plan for repeat BMB on 10/10. 10/01: Finished chemotherapy yesterday. Tolerated well. 1 unit irradiated PRBC's to be transfused today. Continue to closely monitor blood counts. 09/30: D5. last day of chemotherapy. will give 1 unit platelets. 09/29: D4. continue chemotherapy. no transfusion. 09/28: D3. 09/27: D2 09/26: Start on CLAG-M chemotherapy for relapsed AML. Received Neupogen yesterday. He spiked a fever this afternoon of 101.3. BC, UA, and CXR ordered. Will start pt on Cefepime. Await BC results. --On 09/18 it was noted that he had a white count at 11k and a platelet count of 76k. Blasts were at 38%. He was brought in to the clinic on 09/24 for a bone marrow biopsy. A CBC was done and showed a white count of 63.7, Hgb 12.2, and platelet count was 33K. The blasts were at 73%. Decision was made at that time to admit for salvage chemo. History: 11/04: AML Diagnosis made. 46XY, +NPM1 mutation detected, FLT3 negative-- indicates favorable prognosis. 11/05-11/28: Initial induction with MELL-C and idarubicin (7+3). STAT Leukapheresis due to leukostasis. On D2, repeat bone marrow showed residual leukemia. 12/06-12/27: Re-induction with FLANG chemotherapy. Repeat bone marrow biopsy negative for residual AML. Patient in Complete Remission 01/06-01/10: C1 consolidation chemotherapy with Mell-C. 02/17-02/21: C2 consolidation chemotherapy with MELL-C. 03/25-03/30: C3 consolidation chemotherapy with MELL-C 04/28-05/02: C4 consolidation chemo with MELL-C (2) Fever Status: Acute Plan: --BC + on 10/24 and 10/27; BC no growth on 11/01, 11/02 --port removed 11/03. culture pending --ID following --on Meropenem + Vanco + Fluconazole (3) Diabetes Status: Acute Plan: --on SSI Novolog Assessment 46 y/o male admitted for salvage chemotherapy for relapsed AML. Plan The exam, history, and the medical decision-making described in the above note were completed with the assistance of the mid-level provider. I reviewed and agree with the findings presented. I attest that I had a [id number] encounter with the patient on the same day, and personally performed and documented my assessment and findings in the medical record. Had headache this am. Rash is resolving. Not sleeping well and blood glucose is elevated. Will decrease steroid to prednisone 40mg daily since rash has improved. Restart metformin. No need for transfusion today. Problem Qualifiers (1) Fever: Qualified Code: R50.9 - Fever, unspecified fever cause (2) Diabetes: Qualified Code: E11.9 - Type 2 diabetes mellitus without complication, without long-term current use of insulin Valarie Lopez November 09, 2016 10:38 Lamine Zelaya MD November 09, 2016 11:20
[2016-11-09] MEDS ORDERED: GLUCAGON 1 MG/ML VIAL OTHER PRN (10:45)
[2016-11-09] MEDS ORDERED: DEXTROSE 50% IN WATER 50 ML VIAL(D50) IV PUSH PRN (10:45)
[2016-11-09 10:58] LABS: WBC DIFF SAMPLE 2
[2016-11-09 10:59] LABS: PLATELET ESTIMATE SMEAR LOW (NORMAL); PLATELET MORPHOLOGY NORMAL (NORMAL); SCAN/DIFF FINAL DIFF MANUAL
[2016-11-09 17:00] VITALS: BP 141/79; PULSE 80; RESP 20; TEMP 96.7; O2SAT 96
[2016-11-09] MEDS: metFORMIN HCL 850 MG TAB PO SCH (18:00)
[2016-11-09 20:00] VITALS: BP 137/90; PULSE 83; RESP 18; TEMP 96.8; O2SAT 100
[2016-11-09] MEDS: ATENOLOL 100 MG TAB PO SCH (20:52)
[2016-11-10] VITALS (8 sets, daily range): BP systolic 121–151; BP diastolic 69–97; PULSE 74–90; RESP 15–18; TEMP 96.4–98.3; O2SAT 95–100
[2016-11-10] MEDS: DIAZEPAM 10 MG TAB PO PRN (00:15)
[2016-11-10] MEDS: SODIUM CHLORIDE 0.9% FLUSH 10 ML FLUSH IVF PRN ×2 (05:04→23:04)
[2016-11-10] MEDS: PIPERACIL-TAZO 3.375 GM PREMIX 50 ML IV SCH ×4 (05:04→22:17)
[2016-11-10] MEDS ORDERED: PHARMACY ORDERED LAB ONE (05:45)
[2016-11-10] MEDS: VANCOMYCIN INJ 2,000 MG in SODIUM CHLORID 0.9% 500 ML INJ 500 ML IV SCH (06:08)
[2016-11-10] MEDS: INSULIN ASPART SUPPLEMENTAL SCALE SQ SCH ×4 (06:09→22:15)
[2016-11-10 06:38] LABS: VANCOMYCIN TROUGH 11.3 MCG/ML (5.0-10.0)
[2016-11-10 08:51] LABS: HEMATOCRIT 21.3 % (39.0-51.0); MEAN CELL VOLUME 74.8 FL (80.0-100.0); MEAN CORPUSCULAR HEMOGLOBIN 26.1 PG (27.0-34.0); MEAN CORPUSCULAR HGB CONC 34.8 % (32.0-36.0); PLATELET COUNT 21 TH/MM3 (150-450); RED BLOOD COUNT 2.85 MIL/MM3 (4.50-5.90); RED CELL DISTRIBUTION WIDTH 12.7 % (11.6-17.2)
[2016-11-10 08:52] LABS: HEMO FLAGS AUTO DIFF
[2016-11-10] MEDS ORDERED: predniSONE 20 MG TAB PO SCH (09:00)
[2016-11-10] MEDS: SODIUM CHLORIDE 0.9% FLUSH 10 ML FLUSH IVF SCH (09:00)
[2016-11-10 09:21] LABS: ALKALINE PHOSPHATASE 109 U/L (45-117); ALT (GPT) 23 U/L (12-78); ANION GAP 7 MEQ/L (5-15); AST (GOT) 10 U/L (15-37); BICARBONATE 33.7 MEQ/L (21.0-32.0); BLOOD UREA NITROGEN 14 MG/DL (7-18); CHLORIDE 95 MEQ/L (98-107); GLOMERULAR FILTRATION RATE 159 ML/MIN (>89); POTASSIUM 3.8 MEQ/L (3.5-5.1); SODIUM (NA) 136 MEQ/L (136-145); TOTAL BILIRUBIN ADULT 0.6 MG/DL (0.2-1.0)
[2016-11-10 09:43] LABS: PLATELET ESTIMATE SMEAR RARE (NORMAL); PLATELET MORPHOLOGY NORMAL (NORMAL); POLYS (SEG NEUTROPHILS) 20 % (16-70); SCAN/DIFF FINAL DIFF MANUAL; WBC DIFF SAMPLE 10
[2016-11-10] MEDS: SERTRALINE HCL 50 MG TAB PO SCH (10:12)
[2016-11-10] MEDS: LISINOPRIL 10 MG TAB PO SCH (10:12)
[2016-11-10] MEDS: metFORMIN HCL 850 MG TAB PO SCH ×2 (10:12→17:29)
[2016-11-10] MEDS: amLODIPine BESYLATE 5 MG TAB PO SCH (10:13)
[2016-11-10] MEDS: DIAZEPAM 5 MG TAB PO PRN (10:57)
[2016-11-10] MEDS: diphenhydrAMINE HCL 25 MG CAP PO PRN (10:57)
[2016-11-10] MEDS: ACETAMINOPHEN 325 MG TAB PO PRN (10:57)
--- NOTE | 2016-11-10 17:17 | PD.ONC.PN ---
Subjective Subjective Remarks no more rash. feels tired and bored. Objective Data Date Time Temp Pulse Resp B/P Pulse Ox O2 Delivery O2 Flow Rate FiO2 11/10/16 14:25 97.9 77 16 132/86 97 11/10/16 12:15 97.9 86 16 121/69 95 11/10/16 11:50 98.0 86 16 141/78 95 11/10/16 09:30 97.9 75 15 142/86 98 11/10/16 05:07 96.4 74 16 129/85 100 11/10/16 00:00 97.8 90 17 145/87 98 11/09/16 20:00 96.8 83 18 137/90 100 Result Diagram: 11/10/16 0550 11/10/16 0550 Laboratory Results Laboratory Tests Test 11/10/16 05:50 White Blood Count 0.0 TH/MM3 Red Blood Count 2.85 MIL/MM3 Hemoglobin 7.4 GM/DL Hematocrit 21.3 % Mean Corpuscular Volume 74.8 FL Mean Corpuscular Hemoglobin 26.1 PG Mean Corpuscular Hemoglobin 34.8 % Concent Red Cell Distribution Width 12.7 % Platelet Count 21 TH/MM3 Mean Platelet Volume 6.8 FL Neutrophils (%) (Auto) % Lymphocytes (%) (Auto) % Monocytes (%) (Auto) % Eosinophils (%) (Auto) % Basophils (%) (Auto) % Neutrophils # (Auto) TH/MM3 Lymphocytes # (Auto) TH/MM3 Monocytes # (Auto) TH/MM3 Eosinophils # (Auto) TH/MM3 Basophils # (Auto) TH/MM3 CBC Comment AUTO DIFF Differential Total Cells 10 Counted Neutrophils % (Manual) 20 % Lymphocytes % 60 % Monocytes % 20 % Neutrophils # (Manual) 0.0 TH/MM3 Differential Comment FINAL DIFF MANUAL Platelet Estimate RARE Platelet Morphology Comment NORMAL Sodium Level 136 MEQ/L Potassium Level 3.8 MEQ/L Chloride Level 95 MEQ/L Carbon Dioxide Level 33.7 MEQ/L Anion Gap 7 MEQ/L Blood Urea Nitrogen 14 MG/DL Creatinine 0.55 MG/DL Estimat Glomerular Filtration 159 ML/MIN Rate Random Glucose 274 MG/DL Calcium Level 8.8 MG/DL Total Bilirubin 0.6 MG/DL Aspartate Amino Transf 10 U/L (AST/SGOT) Alanine Aminotransferase 23 U/L (ALT/SGPT) Alkaline Phosphatase 109 U/L Total Protein 6.2 GM/DL Albumin 3.0 GM/DL Vancomycin Level Trough 11.3 MCG/ML Blood Type O POSITIVE Antibody Screen NEGATIVE Crossmatch Irradiated/Leukocyte-Reduced RBC Blood Bank Comment Administered Medications Medications (Trade) Dose Ordered Sig/Génesis Route PRN Reason Start Time Stop Time Status Last Admin Dose Admin Acetaminophen (Tylenol) 650 mg Q4H PRN PO TEMP> 100.5F 09/25/16 08:45 11/02/16 09:32 Heparin Sodium (Porcine) (Heparin Central Flush) 500 units UNSCH IVF 09/25/16 08:45 10/30/16 20:03 Sodium Chloride (NS Flush) 5 ml UNSCH PRN IVF SEE PROTOCOL 09/25/16 08:45 11/10/16 05:04 Heparin Sodium (Porcine) (Heparin Central Flush) 250 units UNSCH PRN IVF SEE PROTOCOL 09/25/16 08:45 11/02/16 17:43 Sertraline HCl (Zoloft) 50 mg DAILY PO 09/26/16 09:00 11/10/16 10:12 Alteplase, Recombinant 2 mg 2 mg UNSCH PRN IVF SEE LABEL COMMENTS 09/25/16 10:15 10/10/16 09:09 Ondansetron HCl/ Dextrose (Zofran Inj/D5W Inj) 54 ml @ 216 mls/hr Q8H PRN IV PUSH NAUSEA OR VOMITING 09/25/16 10:30 10/27/16 06:03 Docusate Sodium (Colace) 100 mg TID PO 09/25/16 18:00 Hold 10/19/16 13:32 Atenolol (Tenormin) 100 mg HS PO 10/14/16 21:00 11/09/16 20:52 Amlodipine Besylate (Norvasc) 5 mg DAILY PO 10/15/16 09:00 11/10/16 10:13 Diazepam (Valium) 5 mg Q12H PRN PO MILD ANXIETY 10/20/16 11:15 11/10/16 10:57 Diazepam (Valium) 10 mg HS PRN PO INSOMNIA 10/21/16 08:30 11/10/16 00:15 Loperamide HCl (Imodium) 2 mg UNSCH PRN PO DIARRHEA 10/22/16 09:00 10/28/16 09:56 Lisinopril (Prinivil) 10 mg DAILY PO 10/26/16 09:00 11/10/16 10:12 Metoclopramide HCl (Reglan) 5 mg Q8H PRN PO NAUSEA 10/27/16 07:15 10/27/16 07:25 Sodium Chloride (NS Flush) DAILY IVF 11/04/16 09:00 11/09/16 09:00 Heparin Sodium (Porcine) (Heparin Central Flush) DAILY IV FLUSH 11/04/16 09:00 11/05/16 14:23 Oxycodone HCl (Roxicodone) 5 mg Q4H PRN PO pain 11/04/16 12:00 11/09/16 20:53 Acetaminophen (Tylenol) 650 mg Q4H PRN PO SEE LABEL COMMENTS 11/04/16 15:45 11/10/16 10:57 Diphenhydramine HCl 25 mg 25 mg Q4H PRN PO SEE LABEL COMMENTS 11/04/16 15:45 11/10/16 10:57 Piperacillin Sod/ Tazobactam Sod (Zosyn 3.375 Gm Premix) 50 ml @ 100 mls/hr Q6H IV 11/08/16 23:00 11/10/16 16:44 Metformin HCl (Glucophage) 850 mg BIDPC PO 11/09/16 18:00 11/10/16 10:12 Prednisone (Deltasone) 40 mg DAILY PO 11/10/16 09:00 11/10/16 10:13 Objective Remarks GENERAL: Well-nourished, well-developed patient. SKIN: Warm and dry. HEAD: Normocephalic. EYES: No scleral icterus. No injection or drainage. NECK: Supple, trachea midline. No JVD or lymphadenopathy. LYMPHATIC: No adenopathy. CARDIOVASCULAR: Regular rate and rhythm without murmurs. RESPIRATORY: Breath sounds equal bilaterally. No accessory muscle use. GASTROINTESTINAL: Abdomen soft, non-tender, nondistended. EXTREMITIES: No cyanosis, or edema. NEUROLOGICAL: No obvious focal deficit. Awake, alert, and oriented x3. PSYCHIATRIC: Appropriate mood and affect; insight and judgment normal. Assessment/Plan Problem List: (1) AML (acute myeloid leukemia) Status: Acute Plan: 11/10/16 PRBC today. WBC still low. On prednisone for rash. Rash has resolved. No more fevers. 11/09: Change SS to medium dosing while on steroids. Rash improving. Will change to po prednisone. 11/08: Platelet transfusion today. Rash improving with steroids. 11/07 Still has rash. D/w Dr Gaalrza. She change the a/b D/W BMT team at [facility]. He is now back in remission. Monitor cbc 11/06 No TX today. on steroid for rash. d/w Dr Galarza. Core BM bx = no residual leukemia. He is in remission. d/w pt. He is very happy. will call BMT team at [facility]. 11/05 No TX today. Has rash. ?meds. ID to follow. Start steroid for rash. Flow cyto on BM shows <1% Blasts. Await core bx report. Molecular test results are pending. d/w pt and . Both are very happy. d/w BMT coordinator at [facility]. 11/04: D40/21. bone marrow biopsy and aspirate at bedside. continue abx. patient has red raised rash on flanks, none on face or chest. give 2 units pRBC, 1 unit platelet today. 11/03: D39/20. fever overnight. BC no growth. will consult IR to remove port. 11/02: D38/19. fever overnight. await blood cultures. give 1 unit pRBC. will inform ID of additional fever spike. 11/01: D37/18. spiked fever of 100.[address] Galarza, ID advised to stop Zosyn, start Meropenem and continue Vanco. 10/31: D36/17. tolerating Vanco and Zosyn. rash improving. tired of being in hospital. 1 unit platelets and 1 unit pRBC today. plan for bone marrow biopsy on Monday 10/30 Prbc and plat today. No more fevers Tolerating vanco well so far.Clinically looks much better then yesterday. Extensive d/w pt and . 10/29 PRBC and plat todayD/W Dr galarza regarding antibiotics. 10/28: D33/14: afebrile overnight. currently on Zosyn. persistent rash. has not been able to take exjade d/t nausea. will check ferritin 10/27: D32/13. febrile to 101.3 likely due to refusing Dapto and Micafungin last night. + rash on face and trunk. no transfusion today. 10/26: D31/12: No new fevers. Continue IV Abx per ID. Pt feeling overall better. Diarrhea is improved. Await count recovery. No transfusion today. 10/25: D30/11: 2 units irradiated platelets today. Continue current IV Abx per ID. Preliminary micro ++gram positive rods 10/24: D29/10. no transfusion. abx per ID. monitor blood pressure with increased Lisinopril. 10/23: D28/9. no transfusion. continue antibiotics. will increase Lisinopril to 20mg PO daily. 10/22: D27/8; 1 unit platelets. continue abx per ID 10/21: D26/7: 1 unit pRBC. CXR 10/20: D25/6. 1 unit platelets and pRBC. stop IVF. wean Adderall 10/19: D24/5 1 unit platelets. last day of chemotherapy 10/18: D23/4. give 2 units pRBC today. monitor for fever 10/17: D22/3. continue CLAG-M. no fever. 10/16: D21/2 Pt tolerated chemo well yesterday. No fevers. Counts OK. No headache. Continue chemo. Monitor counts, fevers. 10/15 D20 start second cycle of CLAG-M today. D/W side effects and increase morbidity and mortality with the second cycle. He agreed . I will be OOT . Dr Newell will see him till thursday. 10/14: D19. patient started to receive Clarabine but the pump malfunction causing the chemo to spill on the floor. the chemo is being STAT ordered again and will arrive tomorrow morning. 10/13: bone marrow flow shows 70% blasts. d/w patient, repeating induction with CLAG-M chemotherapy or enrolling in a clinical trial. patient would like to try a second induction with CLAG-M. will give Neupogen today and start tomorrow. 10/12: Mildly tachycardic today in the 110's, but no fever. PRBC x 2 ordered today. DENTAL INTERN replacing potassium per protocol for level of 3.2. Will monitor blood counts, heart rate. Plan for repeat BMB on this upcoming week. 10/11: Spiked a fever this morning to 101.8. Will order blood cultures x 2, check UA. No longer tachycardic. Continue IV Abx. Transfuse 1 unit platelets today. 10/10: afebrile today. tolerating blood and platelet transfusions. will keep in ICU another night as he remains tachycardic. 10/09: bone marrow biopsy today. 1 unit platelets, 2 units pRBC. spiked fever 103F. cefepime started. spoke with ID, who advised me to start Daptomycin and Micafungin. transferred to ICU after becoming tachy in 140s 10/08: day 13. 1 unit platelets. bone marrow biopsy tomorrow. 10/07: flow cytometry results returned showing NPM1 + and FLT3 +. I obtained the original pathology again from to double check and the original FLT3 was NEGATIVE. NPM1 mutation was detected 43.4%, KIT mutation not detected. 46XY 10/06: 2 units pRBC today. plan to do bone marrow biopsy AM. 10/05: 1 unit platelets today 10/04: D9. no fever. 10/03: D8. no transfusion. monitor for fever 10/02: Will give 1 unit pRBC's, platelets today. Plan for repeat BMB on 10/10. 10/01: Finished chemotherapy yesterday. Tolerated well. 1 unit irradiated PRBC's to be transfused today. Continue to closely monitor blood counts. 09/30: D5. last day of chemotherapy. will give 1 unit platelets. 09/29: D4. continue chemotherapy. no transfusion. 09/28: D3. 09/27: D2 09/26: Start on CLAG-M chemotherapy for relapsed AML. Received Neupogen yesterday. He spiked a fever this afternoon of 101.3. BC, UA, and CXR ordered. Will start pt on Cefepime. Await BC results. --On 09/18 it was noted that he had a white count at 11k and a platelet count of 76k. Blasts were at 38%. He was brought in to the clinic on 09/24 for a bone marrow biopsy. A CBC was done and showed a white count of 63.7, Hgb 12.2, and platelet count was 33K. The blasts were at 73%. Decision was made at that time to admit for salvage chemo. History: 11/04: AML Diagnosis made. 46XY, +NPM1 mutation detected, FLT3 negative-- indicates favorable prognosis. 11/05-11/28: Initial induction with MELL-C and idarubicin (7+3). STAT Leukapheresis due to leukostasis. On D25, repeat bone marrow showed residual leukemia. 12/06-12/27: Re-induction with FLANG chemotherapy. Repeat bone marrow biopsy negative for residual AML. Patient in Complete Remission 01/06-01/10: C1 consolidation chemotherapy with Mell-C. 02/17-02/21: C2 consolidation chemotherapy with MELL-C. 03/25-03/30: C3 consolidation chemotherapy with MELL-C 04/28-05/02: C4 consolidation chemo with MELL-C (2) Fever Status: Acute Plan: --BC + on 10/24 and 10/27; BC no growth on 11/01, 11/02 --port removed 11/03. culture pending --ID following --on Meropenem + Vanco + Fluconazole (3) Diabetes Status: Acute Plan: --on SSI Novolog Assessment 46 y/o male admitted for salvage chemotherapy for relapsed AML. Plan The exam, history, and the medical decision-making described in the above note were completed with the assistance of the mid-level provider. I reviewed and agree with the findings presented. I attest that I had a [id number] encounter with the patient on the same day, and personally performed and documented my assessment and findings in the medical record. Had headache this am. Rash is resolving. Not sleeping well and blood glucose is elevated. Will decrease steroid to prednisone 40mg daily since rash has improved. Restart metformin. No need for transfusion today. Problem Qualifiers (1) Fever: Qualified Code: R50.9 - Fever, unspecified fever cause (2) Diabetes: Qualified Code: E11.9 - Type 2 diabetes mellitus without complication, without long-term current use of insulin Alexandra Olea MD November 10, 2016 17:17
[2016-11-10] MEDS: VANCOMYCIN INJ 2,250 MG in SODIUM CHLORID 0.9% 500 ML INJ 500 ML IV SCH (17:29)
--- NOTE | 2016-11-10 17:51 | HHI.IDPN ---
Subjective Subjective Remarks afebrile markedly improved rash no new complaints Antibiotics zosyn vanco Allergies: Coded Allergies: Vancomycin (Verified Adverse Reaction, Severe, Diarrhea, 10/29/16) Per pt and his record review he uneventfully took IV vancomycin in December 2015. In october 16-2016 he developped severe diarrhea during vancomycin use, no rash per his account. Objective . Vital Signs Date Time Temp Pulse Resp B/P Pulse Ox O2 Delivery O2 Flow Rate FiO2 11/10/16 16:00 97.6 85 18 147/85 96 11/10/16 14:25 97.9 77 16 132/86 97 11/10/16 12:15 97.9 86 16 121/69 95 11/10/16 11:50 98.0 86 16 141/78 95 11/10/16 09:30 97.9 75 15 142/86 98 11/10/16 05:07 96.4 74 16 129/85 100 11/10/16 00:00 97.8 90 17 145/87 98 11/09/16 20:00 96.8 83 18 137/90 100 11/09/16 11/09/16 11/10/16 14:59 22:59 06:59 Intake Total 2192 ml Balance 2192 ml Intake Oral 1200 ml IV Total 992 ml # Voids 10 3 . Laboratory Tests Test 11/09/16 11/10/16 05:36 05:50 White Blood Count 0.0 TH/MM3 0.0 TH/MM3 Red Blood Count 3.05 MIL/MM3 2.85 MIL/MM3 Hemoglobin 8.1 GM/DL 7.4 GM/DL Hematocrit 22.9 % 21.3 % Mean Corpuscular Volume 75.0 FL 74.8 FL Mean Corpuscular Hemoglobin 26.7 PG 26.1 PG Mean Corpuscular Hemoglobin 35.5 % 34.8 % Concent Red Cell Distribution Width 12.6 % 12.7 % Platelet Count 34 TH/MM3 21 TH/MM3 Mean Platelet Volume 7.1 FL 6.8 FL Neutrophils (%) (Auto) % % Lymphocytes (%) (Auto) % % Monocytes (%) (Auto) % % Eosinophils (%) (Auto) % % Basophils (%) (Auto) % % Neutrophils # (Auto) TH/MM3 TH/MM3 Lymphocytes # (Auto) TH/MM3 TH/MM3 Monocytes # (Auto) TH/MM3 TH/MM3 Eosinophils # (Auto) TH/MM3 TH/MM3 Basophils # (Auto) TH/MM3 TH/MM3 CBC Comment AUTO DIFF AUTO DIFF Differential Total Cells 2 10 Counted Lymphocytes % 100 % 60 % Neutrophils # (Manual) 0.0 TH/MM3 0.0 TH/MM3 Differential Comment FINAL DIFF FINAL DIFF MANUAL MANUAL Platelet Estimate LOW RARE Platelet Morphology Comment NORMAL NORMAL Neutrophils % (Manual) 20 % Monocytes % 20 % Laboratory Tests Test 11/09/16 11/10/16 05:36 05:50 Sodium Level 134 MEQ/L 136 MEQ/L Potassium Level 4.5 MEQ/L 3.8 MEQ/L Chloride Level 93 MEQ/L 95 MEQ/L Carbon Dioxide Level 34.1 MEQ/L 33.7 MEQ/L Anion Gap 7 MEQ/L 7 MEQ/L Blood Urea Nitrogen 16 MG/DL 14 MG/DL Creatinine 0.59 MG/DL 0.55 MG/DL Estimat Glomerular Filtration 147 ML/MIN 159 ML/MIN Rate Random Glucose 402 MG/DL 274 MG/DL Calcium Level 9.1 MG/DL 8.8 MG/DL Total Bilirubin 0.5 MG/DL 0.6 MG/DL Aspartate Amino Transf 11 U/L 10 U/L (AST/SGOT) Alanine Aminotransferase 23 U/L 23 U/L (ALT/SGPT) Alkaline Phosphatase 129 U/L 109 U/L Total Protein 6.7 GM/DL 6.2 GM/DL Albumin 3.1 GM/DL 3.0 GM/DL Imaging Last Impressions PICC Line Insertion 11/03/16 1135 Signed Impressions: Service Date/Time: Thursday, November 03, 2016 15:49 - CONCLUSION: 1. Uncomplicated central venous Power PICC line placement. 2. The PICC line can be used immediately. Isai Healy Jr., MD Port Line Revision 11/03/16 0000 Signed Impressions: Service Date/Time: Thursday, November 03, 2016 00:00 - CONCLUSION: Uncomplicated port removal as above. The tip of the catheter was sent for culture. Isai Healy Jr., MD Chest X-Ray 11/03/16 0000 Signed Impressions: Service Date/Time: Thursday, November 03, 2016 18:12 - CONCLUSION: 1. No pneumonia or other acute cardiopulmonary disease. 2. Right IJ [id number] catheter out in the interim. There is now a right arm PICC with tip in the superior vena cava. Eric Ontiveros MD Head CT 10/14/16 0000 Signed Impressions: Service Date/Time: Friday, October 14, 2016 09:52 - CONCLUSION: 1. No acute intracranial abnormality is identified. 2. Minimal mucoperiosteal thickening in the left maxillary and ethmoid sinus. Eric Collazo MD Physical Exam CONSTITUTIONAL/GENERAL: This is an adequately nourished patient, in no apparent distress. looks better TUBES/LINES/DRAINS: PORT in R chest - site OK, not tender to palpation SKIN: No jaundice, Markedly improved rash EYES: Pupils equal and round and reactive. Extraocular motions intact. No scleral icterus. No injection or drainage. Fundi not examined. CARDIOVASCULAR: Regular rate and rhythm without murmurs, gallops, or rubs. RESPIRATORY/CHEST: Symmetric, unlabored respirations. Clear to auscultation. Breath sounds equal bilaterally. No wheezes, rales, or rhonchi. GASTROINTESTINAL: Abdomen soft, non-tender, not distended. No hepato- splenomegaly, or palpable masses. No guarding. Bowel sounds present. MUSCULOSKELETAL: Extremities without clubbing, cyanosis, or edema. NEUROLOGICAL: awake and alert . Normal speech. Follows commands. Moves all extremities. PSYCHIATRIC: No obvious anxiety/depression. 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
[2016-11-10 21:01] LABS: MEAN CORPUSCULAR HGB CONC 36.1 % (32.0-36.0)
[2016-11-10] MEDS: ATENOLOL 100 MG TAB PO SCH (22:15)
[2016-11-11] VITALS (7 sets, daily range): BP systolic 141–159; BP diastolic 84–95; PULSE 81–94; RESP 16–18; TEMP 97.4–98.8; O2SAT 95–100
[2016-11-11] MEDS: DIAZEPAM 10 MG TAB PO PRN (00:55)
[2016-11-11] MEDS: SODIUM CHLORIDE 0.9% FLUSH 10 ML FLUSH IVF PRN (05:12)
[2016-11-11] MEDS: PIPERACIL-TAZO 3.375 GM PREMIX 50 ML IV SCH ×4 (05:19→22:31)
[2016-11-11] MEDS: INSULIN ASPART SUPPLEMENTAL SCALE SQ SCH ×4 (05:24→21:45)
[2016-11-11] MEDS: VANCOMYCIN INJ 2,250 MG in SODIUM CHLORID 0.9% 500 ML INJ 500 ML IV SCH ×2 (06:10→18:06)
[2016-11-11 07:06] LABS: MEAN CELL VOLUME 74.8 FL (80.0-100.0); RED BLOOD COUNT 3.21 MIL/MM3 (4.50-5.90); RED CELL DISTRIBUTION WIDTH 13.1 % (11.6-17.2)
[2016-11-11 07:11] LABS: HEMO FLAGS AUTO DIFF
[2016-11-11 07:12] LABS: PLATELET COUNT 13 TH/MM3 (150-450)
[2016-11-11 07:42] LABS: BICARBONATE 35.1 MEQ/L (21.0-32.0); POTASSIUM 3.6 MEQ/L (3.5-5.1)
[2016-11-11 09:10] LABS: ATYPICAL LYMPHOCYTES 40 % (0-0); PLATELET ESTIMATE SMEAR RARE (NORMAL); PLATELET MORPHOLOGY NORMAL (NORMAL); SCAN/DIFF FINAL DIFF MANUAL; WBC DIFF SAMPLE 5
--- NOTE | 2016-11-11 09:11 | PD.ONC.PN ---
Subjective Subjective Remarks Afebrile overnight. Pt asleep in bed on approach. Awakens easily. He is concerned that his leukemia is coming back while we await his count recovery. He is asking why we can't transfer him to [facility]. Rash is much improved. Objective Data Date Time Temp Pulse Resp B/P Pulse Ox O2 Delivery O2 Flow Rate FiO2 11/11/16 05:15 97.9 81 16 141/89 96 11/11/16 00:00 97.8 85 16 159/95 97 11/10/16 20:00 98.3 81 18 151/97 97 11/10/16 16:00 97.6 85 18 147/85 96 11/10/16 14:25 97.9 77 16 132/86 97 11/10/16 12:15 97.9 86 16 121/69 95 11/10/16 11:50 98.0 86 16 141/78 95 11/10/16 09:30 97.9 75 15 142/86 98 11/11/16 11/11/16 11/11/16 07:00 15:00 23:00 Intake Total 820 ml Balance 820 ml Result Diagram: 11/11/1620 11/11/16 0520 Laboratory Results Laboratory Tests Test 11/10/16 11/11/16 11/11/16 23:00 05:20 07:41 Random Glucose 434 MG/DL 246 MG/DL White Blood Count 0.0 TH/MM3 Red Blood Count 3.21 MIL/MM3 Hemoglobin 8.7 GM/DL Hematocrit 24.0 % Mean Corpuscular Volume 74.8 FL Mean Corpuscular Hemoglobin 27.0 PG Mean Corpuscular Hemoglobin 36.1 % Concent Red Cell Distribution Width 13.1 % Platelet Count 13 TH/MM3 Mean Platelet Volume 7.2 FL Neutrophils (%) (Auto) % Lymphocytes (%) (Auto) % Monocytes (%) (Auto) % Eosinophils (%) (Auto) % Basophils (%) (Auto) % Neutrophils # (Auto) TH/MM3 Lymphocytes # (Auto) TH/MM3 Monocytes # (Auto) TH/MM3 Eosinophils # (Auto) TH/MM3 Basophils # (Auto) TH/MM3 CBC Comment AUTO DIFF Sodium Level 136 MEQ/L Potassium Level 3.6 MEQ/L Chloride Level 95 MEQ/L Carbon Dioxide Level 35.1 MEQ/L Anion Gap 6 MEQ/L Blood Urea Nitrogen 11 MG/DL Creatinine 0.45 MG/DL Estimat Glomerular Filtration 200 ML/MIN Rate Calcium Level 9.4 MG/DL Blood Bank Comment Administered Medications Medications (Trade) Dose Ordered Sig/Génesis Route PRN Reason Start Time Stop Time Status Last Admin Dose Admin Acetaminophen (Tylenol) 650 mg Q4H PRN PO TEMP> 100.5F 09/25/16 08:45 11/02/16 09:32 Heparin Sodium (Porcine) (Heparin Central Flush) 500 units UNSCH IVF 09/25/16 08:45 10/30/16 20:03 Sodium Chloride (NS Flush) 5 ml UNSCH PRN IVF SEE PROTOCOL 09/25/16 08:45 11/11/16 05:12 Heparin Sodium (Porcine) (Heparin Central Flush) 250 units UNSCH PRN IVF SEE PROTOCOL 09/25/16 08:45 11/02/16 17:43 Sertraline HCl (Zoloft) 50 mg DAILY PO 09/26/16 09:00 11/10/16 10:12 Alteplase, Recombinant 2 mg 2 mg UNSCH PRN IVF SEE LABEL COMMENTS 09/25/16 10:15 10/10/16 09:09 Ondansetron HCl/ Dextrose (Zofran Inj/D5W Inj) 54 ml @ 216 mls/hr Q8H PRN IV PUSH NAUSEA OR VOMITING 09/25/16 10:30 10/27/16 06:03 Docusate Sodium (Colace) 100 mg TID PO 09/25/16 18:00 Hold 10/19/16 13:32 Atenolol (Tenormin) 100 mg HS PO 10/14/16 21:00 11/10/16 22:15 Amlodipine Besylate (Norvasc) 5 mg DAILY PO 10/15/16 09:00 11/10/16 10:13 Diazepam (Valium) 5 mg Q12H PRN PO MILD ANXIETY 10/20/16 11:15 11/10/16 10:57 Diazepam (Valium) 10 mg HS PRN PO INSOMNIA 10/21/16 08:30 11/11/16 00:55 Loperamide HCl (Imodium) 2 mg UNSCH PRN PO DIARRHEA 10/22/16 09:00 10/28/16 09:56 Lisinopril (Prinivil) 10 mg DAILY PO 10/26/16 09:00 11/10/16 10:12 Metoclopramide HCl (Reglan) 5 mg Q8H PRN PO NAUSEA 10/27/16 07:15 10/27/16 07:25 Sodium Chloride (NS Flush) DAILY IVF 11/04/16 09:00 11/09/16 09:00 Heparin Sodium (Porcine) (Heparin Central Flush) DAILY IV FLUSH 11/04/16 09:00 11/05/16 14:23 Sodium Chloride (NS Flush) UNSCH PRN IVF SEE PROTOCOL 11/03/16 17:15 11/11/16 05:12 Oxycodone HCl (Roxicodone) 5 mg Q4H PRN PO pain 11/04/16 12:00 11/10/16 22:16 Acetaminophen (Tylenol) 650 mg Q4H PRN PO SEE LABEL COMMENTS 11/04/16 15:45 11/10/16 10:57 Diphenhydramine HCl 25 mg 25 mg Q4H PRN PO SEE LABEL COMMENTS 11/04/16 15:45 11/10/16 10:57 Piperacillin Sod/ Tazobactam Sod (Zosyn 3.375 Gm Premix) 50 ml @ 100 mls/hr Q6H IV 11/08/16 23:00 11/11/16 05:19 Metformin HCl (Glucophage) 850 mg BIDPC PO 11/09/16 18:00 11/10/16 17:29 Prednisone 40 mg 40 mg DAILY PO 11/10/16 09:00 11/10/16 10:13 Vancomycin HCl/ Sodium Chloride (Vancomycin Inj/ NS 500 ml Inj) 522.5 ml @ 250 mls/hr Q12H IV 11/10/16 18:00 11/11/16 06:10 Objective Remarks GENERAL: Middle aged male, asleep in bed. Awakens easily. SKIN: Warm and dry. PICC line, right arm, site clean without bleeding. Rash on his back is much improved. HEAD: Normocephalic. EYES: No injection or drainage. NECK: Supple, trachea midline. CARDIOVASCULAR: Regular rate and rhythm RESPIRATORY: Breath sounds equal bilaterally. No accessory muscle use. GASTROINTESTINAL: Abdomen soft, non-tender, nondistended. EXTREMITIES: No cyanosis. No edema. NEUROLOGICAL: No obvious focal deficit. Awake, alert, and oriented x3. Assessment/Plan Problem List: (1) AML (acute myeloid leukemia) Status: Acute Plan: 11/11/16: Remains afebrile. Will transfuse 1 unit platelets today. Prednisone cut to 20mg po daily. Encouraged pt to find activities to do to pass the time. 11/10/16 PRBC today. WBC still low. On prednisone for rash. Rash has resolved. No more fevers. 11/09: Change SS to medium dosing while on steroids. Rash improving. Will change to po prednisone. 11/08: Platelet transfusion today. Rash improving with steroids. 11/07 Still has rash. D/w Dr Corona. She change the a/b D/W BMT team at [facility]. He is now back in remission. Monitor cbc 11/06 No TX today. on steroid for rash. d/w Dr Corona. Core BM bx = no residual leukemia. He is in remission. d/w pt. He is very happy. will call BMT team at [facility]. 11/05 No TX today. Has rash. ?meds. ID to follow. Start steroid for rash. Flow cyto on BM shows <1% Blasts. Await core bx report. Molecular test results are pending. d/w pt and . Both are very happy. d/w BMT coordinator at [facility]. 11/04: D40/21. bone marrow biopsy and aspirate at bedside. continue abx. patient has red raised rash on flanks, none on face or chest. give 2 units pRBC, 1 unit platelet today. 11/03: D39/20. fever overnight. BC no growth. will consult IR to remove port. 11/02: D38/19. fever overnight. await blood cultures. give 1 unit pRBC. will inform ID of additional fever spike. 11/01: D37/18. spiked fever of 100.[address] Corona, ID advised to stop Zosyn, start Meropenem and continue Vanco. 10/31: D36/17. tolerating Vanco and Zosyn. rash improving. tired of being in hospital. 1 unit platelets and 1 unit pRBC today. plan for bone marrow biopsy on Monday 10/30 Prbc and plat today. No more fevers Tolerating vanco well so far.Clinically looks much better then yesterday. Extensive d/w pt and . 10/29 PRBC and plat todayD/W Dr corona regarding antibiotics. 10/28: D33/14: afebrile overnight. currently on Zosyn. persistent rash. has not been able to take exjade d/t nausea. will check ferritin 10/27: D32/13. febrile to 101.3 likely due to refusing Dapto and Micafungin last night. + rash on face and trunk. no transfusion today. 10/26: D3112: No new fevers. Continue IV Abx per ID. Pt feeling overall better. Diarrhea is improved. Await count recovery. No transfusion today. 10/25: D3011: 2 units irradiated platelets today. Continue current IV Abx per ID. Preliminary micro ++gram positive rods 10/24: D29/10. no transfusion. abx per ID. monitor blood pressure with increased Lisinopril. 10/23: D28/9. no transfusion. continue antibiotics. will increase Lisinopril to 20mg PO daily. 10/22: D27/8; 1 unit platelets. continue abx per ID 10/21: D26/7: 1 unit pRBC. CXR 10/20: D25/6. 1 unit platelets and pRBC. stop IVF. wean Adderall 10/19: D24/5 1 unit platelets. last day of chemotherapy 10/18: D23/4. give 2 units pRBC today. monitor for fever 10/17: D22/3. continue CLAG-M. no fever. 10/16: D21/2 Pt tolerated chemo well yesterday. No fevers. Counts OK. No headache. Continue chemo. Monitor counts, fevers. 10/15 D20/ start second cycle of CLAG-M today. D/W side effects and increase morbidity and mortality with the second cycle. He agreed . I will be OOT . Dr Newell will see him till thursday. 10/14: D19. patient started to receive Clarabine but the pump malfunction causing the chemo to spill on the floor. the chemo is being STAT ordered again and will arrive tomorrow morning. 10/13: bone marrow flow shows 70% blasts. d/w patient, repeating induction with CLAG-M chemotherapy or enrolling in a clinical trial. patient would like to try a second induction with CLAG-M. will give Neupogen today and start tomorrow. 10/12: Mildly tachycardic today in the 110's, but no fever. PRBC x 2 ordered today. [employer] replacing potassium per protocol for level of 3.2. Will monitor blood counts, heart rate. Plan for repeat BMB on this upcoming week. 10/11: Spiked a fever this morning to 101.8. Will order blood cultures x 2, check UA. No longer tachycardic. Continue IV Abx. Transfuse 1 unit platelets today. 10/10: afebrile today. tolerating blood and platelet transfusions. will keep in ICU another night as he remains tachycardic. 10/09: bone marrow biopsy today. 1 unit platelets, 2 units pRBC. spiked fever 103F. cefepime started. spoke with ID, who advised me to start Daptomycin and Micafungin. transferred to ICU after becoming tachy in 140s 10/08: day 13. 1 unit platelets. bone marrow biopsy tomorrow. 10/07: flow cytometry results returned showing NPM1 + and FLT3 +. I obtained the original pathology again from to double check and the original FLT3 was NEGATIVE. NPM1 mutation was detected 43.4%, KIT mutation not detected. 46XY 10/06: 2 units pRBC today. plan to do bone marrow biopsy AM. 10/05: 1 unit platelets today 10/04: D9. no fever. 10/03: D8. no transfusion. monitor for fever 10/02: Will give 1 unit pRBC's, platelets today. Plan for repeat BMB on 10/10. 10/01: Finished chemotherapy yesterday. Tolerated well. 1 unit irradiated PRBC's to be transfused today. Continue to closely monitor blood counts. 09/30: D5. last day of chemotherapy. will give 1 unit platelets. 09/29: D4. continue chemotherapy. no transfusion. 09/28: D3. 09/27: D2 09/26: Start on CLAG-M chemotherapy for relapsed AML. Received Neupogen yesterday. He spiked a fever this afternoon of 101.3. BC, UA, and CXR ordered. Will start pt on Cefepime. Await BC results. --On 09/18 it was noted that he had a white count at 11k and a platelet count of 76k. Blasts were at 38%. He was brought in to the clinic on 09/24 for a bone marrow biopsy. A CBC was done and showed a white count of 63.7, Hgb 12.2, and platelet count was 33K. The blasts were at 73%. Decision was made at that time to admit for salvage chemo. History: 11/04: AML Diagnosis made. 46XY, +NPM1 mutation detected, FLT3 negative-- indicates favorable prognosis. 11/05-11/28: Initial induction with MELL-C and idarubicin (7+3). STAT Leukapheresis due to leukostasis. On D2, repeat bone marrow showed residual leukemia. 12/06-12/27: Re-induction with FLANG chemotherapy. Repeat bone marrow biopsy negative for residual AML. Patient in Complete Remission 01/06-01/10: C1 consolidation chemotherapy with Mell-C. 02/17-02/21: C2 consolidation chemotherapy with MELL-C. 03/25-03/30: C3 consolidation chemotherapy with MELL-C 04/28-05/02: C4 consolidation chemo with MELL-C (2) Fever Status: Acute Plan: --BC + on 10/24 and 10/27; BC no growth on 11/01, 11/02 --port removed 11/03. culture pending --ID following --on Vanco and Azithromycin (3) Diabetes Status: Acute Plan: --on SSI Novolog medium dose -- On Metformin Assessment 46 y/o male admitted for salvage chemotherapy for relapsed AML. Attending Statement anxious to go home and have the transplant. Rash resolve. Taper down the predniisone, D/W rational to stay in the hospital. The exam, history, and the medical decision-making described in the above note were completed with the assistance of the mid-level provider. I reviewed and agree with the findings presented. I attest that I had a [id number] encounter with the patient on the same day, and personally performed and documented my assessment and findings in the medical record. Problem Qualifiers (1) Fever: Qualified Code: R50.9 - Fever, unspecified fever cause (2) Diabetes: Qualified Code: E11.9 - Type 2 diabetes mellitus without complication, without long-term current use of insulin Valarie Lopez November 11, 2016 09:11 Alexandra Olea MD November 11, 2016 22:13
[2016-11-11] MEDS: amLODIPine BESYLATE 5 MG TAB PO SCH (09:48)
[2016-11-11] MEDS: DIAZEPAM 5 MG TAB PO PRN (09:48)
[2016-11-11] MEDS: SERTRALINE HCL 50 MG TAB PO SCH (09:48)
[2016-11-11] MEDS: metFORMIN HCL 850 MG TAB PO SCH ×2 (09:48→18:06)
[2016-11-11] MEDS: LISINOPRIL 10 MG TAB PO SCH (09:49)
[2016-11-11] MEDS: diphenhydrAMINE HCL 25 MG CAP PO PRN (09:49)
[2016-11-11] MEDS: ACETAMINOPHEN 325 MG TAB PO PRN (09:49)
[2016-11-11] MEDS: predniSONE 20 MG TAB PO SCH (12:22)
[2016-11-11] MEDS: SODIUM CHLORIDE 0.9% FLUSH 10 ML FLUSH IVF SCH ×3 (12:22→21:47)
[2016-11-11] MEDS ORDERED: SIMETHICONE 125 MG CHEWABLE TAB PO PRN (17:30)
[2016-11-11 21:00] LABS: MEAN CORPUSCULAR HGB CONC 36.7 % (32.0-36.0)
[2016-11-11] MEDS: ATENOLOL 100 MG TAB PO SCH (21:40)
[2016-11-12] VITALS (7 sets, daily range): BP systolic 135–161; BP diastolic 81–98; PULSE 87–94; RESP 18–20; TEMP 96.3–98.9; O2SAT 90–100
[2016-11-12] MEDS: DIAZEPAM 10 MG TAB PO PRN ×2 (00:12→21:48)
[2016-11-12] MEDS: SODIUM CHLORIDE 0.9% FLUSH 10 ML FLUSH IVF PRN ×2 (04:29→07:02)
[2016-11-12] MEDS: PIPERACIL-TAZO 3.375 GM PREMIX 50 ML IV SCH ×4 (04:31→23:36)
[2016-11-12] MEDS ORDERED: PHARMACY ORDERED LAB ONE (05:45)
[2016-11-12] MEDS: INSULIN ASPART SUPPLEMENTAL SCALE SQ SCH ×4 (05:52→22:02)
[2016-11-12] MEDS: VANCOMYCIN INJ 2,250 MG in SODIUM CHLORID 0.9% 500 ML INJ 500 ML IV SCH (06:01)
[2016-11-12 06:14] LABS: HEMATOCRIT 22.2 % (39.0-51.0); MEAN CORPUSCULAR HEMOGLOBIN 27.2 PG (27.0-34.0); RED BLOOD COUNT 2.99 MIL/MM3 (4.50-5.90); RED CELL DISTRIBUTION WIDTH 12.9 % (11.6-17.2); WHITE BLOOD COUNT 0.1 TH/MM3 (4.0-11.0)
[2016-11-12 06:29] LABS: HEMO FLAGS AUTO DIFF
[2016-11-12 06:31] LABS: PLATELET COUNT 17 TH/MM3 (150-450)
[2016-11-12 06:47] LABS: BICARBONATE 33.9 MEQ/L (21.0-32.0); POTASSIUM 3.5 MEQ/L (3.5-5.1)
[2016-11-12] MEDS ORDERED: SODIUM CHLOR 0.9% 250 ML INJ 250 ML IV ONE (09:00)
[2016-11-12] MEDS ORDERED: predniSONE 20 MG TAB PO SCH (09:00)
[2016-11-12 09:24] LABS: POLYS (SEG NEUTROPHILS) 30 % (16-70); WBC DIFF SAMPLE 10
[2016-11-12 09:25] LABS: PLATELET ESTIMATE SMEAR RARE (NORMAL); PLATELET MORPHOLOGY NORMAL (NORMAL); SCAN/DIFF FINAL DIFF MANUAL
[2016-11-12] MEDS: metFORMIN HCL 850 MG TAB PO SCH ×2 (09:38→18:36)
[2016-11-12] MEDS: amLODIPine BESYLATE 5 MG TAB PO SCH (09:39)
[2016-11-12] MEDS: predniSONE 20 MG TAB PO SCH (09:39)
[2016-11-12] MEDS: LISINOPRIL 10 MG TAB PO SCH (09:39)
[2016-11-12] MEDS: SERTRALINE HCL 50 MG TAB PO SCH (09:39)
--- NOTE | 2016-11-12 12:38 | RADRPT ---
EXAM DATE/TIME: 11/12/2016 12:16 [facility] COMPARISON: No previous studies available for comparison. INDICATIONS : Patient has had back pain for three days. No known injury. MEDICAL HISTORY : None. SURGICAL HISTORY : None. ENCOUNTER: Subsequent ACUITY: 4 - 6 days PAIN SCORE: 8/10 LOCATION: Bilateral T-spine. FINDINGS: There is normal alignment of the thoracic vertebral bodies. Vertebral body height is maintained. No evidence of fracture or subluxation. Pedicles are intact at all levels. Scattered degenerative amaris nges. Osteopenia. The paravertebral reflections are not thickened. CONCLUSION: Scattered degenerative changes and osteopenia. Jp Her MD on November 12, 2016 at 12:35 Board Certified Radiologist. This report was verified electronically.
[2016-11-12] MEDS: diphenhydrAMINE HCL 25 MG CAP PO PRN (12:43)
[2016-11-12] MEDS: ACETAMINOPHEN 325 MG TAB PO PRN ×2 (12:44→23:31)
[2016-11-12] MEDS: DIAZEPAM 5 MG TAB PO PRN (12:47)
--- NOTE | 2016-11-12 12:51 | HHI.PR ---
Addendum to Inpatient Note Additional Information chart reviewed afebrile Creatrinine doubled Vanco trough 24+ No more + blood clx - will stop vancomycin - will cont zosyn - will chk urine eos - monitor creat Laura Galarza MD November 12, 2016 12:51
--- NOTE | 2016-11-12 13:57 | PD.ONC.PN ---
Subjective Subjective Remarks Afebrile overnight. He had some mid back and flank pain overnight that he states was quite severe. Better today. He is happy that his white count has started to move. Objective Data Date Time Temp Pulse Resp B/P Pulse Ox O2 Delivery O2 Flow Rate FiO2 11/12/16 11:50 97.7 94 20 135/81 96 11/12/16 07:50 98.6 89 20 143/84 95 11/12/16 04:30 98.8 94 18 161/88 100 11/12/16 00:15 87 156/98 11/12/16 00:00 98.9 91 18 98 11/11/16 20:00 98.8 90 18 157/93 98 11/11/16 16:00 98.1 94 18 155/84 96 11/12/16 11/12/16 11/12/16 07:00 15:00 23:00 Intake Total 650 ml 230 ml Balance 650 ml 230 ml Result Diagram: 11/12/16 0545 11/12/16 0545 Laboratory Results Laboratory Tests Test 11/12/16 11/12/16 05:45 09:46 White Blood Count 0.1 TH/MM3 Red Blood Count 2.99 MIL/MM3 Hemoglobin 8.1 GM/DL Hematocrit 22.2 % Mean Corpuscular Volume 74.0 FL Mean Corpuscular Hemoglobin 27.2 PG Mean Corpuscular Hemoglobin 36.7 % Concent Red Cell Distribution Width 12.9 % Platelet Count 17 TH/MM3 Mean Platelet Volume 7.3 FL Neutrophils (%) (Auto) % Lymphocytes (%) (Auto) % Monocytes (%) (Auto) % Eosinophils (%) (Auto) % Basophils (%) (Auto) % Neutrophils # (Auto) TH/MM3 Lymphocytes # (Auto) TH/MM3 Monocytes # (Auto) TH/MM3 Eosinophils # (Auto) TH/MM3 Basophils # (Auto) TH/MM3 CBC Comment AUTO DIFF Differential Total Cells 10 Counted Neutrophils % (Manual) 30 % Lymphocytes % 60 % Monocytes % 10 % Neutrophils # (Manual) 0.0 TH/MM3 Differential Comment FINAL DIFF MANUAL Platelet Estimate RARE Platelet Morphology Comment NORMAL Sodium Level 134 MEQ/L Potassium Level 3.5 MEQ/L Chloride Level 91 MEQ/L Carbon Dioxide Level 33.9 MEQ/L Anion Gap 9 MEQ/L Blood Urea Nitrogen 19 MG/DL Creatinine 1.05 MG/DL Estimat Glomerular Filtration 75 ML/MIN Rate Random Glucose 274 MG/DL Calcium Level 9.8 MG/DL Vancomycin Level Trough 24.5 MCG/ML Blood Bank Comment Imaging Studies Last 24 hours Impressions Thoracic Spine X-Ray 11/12/16 0000 Signed Impressions: Service Date/Time: Saturday, November 12, 2016 12:16 - CONCLUSION: Scattered degenerative changes and osteopenia. Jp Her MD Administered Medications Medications (Trade) Dose Ordered Sig/Génesis Route PRN Reason Start Time Stop Time Status Last Admin Dose Admin Acetaminophen (Tylenol) 650 mg Q4H PRN PO TEMP> 100.5F 09/25/16 08:45 11/02/16 09:32 Heparin Sodium (Porcine) (Heparin Central Flush) 500 units UNSCH IVF 09/25/16 08:45 10/30/16 20:03 Sodium Chloride (NS Flush) 5 ml UNSCH PRN IVF SEE PROTOCOL 09/25/16 08:45 11/12/16 07:02 Heparin Sodium (Porcine) (Heparin Central Flush) 250 units UNSCH PRN IVF SEE PROTOCOL 09/25/16 08:45 11/02/16 17:43 Sertraline HCl (Zoloft) 50 mg DAILY PO 09/26/16 09:00 11/12/16 09:39 Alteplase, Recombinant 2 mg 2 mg UNSCH PRN IVF SEE LABEL COMMENTS 09/25/16 10:15 10/10/16 09:09 Ondansetron HCl/ Dextrose (Zofran Inj/D5W Inj) 54 ml @ 216 mls/hr Q8H PRN IV PUSH NAUSEA OR VOMITING 09/25/16 10:30 10/27/16 06:03 Docusate Sodium (Colace) 100 mg TID PO 09/25/16 18:00 Hold 10/19/16 13:32 Atenolol (Tenormin) 100 mg HS PO 10/14/16 21:00 11/11/16 21:40 Amlodipine Besylate (Norvasc) 5 mg DAILY PO 10/15/16 09:00 11/12/16 09:39 Diazepam (Valium) 5 mg Q12H PRN PO MILD ANXIETY 10/20/16 11:15 11/12/16 12:47 Diazepam (Valium) 10 mg HS PRN PO INSOMNIA 10/21/16 08:30 11/12/16 00:12 Loperamide HCl (Imodium) 2 mg UNSCH PRN PO DIARRHEA 10/22/16 09:00 10/28/16 09:56 Lisinopril (Prinivil) 10 mg DAILY PO 10/26/16 09:00 11/12/16 09:39 Metoclopramide HCl (Reglan) 5 mg Q8H PRN PO NAUSEA 10/27/16 07:15 10/27/16 07:25 Sodium Chloride (NS Flush) DAILY IVF 11/04/16 09:00 11/11/16 21:47 Heparin Sodium (Porcine) (Heparin Central Flush) DAILY IV FLUSH 11/04/16 09:00 11/05/16 14:23 Sodium Chloride (NS Flush) UNSCH PRN IVF SEE PROTOCOL 11/03/16 17:15 11/12/16 04:29 Sodium Chloride (NS Flush) UNSCH PRN IVF SEE PROTOCOL 11/03/16 17:15 11/11/16 05:12 Oxycodone HCl (Roxicodone) 5 mg Q4H PRN PO pain 11/04/16 12:00 11/12/16 04:27 Acetaminophen (Tylenol) 650 mg Q4H PRN PO SEE LABEL COMMENTS 11/04/16 15:45 11/12/16 12:44 Diphenhydramine HCl 25 mg 25 mg Q4H PRN PO SEE LABEL COMMENTS 11/04/16 15:45 11/12/16 12:43 Piperacillin Sod/ Tazobactam Sod (Zosyn 3.375 Gm Premix) 50 ml @ 100 mls/hr Q6H IV 11/08/16 23:00 11/12/16 11:07 Metformin HCl (Glucophage) 850 mg BIDPC PO 11/09/16 18:00 11/12/16 09:38 Prednisone (Deltasone) 20 mg DAILY PO 11/11/16 12:00 11/12/16 09:39 Simethicone (Phazyme Chew) 125 mg Q8HR PRN PO GAS RETENTION 11/11/16 17:30 11/11/16 18:06 Objective Remarks GENERAL: Middle aged male sitting up in bed in no distress. SKIN: Warm and dry. PICC line, right arm, site clean without bleeding. HEAD: Normocephalic. EYES: No injection or drainage. NECK: Supple, trachea midline. CARDIOVASCULAR: Regular rate and rhythm RESPIRATORY: Breath sounds equal bilaterally. No accessory muscle use. GASTROINTESTINAL: Abdomen soft, non-tender, nondistended. : No CVA tenderness EXTREMITIES: No cyanosis. No edema. NEUROLOGICAL: No obvious focal deficit. Awake, alert, and oriented x3. Assessment/Plan Problem List: (1) AML (acute myeloid leukemia) Status: Acute Plan: 11/12/16: Will give platelets today for level of 17K. Continue to wean steroids. Flank and back pain likely related to bone marrow activity. Thoracic X -ray showed osteopenia and degenerative changes. 11/11/16: Remains afebrile. Will transfuse 1 unit platelets today. Prednisone cut to 20mg po daily. Encouraged pt to find activities to do to pass the time. 11/10/16 PRBC today. WBC still low. On prednisone for rash. Rash has resolved. No more fevers. 11/09: Change SS to medium dosing while on steroids. Rash improving. Will change to po prednisone. 11/08: Platelet transfusion today. Rash improving with steroids. 11/07 Still has rash. D/w Dr Corona. She change the a/b D/W BMT team at [facility]. He is now back in remission. Monitor cbc 11/06 No TX today. on steroid for rash. d/w Dr Corona. Core BM bx = no residual leukemia. He is in remission. d/w pt. He is very happy. will call BMT team at [facility]. 11/05 No TX today. Has rash. ?meds. ID to follow. Start steroid for rash. Flow cyto on BM shows <1% Blasts. Await core bx report. Molecular test results are pending. d/w pt and . Both are very happy. d/w BMT coordinator at [facility]. 11/04: D40/21. bone marrow biopsy and aspirate at bedside. continue abx. patient has red raised rash on flanks, none on face or chest. give 2 units pRBC, 1 unit platelet today. 11/03: D39/20. fever overnight. BC no growth. will consult IR to remove port. 11/02: D38/19. fever overnight. await blood cultures. give 1 unit pRBC. will inform ID of additional fever spike. 11/01: D37/18. spiked fever of 100.[address] Corona, ID advised to stop Zosyn, start Meropenem and continue Vanco. 10/31: D36/17. tolerating Vanco and Zosyn. rash improving. tired of being in hospital. 1 unit platelets and 1 unit pRBC today. plan for bone marrow biopsy on Monday 10/30 Prbc and plat today. No more fevers Tolerating vanco well so far.Clinically looks much better then yesterday. Extensive d/w pt and . 10/29 PRBC and plat todayD/W Dr corona regarding antibiotics. 10/28: D309/16: afebrile overnight. currently on Zosyn. persistent rash. has not been able to take exjade d/t nausea. will check ferritin 10/27: D32/13. febrile to 101.3 likely due to refusing Dapto and Micafungin last night. + rash on face and trunk. no transfusion today. 10/26: D307/17: No new fevers. Continue IV Abx per ID. Pt feeling overall better. Diarrhea is improved. Await count recovery. No transfusion today. 10/25: D3011: 2 units irradiated platelets today. Continue current IV Abx per ID. Preliminary micro ++gram positive rods 10/24: D29/10. no transfusion. abx per ID. monitor blood pressure with increased Lisinopril. 10/23: D28/9. no transfusion. continue antibiotics. will increase Lisinopril to 20mg PO daily. 10/22: D27/8; 1 unit platelets. continue abx per ID 10/21: D26/7: 1 unit pRBC. CXR 10/20: D25/6. 1 unit platelets and pRBC. stop IVF. wean Adderall 10/19: D24/5 1 unit platelets. last day of chemotherapy 10/18: D23/4. give 2 units pRBC today. monitor for fever 10/17: D22/3. continue CLAG-M. no fever. 10/16: D21/2 Pt tolerated chemo well yesterday. No fevers. Counts OK. No headache. Continue chemo. Monitor counts, fevers. 10/15 D20/1 start second cycle of CLAG-M today. D/W side effects and increase morbidity and mortality with the second cycle. He agreed . I will be OOT . Dr Newell will see him till thursday. 10/14: D19. patient started to receive Clarabine but the pump malfunction causing the chemo to spill on the floor. the chemo is being STAT ordered again and will arrive tomorrow morning. 10/13: bone marrow flow shows 70% blasts. d/w patient, repeating induction with CLAG-M chemotherapy or enrolling in a clinical trial. patient would like to try a second induction with CLAG-M. will give Neupogen today and start tomorrow. 10/12: Mildly tachycardic today in the 110's, but no fever. PRBC x 2 ordered today. ABATTOIR MANAGER replacing potassium per protocol for level of 3.2. Will monitor blood counts, heart rate. Plan for repeat BMB on this upcoming week. 10/11: Spiked a fever this morning to 101.8. Will order blood cultures x 2, check UA. No longer tachycardic. Continue IV Abx. Transfuse 1 unit platelets today. 10/10: afebrile today. tolerating blood and platelet transfusions. will keep in ICU another night as he remains tachycardic. 10/09: bone marrow biopsy today. 1 unit platelets, 2 units pRBC. spiked fever 103F. cefepime started. spoke with ID, who advised me to start Daptomycin and Micafungin. transferred to ICU after becoming tachy in 140s 10/08: day 13. 1 unit platelets. bone marrow biopsy tomorrow. 10/07: flow cytometry results returned showing NPM1 + and FLT3 +. I obtained the original pathology again from to double check and the original FLT3 was NEGATIVE. NPM1 mutation was detected 43.4%, KIT mutation not detected. 46XY 10/06: 2 units pRBC today. plan to do bone marrow biopsy AM. 10/05: 1 unit platelets today 10/04: D9. no fever. 10/03: D8. no transfusion. monitor for fever 10/02: Will give 1 unit pRBC's, platelets today. Plan for repeat BMB on 10/10. 10/01: Finished chemotherapy yesterday. Tolerated well. 1 unit irradiated PRBC's to be transfused today. Continue to closely monitor blood counts. 09/30: D5. last day of chemotherapy. will give 1 unit platelets. 09/29: D4. continue chemotherapy. no transfusion. 09/28: D3. 09/27: D2 09/26: Start on CLAG-M chemotherapy for relapsed AML. Received Neupogen yesterday. He spiked a fever this afternoon of 101.3. BC, UA, and CXR ordered. Will start pt on Cefepime. Await BC results. --On 09/18 it was noted that he had a white count at 11k and a platelet count of 76k. Blasts were at 38%. He was brought in to the clinic on 09/24 for a bone marrow biopsy. A CBC was done and showed a white count of 63.7, Hgb 12.2, and platelet count was 33K. The blasts were at 73%. Decision was made at that time to admit for salvage chemo. History: 11/04: AML Diagnosis made. 46XY, +NPM1 mutation detected, FLT3 negative-- indicates favorable prognosis. 11/05-11/28: Initial induction with MELL-C and idarubicin (7+3). STAT Leukapheresis due to leukostasis. On D2, repeat bone marrow showed residual leukemia. 12/06-12/27: Re-induction with FLANG chemotherapy. Repeat bone marrow biopsy negative for residual AML. Patient in Complete Remission 01/06-01/10: C1 consolidation chemotherapy with Mell-C. 02/17-02/21: C2 consolidation chemotherapy with MELL-C. 03/25-03/30: C3 consolidation chemotherapy with MELL-C 04/28-05/02: C4 consolidation chemo with MELL-C (2) Fever Status: Acute Plan: --BC + on 10/24 and 10/27; BC no growth on 11/01, 11/02 --port removed 11/03. culture pending --ID following --on Vanco and Azithromycin (3) Diabetes Status: Acute Plan: --on SSI Novolog medium dose -- On Metformin Assessment 46 y/o male admitted for salvage chemotherapy for relapsed AML. Attending Statement c/o L/S pain XRAY T-L-S spine = DJD increase oxycodone 10 mg d/w pt and . Pain could be BM start recovering The exam, history, and the medical decision-making described in the above note were completed with the assistance of the mid-level provider. I reviewed and agree with the findings presented. I attest that I had a [id number] encounter with the patient on the same day, and personally performed and documented my assessment and findings in the medical record. Problem Qualifiers (1) Fever: Qualified Code: R50.9 - Fever, unspecified fever cause (2) Diabetes: Qualified Code: E11.9 - Type 2 diabetes mellitus without complication, without long-term current use of insulin Valarie Lopez November 12, 2016 13:57 Alexandra Olea MD November 12, 2016 22:25
[2016-11-12 19:46] LABS: BLOOD, URINE NEG (NEG); GLUCOSE,URINE 300 mg/dL (NEG); KETONE, URINE NEG (NEG); NITRITE,URINE NEG (NEG); PH, URINE 6.5 (5.0-8.5); URINE COLOR LIGHT-YELLOW (YELLW/STRAW)
[2016-11-12 19:48] LABS: COMMENT (UR) CULT NOT INDICATED; CULTURE IF INDICATED CULT NOT INDICATED
--- NOTE | 2016-11-12 20:29 | RADRPT ---
EXAM DATE/TIME: 11/12/2016 20:09 [facility] COMPARISON: No previous studies available for comparison. INDICATIONS : Lower back pain. No recent trauma. MEDICAL HISTORY : Leukemia. Diabetes mellitus type II. SURGICAL HISTORY : None. ENCOUNTER: Subsequent ACUITY: 3 days PAIN SCORE: 8/10 LOCATION: lumbar spine. FINDINGS: Alignment is normal. There is no evidence of fracture or destructive change. Disc spaces are well pre served. There are tiny predominantly ventral endplate osteophytes best seen at L3-4 and L4-5. The obl ique views reveal satisfactory alignment of the posterior facet joints. CONCLUSION: Mild degenerative changes. No acute bony findings. Eric Santiago MD on November 12, 2016 at 20:25 Board Certified Radiologist. This report was verified electronically.
--- NOTE | 2016-11-12 20:32 | RADRPT ---
EXAM DATE/TIME: 11/12/2016 20:10 [facility] COMPARISON: No previous studies available for comparison. INDICATIONS : Lower back pain. No recent trauma. MEDICAL HISTORY : Leukemia. Diabetes mellitus type II. SURGICAL HISTORY : None. ENCOUNTER: Subsequent ACUITY: 3 days PAIN SCORE: 6/10 LOCATION: sacrum. FINDINGS: Two-view examination of the sacrum demonstrates no evidence of fracture or malalignment. The sacral ala and foramina appear symmetric and intact. The prevertebral soft tissues are within normal limits . CONCLUSION: Unremarkable examination of the sacrum. Eric Santiago MD on November 12, 2016 at 20:29 Board Certified Radiologist. This report was verified electronically.
[2016-11-12 21:01] LABS: MEAN CORPUSCULAR HGB CONC 36.6 % (32.0-36.0)
[2016-11-12] MEDS: ATENOLOL 100 MG TAB PO SCH (21:48)
[2016-11-13] VITALS: BP 156/89; PULSE 101; RESP 18; TEMP 100.7; O2SAT 98
[2016-11-13 04:00] VITALS: BP 121/80; PULSE 78; RESP 16; TEMP 98.3; O2SAT 99
[2016-11-13 04:30] VITALS: BP 137/85; PULSE 94; RESP 16; TEMP 98.7; O2SAT 96
[2016-11-13] MEDS: PIPERACIL-TAZO 3.375 GM PREMIX 50 ML IV SCH ×4 (04:50→23:09)
[2016-11-13 06:23] LABS: HEMATOCRIT 21.7 % (39.0-51.0); MEAN CELL VOLUME 73.7 FL (80.0-100.0); PLATELET COUNT 21 TH/MM3 (150-450); RED BLOOD COUNT 2.95 MIL/MM3 (4.50-5.90); RED CELL DISTRIBUTION WIDTH 12.7 % (11.6-17.2); WHITE BLOOD COUNT 0.1 TH/MM3 (4.0-11.0)
[2016-11-13 06:25] LABS: HEMO FLAGS AUTO DIFF
[2016-11-13 06:53] LABS: BICARBONATE 35.8 MEQ/L (21.0-32.0); POTASSIUM 3.3 MEQ/L (3.5-5.1)
[2016-11-13 07:30] VITALS: BP 129/81; PULSE 94; RESP 20; TEMP 97.8; O2SAT 98
[2016-11-13 09:46] LABS: BANDS 10 % (0-6); PLATELET ESTIMATE SMEAR LOW (NORMAL); POLYS (SEG NEUTROPHILS) 30 % (16-70); TOXIC GRANULATION 1+ (NORMAL); WBC DIFF SAMPLE 10
[2016-11-13 09:47] LABS: PLATELET MORPHOLOGY NORMAL (NORMAL); ROULEAUX PRESENT (NORMAL); SCAN/DIFF FINAL DIFF MANUAL
[2016-11-13] MEDS: metFORMIN HCL 850 MG TAB PO SCH ×2 (10:24→18:10)
[2016-11-13] MEDS: SERTRALINE HCL 50 MG TAB PO SCH (10:25)
[2016-11-13] MEDS: amLODIPine BESYLATE 5 MG TAB PO SCH (10:25)
[2016-11-13] MEDS: LISINOPRIL 10 MG TAB PO SCH (10:26)
[2016-11-13] MEDS: SODIUM CHLORIDE 0.9% FLUSH 10 ML FLUSH IVF SCH (10:28)
[2016-11-13 11:50] VITALS: BP 145/80; PULSE 94; RESP 20; TEMP 98.8; O2SAT 99
[2016-11-13] MEDS: INSULIN ASPART SUPPLEMENTAL SCALE SQ SCH ×3 (13:17→23:23)
--- NOTE | 2016-11-13 13:22 | PD.ONC.PN ---
Subjective Subjective Remarks Tmax 100.7 overnight. Pt resting in bed in nad. He tells me he continues to have the pain in his pelvis and back. The oxycodone makes him sleepy. He has had some increased diarrhea over the past couple days. Objective Data Date Time Temp Pulse Resp B/P Pulse Ox O2 Delivery O2 Flow Rate FiO2 11/13/16 11:50 98.8 94 20 145/80 99 11/13/16 07:30 97.8 94 20 129/81 98 11/13/16 04:30 98.7 94 16 137/85 96 11/13/16 00:00 100.7 101 18 156/89 98 11/12/16 20:00 97.9 92 18 149/96 100 11/12/16 15:50 96.3 89 20 147/85 90 11/13/16 11/13/16 11/13/16 07:00 15:00 23:00 Intake Total 500 ml Balance 500 ml Result Diagram: 11/13/16 0500 11/13/16 0500 Laboratory Results Laboratory Tests Test 11/12/16 11/13/16 14:00 05:00 Urine Color LIGHT-YELLOW Urine Turbidity CLEAR Urine pH 6.5 Urine Specific [place] 1.007 Urine Protein NEG mg/dL Urine Glucose (UA) 300 mg/dL Urine Ketones NEG mg/dL Urine Occult Blood NEG Urine Nitrite NEG Urine Bilirubin NEG Urine Urobilinogen LESS THAN 2.0 MG/DL Urine Leukocyte Esterase NEG Urine RBC LESS THAN 1 /hpf Urine WBC 1 /hpf Microscopic Urinalysis Comment CULT NOT INDICATED Urine Eosinophils NONE SEEN /HPF White Blood Count 0.1 TH/MM3 Red Blood Count 2.95 MIL/MM3 Hemoglobin 8.0 GM/DL Hematocrit 21.7 % Mean Corpuscular Volume 73.7 FL Mean Corpuscular Hemoglobin 27.0 PG Mean Corpuscular Hemoglobin 36.6 % Concent Red Cell Distribution Width 12.7 % Platelet Count 21 TH/MM3 Mean Platelet Volume 7.9 FL Neutrophils (%) (Auto) % Lymphocytes (%) (Auto) % Monocytes (%) (Auto) % Eosinophils (%) (Auto) % Basophils (%) (Auto) % Neutrophils # (Auto) TH/MM3 Lymphocytes # (Auto) TH/MM3 Monocytes # (Auto) TH/MM3 Eosinophils # (Auto) TH/MM3 Basophils # (Auto) TH/MM3 CBC Comment AUTO DIFF Differential Total Cells 10 Counted Neutrophils % (Manual) 30 % Band Neutrophils % 10 % Lymphocytes % 50 % Monocytes % 10 % Neutrophils # (Manual) 0.0 TH/MM3 Differential Comment FINAL DIFF MANUAL Toxic Granulation 1+ Platelet Estimate LOW Platelet Morphology Comment NORMAL Rouleau PRESENT Sodium Level 135 MEQ/L Potassium Level 3.3 MEQ/L Chloride Level 91 MEQ/L Carbon Dioxide Level 35.8 MEQ/L Anion Gap 8 MEQ/L Blood Urea Nitrogen 22 MG/DL Creatinine 1.17 MG/DL Estimat Glomerular Filtration 67 ML/MIN Rate Random Glucose 170 MG/DL Calcium Level 9.9 MG/DL Culture Results Microbiology Date/Time Procedure Status Source Growth 11/13/16 01:00 Aerobic Blood Culture Received Blood Peripheral Pending 11/13/16 01:00 Anaerobic Blood Culture Received Blood Peripheral Pending Administered Medications Medications (Trade) Dose Ordered Sig/Génesis Route PRN Reason Start Time Stop Time Status Last Admin Dose Admin Acetaminophen (Tylenol) 650 mg Q4H PRN PO TEMP> 100.5F 09/25/16 08:45 11/12/16 23:31 Heparin Sodium (Porcine) (Heparin Central Flush) 500 units UNSCH IVF 09/25/16 08:45 10/30/16 20:03 Sodium Chloride (NS Flush) 5 ml UNSCH PRN IVF SEE PROTOCOL 09/25/16 08:45 11/12/16 07:02 Heparin Sodium (Porcine) (Heparin Central Flush) 250 units UNSCH PRN IVF SEE PROTOCOL 09/25/16 08:45 11/02/16 17:43 Sertraline HCl (Zoloft) 50 mg DAILY PO 09/26/16 09:00 11/13/16 10:25 Alteplase, Recombinant 2 mg 2 mg UNSCH PRN IVF SEE LABEL COMMENTS 09/25/16 10:15 10/10/16 09:09 Ondansetron HCl/ Dextrose (Zofran Inj/D5W Inj) 54 ml @ 216 mls/hr Q8H PRN IV PUSH NAUSEA OR VOMITING 09/25/16 10:30 10/27/16 06:03 Docusate Sodium (Colace) 100 mg TID PO 09/25/16 18:00 Hold 10/19/16 13:32 Atenolol (Tenormin) 100 mg HS PO 10/14/16 21:00 11/12/16 21:48 Amlodipine Besylate (Norvasc) 5 mg DAILY PO 10/15/16 09:00 11/13/16 10:25 Diazepam (Valium) 5 mg Q12H PRN PO MILD ANXIETY 10/20/16 11:15 11/12/16 12:47 Diazepam (Valium) 10 mg HS PRN PO INSOMNIA 10/21/16 08:30 11/12/16 21:48 Loperamide HCl (Imodium) 2 mg UNSCH PRN PO DIARRHEA 10/22/16 09:00 10/28/16 09:56 Lisinopril (Prinivil) 10 mg DAILY PO 10/26/16 09:00 11/13/16 10:26 Metoclopramide HCl (Reglan) 5 mg Q8H PRN PO NAUSEA 10/27/16 07:15 10/27/16 07:25 Sodium Chloride (NS Flush) DAILY IVF 11/04/16 09:00 11/13/16 10:28 Heparin Sodium (Porcine) (Heparin Central Flush) DAILY IV FLUSH 11/04/16 09:00 11/05/16 14:23 Sodium Chloride (NS Flush) UNSCH PRN IVF SEE PROTOCOL 11/03/16 17:15 11/12/16 04:29 Sodium Chloride (NS Flush) UNSCH PRN IVF SEE PROTOCOL 11/03/16 17:15 11/11/16 05:12 Acetaminophen (Tylenol) 650 mg Q4H PRN PO SEE LABEL COMMENTS 11/04/16 15:45 11/12/16 12:44 Diphenhydramine HCl 25 mg 25 mg Q4H PRN PO SEE LABEL COMMENTS 11/04/16 15:45 11/12/16 12:43 Piperacillin Sod/ Tazobactam Sod (Zosyn 3.375 Gm Premix) 50 ml @ 100 mls/hr Q6H IV 11/08/16 23:00 11/13/16 04:50 Metformin HCl (Glucophage) 850 mg BIDPC PO 11/09/16 18:00 11/13/16 10:24 Prednisone (Deltasone) 20 mg DAILY PO 11/11/16 12:00 11/12/16 09:39 Simethicone (Phazyme Chew) 125 mg Q8HR PRN PO GAS RETENTION 11/11/16 17:30 11/11/16 18:06 Oxycodone HCl (Roxicodone) 10 mg Q4H PRN PO pain 1-10 11/12/16 20:00 11/13/16 04:50 Objective Remarks GENERAL: Middle aged male resting in bed in no distress. SKIN: Warm and dry. PICC line, right arm, site clean without bleeding. HEAD: Normocephalic. EYES: No injection or drainage. NECK: Supple, trachea midline. CARDIOVASCULAR: Regular rate and rhythm RESPIRATORY: Breath sounds equal bilaterally. No accessory muscle use. GASTROINTESTINAL: Abdomen soft, non-tender, nondistended. EXTREMITIES: No cyanosis. No edema. NEUROLOGICAL: No obvious focal deficit. Awake, alert, and oriented x3. Assessment/Plan Problem List: (1) AML (acute myeloid leukemia) Status: Acute Plan: 11/13/16: No transfusion today. Spoke with Dr Corona re: fever spike overnight. Plan to check a stool for Cdiff as he has been having increased diarrhea. Will put him back on Vanco if persistent fevers. Continue to wean steroids. Continue Zosyn. 11/12/16: Will give platelets today for level of 17K. Continue to wean steroids. Flank and back pain likely related to bone marrow activity. Thoracic X-ray showed osteopenia and degenerative changes. 11/11/16: Remains afebrile. Will transfuse 1 unit platelets today. Prednisone cut to 20mg po daily. Encouraged pt to find activities to do to pass the time. 11/10/16 PRBC today. WBC still low. On prednisone for rash. Rash has resolved. No more fevers. 11/09: Change SS to medium dosing while on steroids. Rash improving. Will change to po prednisone. 11/08: Platelet transfusion today. Rash improving with steroids. 11/07 Still has rash. D/w Dr Corona. She change the a/b D/W BMT team at [facility]. He is now back in remission. Monitor cbc 11/06 No TX today. on steroid for rash. d/w Dr Corona. Core BM bx = no residual leukemia. He is in remission. d/w pt. He is very happy. will call BMT team at [facility]. 11/05 No TX today. Has rash. ?meds. ID to follow. Start steroid for rash. Flow cyto on BM shows <1% Blasts. Await core bx report. Molecular test results are pending. d/w pt and . Both are very happy. d/w BMT coordinator at [facility]. 11/04: D4. bone marrow biopsy and aspirate at bedside. continue abx. patient has red raised rash on flanks, none on face or chest. give 2 units pRBC, 1 unit platelet today. 11/03: D3920. fever overnight. BC no growth. will consult IR to remove port. 11/02: D38/19. fever overnight. await blood cultures. give 1 unit pRBC. will inform ID of additional fever spike. 11/01: D37/18. spiked fever of 100.[address] Corona, ID advised to stop Zosyn, start Meropenem and continue Vanco. 10/31: D36/17. tolerating Vanco and Zosyn. rash improving. tired of being in hospital. 1 unit platelets and 1 unit pRBC today. plan for bone marrow biopsy on Monday 10/30 Prbc and plat today. No more fevers Tolerating vanco well so far.Clinically looks much better then yesterday. Extensive d/w pt and . 10/29 PRBC and plat todayD/W Dr corona regarding antibiotics. 10/28: D33/14: afebrile overnight. currently on Zosyn. persistent rash. has not been able to take exjade d/t nausea. will check ferritin 10/27: D32/13. febrile to 101.3 likely due to refusing Dapto and Micafungin last night. + rash on face and trunk. no transfusion today. 10/26: D31/12: No new fevers. Continue IV Abx per ID. Pt feeling overall better. Diarrhea is improved. Await count recovery. No transfusion today. 10/25: D30/11: 2 units irradiated platelets today. Continue current IV Abx per ID. Preliminary micro ++gram positive rods 10/24: D29/10. no transfusion. abx per ID. monitor blood pressure with increased Lisinopril. 10/23: D28/9. no transfusion. continue antibiotics. will increase Lisinopril to 20mg PO daily. 10/22: D27/8; 1 unit platelets. continue abx per ID 10/21: D26/7: 1 unit pRBC. CXR 10/20: D25/6. 1 unit platelets and pRBC. stop IVF. wean Adderall 10/19: D24/5 1 unit platelets. last day of chemotherapy 10/18: D23/4. give 2 units pRBC today. monitor for fever 10/17: D22/3. continue CLAG-M. no fever. 10/16: D21/2 Pt tolerated chemo well yesterday. No fevers. Counts OK. No headache. Continue chemo. Monitor counts, fevers. 10/15 D2/ start second cycle of CLAG-M today. D/W side effects and increase morbidity and mortality with the second cycle. He agreed . I will be OOT . Dr Newell will see him till thursday. 10/14: D19. patient started to receive Clarabine but the pump malfunction causing the chemo to spill on the floor. the chemo is being STAT ordered again and will arrive tomorrow morning. 10/13: bone marrow flow shows 70% blasts. d/w patient, repeating induction with CLAG-M chemotherapy or enrolling in a clinical trial. patient would like to try a second induction with CLAG-M. will give Neupogen today and start tomorrow. 10/12: Mildly tachycardic today in the 110's, but no fever. PRBC x 2 ordered today. CAR SCRUBBER replacing potassium per protocol for level of 3.2. Will monitor blood counts, heart rate. Plan for repeat BMB on this upcoming week. 10/11: Spiked a fever this morning to 101.8. Will order blood cultures x 2, check UA. No longer tachycardic. Continue IV Abx. Transfuse 1 unit platelets today. 10/10: afebrile today. tolerating blood and platelet transfusions. will keep in ICU another night as he remains tachycardic. 10/09: bone marrow biopsy today. 1 unit platelets, 2 units pRBC. spiked fever 103F. cefepime started. spoke with ID, who advised me to start Daptomycin and Micafungin. transferred to ICU after becoming tachy in 140s 10/08: day 13. 1 unit platelets. bone marrow biopsy tomorrow. 10/07: flow cytometry results returned showing NPM1 + and FLT3 +. I obtained the original pathology again from to double check and the original FLT3 was NEGATIVE. NPM1 mutation was detected 43.4%, KIT mutation not detected. 46XY 10/06: 2 units pRBC today. plan to do bone marrow biopsy AM. 10/05: 1 unit platelets today 10/04: D9. no fever. 10/03: D8. no transfusion. monitor for fever 10/02: Will give 1 unit pRBC's, platelets today. Plan for repeat BMB on 10/10. 10/01: Finished chemotherapy yesterday. Tolerated well. 1 unit irradiated PRBC's to be transfused today. Continue to closely monitor blood counts. 09/30: D5. last day of chemotherapy. will give 1 unit platelets. 09/29: D4. continue chemotherapy. no transfusion. 09/28: D3. 09/27: D2 09/26: Start on CLAG-M chemotherapy for relapsed AML. Received Neupogen yesterday. He spiked a fever this afternoon of 101.3. BC, UA, and CXR ordered. Will start pt on Cefepime. Await BC results. --On 09/18 it was noted that he had a white count at 11k and a platelet count of 76k. Blasts were at 38%. He was brought in to the clinic on 09/24 for a bone marrow biopsy. A CBC was done and showed a white count of 63.7, Hgb 12.2, and platelet count was 33K. The blasts were at 73%. Decision was made at that time to admit for salvage chemo. History: 11/04: AML Diagnosis made. 46XY, +NPM1 mutation detected, FLT3 negative-- indicates favorable prognosis. 11/05-11/28: Initial induction with MELL-C and idarubicin (7+3). STAT Leukapheresis due to leukostasis. On D25, repeat bone marrow showed residual leukemia. 12/06-12/27: Re-induction with FLANG chemotherapy. Repeat bone marrow biopsy negative for residual AML. Patient in Complete Remission 01/06-01/10: C1 consolidation chemotherapy with Mell-C. 02/17-02/21: C2 consolidation chemotherapy with MELL-C. 03/25-03/30: C3 consolidation chemotherapy with MELL-C 04/28-05/02: C4 consolidation chemo with MELL-C (2) Fever Status: Acute Plan: --BC + on 10/24 and 10/27; BC no growth on 11/01, 11/02 --port removed 11/03. culture pending --ID following --on Vanco and Azithromycin (3) Diabetes Status: Acute Plan: --on SSI Novolog medium dose -- On Metformin Assessment 46 y/o male admitted for salvage chemotherapy for relapsed AML. Attending Statement fever and back pain MRI L- spine = neg Continue a/b per ID. await BM recovery. Problem Qualifiers (1) Fever: Qualified Code: R50.9 - Fever, unspecified fever cause (2) Diabetes: Qualified Code: E11.9 - Type 2 diabetes mellitus without complication, without long-term current use of insulin Valarie Lopez November 13, 2016 13:22 Alexandra Olea MD November 13, 2016 22:37
--- NOTE | 2016-11-13 16:20 | HHI.IDPN ---
Subjective Subjective Remarks had a fever last night up to 100.7 co lower back pain x 3 days, tells it is severe also co diarrhea Antibiotics zosyn Allergies: Coded Allergies: Vancomycin (Verified Adverse Reaction, Severe, Diarrhea, 10/29/16) Per pt and his record review he uneventfully took IV vancomycin in December 2015. In october 16-2016 he developped severe diarrhea during vancomycin use, no rash per his account. Objective . Vital Signs Date Time Temp Pulse Resp B/P Pulse Ox O2 Delivery O2 Flow Rate FiO2 11/13/16 11:50 98.8 94 20 145/80 99 11/13/16 07:30 97.8 94 20 129/81 98 11/13/16 04:30 98.7 94 16 137/85 96 11/13/16 00:00 100.7 101 18 156/89 98 11/12/16 20:00 97.9 92 18 149/96 100 11/12/16 11/12/16 11/13/16 15:00 23:00 07:00 Intake Total 1191 ml 800 ml 500 ml Balance 1191 ml 800 ml 500 ml Intake Oral 961 ml 800 ml 500 ml IV Total 230 ml # Voids 8 3 2 # Bowel Movements 4 1 . Laboratory Tests Test 11/12/16 11/13/16 05:45 05:00 White Blood Count 0.1 TH/MM3 0.1 TH/MM3 Red Blood Count 2.99 MIL/MM3 2.95 MIL/MM3 Hemoglobin 8.1 GM/DL 8.0 GM/DL Hematocrit 22.2 % 21.7 % Mean Corpuscular Volume 74.0 FL 73.7 FL Mean Corpuscular Hemoglobin 27.2 PG 27.0 PG Mean Corpuscular Hemoglobin 36.7 % 36.6 % Concent Red Cell Distribution Width 12.9 % 12.7 % Platelet Count 17 TH/MM3 21 TH/MM3 Mean Platelet Volume 7.3 FL 7.9 FL Neutrophils (%) (Auto) % % Lymphocytes (%) (Auto) % % Monocytes (%) (Auto) % % Eosinophils (%) (Auto) % % Basophils (%) (Auto) % % Neutrophils # (Auto) TH/MM3 TH/MM3 Lymphocytes # (Auto) TH/MM3 TH/MM3 Monocytes # (Auto) TH/MM3 TH/MM3 Eosinophils # (Auto) TH/MM3 TH/MM3 Basophils # (Auto) TH/MM3 TH/MM3 CBC Comment AUTO DIFF AUTO DIFF Differential Total Cells 10 10 Counted Neutrophils % (Manual) 30 % 30 % Lymphocytes % 60 % 50 % Monocytes % 10 % 10 % Neutrophils # (Manual) 0.0 TH/MM3 0.0 TH/MM3 Differential Comment FINAL DIFF FINAL DIFF MANUAL MANUAL Platelet Estimate RARE LOW Platelet Morphology Comment NORMAL NORMAL Band Neutrophils % 10 % Toxic Granulation 1+ Rouleau PRESENT Laboratory Tests Test 11/12/16 11/13/16 05:45 05:00 Sodium Level 134 MEQ/L 135 MEQ/L Potassium Level 3.5 MEQ/L 3.3 MEQ/L Chloride Level 91 MEQ/L 91 MEQ/L Carbon Dioxide Level 33.9 MEQ/L 35.8 MEQ/L Anion Gap 9 MEQ/L 8 MEQ/L Blood Urea Nitrogen 19 MG/DL 22 MG/DL Creatinine 1.05 MG/DL 1.17 MG/DL Estimat Glomerular Filtration 75 ML/MIN 67 ML/MIN Rate Random Glucose 274 MG/DL 170 MG/DL Calcium Level 9.8 MG/DL 9.9 MG/DL Microbiology Date/Time Procedure Status Source Growth 11/13/16 01:00 Aerobic Blood Culture Received Blood Peripheral Pending 11/13/16 01:00 Anaerobic Blood Culture Received Blood Peripheral Pending Imaging Last Impressions Thoracic Spine X-Ray 11/12/16 0000 Signed Impressions: Service Date/Time: Saturday, November 12, 2016 12:16 - CONCLUSION: Scattered degenerative changes and osteopenia. Jp Her MD Sacrum X-Ray 11/12/16 0000 Signed Impressions: Service Date/Time: Saturday, November 12, 2016 20:10 - CONCLUSION: Unremarkable examination of the sacrum. Eric Santiago MD Lumbar Spine X-Ray 11/12/16 0000 Signed Impressions: Service Date/Time: Saturday, November 12, 2016 20:09 - CONCLUSION: Mild degenerative changes. No acute bony findings. Eric Santiago MD PICC Line Insertion 11/03/16 1135 Signed Impressions: Service Date/Time: Thursday, November 03, 2016 15:49 - CONCLUSION: 1. Uncomplicated central venous Power PICC line placement. 2. The PICC line can be used immediately. Isai Healy Jr., MD Port Line Revision 11/03/16 0000 Signed Impressions: Service Date/Time: Thursday, November 03, 2016 00:00 - CONCLUSION: Uncomplicated port removal as above. The tip of the catheter was sent for culture. Isai Healy Jr., MD Chest X-Ray 11/03/16 0000 Signed Impressions: Service Date/Time: Thursday, November 03, 2016 18:12 - CONCLUSION: 1. No pneumonia or other acute cardiopulmonary disease. 2. Right IJ [id number] catheter out in the interim. There is now a right arm PICC with tip in the superior vena cava. Eric Ontiveros MD Head CT 10/14/16 0000 Signed Impressions: Service Date/Time: Friday, October 14, 2016 09:52 - CONCLUSION: 1. No acute intracranial abnormality is identified. 2. Minimal mucoperiosteal thickening in the left maxillary and ethmoid sinus. Eric Collazo MD Physical Exam CONSTITUTIONAL/GENERAL: This is an adequately nourished patient, in no apparent distress. looks better TUBES/LINES/DRAINS: PORT in R chest - site OK, SKIN: No jaundice, rash resolved EYES: Pupils equal and round and reactive. No injection or drainage. Fundi not examined. CARDIOVASCULAR: Regular rate and rhythm without murmurs, gallops, or rubs. RESPIRATORY/CHEST: Symmetric, unlabored respirations. Clear to auscultation. Breath sounds equal bilaterally. No wheezes, rales, or rhonchi. GASTROINTESTINAL: Abdomen soft, non-tender, not distended. No hepato- splenomegaly, or palpable masses. No guarding. Bowel sounds present. MUSCULOSKELETAL: Extremities without clubbing, cyanosis, or edema. NEUROLOGICAL: awake and alert . Normal speech. Follows commands. Moves all extremities. PSYCHIATRIC: No obvious anxiety/depression. 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 vanco contributing - -cont zosyn -cont vanco for corynobacterium sespsis - MRI back - repeat blood clx - repeat stool for c.diff dw Laura Oden MD November 13, 2016 16:20
[2016-11-13] MEDS: predniSONE 10 MG TAB PO SCH (18:10)
[2016-11-13 20:00] VITALS: BP 143/93; PULSE 99; RESP 17; TEMP 98.9; O2SAT 96
[2016-11-13] MEDS: ATENOLOL 100 MG TAB PO SCH (20:36)
[2016-11-13] MEDS ORDERED: GADOBENATE DIM PF 529 MG/ML 20ML VIAL (for RAD MRI) IV ONE (21:19)
--- NOTE | 2016-11-13 22:26 | RADRPT ---
EXAM DATE/TIME: 11/13/2016 20:55 [facility] COMPARISON: No previous studies available for comparison. INDICATIONS : Pain. CONTRAST: 20 cc Multihance (gadobenate) IV MEDICAL HISTORY : Leukemia. AML. Hemochromatosis. Diabetes. SURGICAL HISTORY : Tonsillectomy. ENCOUNTER: Subsequent ACUITY: 2 day PAIN SCORE: 5/10 LOCATION: Lower back. TECHNIQUE: Multiplanar multisequence MRI of the lumbar spine was performed with and without contrast. FINDINGS: The most caudal appearing lumbar vertebra is numbered as L5. VERTEBRAE: Homogeneous signal. Normal alignment. CONUS: Normal level and configuration. POST CONTRAST: No abnormal areas of contrast enhancement are seen. T12-L1: The thecal sac has a normal diameter. No evidence of disc bulge or protrusion. The neural foramina are patent bilaterally. L1-L2: The thecal sac has a normal diameter. No evidence of disc bulge or protrusion. The neural foramina are patent bilaterally. L2-L3: The thecal sac has a normal diameter. No evidence of disc bulge or protrusion. The neural foramina are patent bilaterally. L3-L4: The thecal sac has a normal diameter. No evidence of disc bulge or protrusion. The neural foramina are patent bilaterally. L4-L5: Slight disc dehydration. There is a tiny focus of T2 prolongation at the central margin of the annulu s dorsally and could represent site of a tiny subacute annular tear. No significant associated protru neno. No canal or foraminal compromise. L5-S1: The thecal sac has a normal diameter. No evidence of disc bulge or protrusion. The neural foramina are patent bilaterally. CONCLUSION: Tiny central annular tear dorsally at L4-5. No evidence of malignant changes in the lumbar spine and no significant anatomic compromise. Eric Santiago MD on November 13, 2016 at 22:20 Board Certified Radiologist. This report was verified electronically.
[2016-11-13] MEDS: DIAZEPAM 10 MG TAB PO PRN (23:21)
[2016-11-13] MEDS: ONDANSETRON INJ 8 MG in DEXTROSE 5% IN WATER INJ 50 ML IV PUSH PRN ×2 (23:59)
[2016-11-14] VITALS (8 sets, daily range): BP systolic 93–121; BP diastolic 52–81; PULSE 16–102; RESP 16–18; TEMP 96.7–98.6; O2SAT 94–100
[2016-11-14] MEDS: PIPERACIL-TAZO 3.375 GM PREMIX 50 ML IV SCH ×3 (06:17→18:47)
[2016-11-14] MEDS: INSULIN ASPART SUPPLEMENTAL SCALE SQ SCH ×4 (06:26→21:39)
[2016-11-14] MEDS: LISINOPRIL 10 MG TAB PO SCH (09:00)
[2016-11-14] MEDS: amLODIPine BESYLATE 5 MG TAB PO SCH (09:00)
[2016-11-14 10:52] LABS: MEAN CORPUSCULAR HGB CONC 36.5 % (32.0-36.0)
[2016-11-14] MEDS: predniSONE 10 MG TAB PO SCH (10:58)
[2016-11-14] MEDS: metFORMIN HCL 850 MG TAB PO SCH (10:59)
[2016-11-14] MEDS: SERTRALINE HCL 50 MG TAB PO SCH (10:59)
--- NOTE | 2016-11-14 12:13 | PD.ONC.PN ---
Subjective Subjective Remarks Afebrile overnight. Patient feeling tired of being in the hospital. No bleeding. Still no appetite. Trying to eat as best he can. Objective Data Date Time Temp Pulse Resp B/P Pulse Ox O2 Delivery O2 Flow Rate FiO2 11/14/16 08:00 97.5 80 16 97/52 100 11/14/16 06:00 96.8 90 17 93/57 97 11/14/16 00:00 98.6 102 17 110/70 94 11/13/16 20:00 98.9 99 17 143/93 96 Result Diagram: 11/13/16 0500 11/13/16 0500 Culture Results Microbiology Date/Time Procedure Status Source Growth 11/13/16 01:00 Aerobic Blood Culture - Preliminary Resulted Blood Peripheral NO GROWTH IN 1 DAY 11/13/16 01:00 Anaerobic Blood Culture - Preliminary Resulted Blood Peripheral NO GROWTH IN 1 DAY Administered Medications Medications (Trade) Dose Ordered Sig/Génesis Route PRN Reason Start Time Stop Time Status Last Admin Dose Admin Acetaminophen (Tylenol) 650 mg Q4H PRN PO TEMP> 100.5F 09/25/16 08:45 11/12/16 23:31 Heparin Sodium (Porcine) (Heparin Central Flush) 500 units UNSCH IVF 09/25/16 08:45 10/30/16 20:03 Sodium Chloride (NS Flush) 5 ml UNSCH PRN IVF SEE PROTOCOL 09/25/16 08:45 11/12/16 07:02 Heparin Sodium (Porcine) (Heparin Central Flush) 250 units UNSCH PRN IVF SEE PROTOCOL 09/25/16 08:45 11/02/16 17:43 Sertraline HCl (Zoloft) 50 mg DAILY PO 09/26/16 09:00 11/14/16 10:59 Alteplase, Recombinant 2 mg 2 mg UNSCH PRN IVF SEE LABEL COMMENTS 09/25/16 10:15 10/10/16 09:09 Ondansetron HCl/ Dextrose (Zofran Inj/D5W Inj) 54 ml @ 216 mls/hr Q8H PRN IV PUSH NAUSEA OR VOMITING 09/25/16 10:30 11/13/16 23:59 Docusate Sodium (Colace) 100 mg TID PO 09/25/16 18:00 Hold 10/19/16 13:32 Atenolol (Tenormin) 100 mg HS PO 10/14/16 21:00 Hold 11/13/16 20:36 Amlodipine Besylate (Norvasc) 5 mg DAILY PO 10/15/16 09:00 Hold 11/13/16 10:25 Diazepam (Valium) 5 mg Q12H PRN PO MILD ANXIETY 10/20/16 11:15 11/12/16 12:47 Diazepam (Valium) 10 mg HS PRN PO INSOMNIA 10/21/16 08:30 11/13/16 23:21 Loperamide HCl (Imodium) 2 mg UNSCH PRN PO DIARRHEA 10/22/16 09:00 10/28/16 09:56 Lisinopril (Prinivil) 10 mg DAILY PO 10/26/16 09:00 Hold 11/13/16 10:26 Metoclopramide HCl (Reglan) 5 mg Q8H PRN PO NAUSEA 10/27/16 07:15 10/27/16 07:25 Sodium Chloride (NS Flush) DAILY IVF 11/04/16 09:00 11/13/16 10:28 Heparin Sodium (Porcine) (Heparin Central Flush) DAILY IV FLUSH 11/04/16 09:00 11/05/16 14:23 Sodium Chloride (NS Flush) UNSCH PRN IVF SEE PROTOCOL 11/03/16 17:15 11/12/16 04:29 Sodium Chloride (NS Flush) UNSCH PRN IVF SEE PROTOCOL 11/03/16 17:15 11/11/16 05:12 Acetaminophen (Tylenol) 650 mg Q4H PRN PO SEE LABEL COMMENTS 11/04/16 15:45 11/12/16 12:44 Diphenhydramine HCl 25 mg 25 mg Q4H PRN PO SEE LABEL COMMENTS 11/04/16 15:45 11/12/16 12:43 Piperacillin Sod/ Tazobactam Sod (Zosyn 3.375 Gm Premix) 50 ml @ 100 mls/hr Q6H IV 11/08/16 23:00 11/14/16 11:06 Metformin HCl (Glucophage) 850 mg BIDPC PO 11/09/16 18:00 11/14/16 10:59 Simethicone (Phazyme Chew) 125 mg Q8HR PRN PO GAS RETENTION 11/11/16 17:30 11/11/16 18:06 Oxycodone HCl (Roxicodone) 10 mg Q4H PRN PO pain 1-10 11/12/16 20:00 11/13/16 19:30 Prednisone (Deltasone) 10 mg DAILY PO 11/13/16 14:00 11/14/16 10:58 Objective Remarks GENERAL: Middle aged male, sitting up in chair next to bed in [facility] SKIN: Warm and dry. HEAD: Normocephalic. EYES: No injection or drainage. NECK: Supple, trachea midline. CARDIOVASCULAR: Regular rate and rhythm RESPIRATORY: Breath sounds equal bilaterally. No accessory muscle use. GASTROINTESTINAL: Abdomen soft, non-tender, nondistended. EXTREMITIES: No cyanosis NEUROLOGICAL: No obvious focal deficit. Awake, alert, and oriented x3. Assessment/Plan Problem List: (1) AML (acute myeloid leukemia) Status: Acute Plan: 11/14/16: give 2 units pRBC 1 unit platelets. continue abx. continue Prednisone at 10mg today. continue to wean as tolerated. 11/13/16: No transfusion today. Spoke with Dr Corona re: fever spike overnight. Plan to check a stool for Cdiff as he has been having increased diarrhea. Will put him back on Vanco if persistent fevers. Continue to wean steroids. Continue Zosyn. 11/12/16: Will give platelets today for level of 17K. Continue to wean steroids. Flank and back pain likely related to bone marrow activity. Thoracic X-ray showed osteopenia and degenerative changes. 11/11/16: Remains afebrile. Will transfuse 1 unit platelets today. Prednisone cut to 20mg po daily. Encouraged pt to find activities to do to pass the time. 11/10/16 PRBC today. WBC still low. On prednisone for rash. Rash has resolved. No more fevers. 11/09: Change SS to medium dosing while on steroids. Rash improving. Will change to po prednisone. 11/08: Platelet transfusion today. Rash improving with steroids. 11/07 Still has rash. D/w Dr Corona. She change the a/b D/W BMT team at [facility]. He is now back in remission. Monitor cbc 11/06 No TX today. on steroid for rash. d/w Dr Corona.Core BM bx = no residual leukemia. He is in remission. d/w pt. He is very happy. will call BMT team at [facility]. 11/05 No TX today. Has rash. ?meds. ID to follow. Start steroid for rash. Flow cyto on BM shows <1% Blasts. Await core bx report. Molecular test results are pending. d/w pt and . Both are very happy. d/w BMT coordinator at [facility]. 11/04: D40/21. bone marrow biopsy and aspirate at bedside. continue abx. patient has red raised rash on flanks, none on face or chest. give 2 units pRBC, 1 unit platelet today. 11/03: D39/20. fever overnight. BC no growth. will consult IR to remove port. 11/02: D38/19. fever overnight. await blood cultures. give 1 unit pRBC. will inform ID of additional fever spike. 11/01: D37/18. spiked fever of 100.[address] Corona, ID advised to stop Zosyn, start Meropenem and continue Vanco. 10/31: D36/17. tolerating Vanco and Zosyn. rash improving. tired of being in hospital. 1 unit platelets and 1 unit pRBC today. plan for bone marrow biopsy on Monday 10/30 Prbc and plat today. No more fevers Tolerating vanco well so far.Clinically looks much better then yesterday. Extensive d/w pt and . 10/29 PRBC and plat todayD/W Dr corona regarding antibiotics. 10/28: D33/14: afebrile overnight. currently on Zosyn. persistent rash. has not been able to take exjade d/t nausea. will check ferritin 10/27: D32/13. febrile to 101.3 likely due to refusing Dapto and Micafungin last night. + rash on face and trunk. no transfusion today. 10/26: D31/12: No new fevers. Continue IV Abx per ID. Pt feeling overall better. Diarrhea is improved. Await count recovery. No transfusion today. 10/25: D30/11: 2 units irradiated platelets today. Continue current IV Abx per ID. Preliminary micro ++gram positive rods 10/24: D29/10. no transfusion. abx per ID. monitor blood pressure with increased Lisinopril. 10/23: D28/9. no transfusion. continue antibiotics. will increase Lisinopril to 20mg PO daily. 10/22: D27/8; 1 unit platelets. continue abx per ID 10/21: D26/7: 1 unit pRBC. CXR 10/20: D25/6. 1 unit platelets and pRBC. stop IVF. wean Adderall 10/19: D24/5 1 unit platelets. last day of chemotherapy 10/18: D23/4. give 2 units pRBC today. monitor for fever 10/17: D22/3. continue CLAG-M. no fever. 10/16: D21/2 Pt tolerated chemo well yesterday. No fevers. Counts OK. No headache. Continue chemo. Monitor counts, fevers. 10/15 D2 start second cycle of CLAG-M today. D/W side effects and increase morbidity and mortality with the second cycle. He agreed . I will be OOT . Dr Newell will see him till thursday. 10/14: D19. patient started to receive Clarabine but the pump malfunction causing the chemo to spill on the floor. the chemo is being STAT ordered again and will arrive tomorrow morning. 10/13: bone marrow flow shows 70% blasts. d/w patient, repeating induction with CLAG-M chemotherapy or enrolling in a clinical trial. patient would like to try a second induction with CLAG-M. will give Neupogen today and start tomorrow. 10/12: Mildly tachycardic today in the 110's, but no fever. PRBC x 2 ordered today. DIRECTOR [employer]IGI[employer] EDUCATION replacing potassium per protocol for level of 3.2. Will monitor blood counts, heart rate. Plan for repeat BMB on this upcoming week. 10/11: Spiked a fever this morning to 101.8. Will order blood cultures x 2, check UA. No longer tachycardic. Continue IV Abx. Transfuse 1 unit platelets today. 10/10: afebrile today. tolerating blood and platelet transfusions. will keep in ICU another night as he remains tachycardic. 10/09: bone marrow biopsy today. 1 unit platelets, 2 units pRBC. spiked fever 103F. cefepime started. spoke with ID, who advised me to start Daptomycin and Micafungin. transferred to ICU after becoming tachy in 140s 10/08: day 13. 1 unit platelets. bone marrow biopsy tomorrow. 10/07: flow cytometry results returned showing NPM1 + and FLT3 +. I obtained the original pathology again from to double check and the original FLT3 was NEGATIVE. NPM1 mutation was detected 43.4%, KIT mutation not detected. 46XY 10/06: 2 units pRBC today. plan to do bone marrow biopsy AM. 10/05: 1 unit platelets today 10/04: D9. no fever. 10/03: D8. no transfusion. monitor for fever 10/02: Will give 1 unit pRBC's, platelets today. Plan for repeat BMB on 10/10. 10/01: Finished chemotherapy yesterday. Tolerated well. 1 unit irradiated PRBC's to be transfused today. Continue to closely monitor blood counts. 09/30: D5. last day of chemotherapy. will give 1 unit platelets. 09/29: D4. continue chemotherapy. no transfusion. 09/28: D3. 09/27: D2 09/26: Start on CLAG-M chemotherapy for relapsed AML. Received Neupogen yesterday. He spiked a fever this afternoon of 101.3. BC, UA, and CXR ordered. Will start pt on Cefepime. Await BC results. --On 09/18 it was noted that he had a white count at 11k and a platelet count of 76k. Blasts were at 38%. He was brought in to the clinic on 09/24 for a bone marrow biopsy. A CBC was done and showed a white count of 63.7, Hgb 12.2, and platelet count was 33K. The blasts were at 73%. Decision was made at that time to admit for salvage chemo. History: 11/04: AML Diagnosis made. 46XY, +NPM1 mutation detected, FLT3 negative-- indicates favorable prognosis. 11/05-11/28: Initial induction with MELL-C and idarubicin (7+3). STAT Leukapheresis due to leukostasis. On D2, repeat bone marrow showed residual leukemia. 12/06-12/27: Re-induction with FLANG chemotherapy. Repeat bone marrow biopsy negative for residual AML. Patient in Complete Remission 01/06-01/10: C1 consolidation chemotherapy with Mell-C. 02/17-02/21: C2 consolidation chemotherapy with MELL-C. 03/25-03/30: C3 consolidation chemotherapy with MELL-C 04/28-05/02: C4 consolidation chemo with MELL-C (2) Fever Status: Acute Plan: --BC + on 10/24 and 10/27; BC no growth on 11/01, 11/02, 11/13 --port removed 11/03. culture showed no growt --ID following --on IV Zosyn (3) Diabetes Status: Acute Plan: --on SSI Novolog medium dose Assessment 46 y/o male admitted for salvage chemotherapy for relapsed AML. Attending Statement c/o back pain but states improving. NO appetite. Weak to walk. prbc and plat today. AWait BM recovery. The exam, history, and the medical decision-making described in the above note were completed with the assistance of the mid-level provider. I reviewed and agree with the findings presented. I attest that I had a [id number] encounter with the patient on the same day, and personally performed and documented my assessment and findings in the medical record. Problem Qualifiers (1) Fever: Qualified Code: R50.9 - Fever, unspecified fever cause (2) Diabetes: Qualified Code: E11.9 - Type 2 diabetes mellitus without complication, without long-term current use of insulin Janet Holm November 14, 2016 12:13 Alexandra Olea MD November 14, 2016 23:35
[2016-11-14 12:19] LABS: MEAN CELL VOLUME 72.7 FL (80.0-100.0); MEAN CORPUSCULAR HEMOGLOBIN 26.5 PG (27.0-34.0); RED BLOOD COUNT 2.61 MIL/MM3 (4.50-5.90); RED CELL DISTRIBUTION WIDTH 13.1 % (11.6-17.2); WHITE BLOOD COUNT 0.1 TH/MM3 (4.0-11.0)
[2016-11-14 12:25] LABS: HEMO FLAGS AUTO DIFF
[2016-11-14 12:29] LABS: PLATELET COUNT 10 TH/MM3 (150-450)
[2016-11-14 12:35] LABS: ALT (GPT) 20 U/L (12-78); ANION GAP 5 MEQ/L (5-15); AST (GOT) 13 U/L (15-37); BICARBONATE 36.8 MEQ/L (21.0-32.0); BLOOD UREA NITROGEN 20 MG/DL (7-18); CHLORIDE 94 MEQ/L (98-107); GLOMERULAR FILTRATION RATE 77 ML/MIN (>89); POTASSIUM 3.3 MEQ/L (3.5-5.1); SODIUM (NA) 136 MEQ/L (136-145)
[2016-11-14 12:37] LABS: ALKALINE PHOSPHATASE 77 U/L (45-117)
[2016-11-14 12:56] LABS: BANDS 10 % (0-6); POLYS (SEG NEUTROPHILS) 30 % (16-70); WBC DIFF SAMPLE 10
[2016-11-14 12:57] LABS: PLATELET ESTIMATE SMEAR RARE (NORMAL); PLATELET MORPHOLOGY NORMAL (NORMAL); SCAN/DIFF FINAL DIFF MANUAL
[2016-11-14] MEDS ORDERED: ACETAMINOPHEN 325 MG TAB PO PRN (13:00)
[2016-11-14] MEDS ORDERED: SODIUM CHLOR 0.9% 250 ML INJ 250 ML IV ONE (13:00)
[2016-11-14] MEDS ORDERED: diphenhydrAMINE HCL 25 MG CAP PO PRN (13:00)
--- NOTE | 2016-11-14 16:37 | HHI.IDPN ---
Subjective Subjective Remarks no fever cont to have diarrhea + lowert back pain MRI with Tiny central annular tear dorsally at L4-5. Antibiotics zosyn Allergies: Coded Allergies: Vancomycin (Verified Adverse Reaction, Severe, Diarrhea, 10/29/16) Per pt and his record review he uneventfully took IV vancomycin in December 2015. In october 16-2016 he developped severe diarrhea during vancomycin use, no rash per his account. Objective . Vital Signs Date Time Temp Pulse Resp B/P Pulse Ox O2 Delivery O2 Flow Rate FiO2 11/14/16 12:00 96.7 82 17 118/81 100 11/14/16 08:00 97.5 80 16 97/52 100 11/14/16 06:00 96.8 90 17 93/57 97 11/14/16 00:00 98.6 102 17 110/70 94 11/13/16 20:00 98.9 99 17 143/93 96 11/13/16 11/13/16 11/14/16 15:00 23:00 07:00 Intake Total 970 ml 310 ml 60 ml Balance 970 ml 310 ml 60 ml Intake Oral 970 ml 240 ml 60 ml IV Total 70 ml # Voids 6 3 2 # Bowel Movements 1 0 0 . Laboratory Tests Test 11/13/16 11/14/16 05:00 11:57 White Blood Count 0.1 TH/MM3 0.1 TH/MM3 Red Blood Count 2.95 MIL/MM3 2.61 MIL/MM3 Hemoglobin 8.0 GM/DL 6.9 GM/DL Hematocrit 21.7 % 19.0 % Mean Corpuscular Volume 73.7 FL 72.7 FL Mean Corpuscular Hemoglobin 27.0 PG 26.5 PG Mean Corpuscular Hemoglobin 36.6 % 36.5 % Concent Red Cell Distribution Width 12.7 % 13.1 % Platelet Count 21 TH/MM3 10 TH/MM3 Mean Platelet Volume 7.9 FL 7.3 FL Neutrophils (%) (Auto) % % Lymphocytes (%) (Auto) % % Monocytes (%) (Auto) % % Eosinophils (%) (Auto) % % Basophils (%) (Auto) % % Neutrophils # (Auto) TH/MM3 TH/MM3 Lymphocytes # (Auto) TH/MM3 TH/MM3 Monocytes # (Auto) TH/MM3 TH/MM3 Eosinophils # (Auto) TH/MM3 TH/MM3 Basophils # (Auto) TH/MM3 TH/MM3 CBC Comment AUTO DIFF AUTO DIFF Differential Total Cells 10 10 Counted Neutrophils % (Manual) 30 % 30 % Band Neutrophils % 10 % 10 % Lymphocytes % 50 % 10 % Monocytes % 10 % 50 % Neutrophils # (Manual) 0.0 TH/MM3 0.0 TH/MM3 Differential Comment FINAL DIFF FINAL DIFF MANUAL MANUAL Toxic Granulation 1+ Platelet Estimate LOW RARE Platelet Morphology Comment NORMAL NORMAL Rouleau PRESENT Laboratory Tests Test 11/13/16 11/14/16 05:00 11:57 Sodium Level 135 MEQ/L 136 MEQ/L Potassium Level 3.3 MEQ/L 3.3 MEQ/L Chloride Level 91 MEQ/L 94 MEQ/L Carbon Dioxide Level 35.8 MEQ/L 36.8 MEQ/L Anion Gap 8 MEQ/L 5 MEQ/L Blood Urea Nitrogen 22 MG/DL 20 MG/DL Creatinine 1.17 MG/DL 1.03 MG/DL Estimat Glomerular Filtration 67 ML/MIN 77 ML/MIN Rate Random Glucose 170 MG/DL 166 MG/DL Calcium Level 9.9 MG/DL 9.9 MG/DL Total Bilirubin 1.0 MG/DL Aspartate Amino Transf 13 U/L (AST/SGOT) Alanine Aminotransferase 20 U/L (ALT/SGPT) Alkaline Phosphatase 77 U/L Total Protein 6.5 GM/DL Albumin 2.9 GM/DL Microbiology Date/Time Procedure Status Source Growth 11/13/16 01:00 Aerobic Blood Culture - Preliminary Resulted Blood Peripheral NO GROWTH IN 1 DAY 11/13/16 01:00 Anaerobic Blood Culture - Preliminary Resulted Blood Peripheral NO GROWTH IN 1 DAY Imaging Last Impressions Lumbar Spine MRI 11/13/16 0000 Signed Impressions: Service Date/Time: November 20:55 - CONCLUSION: Tiny central annular tear dorsally at L4-5. No evidence of malignant changes in the lumbar spine and no significant anatomic compromise. Eric Santiago MD Thoracic Spine X-Ray 11/12/16 0000 Signed Impressions: Service Date/Time: Saturday, November 12, 2016 12:16 - CONCLUSION: Scattered degenerative changes and osteopenia. Jp Her MD Sacrum X-Ray 11/12/16 0000 Signed Impressions: Service Date/Time: Saturday, November 12, 2016 20:10 - CONCLUSION: Unremarkable examination of the sacrum. Eric Santiago MD Lumbar Spine X-Ray 11/12/16 0000 Signed Impressions: Service Date/Time: Saturday, November 12, 2016 20:09 - CONCLUSION: Mild degenerative changes. No acute bony findings. Eric Santiago MD PICC Line Insertion 11/03/16 1135 Signed Impressions: Service Date/Time: Thursday, November 03, 2016 15:49 - CONCLUSION: 1. Uncomplicated central venous Power PICC line placement. 2. The PICC line can be used immediately. Isai Healy Jr., MD Port Line Revision 11/03/16 0000 Signed Impressions: Service Date/Time: Thursday, November 03, 2016 00:00 - CONCLUSION: Uncomplicated port removal as above. The tip of the catheter was sent for culture. Isai Healy Jr., MD Chest X-Ray 11/03/16 0000 Signed Impressions: Service Date/Time: Thursday, November 03, 2016 18:12 - CONCLUSION: 1. No pneumonia or other acute cardiopulmonary disease. 2. Right IJ [id number] catheter out in the interim. There is now a right arm PICC with tip in the superior vena cava. Eric Ontiveros MD Head CT 10/14/16 0000 Signed Impressions: Service Date/Time: Friday, October 14, 2016 09:52 - CONCLUSION: 1. No acute intracranial abnormality is identified. 2. Minimal mucoperiosteal thickening in the left maxillary and ethmoid sinus. Eric Collazo MD Physical Exam CONSTITUTIONAL/GENERAL: This is an adequately nourished patient, in no apparent distress. looks fairly well TUBES/LINES/DRAINS: PORT in R chest - site OK, SKIN: No jaundice, rash resolved EYES: Pupils equal and round and reactive. No injection or drainage. Fundi not examined. CARDIOVASCULAR: Regular rate and rhythm without murmurs, gallops, or rubs. RESPIRATORY/CHEST: Symmetric, unlabored respirations. Clear to auscultation. Breath sounds equal bilaterally. No wheezes, rales, or rhonchi. GASTROINTESTINAL: Abdomen soft, non-tender, not distended. No hepato- splenomegaly, or palpable masses. No guarding. Bowel sounds present. MUSCULOSKELETAL: Extremities without clubbing, cyanosis, or edema. NEUROLOGICAL: awake and alert . Normal speech. Follows commands. Moves all extremities. PSYCHIATRIC: No obvious anxiety/depression. 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 recurrent diarrhea Intermittent fever - resolved Worsening renal fnx ? vanco contributing : better - -cont zosyn -fu repeat blood clx - fu repeat stool for c.diff dw pt Laura Galarza MD November 14, 2016 16:37
[2016-11-14] MEDS: POTASSIUM CHLORIDE 10 MEQ CAP PO SCH ×3 (16:54→21:22)
[2016-11-14] MEDS: ACETAMINOPHEN 325 MG TAB PO PRN (16:54)
[2016-11-14] MEDS: diphenhydrAMINE HCL 25 MG CAP PO PRN (16:54)
[2016-11-14] MEDS: DIAZEPAM 5 MG TAB PO PRN (17:00)
[2016-11-14] MEDS: SODIUM CHLORIDE 0.9% FLUSH 10 ML FLUSH IVF SCH (17:08)
[2016-11-14 18:36] LABS: C. DIFF EPI 027 PRESUMPTIVE NEGATIVE (NEGATIVE); C. DIFF TOXIN PCR NEGATIVE (NEGATIVE)
[2016-11-15] VITALS: BP 143/94; PULSE 96; RESP 18; TEMP 97.6; O2SAT 95
[2016-11-15] MEDS: PIPERACIL-TAZO 3.375 GM PREMIX 50 ML IV SCH ×5 (00:48→23:43)
[2016-11-15] MEDS: DIAZEPAM 10 MG TAB PO PRN (00:48)
[2016-11-15 04:00] VITALS: BP 132/78; PULSE 94; RESP 19; TEMP 98.4; O2SAT 100
[2016-11-15] MEDS: INSULIN ASPART SUPPLEMENTAL SCALE SQ SCH ×4 (05:52→22:33)
[2016-11-15 06:08] LABS: HEMATOCRIT 23.7 % (39.0-51.0); MEAN CELL VOLUME 74.9 FL (80.0-100.0); MEAN CORPUSCULAR HEMOGLOBIN 26.8 PG (27.0-34.0); MEAN CORPUSCULAR HGB CONC 35.7 % (32.0-36.0); RED BLOOD COUNT 3.17 MIL/MM3 (4.50-5.90); RED CELL DISTRIBUTION WIDTH 13.8 % (11.6-17.2); WHITE BLOOD COUNT 0.1 TH/MM3 (4.0-11.0)
[2016-11-15 06:19] LABS: HEMO FLAGS AUTO DIFF
[2016-11-15 06:21] LABS: PLATELET COUNT 8 TH/MM3 (150-450)
[2016-11-15 09:00] VITALS: BP 119/87; PULSE 89; RESP 18; TEMP 99.6; O2SAT 99
[2016-11-15 09:25] LABS: BANDS 10 % (0-6); PLATELET ESTIMATE SMEAR RARE (NORMAL); POLYS (SEG NEUTROPHILS) 35 % (16-70); WBC DIFF SAMPLE 20
[2016-11-15 09:26] LABS: PLATELET MORPHOLOGY NORMAL (NORMAL); SCAN/DIFF FINAL DIFF MANUAL
[2016-11-15] MEDS: POTASSIUM CHLORIDE 10 MEQ CAP PO SCH ×4 (10:58→21:00)
[2016-11-15] MEDS: ACETAMINOPHEN 325 MG TAB PO PRN (10:58)
[2016-11-15] MEDS: SERTRALINE HCL 50 MG TAB PO SCH (10:58)
[2016-11-15] MEDS: predniSONE 10 MG TAB PO SCH (10:58)
[2016-11-15] MEDS: diphenhydrAMINE HCL 25 MG CAP PO PRN (10:58)
[2016-11-15] MEDS: SODIUM CHLORIDE 0.9% FLUSH 10 ML FLUSH IVF SCH (10:58)
[2016-11-15] MEDS: LOPERAMIDE HCL 2 MG CAP PO PRN (11:08)
[2016-11-15] MEDS: DIAZEPAM 5 MG TAB PO PRN (11:10)
--- NOTE | 2016-11-15 11:20 | PD.ONC.PN ---
Subjective Subjective Remarks Afebrile overnight. Patient still having loose stool, but no watery diarrhea. He had a frontal headache this morning which improved after eating. last night while lying in bed he had some sternal chest pain for an unspecified length of time. Denies associated symptoms such as shortness of breath or sweating. He says at some point he just noticed the chest pain was gone. Objective Data Date Time Temp Pulse Resp B/P Pulse Ox O2 Delivery O2 Flow Rate FiO2 11/15/16 09:00 99.6 89 18 119/87 99 11/15/16 04:00 98.4 94 19 132/78 100 11/15/16 00:00 97.6 96 18 143/94 95 11/14/16 22:22 18 11/14/16 20:00 97.0 94 18 101/66 95 11/14/16 18:30 97.9 16 16 101/72 98 11/14/16 17:44 97.7 93 16 95/65 96 11/14/16 16:00 98.5 93 16 121/73 95 11/14/16 12:00 96.7 82 17 118/81 100 11/15/16 11/15/16 11/15/16 07:00 15:00 23:00 Intake Total 60 ml Balance 60 ml Result Diagram: 11/15/16 0535 11/14/16 1157 Laboratory Results Laboratory Tests Test 11/14/16 11/14/16 11/14/16 11/15/16 11:57 14:15 14:48 05:35 White Blood Count 0.1 TH/MM3 0.1 TH/MM3 Red Blood Count 2.61 MIL/MM3 3.17 MIL/MM3 Hemoglobin 6.9 GM/DL 8.5 GM/DL Hematocrit 19.0 % 23.7 % Mean Corpuscular Volume 72.7 FL 74.9 FL Mean Corpuscular Hemoglobin 26.5 PG 26.8 PG Mean Corpuscular Hemoglobin 36.5 % 35.7 % Concent Red Cell Distribution Width 13.1 % 13.8 % Platelet Count 10 TH/MM3 8 TH/MM3 Mean Platelet Volume 7.3 FL 7.4 FL Neutrophils (%) (Auto) % % Lymphocytes (%) (Auto) % % Monocytes (%) (Auto) % % Eosinophils (%) (Auto) % % Basophils (%) (Auto) % % Neutrophils # (Auto) TH/MM3 TH/MM3 Lymphocytes # (Auto) TH/MM3 TH/MM3 Monocytes # (Auto) TH/MM3 TH/MM3 Eosinophils # (Auto) TH/MM3 TH/MM3 Basophils # (Auto) TH/MM3 TH/MM3 CBC Comment AUTO DIFF AUTO DIFF Differential Total Cells 10 20 Counted Neutrophils % (Manual) 30 % 35 % Band Neutrophils % 10 % 10 % Lymphocytes % 10 % 50 % Monocytes % 50 % 5 % Neutrophils # (Manual) 0.0 TH/MM3 0.0 TH/MM3 Differential Comment FINAL DIFF FINAL DIFF MANUAL MANUAL Platelet Estimate RARE RARE Platelet Morphology Comment NORMAL NORMAL Sodium Level 136 MEQ/L Potassium Level 3.3 MEQ/L Chloride Level 94 MEQ/L Carbon Dioxide Level 36.8 MEQ/L Anion Gap 5 MEQ/L Blood Urea Nitrogen 20 MG/DL Creatinine 1.03 MG/DL Estimat Glomerular Filtration 77 ML/MIN Rate Random Glucose 166 MG/DL Calcium Level 9.9 MG/DL Total Bilirubin 1.0 MG/DL Aspartate Amino Transf 13 U/L (AST/SGOT) Alanine Aminotransferase 20 U/L (ALT/SGPT) Alkaline Phosphatase 77 U/L Total Protein 6.5 GM/DL Albumin 2.9 GM/DL Blood Type O POSITIVE Antibody Screen NEGATIVE Crossmatch Irradiated/Leukocyte-Reduced RBC Blood Bank Comment Stool C. difficile Toxin (PCR) NEGATIVE Stl C. difficile Toxin PRESUMPTIVE Epiderm 027 NEGATIVE Test 11/15/16 06:45 Blood Bank Comment Culture Results Microbiology Date/Time Procedure Status Source Growth 11/13/16 01:00 Aerobic Blood Culture - Preliminary Resulted Blood Peripheral NO GROWTH IN 2 DAYS 11/13/16 01:00 Anaerobic Blood Culture - Preliminary Resulted Blood Peripheral NO GROWTH IN 2 DAYS Administered Medications Medications (Trade) Dose Ordered Sig/Génesis Route PRN Reason Start Time Stop Time Status Last Admin Dose Admin Acetaminophen (Tylenol) 650 mg Q4H PRN PO TEMP> 100.5F 09/25/16 08:45 11/12/16 23:31 Heparin Sodium (Porcine) (Heparin Central Flush) 500 units UNSCH IVF 09/25/16 08:45 10/30/16 20:03 Sodium Chloride (NS Flush) 5 ml UNSCH PRN IVF SEE PROTOCOL 09/25/16 08:45 11/12/16 07:02 Heparin Sodium (Porcine) (Heparin Central Flush) 250 units UNSCH PRN IVF SEE PROTOCOL 09/25/16 08:45 11/02/16 17:43 Sertraline HCl (Zoloft) 50 mg DAILY PO 09/26/16 09:00 11/15/16 10:58 Alteplase, Recombinant 2 mg 2 mg UNSCH PRN IVF SEE LABEL COMMENTS 09/25/16 10:15 10/10/16 09:09 Ondansetron HCl/ Dextrose (Zofran Inj/D5W Inj) 54 ml @ 216 mls/hr Q8H PRN IV PUSH NAUSEA OR VOMITING 09/25/16 10:30 11/13/16 23:59 Docusate Sodium (Colace) 100 mg TID PO 09/25/16 18:00 Hold 10/19/16 13:32 Atenolol (Tenormin) 100 mg HS PO 10/14/16 21:00 Hold 11/13/16 20:36 Amlodipine Besylate (Norvasc) 5 mg DAILY PO 10/15/16 09:00 Hold 11/13/16 10:25 Diazepam (Valium) 5 mg Q12H PRN PO MILD ANXIETY 10/20/16 11:15 11/15/16 11:10 Diazepam (Valium) 10 mg HS PRN PO INSOMNIA 10/21/16 08:30 11/15/16 00:48 Loperamide HCl (Imodium) 2 mg UNSCH PRN PO DIARRHEA 10/22/16 09:00 11/15/16 11:08 Lisinopril (Prinivil) 10 mg DAILY PO 10/26/16 09:00 Hold 11/13/16 10:26 Metoclopramide HCl (Reglan) 5 mg Q8H PRN PO NAUSEA 10/27/16 07:15 10/27/16 07:25 Sodium Chloride (NS Flush) DAILY IVF 11/04/16 09:00 11/15/16 10:58 Heparin Sodium (Porcine) (Heparin Central Flush) DAILY IV FLUSH 11/04/16 09:00 11/05/16 14:23 Sodium Chloride (NS Flush) UNSCH PRN IVF SEE PROTOCOL 11/03/16 17:15 11/12/16 04:29 Sodium Chloride (NS Flush) UNSCH PRN IVF SEE PROTOCOL 11/03/16 17:15 11/11/16 05:12 Acetaminophen (Tylenol) 650 mg Q4H PRN PO SEE LABEL COMMENTS 11/04/16 15:45 11/15/16 10:58 Diphenhydramine HCl 25 mg 25 mg Q4H PRN PO SEE LABEL COMMENTS 11/04/16 15:45 11/15/16 10:58 Piperacillin Sod/ Tazobactam Sod (Zosyn 3.375 Gm Premix) 50 ml @ 100 mls/hr Q6H IV 11/08/16 23:00 11/15/16 10:59 Simethicone (Phazyme Chew) 125 mg Q8HR PRN PO GAS RETENTION 11/11/16 17:30 11/11/16 18:06 Oxycodone HCl (Roxicodone) 10 mg Q4H PRN PO pain 1-10 11/12/16 20:00 11/14/16 21:22 Prednisone (Deltasone) 10 mg DAILY PO 11/13/16 14:00 11/15/16 10:58 Potassium Chloride (KCl) 10 meq QID PO 11/14/16 14:45 11/17/16 14:44 11/15/16 10:58 Objective Remarks GENERAL: Middle aged male, lying in bed in nad. SKIN: Warm and dry. HEAD: Normocephalic. EYES: No injection or drainage. NECK: Supple, trachea midline. CARDIOVASCULAR: Regular rate and rhythm RESPIRATORY: Breath sounds equal bilaterally. No accessory muscle use. GASTROINTESTINAL: Abdomen soft, non-tender, nondistended. EXTREMITIES: No cyanosis NEUROLOGICAL: No obvious focal deficit. Awake, alert, and oriented x3. Assessment/Plan Assessment 46 y/o male admitted for salvage chemotherapy for relapsed AML, now in remission , waiting on count recovery Plan 1. give 1 unit platelets. 2. check ECG/troponin for cp--more likely musculoskeletal. 3. continue to wean prednisone 4. resume atenolol tonight. continue to hold Lisinopril and Amlodipine Attending Statement The exam, history, and the medical decision-making described in the above note were completed with the assistance of the mid-level provider. I reviewed and agree with the findings presented. I attest that I had a [id number] encounter with the patient on the same day, and personally performed and documented my assessment and findings in the medical record. doing well. no fever or bleeding. had transient left chest pain sharp and now gone. will receive platelets today. Janet Holm November 15, 2016 11:20 Placido Marie MD November 15, 2016 14:12 5: Platelet transfusion today. Rash improving with steroids. 11/07 Still has rash. D/w Dr Corona. She change the a/b D/W BMT team at [facility]. He is now back in remission. Monitor cbc 11/06 No TX today. on steroid for rash. d/w Dr Corona.Core BM bx = no residual leukemia. He is in remission. d/w pt. He is very happy. will call BMT team at [facility]. 11/05 No TX today. Has rash. ?meds. ID to follow. Start steroid for rash. Flow cyto on BM shows <1% Blasts. Await core bx report. Molecular test results are pending. d/w pt and . Both are very happy. d/w BMT coordinator at [facility]. 11/04: D40/21. bone marrow biopsy and aspirate at bedside. continue abx. patient has red raised rash on flanks, none on face or chest. give 2 units pRBC, 1 unit platelet today. 11/03: D39/20. fever overnight. BC no growth. will consult IR to remove port. 11/02: D38/19. fever overnight. await blood cultures. give 1 unit pRBC. will inform ID of additional fever spike. 11/01: D37/18. spiked fever of 100.[address] Corona, ID advised to stop Zosyn, start Meropenem and continue Vanco. 10/31: D36/17. tolerating Vanco and Zosyn. rash improving. tired of being in hospital. 1 unit platelets and 1 unit pRBC today. plan for bone marrow biopsy on Monday 10/30 Prbc and plat today. No more fevers Tolerating vanco well so far.Clinically looks much better then yesterday. Extensive d/w pt and . 10/29 PRBC and plat todayD/W Dr corona regarding antibiotics. 10/28: D33/14: afebrile overnight. currently on Zosyn. persistent rash. has not been able to take exjade d/t nausea. will check ferritin 10/27: D32/13. febrile to 101.3 likely due to refusing Dapto and Micafungin last night. + rash on face and trunk. no transfusion today. 10/26: D31/12: No new fevers. Continue IV Abx per ID. Pt feeling overall better. Diarrhea is improved. Await count recovery. No transfusion today. 10/25: D30/11: 2 units irradiated platelets today. Continue current IV Abx per ID. Preliminary micro ++gram positive rods 10/24: D29/10. no transfusion. abx per ID. monitor blood pressure with increased Lisinopril. 10/23: D28/9. no transfusion. continue antibiotics. will increase Lisinopril to 20mg PO daily. 10/22: D27/8; 1 unit platelets. continue abx per ID 10/21: D26/7: 1 unit pRBC. CXR 10/20: D25/6. 1 unit platelets and pRBC. stop IVF. wean Adderall 10/19: D24/5 1 unit platelets. last day of chemotherapy 10/18: D23/4. give 2 units pRBC today. monitor for fever 10/17: D22/3. continue CLAG-M. no fever. 10/16: D21/2 Pt tolerated chemo well yesterday. No fevers. Counts OK. No headache. Continue chemo. Monitor counts, fevers. 10/15 D20/ start second cycle of CLAG-M today. D/W side effects and increase morbidity and mortality with the second cycle. He agreed . I will be OOT . Dr Newell will see him till thursday. 10/14: D19. patient started to receive Clarabine but the pump malfunction causing the chemo to spill on the floor. the chemo is being STAT ordered again and will arrive tomorrow morning. 10/13: bone marrow flow shows 70% blasts. d/w patient, repeating induction with CLAG-M chemotherapy or enrolling in a clinical trial. patient would like to try a second induction with CLAG-M. will give Neupogen today and start tomorrow. 10/12: Mildly tachycardic today in the 110's, but no fever. PRBC x 2 ordered today. EXECUTIVE COORDINATOR replacing potassium per protocol for level of 3.2. Will monitor blood counts, heart rate. Plan for repeat BMB on this upcoming week. 10/11: Spiked a fever this morning to 101.8. Will order blood cultures x 2, check UA. No longer tachycardic. Continue IV Abx. Transfuse 1 unit platelets today. 10/10: afebrile today. tolerating blood and platelet transfusions. will keep in ICU another night as he remains tachycardic. 10/09: bone marrow biopsy today. 1 unit platelets, 2 units pRBC. spiked fever 103F. cefepime started. spoke with ID, who advised me to start Daptomycin and Micafungin. transferred to ICU after becoming tachy in 140s 10/08: day 13. 1 unit platelets. bone marrow biopsy tomorrow. 10/07: flow cytometry results returned showing NPM1 + and FLT3 +. I obtained the original pathology again from to double check and the original FLT3 was NEGATIVE. NPM1 mutation was detected 43.4%, KIT mutation not detected. 46XY 10/06: 2 units pRBC today. plan to do bone marrow biopsy . 10/05: 1 unit platelets today 10/04: D9. no fever. 10/03: D8. no transfusion. monitor for fever 10/02: Will give 1 unit pRBC's, platelets today. Plan for repeat BMB on 10/10. 10/01: Finished chemotherapy yesterday. Tolerated well. 1 unit irradiated PRBC's to be transfused today. Continue to closely monitor blood counts. 09/30: D5. last day of chemotherapy. will give 1 unit platelets. 09/29: D4. continue chemotherapy. no transfusion. 09/28: D3. 09/27: D2 09/26: Start on CLAG-M chemotherapy for relapsed AML. Received Neupogen yesterday. He spiked a fever this afternoon of 101.3. BC, UA, and CXR ordered. Will start pt on Cefepime. Await BC results. --On 09/18 it was noted that he had a white count at 11k and a platelet count of 76k. Blasts were at 38%. He was brought in to the clinic on 09/24 for a bone marrow biopsy. A CBC was done and showed a white count of 63.7, Hgb 12.2, and platelet count was 33K. The blasts were at 73%. Decision was made at that time to admit for salvage chemo. History: 11/04: AML Diagnosis made. 46XY, +NPM1 mutation detected, FLT3 negative-- indicates favorable prognosis. 11/05-11/28: Initial induction with MELL-C and idarubicin (7+3). STAT Leukapheresis due to leukostasis. On D25, repeat bone marrow showed residual leukemia. 12/06-12/27: Re-induction with FLANG chemotherapy. Repeat bone marrow biopsy negative for residual AML. Patient in Complete Remission 01/06-01/10: C1 consolidation chemotherapy with Mell-C. 02/17-02/21: C2 consolidation chemotherapy with MELL-C. 03/25-03/30: C3 consolidation chemotherapy with MELL-C 04/28-05/02: C4 consolidation chemo with MELL-C (2) Fever Status: Acute Plan: --BC + on 10/24 and 10/27; BC no growth on 11/01, 11/02, 11/13 --port removed 11/03. culture showed no growt --ID following --on IV Zosyn (3) Diabetes Status: Acute Plan: --on SSI Novolog medium dose Assessment 46 y/o male admitted for salvage chemotherapy for relapsed AML. Problem Qualifiers (1) Fever: Qualified Code: R50.9 - Fever, unspecified fever cause (2) Diabetes: Qualified Code: E11.9 - Type 2 diabetes mellitus without complication, without long-term current use of insulin Janet Holm November 15, 2016 11:20
[2016-11-15 12:00] VITALS: BP 106/71; PULSE 101; RESP 16; TEMP 98.5; O2SAT 98
--- NOTE | 2016-11-15 13:44 | EKG ---
Date Performed: 11/15/2016 Time Performed: 11:19:27 PTAGE: 46 years EKG: SINUS TACHYCARDIA POSSIBLE RIGHT VENTRICULAR CONDUCTION DELAY Since previous tracing, no si gnificant change noted ABNORMAL RHYTHM ECG PREVIOUS TRACING : 04/14/2016 17.25 DOCTOR: Jennifer Valles Interpretating Date/Time 11/15/2016 13:44:02
[2016-11-15 16:00] VITALS: BP 152/99; PULSE 84; RESP 18; TEMP 96.7; O2SAT 97
[2016-11-15 16:54] LABS: ANION GAP 6 MEQ/L (5-15); BICARBONATE 36.7 MEQ/L (21.0-32.0); BLOOD UREA NITROGEN 22 MG/DL (7-18); CHLORIDE 94 MEQ/L (98-107); GLOMERULAR FILTRATION RATE 73 ML/MIN (>89); POTASSIUM 3.8 MEQ/L (3.5-5.1); SODIUM (NA) 137 MEQ/L (136-145)
[2016-11-15 20:00] VITALS: BP 159/101; PULSE 87; RESP 18; TEMP 96.3; O2SAT 98
[2016-11-15 21:07] LABS: MEAN CORPUSCULAR HGB CONC 36.1 % (32.0-36.0)
[2016-11-15] MEDS: ATENOLOL 100 MG TAB PO SCH (22:18)
[2016-11-16] VITALS: BP 163/97; PULSE 89; RESP 19; TEMP 97; O2SAT 97
[2016-11-16 04:00] VITALS: BP 144/90; PULSE 93; RESP 19; TEMP 97.6; O2SAT 96
[2016-11-16] MEDS: PIPERACIL-TAZO 3.375 GM PREMIX 50 ML IV SCH ×4 (05:37→21:59)
[2016-11-16 06:01] LABS: HEMATOCRIT 23.4 % (39.0-51.0); MEAN CELL VOLUME 74.4 FL (80.0-100.0); MEAN CORPUSCULAR HEMOGLOBIN 26.9 PG (27.0-34.0); RED BLOOD COUNT 3.14 MIL/MM3 (4.50-5.90); RED CELL DISTRIBUTION WIDTH 13.7 % (11.6-17.2); WHITE BLOOD COUNT 0.1 TH/MM3 (4.0-11.0)
[2016-11-16 06:15] LABS: HEMO FLAGS AUTO DIFF
[2016-11-16 06:20] LABS: PLATELET COUNT 10 TH/MM3 (150-450)
[2016-11-16 06:25] LABS: BICARBONATE 37.5 MEQ/L (21.0-32.0); POTASSIUM 3.4 MEQ/L (3.5-5.1)
[2016-11-16] MEDS: INSULIN ASPART SUPPLEMENTAL SCALE SQ SCH ×4 (06:52→22:12)
[2016-11-16] MEDS: SODIUM CHLORIDE 0.9% FLUSH 10 ML FLUSH IVF SCH (09:00)
[2016-11-16 09:22] LABS: BANDS 20 % (0-6); NEUTROPHIL # MANUAL DIFF 0.1 TH/MM3 (1.8-7.7); POLYS (SEG NEUTROPHILS) 33 % (16-70); WBC DIFF SAMPLE 15
[2016-11-16 09:25] LABS: PLATELET ESTIMATE SMEAR RARE (NORMAL); PLATELET MORPHOLOGY NORMAL (NORMAL); SCAN/DIFF FINAL DIFF MANUAL
[2016-11-16 10:00] VITALS: BP 143/90; PULSE 93; RESP 18; TEMP 99.2; O2SAT 96
--- NOTE | 2016-11-16 10:23 | PD.ONC.PN ---
Subjective Subjective Remarks Afebrile overnight. Patient worried about his blood pressure being elevated. He still has some low back pain, aching and constant, improved with valium and oxycodone. He wants to get his platelet transfusion without benadryl as the benadryl gives him RLS. Objective Data Date Time Temp Pulse Resp B/P Pulse Ox O2 Delivery O2 Flow Rate FiO2 11/16/16 10:00 99.2 93 18 143/90 96 11/16/16 04:00 97.6 93 19 144/90 96 11/16/16 00:00 97.0 89 19 163/97 97 11/15/16 20:00 96.3 87 18 159/101 98 11/15/16 16:00 96.7 84 18 152/99 97 11/15/16 12:00 98.5 101 16 106/71 98 11/16/16 11/16/16 11/16/16 07:00 15:00 23:00 Intake Total 480 ml Balance 480 ml Result Diagram: 11/16/16 0530 11/16/16 0530 Laboratory Results Laboratory Tests Test 11/15/16 11/16/16 11/16/16 15:44 05:30 06:22 Sodium Level 137 MEQ/L 137 MEQ/L Potassium Level 3.8 MEQ/L 3.4 MEQ/L Chloride Level 94 MEQ/L 93 MEQ/L Carbon Dioxide Level 36.7 MEQ/L 37.5 MEQ/L Anion Gap 6 MEQ/L 7 MEQ/L Blood Urea Nitrogen 22 MG/DL 19 MG/DL Creatinine 1.08 MG/DL 1.03 MG/DL Estimat Glomerular Filtration 73 ML/MIN 77 ML/MIN Rate Random Glucose 223 MG/DL 170 MG/DL Calcium Level 9.8 MG/DL 9.6 MG/DL Troponin I LESS THAN 0.02 NG/ML White Blood Count 0.1 TH/MM3 Red Blood Count 3.14 MIL/MM3 Hemoglobin 8.4 GM/DL Hematocrit 23.4 % Mean Corpuscular Volume 74.4 FL Mean Corpuscular Hemoglobin 26.9 PG Mean Corpuscular Hemoglobin 36.1 % Concent Red Cell Distribution Width 13.7 % Platelet Count 10 TH/MM3 Mean Platelet Volume 7.7 FL Neutrophils (%) (Auto) % Lymphocytes (%) (Auto) % Monocytes (%) (Auto) % Eosinophils (%) (Auto) % Basophils (%) (Auto) % Neutrophils # (Auto) TH/MM3 Lymphocytes # (Auto) TH/MM3 Monocytes # (Auto) TH/MM3 Eosinophils # (Auto) TH/MM3 Basophils # (Auto) TH/MM3 CBC Comment AUTO DIFF Differential Total Cells 15 Counted Neutrophils % (Manual) 33 % Band Neutrophils % 20 % Lymphocytes % 33 % Monocytes % 13 % Neutrophils # (Manual) 0.1 TH/MM3 Differential Comment FINAL DIFF MANUAL Platelet Estimate RARE Platelet Morphology Comment NORMAL Blood Bank Comment Administered Medications Medications (Trade) Dose Ordered Sig/Génesis Route PRN Reason Start Time Stop Time Status Last Admin Dose Admin Acetaminophen (Tylenol) 650 mg Q4H PRN PO TEMP> 100.5F 09/25/16 08:45 11/12/16 23:31 Heparin Sodium (Porcine) (Heparin Central Flush) 500 units UNSCH IVF 09/25/16 08:45 10/30/16 20:03 Sodium Chloride (NS Flush) 5 ml UNSCH PRN IVF SEE PROTOCOL 09/25/16 08:45 11/12/16 07:02 Heparin Sodium (Porcine) (Heparin Central Flush) 250 units UNSCH PRN IVF SEE PROTOCOL 09/25/16 08:45 11/02/16 17:43 Sertraline HCl (Zoloft) 50 mg DAILY PO 09/26/16 09:00 11/15/16 10:58 Alteplase, Recombinant 2 mg 2 mg UNSCH PRN IVF SEE LABEL COMMENTS 09/25/16 10:15 10/10/16 09:09 Ondansetron HCl/ Dextrose (Zofran Inj/D5W Inj) 54 ml @ 216 mls/hr Q8H PRN IV PUSH NAUSEA OR VOMITING 09/25/16 10:30 11/13/16 23:59 Docusate Sodium (Colace) 100 mg TID PO 09/25/16 18:00 Hold 10/19/16 13:32 Atenolol (Tenormin) 100 mg HS PO 10/14/16 21:00 11/15/16 22:18 Amlodipine Besylate (Norvasc) 5 mg DAILY PO 10/15/16 09:00 Hold 11/13/16 10:25 Diazepam (Valium) 5 mg Q12H PRN PO MILD ANXIETY 10/20/16 11:15 11/15/16 11:10 Diazepam (Valium) 10 mg HS PRN PO INSOMNIA 10/21/16 08:30 11/15/16 00:48 Loperamide HCl (Imodium) 2 mg UNSCH PRN PO DIARRHEA 10/22/16 09:00 11/15/16 11:08 Lisinopril (Prinivil) 10 mg DAILY PO 10/26/16 09:00 11/13/16 10:26 Metoclopramide HCl (Reglan) 5 mg Q8H PRN PO NAUSEA 10/27/16 07:15 10/27/16 07:25 Sodium Chloride (NS Flush) DAILY IVF 11/04/16 09:00 11/15/16 10:58 Heparin Sodium (Porcine) (Heparin Central Flush) DAILY IV FLUSH 11/04/16 09:00 11/05/16 14:23 Sodium Chloride (NS Flush) UNSCH PRN IVF SEE PROTOCOL 11/03/16 17:15 11/12/16 04:29 Sodium Chloride (NS Flush) UNSCH PRN IVF SEE PROTOCOL 11/03/16 17:15 11/11/16 05:12 Acetaminophen (Tylenol) 650 mg Q4H PRN PO SEE LABEL COMMENTS 11/04/16 15:45 11/15/16 10:58 Diphenhydramine HCl 25 mg 25 mg Q4H PRN PO SEE LABEL COMMENTS 11/04/16 15:45 11/15/16 10:58 Piperacillin Sod/ Tazobactam Sod (Zosyn 3.375 Gm Premix) 50 ml @ 100 mls/hr Q6H IV 11/08/16 23:00 11/16/16 05:37 Simethicone (Phazyme Chew) 125 mg Q8HR PRN PO GAS RETENTION 11/11/16 17:30 11/11/16 18:06 Oxycodone HCl (Roxicodone) 10 mg Q4H PRN PO pain 1-10 11/12/16 20:00 11/15/16 22:20 Potassium Chloride (KCl) 10 meq QID PO 11/14/16 14:45 11/17/16 14:44 11/15/16 18:34 Objective Remarks GENERAL: Middle aged male, supine in bed in nad. SKIN: Warm and dry. HEAD: Normocephalic. EYES: No injection or drainage. NECK: Supple, trachea midline. CARDIOVASCULAR: Regular rate and rhythm RESPIRATORY: Breath sounds equal bilaterally. No accessory muscle use. GASTROINTESTINAL: Abdomen soft, non-tender, nondistended. EXTREMITIES: No cyanosis NEUROLOGICAL: No obvious focal deficit. Awake, alert, and oriented x3. Assessment/Plan Assessment 46 y/o male admitted for salvage chemotherapy for relapsed AML, now in remission , waiting on count recovery Plan 1. give 1 unit platelets today. ok to hold benadryl 2. resume Lisinopril 3. reduce Prednisone to 5mg PO daily Attending Statement The exam, history, and the medical decision-making described in the above note were completed with the assistance of the mid-level provider. I reviewed and agree with the findings presented. I attest that I had a [id number] encounter with the patient on the same day, and personally performed and documented my assessment and findings in the medical record. remains stable in spite of severe cytopenias. have adjusted BP Meds and for platelets today. reduced prednisone to 5 mg a day. Janet Holm November 16, 2016 10:23 Placido Marie MD November 16, 2016 11:28
[2016-11-16] MEDS: ACETAMINOPHEN 325 MG TAB PO PRN (10:28)
[2016-11-16] MEDS: LOPERAMIDE HCL 2 MG CAP PO PRN (10:28)
[2016-11-16] MEDS: SERTRALINE HCL 50 MG TAB PO SCH (10:28)
[2016-11-16] MEDS: POTASSIUM CHLORIDE 10 MEQ CAP PO SCH ×4 (10:28→21:58)
[2016-11-16] MEDS ORDERED: LISINOPRIL 10 MG TAB PO ONE (11:30)
[2016-11-16 14:15] VITALS: BP 103/70; PULSE 78; RESP 20; TEMP 97.8; O2SAT 97
[2016-11-16] MEDS: predniSONE 5 MG TAB PO SCH (14:58)
[2016-11-16 18:30] VITALS: BP 146/96; PULSE 85; RESP 18; TEMP 95.2; O2SAT 96
[2016-11-16 20:00] VITALS: BP 165/97; PULSE 88; RESP 17; TEMP 96; O2SAT 98
[2016-11-16] MEDS: ATENOLOL 100 MG TAB PO SCH (21:58)
[2016-11-16] MEDS: DIAZEPAM 10 MG TAB PO PRN (21:59)
[2016-11-17] VITALS (7 sets, daily range): BP systolic 102–153; BP diastolic 72–90; PULSE 82–96; RESP 16–20; TEMP 97.7–98.6; O2SAT 94–99
[2016-11-17] MEDS: PIPERACIL-TAZO 3.375 GM PREMIX 50 ML IV SCH ×4 (05:51→22:23)
[2016-11-17] MEDS: INSULIN ASPART SUPPLEMENTAL SCALE SQ SCH ×4 (05:52→22:32)
[2016-11-17 06:50] LABS: HEMATOCRIT 21.8 % (39.0-51.0); MEAN CELL VOLUME 75.1 FL (80.0-100.0); MEAN CORPUSCULAR HEMOGLOBIN 26.7 PG (27.0-34.0); MEAN CORPUSCULAR HGB CONC 35.5 % (32.0-36.0); RED CELL DISTRIBUTION WIDTH 13.3 % (11.6-17.2); WHITE BLOOD COUNT 0.2 TH/MM3 (4.0-11.0)
[2016-11-17 06:56] LABS: HEMO FLAGS AUTO DIFF
[2016-11-17 06:58] LABS: PLATELET COUNT 19 TH/MM3 (150-450)
[2016-11-17 07:24] LABS: BICARBONATE 35.9 MEQ/L (21.0-32.0); POTASSIUM 3.3 MEQ/L (3.5-5.1)
[2016-11-17 07:53] LABS: BANDS 10 % (0-6); NEUTROPHIL # MANUAL DIFF 0.1 TH/MM3 (1.8-7.7); PLATELET ESTIMATE SMEAR RARE (NORMAL); PLATELET MORPHOLOGY NORMAL (NORMAL); POLYS (SEG NEUTROPHILS) 50 % (16-70); SCAN/DIFF FINAL DIFF MANUAL; WBC DIFF SAMPLE 20
[2016-11-17] MEDS ORDERED: SODIUM CHLOR 0.9% 250 ML INJ 250 ML IV ONE (08:30)
[2016-11-17] MEDS ORDERED: ACETAMINOPHEN 325 MG TAB PO PRN (08:30)
[2016-11-17] MEDS: SERTRALINE HCL 50 MG TAB PO SCH (10:00)
[2016-11-17] MEDS: predniSONE 5 MG TAB PO SCH (10:00)
[2016-11-17] MEDS: POTASSIUM CHLORIDE 10 MEQ CAP PO SCH ×4 (10:00→22:22)
[2016-11-17] MEDS: LISINOPRIL 10 MG TAB PO SCH (10:00)
[2016-11-17] MEDS: amLODIPine BESYLATE 5 MG TAB PO SCH (10:00)
[2016-11-17] MEDS: LOPERAMIDE HCL 2 MG CAP PO PRN (10:02)
[2016-11-17] MEDS: SODIUM CHLORIDE 0.9% FLUSH 10 ML FLUSH IVF SCH (10:03)
--- NOTE | 2016-11-17 11:27 | PD.ONC.PN ---
Subjective Subjective Remarks Afebrile overnight. Patient tells me he has a sore throat today, and a lump when he swallows. He is still eating and drinking without problems. No diarrhea but he does have occasional loose bowel movements. Objective Data Date Time Temp Pulse Resp B/P Pulse Ox O2 Delivery O2 Flow Rate FiO2 11/17/16 04:00 98.5 86 17 120/76 99 11/17/16 00:00 98.6 90 16 153/90 95 11/16/16 20:00 96.0 88 17 165/97 98 11/16/16 18:30 95.2 85 18 146/96 96 11/16/16 14:15 97.8 78 20 103/70 97 11/17/16 11/17/16 11/17/16 07:00 15:00 23:00 Intake Total 240 ml Balance 240 ml Result Diagram: 11/17/16 0545 11/17/16 0545 Laboratory Results Laboratory Tests Test 11/17/16 05:45 White Blood Count 0.2 TH/MM3 Red Blood Count 2.90 MIL/MM3 Hemoglobin 7.7 GM/DL Hematocrit 21.8 % Mean Corpuscular Volume 75.1 FL Mean Corpuscular Hemoglobin 26.7 PG Mean Corpuscular Hemoglobin 35.5 % Concent Red Cell Distribution Width 13.3 % Platelet Count 19 TH/MM3 Mean Platelet Volume 7.2 FL Neutrophils (%) (Auto) % Lymphocytes (%) (Auto) % Monocytes (%) (Auto) % Eosinophils (%) (Auto) % Basophils (%) (Auto) % Neutrophils # (Auto) TH/MM3 Lymphocytes # (Auto) TH/MM3 Monocytes # (Auto) TH/MM3 Eosinophils # (Auto) TH/MM3 Basophils # (Auto) TH/MM3 CBC Comment AUTO DIFF Differential Total Cells 20 Counted Neutrophils % (Manual) 50 % Band Neutrophils % 10 % Lymphocytes % 20 % Monocytes % 20 % Neutrophils # (Manual) 0.1 TH/MM3 Differential Comment FINAL DIFF MANUAL Platelet Estimate RARE Platelet Morphology Comment NORMAL Sodium Level 138 MEQ/L Potassium Level 3.3 MEQ/L Chloride Level 96 MEQ/L Carbon Dioxide Level 35.9 MEQ/L Anion Gap 6 MEQ/L Blood Urea Nitrogen 19 MG/DL Creatinine 0.95 MG/DL Estimat Glomerular Filtration 85 ML/MIN Rate Random Glucose 133 MG/DL Calcium Level 9.9 MG/DL Administered Medications Medications (Trade) Dose Ordered Sig/Génesis Route PRN Reason Start Time Stop Time Status Last Admin Dose Admin Acetaminophen (Tylenol) 650 mg Q4H PRN PO TEMP> 100.5F 09/25/16 08:45 11/16/16 10:28 Heparin Sodium (Porcine) (Heparin Central Flush) 500 units UNSCH IVF 09/25/16 08:45 10/30/16 20:03 Sodium Chloride (NS Flush) 5 ml UNSCH PRN IVF SEE PROTOCOL 09/25/16 08:45 11/12/16 07:02 Heparin Sodium (Porcine) (Heparin Central Flush) 250 units UNSCH PRN IVF SEE PROTOCOL 09/25/16 08:45 11/02/16 17:43 Sertraline HCl (Zoloft) 50 mg DAILY PO 09/26/16 09:00 11/17/16 10:00 Alteplase, Recombinant 2 mg 2 mg UNSCH PRN IVF SEE LABEL COMMENTS 09/25/16 10:15 10/10/16 09:09 Ondansetron HCl/ Dextrose (Zofran Inj/D5W Inj) 54 ml @ 216 mls/hr Q8H PRN IV PUSH NAUSEA OR VOMITING 09/25/16 10:30 11/13/16 23:59 Docusate Sodium (Colace) 100 mg TID PO 09/25/16 18:00 Hold 10/19/16 13:32 Atenolol (Tenormin) 100 mg HS PO 10/14/16 21:00 11/16/16 21:58 Amlodipine Besylate (Norvasc) 5 mg DAILY PO 10/15/16 09:00 11/17/16 10:00 Diazepam (Valium) 5 mg Q12H PRN PO MILD ANXIETY 10/20/16 11:15 11/15/16 11:10 Diazepam (Valium) 10 mg HS PRN PO INSOMNIA 10/21/16 08:30 11/16/16 21:59 Loperamide HCl (Imodium) 2 mg UNSCH PRN PO DIARRHEA 10/22/16 09:00 11/17/16 10:02 Lisinopril (Prinivil) 10 mg DAILY PO 10/26/16 09:00 11/17/16 10:00 Metoclopramide HCl (Reglan) 5 mg Q8H PRN PO NAUSEA 10/27/16 07:15 10/27/16 07:25 Sodium Chloride (NS Flush) DAILY IVF 11/04/16 09:00 11/17/16 10:03 Heparin Sodium (Porcine) (Heparin Central Flush) DAILY IV FLUSH 11/04/16 09:00 11/17/16 11:08 Sodium Chloride (NS Flush) UNSCH PRN IVF SEE PROTOCOL 11/03/16 17:15 11/12/16 04:29 Sodium Chloride (NS Flush) UNSCH PRN IVF SEE PROTOCOL 11/03/16 17:15 11/11/16 05:12 Acetaminophen (Tylenol) 650 mg Q4H PRN PO SEE LABEL COMMENTS 11/04/16 15:45 11/15/16 10:58 Diphenhydramine HCl 25 mg 25 mg Q4H PRN PO SEE LABEL COMMENTS 11/04/16 15:45 11/15/16 10:58 Piperacillin Sod/ Tazobactam Sod (Zosyn 3.375 Gm Premix) 50 ml @ 100 mls/hr Q6H IV 11/08/16 23:00 11/17/16 10:00 Simethicone (Phazyme Chew) 125 mg Q8HR PRN PO GAS RETENTION 11/11/16 17:30 11/11/16 18:06 Oxycodone HCl (Roxicodone) 10 mg Q4H PRN PO pain 1-10 11/12/16 20:00 11/16/16 21:58 Potassium Chloride (KCl) 10 meq QID PO 11/14/16 14:45 11/17/16 14:44 11/17/16 10:00 Prednisone (Deltasone) 5 mg DAILY PO 11/16/16 14:00 11/17/16 10:00 Objective Remarks GENERAL: Middle aged male, sitting up in bed in nad SKIN: Warm and dry. HEAD: Normocephalic. EYES: No scleral icterus. No injection or drainage. MOUTH: + thrush NECK: Supple, trachea midline. CARDIOVASCULAR: Regular rate and rhythm RESPIRATORY: Breath sounds equal bilaterally. No accessory muscle use. GASTROINTESTINAL: Abdomen soft, non-tender, nondistended. EXTREMITIES: No cyanosis NEUROLOGICAL: No obvious focal deficit. Awake, alert, and oriented x3. Assessment/Plan Problem List: (1) AML (acute myeloid leukemia) Status: Acute Plan: 11/17/16: give 1 unit pRBC. continue to wean Prednisone (currently 5mg PO daily). start Diflucan and Magic mouthwash for thrush. continue Zosyn. await marrow recovery. 11/15/16: give 1 unit platelets. check ECG/troponin for cp--more likely musculoskeletal. continue to wean prednisone 11/14/16: give 2 units pRBC 1 unit platelets. continue abx. continue Prednisone at 10mg today. continue to wean as tolerated. 11/13/16: No transfusion today. Spoke with Dr Galarza re: fever spike overnight. Plan to check a stool for Cdiff as he has been having increased diarrhea. Will put him back on Vanco if persistent fevers. Continue to wean steroids. Continue Zosyn. 11/12/16: Will give platelets today for level of 17K. Continue to wean steroids. Flank and back pain likely related to bone marrow activity. Thoracic X-ray showed osteopenia and degenerative changes. 11/11/16: Remains afebrile. Will transfuse 1 unit platelets today. Prednisone cut to 20mg po daily. Encouraged pt to find activities to do to pass the time. 11/10/16 PRBC today. WBC still low. On prednisone for rash. Rash has resolved. No more fevers. 11/09: Change SS to medium dosing while on steroids. Rash improving. Will change to po prednisone. 11/08: Platelet transfusion today. Rash improving with steroids. 11/07 Still has rash. D/w Dr Galarza. She change the a/b D/W BMT team at [facility]. He is now back in remission. Monitor cbc 10/15 D20 start second cycle of CLAG-M today. D/W side effects and increase morbidity and mortality with the second cycle. He agreed . I will be OOT . Dr Newell will see him till thursday. 10/14: D19. patient started to receive Clarabine but the pump malfunction causing the chemo to spill on the floor. the chemo is being STAT ordered again and will arrive tomorrow morning. 10/13: bone marrow flow shows 70% blasts. d/w patient, repeating induction with CLAG-M chemotherapy or enrolling in a clinical trial. patient would like to try a second induction with CLAG-M. will give Neupogen today and start tomorrow. 10/12: Mildly tachycardic today in the 110's, but no fever. PRBC x 2 ordered today. 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 Will monitor blood counts, heart rate. Plan for repeat BMB on this upcoming week. 10/09: bone marrow biopsy today. 1 unit platelets, 2 units pRBC. spiked fever 103F. cefepime started. spoke with ID, who advised me to start Daptomycin and Micafungin. transferred to ICU after becoming tachy in 140s 09/26: Start on CLAG-M chemotherapy for relapsed AML. Received Neupogen yesterday. He spiked a fever this afternoon of 101.3. BC, UA, and CXR ordered. Will start pt on Cefepime. Await BC results. --On 09/18 it was noted that he had a white count at 11k and a platelet count of 76k. Blasts were at 38%. He was brought in to the clinic on 09/24 for a bone marrow biopsy. A CBC was done and showed a white count of 63.7, Hgb 12.2, and platelet count was 33K. The blasts were at 73%. Decision was made at that time to admit for salvage chemo. History: 11/04: AML Diagnosis made. 46XY, +NPM1 mutation detected, FLT3 negative-- indicates favorable prognosis. 11/05-11/28: Initial induction with MELL-C and idarubicin (7+3). STAT Leukapheresis due to leukostasis. On D25, repeat bone marrow showed residual leukemia. 12/06-12/27: Re-induction with FLANG chemotherapy. Repeat bone marrow biopsy negative for residual AML. Patient in Complete Remission 01/06-01/10: C1 consolidation chemotherapy with Mell-C. 02/17-02/21: C2 consolidation chemotherapy with MELL-C. 03/25-03/30: C3 consolidation chemotherapy with MELL-C 04/28-05/02: C4 consolidation chemo with MELL-C (2) Fever Status: Acute Plan: --BC + on 10/24 and 10/27; BC no growth on 11/01, 11/02, 11/13 --port removed 11/03. culture showed no growt --ID following --on IV Zosyn + Diflucan (3) Diabetes Status: Acute Plan: --on SSI Novolog medium dose Assessment 46 y/o male admitted for salvage chemotherapy for relapsed AML, now in remission , waiting on count recovery Attending Statement DEnies any CARLSON Rash has resolved. eating little better. PRBC await BM recovery. The exam, history, and the medical decision-making described in the above note were completed with the assistance of the mid-level provider. I reviewed and agree with the findings presented. I attest that I had a [id number] encounter with the patient on the same day, and personally performed and documented my assessment and findings in the medical record. Problem Qualifiers (1) Fever: Qualified Code: R50.9 - Fever, unspecified fever cause (2) Diabetes: Qualified Code: E11.9 - Type 2 diabetes mellitus without complication, without long-term current use of insulin Janet Holm November 17, 2016 11:27 Alexandra Olea MD November 17, 2016 23:19 09/26: Start on CLAG-M chemotherapy for relapsed AML. Received Neupogen yesterday. He spiked a fever this afternoon of 101.3. BC, UA, and CXR ordered. Will start pt on Cefepime. Await BC results. --On 09/18 it was noted that he had a white count at 11k and a platelet count of 76k. Blasts were at 38%. He was brought in to the clinic on 09/24 for a bone marrow biopsy. A CBC was done and showed a white count of 63.7, Hgb 12.2, and platelet count was 33K. The blasts were at 73%. Decision was made at that time to admit for salvage chemo. History: 11/04: AML Diagnosis made. 46XY, +NPM1 mutation detected, FLT3 negative-- indicates favorable prognosis. 11/05-11/28: Initial induction with MELL-C and idarubicin (7+3). STAT Leukapheresis due to leukostasis. On D25, repeat bone marrow showed residual leukemia. 12/06-12/27: Re-induction with FLANG chemotherapy. Repeat bone marrow biopsy negative for residual AML. Patient in Complete Remission 01/06-01/10: C1 consolidation chemotherapy with Mell-C. 02/17-02/21: C2 consolidation chemotherapy with MELL-C. 03/25-03/30: C3 consolidation chemotherapy with MELL-C 04/28-05/02: C4 consolidation chemo with MELL-C (2) Fever Status: Acute Plan: --BC + on 10/24 and 10/27; BC no growth on 11/01, 11/02, 11/13 --port removed 11/03. culture showed no growt --ID following --on IV Zosyn + Diflucan (3) Diabetes Status: Acute Plan: --on SSI Novolog medium dose Assessment 46 y/o male admitted for salvage chemotherapy for relapsed AML, now in remission , waiting on count recovery Problem Qualifiers (1) Fever: Qualified Code: R50.9 - Fever, unspecified fever cause (2) Diabetes: Qualified Code: E11.9 - Type 2 diabetes mellitus without complication, without long-term current use of insulin Janet Holm November 17, 2016 11:27
[2016-11-17] MEDS ORDERED: FLUCONAZOLE 400 MG PREMIX BAG 200 ML IV SCH (12:00)
[2016-11-17] MEDS: NYSTAT/DIPHENHY/LIDO MOUTHWASH (Adult) 120ML SWISH-SWAL SCH ×4 (12:22→22:21)
[2016-11-17] MEDS: ACETAMINOPHEN 325 MG TAB PO PRN (13:56)
[2016-11-17] MEDS: diphenhydrAMINE HCL 25 MG CAP PO PRN (13:56)
[2016-11-17] MEDS: ATENOLOL 100 MG TAB PO SCH (22:22)
[2016-11-17] MEDS: SODIUM CHLORIDE 0.9% FLUSH 10 ML FLUSH IVF PRN ×2 (22:26→23:25)
[2016-11-18] VITALS: BP 140/90; PULSE 85; RESP 20; TEMP 98.5; O2SAT 98
[2016-11-18] MEDS: DIAZEPAM 10 MG TAB PO PRN (00:48)
[2016-11-18] MEDS: PIPERACIL-TAZO 3.375 GM PREMIX 50 ML IV SCH ×4 (05:06→22:23)
[2016-11-18] MEDS: INSULIN ASPART SUPPLEMENTAL SCALE SQ SCH ×4 (05:11→22:20)
[2016-11-18 05:12] VITALS: BP 129/84; PULSE 80; RESP 16; TEMP 96.9; O2SAT 97
[2016-11-18] MEDS: SODIUM CHLORIDE 0.9% FLUSH 10 ML FLUSH IVF PRN ×2 (05:59→23:19)
[2016-11-18 06:14] LABS: BICARBONATE 34.2 MEQ/L (21.0-32.0); POTASSIUM 3.8 MEQ/L (3.5-5.1)
[2016-11-18] MEDS: SERTRALINE HCL 50 MG TAB PO SCH (09:57)
[2016-11-18] MEDS: LISINOPRIL 10 MG TAB PO SCH (09:58)
[2016-11-18] MEDS: POTASSIUM CHLORIDE 10 MEQ CAP PO SCH ×4 (09:58→22:15)
[2016-11-18] MEDS: predniSONE 5 MG TAB PO SCH (09:58)
[2016-11-18] MEDS: NYSTAT/DIPHENHY/LIDO MOUTHWASH (Adult) 120ML SWISH-SWAL SCH ×4 (09:59→22:16)
[2016-11-18] MEDS: SODIUM CHLORIDE 0.9% FLUSH 10 ML FLUSH IVF SCH (09:59)
[2016-11-18 10:00] VITALS: BP 112/73; PULSE 86; RESP 18; TEMP 97.8; O2SAT 97
[2016-11-18 10:35] LABS: HEMATOCRIT 25.4 % (39.0-51.0); MEAN CELL VOLUME 75.7 FL (80.0-100.0); MEAN CORPUSCULAR HEMOGLOBIN 27.1 PG (27.0-34.0); MEAN CORPUSCULAR HGB CONC 35.7 % (32.0-36.0); RED BLOOD COUNT 3.35 MIL/MM3 (4.50-5.90); RED CELL DISTRIBUTION WIDTH 13.5 % (11.6-17.2); WHITE BLOOD COUNT 0.4 TH/MM3 (4.0-11.0)
[2016-11-18 10:38] LABS: HEMO FLAGS AUTO DIFF
[2016-11-18 10:43] LABS: PLATELET COUNT 19 TH/MM3 (150-450)
--- NOTE | 2016-11-18 10:43 | PD.ONC.PN ---
Subjective Subjective Remarks Afebrile overnight. Pt hopeful that he will make it to [facility] before he would need a consolidation chemotherapy. Pain in lower back improved. Objective Data Date Time Temp Pulse Resp B/P Pulse Ox O2 Delivery O2 Flow Rate FiO2 11/18/16 05:12 96.9 80 16 129/84 97 11/18/16 00:00 98.5 85 20 140/90 98 11/17/16 20:00 97.9 82 20 130/90 96 11/17/16 16:04 98.3 85 18 105/72 94 11/17/16 15:40 98.0 84 18 107/76 98 11/17/16 12:00 97.7 96 18 102/74 96 11/18/16 11/18/16 11/18/16 06:59 14:59 22:59 Intake Total 440 ml Balance 440 ml Result Diagram: 11/17/16 0545 11/18/16 0500 Laboratory Results Laboratory Tests Test 11/18/16 05:00 Sodium Level 138 MEQ/L Potassium Level 3.8 MEQ/L Chloride Level 97 MEQ/L Carbon Dioxide Level 34.2 MEQ/L Anion Gap 7 MEQ/L Blood Urea Nitrogen 21 MG/DL Creatinine 1.04 MG/DL Estimat Glomerular Filtration 76 ML/MIN Rate Random Glucose 123 MG/DL Calcium Level 10.2 MG/DL Administered Medications Medications (Trade) Dose Ordered Sig/Génesis Route PRN Reason Start Time Stop Time Status Last Admin Dose Admin Acetaminophen (Tylenol) 650 mg Q4H PRN PO TEMP> 100.5F 09/25/16 08:45 11/16/16 10:28 Heparin Sodium (Porcine) (Heparin Central Flush) 500 units UNSCH IVF 09/25/16 08:45 10/30/16 20:03 Sodium Chloride (NS Flush) 5 ml UNSCH PRN IVF SEE PROTOCOL 09/25/16 08:45 11/17/16 23:25 Heparin Sodium (Porcine) (Heparin Central Flush) 250 units UNSCH PRN IVF SEE PROTOCOL 09/25/16 08:45 11/02/16 17:43 Sertraline HCl (Zoloft) 50 mg DAILY PO 09/26/16 09:00 11/18/16 09:57 Alteplase, Recombinant 2 mg 2 mg UNSCH PRN IVF SEE LABEL COMMENTS 09/25/16 10:15 10/10/16 09:09 Ondansetron HCl/ Dextrose (Zofran Inj/D5W Inj) 54 ml @ 216 mls/hr Q8H PRN IV PUSH NAUSEA OR VOMITING 09/25/16 10:30 11/13/16 23:59 Docusate Sodium (Colace) 100 mg TID PO 09/25/16 18:00 Hold 10/19/16 13:32 Atenolol (Tenormin) 100 mg HS PO 10/14/16 21:00 11/17/16 22:22 Amlodipine Besylate (Norvasc) 5 mg DAILY PO 10/15/16 09:00 11/17/16 10:00 Diazepam (Valium) 5 mg Q12H PRN PO MILD ANXIETY 10/20/16 11:15 11/15/16 11:10 Diazepam (Valium) 10 mg HS PRN PO INSOMNIA 10/21/16 08:30 11/18/16 00:48 Loperamide HCl (Imodium) 2 mg UNSCH PRN PO DIARRHEA 10/22/16 09:00 11/17/16 10:02 Lisinopril (Prinivil) 10 mg DAILY PO 10/26/16 09:00 11/18/16 09:58 Metoclopramide HCl (Reglan) 5 mg Q8H PRN PO NAUSEA 10/27/16 07:15 10/27/16 07:25 Sodium Chloride (NS Flush) DAILY IVF 11/04/16 09:00 11/18/16 09:59 Heparin Sodium (Porcine) (Heparin Central Flush) DAILY IV FLUSH 11/04/16 09:00 11/18/16 09:58 Sodium Chloride (NS Flush) UNSCH PRN IVF SEE PROTOCOL 11/03/16 17:15 11/18/16 05:59 Heparin Sodium (Porcine) (Heparin Central Flush) UNSCH PRN IV FLUSH SEE PROTOCOL 11/03/16 17:15 11/18/16 05:59 Sodium Chloride (NS Flush) UNSCH PRN IVF SEE PROTOCOL 11/03/16 17:15 11/11/16 05:12 Acetaminophen (Tylenol) 650 mg Q4H PRN PO SEE LABEL COMMENTS 11/04/16 15:45 11/17/16 13:56 Diphenhydramine HCl 25 mg 25 mg Q4H PRN PO SEE LABEL COMMENTS 11/04/16 15:45 11/17/16 13:56 Piperacillin Sod/ Tazobactam Sod (Zosyn 3.375 Gm Premix) 50 ml @ 100 mls/hr Q6H IV 11/08/16 23:00 11/18/16 10:02 Simethicone (Phazyme Chew) 125 mg Q8HR PRN PO GAS RETENTION 11/11/16 17:30 11/11/16 18:06 Oxycodone HCl (Roxicodone) 10 mg Q4H PRN PO pain 1-10 11/12/16 20:00 11/17/16 22:21 Prednisone 5 mg 5 mg DAILY PO 11/16/16 14:00 11/18/16 09:58 Fluconazole/ Sodium Chloride (Diflucan 400 Mg Premix Bag) 200 ml @ 100 mls/hr Q24H IV 11/17/16 12:00 11/17/16 12:08 Multi-Ingredient Mouthwash/Gargle (Magic Mouthwash Adult Liq) 5 ml QID SWISH-SWAL 11/17/16 13:00 11/18/16 09:59 Potassium Chloride (KCl) 10 meq QID PO 11/17/16 18:00 11/18/16 09:58 Objective Remarks GENERAL: Middle aged male, sitting up in bed in nad SKIN: Warm and dry. HEAD: Normocephalic. EYES: No scleral icterus. No injection or drainage. MOUTH: + thrush, mild. NECK: Supple, trachea midline. CARDIOVASCULAR: Regular rate and rhythm RESPIRATORY: Breath sounds equal bilaterally. No accessory muscle use. GASTROINTESTINAL: Abdomen soft, non-tender, nondistended. EXTREMITIES: No cyanosis NEUROLOGICAL: No obvious focal deficit. Awake, alert, and oriented x3. Assessment/Plan Problem List: (1) AML (acute myeloid leukemia) Status: Acute Plan: 11/18/16: Thrush mildly improved. Continue Abx. No transfusion today. 11/17/16: give 1 unit pRBC. continue to wean Prednisone (currently 5mg PO daily) . start Diflucan and Magic mouthwash for thrush. continue Zosyn. await marrow recovery. 11/15/16: give 1 unit platelets. check ECG/troponin for cp--more likely musculoskeletal. continue to wean prednisone 11/14/16: give 2 units pRBC 1 unit platelets. continue abx. continue Prednisone at 10mg today. continue to wean as tolerated. 11/13/16: No transfusion today. Spoke with Dr Galarza re: fever spike overnight. Plan to check a stool for Cdiff as he has been having increased diarrhea. Will put him back on Vanco if persistent fevers. Continue to wean steroids. Continue Zosyn. 11/12/16: Will give platelets today for level of 17K. Continue to wean steroids. Flank and back pain likely related to bone marrow activity. Thoracic X-ray showed osteopenia and degenerative changes. 11/11/16: Remains afebrile. Will transfuse 1 unit platelets today. Prednisone cut to 20mg po daily. Encouraged pt to find activities to do to pass the time. 11/10/16 PRBC today. WBC still low. On prednisone for rash. Rash has resolved. No more fevers. 11/09: Change SS to medium dosing while on steroids. Rash improving. Will change to po prednisone. 11/08: Platelet transfusion today. Rash improving with steroids. 11/07 Still has rash. D/w Dr Galarza. She change the a/b D/W BMT team at [facility]. He is now back in remission. Monitor cbc 10/15 D20/ start second cycle of CLAG-M today. D/W side effects and increase morbidity and mortality with the second cycle. He agreed . I will be OOT . Dr Newell will see him till thursday. 10/14: D19. patient started to receive Clarabine but the pump malfunction causing the chemo to spill on the floor. the chemo is being STAT ordered again and will arrive tomorrow morning. 10/13: bone marrow flow shows 70% blasts. d/w patient, repeating induction with CLAG-M chemotherapy or enrolling in a clinical trial. patient would like to try a second induction with CLAG-M. will give Neupogen today and start tomorrow. 10/12: Mildly tachycardic today in the 110's, but no fever. PRBC x 2 ordered today. 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 Will monitor blood counts, heart rate. Plan for repeat BMB on this upcoming week. 10/09: bone marrow biopsy today. 1 unit platelets, 2 units pRBC. spiked fever 103F. cefepime started. spoke with ID, who advised me to start Daptomycin and Micafungin. transferred to ICU after becoming tachy in 140s 09/26: Start on CLAG-M chemotherapy for relapsed AML. Received Neupogen yesterday. He spiked a fever this afternoon of 101.3. BC, UA, and CXR ordered. Will start pt on Cefepime. Await BC results. --On 09/18 it was noted that he had a white count at 11k and a platelet count of 76k. Blasts were at 38%. He was brought in to the clinic on 09/24 for a bone marrow biopsy. A CBC was done and showed a white count of 63.7, Hgb 12.2, and platelet count was 33K. The blasts were at 73%. Decision was made at that time to admit for salvage chemo. History: 11/04: AML Diagnosis made. 46XY, +NPM1 mutation detected, FLT3 negative-- indicates favorable prognosis. 11/05-11/28: Initial induction with MELL-C and idarubicin (7+3). STAT Leukapheresis due to leukostasis. On D25, repeat bone marrow showed residual leukemia. 12/06-12/27: Re-induction with FLANG chemotherapy. Repeat bone marrow biopsy negative for residual AML. Patient in Complete Remission 01/06-01/10: C1 consolidation chemotherapy with Mell-C. 02/17-02/21: C2 consolidation chemotherapy with MELL-C. 03/25-03/30: C3 consolidation chemotherapy with MELL-C 04/28-05/02: C4 consolidation chemo with MELL-C (2) Fever Status: Acute Plan: --BC + on 10/24 and 10/27; BC no growth on 11/01, 11/02, 11/13 --port removed 11/03. culture showed no growt --ID following --on IV Zosyn + Diflucan (3) Diabetes Status: Acute Plan: --on SSI Novolog medium dose Assessment 46 y/o male admitted for salvage chemotherapy for relapsed AML, now in remission , waiting on count recovery Attending Statement Fells much better after hearing that WBC is coming up. No fever or Diarrhea Rash resolved. Stop Prednisone, WBC 0.4, ANC 0.3. NO TX today. d/w pt and . The exam, history, and the medical decision-making described in the above note were completed with the assistance of the mid-level provider. I reviewed and agree with the findings presented. I attest that I had a [id number] encounter with the patient on the same day, and personally performed and documented my assessment and findings in the medical record. Problem Qualifiers (1) Fever: Qualified Code: R50.9 - Fever, unspecified fever cause (2) Diabetes: Qualified Code: E11.9 - Type 2 diabetes mellitus without complication, without long-term current use of insulin Valarie Lopez November 18, 2016 10:43 Alexandra Olea MD November 18, 2016 23:12
[2016-11-18 11:11] LABS: BANDS 12 % (0-6); METAMYELOCYTES 2 % (0-1); NEUTROPHIL # MANUAL DIFF 0.3 TH/MM3 (1.8-7.7); PLASMA CELLS 2 % (0-0); PLATELET ESTIMATE SMEAR RARE (NORMAL); PLATELET MORPHOLOGY NORMAL (NORMAL); POLYS (SEG NEUTROPHILS) 52 % (16-70); SCAN/DIFF FINAL DIFF MANUAL; WBC DIFF SAMPLE 50
[2016-11-18 12:30] VITALS: BP 98/69; PULSE 79; RESP 18; TEMP 98; O2SAT 99
[2016-11-18] MEDS: FLUCONAZOLE 200 MG TAB PO SCH (14:55)
[2016-11-18 16:00] VITALS: BP 144/98; PULSE 75; RESP 16; TEMP 97.1; O2SAT 95
[2016-11-18 20:00] VITALS: BP 121/76; PULSE 84; RESP 20; TEMP 98; O2SAT 99
[2016-11-18 21:09] LABS: MEAN CORPUSCULAR HGB CONC 36.5 % (32.0-36.0)
[2016-11-18] MEDS: ATENOLOL 100 MG TAB PO SCH (22:16)
[2016-11-19] VITALS: BP 142/91; PULSE 78; RESP 20; TEMP 98; O2SAT 98
[2016-11-19] MEDS: DIAZEPAM 10 MG TAB PO PRN ×2 (01:05→20:47)
[2016-11-19 04:00] VITALS: BP_SYST 119; BP_SYST 127; BP_DIAS 79; BP_DIAS 83; PULSE 50; PULSE 76; RESP 20; TEMP 97.5; TEMP 98.2; O2SAT 97; O2SAT 99
[2016-11-19] MEDS: PIPERACIL-TAZO 3.375 GM PREMIX 50 ML IV SCH ×4 (05:04→22:44)
[2016-11-19] MEDS: INSULIN ASPART SUPPLEMENTAL SCALE SQ SCH ×4 (05:10→20:48)
[2016-11-19] MEDS: SODIUM CHLORIDE 0.9% FLUSH 10 ML FLUSH IVF PRN (05:50)
[2016-11-19 05:53] LABS: BICARBONATE 34.4 MEQ/L (21.0-32.0); POTASSIUM 3.3 MEQ/L (3.5-5.1)
[2016-11-19 05:54] LABS: HEMATOCRIT 23.2 % (39.0-51.0); MEAN CELL VOLUME 74.8 FL (80.0-100.0); MEAN CORPUSCULAR HEMOGLOBIN 27.3 PG (27.0-34.0); RED CELL DISTRIBUTION WIDTH 13.4 % (11.6-17.2); WHITE BLOOD COUNT 0.3 TH/MM3 (4.0-11.0)
[2016-11-19 05:56] LABS: HEMO FLAGS AUTO DIFF
[2016-11-19 05:57] LABS: PLATELET COUNT 13 TH/MM3 (150-450)
[2016-11-19 07:19] LABS: BANDS 18 % (0-6); BASOPHILS 3 % (0-2); NEUTROPHIL # MANUAL DIFF 0.2 TH/MM3 (1.8-7.7); PLATELET ESTIMATE SMEAR RARE (NORMAL); PLATELET MORPHOLOGY NORMAL (NORMAL); POLYS (SEG NEUTROPHILS) 53 % (16-70); SCAN/DIFF FINAL DIFF MANUAL; WBC DIFF SAMPLE 40
[2016-11-19 07:50] VITALS: BP 148/89; PULSE 81; RESP 20; TEMP 96.2; O2SAT 98
[2016-11-19] MEDS ORDERED: ACETAMINOPHEN 325 MG TAB PO PRN (08:15)
[2016-11-19] MEDS ORDERED: SODIUM CHLOR 0.9% 250 ML INJ 250 ML IV ONE (08:15)
[2016-11-19] MEDS: POTASSIUM CHLORIDE 10 MEQ CAP PO SCH ×4 (10:01→20:46)
[2016-11-19] MEDS: ACETAMINOPHEN 325 MG TAB PO PRN (10:01)
[2016-11-19] MEDS: LISINOPRIL 10 MG TAB PO SCH (10:01)
[2016-11-19] MEDS: amLODIPine BESYLATE 5 MG TAB PO SCH (10:02)
[2016-11-19] MEDS: predniSONE 5 MG TAB PO SCH (10:02)
[2016-11-19] MEDS: NYSTAT/DIPHENHY/LIDO MOUTHWASH (Adult) 120ML SWISH-SWAL SCH ×4 (10:02→20:47)
[2016-11-19] MEDS: LOPERAMIDE HCL 2 MG CAP PO PRN (10:06)
[2016-11-19] MEDS: SODIUM CHLORIDE 0.9% FLUSH 10 ML FLUSH IVF SCH (10:08)
[2016-11-19] MEDS ORDERED: POTASSIUM CHLORIDE 20 MEQ CONTROLLED RELEASE TAB PO ONE (11:00)
--- NOTE | 2016-11-19 11:05 | PD.ONC.PN ---
Subjective Subjective Remarks Afebrile overnight. Pt resting in bed in no distress. His thrush is improved. He is asking to reduce his pain medication at night to 5mg of oxycodone instead of 10mg. Objective Data Date Time Temp Pulse Resp B/P Pulse Ox O2 Delivery O2 Flow Rate FiO2 11/19/16 07:50 96.2 81 20 148/89 98 11/19/16 04:00 97.5 50 20 119/79 97 11/19/16 04:00 98.2 76 20 127/83 99 11/19/16 00:00 98.0 78 20 142/91 98 11/18/16 20:00 98.0 84 20 121/76 99 11/18/16 16:00 97.1 75 16 144/98 95 11/18/16 12:30 98.0 79 18 98/69 99 Result Diagram: 11/19/16 0505 11/19/16 0505 Laboratory Results Laboratory Tests Test 11/19/16 11/19/16 05:05 06:08 White Blood Count 0.3 TH/MM3 Red Blood Count 3.10 MIL/MM3 Hemoglobin 8.5 GM/DL Hematocrit 23.2 % Mean Corpuscular Volume 74.8 FL Mean Corpuscular Hemoglobin 27.3 PG Mean Corpuscular Hemoglobin 36.5 % Concent Red Cell Distribution Width 13.4 % Platelet Count 13 TH/MM3 Mean Platelet Volume 7.4 FL Neutrophils (%) (Auto) % Lymphocytes (%) (Auto) % Monocytes (%) (Auto) % Eosinophils (%) (Auto) % Basophils (%) (Auto) % Neutrophils # (Auto) TH/MM3 Lymphocytes # (Auto) TH/MM3 Monocytes # (Auto) TH/MM3 Eosinophils # (Auto) TH/MM3 Basophils # (Auto) TH/MM3 CBC Comment AUTO DIFF Differential Total Cells 40 Counted Neutrophils % (Manual) 53 % Band Neutrophils % 18 % Lymphocytes % 5 % Monocytes % 23 % Basophils % 3 % Neutrophils # (Manual) 0.2 TH/MM3 Differential Comment FINAL DIFF MANUAL Platelet Estimate RARE Platelet Morphology Comment NORMAL Sodium Level 139 MEQ/L Potassium Level 3.3 MEQ/L Chloride Level 96 MEQ/L Carbon Dioxide Level 34.4 MEQ/L Anion Gap 9 MEQ/L Blood Urea Nitrogen 17 MG/DL Creatinine 1.00 MG/DL Estimat Glomerular Filtration 80 ML/MIN Rate Random Glucose 132 MG/DL Calcium Level 9.5 MG/DL Blood Bank Comment Administered Medications Medications (Trade) Dose Ordered Sig/Génesis Route PRN Reason Start Time Stop Time Status Last Admin Dose Admin Acetaminophen (Tylenol) 650 mg Q4H PRN PO TEMP> 100.5F 09/25/16 08:45 11/19/16 10:01 Heparin Sodium (Porcine) (Heparin Central Flush) 500 units UNSCH IVF 09/25/16 08:45 10/30/16 20:03 Sodium Chloride (NS Flush) 5 ml UNSCH PRN IVF SEE PROTOCOL 09/25/16 08:45 11/18/16 23:19 Heparin Sodium (Porcine) (Heparin Central Flush) 250 units UNSCH PRN IVF SEE PROTOCOL 09/25/16 08:45 11/18/16 23:19 Alteplase, Recombinant 2 mg 2 mg UNSCH PRN IVF SEE LABEL COMMENTS 09/25/16 10:15 10/10/16 09:09 Ondansetron HCl/ Dextrose (Zofran Inj/D5W Inj) 54 ml @ 216 mls/hr Q8H PRN IV PUSH NAUSEA OR VOMITING 09/25/16 10:30 11/13/16 23:59 Docusate Sodium (Colace) 100 mg TID PO 09/25/16 18:00 Hold 10/19/16 13:32 Atenolol (Tenormin) 100 mg HS PO 10/14/16 21:00 11/18/16 22:16 Amlodipine Besylate (Norvasc) 5 mg DAILY PO 10/15/16 09:00 11/19/16 10:02 Diazepam (Valium) 5 mg Q12H PRN PO MILD ANXIETY 10/20/16 11:15 11/15/16 11:10 Diazepam (Valium) 10 mg HS PRN PO INSOMNIA 10/21/16 08:30 11/19/16 01:05 Loperamide HCl (Imodium) 2 mg UNSCH PRN PO DIARRHEA 10/22/16 09:00 11/19/16 10:06 Lisinopril (Prinivil) 10 mg DAILY PO 10/26/16 09:00 11/19/16 10:01 Metoclopramide HCl (Reglan) 5 mg Q8H PRN PO NAUSEA 10/27/16 07:15 10/27/16 07:25 Sodium Chloride (NS Flush) DAILY IVF 11/04/16 09:00 11/19/16 10:08 Heparin Sodium (Porcine) (Heparin Central Flush) DAILY IV FLUSH 11/04/16 09:00 11/18/16 09:58 Sodium Chloride (NS Flush) UNSCH PRN IVF SEE PROTOCOL 11/03/16 17:15 11/19/16 05:50 Heparin Sodium (Porcine) (Heparin Central Flush) UNSCH PRN IV FLUSH SEE PROTOCOL 11/03/16 17:15 11/19/16 05:51 Sodium Chloride (NS Flush) UNSCH PRN IVF SEE PROTOCOL 11/03/16 17:15 11/11/16 05:12 Acetaminophen (Tylenol) 650 mg Q4H PRN PO SEE LABEL COMMENTS 11/04/16 15:45 11/17/16 13:56 Diphenhydramine HCl 25 mg 25 mg Q4H PRN PO SEE LABEL COMMENTS 11/04/16 15:45 11/17/16 13:56 Piperacillin Sod/ Tazobactam Sod (Zosyn 3.375 Gm Premix) 50 ml @ 100 mls/hr Q6H IV 11/08/16 23:00 11/19/16 10:03 Simethicone (Phazyme Chew) 125 mg Q8HR PRN PO GAS RETENTION 11/11/16 17:30 11/11/16 18:06 Oxycodone HCl (Roxicodone) 10 mg Q4H PRN PO pain 1-10 11/12/16 20:00 11/18/16 22:16 Prednisone (Deltasone) 5 mg DAILY PO 11/16/16 14:00 11/19/16 10:02 Multi-Ingredient Mouthwash/Gargle (Magic Mouthwash Adult Liq) 5 ml QID SWISH-SWAL 11/17/16 13:00 11/19/16 10:02 Potassium Chloride (KCl) 10 meq QID PO 11/17/16 18:00 11/19/16 10:01 Fluconazole (Diflucan) 400 mg Q24H PO 11/18/16 14:00 11/18/16 14:55 Objective Remarks GENERAL: Middle aged male, resting in bed in no distress. SKIN: Warm and dry. HEAD: Normocephalic. EYES: No scleral icterus. No injection or drainage. MOUTH: Thrush improved. NECK: Supple, trachea midline. CARDIOVASCULAR: Regular rate and rhythm RESPIRATORY: Breath sounds equal bilaterally. No accessory muscle use. GASTROINTESTINAL: Abdomen soft, non-tender, nondistended. EXTREMITIES: No cyanosis. No edema. NEUROLOGICAL: No obvious focal deficit. Awake, alert, and oriented x3. Assessment/Plan Problem List: (1) AML (acute myeloid leukemia) Status: Acute Plan: 11/19/16: Will give HLA matched platelets today for platelet level of 13k. 11/18/16: Thrush mildly improved. Continue Abx. No transfusion today. 11/17/16: give 1 unit pRBC. continue to wean Prednisone (currently 5mg PO daily) . start Diflucan and Magic mouthwash for thrush. continue Zosyn. await marrow recovery. 11/15/16: give 1 unit platelets. check ECG/troponin for cp--more likely musculoskeletal. continue to wean prednisone 11/14/16: give 2 units pRBC 1 unit platelets. continue abx. continue Prednisone at 10mg today. continue to wean as tolerated. 11/13/16: No transfusion today. Spoke with Dr Galarza re: fever spike overnight. Plan to check a stool for Cdiff as he has been having increased diarrhea. Will put him back on Vanco if persistent fevers. Continue to wean steroids. Continue Zosyn. 11/12/16: Will give platelets today for level of 17K. Continue to wean steroids. Flank and back pain likely related to bone marrow activity. Thoracic X-ray showed osteopenia and degenerative changes. 11/11/16: Remains afebrile. Will transfuse 1 unit platelets today. Prednisone cut to 20mg po daily. Encouraged pt to find activities to do to pass the time. 11/10/16 PRBC today. WBC still low. On prednisone for rash. Rash has resolved. No more fevers. 11/09: Change SS to medium dosing while on steroids. Rash improving. Will change to po prednisone. 11/08: Platelet transfusion today. Rash improving with steroids. 11/07 Still has rash. D/w Dr Galarza. She change the a/b D/W BMT team at [facility]. He is now back in remission. Monitor cbc 10/15 D20/1 start second cycle of CLAG-M today. D/W side effects and increase morbidity and mortality with the second cycle. He agreed . I will be OOT . Dr Newell will see him till thursday. 10/14: D19. patient started to receive Clarabine but the pump malfunction causing the chemo to spill on the floor. the chemo is being STAT ordered again and will arrive tomorrow morning. 10/13: bone marrow flow shows 70% blasts. d/w patient, repeating induction with CLAG-M chemotherapy or enrolling in a clinical trial. patient would like to try a second induction with CLAG-M. will give Neupogen today and start tomorrow. 10/12: Mildly tachycardic today in the 110's, but no fever. PRBC x 2 ordered today. 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 Will monitor blood counts, heart rate. Plan for repeat BMB on this upcoming week. 10/09: bone marrow biopsy today. 1 unit platelets, 2 units pRBC. spiked fever 103F. cefepime started. spoke with ID, who advised me to start Daptomycin and Micafungin. transferred to ICU after becoming tachy in 140s 09/26: Start on CLAG-M chemotherapy for relapsed AML. Received Neupogen yesterday. He spiked a fever this afternoon of 101.3. BC, UA, and CXR ordered. Will start pt on Cefepime. Await BC results. --On 09/18 it was noted that he had a white count at 11k and a platelet count of 76k. Blasts were at 38%. He was brought in to the clinic on 09/24 for a bone marrow biopsy. A CBC was done and showed a white count of 63.7, Hgb 12.2, and platelet count was 33K. The blasts were at 73%. Decision was made at that time to admit for salvage chemo. History: 11/04: AML Diagnosis made. 46XY, +NPM1 mutation detected, FLT3 negative-- indicates favorable prognosis. 11/05-11/28: Initial induction with MELL-C and idarubicin (7+3). STAT Leukapheresis due to leukostasis. On D25, repeat bone marrow showed residual leukemia. 12/06-12/27: Re-induction with FLANG chemotherapy. Repeat bone marrow biopsy negative for residual AML. Patient in Complete Remission 01/06-01/10: C1 consolidation chemotherapy with Mell-C. 02/17-02/21: C2 consolidation chemotherapy with MELL-C. 03/25-03/30: C3 consolidation chemotherapy with MELL-C 04/28-05/02: C4 consolidation chemo with MELL-C (2) Fever Status: Acute Plan: --BC + on 10/24 and 10/27; BC no growth on 11/01, 11/02, 11/13 --port removed 11/03. culture showed no growt --ID following --on IV Zosyn + Diflucan (3) Diabetes Status: Acute Plan: --on SSI Novolog medium dose Assessment 46 y/o male admitted for salvage chemotherapy for relapsed AML, now in remission , waiting on count recovery Attending Statement No c/o D/C prednisone. ANC 300 Await bM recovery. D/W pharmacy coordinator at [facility] again today. The exam, history, and the medical decision-making described in the above note were completed with the assistance of the mid-level provider. I reviewed and agree with the findings presented. I attest that I had a [id number] encounter with the patient on the same day, and personally performed and documented my assessment and findings in the medical record. Problem Qualifiers (1) Fever: Qualified Code: R50.9 - Fever, unspecified fever cause (2) Diabetes: Qualified Code: E11.9 - Type 2 diabetes mellitus without complication, without long-term current use of insulin Valarie Lopez November 19, 2016 11:05 Alexandra Olea MD November 19, 2016 21:41
[2016-11-19 11:30] VITALS: BP 118/85; PULSE 87; RESP 20; TEMP 96.2; O2SAT 94
[2016-11-19] MEDS: FLUCONAZOLE 200 MG TAB PO SCH (15:11)
[2016-11-19 15:50] VITALS: BP 123/79; PULSE 77; RESP 20; TEMP 96.6; O2SAT 96
[2016-11-19 20:00] VITALS: BP 119/98; PULSE 87; RESP 18; TEMP 97.4; O2SAT 99
[2016-11-19] MEDS: ATENOLOL 100 MG TAB PO SCH (20:46)
[2016-11-20] VITALS (7 sets, daily range): BP systolic 98–128; BP diastolic 63–87; PULSE 81–91; RESP 16–20; TEMP 96.8–98.1; O2SAT 96–100
[2016-11-20] MEDS: PIPERACIL-TAZO 3.375 GM PREMIX 50 ML IV SCH ×4 (05:51→23:21)
[2016-11-20] MEDS: INSULIN ASPART SUPPLEMENTAL SCALE SQ SCH ×4 (05:56→20:54)
[2016-11-20 06:20] LABS: HEMATOCRIT 23.1 % (39.0-51.0); MEAN CELL VOLUME 75.4 FL (80.0-100.0); MEAN CORPUSCULAR HEMOGLOBIN 26.6 PG (27.0-34.0); MEAN CORPUSCULAR HGB CONC 35.3 % (32.0-36.0); RED BLOOD COUNT 3.07 MIL/MM3 (4.50-5.90); RED CELL DISTRIBUTION WIDTH 13.4 % (11.6-17.2); WHITE BLOOD COUNT 0.5 TH/MM3 (4.0-11.0)
[2016-11-20 06:38] LABS: HEMO FLAGS AUTO DIFF
[2016-11-20 06:41] LABS: PLATELET COUNT 16 TH/MM3 (150-450)
[2016-11-20 07:08] LABS: POTASSIUM 3.6 MEQ/L (3.5-5.1)
[2016-11-20 08:47] LABS: BANDS 4 % (0-6)
[2016-11-20 08:49] LABS: CORRECTED NUCLEATED RBC 4 /100 WBC (0-0); MYELOCYTES 2 % (0-0); NEUTROPHIL # MANUAL DIFF 0.3 TH/MM3 (1.8-7.7); PLATELET ESTIMATE SMEAR RARE (NORMAL); PLATELET MORPHOLOGY NORMAL (NORMAL); POLYS (SEG NEUTROPHILS) 60 % (16-70); SCAN/DIFF FINAL DIFF MANUAL; WBC DIFF SAMPLE 50
[2016-11-20] MEDS: amLODIPine BESYLATE 5 MG TAB PO SCH (09:00)
[2016-11-20] MEDS: LOPERAMIDE HCL 2 MG CAP PO PRN (09:03)
[2016-11-20] MEDS: POTASSIUM CHLORIDE 10 MEQ CAP PO SCH ×4 (09:04→20:38)
[2016-11-20] MEDS: NYSTAT/DIPHENHY/LIDO MOUTHWASH (Adult) 120ML SWISH-SWAL SCH ×4 (09:05→20:38)
[2016-11-20] MEDS: LISINOPRIL 10 MG TAB PO SCH (09:07)
[2016-11-20] MEDS: SODIUM CHLORIDE 0.9% FLUSH 10 ML FLUSH IVF SCH (10:21)
--- NOTE | 2016-11-20 13:17 | PD.ONC.PN ---
Subjective Subjective Remarks Afebrile overnight. patient resting comfortably without complaint. Ate breakfast this morning. Objective Data Date Time Temp Pulse Resp B/P Pulse Ox O2 Delivery O2 Flow Rate FiO2 11/20/16 09:07 111/82 11/20/16 08:00 98.0 81 16 98/63 100 11/20/16 04:00 96.8 84 17 110/79 100 11/20/16 00:00 98.0 84 16 128/87 100 11/19/16 20:00 97.4 87 18 119/98 99 11/19/16 15:50 96.6 77 20 123/79 96 11/20/16 11/20/16 11/20/16 07:00 15:00 23:00 Intake Total 600 ml Balance 600 ml Result Diagram: 11/20/16 0556 11/20/16 0556 Laboratory Results Laboratory Tests Test 11/20/16 05:56 White Blood Count 0.5 TH/MM3 Red Blood Count 3.07 MIL/MM3 Hemoglobin 8.2 GM/DL Hematocrit 23.1 % Mean Corpuscular Volume 75.4 FL Mean Corpuscular Hemoglobin 26.6 PG Mean Corpuscular Hemoglobin 35.3 % Concent Red Cell Distribution Width 13.4 % Platelet Count 16 TH/MM3 Mean Platelet Volume 7.5 FL Neutrophils (%) (Auto) % Lymphocytes (%) (Auto) % Monocytes (%) (Auto) % Eosinophils (%) (Auto) % Basophils (%) (Auto) % Neutrophils # (Auto) TH/MM3 Lymphocytes # (Auto) TH/MM3 Monocytes # (Auto) TH/MM3 Eosinophils # (Auto) TH/MM3 Basophils # (Auto) TH/MM3 CBC Comment AUTO DIFF Differential Total Cells 50 Counted Neutrophils % (Manual) 60 % Band Neutrophils % 4 % Lymphocytes % 12 % Monocytes % 22 % Neutrophils # (Manual) 0.3 TH/MM3 Myelocytes 2 % Nucleated Red Blood Cells 4 /100 WBC Differential Comment FINAL DIFF MANUAL Platelet Estimate RARE Platelet Morphology Comment NORMAL Sodium Level 138 MEQ/L Potassium Level 3.6 MEQ/L Chloride Level 100 MEQ/L Carbon Dioxide Level 32.0 MEQ/L Anion Gap 6 MEQ/L Blood Urea Nitrogen 17 MG/DL Creatinine 0.90 MG/DL Estimat Glomerular Filtration 90 ML/MIN Rate Random Glucose 121 MG/DL Calcium Level 9.7 MG/DL Administered Medications Medications (Trade) Dose Ordered Sig/Génesis Route PRN Reason Start Time Stop Time Status Last Admin Dose Admin Acetaminophen (Tylenol) 650 mg Q4H PRN PO TEMP> 100.5F 09/25/16 08:45 11/19/16 10:01 Heparin Sodium (Porcine) (Heparin Central Flush) 500 units UNSCH IVF 09/25/16 08:45 10/30/16 20:03 Sodium Chloride (NS Flush) 5 ml UNSCH PRN IVF SEE PROTOCOL 09/25/16 08:45 11/18/16 23:19 Heparin Sodium (Porcine) (Heparin Central Flush) 250 units UNSCH PRN IVF SEE PROTOCOL 09/25/16 08:45 11/18/16 23:19 Alteplase, Recombinant 2 mg 2 mg UNSCH PRN IVF SEE LABEL COMMENTS 09/25/16 10:15 10/10/16 09:09 Ondansetron HCl/ Dextrose (Zofran Inj/D5W Inj) 54 ml @ 216 mls/hr Q8H PRN IV PUSH NAUSEA OR VOMITING 09/25/16 10:30 11/13/16 23:59 Docusate Sodium (Colace) 100 mg TID PO 09/25/16 18:00 Hold 10/19/16 13:32 Atenolol (Tenormin) 100 mg HS PO 10/14/16 21:00 11/19/16 20:46 Amlodipine Besylate (Norvasc) 5 mg DAILY PO 10/15/16 09:00 11/19/16 10:02 Diazepam (Valium) 5 mg Q12H PRN PO MILD ANXIETY 10/20/16 11:15 11/15/16 11:10 Diazepam (Valium) 10 mg HS PRN PO INSOMNIA 10/21/16 08:30 11/19/16 20:47 Loperamide HCl (Imodium) 2 mg UNSCH PRN PO DIARRHEA 10/22/16 09:00 11/20/16 09:03 Lisinopril (Prinivil) 10 mg DAILY PO 10/26/16 09:00 11/20/16 09:07 Metoclopramide HCl (Reglan) 5 mg Q8H PRN PO NAUSEA 10/27/16 07:15 10/27/16 07:25 Sodium Chloride (NS Flush) DAILY IVF 11/04/16 09:00 11/20/16 10:21 Heparin Sodium (Porcine) (Heparin Central Flush) DAILY IV FLUSH 11/04/16 09:00 11/18/16 09:58 Sodium Chloride (NS Flush) UNSCH PRN IVF SEE PROTOCOL 11/03/16 17:15 11/19/16 05:50 Heparin Sodium (Porcine) (Heparin Central Flush) UNSCH PRN IV FLUSH SEE PROTOCOL 11/03/16 17:15 11/19/16 05:51 Sodium Chloride (NS Flush) UNSCH PRN IVF SEE PROTOCOL 11/03/16 17:15 11/11/16 05:12 Acetaminophen (Tylenol) 650 mg Q4H PRN PO SEE LABEL COMMENTS 11/04/16 15:45 11/17/16 13:56 Diphenhydramine HCl 25 mg 25 mg Q4H PRN PO SEE LABEL COMMENTS 11/04/16 15:45 11/17/16 13:56 Piperacillin Sod/ Tazobactam Sod (Zosyn 3.375 Gm Premix) 50 ml @ 100 mls/hr Q6H IV 11/08/16 23:00 11/20/16 10:21 Simethicone (Phazyme Chew) 125 mg Q8HR PRN PO GAS RETENTION 11/11/16 17:30 11/11/16 18:06 Oxycodone HCl (Roxicodone) 10 mg Q4H PRN PO pain 1-10 11/12/16 20:00 11/19/16 20:48 Multi-Ingredient Mouthwash/Gargle (Magic Mouthwash Adult Liq) 5 ml QID SWISH-SWAL 11/17/16 13:00 11/20/16 09:05 Potassium Chloride (KCl) 10 meq QID PO 11/17/16 18:00 11/20/16 09:04 Fluconazole (Diflucan) 400 mg Q24H PO 11/18/16 14:00 11/19/16 15:11 Objective Remarks GENERAL: Well-nourished, well-developed patient. SKIN: Warm and dry. HEAD: Normocephalic. EYES: No scleral icterus. No injection or drainage. NECK: Supple, trachea midline. No JVD or lymphadenopathy. LYMPHATIC: No adenopathy. CARDIOVASCULAR: Regular rate and rhythm without murmurs. RESPIRATORY: Breath sounds equal bilaterally. No accessory muscle use. GASTROINTESTINAL: Abdomen soft, non-tender, nondistended. EXTREMITIES: No cyanosis, or edema. MUSCULOSKELETAL: Adequate muscle tone. NEUROLOGICAL: No obvious focal deficit. Awake, alert, and oriented x3. PSYCHIATRIC: Appropriate mood and affect; insight and judgment normal. Assessment/Plan Problem List: (1) AML (acute myeloid leukemia) Status: Acute Plan: 11/20/16: no transfusion today. pleased WBC continuing to rise. 11/19/16: Will give HLA matched platelets today for platelet level of 13k. 11/18/16: Thrush mildly improved. Continue Abx. No transfusion today. 11/17/16: give 1 unit pRBC. continue to wean Prednisone (currently 5mg PO daily) . start Diflucan and Magic mouthwash for thrush. continue Zosyn. await marrow recovery. 11/15/16: give 1 unit platelets. check ECG/troponin for cp--more likely musculoskeletal. continue to wean prednisone 11/14/16: give 2 units pRBC 1 unit platelets. continue abx. continue Prednisone at 10mg today. continue to wean as tolerated. 11/13/16: No transfusion today. Spoke with Dr Galarza re: fever spike overnight. Plan to check a stool for Cdiff as he has been having increased diarrhea. Will put him back on Vanco if persistent fevers. Continue to wean steroids. Continue Zosyn. 11/12/16: Will give platelets today for level of 17K. Continue to wean steroids. Flank and back pain likely related to bone marrow activity. Thoracic X-ray showed osteopenia and degenerative changes. 11/11/16: Remains afebrile. Will transfuse 1 unit platelets today. Prednisone cut to 20mg po daily. Encouraged pt to find activities to do to pass the time. 11/10/16 PRBC today. WBC still low. On prednisone for rash. Rash has resolved. No more fevers. 11/09: Change SS to medium dosing while on steroids. Rash improving. Will change to po prednisone. 11/08: Platelet transfusion today. Rash improving with steroids. 11/07 Still has rash. D/w Dr Galarza. She change the a/b D/W BMT team at [facility]. He is now back in remission. Monitor cbc 10/15 D20/1 start second cycle of CLAG-M today. D/W side effects and increase morbidity and mortality with the second cycle. He agreed . I will be OOT . Dr Newell will see him till thursday. 10/14: D19. patient started to receive Clarabine but the pump malfunction causing the chemo to spill on the floor. the chemo is being STAT ordered again and will arrive tomorrow morning. 10/13: bone marrow flow shows 70% blasts. d/w patient, repeating induction with CLAG-M chemotherapy or enrolling in a clinical trial. patient would like to try a second induction with CLAG-M. will give Neupogen today and start tomorrow. 10/12: Mildly tachycardic today in the 110's, but no fever. PRBC x 2 ordered today. 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 Will monitor blood counts, heart rate. Plan for repeat BMB on this upcoming week. 10/09: bone marrow biopsy today. 1 unit platelets, 2 units pRBC. spiked fever 103F. cefepime started. spoke with ID, who advised me to start Daptomycin and Micafungin. transferred to ICU after becoming tachy in 140s 09/26: Start on CLAG-M chemotherapy for relapsed AML. Received Neupogen yesterday. He spiked a fever this afternoon of 101.3. BC, UA, and CXR ordered. Will start pt on Cefepime. Await BC results. History: 11/04: AML Diagnosis made. 46XY, +NPM1 mutation detected, FLT3 negative-- indicates favorable prognosis. 11/05-11/28: Initial induction with MELL-C and idarubicin (7+3). STAT Leukapheresis due to leukostasis. On D25, repeat bone marrow showed residual leukemia. 12/06-12/27: Re-induction with FLANG chemotherapy. Repeat bone marrow biopsy negative for residual AML. Patient in Complete Remission 01/06-01/10: C1 consolidation chemotherapy with Mell-C. 02/17-02/21: C2 consolidation chemotherapy with MELL-C. 03/25-03/30: C3 consolidation chemotherapy with MELL-C 04/28-05/02: C4 consolidation chemo with MELL-C (2) Fever Status: Acute Plan: --BC + on 10/24 and 10/27; BC no growth on 11/01, 11/02, 11/13 --port removed 11/03. culture showed no growt --ID following --on IV Zosyn + Diflucan (3) Diabetes Status: Acute Plan: --on SSI Novolog medium dose Assessment 46 y/o male admitted for salvage chemotherapy for relapsed AML, now in remission , waiting on count recovery Attending Statement no c/o feels better. WBC rising. Await BM recovery. continue same plan. Problem Qualifiers (1) Fever: Qualified Code: R50.9 - Fever, unspecified fever cause (2) Diabetes: Qualified Code: E11.9 - Type 2 diabetes mellitus without complication, without long-term current use of insulin Janet Holm November 20, 2016 13:17 Alexandra Olea MD November 20, 2016 22:26
[2016-11-20] MEDS: SERTRALINE HCL 50 MG TAB PO SCH (13:49)
[2016-11-20] MEDS: FLUCONAZOLE 200 MG TAB PO SCH (13:49)
--- NOTE | 2016-11-20 17:16 | HHI.PR ---
Addendum to Inpatient Note Additional Information records reviewed Counts improving but still < 500 Anticipate to dc home off abx when ANC> =500 x 2 days Laura Galarza MD November 20, 2016 17:16
[2016-11-20] MEDS: DIAZEPAM 10 MG TAB PO PRN (20:38)
[2016-11-20] MEDS: ATENOLOL 100 MG TAB PO SCH (20:38)
[2016-11-21] VITALS: BP 136/82; PULSE 88; RESP 18; TEMP 98; O2SAT 96
[2016-11-21 05:00] VITALS: BP 124/86; PULSE 83; RESP 16; TEMP 97.8; O2SAT 99
[2016-11-21] MEDS: PIPERACIL-TAZO 3.375 GM PREMIX 50 ML IV SCH ×4 (05:16→21:54)
[2016-11-21] MEDS: INSULIN ASPART SUPPLEMENTAL SCALE SQ SCH ×4 (05:19→21:56)
[2016-11-21 06:58] LABS: HEMATOCRIT 22.8 % (39.0-51.0); MEAN CELL VOLUME 75.9 FL (80.0-100.0); MEAN CORPUSCULAR HEMOGLOBIN 26.4 PG (27.0-34.0); MEAN CORPUSCULAR HGB CONC 34.7 % (32.0-36.0); RED CELL DISTRIBUTION WIDTH 13.5 % (11.6-17.2); WHITE BLOOD COUNT 0.7 TH/MM3 (4.0-11.0)
[2016-11-21 07:00] VITALS: BP 118/74; PULSE 75; RESP 15; TEMP 97.7; O2SAT 96
[2016-11-21 07:01] LABS: HEMO FLAGS AUTO DIFF
[2016-11-21 07:04] LABS: PLATELET COUNT 13 TH/MM3 (150-450)
[2016-11-21 07:30] LABS: BICARBONATE 32.5 MEQ/L (21.0-32.0); POTASSIUM 3.6 MEQ/L (3.5-5.1)
--- NOTE | 2016-11-21 07:36 | PD.ONC.PN ---
Subjective Subjective Remarks no c/o offer. feels better. no fever or rash. Objective Data Date Time Temp Pulse Resp B/P Pulse Ox O2 Delivery O2 Flow Rate FiO2 11/21/16 05:00 97.8 83 16 124/86 99 11/21/16 00:00 98.0 88 18 136/82 96 11/20/16 20:00 98.0 91 18 121/84 99 11/20/16 16:00 98.1 82 20 121/80 100 11/20/16 12:00 97.9 81 20 106/74 96 11/20/16 09:07 111/82 11/20/16 08:00 98.0 81 16 98/63 100 11/21/16 11/21/16 11/21/16 07:00 15:00 23:00 Intake Total 720 ml Balance 720 ml Result Diagram: 11/21/16 0500 11/21/16 0500 Laboratory Results Laboratory Tests Test 11/21/16 05:00 White Blood Count 0.7 TH/MM3 Red Blood Count 3.00 MIL/MM3 Hemoglobin 7.9 GM/DL Hematocrit 22.8 % Mean Corpuscular Volume 75.9 FL Mean Corpuscular Hemoglobin 26.4 PG Mean Corpuscular Hemoglobin 34.7 % Concent Red Cell Distribution Width 13.5 % Platelet Count 13 TH/MM3 Mean Platelet Volume 8.2 FL Neutrophils (%) (Auto) % Lymphocytes (%) (Auto) % Monocytes (%) (Auto) % Eosinophils (%) (Auto) % Basophils (%) (Auto) % Neutrophils # (Auto) TH/MM3 Lymphocytes # (Auto) TH/MM3 Monocytes # (Auto) TH/MM3 Eosinophils # (Auto) TH/MM3 Basophils # (Auto) TH/MM3 CBC Comment AUTO DIFF Sodium Level 138 MEQ/L Potassium Level 3.6 MEQ/L Chloride Level 98 MEQ/L Carbon Dioxide Level 32.5 MEQ/L Anion Gap 8 MEQ/L Blood Urea Nitrogen 18 MG/DL Creatinine 1.00 MG/DL Estimat Glomerular Filtration 80 ML/MIN Rate Random Glucose 144 MG/DL Calcium Level 9.7 MG/DL Administered Medications Medications (Trade) Dose Ordered Sig/Génesis Route PRN Reason Start Time Stop Time Status Last Admin Dose Admin Acetaminophen (Tylenol) 650 mg Q4H PRN PO TEMP> 100.5F 09/25/16 08:45 11/19/16 10:01 Heparin Sodium (Porcine) (Heparin Central Flush) 500 units UNSCH IVF 09/25/16 08:45 10/30/16 20:03 Sodium Chloride (NS Flush) 5 ml UNSCH PRN IVF SEE PROTOCOL 09/25/16 08:45 11/18/16 23:19 Heparin Sodium (Porcine) (Heparin Central Flush) 250 units UNSCH PRN IVF SEE PROTOCOL 09/25/16 08:45 11/18/16 23:19 Alteplase, Recombinant 2 mg 2 mg UNSCH PRN IVF SEE LABEL COMMENTS 09/25/16 10:15 10/10/16 09:09 Ondansetron HCl/ Dextrose (Zofran Inj/D5W Inj) 54 ml @ 216 mls/hr Q8H PRN IV PUSH NAUSEA OR VOMITING 09/25/16 10:30 11/13/16 23:59 Docusate Sodium (Colace) 100 mg TID PO 09/25/16 18:00 Hold 10/19/16 13:32 Atenolol (Tenormin) 100 mg HS PO 10/14/16 21:00 11/20/16 20:38 Amlodipine Besylate (Norvasc) 5 mg DAILY PO 10/15/16 09:00 11/19/16 10:02 Diazepam (Valium) 5 mg Q12H PRN PO MILD ANXIETY 10/20/16 11:15 11/15/16 11:10 Diazepam (Valium) 10 mg HS PRN PO INSOMNIA 10/21/16 08:30 11/20/16 20:38 Loperamide HCl (Imodium) 2 mg UNSCH PRN PO DIARRHEA 10/22/16 09:00 11/20/16 09:03 Lisinopril (Prinivil) 10 mg DAILY PO 10/26/16 09:00 11/20/16 09:07 Metoclopramide HCl (Reglan) 5 mg Q8H PRN PO NAUSEA 10/27/16 07:15 10/27/16 07:25 Sodium Chloride (NS Flush) DAILY IVF 11/04/16 09:00 11/20/16 10:21 Heparin Sodium (Porcine) (Heparin Central Flush) DAILY IV FLUSH 11/04/16 09:00 11/18/16 09:58 Sodium Chloride (NS Flush) UNSCH PRN IVF SEE PROTOCOL 11/03/16 17:15 11/19/16 05:50 Heparin Sodium (Porcine) (Heparin Central Flush) UNSCH PRN IV FLUSH SEE PROTOCOL 11/03/16 17:15 11/19/16 05:51 Sodium Chloride (NS Flush) UNSCH PRN IVF SEE PROTOCOL 11/03/16 17:15 11/11/16 05:12 Acetaminophen (Tylenol) 650 mg Q4H PRN PO SEE LABEL COMMENTS 11/04/16 15:45 11/17/16 13:56 Diphenhydramine HCl 25 mg 25 mg Q4H PRN PO SEE LABEL COMMENTS 11/04/16 15:45 11/17/16 13:56 Piperacillin Sod/ Tazobactam Sod (Zosyn 3.375 Gm Premix) 50 ml @ 100 mls/hr Q6H IV 11/08/16 23:00 11/21/16 05:16 Simethicone (Phazyme Chew) 125 mg Q8HR PRN PO GAS RETENTION 11/11/16 17:30 11/11/16 18:06 Oxycodone HCl (Roxicodone) 10 mg Q4H PRN PO pain 1-10 11/12/16 20:00 11/20/16 20:39 Multi-Ingredient Mouthwash/Gargle (Magic Mouthwash Adult Liq) 5 ml QID SWISH-SWAL 11/17/16 13:00 11/20/16 20:38 Potassium Chloride (KCl) 10 meq QID PO 11/17/16 18:00 11/20/16 20:38 Fluconazole (Diflucan) 400 mg Q24H PO 11/18/16 14:00 11/20/16 13:49 Sertraline HCl (Zoloft) 50 mg DAILY PO 11/20/16 12:45 11/20/16 13:49 Objective Remarks GENERAL: Well-nourished, well-developed patient. SKIN: Warm and dry. HEAD: Normocephalic. EYES: No scleral icterus. No injection or drainage. NECK: Supple, trachea midline. No JVD or lymphadenopathy. LYMPHATIC: No adenopathy. CARDIOVASCULAR: Regular rate and rhythm without murmurs. RESPIRATORY: Breath sounds equal bilaterally. No accessory muscle use. GASTROINTESTINAL: Abdomen soft, non-tender, nondistended. EXTREMITIES: No cyanosis, or edema. NEUROLOGICAL: No obvious focal deficit. Awake, alert, and oriented x3. Assessment/Plan Problem List: (1) AML (acute myeloid leukemia) Status: Acute Plan: 11/21 WBC is rising. today is 0.7. Diff is pending PRBC and plat tx today continue present antibiotics. 11/20/16: no transfusion today. pleased WBC continuing to rise. 11/19/16: Will give HLA matched platelets today for platelet level of 13k. 11/18/16: Thrush mildly improved. Continue Abx. No transfusion today. 11/17/16: give 1 unit pRBC. continue to wean Prednisone (currently 5mg PO daily) . start Diflucan and Magic mouthwash for thrush. continue Zosyn. await marrow recovery. 11/15/16: give 1 unit platelets. check ECG/troponin for cp--more likely musculoskeletal. continue to wean prednisone 11/14/16: give 2 units pRBC 1 unit platelets. continue abx. continue Prednisone at 10mg today. continue to wean as tolerated. 11/13/16: No transfusion today. Spoke with Dr Galarza re: fever spike overnight. Plan to check a stool for Cdiff as he has been having increased diarrhea. Will put him back on Vanco if persistent fevers. Continue to wean steroids. Continue Zosyn. 11/12/16: Will give platelets today for level of 17K. Continue to wean steroids. Flank and back pain likely related to bone marrow activity. Thoracic X-ray showed osteopenia and degenerative changes. 11/11/16: Remains afebrile. Will transfuse 1 unit platelets today. Prednisone cut to 20mg po daily. Encouraged pt to find activities to do to pass the time. 11/10/16 PRBC today. WBC still low. On prednisone for rash. Rash has resolved. No more fevers. 11/09: Change SS to medium dosing while on steroids. Rash improving. Will change to po prednisone. 11/08: Platelet transfusion today. Rash improving with steroids. 11/07 Still has rash. D/w Dr Galarza. She change the a/b D/W BMT team at [facility] He is now back in remission. Monitor cbc 10/15 D20/1 start second cycle of CLAG-M today. D/W side effects and increase morbidity and mortality with the second cycle. He agreed . I will be OOT . Dr Newell will see him till thursday. 10/14: D19. patient started to receive Clarabine but the pump malfunction causing the chemo to spill on the floor. the chemo is being STAT ordered again and will arrive tomorrow morning. 10/13: bone marrow flow shows 70% blasts. d/w patient, repeating induction with CLAG-M chemotherapy or enrolling in a clinical trial. patient would like to try a second induction with CLAG-M. will give Neupogen today and start tomorrow. 10/12: Mildly tachycardic today in the 110's, but no fever. PRBC x 2 ordered today. [employer] replacing potassium per protocol for level of 3.2. Will monitor blood counts, heart rate. Plan for repeat BMB on this upcoming week. 10/09: bone marrow biopsy today. 1 unit platelets, 2 units pRBC. spiked fever 103F. cefepime started. spoke with ID, who advised me to start Daptomycin and Micafungin. transferred to ICU after becoming tachy in 140s 09/26: Start on CLAG-M chemotherapy for relapsed AML. Received Neupogen yesterday. He spiked a fever this afternoon of 101.3. BC, UA, and CXR ordered. Will start pt on Cefepime. Await BC results. History: 11/04: AML Diagnosis made. 46XY, +NPM1 mutation detected, FLT3 negative-- indicates favorable prognosis. 11/05-11/28: Initial induction with MELL-C and idarubicin (7+3). STAT Leukapheresis due to leukostasis. On D25, repeat bone marrow showed residual leukemia. 12/06-12/27: Re-induction with FLANG chemotherapy. Repeat bone marrow biopsy negative for residual AML. Patient in Complete Remission 01/06-01/10: C1 consolidation chemotherapy with Mell-C. 02/17-02/21: C2 consolidation chemotherapy with MELL-C. 03/25-03/30: C3 consolidation chemotherapy with MELL-C 04/28-05/02: C4 consolidation chemo with MELL-C (2) Fever Status: Acute Plan: --BC + on 10/24 and 10/27; BC no growth on 11/01, 11/02, 11/13 --port removed 11/03. culture showed no growt --ID following --on IV Zosyn + Diflucan (3) Diabetes Status: Acute Plan: --on SSI Novolog medium dose Assessment 46 y/o male admitted for salvage chemotherapy for relapsed AML, now in remission , waiting on count recovery Problem Qualifiers (1) Fever: Qualified Code: R50.9 - Fever, unspecified fever cause (2) Diabetes: Qualified Code: E11.9 - Type 2 diabetes mellitus without complication, without long-term current use of insulin Alexandra Olea MD November 21, 2016 07:35
[2016-11-21 07:38] LABS: BANDS 9 % (0-6); BASOPHILS 2 % (0-2); CORRECTED NUCLEATED RBC 1 /100 WBC (0-0); MYELOCYTES 2 % (0-0); NEUTROPHIL # MANUAL DIFF 0.5 TH/MM3 (1.8-7.7); POLYS (SEG NEUTROPHILS) 55 % (16-70); WBC DIFF SAMPLE 100
[2016-11-21 07:39] LABS: PLATELET ESTIMATE SMEAR LOW (NORMAL); PLATELET MORPHOLOGY NORMAL (NORMAL); SCAN/DIFF FINAL DIFF MANUAL
[2016-11-21] MEDS: SODIUM CHLORIDE 0.9% FLUSH 10 ML FLUSH IVF SCH (09:00)
[2016-11-21] MEDS: amLODIPine BESYLATE 5 MG TAB PO SCH (09:00)
[2016-11-21] MEDS: SERTRALINE HCL 50 MG TAB PO SCH (09:50)
[2016-11-21] MEDS: POTASSIUM CHLORIDE 10 MEQ CAP PO SCH ×4 (09:50→21:45)
[2016-11-21] MEDS: LISINOPRIL 10 MG TAB PO SCH (09:50)
[2016-11-21] MEDS: LOPERAMIDE HCL 2 MG CAP PO PRN (09:50)
[2016-11-21] MEDS: NYSTAT/DIPHENHY/LIDO MOUTHWASH (Adult) 120ML SWISH-SWAL SCH ×4 (09:50→21:46)
[2016-11-21] MEDS: ACETAMINOPHEN 325 MG TAB PO PRN (09:51)
[2016-11-21 11:00] VITALS: BP 111/67; PULSE 86; RESP 15; TEMP 98.1; O2SAT 94
[2016-11-21] MEDS: SODIUM CHLORIDE 0.9% FLUSH 10 ML FLUSH IVF PRN (11:46)
[2016-11-21] MEDS: FLUCONAZOLE 200 MG TAB PO SCH (13:15)
[2016-11-21 16:00] VITALS: BP 121/84; PULSE 83; RESP 15; TEMP 94.6; O2SAT 98
[2016-11-21 20:00] VITALS: BP 147/97; PULSE 85; RESP 18; TEMP 98; O2SAT 99
[2016-11-21] MEDS: ATENOLOL 100 MG TAB PO SCH (21:45)
[2016-11-21] MEDS: DIAZEPAM 10 MG TAB PO PRN (21:46)
--- NOTE | 2016-11-21 22:42 | HHI.IDPN ---
Subjective Subjective Remarks Delayed entry- pt seen earlier today around 1830 Improving counts but still < 500 no fever cont to have intermittent diarrhea no rash Antibiotics zosyn Allergies: Coded Allergies: Vancomycin (Verified Adverse Reaction, Severe, Diarrhea, 10/29/16) Per pt and his record review he uneventfully took IV vancomycin in December 2015. In october 16-2016 he developped severe diarrhea during vancomycin use, no rash per his account. Objective . Vital Signs Date Time Temp Pulse Resp B/P Pulse Ox O2 Delivery O2 Flow Rate FiO2 11/21/16 20:00 98.0 85 18 147/97 99 11/21/16 16:00 94.6 83 15 121/84 98 11/21/16 11:00 98.1 86 15 111/67 94 11/21/16 07:00 97.7 75 15 118/74 96 11/21/16 05:00 97.8 83 16 124/86 99 11/21/16 00:00 98.0 88 18 136/82 96 11/20/16 11/20/16 11/21/16 15:00 23:00 07:00 Intake Total 580 ml 720 ml 720 ml Balance 580 ml 720 ml 720 ml Intake Oral 480 ml 720 ml 720 ml IV Total 100 ml # Voids 5 2 # Bowel Movements 1 . Laboratory Tests Test 11/20/16 11/21/16 05:56 05:00 White Blood Count 0.5 TH/MM3 0.7 TH/MM3 Red Blood Count 3.07 MIL/MM3 3.00 MIL/MM3 Hemoglobin 8.2 GM/DL 7.9 GM/DL Hematocrit 23.1 % 22.8 % Mean Corpuscular Volume 75.4 FL 75.9 FL Mean Corpuscular Hemoglobin 26.6 PG 26.4 PG Mean Corpuscular Hemoglobin 35.3 % 34.7 % Concent Red Cell Distribution Width 13.4 % 13.5 % Platelet Count 16 TH/MM3 13 TH/MM3 Mean Platelet Volume 7.5 FL 8.2 FL Neutrophils (%) (Auto) % % Lymphocytes (%) (Auto) % % Monocytes (%) (Auto) % % Eosinophils (%) (Auto) % % Basophils (%) (Auto) % % Neutrophils # (Auto) TH/MM3 TH/MM3 Lymphocytes # (Auto) TH/MM3 TH/MM3 Monocytes # (Auto) TH/MM3 TH/MM3 Eosinophils # (Auto) TH/MM3 TH/MM3 Basophils # (Auto) TH/MM3 TH/MM3 CBC Comment AUTO DIFF AUTO DIFF Differential Total Cells 50 100 Counted Neutrophils % (Manual) 60 % 55 % Band Neutrophils % 4 % 9 % Lymphocytes % 12 % 6 % Monocytes % 22 % 26 % Neutrophils # (Manual) 0.3 TH/MM3 0.5 TH/MM3 Myelocytes 2 % 2 % Nucleated Red Blood Cells 4 /100 WBC 1 /100 WBC Differential Comment FINAL DIFF FINAL DIFF MANUAL MANUAL Platelet Estimate RARE LOW Platelet Morphology Comment NORMAL NORMAL Basophils % 2 % Laboratory Tests Test 11/20/16 11/21/16 05:56 05:00 Sodium Level 138 MEQ/L 138 MEQ/L Potassium Level 3.6 MEQ/L 3.6 MEQ/L Chloride Level 100 MEQ/L 98 MEQ/L Carbon Dioxide Level 32.0 MEQ/L 32.5 MEQ/L Anion Gap 6 MEQ/L 8 MEQ/L Blood Urea Nitrogen 17 MG/DL 18 MG/DL Creatinine 0.90 MG/DL 1.00 MG/DL Estimat Glomerular Filtration 90 ML/MIN 80 ML/MIN Rate Random Glucose 121 MG/DL 144 MG/DL Calcium Level 9.7 MG/DL 9.7 MG/DL Imaging Last Impressions Lumbar Spine MRI 11/13/16 0000 Signed Impressions: Service Date/Time: November 20:55 - CONCLUSION: Tiny central annular tear dorsally at L4-5. No evidence of malignant changes in the lumbar spine and no significant anatomic compromise. Eric Santiago MD Thoracic Spine X-Ray 11/12/16 0000 Signed Impressions: Service Date/Time: Saturday, November 12, 2016 12:16 - CONCLUSION: Scattered degenerative changes and osteopenia. Jp Her MD Sacrum X-Ray 11/12/16 0000 Signed Impressions: Service Date/Time: Saturday, November 12, 2016 20:10 - CONCLUSION: Unremarkable examination of the sacrum. Eric Santiago MD Lumbar Spine X-Ray 11/12/16 0000 Signed Impressions: Service Date/Time: Saturday, November 12, 2016 20:09 - CONCLUSION: Mild degenerative changes. No acute bony findings. Eric Santiago MD PICC Line Insertion 11/03/16 1135 Signed Impressions: Service Date/Time: Thursday, November 03, 2016 15:49 - CONCLUSION: 1. Uncomplicated central venous Power PICC line placement. 2. The PICC line can be used immediately. Isai Healy Jr., MD Port Line Revision 11/03/16 0000 Signed Impressions: Service Date/Time: Thursday, November 03, 2016 00:00 - CONCLUSION: Uncomplicated port removal as above. The tip of the catheter was sent for culture. Isai Healy Jr., MD Chest X-Ray 11/03/16 Signed Impressions: Service Date/Time: Thursday, November 03, 2016 18:12 - CONCLUSION: 1. No pneumonia or other acute cardiopulmonary disease. 2. Right IJ Vaaitl-v-Ldst catheter out in the interim. There is now a right arm PICC with tip in the superior vena cava. Eric Ontiveros MD Head CT 10/14/16 Signed Impressions: Service Date/Time: Friday, October 14, 2016 09:52 - CONCLUSION: 1. No acute intracranial abnormality is identified. 2. Minimal mucoperiosteal thickening in the left maxillary and ethmoid sinus. Eirc Collazo MD Physical Exam CONSTITUTIONAL/GENERAL: This is an adequately nourished patient, in no apparent distress. looks fairly well TUBES/LINES/DRAINS: PORT in R chest - site OK, SKIN: No jaundice, rash resolved EYES: Pupils equal and round and reactive. No injection or drainage. Fundi not examined. CARDIOVASCULAR: Regular rate and rhythm without murmurs, gallops, or rubs. RESPIRATORY/CHEST: Symmetric, unlabored respirations. Clear to auscultation. Breath sounds equal bilaterally. No wheezes, rales, or rhonchi. GASTROINTESTINAL: Abdomen soft, non-tender, not distended. No hepato- splenomegaly, or palpable masses. No guarding. Bowel sounds present. MUSCULOSKELETAL: Extremities without clubbing, cyanosis, or edema. NEUROLOGICAL: awake and alert . Normal speech. Follows commands. Moves all extremities. PSYCHIATRIC: No obvious anxiety/depression. 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 recurrent diarrhea Intermittent fever - resolved Worsening renal fnx - resolved - -cont zosyn - will dc abx when ANC >=500 x 2 days and afebrile/no other e/o infx -fu repeat blood clx if new fever dw Hem/Onc team dw pt Laura Galarza MD November 21, 2016 22:42
[2016-11-22] VITALS (7 sets, daily range): BP systolic 92–132; BP diastolic 65–87; PULSE 75–91; RESP 14–18; TEMP 97.6–98.6; O2SAT 94–98
[2016-11-22] MEDS: INSULIN ASPART SUPPLEMENTAL SCALE SQ SCH (05:37)
[2016-11-22] MEDS: PIPERACIL-TAZO 3.375 GM PREMIX 50 ML IV SCH ×4 (05:41→23:07)
[2016-11-22 07:13] LABS: AUTOMATED NEUTROPHIL # 0.5 TH/MM3 (1.8-7.7); BASOPHIL % 0.4 % (0.0-2.0); EOSINOPHIL % 0.1 % (0.0-4.0); LYMPH % 3.8 % (9.0-44.0); MEAN CELL VOLUME 74.6 FL (80.0-100.0); MEAN CORPUSCULAR HEMOGLOBIN 26.9 PG (27.0-34.0); MONO % 33.1 % (0.0-8.0); NEUT % 62.6 % (16.0-70.0); PLATELET COUNT 22 TH/MM3 (150-450); RED BLOOD COUNT 2.82 MIL/MM3 (4.50-5.90); RED CELL DISTRIBUTION WIDTH 13.1 % (11.6-17.2); WHITE BLOOD COUNT 0.7 TH/MM3 (4.0-11.0)
[2016-11-22 07:20] LABS: HEMO FLAGS AUTO DIFF
[2016-11-22 07:32] LABS: BICARBONATE 31.8 MEQ/L (21.0-32.0); POTASSIUM 3.9 MEQ/L (3.5-5.1)
[2016-11-22] MEDS: POTASSIUM CHLORIDE 10 MEQ CAP PO SCH (08:41)
[2016-11-22] MEDS: SERTRALINE HCL 50 MG TAB PO SCH (08:41)
[2016-11-22] MEDS: SODIUM CHLORIDE 0.9% FLUSH 10 ML FLUSH IVF SCH (08:42)
[2016-11-22] MEDS: LISINOPRIL 10 MG TAB PO SCH (08:46)
[2016-11-22] MEDS: NYSTAT/DIPHENHY/LIDO MOUTHWASH (Adult) 120ML SWISH-SWAL SCH (08:47)
[2016-11-22] MEDS: amLODIPine BESYLATE 5 MG TAB PO SCH (08:47)
[2016-11-22 08:51] LABS: BANDS 9 % (0-6); METAMYELOCYTES 1 % (0-1); NEUTROPHIL # MANUAL DIFF 0.4 TH/MM3 (1.8-7.7); OVALOCYTES 1+ (NORMAL); PLATELET ESTIMATE SMEAR LOW (NORMAL); PLATELET MORPHOLOGY NORMAL (NORMAL); POLYS (SEG NEUTROPHILS) 50 % (16-70); SCAN/DIFF FINAL DIFF MANUAL; WBC DIFF SAMPLE 100
--- NOTE | 2016-11-22 10:24 | PD.ONC.PN ---
Subjective Subjective Remarks Afebrile overnight. Patient feeling well today. Still having occasional loose stools. Objective Data Date Time Temp Pulse Resp B/P Pulse Ox O2 Delivery O2 Flow Rate FiO2 11/22/16 08:49 77 110/77 11/22/16 08:00 98.2 78 16 92/65 96 11/22/16 04:00 98.3 89 18 112/69 98 11/22/16 00:00 98.5 91 18 126/87 97 11/21/16 20:00 98.0 85 18 147/97 99 11/21/16 16:00 94.6 83 15 121/84 98 11/21/16 11:00 98.1 86 15 111/67 94 11/22/16 11/22/16 11/22/16 07:00 15:00 23:00 Intake Total 480 ml 600 ml Balance 480 ml 600 ml Result Diagram: 11/22/16 0530 11/22/16 0530 Laboratory Results Laboratory Tests Test 11/22/16 05:30 White Blood Count 0.7 TH/MM3 Red Blood Count 2.82 MIL/MM3 Hemoglobin 7.6 GM/DL Hematocrit 21.0 % Mean Corpuscular Volume 74.6 FL Mean Corpuscular Hemoglobin 26.9 PG Mean Corpuscular Hemoglobin 36.0 % Concent Red Cell Distribution Width 13.1 % Platelet Count 22 TH/MM3 Mean Platelet Volume 7.8 FL Neutrophils (%) (Auto) 62.6 % Lymphocytes (%) (Auto) 3.8 % Monocytes (%) (Auto) 33.1 % Eosinophils (%) (Auto) 0.1 % Basophils (%) (Auto) 0.4 % Neutrophils # (Auto) 0.5 TH/MM3 Lymphocytes # (Auto) 0.0 TH/MM3 Monocytes # (Auto) 0.2 TH/MM3 Eosinophils # (Auto) 0.0 TH/MM3 Basophils # (Auto) 0.0 TH/MM3 CBC Comment AUTO DIFF Differential Total Cells 100 Counted Neutrophils % (Manual) 50 % Band Neutrophils % 9 % Lymphocytes % 5 % Monocytes % 35 % Neutrophils # (Manual) 0.4 TH/MM3 Metamyelocytes 1 % Differential Comment FINAL DIFF MANUAL Platelet Estimate LOW Platelet Morphology Comment NORMAL Ovalocytes 1+ Sodium Level 139 MEQ/L Potassium Level 3.9 MEQ/L Chloride Level 98 MEQ/L Carbon Dioxide Level 31.8 MEQ/L Anion Gap 9 MEQ/L Blood Urea Nitrogen 15 MG/DL Creatinine 0.88 MG/DL Estimat Glomerular Filtration 92 ML/MIN Rate Random Glucose 159 MG/DL Calcium Level 9.6 MG/DL Administered Medications Medications (Trade) Dose Ordered Sig/Génesis Route PRN Reason Start Time Stop Time Status Last Admin Dose Admin Acetaminophen (Tylenol) 650 mg Q4H PRN PO TEMP> 100.5F 09/25/16 08:45 11/21/16 09:51 Heparin Sodium (Porcine) (Heparin Central Flush) 500 units UNSCH IVF 09/25/16 08:45 10/30/16 20:03 Sodium Chloride (NS Flush) 5 ml UNSCH PRN IVF SEE PROTOCOL 09/25/16 08:45 11/21/16 11:46 Heparin Sodium (Porcine) (Heparin Central Flush) 250 units UNSCH PRN IVF SEE PROTOCOL 09/25/16 08:45 11/18/16 23:19 Alteplase, Recombinant 2 mg 2 mg UNSCH PRN IVF SEE LABEL COMMENTS 09/25/16 10:15 10/10/16 09:09 Ondansetron HCl/ Dextrose (Zofran Inj/D5W Inj) 54 ml @ 216 mls/hr Q8H PRN IV PUSH NAUSEA OR VOMITING 09/25/16 10:30 11/13/16 23:59 Docusate Sodium (Colace) 100 mg TID PO 09/25/16 18:00 Hold 10/19/16 13:32 Atenolol (Tenormin) 100 mg HS PO 10/14/16 21:00 11/21/16 21:45 Amlodipine Besylate (Norvasc) 5 mg DAILY PO 10/15/16 09:00 11/21/16 09:00 Diazepam (Valium) 5 mg Q12H PRN PO MILD ANXIETY 10/20/16 11:15 11/15/16 11:10 Diazepam (Valium) 10 mg HS PRN PO INSOMNIA 10/21/16 08:30 11/21/16 21:46 Loperamide HCl (Imodium) 2 mg UNSCH PRN PO DIARRHEA 10/22/16 09:00 11/21/16 09:50 Lisinopril (Prinivil) 10 mg DAILY PO 10/26/16 09:00 11/22/16 08:46 Metoclopramide HCl (Reglan) 5 mg Q8H PRN PO NAUSEA 10/27/16 07:15 10/27/16 07:25 Sodium Chloride (NS Flush) DAILY IVF 11/04/16 09:00 11/21/16 09:00 Heparin Sodium (Porcine) (Heparin Central Flush) DAILY IV FLUSH 11/04/16 09:00 11/18/16 09:58 Sodium Chloride (NS Flush) UNSCH PRN IVF SEE PROTOCOL 11/03/16 17:15 11/19/16 05:50 Heparin Sodium (Porcine) (Heparin Central Flush) UNSCH PRN IV FLUSH SEE PROTOCOL 11/03/16 17:15 11/19/16 05:51 Sodium Chloride (NS Flush) UNSCH PRN IVF SEE PROTOCOL 11/03/16 17:15 11/11/16 05:12 Acetaminophen (Tylenol) 650 mg Q4H PRN PO SEE LABEL COMMENTS 11/04/16 15:45 11/17/16 13:56 Diphenhydramine HCl 25 mg 25 mg Q4H PRN PO SEE LABEL COMMENTS 11/04/16 15:45 11/17/16 13:56 Piperacillin Sod/ Tazobactam Sod (Zosyn 3.375 Gm Premix) 50 ml @ 100 mls/hr Q6H IV 11/08/16 23:00 11/22/16 05:41 Simethicone (Phazyme Chew) 125 mg Q8HR PRN PO GAS RETENTION 11/11/16 17:30 11/11/16 18:06 Oxycodone HCl (Roxicodone) 10 mg Q4H PRN PO pain 1-10 11/12/16 20:00 11/21/16 21:46 Multi-Ingredient Mouthwash/Gargle (Magic Mouthwash Adult Liq) 5 ml QID SWISH-SWAL 11/17/16 13:00 11/22/16 08:47 Potassium Chloride (KCl) 10 meq QID PO 11/17/16 18:00 11/22/16 08:41 Fluconazole (Diflucan) 400 mg Q24H PO 11/18/16 14:00 11/21/16 13:15 Sertraline HCl (Zoloft) 50 mg DAILY PO 11/20/16 12:45 11/22/16 08:41 Objective Remarks GENERAL: Middle aged male, upright in bed in nad SKIN: Warm and dry. HEAD: Normocephalic. EYES: No injection or drainage. NECK: Supple, trachea midline. CARDIOVASCULAR: Regular rate and rhythm RESPIRATORY: Breath sounds equal bilaterally. No accessory muscle use. GASTROINTESTINAL: Abdomen soft, non-tender, nondistended. EXTREMITIES: No cyanosis NEUROLOGICAL: awake and alert, normal speech. Assessment/Plan Problem List: (1) AML (acute myeloid leukemia) Status: Acute Plan: 11/22: monitor CBC. no transfusion today 11/21 WBC is rising. today is 0.7. Diff is pending. PRBC and plat tx today. continue present antibiotics. 11/20/16: no transfusion today. pleased WBC continuing to rise. 11/19/16: Will give HLA matched platelets today for platelet level of 13k. 11/18/16: Thrush mildly improved. Continue Abx. No transfusion today. 11/17/16: give 1 unit pRBC. continue to wean Prednisone (currently 5mg PO daily) . start Diflucan and Magic mouthwash for thrush. continue Zosyn. await marrow recovery. 11/15/16: give 1 unit platelets. check ECG/troponin for cp--more likely musculoskeletal. continue to wean prednisone 11/14/16: give 2 units pRBC 1 unit platelets. continue abx. continue Prednisone at 10mg today. continue to wean as tolerated. 11/13/16: No transfusion today. Spoke with Dr Galarza re: fever spike overnight. Plan to check a stool for Cdiff as he has been having increased diarrhea. Will put him back on Vanco if persistent fevers. Continue to wean steroids. Continue Zosyn. 11/12/16: Will give platelets today for level of 17K. Continue to wean steroids. Flank and back pain likely related to bone marrow activity. Thoracic X-ray showed osteopenia and degenerative changes. 11/11/16: Remains afebrile. Will transfuse 1 unit platelets today. Prednisone cut to 20mg po daily. Encouraged pt to find activities to do to pass the time. 11/10/16 PRBC today. WBC still low. On prednisone for rash. Rash has resolved. No more fevers. 11/09: Change SS to medium dosing while on steroids. Rash improving. Will change to po prednisone. 11/08: Platelet transfusion today. Rash improving with steroids. 11/07 Still has rash. D/w Dr Galarza. She change the a/b D/W BMT team at [facility]. He is now back in remission. Monitor cbc 10/15 D20/ start second cycle of CLAG-M today. D/W side effects and increase morbidity and mortality with the second cycle. He agreed . I will be OOT . Dr Newell will see him till thursday. 10/14: D19. patient started to receive Clarabine but the pump malfunction causing the chemo to spill on the floor. the chemo is being STAT ordered again and will arrive tomorrow morning. 10/13: bone marrow flow shows 70% blasts. d/w patient, repeating induction with CLAG-M chemotherapy or enrolling in a clinical trial. patient would like to try a second induction with CLAG-M. will give Neupogen today and start tomorrow. 10/12: Mildly tachycardic today in the 110's, but no fever. PRBC x 2 ordered today. 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 Will monitor blood counts, heart rate. Plan for repeat BMB on this upcoming week. 10/09: bone marrow biopsy today. 1 unit platelets, 2 units pRBC. spiked fever 103F. cefepime started. spoke with ID, who advised me to start Daptomycin and Micafungin. transferred to ICU after becoming tachy in 140s 09/26: Start on CLAG-M chemotherapy for relapsed AML. Received Neupogen yesterday. He spiked a fever this afternoon of 101.3. BC, UA, and CXR ordered. Will start pt on Cefepime. Await BC results. History: 11/04: AML Diagnosis made. 46XY, +NPM1 mutation detected, FLT3 negative-- indicates favorable prognosis. 11/05-11/28: Initial induction with MELL-C and idarubicin (7+3). STAT Leukapheresis due to leukostasis. On D25, repeat bone marrow showed residual leukemia. 12/06-12/27: Re-induction with FLANG chemotherapy. Repeat bone marrow biopsy negative for residual AML. Patient in Complete Remission 01/06-01/10: C1 consolidation chemotherapy with Mell-C. 02/17-02/21: C2 consolidation chemotherapy with MELL-C. 03/25-03/30: C3 consolidation chemotherapy with MELL-C 04/28-05/02: C4 consolidation chemo with MELL-C (2) Fever Status: Acute Plan: --BC + on 10/24 and 10/27; BC no growth on 11/01, 11/02, 11/13 --port removed 11/03. culture showed no growt --ID following --on IV Zosyn + Diflucan (3) Diabetes Status: Acute Plan: --on Metformin Assessment 46 y/o male admitted for salvage chemotherapy for relapsed AML, now in remission , waiting on count recovery Plan 1. stop SSI. start Metformin 2. monitor CBC 3. hopefully d/c early next week Attending Statement The exam, history, and the medical decision-making described in the above note were completed with the assistance of the mid-level provider. I reviewed and agree with the findings presented. I attest that I had a [id number] encounter with the patient on the same day, and personally performed and documented my assessment and findings in the medical record. Pt seen and examined. ANC 500, tired, with alopecia, also shaved her hair. No new complaints. Continue support, looks like bone marrow recovery. Problem Qualifiers (1) Fever: Qualified Code: R50.9 - Fever, unspecified fever cause (2) Diabetes: Qualified Code: E11.9 - Type 2 diabetes mellitus without complication, without long-term current use of insulin Janet Holm November 22, 2016 10:24 Kavitha Brown MD November 22, 2016 16:24
[2016-11-22] MEDS: FLUCONAZOLE 200 MG TAB PO SCH (14:24)
[2016-11-22] MEDS: metFORMIN HCL 850 MG TAB PO SCH (17:59)
[2016-11-22] MEDS: DIAZEPAM 10 MG TAB PO PRN (20:15)
[2016-11-22] MEDS: ATENOLOL 100 MG TAB PO SCH (20:15)
[2016-11-23] VITALS (7 sets, daily range): BP systolic 109–135; BP diastolic 64–83; PULSE 83–96; RESP 17–20; TEMP 97.8–98.6; O2SAT 97–100
[2016-11-23] MEDS: PIPERACIL-TAZO 3.375 GM PREMIX 50 ML IV SCH (05:26)
[2016-11-23] MEDS: SODIUM CHLORIDE 0.9% FLUSH 10 ML FLUSH IVF SCH (08:14)
[2016-11-23] MEDS: amLODIPine BESYLATE 5 MG TAB PO SCH (08:47)
[2016-11-23] MEDS: SERTRALINE HCL 50 MG TAB PO SCH (08:47)
[2016-11-23] MEDS: metFORMIN HCL 850 MG TAB PO SCH ×2 (08:47→17:14)
[2016-11-23] MEDS: LISINOPRIL 10 MG TAB PO SCH (08:47)
[2016-11-23 08:59] LABS: HEMATOCRIT 21.5 % (39.0-51.0); MEAN CELL VOLUME 75.8 FL (80.0-100.0); MEAN CORPUSCULAR HEMOGLOBIN 25.9 PG (27.0-34.0); MEAN CORPUSCULAR HGB CONC 34.2 % (32.0-36.0); RED BLOOD COUNT 2.84 MIL/MM3 (4.50-5.90); RED CELL DISTRIBUTION WIDTH 13.5 % (11.6-17.2); WHITE BLOOD COUNT 0.9 TH/MM3 (4.0-11.0)
[2016-11-23 09:05] LABS: HEMO FLAGS AUTO DIFF
[2016-11-23 09:06] LABS: BICARBONATE 32.3 MEQ/L (21.0-32.0); POTASSIUM 3.6 MEQ/L (3.5-5.1)
[2016-11-23 09:08] LABS: PLATELET COUNT 18 TH/MM3 (150-450)
[2016-11-23 09:50] LABS: BANDS 20 % (0-6); BASOPHILS 1 % (0-2); CORRECTED NUCLEATED RBC 1 /100 WBC (0-0); METAMYELOCYTES 1 % (0-1); NEUTROPHIL # MANUAL DIFF 0.6 TH/MM3 (1.8-7.7); PLATELET ESTIMATE SMEAR RARE (NORMAL); PLATELET MORPHOLOGY NORMAL (NORMAL); POLYS (SEG NEUTROPHILS) 48 % (16-70); WBC DIFF SAMPLE 100
[2016-11-23 09:51] LABS: SCAN/DIFF FINAL DIFF MANUAL
[2016-11-23] MEDS ORDERED: SODIUM CHLOR 0.9% 250 ML INJ 250 ML IV ONE (10:00)
--- NOTE | 2016-11-23 10:10 | PD.ONC.PN ---
Subjective Subjective Remarks Afebrile overnight. Patient feeling well. Still with occasional loose stools. No rash. Objective Data Date Time Temp Pulse Resp B/P Pulse Ox O2 Delivery O2 Flow Rate FiO2 11/23/16 07:50 98.4 84 20 118/79 98 11/23/16 04:00 98.0 85 17 109/70 99 11/23/16 00:00 97.8 84 18 114/77 98 11/22/16 20:00 97.6 86 17 107/81 98 11/22/16 16:00 98.6 86 16 132/70 94 11/22/16 12:00 97.8 75 14 117/65 97 Result Diagram: 11/23/16 0530 11/23/16 0530 Laboratory Results Laboratory Tests Test 11/23/16 05:30 White Blood Count 0.9 TH/MM3 Red Blood Count 2.84 MIL/MM3 Hemoglobin 7.4 GM/DL Hematocrit 21.5 % Mean Corpuscular Volume 75.8 FL Mean Corpuscular Hemoglobin 25.9 PG Mean Corpuscular Hemoglobin 34.2 % Concent Red Cell Distribution Width 13.5 % Platelet Count 18 TH/MM3 Mean Platelet Volume 8.0 FL Neutrophils (%) (Auto) % Lymphocytes (%) (Auto) % Monocytes (%) (Auto) % Eosinophils (%) (Auto) % Basophils (%) (Auto) % Neutrophils # (Auto) TH/MM3 Lymphocytes # (Auto) TH/MM3 Monocytes # (Auto) TH/MM3 Eosinophils # (Auto) TH/MM3 Basophils # (Auto) TH/MM3 CBC Comment AUTO DIFF Differential Total Cells 100 Counted Neutrophils % (Manual) 48 % Band Neutrophils % 20 % Lymphocytes % 8 % Monocytes % 22 % Basophils % 1 % Neutrophils # (Manual) 0.6 TH/MM3 Metamyelocytes 1 % Nucleated Red Blood Cells 1 /100 WBC Differential Comment FINAL DIFF MANUAL Platelet Estimate RARE Platelet Morphology Comment NORMAL Sodium Level 138 MEQ/L Potassium Level 3.6 MEQ/L Chloride Level 97 MEQ/L Carbon Dioxide Level 32.3 MEQ/L Anion Gap 9 MEQ/L Blood Urea Nitrogen 15 MG/DL Creatinine 0.97 MG/DL Estimat Glomerular Filtration 83 ML/MIN Rate Random Glucose 186 MG/DL Calcium Level 9.8 MG/DL Administered Medications Medications (Trade) Dose Ordered Sig/Génesis Route PRN Reason Start Time Stop Time Status Last Admin Dose Admin Acetaminophen (Tylenol) 650 mg Q4H PRN PO TEMP> 100.5F 09/25/16 08:45 11/21/16 09:51 Heparin Sodium (Porcine) (Heparin Central Flush) 500 units UNSCH IVF 09/25/16 08:45 10/30/16 20:03 Sodium Chloride (NS Flush) 5 ml UNSCH PRN IVF SEE PROTOCOL 09/25/16 08:45 11/21/16 11:46 Heparin Sodium (Porcine) (Heparin Central Flush) 250 units UNSCH PRN IVF SEE PROTOCOL 09/25/16 08:45 11/18/16 23:19 Alteplase, Recombinant 2 mg 2 mg UNSCH PRN IVF SEE LABEL COMMENTS 09/25/16 10:15 10/10/16 09:09 Ondansetron HCl/ Dextrose (Zofran Inj/D5W Inj) 54 ml @ 216 mls/hr Q8H PRN IV PUSH NAUSEA OR VOMITING 09/25/16 10:30 11/13/16 23:59 Docusate Sodium (Colace) 100 mg TID PO 09/25/16 18:00 Hold 10/19/16 13:32 Atenolol (Tenormin) 100 mg HS PO 10/14/16 21:00 11/22/16 20:15 Amlodipine Besylate (Norvasc) 5 mg DAILY PO 10/15/16 09:00 11/23/16 08:47 Diazepam (Valium) 5 mg Q12H PRN PO MILD ANXIETY 10/20/16 11:15 11/15/16 11:10 Diazepam (Valium) 10 mg HS PRN PO INSOMNIA 10/21/16 08:30 11/22/16 20:15 Loperamide HCl (Imodium) 2 mg UNSCH PRN PO DIARRHEA 10/22/16 09:00 11/21/16 09:50 Lisinopril (Prinivil) 10 mg DAILY PO 10/26/16 09:00 11/23/16 08:47 Metoclopramide HCl (Reglan) 5 mg Q8H PRN PO NAUSEA 10/27/16 07:15 10/27/16 07:25 Sodium Chloride (NS Flush) DAILY IVF 11/04/16 09:00 11/21/16 09:00 Heparin Sodium (Porcine) (Heparin Central Flush) DAILY IV FLUSH 11/04/16 09:00 11/18/16 09:58 Sodium Chloride (NS Flush) UNSCH PRN IVF SEE PROTOCOL 11/03/16 17:15 11/19/16 05:50 Heparin Sodium (Porcine) (Heparin Central Flush) UNSCH PRN IV FLUSH SEE PROTOCOL 11/03/16 17:15 11/19/16 05:51 Sodium Chloride (NS Flush) UNSCH PRN IVF SEE PROTOCOL 11/03/16 17:15 11/11/16 05:12 Acetaminophen (Tylenol) 650 mg Q4H PRN PO SEE LABEL COMMENTS 11/04/16 15:45 11/17/16 13:56 Diphenhydramine HCl (Benadryl) 25 mg Q4H PRN PO SEE LABEL COMMENTS 11/04/16 15:45 11/17/16 13:56 Simethicone (Phazyme Chew) 125 mg Q8HR PRN PO GAS RETENTION 11/11/16 17:30 11/11/16 18:06 Oxycodone HCl (Roxicodone) 10 mg Q4H PRN PO pain 1-10 11/12/16 20:00 11/22/16 20:16 Sertraline HCl (Zoloft) 50 mg DAILY PO 11/20/16 12:45 11/23/16 08:47 Metformin HCl (Glucophage) 850 mg BIDPC PO 11/22/16 18:00 11/23/16 08:47 Objective Remarks GENERAL: Middle aged male, lying in bed in nad SKIN: Warm and dry. PICC line in place, right arm HEAD: Normocephalic. EYES: No injection or drainage. NECK: Supple, trachea midline. CARDIOVASCULAR: Regular rate and rhythm RESPIRATORY: Breath sounds equal bilaterally. No accessory muscle use. GASTROINTESTINAL: Abdomen soft, non-tender, nondistended. EXTREMITIES: No cyanosis NEUROLOGICAL: awake and alert, normal speech. moving all extremities. Assessment/Plan Problem List: (1) AML (acute myeloid leukemia) Status: Acute Plan: 11/23: 1 unit pRBC today. ANC=0.6, will stop Zosyn per ID recommendations. 11/22: monitor CBC. no transfusion today 11/21 WBC is rising. today is 0.7. Diff is pending. PRBC and plat tx today. continue present antibiotics. 11/20/16: no transfusion today. pleased WBC continuing to rise. 11/19/16: Will give HLA matched platelets today for platelet level of 13k. 11/18/16: Thrush mildly improved. Continue Abx. No transfusion today. 11/17/16: give 1 unit pRBC. continue to wean Prednisone (currently 5mg PO daily) . start Diflucan and Magic mouthwash for thrush. continue Zosyn. await marrow recovery. 11/15/16: give 1 unit platelets. check ECG/troponin for cp--more likely musculoskeletal. continue to wean prednisone 11/14/16: give 2 units pRBC 1 unit platelets. continue abx. continue Prednisone at 10mg today. continue to wean as tolerated. 11/13/16: No transfusion today. Spoke with Dr Galarza re: fever spike overnight. Plan to check a stool for Cdiff as he has been having increased diarrhea. Will put him back on Vanco if persistent fevers. Continue to wean steroids. Continue Zosyn. 11/12/16: Will give platelets today for level of 17K. Continue to wean steroids. Flank and back pain likely related to bone marrow activity. Thoracic X-ray showed osteopenia and degenerative changes. 11/11/16: Remains afebrile. Will transfuse 1 unit platelets today. Prednisone cut to 20mg po daily. Encouraged pt to find activities to do to pass the time. 11/10/16 PRBC today. WBC still low. On prednisone for rash. Rash has resolved. No more fevers. 11/09: Change SS to medium dosing while on steroids. Rash improving. Will change to po prednisone. 11/08: Platelet transfusion today. Rash improving with steroids. 11/07 Still has rash. D/w Dr Galarza. She change the a/b D/W BMT team at [facility]. He is now back in remission. Monitor cbc 10/15 D20/1 start second cycle of CLAG-M today. D/W side effects and increase morbidity and mortality with the second cycle. He agreed . I will be OOT . Dr Newell will see him till thursday. 10/14: D19. patient started to receive Clarabine but the pump malfunction causing the chemo to spill on the floor. the chemo is being STAT ordered again and will arrive tomorrow morning. 10/13: bone marrow flow shows 70% blasts. d/w patient, repeating induction with CLAG-M chemotherapy or enrolling in a clinical trial. patient would like to try a second induction with CLAG-M. will give Neupogen today and start tomorrow. 10/12: Mildly tachycardic today in the 110's, but no fever. PRBC x 2 ordered today. 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 Will monitor blood counts, heart rate. Plan for repeat BMB on this upcoming week. 10/09: bone marrow biopsy today. 1 unit platelets, 2 units pRBC. spiked fever 103F. cefepime started. spoke with ID, who advised me to start Daptomycin and Micafungin. transferred to ICU after becoming tachy in 140s 09/26: Start on CLAG-M chemotherapy for relapsed AML. Received Neupogen yesterday. He spiked a fever this afternoon of 101.3. BC, UA, and CXR ordered. Will start pt on Cefepime. Await BC results. History: 11/04: AML Diagnosis made. 46XY, +NPM1 mutation detected, FLT3 negative-- indicates favorable prognosis. 11/05-11/28: Initial induction with MELL-C and idarubicin (7+3). STAT Leukapheresis due to leukostasis. On D25, repeat bone marrow showed residual leukemia. 12/06-12/27: Re-induction with FLANG chemotherapy. Repeat bone marrow biopsy negative for residual AML. Patient in Complete Remission 01/06-01/10: C1 consolidation chemotherapy with Mell-C. 02/17-02/21: C2 consolidation chemotherapy with MELL-C. 03/25-03/30: C3 consolidation chemotherapy with MELL-C 04/28-05/02: C4 consolidation chemo with MELL-C (2) Diabetes Status: Acute Plan: --on Metformin Assessment 46 y/o male admitted for salvage chemotherapy for relapsed AML, now in remission , waiting on count recovery Plan 1. stop Zosyn 2. 1 unit pRBC 3. monitor CBC Attending Statement The exam, history, and the medical decision-making described in the above note were completed with the assistance of the mid-level provider. I reviewed and agree with the findings presented. I attest that I had a [id number] encounter with the patient on the same day, and personally performed and documented my assessment and findings in the medical record. ANC continue to increased. Zosyn stopped. RBC being transfused. optimistic of transplant. Anticipate DC home pending Dr. Olea in AM. Continue monitor for fever. Problem Qualifiers (1) Diabetes: Qualified Code: E11.9 - Type 2 diabetes mellitus without complication, without long-term current use of insulin Janet Holm November 23, 2016 10:10 Kavitha Brown MD November 23, 2016 15:25
[2016-11-23] MEDS: LOPERAMIDE HCL 2 MG CAP PO PRN (12:08)
[2016-11-23 21:06] LABS: MEAN CORPUSCULAR HGB CONC 36.2 % (32.0-36.0)
[2016-11-23] MEDS: ATENOLOL 100 MG TAB PO SCH (21:23)
[2016-11-23] MEDS: DIAZEPAM 10 MG TAB PO PRN (23:23)
[2016-11-24 08:35] VITALS: BP 112/75; PULSE 86; RESP 20; TEMP 98.3; O2SAT 98
[2016-11-24] MEDS: amLODIPine BESYLATE 5 MG TAB PO SCH (09:06)
[2016-11-24] MEDS: metFORMIN HCL 850 MG TAB PO SCH ×2 (09:06→18:06)
[2016-11-24] MEDS: LOPERAMIDE HCL 2 MG CAP PO PRN (09:06)
[2016-11-24] MEDS: SERTRALINE HCL 50 MG TAB PO SCH (09:06)
[2016-11-24] MEDS: LISINOPRIL 10 MG TAB PO SCH (09:06)
[2016-11-24] MEDS: SODIUM CHLORIDE 0.9% FLUSH 10 ML FLUSH IVF SCH (09:08)
[2016-11-24 09:30] LABS: AUTOMATED NEUTROPHIL # 0.8 TH/MM3 (1.8-7.7); BASOPHIL % 0.8 % (0.0-2.0); HEMATOCRIT 24.7 % (39.0-51.0); LYMPH % 3.7 % (9.0-44.0); LYMPHOCYTE # 0.1 TH/MM3 (1.0-4.8); MEAN CORPUSCULAR HEMOGLOBIN 27.5 PG (27.0-34.0); MONO % 35.9 % (0.0-8.0); NEUT % 59.6 % (16.0-70.0); PLATELET COUNT 22 TH/MM3 (150-450); RED BLOOD COUNT 3.25 MIL/MM3 (4.50-5.90); RED CELL DISTRIBUTION WIDTH 14.1 % (11.6-17.2); WHITE BLOOD COUNT 1.4 TH/MM3 (4.0-11.0)
[2016-11-24 09:35] LABS: HEMO FLAGS AUTO DIFF
[2016-11-24 10:04] LABS: BICARBONATE 31.7 MEQ/L (21.0-32.0); POTASSIUM 3.5 MEQ/L (3.5-5.1)
[2016-11-24 10:26] LABS: BANDS 10 % (0-6); CORRECTED NUCLEATED RBC 2 /100 WBC (0-0); METAMYELOCYTES 1 % (0-1); MYELOCYTES 1 % (0-0); NEUTROPHIL # MANUAL DIFF 0.8 TH/MM3 (1.8-7.7); POLYS (SEG NEUTROPHILS) 47 % (16-70); WBC DIFF SAMPLE 100
[2016-11-24 10:28] LABS: PLATELET ESTIMATE SMEAR LOW (NORMAL)
[2016-11-24 10:31] LABS: PLATELET MORPHOLOGY NORMAL (NORMAL)
[2016-11-24 10:35] LABS: SCAN/DIFF FINAL DIFF MANUAL
--- NOTE | 2016-11-24 12:17 | PD.ONC.PN ---
Subjective Subjective Remarks Afebrile overnight. Patient resting comfortably in bed. He had a few loose stools overnight after he ate an egg and cheese omelet yesterday. Objective Data Date Time Temp Pulse Resp B/P Pulse Ox O2 Delivery O2 Flow Rate FiO2 11/24/16 08:35 98.3 86 20 112/75 98 11/23/16 20:00 98.0 88 17 121/83 99 11/23/16 15:50 98.6 83 20 123/78 97 Result Diagram: 11/24/16 0620 11/24/16 0620 Laboratory Results Laboratory Tests Test 11/24/16 06:20 White Blood Count 1.4 TH/MM3 Red Blood Count 3.25 MIL/MM3 Hemoglobin 8.9 GM/DL Hematocrit 24.7 % Mean Corpuscular Volume 76.0 FL Mean Corpuscular Hemoglobin 27.5 PG Mean Corpuscular Hemoglobin 36.2 % Concent Red Cell Distribution Width 14.1 % Platelet Count 22 TH/MM3 Mean Platelet Volume 8.8 FL Neutrophils (%) (Auto) 59.6 % Lymphocytes (%) (Auto) 3.7 % Monocytes (%) (Auto) 35.9 % Eosinophils (%) (Auto) 0.0 % Basophils (%) (Auto) 0.8 % Neutrophils # (Auto) 0.8 TH/MM3 Lymphocytes # (Auto) 0.1 TH/MM3 Monocytes # (Auto) 0.5 TH/MM3 Eosinophils # (Auto) 0.0 TH/MM3 Basophils # (Auto) 0.0 TH/MM3 CBC Comment AUTO DIFF Differential Total Cells 100 Counted Neutrophils % (Manual) 47 % Band Neutrophils % 10 % Lymphocytes % 7 % Monocytes % 34 % Neutrophils # (Manual) 0.8 TH/MM3 Metamyelocytes 1 % Myelocytes 1 % Nucleated Red Blood Cells 2 /100 WBC Differential Comment FINAL DIFF MANUAL Platelet Estimate LOW Platelet Morphology Comment NORMAL Sodium Level 138 MEQ/L Potassium Level 3.5 MEQ/L Chloride Level 98 MEQ/L Carbon Dioxide Level 31.7 MEQ/L Anion Gap 8 MEQ/L Blood Urea Nitrogen 14 MG/DL Creatinine 0.83 MG/DL Estimat Glomerular Filtration 99 ML/MIN Rate Random Glucose 131 MG/DL Calcium Level 9.6 MG/DL Administered Medications Medications (Trade) Dose Ordered Sig/Génesis Route PRN Reason Start Time Stop Time Status Last Admin Dose Admin Acetaminophen (Tylenol) 650 mg Q4H PRN PO TEMP> 100.5F 09/25/16 08:45 11/21/16 09:51 Heparin Sodium (Porcine) (Heparin Central Flush) 500 units UNSCH IVF 09/25/16 08:45 10/30/16 20:03 Sodium Chloride (NS Flush) 5 ml UNSCH PRN IVF SEE PROTOCOL 09/25/16 08:45 11/21/16 11:46 Heparin Sodium (Porcine) (Heparin Central Flush) 250 units UNSCH PRN IVF SEE PROTOCOL 09/25/16 08:45 11/18/16 23:19 Alteplase, Recombinant 2 mg 2 mg UNSCH PRN IVF SEE LABEL COMMENTS 09/25/16 10:15 10/10/16 09:09 Ondansetron HCl/ Dextrose (Zofran Inj/D5W Inj) 54 ml @ 216 mls/hr Q8H PRN IV PUSH NAUSEA OR VOMITING 09/25/16 10:30 11/13/16 23:59 Docusate Sodium (Colace) 100 mg TID PO 09/25/16 18:00 Hold 10/19/16 13:32 Atenolol (Tenormin) 100 mg HS PO 10/14/16 21:00 11/23/16 21:23 Amlodipine Besylate (Norvasc) 5 mg DAILY PO 10/15/16 09:00 11/24/16 09:06 Diazepam (Valium) 5 mg Q12H PRN PO MILD ANXIETY 10/20/16 11:15 11/15/16 11:10 Diazepam (Valium) 10 mg HS PRN PO INSOMNIA 10/21/16 08:30 11/23/16 23:23 Loperamide HCl (Imodium) 2 mg UNSCH PRN PO DIARRHEA 10/22/16 09:00 11/24/16 09:06 Lisinopril (Prinivil) 10 mg DAILY PO 10/26/16 09:00 11/24/16 09:06 Metoclopramide HCl (Reglan) 5 mg Q8H PRN PO NAUSEA 10/27/16 07:15 10/27/16 07:25 Sodium Chloride (NS Flush) DAILY IVF 11/04/16 09:00 11/24/16 09:08 Heparin Sodium (Porcine) (Heparin Central Flush) DAILY IV FLUSH 11/04/16 09:00 11/18/16 09:58 Sodium Chloride (NS Flush) UNSCH PRN IVF SEE PROTOCOL 11/03/16 17:15 11/19/16 05:50 Heparin Sodium (Porcine) (Heparin Central Flush) UNSCH PRN IV FLUSH SEE PROTOCOL 11/03/16 17:15 11/19/16 05:51 Sodium Chloride (NS Flush) UNSCH PRN IVF SEE PROTOCOL 11/03/16 17:15 11/11/16 05:12 Acetaminophen (Tylenol) 650 mg Q4H PRN PO SEE LABEL COMMENTS 11/04/16 15:45 11/17/16 13:56 Diphenhydramine HCl (Benadryl) 25 mg Q4H PRN PO SEE LABEL COMMENTS 11/04/16 15:45 11/17/16 13:56 Simethicone (Phazyme Chew) 125 mg Q8HR PRN PO GAS RETENTION 11/11/16 17:30 11/11/16 18:06 Oxycodone HCl (Roxicodone) 10 mg Q4H PRN PO pain 1-10 11/12/16 20:00 11/23/16 21:24 Sertraline HCl (Zoloft) 50 mg DAILY PO 11/20/16 12:45 11/24/16 09:06 Metformin HCl (Glucophage) 850 mg BIDPC PO 11/22/16 18:00 11/24/16 09:06 Objective Remarks GENERAL: Middle aged male, sitting up in bed in [place]. SKIN: Warm and dry. PICC line right arm. HEAD: Normocephalic. EYES: No injection or drainage. NECK: Supple, trachea midline. CARDIOVASCULAR: Regular rate and rhythm RESPIRATORY: Breath sounds equal bilaterally. No accessory muscle use. GASTROINTESTINAL: Abdomen soft, non-tender, nondistended. EXTREMITIES: No cyanosis NEUROLOGICAL: awake and alert, normal speech. moving extremities. Assessment/Plan Problem List: (1) AML (acute myeloid leukemia) Status: Acute Plan: 11/24: no transfusion. counts recovering. hopeful for d/c soon. 11/23: 1 unit pRBC today. ANC=0.6, will stop Zosyn per ID recommendations. 11/22: monitor CBC. no transfusion today 11/21 WBC is rising. today is 0.7. Diff is pending. PRBC and plat tx today. continue present antibiotics. 11/20/16: no transfusion today. pleased WBC continuing to rise. 11/19/16: Will give HLA matched platelets today for platelet level of 13k. 11/18/16: Thrush mildly improved. Continue Abx. No transfusion today. 11/17/16: give 1 unit pRBC. continue to wean Prednisone (currently 5mg PO daily) . start Diflucan and Magic mouthwash for thrush. continue Zosyn. await marrow recovery. 11/15/16: give 1 unit platelets. check ECG/troponin for cp--more likely musculoskeletal. continue to wean prednisone 11/14/16: give 2 units pRBC 1 unit platelets. continue abx. continue Prednisone at 10mg today. continue to wean as tolerated. 11/13/16: No transfusion today. Spoke with Dr Galarza re: fever spike overnight. Plan to check a stool for Cdiff as he has been having increased diarrhea. Will put him back on Vanco if persistent fevers. Continue to wean steroids. Continue Zosyn. 11/12/16: Will give platelets today for level of 17K. Continue to wean steroids. Flank and back pain likely related to bone marrow activity. Thoracic X-ray showed osteopenia and degenerative changes. 11/11/16: Remains afebrile. Will transfuse 1 unit platelets today. Prednisone cut to 20mg po daily. Encouraged pt to find activities to do to pass the time. 11/10/16 PRBC today. WBC still low. On prednisone for rash. Rash has resolved. No more fevers. 11/09: Change SS to medium dosing while on steroids. Rash improving. Will change to po prednisone. 11/08: Platelet transfusion today. Rash improving with steroids. 11/07 Still has rash. D/w Dr Galarza. She change the a/b D/W BMT team at [facility]. He is now back in remission. Monitor cbc 10/15 D20/1 start second cycle of CLAG-M today. D/W side effects and increase morbidity and mortality with the second cycle. He agreed . I will be OOT . Dr Newell will see him till thursday. 10/14: D19. patient started to receive Clarabine but the pump malfunction causing the chemo to spill on the floor. the chemo is being STAT ordered again and will arrive tomorrow morning. 10/13: bone marrow flow shows 70% blasts. d/w patient, repeating induction with CLAG-M chemotherapy or enrolling in a clinical trial. patient would like to try a second induction with CLAG-M. will give Neupogen today and start tomorrow. 10/12: Mildly tachycardic today in the 110's, but no fever. PRBC x 2 ordered today. 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 Will monitor blood counts, heart rate. Plan for repeat BMB on this upcoming week. 10/09: bone marrow biopsy today. 1 unit platelets, 2 units pRBC. spiked fever 103F. cefepime started. spoke with ID, who advised me to start Daptomycin and Micafungin. transferred to ICU after becoming tachy in 140s 09/26: Start on CLAG-M chemotherapy for relapsed AML. Received Neupogen yesterday. He spiked a fever this afternoon of 101.3. BC, UA, and CXR ordered. Will start pt on Cefepime. Await BC results. History: 11/04: AML Diagnosis made. 46XY, +NPM1 mutation detected, FLT3 negative-- indicates favorable prognosis. 11/05-11/28: Initial induction with MELL-C and idarubicin (7+3). STAT Leukapheresis due to leukostasis. On D25, repeat bone marrow showed residual leukemia. 12/06-12/27: Re-induction with FLANG chemotherapy. Repeat bone marrow biopsy negative for residual AML. Patient in Complete Remission 01/06-01/10: C1 consolidation chemotherapy with Mell-C. 02/17-02/21: C2 consolidation chemotherapy with MELL-C. 03/25-03/30: C3 consolidation chemotherapy with MELL-C 04/28-05/02: C4 consolidation chemo with MELL-C (2) Diabetes Status: Acute Plan: --on Metformin Assessment 46 y/o male admitted for salvage chemotherapy for relapsed AML, now in remission , waiting on count recovery Attending Statement feels better. NO c/o anxious to go home. WBC 1.4, ANC 800 NO tx today. home soon. The exam, history, and the medical decision-making described in the above note were completed with the assistance of the mid-level provider. I reviewed and agree with the findings presented. I attest that I had a [id number] encounter with the patient on the same day, and personally performed and documented my assessment and findings in the medical record. Problem Qualifiers (1) Diabetes: Qualified Code: E11.9 - Type 2 diabetes mellitus without complication, without long-term current use of insulin Janet Holm November 24, 2016 12:17 Alexandra Olea MD November 24, 2016 17:03
[2016-11-24 12:41] VITALS: BP 119/81; PULSE 88; RESP 20; TEMP 97.9; O2SAT 97
[2016-11-24 16:41] VITALS: BP 120/78; PULSE 87; RESP 20; TEMP 98; O2SAT 97
[2016-11-24 20:00] VITALS: BP 121/74; PULSE 94; RESP 18; TEMP 98.6; O2SAT 95
[2016-11-24] MEDS: ATENOLOL 100 MG TAB PO SCH (20:10)
[2016-11-24] MEDS: DIAZEPAM 10 MG TAB PO PRN (20:10)
[2016-11-25] VITALS: BP 140/79; PULSE 88; RESP 16; TEMP 98.1; O2SAT 97
[2016-11-25 05:00] VITALS: BP 109/69; PULSE 86; RESP 16; TEMP 97.8; O2SAT 98
[2016-11-25 06:00] LABS: HEMATOCRIT 24.2 % (39.0-51.0); MEAN CELL VOLUME 77.4 FL (80.0-100.0); MEAN CORPUSCULAR HEMOGLOBIN 27.1 PG (27.0-34.0); PLATELET COUNT 20 TH/MM3 (150-450); RED BLOOD COUNT 3.13 MIL/MM3 (4.50-5.90); RED CELL DISTRIBUTION WIDTH 14.3 % (11.6-17.2); WHITE BLOOD COUNT 1.7 TH/MM3 (4.0-11.0)
[2016-11-25 06:05] LABS: HEMO FLAGS AUTO DIFF
[2016-11-25 06:22] LABS: BICARBONATE 31.1 MEQ/L (21.0-32.0); POTASSIUM 3.9 MEQ/L (3.5-5.1)
[2016-11-25 07:09] LABS: BANDS 4 % (0-6); CORRECTED NUCLEATED RBC 2 /100 WBC (0-0); MYELOCYTES 1 % (0-0); POLYS (SEG NEUTROPHILS) 52 % (16-70); WBC DIFF SAMPLE 100
[2016-11-25 07:10] LABS: PLATELET ESTIMATE SMEAR LOW (NORMAL); PLATELET MORPHOLOGY NORMAL (NORMAL); SCAN/DIFF FINAL DIFF MANUAL
[2016-11-25] MEDS: LISINOPRIL 10 MG TAB PO SCH (08:46)
[2016-11-25] MEDS: SERTRALINE HCL 50 MG TAB PO SCH (08:46)
[2016-11-25] MEDS: metFORMIN HCL 850 MG TAB PO SCH ×2 (08:46→17:58)
[2016-11-25] MEDS: amLODIPine BESYLATE 5 MG TAB PO SCH (08:46)
[2016-11-25] MEDS: SODIUM CHLORIDE 0.9% FLUSH 10 ML FLUSH IVF SCH (08:49)
[2016-11-25 08:52] VITALS: BP 106/68; PULSE 95; RESP 20; TEMP 98.2; O2SAT 97
[2016-11-25 12:00] VITALS: BP 103/65; PULSE 90; RESP 20; TEMP 97.9; O2SAT 96
--- NOTE | 2016-11-25 12:18 | PD.ONC.PN ---
Subjective Subjective Remarks Afebrile overnight. "I want to go home." Patient states he is tired of being in the hospital. No other complaints. Objective Data Date Time Temp Pulse Resp B/P Pulse Ox O2 Delivery O2 Flow Rate FiO2 11/25/16 08:52 98.2 95 20 106/68 97 11/25/16 05:00 97.8 86 16 109/69 98 11/25/16 00:00 98.1 88 16 140/79 97 11/24/16 20:00 98.6 94 18 121/74 95 11/24/16 16:41 98.0 87 20 120/78 97 11/24/16 12:41 97.9 88 20 119/81 97 11/25/16 11/25/16 11/25/16 07:00 15:00 23:00 Intake Total 500 ml Balance 500 ml Result Diagram: 11/25/1630 11/25/16 0530 Laboratory Results Laboratory Tests Test 11/25/16 05:30 White Blood Count 1.7 TH/MM3 Red Blood Count 3.13 MIL/MM3 Hemoglobin 8.5 GM/DL Hematocrit 24.2 % Mean Corpuscular Volume 77.4 FL Mean Corpuscular Hemoglobin 27.1 PG Mean Corpuscular Hemoglobin 35.0 % Concent Red Cell Distribution Width 14.3 % Platelet Count 20 TH/MM3 Mean Platelet Volume 8.0 FL Neutrophils (%) (Auto) % Lymphocytes (%) (Auto) % Monocytes (%) (Auto) % Eosinophils (%) (Auto) % Basophils (%) (Auto) % Neutrophils # (Auto) TH/MM3 Lymphocytes # (Auto) TH/MM3 Monocytes # (Auto) TH/MM3 Eosinophils # (Auto) TH/MM3 Basophils # (Auto) TH/MM3 CBC Comment AUTO DIFF Differential Total Cells 100 Counted Neutrophils % (Manual) 52 % Band Neutrophils % 4 % Lymphocytes % 4 % Monocytes % 39 % Neutrophils # (Manual) 1.0 TH/MM3 Myelocytes 1 % Nucleated Red Blood Cells 2 /100 WBC Differential Comment FINAL DIFF MANUAL Platelet Estimate LOW Platelet Morphology Comment NORMAL Sodium Level 137 MEQ/L Potassium Level 3.9 MEQ/L Chloride Level 97 MEQ/L Carbon Dioxide Level 31.1 MEQ/L Anion Gap 9 MEQ/L Blood Urea Nitrogen 15 MG/DL Creatinine 0.81 MG/DL Estimat Glomerular Filtration 102 ML/MIN Rate Random Glucose 149 MG/DL Calcium Level 9.6 MG/DL Administered Medications Medications (Trade) Dose Ordered Sig/Génesis Route PRN Reason Start Time Stop Time Status Last Admin Dose Admin Acetaminophen (Tylenol) 650 mg Q4H PRN PO TEMP> 100.5F 09/25/16 08:45 11/21/16 09:51 Heparin Sodium (Porcine) (Heparin Central Flush) 500 units UNSCH IVF 09/25/16 08:45 10/30/16 20:03 Sodium Chloride (NS Flush) 5 ml UNSCH PRN IVF SEE PROTOCOL 09/25/16 08:45 11/21/16 11:46 Heparin Sodium (Porcine) (Heparin Central Flush) 250 units UNSCH PRN IVF SEE PROTOCOL 09/25/16 08:45 11/18/16 23:19 Alteplase, Recombinant 2 mg 2 mg UNSCH PRN IVF SEE LABEL COMMENTS 09/25/16 10:15 10/10/16 09:09 Ondansetron HCl/ Dextrose (Zofran Inj/D5W Inj) 54 ml @ 216 mls/hr Q8H PRN IV PUSH NAUSEA OR VOMITING 09/25/16 10:30 11/13/16 23:59 Docusate Sodium (Colace) 100 mg TID PO 09/25/16 18:00 Hold 10/19/16 13:32 Atenolol (Tenormin) 100 mg HS PO 10/14/16 21:00 11/24/16 20:10 Amlodipine Besylate (Norvasc) 5 mg DAILY PO 10/15/16 09:00 11/25/16 08:46 Diazepam (Valium) 5 mg Q12H PRN PO MILD ANXIETY 10/20/16 11:15 11/15/16 11:10 Diazepam (Valium) 10 mg HS PRN PO INSOMNIA 10/21/16 08:30 11/24/16 20:10 Loperamide HCl (Imodium) 2 mg UNSCH PRN PO DIARRHEA 10/22/16 09:00 11/24/16 09:06 Lisinopril (Prinivil) 10 mg DAILY PO 10/26/16 09:00 11/25/16 08:46 Metoclopramide HCl (Reglan) 5 mg Q8H PRN PO NAUSEA 10/27/16 07:15 10/27/16 07:25 Sodium Chloride (NS Flush) DAILY IVF 11/04/16 09:00 11/25/16 08:49 Heparin Sodium (Porcine) (Heparin Central Flush) DAILY IV FLUSH 11/04/16 09:00 11/18/16 09:58 Sodium Chloride (NS Flush) UNSCH PRN IVF SEE PROTOCOL 11/03/16 17:15 11/19/16 05:50 Heparin Sodium (Porcine) (Heparin Central Flush) UNSCH PRN IV FLUSH SEE PROTOCOL 11/03/16 17:15 11/19/16 05:51 Sodium Chloride (NS Flush) UNSCH PRN IVF SEE PROTOCOL 11/03/16 17:15 11/11/16 05:12 Acetaminophen (Tylenol) 650 mg Q4H PRN PO SEE LABEL COMMENTS 11/04/16 15:45 11/17/16 13:56 Diphenhydramine HCl (Benadryl) 25 mg Q4H PRN PO SEE LABEL COMMENTS 11/04/16 15:45 11/17/16 13:56 Simethicone (Phazyme Chew) 125 mg Q8HR PRN PO GAS RETENTION 11/11/16 17:30 11/11/16 18:06 Oxycodone HCl (Roxicodone) 10 mg Q4H PRN PO pain 1-10 11/12/16 20:00 11/24/16 22:10 Sertraline HCl (Zoloft) 50 mg DAILY PO 11/20/16 12:45 11/25/16 08:46 Metformin HCl (Glucophage) 850 mg BIDPC PO 11/22/16 18:00 11/25/16 08:46 Objective Remarks GENERAL: Middle aged male,lying in bed, sleeping on approach. SKIN: Warm and dry. PICC line right arm. HEAD: Normocephalic. EYES: No injection or drainage. NECK: Supple, trachea midline. CARDIOVASCULAR: Regular rate and rhythm RESPIRATORY: Breath sounds equal bilaterally. No accessory muscle use. GASTROINTESTINAL: Abdomen soft, non-tender, nondistended. EXTREMITIES: No cyanosis NEUROLOGICAL: awake and alert, normal speech. moving extremities. Assessment/Plan Problem List: (1) AML (acute myeloid leukemia) Status: Acute Plan: 11/25: counts continuing to recover. will d/c neutropenic precautions. 11/24: no transfusion. counts recovering. hopeful for d/c soon. 11/23: 1 unit pRBC today. ANC=0.6, will stop Zosyn per ID recommendations. 11/22: monitor CBC. no transfusion today 11/21 WBC is rising. today is 0.7. Diff is pending. PRBC and plat tx today. continue present antibiotics. 11/20/16: no transfusion today. pleased WBC continuing to rise. 11/19/16: Will give HLA matched platelets today for platelet level of 13k. 11/18/16: Thrush mildly improved. Continue Abx. No transfusion today. 11/17/16: give 1 unit pRBC. continue to wean Prednisone (currently 5mg PO daily) . start Diflucan and Magic mouthwash for thrush. continue Zosyn. await marrow recovery. 11/15/16: give 1 unit platelets. check ECG/troponin for cp--more likely musculoskeletal. continue to wean prednisone 11/14/16: give 2 units pRBC 1 unit platelets. continue abx. continue Prednisone at 10mg today. continue to wean as tolerated. 11/13/16: No transfusion today. Spoke with Dr Galarza re: fever spike overnight. Plan to check a stool for Cdiff as he has been having increased diarrhea. Will put him back on Vanco if persistent fevers. Continue to wean steroids. Continue Zosyn. 11/12/16: Will give platelets today for level of 17K. Continue to wean steroids. Flank and back pain likely related to bone marrow activity. Thoracic X-ray showed osteopenia and degenerative changes. 11/11/16: Remains afebrile. Will transfuse 1 unit platelets today. Prednisone cut to 20mg po daily. Encouraged pt to find activities to do to pass the time. 11/10/16 PRBC today. WBC still low. On prednisone for rash. Rash has resolved. No more fevers. 11/09: Change SS to medium dosing while on steroids. Rash improving. Will change to po prednisone. 11/08: Platelet transfusion today. Rash improving with steroids. 11/07 Still has rash. D/w Dr Galarza. She change the a/b D/W BMT team at [facility]. He is now back in remission. Monitor cbc 10/15 D20/1 start second cycle of CLAG-M today. D/W side effects and increase morbidity and mortality with the second cycle. He agreed . I will be OOT . Dr Newell will see him till thursday. 10/14: D19. patient started to receive Clarabine but the pump malfunction causing the chemo to spill on the floor. the chemo is being STAT ordered again and will arrive tomorrow morning. 10/13: bone marrow flow shows 70% blasts. d/w patient, repeating induction with CLAG-M chemotherapy or enrolling in a clinical trial. patient would like to try a second induction with CLAG-M. will give Neupogen today and start tomorrow. 10/12: Mildly tachycardic today in the 110's, but no fever. PRBC x 2 ordered today. 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 Will monitor blood counts, heart rate. Plan for repeat BMB on this upcoming week. 10/09: bone marrow biopsy today. 1 unit platelets, 2 units pRBC. spiked fever 103F. cefepime started. spoke with ID, who advised me to start Daptomycin and Micafungin. transferred to ICU after becoming tachy in 140s 09/26: Start on CLAG-M chemotherapy for relapsed AML. Received Neupogen yesterday. He spiked a fever this afternoon of 101.3. BC, UA, and CXR ordered. Will start pt on Cefepime. Await BC results. History: 11/04: AML Diagnosis made. 46XY, +NPM1 mutation detected, FLT3 negative-- indicates favorable prognosis. 11/05-11/28: Initial induction with MELL-C and idarubicin (7+3). STAT Leukapheresis due to leukostasis. On D25, repeat bone marrow showed residual leukemia. 12/06-12/27: Re-induction with FLANG chemotherapy. Repeat bone marrow biopsy negative for residual AML. Patient in Complete Remission 01/06-01/10: C1 consolidation chemotherapy with Mell-C. 02/17-02/21: C2 consolidation chemotherapy with MELL-C. 03/25-03/30: C3 consolidation chemotherapy with MELL-C 04/28-05/02: C4 consolidation chemo with MELL-C (2) Diabetes Status: Acute Plan: --on Metformin Assessment 46 y/o male admitted for salvage chemotherapy for relapsed AML, now in remission , waiting on count recovery Attending Statement wants to go home no other c/o does not like hospital food. lost almost 40 Lbs d/w pt and . ANC 1000 today, home soon.The exam, history, and the medical decision-making described in the above note were completed with the assistance of the mid-level provider. I reviewed and agree with the findings presented. I attest that I had a face-to- face encounter with the patient on the same day, and personally performed and documented my assessment and findings in the medical record. Problem Qualifiers (1) Diabetes: Qualified Code: E11.9 - Type 2 diabetes mellitus without complication, without long-term current use of insulin Janet Holm November 25, 2016 12:18 Alexandra Olea MD November 25, 2016 23:11
--- NOTE | 2016-11-25 12:21 | HHI.DCPOC ---
Discharge Care Plan Diagnosis: (1) Type 2 diabetes mellitus (2) AML (acute myeloid leukemia) (3) Hypertension Goals to Promote Your Health * To prevent worsening of your condition and complications * To maintain your health at the optimal level Directions to Meet Your Goals Take your medications as prescribed Follow your dietary instruction Follow activity as directed Keep your appointments as scheduled Take your immunizations and boosters as scheduled If your symptoms worsen call your PCP, if no PCP go to Urgent Care Center or Emergency Room Smoking is Dangerous to Your Health. Avoid second hand smoke Call the 24-hour hour crisis hotline for domestic abuse at Janet Holm November 25, 2016 12:21
--- NOTE | 2016-11-25 12:22 | HHI.DS ---
Janet Holm 11/25/16 1222: Discharge Summary Admission Date Sep 25, 2016 at 07:54 Admitting Diagnosis Relapsed AML, pancytopenia (1) AML (acute myeloid leukemia) Diagnosis: Principal Procedures port removal and PICC line placement in interventional radiology on 11/03/16 Brief History 46y/o male with relapsed acute myeloid leukemia, admitted for salvage chemotherapy. Mr. Cullen was initially diagnosed with AML in November of 2015. After two separate induction chemotherapies he entered a remission and subsequently underwent 4 cycles of consolidation chemotherapy with high-dose MELL -C. He completed chemotherapy in May 2016. In September 2016 during a clinic appointment it was noted that he had a white blood cell count of 63k and differential showed 73% blasts. A bone marrow biopsy was performed and the patient was admitted to the hospital for salvage chemotherapy. CBC/BMP: 11/25/16 0530 11/25/16 0530 Significant Findings Laboratory Tests Test 11/23/16 11/24/16 11/25/16 05:30 06:20 05:30 White Blood Count 0.9 TH/MM3 1.4 TH/MM3 1.7 TH/MM3 (4.0-11.0) (4.0-11.0) (4.0-11.0) Red Blood Count 2.84 MIL/MM3 3.25 MIL/MM3 3.13 MIL/MM3 (4.50-5.90) (4.50-5.90) (4.50-5.90) Hemoglobin 7.4 GM/DL 8.9 GM/DL 8.5 GM/DL (13.0-17.0) (13.0-17.0) (13.0-17.0) Hematocrit 21.5 % 24.7 % 24.2 % (39.0-51.0) (39.0-51.0) (39.0-51.0) Mean Corpuscular Volume 75.8 FL 76.0 FL 77.4 FL (80.0-100.0) (80.0-100.0) (80.0-100.0) Mean Corpuscular Hemoglobin 25.9 PG (27.0-34.0) Platelet Count 18 TH/MM3 22 TH/MM3 20 TH/MM3 (150-450) (150-450) (150-450) Band Neutrophils % 20 % (0-6) 10 % (0-6) Lymphocytes % 8 % (9-44) 7 % (9-44) 4 % (9-44) Monocytes % 22 % (0-8) 34 % (0-8) 39 % (0-8) Neutrophils # (Manual) 0.6 TH/MM3 0.8 TH/MM3 1.0 TH/MM3 (1.8-7.7) (1.8-7.7) (1.8-7.7) Nucleated Red Blood Cells 1 /100 WBC 2 /100 WBC 2 /100 WBC (0-0) (0-0) (0-0) Platelet Estimate RARE (NORMAL) LOW (NORMAL) LOW (NORMAL) Chloride Level 97 MEQ/L 97 MEQ/L (98-107) (98-107) Carbon Dioxide Level 32.3 MEQ/L (21.0-32.0) Estimat Glomerular Filtration 83 ML/MIN (>89) Rate Random Glucose 186 MG/DL 131 MG/DL 149 MG/DL (74-106) (74-106) (74-106) Mean Corpuscular Hemoglobin 36.2 % Concent (32.0-36.0) Lymphocytes (%) (Auto) 3.7 % (9.0-44.0) Monocytes (%) (Auto) 35.9 % (0.0-8.0) Neutrophils # (Auto) 0.8 TH/MM3 (1.8-7.7) Lymphocytes # (Auto) 0.1 TH/MM3 (1.0-4.8) Myelocytes 1 % (0-0) 1 % (0-0) Imaging Last Impressions Lumbar Spine MRI 11/13/16 0000 Signed Impressions: Service Date/Time: November 20:55 - CONCLUSION: Tiny central annular tear dorsally at L4-5. No evidence of malignant changes in the lumbar spine and no significant anatomic compromise. Eric Santiago MD Thoracic Spine X-Ray 11/12/16 0000 Signed Impressions: Service Date/Time: Saturday, November 12, 2016 12:16 - CONCLUSION: Scattered degenerative changes and osteopenia. Jp Her MD Sacrum X-Ray 11/12/16 0000 Signed Impressions: Service Date/Time: Saturday, November 12, 2016 20:10 - CONCLUSION: Unremarkable examination of the sacrum. Eric Santiago MD Lumbar Spine X-Ray 11/12/16 0000 Signed Impressions: Service Date/Time: Saturday, November 12, 2016 20:09 - CONCLUSION: Mild degenerative changes. No acute bony findings. Eric Santiago MD PICC Line Insertion 11/03/16 1135 Signed Impressions: Service Date/Time: Thursday, November 03, 2016 15:49 - CONCLUSION: 1. Uncomplicated central venous Power PICC line placement. 2. The PICC line can be used immediately. Isai Healy Jr., MD Port Line Revision 11/03/16 0000 Signed Impressions: Service Date/Time: Thursday, November 03, 2016 00:00 - CONCLUSION: Uncomplicated port removal as above. The tip of the catheter was sent for culture. Isai Healy Jr., MD Chest X-Ray 11/03/16 0000 Signed Impressions: Service Date/Time: Thursday, November 03, 2016 18:12 - CONCLUSION: 1. No pneumonia or other acute cardiopulmonary disease. 2. Right IJ [id number] catheter out in the interim. There is now a right arm PICC with tip in the superior vena cava. Eric Ontiveros MD Head CT 10/14/16 0000 Signed Impressions: Service Date/Time: Friday, October 14, 2016 09:52 - CONCLUSION: 1. No acute intracranial abnormality is identified. 2. Minimal mucoperiosteal thickening in the left maxillary and ethmoid sinus. Eric Collazo MD PE at Discharge please see physical exam from date of discharge Hospital Course Mr. Cullen was admitted on September 25, 2016 for salvage chemotherapy for relapsed AML. He was started on CLAG-M chemotherapy. Repeat bone marrow biopsy showed 70% blasts. It was discussed with the patient to either repeat induction chemotherapy with CLAG-M or enroll in a clinical trial. The patient made the decision to repeat induction chemotherapy. CLAG-M was repeated and on repeat bone marrow biopsy was performed. On 11/06 the pathology returned showing no residual leukemia. The bone marrow transplant team at [facility] was contacted and notified of results. Patient was transfused multiple units irradiated pRBC and platelets during his hospitalization. He received multiple doses of IV antibiotics for neutropenic fever and positive blood cultures. His home medications were resumed during the hospitalization. He is being discharged home in stable condition with instructions for follow up. Please see below for more detailed hospital course: 11/25: counts continuing to recover. will d/c neutropenic precautions. 11/24: no transfusion. counts recovering. hopeful for d/c soon. 11/23: 1 unit pRBC today. ANC=0.6, will stop Zosyn per ID recommendations. 11/22: monitor CBC. no transfusion today 11/21 WBC is rising. today is 0.7. Diff is pending. PRBC and plat tx today. continue present antibiotics. 11/20/16: no transfusion today. pleased WBC continuing to rise. 11/19/16: Will give HLA matched platelets today for platelet level of 13k. 11/18/16: Thrush mildly improved. Continue Abx. No transfusion today. 11/17/16: give 1 unit pRBC. continue to wean Prednisone (currently 5mg PO daily) . start Diflucan and Magic mouthwash for thrush. continue Zosyn. await marrow recovery. 11/15/16: give 1 unit platelets. check ECG/troponin for cp--more likely musculoskeletal. continue to wean prednisone 11/14/16: give 2 units pRBC 1 unit platelets. continue abx. continue Prednisone at 10mg today. continue to wean as tolerated. 11/13/16: No transfusion today. Spoke with Dr Corona re: fever spike overnight. Will put him back on Vanco if persistent fevers. Continue to wean steroids. Continue Zosyn. 11/12/16: Will give platelets today for level of 17K. Continue to wean steroids. Flank and back pain likely related to bone marrow activity. Thoracic X-ray showed osteopenia and degenerative changes. 11/11/16: Remains afebrile. Will transfuse 1 unit platelets today. Prednisone cut to 20mg po daily. Encouraged pt to find activities to do to pass the time. 11/10/16 PRBC today. WBC still low. On prednisone for rash. Rash has resolved. No more fevers. 11/09: Change SS to medium dosing while on steroids. Rash improving. Will change to po prednisone. 11/08: Platelet transfusion today. Rash improving with steroids. 11/07 Still has rash. D/w Dr Corona. She change the a/b D/W BMT team at [facility]. He is now back in remission.Monitor cbc 11/06 No TX today. on steroid for rash. d/w Dr Corona. Core BM bx = no residual leukemia. He is in remission. d/w pt. He is very happy. will call BMT team at [facility]. 11/05 No TX today. Has rash. ?meds. ID to follow. Start steroid for rash. Flow cyto on BM shows <1% Blasts. Await core bx report. Molecular test results are pending. d/w BMT coordinator at [facility]. 11/04: D4. bone marrow biopsy and aspirate at bedside. continue abx. patient has red raised rash on flanks, none on face or chest. give 2 units pRBC, 1 unit platelet today. 11/03: D39/20. fever overnight. BC no growth. will consult IR to remove port. 11/02: D38/19. fever overnight. await blood cultures. give 1 unit pRBC. will inform ID of additional fever spike. 11/01: D37/18. spiked fever of 100.[address] Corona, ID advised to stop Zosyn, start Meropenem and continue Vanco. 10/31: D36/17. tolerating Vanco and Zosyn. rash improving. tired of being in hospital. 1 unit platelets and 1 unit pRBC today. plan for bone marrow biopsy on Monday 10/30 Prbc and plat today. No more fevers Tolerating vanco well so far.Clinically looks much better then yesterday. Extensive d/w pt and . 10/29 PRBC and plat todayD/W Dr corona regarding antibiotics. 10/28: D33/14: afebrile overnight. currently on Zosyn. persistent rash. has not been able to take exjade d/t nausea. will check ferritin 10/27: D32/13. febrile to 101.3 likely due to refusing Dapto and Micafungin last night. + rash on face and trunk. no transfusion today. 10/26: D31/12: No new fevers. Continue IV Abx per ID. Pt feeling overall better. Diarrhea is improved. Await count recovery. No transfusion today. 10/25: D30/11: 2 units irradiated platelets today. Continue current IV Abx per ID. Preliminary micro ++gram positive rods 10/24: D29/10. no transfusion. abx per ID. monitor blood pressure with increased Lisinopril. 10/23: D28/9. no transfusion. continue antibiotics. will increase Lisinopril to 20mg PO daily. 10/22: D27/8; 1 unit platelets. continue abx per ID 10/21: D26/7: 1 unit pRBC. CXR 10/20: D25/6. 1 unit platelets and pRBC. stop IVF. wean Adderall 10/19: D24/5 1 unit platelets. last day of chemotherapy 10/18: D2/. give 2 units pRBC today. monitor for fever 10/17: D2/. continue CLAG-M. no fever. 10/16: D21/2 Pt tolerated chemo well yesterday. No fevers. Counts OK. No headache. Continue chemo. Monitor counts, fevers. 10/15 D2 start second cycle of CLAG-M today. D/W side effects and increase morbidity and mortality with the second cycle. He agreed . I will be OOT . Dr Newell will see him till thursday. 10/14: D19. patient started to receive Clarabine but the pump malfunction causing the chemo to spill on the floor. the chemo is being STAT ordered again and will arrive tomorrow morning. 10/13: bone marrow flow shows 70% blasts. d/w patient, repeating induction with CLAG-M chemotherapy or enrolling in a clinical trial. patient would like to try a second induction with CLAG-M. will give Neupogen today and start tomorrow. 10/12: Mildly tachycardic today in the 110's, but no fever. PRBC x 2 ordered today. FLIGHT PHYSICIAN replacing potassium per protocol for level of 3.2. Will monitor blood counts, heart rate. Plan for repeat BMB on this upcoming week. 10/11: Spiked a fever this morning to 101.8. Will order blood cultures x 2, check UA. No longer tachycardic. Continue IV Abx. Transfuse 1 unit platelets today. 10/10: afebrile today. tolerating blood and platelet transfusions. will keep in ICU another night as he remains tachycardic. 10/09: bone marrow biopsy today. 1 unit platelets, 2 units pRBC. spiked fever 103F. cefepime started. spoke with ID, who advised me to start Daptomycin and Micafungin. transferred to ICU after becoming tachy in 140s 10/08: day 13. 1 unit platelets. bone marrow biopsy tomorrow. 10/07: flow cytometry results returned showing NPM1 + and FLT3 +. I obtained the original pathology again from to double check and the original FLT3 was NEGATIVE. NPM1 mutation was detected 43.4%, KIT mutation not detected. 46XY 10/06: 2 units pRBC today. plan to do bone marrow biopsy AM. 10/05: 1 unit platelets today 10/04: D9. no fever. 10/03: D8. no transfusion. monitor for fever 10/02: Will give 1 unit pRBC's, platelets today. Plan for repeat BMB on 10/10. 10/01: Finished chemotherapy yesterday. Tolerated well. 1 unit irradiated PRBC's to be transfused today. Continue to closely monitor blood counts. 09/30: D5. last day of chemotherapy. will give 1 unit platelets. 09/29: D4. continue chemotherapy. no transfusion. 09/28: D3. continue chemotherapy 09/27: D2. continue chemotherapy 09/26: Start on CLAG-M chemotherapy for relapsed AML. Received Neupogen yesterday. He spiked a fever this afternoon of 101.3. BC, UA, and CXR ordered. Will start pt on Cefepime. Await BC results. Pt Condition on Discharge: Good Discharge Disposition: Discharge Home Discharge Instructions DIET: Follow Instructions for: As Tolerated, No Restrictions Activities you can perform: Regular-No Restrictions Alexandra Olea MD 11/27/16 2319: Discharge Summary CBC/BMP: 11/25/16 0530 11/25/16 0530 Janet Holm November 25, 2016 12:22 Alexandra Olea MD November 27, 2016 23:19
[2016-11-25 16:21] VITALS: BP 111/58; PULSE 97; RESP 20; TEMP 99.1; O2SAT 93
[2016-11-25 20:00] VITALS: BP 98/67; PULSE 107; RESP 17; TEMP 98.2; O2SAT 96
[2016-11-25] MEDS: DIAZEPAM 10 MG TAB PO PRN (21:41)
[2016-11-25] MEDS: ATENOLOL 100 MG TAB PO SCH (21:42)
[2016-11-26] VITALS (7 sets, daily range): BP systolic 94–133; BP diastolic 63–79; PULSE 86–98; RESP 16–18; TEMP 97.9–98.9; O2SAT 94–99
[2016-11-26 04:23] LABS: AUTOMATED NEUTROPHIL # 1.2 TH/MM3 (1.8-7.7); BASOPHIL % 0.3 % (0.0-2.0); HEMATOCRIT 23.9 % (39.0-51.0); LYMPH % 2.2 % (9.0-44.0); MEAN CELL VOLUME 77.1 FL (80.0-100.0); MEAN CORPUSCULAR HEMOGLOBIN 27.1 PG (27.0-34.0); MEAN CORPUSCULAR HGB CONC 35.1 % (32.0-36.0); MONO % 38.3 % (0.0-8.0); NEUT % 59.2 % (16.0-70.0); PLATELET COUNT 22 TH/MM3 (150-450); RED CELL DISTRIBUTION WIDTH 14.4 % (11.6-17.2)
[2016-11-26 04:25] LABS: HEMO FLAGS AUTO DIFF
[2016-11-26 04:49] LABS: BICARBONATE 30.9 MEQ/L (21.0-32.0); POTASSIUM 3.8 MEQ/L (3.5-5.1)
[2016-11-26 05:29] LABS: BANDS 1 % (0-6); CORRECTED NUCLEATED RBC 2 /100 WBC (0-0); MYELOCYTES 3 % (0-0); NEUTROPHIL # MANUAL DIFF 1.3 TH/MM3 (1.8-7.7); POLYS (SEG NEUTROPHILS) 59 % (16-70); WBC DIFF SAMPLE 100
[2016-11-26 05:30] LABS: PLATELET ESTIMATE SMEAR LOW (NORMAL); PLATELET MORPHOLOGY NORMAL (NORMAL); SCAN/DIFF FINAL DIFF MANUAL
[2016-11-26] MEDS: metFORMIN HCL 850 MG TAB PO SCH ×2 (09:53→17:09)
[2016-11-26] MEDS: amLODIPine BESYLATE 5 MG TAB PO SCH (09:53)
[2016-11-26] MEDS: LISINOPRIL 10 MG TAB PO SCH (09:54)
[2016-11-26] MEDS: SERTRALINE HCL 50 MG TAB PO SCH (09:54)
[2016-11-26] MEDS: SODIUM CHLORIDE 0.9% FLUSH 10 ML FLUSH IVF SCH (09:57)
--- NOTE | 2016-11-26 10:56 | PD.ONC.PN ---
Subjective Subjective Remarks Pt awake in room ordering breakfast. He is good spirits, excited to go home this week. No complaints. Objective Data Date Time Temp Pulse Resp B/P Pulse Ox O2 Delivery O2 Flow Rate FiO2 11/26/16 08:00 98.3 86 16 106/79 97 11/26/16 04:00 98.9 94 17 99/67 99 11/26/16 01:45 133/70 11/26/16 00:00 98.0 98 17 94/63 98 11/25/16 20:00 98.2 107 17 98/67 96 11/25/16 16:21 99.1 97 20 111/58 93 11/25/16 12:00 97.9 90 20 103/65 96 Result Diagram: 11/26/1639911/26/16399 Laboratory Results Laboratory Tests Test 11/26/16 04:00 White Blood Count 2.0 TH/MM3 Red Blood Count 3.10 MIL/MM3 Hemoglobin 8.4 GM/DL Hematocrit 23.9 % Mean Corpuscular Volume 77.1 FL Mean Corpuscular Hemoglobin 27.1 PG Mean Corpuscular Hemoglobin 35.1 % Concent Red Cell Distribution Width 14.4 % Platelet Count 22 TH/MM3 Mean Platelet Volume 8.5 FL Neutrophils (%) (Auto) 59.2 % Lymphocytes (%) (Auto) 2.2 % Monocytes (%) (Auto) 38.3 % Eosinophils (%) (Auto) 0.0 % Basophils (%) (Auto) 0.3 % Neutrophils # (Auto) 1.2 TH/MM3 Lymphocytes # (Auto) 0.0 TH/MM3 Monocytes # (Auto) 0.7 TH/MM3 Eosinophils # (Auto) 0.0 TH/MM3 Basophils # (Auto) 0.0 TH/MM3 CBC Comment AUTO DIFF Differential Total Cells 100 Counted Neutrophils % (Manual) 59 % Band Neutrophils % 1 % Lymphocytes % 2 % Monocytes % 35 % Neutrophils # (Manual) 1.3 TH/MM3 Myelocytes 3 % Nucleated Red Blood Cells 2 /100 WBC Differential Comment FINAL DIFF MANUAL Platelet Estimate LOW Platelet Morphology Comment NORMAL Red Cell Morphology Comment NORMAL Sodium Level 138 MEQ/L Potassium Level 3.8 MEQ/L Chloride Level 98 MEQ/L Carbon Dioxide Level 30.9 MEQ/L Anion Gap 9 MEQ/L Blood Urea Nitrogen 15 MG/DL Creatinine 0.79 MG/DL Estimat Glomerular Filtration 105 ML/MIN Rate Random Glucose 138 MG/DL Calcium Level 9.5 MG/DL Administered Medications Medications (Trade) Dose Ordered Sig/Génesis Route PRN Reason Start Time Stop Time Status Last Admin Dose Admin Acetaminophen (Tylenol) 650 mg Q4H PRN PO TEMP> 100.5F 09/25/16 08:45 11/21/16 09:51 Heparin Sodium (Porcine) (Heparin Central Flush) 500 units UNSCH IVF 09/25/16 08:45 10/30/16 20:03 Sodium Chloride (NS Flush) 5 ml UNSCH PRN IVF SEE PROTOCOL 09/25/16 08:45 11/21/16 11:46 Heparin Sodium (Porcine) (Heparin Central Flush) 250 units UNSCH PRN IVF SEE PROTOCOL 09/25/16 08:45 11/18/16 23:19 Alteplase, Recombinant 2 mg 2 mg UNSCH PRN IVF SEE LABEL COMMENTS 09/25/16 10:15 10/10/16 09:09 Ondansetron HCl/ Dextrose (Zofran Inj/D5W Inj) 54 ml @ 216 mls/hr Q8H PRN IV PUSH NAUSEA OR VOMITING 09/25/16 10:30 11/13/16 23:59 Docusate Sodium (Colace) 100 mg TID PO 09/25/16 18:00 Hold 10/19/16 13:32 Atenolol (Tenormin) 100 mg HS PO 10/14/16 21:00 11/25/16 21:42 Amlodipine Besylate (Norvasc) 5 mg DAILY PO 10/15/16 09:00 11/26/16 09:53 Diazepam (Valium) 5 mg Q12H PRN PO MILD ANXIETY 10/20/16 11:15 11/15/16 11:10 Diazepam (Valium) 10 mg HS PRN PO INSOMNIA 10/21/16 08:30 11/25/16 21:41 Loperamide HCl (Imodium) 2 mg UNSCH PRN PO DIARRHEA 10/22/16 09:00 11/24/16 09:06 Lisinopril (Prinivil) 10 mg DAILY PO 10/26/16 09:00 11/26/16 09:54 Metoclopramide HCl (Reglan) 5 mg Q8H PRN PO NAUSEA 10/27/16 07:15 10/27/16 07:25 Sodium Chloride (NS Flush) DAILY IVF 11/04/16 09:00 11/26/16 09:57 Heparin Sodium (Porcine) (Heparin Central Flush) DAILY IV FLUSH 11/04/16 09:00 11/26/16 09:57 Sodium Chloride (NS Flush) UNSCH PRN IVF SEE PROTOCOL 11/03/16 17:15 11/19/16 05:50 Heparin Sodium (Porcine) (Heparin Central Flush) UNSCH PRN IV FLUSH SEE PROTOCOL 11/03/16 17:15 11/19/16 05:51 Sodium Chloride (NS Flush) UNSCH PRN IVF SEE PROTOCOL 11/03/16 17:15 11/11/16 05:12 Acetaminophen (Tylenol) 650 mg Q4H PRN PO SEE LABEL COMMENTS 11/04/16 15:45 11/17/16 13:56 Diphenhydramine HCl (Benadryl) 25 mg Q4H PRN PO SEE LABEL COMMENTS 11/04/16 15:45 11/17/16 13:56 Simethicone (Phazyme Chew) 125 mg Q8HR PRN PO GAS RETENTION 11/11/16 17:30 11/11/16 18:06 Oxycodone HCl (Roxicodone) 10 mg Q4H PRN PO pain 1-10 11/12/16 20:00 11/26/16 09:55 Sertraline HCl (Zoloft) 50 mg DAILY PO 11/20/16 12:45 11/26/16 09:54 Metformin HCl (Glucophage) 850 mg BIDPC PO 11/22/16 18:00 11/26/16 09:53 Objective Remarks GENERAL: Middle aged male,lying in bed on telephone. SKIN: Warm and dry. PICC line right arm. HEAD: Normocephalic. EYES: No injection or drainage. NECK: Supple, trachea midline. CARDIOVASCULAR: Regular rate and rhythm RESPIRATORY: Breath sounds equal bilaterally. No accessory muscle use. GASTROINTESTINAL: Abdomen soft, non-tender, nondistended. EXTREMITIES: No cyanosis. No edema. NEUROLOGICAL: Awake and alert, normal speech. Moving extremities. Assessment/Plan Problem List: (1) AML (acute myeloid leukemia) Status: Acute Plan: 11/26: Counts doing well. ANC 1200. Will plan for discharge by tomorrow if counts remain on the rise. 5/23: counts continuing to recover. will d/c neutropenic precautions. 11/24: no transfusion. counts recovering. hopeful for d/c soon. 11/23: 1 unit pRBC today. ANC=0.6, will stop Zosyn per ID recommendations. 11/22: monitor CBC. no transfusion today 11/21 WBC is rising. today is 0.7. Diff is pending. PRBC and plat tx today. continue present antibiotics. 11/20/16: no transfusion today. pleased WBC continuing to rise. 11/19/16: Will give HLA matched platelets today for platelet level of 13k. 11/18/16: Thrush mildly improved. Continue Abx. No transfusion today. 11/17/16: give 1 unit pRBC. continue to wean Prednisone (currently 5mg PO daily) . start Diflucan and Magic mouthwash for thrush. continue Zosyn. await marrow recovery. 11/15/16: give 1 unit platelets. check ECG/troponin for cp--more likely musculoskeletal. continue to wean prednisone 11/14/16: give 2 units pRBC 1 unit platelets. continue abx. continue Prednisone at 10mg today. continue to wean as tolerated. 11/13/16: No transfusion today. Spoke with Dr Galarza re: fever spike overnight. Plan to check a stool for Cdiff as he has been having increased diarrhea. Will put him back on Vanco if persistent fevers. Continue to wean steroids. Continue Zosyn. 11/12/16: Will give platelets today for level of 17K. Continue to wean steroids. Flank and back pain likely related to bone marrow activity. Thoracic X-ray showed osteopenia and degenerative changes. 11/11/16: Remains afebrile. Will transfuse 1 unit platelets today. Prednisone cut to 20mg po daily. Encouraged pt to find activities to do to pass the time. 11/10/16 PRBC today. WBC still low. On prednisone for rash. Rash has resolved. No more fevers. 11/09: Change SS to medium dosing while on steroids. Rash improving. Will change to po prednisone. 11/08: Platelet transfusion today. Rash improving with steroids. 11/07 Still has rash. D/w Dr Galarza. She change the a/b D/W BMT team at [facility]. He is now back in remission. Monitor cbc 10/15 D20/1 start second cycle of CLAG-M today. D/W side effects and increase morbidity and mortality with the second cycle. He agreed . I will be OOT . Dr Newell will see him till thursday. 10/14: D19. patient started to receive Clarabine but the pump malfunction causing the chemo to spill on the floor. the chemo is being STAT ordered again and will arrive tomorrow morning. 10/13: bone marrow flow shows 70% blasts. d/w patient, repeating induction with CLAG-M chemotherapy or enrolling in a clinical trial. patient would like to try a second induction with CLAG-M. will give Neupogen today and start tomorrow. 10/12: Mildly tachycardic today in the 110's, but no fever. PRBC x 2 ordered today. MANAGER ADVANCED replacing potassium per protocol for level of 3.2. Will monitor blood counts, heart rate. Plan for repeat BMB on this upcoming week. 10/09: bone marrow biopsy today. 1 unit platelets, 2 units pRBC. spiked fever 103F. cefepime started. spoke with ID, who advised me to start Daptomycin and Micafungin. transferred to ICU after becoming tachy in 140s 09/26: Start on CLAG-M chemotherapy for relapsed AML. Received Neupogen yesterday. He spiked a fever this afternoon of 101.3. BC, UA, and CXR ordered. Will start pt on Cefepime. Await BC results. History: 11/04: AML Diagnosis made. 46XY, +NPM1 mutation detected, FLT3 negative-- indicates favorable prognosis. 11/05-11/28: Initial induction with MELL-C and idarubicin (7+3). STAT Leukapheresis due to leukostasis. On D25, repeat bone marrow showed residual leukemia. 12/06-12/27: Re-induction with FLANG chemotherapy. Repeat bone marrow biopsy negative for residual AML. Patient in Complete Remission 01/06-01/10: C1 consolidation chemotherapy with Mell-C. 02/17-02/21: C2 consolidation chemotherapy with MELL-C. 03/25-03/30: C3 consolidation chemotherapy with MELL-C 04/28-05/02: C4 consolidation chemo with MELL-C (2) Diabetes Status: Acute Plan: --on Metformin Assessment 46 y/o male admitted for salvage chemotherapy for relapsed AML, now in remission , waiting on count recovery Attending Statement no c/o excited to go go home tomorrow. ANC 1300. If counts continue to rise then home in the morning. d/w pt and . d/w his dentist who will see him tomorrow at 11:40 The exam, history, and the medical decision-making described in the above note were completed with the assistance of the mid-level provider. I reviewed and agree with the findings presented. I attest that I had a [id number] encounter with the patient on the same day, and personally performed and documented my assessment and findings in the medical record. Problem Qualifiers (1) Diabetes: Qualified Code: E11.9 - Type 2 diabetes mellitus without complication, without long-term current use of insulin Valarie Lopez November 26, 2016 10:56 Alexandra Olea MD November 26, 2016 21:22
[2016-11-26] MEDS: ATENOLOL 100 MG TAB PO SCH (21:29)
[2016-11-26] MEDS: DIAZEPAM 10 MG TAB PO PRN (21:29)
[2016-11-27] VITALS: BP 111/72; PULSE 94; RESP 18; TEMP 98.1; O2SAT 97
[2016-11-27 04:00] VITALS: BP 97/60; PULSE 91; RESP 17; TEMP 98.1; O2SAT 99
[2016-11-27 04:41] LABS: AUTOMATED NEUTROPHIL # 1.1 TH/MM3 (1.8-7.7); BASOPHIL % 0.3 % (0.0-2.0); EOSINOPHIL % 0.1 % (0.0-4.0); HEMATOCRIT 22.9 % (39.0-51.0); LYMPH % 2.7 % (9.0-44.0); LYMPHOCYTE # 0.1 TH/MM3 (1.0-4.8); MEAN CELL VOLUME 77.3 FL (80.0-100.0); MEAN CORPUSCULAR HEMOGLOBIN 27.5 PG (27.0-34.0); MEAN CORPUSCULAR HGB CONC 35.6 % (32.0-36.0); MONO % 39.8 % (0.0-8.0); NEUT % 57.1 % (16.0-70.0); PLATELET COUNT 23 TH/MM3 (150-450); RED BLOOD COUNT 2.96 MIL/MM3 (4.50-5.90); WHITE BLOOD COUNT 1.9 TH/MM3 (4.0-11.0)
[2016-11-27 04:44] LABS: HEMO FLAGS AUTO DIFF
[2016-11-27 05:00] LABS: ALT (GPT) 26 U/L (12-78); ANION GAP 8 MEQ/L (5-15); AST (GOT) 18 U/L (15-37); BICARBONATE 31.3 MEQ/L (21.0-32.0); BLOOD UREA NITROGEN 13 MG/DL (7-18); CHLORIDE 98 MEQ/L (98-107); GLOMERULAR FILTRATION RATE 109 ML/MIN (>89); POTASSIUM 3.9 MEQ/L (3.5-5.1); SODIUM (NA) 137 MEQ/L (136-145)
[2016-11-27 05:02] LABS: ALKALINE PHOSPHATASE 109 U/L (45-117); TOTAL BILIRUBIN ADULT 0.5 MG/DL (0.2-1.0)
[2016-11-27 05:29] LABS: BANDS 6 % (0-6); BASOPHILS 2 % (0-2); CORRECTED NUCLEATED RBC 2 /100 WBC (0-0); METAMYELOCYTES 2 % (0-1); MYELOCYTES 2 % (0-0); NEUTROPHIL # MANUAL DIFF 1.3 TH/MM3 (1.8-7.7); POLYS (SEG NEUTROPHILS) 58 % (16-70); WBC DIFF SAMPLE 100
[2016-11-27 05:30] LABS: PLATELET ESTIMATE SMEAR LOW (NORMAL); PLATELET MORPHOLOGY NORMAL (NORMAL); SCAN/DIFF FINAL DIFF MANUAL
[2016-11-27 08:00] VITALS: BP 107/76; PULSE 85; RESP 18; TEMP 98.7; O2SAT 97
[2016-11-27] MEDS: LISINOPRIL 10 MG TAB PO SCH (09:00)
[2016-11-27] MEDS: amLODIPine BESYLATE 5 MG TAB PO SCH (09:00)
[2016-11-27] MEDS: metFORMIN HCL 850 MG TAB PO SCH (09:01)
[2016-11-27] MEDS: SERTRALINE HCL 50 MG TAB PO SCH (09:02)
--- NOTE | 2016-11-27 10:51 | PD.ONC.PN ---
Subjective Subjective Remarks Pt seen and examined this am at 8:15. Pt remains afebrile. Very excited to go home today Has an appt with a local dentist at 11:00 am Plan for outpatient followup next week Thursday. Objective Data Date Time Temp Pulse Resp B/P Pulse Ox O2 Delivery O2 Flow Rate FiO2 11/27/16 08:00 98.7 85 18 107/76 97 11/27/16 04:00 98.1 91 17 97/60 99 11/27/16 00:00 98.1 94 18 111/72 97 11/26/16 20:00 98.4 97 18 106/69 97 11/26/16 16:00 97.9 86 18 103/73 97 11/26/16 12:00 98.4 93 16 103/68 94 Result Diagram: 11/27/160 11/27/16 040 Laboratory Results Laboratory Tests Test 11/27/16 04:00 White Blood Count 1.9 TH/MM3 Red Blood Count 2.96 MIL/MM3 Hemoglobin 8.2 GM/DL Hematocrit 22.9 % Mean Corpuscular Volume 77.3 FL Mean Corpuscular Hemoglobin 27.5 PG Mean Corpuscular Hemoglobin 35.6 % Concent Red Cell Distribution Width 14.0 % Platelet Count 23 TH/MM3 Mean Platelet Volume 9.0 FL Neutrophils (%) (Auto) 57.1 % Lymphocytes (%) (Auto) 2.7 % Monocytes (%) (Auto) 39.8 % Eosinophils (%) (Auto) 0.1 % Basophils (%) (Auto) 0.3 % Neutrophils # (Auto) 1.1 TH/MM3 Lymphocytes # (Auto) 0.1 TH/MM3 Monocytes # (Auto) 0.7 TH/MM3 Eosinophils # (Auto) 0.0 TH/MM3 Basophils # (Auto) 0.0 TH/MM3 CBC Comment AUTO DIFF Differential Total Cells 100 Counted Neutrophils % (Manual) 58 % Band Neutrophils % 6 % Lymphocytes % 5 % Monocytes % 25 % Basophils % 2 % Neutrophils # (Manual) 1.3 TH/MM3 Metamyelocytes 2 % Myelocytes 2 % Nucleated Red Blood Cells 2 /100 WBC Differential Comment FINAL DIFF MANUAL Platelet Estimate LOW Platelet Morphology Comment NORMAL Sodium Level 137 MEQ/L Potassium Level 3.9 MEQ/L Chloride Level 98 MEQ/L Carbon Dioxide Level 31.3 MEQ/L Anion Gap 8 MEQ/L Blood Urea Nitrogen 13 MG/DL Creatinine 0.76 MG/DL Estimat Glomerular Filtration 109 ML/MIN Rate Random Glucose 158 MG/DL Calcium Level 9.3 MG/DL Total Bilirubin 0.5 MG/DL Aspartate Amino Transf 18 U/L (AST/SGOT) Alanine Aminotransferase 26 U/L (ALT/SGPT) Alkaline Phosphatase 109 U/L Total Protein 6.5 GM/DL Albumin 3.0 GM/DL Objective Remarks GENERAL: Middle aged male, lying in bed in no distress. SKIN: Warm and dry. HEAD: Normocephalic. EYES: No injection or drainage. NECK: Supple, trachea midline. CARDIOVASCULAR: Regular rate and rhythm without murmurs. RESPIRATORY: Lungs clear anteriorly. Breathing unlabored. GASTROINTESTINAL: Abdomen soft, non-tender, nondistended. EXTREMITIES: No cyanosis, or edema. NEUROLOGICAL: No obvious focal deficit. Awake, alert, and oriented x3. PSYCHIATRIC: Excited but anxious for the next phase of his treatment. Assessment/Plan Problem List: (1) AML (acute myeloid leukemia) Status: Acute Plan: 11/27: Counts stable. OK for discharge today. Pt will followup in clinic next Thursday. Encouraged to call the clinic if he needs dental work so he can get platelets prior. 11/26: Counts doing well. ANC 1200. Will plan for discharge by tomorrow if counts remain on the rise. 11/25: counts continuing to recover. will d/c neutropenic precautions. 11/24: no transfusion. counts recovering. hopeful for d/c soon. 11/23: 1 unit pRBC today. ANC=0.6, will stop Zosyn per ID recommendations. 11/22: monitor CBC. no transfusion today 11/21 WBC is rising. today is 0.7. Diff is pending. PRBC and plat tx today. continue present antibiotics. 11/20/16: no transfusion today. pleased WBC continuing to rise. 11/19/16: Will give HLA matched platelets today for platelet level of 13k. 11/18/16: Thrush mildly improved. Continue Abx. No transfusion today. 11/17/16: give 1 unit pRBC. continue to wean Prednisone (currently 5mg PO daily) . start Diflucan and Magic mouthwash for thrush. continue Zosyn. await marrow recovery. 11/15/16: give 1 unit platelets. check ECG/troponin for cp--more likely musculoskeletal. continue to wean prednisone 11/14/16: give 2 units pRBC 1 unit platelets. continue abx. continue Prednisone at 10mg today. continue to wean as tolerated. 11/13/16: No transfusion today. Spoke with Dr Galarza re: fever spike overnight. Plan to check a stool for Cdiff as he has been having increased diarrhea. Will put him back on Vanco if persistent fevers. Continue to wean steroids. Continue Zosyn. 11/12/16: Will give platelets today for level of 17K. Continue to wean steroids. Flank and back pain likely related to bone marrow activity. Thoracic X-ray showed osteopenia and degenerative changes. 11/11/16: Remains afebrile. Will transfuse 1 unit platelets today. Prednisone cut to 20mg po daily. Encouraged pt to find activities to do to pass the time. 11/10/16 PRBC today. WBC still low. On prednisone for rash. Rash has resolved. No more fevers. 11/09: Change SS to medium dosing while on steroids. Rash improving. Will change to po prednisone. 11/08: Platelet transfusion today. Rash improving with steroids. 11/07 Still has rash. D/w Dr Galarza. She change the a/b D/W BMT team at [facility]. He is now back in remission. Monitor cbc 10/15 D20 start second cycle of CLAG-M today. D/W side effects and increase morbidity and mortality with the second cycle. He agreed . I will be OOT . Dr Newell will see him till thursday. 10/14: D19. patient started to receive Clarabine but the pump malfunction causing the chemo to spill on the floor. the chemo is being STAT ordered again and will arrive tomorrow morning. 10/13: bone marrow flow shows 70% blasts. d/w patient, repeating induction with CLAG-M chemotherapy or enrolling in a clinical trial. patient would like to try a second induction with CLAG-M. will give Neupogen today and start tomorrow. 10/12: Mildly tachycardic today in the 110's, but no fever. PRBC x 2 ordered today. [employer] replacing potassium per protocol for level of 3.2. Will monitor blood counts, heart rate. Plan for repeat BMB on this upcoming week. 10/09: bone marrow biopsy today. 1 unit platelets, 2 units pRBC. spiked fever 103F. cefepime started. spoke with ID, who advised me to start Daptomycin and Micafungin. transferred to ICU after becoming tachy in 140s 09/26: Start on CLAG-M chemotherapy for relapsed AML. Received Neupogen yesterday. He spiked a fever this afternoon of 101.3. BC, UA, and CXR ordered. Will start pt on Cefepime. Await BC results. History: 11/04: AML Diagnosis made. 46XY, +NPM1 mutation detected, FLT3 negative-- indicates favorable prognosis. 11/05-11/28: Initial induction with MELL-C and idarubicin (7+3). STAT Leukapheresis due to leukostasis. On D25, repeat bone marrow showed residual leukemia. 12/06-12/27: Re-induction with FLANG chemotherapy. Repeat bone marrow biopsy negative for residual AML. Patient in Complete Remission 01/06-01/10: C1 consolidation chemotherapy with Mell-C. 02/17-02/21: C2 consolidation chemotherapy with MELL-C. 03/25-03/30: C3 consolidation chemotherapy with MELL-C 04/28-05/02: C4 consolidation chemo with MELL-C (2) Diabetes Status: Acute Plan: --on Metformin Assessment 46 y/o male admitted for salvage chemotherapy for relapsed AML, now in remission , waiting on count recovery Problem Qualifiers (1) Diabetes: Qualified Code: E11.9 - Type 2 diabetes mellitus without complication, without long-term current use of insulin Valarie Lopez November 27, 2016 10:51 Alexandra Olea MD November 27, 2016 23:18
== END 2016-11-27 09:40 | disposition home or self-care (01) | DRG 846 ==
LOC: HOCB 09-25 07:54 → HOCA 09-25 08:39 → HOCB 09-25 10:57 → HOCA 09-30 20:33 → HCVR 10-09 20:15 → HOCB 10-12 21:17 → HOCA 10-28 21:55
PROVIDERS: ADMIT Internal Medicine Hematology & Oncology; ATTEND Internal Medicine Hematology & Oncology
PROC: 3E04305 Introduction of Other Antineoplastic into Central Vein, Percutaneous Approach (ICD-10-PCS; principal; 2016-09-26)
PROC: 30233R1 Transfusion of Nonautologous Platelets into Peripheral Vein, Percutaneous Approach (ICD-10-PCS; 2016-09-28)
PROC: 30233N1 Transfusion of Nonautologous Red Blood Cells into Peripheral Vein, Percutaneous Approach (ICD-10-PCS; 2016-10-01)
PROC: 07DR3ZX Extraction of Iliac Bone Marrow, Percutaneous Approach, Diagnostic (ICD-10-PCS; 2016-10-09)
PROC: 05PY33Z Removal of Infusion Device from Upper Vein, Percutaneous Approach (ICD-10-PCS; 2016-11-03)
PROC: 02HV33Z Insertion of Infusion Device into Superior Vena Cava, Percutaneous Approach (ICD-10-PCS; 2016-11-03)
PROC: 07DR3ZX Extraction of Iliac Bone Marrow, Percutaneous Approach, Diagnostic (ICD-10-PCS; 2016-11-04)
DX: Z51.11 Encounter for antineoplastic chemotherapy (principal); A41.59 Other Gram-negative sepsis; A41.89 Other specified sepsis; C92.Z2 Other myeloid leukemia, in relapse; D61.818 Other pancytopenia; B37.0 Candidal stomatitis; F41.9 Anxiety disorder, unspecified; E78.00 Pure hypercholesterolemia, unspecified; F90.9 Attention-deficit hyperactivity disorder, unspecified type; K59.00 Constipation, unspecified; E11.9 Type 2 diabetes mellitus without complications; I10 Essential (primary) hypertension; N28.9 Disorder of kidney and ureter, unspecified; E87.6 Hypokalemia; E83.39 Other disorders of phosphorus metabolism; F32.9 Major depressive disorder, single episode, unspecified; R19.7 Diarrhea, unspecified; M54.30 Sciatica, unspecified side; M85.80 Other specified disorders of bone density and structure, unspecified site; R09.02 Hypoxemia; R51 Headache; L27.0 Generalized skin eruption due to drugs and medicaments taken internally; Z79.84 Long term (current) use of oral hypoglycemic drugs; T36.8X5A Adverse effect of other systemic antibiotics, initial encounter; T45.1X5A Adverse effect of antineoplastic and immunosuppressive drugs, initial encounter
CPT/HCPCS: 36430; 36569; 36590; 70450; 71010; 71020; 72072; 72110; 72158; 76937; 77001; 80048; 80053; 80202; 81001; 81245; 81310; 82248; 82550; 82565; 82728; 82947; 82948; 83615; 83735; 84100; 84132; 84484; 84550; 85007; 85014; 85018; 85025; 85027; 85097; 85384; 85610; 85730; 86644; 86850; 86900; 86901; 86920; 86945; 86965; 87040; 87071; 87076; 87086; 87205; 87493; 87804; 88184; 88185; 88237; 88264; 88280; 88305; 88311; 88313; 93005; 93306; 94664; 96523; A9577; C1751; C1894; C9113; G0463; J0692; J0780; J0878; J1100; J1170; J1442; J1450; J1626; J1642; J1815; J1940; J2185; J2212; J2248; J2405; J2543; J2765; J2920; J2997; J3370; J3480; J7030; J7040; J7050; J7060; J7512; J9065; J9100; J9293; P9037; P9040; P9052; Q0167

== ENCOUNTER 2016-12-05 12:01 | Inpatient (IN) | payer BC ==
[~2016-12-05] VITALS: Ht 180.3 cm; Wt 113.2 kg
[~2016-12-05 12:01] MED LIST changes: +AMLO10TA2 PO; +DIAZ10TA PO; -LEVA750T PO; +MULT-135 PO; -OXYC1CAP PO; +OXYC1TAB63 PO
[2016-12-08 08:00] VITALS: BP 135/86; PULSE 100; RESP 20; TEMP 96.5; O2SAT 97
[2016-12-08] MEDS ORDERED: SODIUM CHLORIDE 0.9% FLUSH 10 ML FLUSH IVF PRN ×2 (08:15)
[2016-12-08 08:52] LABS: AUTOMATED NEUTROPHIL # 3.3 TH/MM3 (1.8-7.7); BASOPHIL # 0.1 TH/MM3 (0-0.2); EOSINOPHIL % 0.6 % (0.0-4.0); HEMATOCRIT 29.3 % (39.0-51.0); LYMPH % 11.5 % (9.0-44.0); LYMPHOCYTE # 0.6 TH/MM3 (1.0-4.8); MEAN CELL VOLUME 82.7 FL (80.0-100.0); MEAN CORPUSCULAR HGB CONC 33.8 % (32.0-36.0); NEUT % 64.9 % (16.0-70.0); PLATELET COUNT 82 TH/MM3 (150-450); RED BLOOD COUNT 3.54 MIL/MM3 (4.50-5.90); RED CELL DISTRIBUTION WIDTH 16.4 % (11.6-17.2)
[2016-12-08 08:57] LABS: HEMO FLAGS AUTO DIFF
[2016-12-08] MEDS: SODIUM CHLORIDE 0.9% FLUSH 10 ML FLUSH IVF SCH (09:00)
[2016-12-08 09:04] LABS: ANION GAP 8 MEQ/L (5-15); AST (GOT) 16 U/L (15-37); BICARBONATE 30.5 MEQ/L (21.0-32.0); BLOOD UREA NITROGEN 14 MG/DL (7-18); CHLORIDE 101 MEQ/L (98-107); GLOMERULAR FILTRATION RATE 100 ML/MIN (>89); POTASSIUM 3.8 MEQ/L (3.5-5.1); SODIUM (NA) 139 MEQ/L (136-145)
[2016-12-08 09:05] LABS: ALT (GPT) 29 U/L (12-78)
[2016-12-08 09:07] LABS: ALKALINE PHOSPHATASE 126 U/L (45-117); TOTAL BILIRUBIN ADULT 0.6 MG/DL (0.2-1.0)
[2016-12-08 09:38] LABS: BANDS 6 % (0-6); BASOPHILS 1 % (0-2); CORRECTED NUCLEATED RBC 1 /100 WBC (0-0); MYELOCYTES 3 % (0-0); NEUTROPHIL # MANUAL DIFF 3.8 TH/MM3 (1.8-7.7); POLYS (SEG NEUTROPHILS) 67 % (16-70); WBC DIFF SAMPLE 100
[2016-12-08 09:39] LABS: PLATELET ESTIMATE SMEAR LOW (NORMAL); PLATELET MORPHOLOGY NORMAL (NORMAL); SCAN/DIFF FINAL DIFF MANUAL
[2016-12-08] MEDS ORDERED: POTA-163 PO (11:56)
[2016-12-08] MEDS ORDERED: OXYC1CAP PO (11:58)
[2016-12-08] MEDS ORDERED: ATEN100T PO (11:59)
[2016-12-08 12:40] VITALS: BP 136/82; PULSE 92; RESP 20; TEMP 96.2; O2SAT 96
[2016-12-08] MEDS ORDERED: GADODIAMIDE PF 287 MG/ML 5 ML VIAL (for RAD MRI) IV ONE (13:08)
[2016-12-08] MEDS: DEXAMETHASONE SOD PHOS 0.1% OPHT SOLN 5 ML BTL EACH EYE SCH ×3 (13:54→22:58)
--- NOTE | 2016-12-08 13:54 | RADRPT ---
EXAM DATE/TIME: 12/08/2016 12:17 This report includes an Addendum and supersedes previous reports for this exam. [facility] COMPARISON: No previous studies available for comparison. INDICATIONS : Severe sacral pain. CONTRAST: 21 cc Omniscan (gadodiamide) IV MEDICAL HISTORY : Leukemia. Diabetes mellitus type 2. AML SURGICAL HISTORY : Tonsillectomy. Port placed ENCOUNTER: Sequela ACUITY: > 1 year PAIN SCORE: 6/10 LOCATION: Sacral TECHNIQUE: Multiplanar, multisequence magnetic resonance imaging of the pelvis was performed. FINDINGS: Marrow signal in the lumbar spine, pelvis and hips is markedly inhomogeneous. There is no evidence f or sacral insufficiency fracture. SI joints are normal. There is no evidence for adenopathy in the inguinal region or pelvis. CONCLUSION: Inhomogeneous marrow consistent with lymphoproliferative disorder. Ricky Ceron MD FACR on December 08, 2016 at 13:43 Board Certified Radiologist. This report was verified electronically. ADDENDUM: Circumscribed 7 mm focus seen on the iliac side, subchondral region of the right sacroiliac joint, se mary 15 image 19. This is potentially a subchondral cyst but does seem to enhance. A similar finding measuring about 3.5 mm in size involves the tip of the coccyx, series 2 image 16. I suspect these are probably benign and not contributing to any pain but a followup pelvis MRI with and without contrast is recommended in 6 months. Eric Ontiveros MD on December 09, 2016 at 9:49 Board Certified Radiologist. This report was verified electronically.
[2016-12-08] MEDS: DEXAMETHASONE INJ 20 MG, GRANISETRON INJ 1 MG in SODIUM CHLORIDE 0.9% INJ 50 ML IV SCH (13:55)
[2016-12-08] MEDS: CYTARABINE IV SCH (14:41)
[2016-12-08] MEDS: SODIUM CHLOR 0.9% IV SCH (14:41)
[2016-12-08 16:10] VITALS: BP 123/69; PULSE 96; RESP 18; TEMP 97.4; O2SAT 97
[2016-12-08] MEDS: INSULIN ASPART SUPPLEMENTAL SCALE SQ SCH ×2 (16:53→22:17)
[2016-12-08] MEDS ORDERED: PROCHLORPERAZINE INJ 10 MG/2 ML VIAL IV ONE (18:00)
[2016-12-08 19:20] VITALS: BP 134/78; PULSE 92; RESP 16; TEMP 97.6; O2SAT 95
[2016-12-08 20:00] VITALS: BP 139/88; PULSE 87; RESP 16; TEMP 98.2; O2SAT 98
[2016-12-08] MEDS ORDERED: DIAZEPAM 5 MG TAB PO ONE (20:00)
[2016-12-08] MEDS: DOCUSATE SODIUM 100 MG CAP PO SCH (21:00)
[2016-12-08] MEDS: DIAZEPAM 10 MG TAB PO PRN (22:13)
[2016-12-08] MEDS ORDERED: ATENOLOL 100 MG TAB PO ONE (23:00)
[2016-12-09] VITALS: BP 129/80; PULSE 89; RESP 16; TEMP 97.4; O2SAT 93
[2016-12-09] MEDS: SODIUM CHLOR 0.9% 1000 ML INJ 1,000 ML IV SCH ×3 (00:42→21:13)
[2016-12-09] MEDS: SODIUM CHLOR 0.9% IV SCH (02:59)
[2016-12-09] MEDS: CYTARABINE IV SCH (02:59)
[2016-12-09 04:00] VITALS: BP 141/86; PULSE 87; RESP 18; TEMP 97.5; O2SAT 96
--- NOTE | 2016-12-09 05:49 | MH ---
cc: JOSEF OLEA M.D. DATE OF ADMISSION: 12/08/2016 REASON FOR ADMISSION High-dose Ana Paula-C consolidation chemotherapy for relapsed acute myeloid leukemia. HISTORY OF PRESENT ILLNESS Edgar is a 46-year-old male. In October of 2015 he was diagnosed with acute myeloid leukemia with normal chromosome 46XY. The molecular markers NPM1 was positive and FLT3 was negative. The patient had induction chemotherapy with idarubicin and Ana Paula-C and the patient failed to go into remission. He underwent reinduction chemotherapy with FLANG-M on December 07, 2015. The patient went into remission with the reinduction chemotherapy. The molecular marker NPM1 became negative. Subsequent to that the patient had consolidation chemotherapy with high-dose Ana Paula-C for four cycles. He completed consolidation chemotherapy in May 2016. He was referred to [facility] for the allogeneic bone marrow transplant. The patient had elected to defer the transplant and will consider it if he relapses. The patient had a first relapse of the acute myeloid leukemia in September. He was treated with CLANG-M salvage chemotherapy. The repeat bone marrow biopsy still showed persistent leukemia and the patient was given second cycle of CLANG-M chemotherapy on 10/15/16. The day 21 bone marrow biopsy showed that he went into remission. The patient stayed in the hospital for salvage chemotherapy for almost 65 days. He was recently discharged to home. The patient has agreed to undergo allogeneic bone marrow transplant. He has two full match unrelated donor available . The patient has been undergoing workup for the allogeneic bone marrow transplant at [facility]. The patient recently had dental workup done in preparation for the bone marrow transplant and the patient now has been cleared by the dentist for the transplant. The earliest the patient could be admitted for allogeneic bone marrow transplant is December 24 which is roughly 2-1/2 months since his last chemotherapy. Therefore the patient is now admitted for the consolidation high-dose Ana Paula-C chemotherapy today. REVIEW OF SYSTEMS The patient has developed a rash on his face and also on his arms and chest. He thinks that it is due to the mouthwash he has developed a rash. The mouthwash was given by the dentist. The patient has stopped the mouthwash and his rash is fading away now. He also is complaining of severe tail bone pain. He cannot lie on his back because of the discomfort. The patient has a history of perianal fistula. He denies any discharge from that area. The patient denies any nausea, vomiting or diarrhea. He has lost significant amount of weight from his last admission which he claims is due to the poor hospital food. He states that at home he has been eating good. He has aversion to the hospital food. He denies any headaches. He denies any nausea or vomiting. He denies any other bone pain. The rest of the review of systems is negative. PAST MEDICAL HISTORY 1. Acute myeloid leukemia. 2. Hemochromatosis. 3. ADHD. 4. Hypercholesterolemia. 5. Anxiety disorder. PAST SURGICAL HISTORY 1. [id number] placement which was removed due to the infection. 2. PICC line. 3. Tonsillectomy. 4. Undescended testis. 5. Colonoscopy. 6. Cardiac catheterization. 7. Anal sphincterotomy. ALLERGIES None. MEDICATIONS Please see EMR. FAMILY HISTORY Father from [place]. Mother from metastatic lung cancer. The patient has one brother who and another brother who is alive and well. The patient has six sisters, five , none from cancer. The patient has two daughters; both are alive and well. SOCIAL HISTORY The patient is , lives with his . He does not smoke cigarettes and does not drink alcohol. PHYSICAL EXAMINATION GENERAL: He is a well-developed, well-nourished white male in no apparent distress. VITAL SIGNS: Temperature 96.5, heart rate is 100, blood pressure 135/86, O2 saturation 97% on room air. HEENT: PERRLA, EOMI, anicteric. No oral lesions are noted. NECK: No lymphadenopathy noted. LUNGS: Clear. No wheezing, rhonchi or rales. HEART: Regular rate and rhythm. ABDOMEN: Soft, nontender. No hepatosplenomegaly. EXTREMITIES: No pedal edema. NEUROLOGY: Awake, alert, oriented x 3. SKIN: Diffuse maculopapular rash noted on the face, neck, both arms and the upper trunk. ASSESSMENT 1. First relapse of acute myeloid leukemia, status post salvage chemotherapy, currently in remission. 2. ADHD. 3. Hemochromatosis. 4. Hypercholesterolemia. 5. Anxiety disorder. 6. Maculopapular rash due to oral mouthwash. PLAN I have discussed with the patient and his regarding the need for high-dose consolidation chemotherapy. The patient last had chemotherapy on October 15. The earliest he could have bone marrow transplant is on December 24 which is roughly 10 weeks from his last chemotherapy. The patient still requires organ testing and bone marrow biopsy in preparation for the bone marrow transplant. He has two unrelated full matches available. The timing and logistics of all this will put him at risk for another relapse without the consolidation chemotherapy. The FLT3 on relapse was positive as well NPM1 was positive. However, after the second course of the salvage chemotherapy CLANG-M, FLT3 became negative but the NPM1 is still positive. Given that he is still not in molecular remission, he remains at a high risk for relapse. Therefore my recommendation is for high-dose Ana Paula-C consolidation chemotherapy. The patient is admitted for that. We will start the chemotherapy today. The high-dose Ana Paula-C chemotherapy will be given every 12 hours on day #1, 3 and 5. Once he completes the chemotherapy, then he will be discharged to home and will be managed as an outpatient. We will continue his regular medications. However, I will get an MRI of the pelvis to evaluate for the sacral coccygeal pain that he has been having. I am wondering whether the patient has developed any insufficient fracture of the sacrum or perianal fistula or abscess. The patient had a blood test today. The CBC showed a white count of 5, hemoglobin 9.9, hematocrit 29.3, platelet count is 82. The differential count does not show any peripheral blast. The comprehensive metabolic profile is completely normal except that the glucose is 207. Further recommendations will be based on his hospital stay. I have discussed with the charge nurse regarding the chemotherapy. Katlin Olea MD /YOVANNY /8:53 PM /5:18 AM ELZBIETA
[2016-12-09] MEDS: INSULIN ASPART SUPPLEMENTAL SCALE SQ SCH ×4 (07:00→21:10)
[2016-12-09 08:00] VITALS: BP 120/78; PULSE 92; RESP 20; TEMP 96.3; O2SAT 96
[2016-12-09 08:19] LABS: BASOPHIL % 0.3 % (0.0-2.0); HEMATOCRIT 24.9 % (39.0-51.0); LYMPH % 3.9 % (9.0-44.0); LYMPHOCYTE # 0.2 TH/MM3 (1.0-4.8); MEAN CORPUSCULAR HEMOGLOBIN 28.5 PG (27.0-34.0); MEAN CORPUSCULAR HGB CONC 34.7 % (32.0-36.0); MONO % 8.2 % (0.0-8.0); NEUT % 87.6 % (16.0-70.0); PLATELET COUNT 82 TH/MM3 (150-450); RED BLOOD COUNT 3.04 MIL/MM3 (4.50-5.90); RED CELL DISTRIBUTION WIDTH 15.9 % (11.6-17.2); WHITE BLOOD COUNT 4.6 TH/MM3 (4.0-11.0)
[2016-12-09 08:22] LABS: HEMO FLAGS AUTO DIFF
[2016-12-09 08:38] LABS: BICARBONATE 29.7 MEQ/L (21.0-32.0); POTASSIUM 3.9 MEQ/L (3.5-5.1)
[2016-12-09] MEDS: SODIUM CHLORIDE 0.9% FLUSH 10 ML FLUSH IVF SCH (09:00)
[2016-12-09 09:05] LABS: PLATELET ESTIMATE SMEAR LOW (NORMAL); PLATELET MORPHOLOGY NORMAL (NORMAL); SCAN/DIFF AUTO DIFF CONFIRMED
[2016-12-09] MEDS: SERTRALINE HCL 50 MG TAB PO SCH (09:09)
[2016-12-09] MEDS: metFORMIN HCL 850 MG TAB PO SCH (09:09)
[2016-12-09] MEDS: POTASSIUM CHLORIDE 20 MEQ CONTROLLED RELEASE TAB PO SCH (09:09)
[2016-12-09] MEDS: DEXAMETHASONE SOD PHOS 0.1% OPHT SOLN 5 ML BTL EACH EYE SCH ×4 (09:09→21:10)
[2016-12-09] MEDS: DOCUSATE SODIUM 100 MG CAP PO SCH ×2 (09:09→21:00)
--- NOTE | 2016-12-09 10:13 | PD.ONC.PN ---
Subjective Subjective Remarks Afebrile overnight. Patient tolerated chemotherapy yesterday. He had some nausea yesterday, but feels better today. Ate breakfast this AM. Rash on face and chest resolving today. Objective Data Date Time Temp Pulse Resp B/P Pulse Ox O2 Delivery O2 Flow Rate FiO2 12/09/16 08:00 96.3 92 20 120/78 96 12/09/16 04:00 97.5 87 18 141/86 96 12/09/16 00:00 97.4 89 16 129/80 93 12/08/16 20:00 98.2 87 16 139/88 98 12/08/16 19:20 97.6 92 16 134/78 95 12/08/16 16:10 97.4 96 18 123/69 97 12/08/16 12:40 96.2 92 20 136/82 96 Result Diagram: 12/09/16 0700 12/09/16 0700 Laboratory Results Laboratory Tests Test 12/09/16 07:00 White Blood Count 4.6 TH/MM3 Red Blood Count 3.04 MIL/MM3 Hemoglobin 8.6 GM/DL Hematocrit 24.9 % Mean Corpuscular Volume 82.0 FL Mean Corpuscular Hemoglobin 28.5 PG Mean Corpuscular Hemoglobin 34.7 % Concent Red Cell Distribution Width 15.9 % Platelet Count 82 TH/MM3 Mean Platelet Volume 8.5 FL Neutrophils (%) (Auto) 87.6 % Lymphocytes (%) (Auto) 3.9 % Monocytes (%) (Auto) 8.2 % Eosinophils (%) (Auto) 0.0 % Basophils (%) (Auto) 0.3 % Neutrophils # (Auto) 4.0 TH/MM3 Lymphocytes # (Auto) 0.2 TH/MM3 Monocytes # (Auto) 0.4 TH/MM3 Eosinophils # (Auto) 0.0 TH/MM3 Basophils # (Auto) 0.0 TH/MM3 CBC Comment AUTO DIFF Differential Comment AUTO DIFF CONFIRMED Platelet Estimate LOW Platelet Morphology Comment NORMAL Basophilic Stippling FAINT Sodium Level 138 MEQ/L Potassium Level 3.9 MEQ/L Chloride Level 101 MEQ/L Carbon Dioxide Level 29.7 MEQ/L Anion Gap 7 MEQ/L Blood Urea Nitrogen 15 MG/DL Creatinine 0.60 MG/DL Estimat Glomerular Filtration 144 ML/MIN Rate Random Glucose 190 MG/DL Calcium Level 9.4 MG/DL Administered Medications Medications (Trade) Dose Ordered Sig/Génesis Route PRN Reason Start Time Stop Time Status Last Admin Dose Admin Sodium Chloride (NS Flush) DAILY IVF 12/08/16 09:00 12/08/16 09:00 Metformin HCl (Glucophage) 850 mg DAILY PO 12/09/16 09:00 12/09/16 09:09 Sertraline HCl (Zoloft) 50 mg DAILY PO 12/09/16 09:00 12/09/16 09:09 Docusate Sodium (Colace) 100 mg BID PO 12/08/16 21:00 12/09/16 09:09 Potassium Chloride (KCl) 20 meq DAILY PO 12/09/16 09:00 12/09/16 09:09 Diazepam (Valium) 10 mg Q12H PRN PO anxiety 12/08/16 10:15 12/08/16 22:13 Oxycodone HCl (Roxicodone) 5 mg Q4H PRN PO PAIN SCALE 1 TO 10 12/08/16 10:15 12/08/16 22:13 Dexamethasone Sodium Phosphate 2 drop 2 drop QID EACH EYE 12/08/16 13:00 12/15/16 09:01 12/09/16 09:09 Dexamethasone Sodium Phosphate 20 mg/Granisetron HCl 1 mg/Sodium Chloride 56 ml @ 336 mls/hr Q48H IV 12/08/16 11:30 12/12/16 11:39 12/08/16 13:55 Sodium Chloride (NS 1000 ml Inj) 1,000 ml @ 125 mls/hr Q8H IV 12/08/16 23:45 12/09/16 00:42 Objective Remarks GENERAL: middle aged male, sitting up in bed in [facility]. SKIN: Warm and dry. some hyperpigmentation noted on face and chest. no papules. HEAD: Normocephalic. EYES: No injection or drainage. NECK: Supple, trachea midline. CARDIOVASCULAR: Regular rate and rhythm RESPIRATORY: Breath sounds equal bilaterally. No accessory muscle use. GASTROINTESTINAL: Abdomen soft, non-tender, nondistended. EXTREMITIES: No cyanosis NEUROLOGICAL: No obvious focal deficit. Awake, alert, and oriented x3. Assessment/Plan Problem List: (1) AML (acute myeloid leukemia) Status: Acute Plan: 12/09: off day. no events. 12/08: admission Dose 1A and 1B HiDaC --admitted for consolidation chemotherapy with high dose Ana Paula-C (2) Type 2 diabetes mellitus Status: Acute Plan: --on Metformin 850mg PO daily --on Novolog SSI low (3) Hypertension Status: Acute Plan: -on Atenolol 100mg PO daily Assessment 46y/o male admitted for high-dose Ana Paula-C consolidation chemotherapy for relapsed acute myeloid leukemia. h/o Hemochromatosis. ADHD. Hypercholesterolemia. anxiety disorder. Attending Statement Patient was complaining of nausea. He's tolerating the chemotherapy well so far. No Transfusion support needed today. Continue chemotherapy as planned Radiological studies reviewed. Problem Qualifiers (1) Type 2 diabetes mellitus: Qualified Code: E11.9 - Type 2 diabetes mellitus without complication, without long-term current use of insulin Janet Holm Dec 09, 2016 10:13 Alexandra Olea MD Dec 10, 2016 01:00
[2016-12-09] MEDS ORDERED: METOCLOPRAMIDE HCL 10 MG/2 ML VIAL IV PUSH PRN (10:45)
[2016-12-09 12:33] VITALS: BP 134/79; PULSE 89; RESP 20; TEMP 96.5; O2SAT 95
[2016-12-09 16:34] VITALS: BP 143/83; PULSE 93; RESP 20; TEMP 96.5; O2SAT 96
[2016-12-09 20:00] VITALS: BP 113/59; PULSE 102; RESP 16; TEMP 96.8; O2SAT 94
[2016-12-09] MEDS: ATENOLOL 100 MG TAB PO SCH (21:09)
[2016-12-09] MEDS: DIAZEPAM 10 MG TAB PO PRN (21:10)
[2016-12-10] VITALS: BP 130/79; PULSE 92; RESP 16; TEMP 97.1; O2SAT 97
[2016-12-10 04:45] VITALS: BP 128/79; PULSE 88; RESP 16; TEMP 97; O2SAT 98
[2016-12-10 05:57] LABS: AUTOMATED NEUTROPHIL # 2.4 TH/MM3 (1.8-7.7); BASOPHIL % 0.7 % (0.0-2.0); EOSINOPHIL % 1.6 % (0.0-4.0); HEMATOCRIT 22.8 % (39.0-51.0); LYMPHOCYTE # 0.1 TH/MM3 (1.0-4.8); MEAN CORPUSCULAR HEMOGLOBIN 27.8 PG (27.0-34.0); MEAN CORPUSCULAR HGB CONC 33.5 % (32.0-36.0); MONO % 11.1 % (0.0-8.0); NEUT % 84.6 % (16.0-70.0); PLATELET COUNT 62 TH/MM3 (150-450); RED BLOOD COUNT 2.75 MIL/MM3 (4.50-5.90); RED CELL DISTRIBUTION WIDTH 15.5 % (11.6-17.2); WHITE BLOOD COUNT 2.9 TH/MM3 (4.0-11.0)
[2016-12-10 06:00] LABS: HEMO FLAGS AUTO DIFF
[2016-12-10 06:38] LABS: BICARBONATE 30.4 MEQ/L (21.0-32.0); POTASSIUM 3.5 MEQ/L (3.5-5.1)
[2016-12-10] MEDS: INSULIN ASPART SUPPLEMENTAL SCALE SQ SCH ×4 (07:00→22:40)
[2016-12-10 07:03] LABS: BANDS 1 % (0-6); BASOPHILS 1 % (0-2); EOSINOPHILS 3 % (0-4); METAMYELOCYTES 1 % (0-1); NEUTROPHIL # MANUAL DIFF 2.6 TH/MM3 (1.8-7.7); PLATELET ESTIMATE SMEAR LOW (NORMAL); PLATELET MORPHOLOGY NORMAL (NORMAL); POLYS (SEG NEUTROPHILS) 86 % (16-70); SCAN/DIFF FINAL DIFF MANUAL; WBC DIFF SAMPLE 100
[2016-12-10] MEDS: SODIUM CHLOR 0.9% 1000 ML INJ 1,000 ML IV SCH ×2 (07:45→13:03)
[2016-12-10 08:00] VITALS: BP 129/88; PULSE 90; RESP 19; TEMP 95.8; O2SAT 97
[2016-12-10] MEDS: DOCUSATE SODIUM 100 MG CAP PO SCH ×2 (08:34→22:29)
[2016-12-10] MEDS: SERTRALINE HCL 50 MG TAB PO SCH (08:35)
[2016-12-10] MEDS: POTASSIUM CHLORIDE 20 MEQ CONTROLLED RELEASE TAB PO SCH (08:35)
[2016-12-10] MEDS: DEXAMETHASONE SOD PHOS 0.1% OPHT SOLN 5 ML BTL EACH EYE SCH ×4 (08:54→22:28)
[2016-12-10] MEDS: SODIUM CHLORIDE 0.9% FLUSH 10 ML FLUSH IVF SCH (09:00)
[2016-12-10] MEDS: DEXAMETHASONE INJ 20 MG, GRANISETRON INJ 1 MG in SODIUM CHLORIDE 0.9% INJ 50 ML IV SCH (11:39)
[2016-12-10] MEDS: SODIUM CHLOR 0.9% IV SCH (12:19)
[2016-12-10] MEDS: CYTARABINE IV SCH (12:19)
[2016-12-10 13:08] VITALS: BP 130/74; PULSE 88; RESP 16; TEMP 97.6; O2SAT 94
--- NOTE | 2016-12-10 14:57 | PD.ONC.PN ---
Subjective Subjective Remarks Afebrile overnight. "I feel pretty good today" Denies nausea, SOB or chest pain Objective Data Date Time Temp Pulse Resp B/P Pulse Ox O2 Delivery O2 Flow Rate FiO2 12/10/16 13:08 97.6 88 16 130/74 94 12/10/16 08:00 95.8 90 19 129/88 97 12/10/16 04:45 97.0 88 16 128/79 98 12/10/16 00:00 97.1 92 16 130/79 97 12/09/16 20:00 96.8 102 16 113/59 94 12/09/16 16:34 96.5 93 20 143/83 96 12/10/16 12/10/16 12/10/16 07:00 15:00 23:00 Intake Total 480 ml Balance 480 ml Result Diagram: 12/10/16 0500 12/10/16 0500 Laboratory Results Laboratory Tests Test 12/10/16 05:00 White Blood Count 2.9 TH/MM3 Red Blood Count 2.75 MIL/MM3 Hemoglobin 7.6 GM/DL Hematocrit 22.8 % Mean Corpuscular Volume 83.0 FL Mean Corpuscular Hemoglobin 27.8 PG Mean Corpuscular Hemoglobin 33.5 % Concent Red Cell Distribution Width 15.5 % Platelet Count 62 TH/MM3 Mean Platelet Volume 8.2 FL Neutrophils (%) (Auto) 84.6 % Lymphocytes (%) (Auto) 2.0 % Monocytes (%) (Auto) 11.1 % Eosinophils (%) (Auto) 1.6 % Basophils (%) (Auto) 0.7 % Neutrophils # (Auto) 2.4 TH/MM3 Lymphocytes # (Auto) 0.1 TH/MM3 Monocytes # (Auto) 0.3 TH/MM3 Eosinophils # (Auto) 0.0 TH/MM3 Basophils # (Auto) 0.0 TH/MM3 CBC Comment AUTO DIFF Differential Total Cells 100 Counted Neutrophils % (Manual) 86 % Band Neutrophils % 1 % Lymphocytes % 2 % Monocytes % 6 % Eosinophils % 3 % Basophils % 1 % Neutrophils # (Manual) 2.6 TH/MM3 Metamyelocytes 1 % Differential Comment FINAL DIFF MANUAL Platelet Estimate LOW Platelet Morphology Comment NORMAL Red Cell Morphology Comment NORMAL Sodium Level 142 MEQ/L Potassium Level 3.5 MEQ/L Chloride Level 104 MEQ/L Carbon Dioxide Level 30.4 MEQ/L Anion Gap 8 MEQ/L Blood Urea Nitrogen 10 MG/DL Creatinine 0.55 MG/DL Estimat Glomerular Filtration 159 ML/MIN Rate Random Glucose 165 MG/DL Calcium Level 8.4 MG/DL Administered Medications Medications (Trade) Dose Ordered Sig/Géneiss Route PRN Reason Start Time Stop Time Status Last Admin Dose Admin Sodium Chloride (NS Flush) DAILY IVF 12/08/16 09:00 12/08/16 09:00 Metformin HCl (Glucophage) 850 mg DAILY PO 12/09/16 09:00 Hold 12/09/16 09:09 Sertraline HCl (Zoloft) 50 mg DAILY PO 12/09/16 09:00 12/10/16 08:35 Docusate Sodium (Colace) 100 mg BID PO 12/08/16 21:00 12/10/16 08:34 Potassium Chloride (KCl) 20 meq DAILY PO 12/09/16 09:00 12/10/16 08:35 Atenolol (Tenormin) 100 mg DAILY PO 12/09/16 21:00 12/09/16 21:09 Diazepam (Valium) 10 mg Q12H PRN PO anxiety 12/08/16 10:15 12/09/16 21:10 Oxycodone HCl (Roxicodone) 5 mg Q4H PRN PO PAIN SCALE 1 TO 10 12/08/16 10:15 12/09/16 21:10 Dexamethasone Sodium Phosphate 2 drop 2 drop QID EACH EYE 12/08/16 13:00 12/15/16 09:01 12/10/16 13:02 Cytarabine 6840 mg/Sodium Chloride 250 ml @ 83.333 mls/ hr Q12H IV 12/10/16 12:00 12/11/16 02:59 12/10/16 12:19 Dexamethasone Sodium Phosphate 20 mg/Granisetron HCl 1 mg/Sodium Chloride 56 ml @ 336 mls/hr Q48H IV 12/08/16 11:30 12/12/16 11:39 12/10/16 11:39 Sodium Chloride (NS 1000 ml Inj) 1,000 ml @ 125 mls/hr Q8H IV 12/08/16 23:45 12/10/16 13:03 Objective Remarks GENERAL: Middle aged male, resting in bed getting chemotherapy. He appears comfortable. SKIN: Warm and dry. HEAD: Normocephalic. EYES: No injection or drainage. NECK: Supple, trachea midline. CARDIOVASCULAR: Regular rate and rhythm RESPIRATORY: Breath sounds equal bilaterally. No accessory muscle use. GASTROINTESTINAL: Abdomen soft, non-tender, nondistended. EXTREMITIES: No cyanosis. No edema. NEUROLOGICAL: No obvious focal deficit. Awake, alert, and oriented x3. Assessment/Plan Problem List: (1) AML (acute myeloid leukemia) Status: Acute Plan: 12/10: Chemo with cytarabine today. Pt states he feels quite well. Hgb 7.6 today. Will transfuse for less than 7.5. Labs in am. 12/09: off day. no events. 12/08: admission Dose 1A and 1B HiDaC --admitted for consolidation chemotherapy with high dose Ana Paula-C (2) Type 2 diabetes mellitus Status: Acute Plan: --on Metformin 850mg PO daily --on Novolog SSI low (3) Hypertension Status: Acute Plan: -on Atenolol 100mg PO daily Assessment 46y/o male admitted for high-dose Ana Paula-C consolidation chemotherapy for relapsed acute myeloid leukemia. h/o Hemochromatosis. ADHD. Hypercholesterolemia. anxiety disorder. Attending Statement Had nausea after the chemotherapy Feels better today Still has tailbone pain No diarrhea Denies any shortness of breath Continue chemotherapy Monitor labs Will follow Problem Qualifiers (1) Type 2 diabetes mellitus: Qualified Code: E11.9 - Type 2 diabetes mellitus without complication, without long-term current use of insulin Valarie Lopez Dec 10, 2016 14:57 Alexandra Olea MD Dec 11, 2016 06:47
[2016-12-10] MEDS: ONDANSETRON HCL 4 MG/2 ML VIAL IV PUSH PRN (18:52)
[2016-12-10 20:00] VITALS: BP 129/70; PULSE 90; RESP 16; TEMP 97.5; O2SAT 95
[2016-12-10] MEDS: DIAZEPAM 10 MG TAB PO PRN (22:31)
[2016-12-10] MEDS: ATENOLOL 100 MG TAB PO SCH (22:35)
[2016-12-11] VITALS (7 sets, daily range): BP systolic 123–188; BP diastolic 75–88; PULSE 52–96; RESP 16–18; TEMP 96.6–98.2; O2SAT 95–100
[2016-12-11] MEDS: SODIUM CHLOR 0.9% IV SCH (00:03)
[2016-12-11] MEDS: CYTARABINE IV SCH (00:03)
[2016-12-11] MEDS: SODIUM CHLOR 0.9% 1000 ML INJ 1,000 ML IV SCH ×3 (00:09→14:21)
[2016-12-11] MEDS: INSULIN ASPART SUPPLEMENTAL SCALE SQ SCH ×4 (06:15→22:01)
[2016-12-11 06:50] LABS: AUTOMATED NEUTROPHIL # 3.6 TH/MM3 (1.8-7.7); BASOPHIL % 0.3 % (0.0-2.0); EOSINOPHIL % 0.2 % (0.0-4.0); HEMATOCRIT 22.7 % (39.0-51.0); LYMPH % 1.3 % (9.0-44.0); LYMPHOCYTE # 0.1 TH/MM3 (1.0-4.8); MEAN CORPUSCULAR HEMOGLOBIN 28.3 PG (27.0-34.0); MONO % 3.4 % (0.0-8.0); NEUT % 94.8 % (16.0-70.0); PLATELET COUNT 75 TH/MM3 (150-450); RED CELL DISTRIBUTION WIDTH 16.2 % (11.6-17.2); WHITE BLOOD COUNT 3.8 TH/MM3 (4.0-11.0)
[2016-12-11 06:54] LABS: HEMO FLAGS AUTO DIFF
[2016-12-11 07:24] LABS: BICARBONATE 31.7 MEQ/L (21.0-32.0); POTASSIUM 3.7 MEQ/L (3.5-5.1)
[2016-12-11 08:30] LABS: BANDS 3 % (0-6); NEUTROPHIL # MANUAL DIFF 3.6 TH/MM3 (1.8-7.7); PLATELET ESTIMATE SMEAR LOW (NORMAL); PLATELET MORPHOLOGY NORMAL (NORMAL); POLYS (SEG NEUTROPHILS) 92 % (16-70); SCAN/DIFF FINAL DIFF MANUAL; WBC DIFF SAMPLE 100
[2016-12-11] MEDS: SODIUM CHLORIDE 0.9% FLUSH 10 ML FLUSH IVF SCH (09:00)
[2016-12-11] MEDS: ATENOLOL 100 MG TAB PO SCH (09:00)
[2016-12-11] MEDS: POTASSIUM CHLORIDE 20 MEQ CONTROLLED RELEASE TAB PO SCH (09:19)
[2016-12-11] MEDS: DOCUSATE SODIUM 100 MG CAP PO SCH ×2 (09:19→21:54)
[2016-12-11] MEDS: SERTRALINE HCL 50 MG TAB PO SCH (09:20)
[2016-12-11] MEDS: DEXAMETHASONE SOD PHOS 0.1% OPHT SOLN 5 ML BTL EACH EYE SCH ×4 (09:23→21:55)
--- NOTE | 2016-12-11 11:15 | PD.ONC.PN ---
Subjective Subjective Remarks Afebrile overnight Had some nausea yesterday after chemotherapy Currently has no nausea Asking about the timing of chemotherapy and when he will go home. Objective Data Date Time Temp Pulse Resp B/P Pulse Ox O2 Delivery O2 Flow Rate FiO2 12/11/16 08:00 96.9 84 16 143/84 98 12/11/16 04:00 96.7 84 16 139/83 95 12/11/16 00:00 97.4 96 16 132/80 96 12/10/16 20:00 97.5 90 16 129/70 95 12/10/16 13:08 97.6 88 16 130/74 94 12/11/16 12/11/16 12/11/16 07:00 15:00 23:00 Intake Total 1258 ml Balance 1258 ml Result Diagram: 12/11/16 0515 12/11/16 0515 Laboratory Results Laboratory Tests Test 12/11/16 05:15 White Blood Count 3.8 TH/MM3 Red Blood Count 2.80 MIL/MM3 Hemoglobin 7.9 GM/DL Hematocrit 22.7 % Mean Corpuscular Volume 81.0 FL Mean Corpuscular Hemoglobin 28.3 PG Mean Corpuscular Hemoglobin 35.0 % Concent Red Cell Distribution Width 16.2 % Platelet Count 75 TH/MM3 Mean Platelet Volume 7.9 FL Neutrophils (%) (Auto) 94.8 % Lymphocytes (%) (Auto) 1.3 % Monocytes (%) (Auto) 3.4 % Eosinophils (%) (Auto) 0.2 % Basophils (%) (Auto) 0.3 % Neutrophils # (Auto) 3.6 TH/MM3 Lymphocytes # (Auto) 0.1 TH/MM3 Monocytes # (Auto) 0.1 TH/MM3 Eosinophils # (Auto) 0.0 TH/MM3 Basophils # (Auto) 0.0 TH/MM3 CBC Comment AUTO DIFF Differential Total Cells 100 Counted Neutrophils % (Manual) 92 % Band Neutrophils % 3 % Lymphocytes % 1 % Monocytes % 4 % Neutrophils # (Manual) 3.6 TH/MM3 Differential Comment FINAL DIFF MANUAL Platelet Estimate LOW Platelet Morphology Comment NORMAL Sodium Level 139 MEQ/L Potassium Level 3.7 MEQ/L Chloride Level 102 MEQ/L Carbon Dioxide Level 31.7 MEQ/L Anion Gap 5 MEQ/L Blood Urea Nitrogen 12 MG/DL Creatinine 0.46 MG/DL Estimat Glomerular Filtration 195 ML/MIN Rate Random Glucose 212 MG/DL Calcium Level 8.8 MG/DL Administered Medications Medications (Trade) Dose Ordered Sig/Génesis Route PRN Reason Start Time Stop Time Status Last Admin Dose Admin Sodium Chloride (NS Flush) DAILY IVF 12/08/16 09:00 12/08/16 09:00 Metformin HCl (Glucophage) 850 mg DAILY PO 12/09/16 09:00 Hold 12/09/16 09:09 Sertraline HCl (Zoloft) 50 mg DAILY PO 12/09/16 09:00 12/11/16 09:20 Docusate Sodium (Colace) 100 mg BID PO 12/08/16 21:00 12/11/16 09:19 Potassium Chloride (KCl) 20 meq DAILY PO 12/09/16 09:00 12/11/16 09:19 Atenolol (Tenormin) 100 mg DAILY PO 12/09/16 21:00 12/10/16 22:35 Diazepam (Valium) 10 mg Q12H PRN PO anxiety 12/08/16 10:15 12/10/16 22:31 Oxycodone HCl (Roxicodone) 5 mg Q4H PRN PO PAIN SCALE 1 TO 10 12/08/16 10:15 12/10/16 22:35 Dexamethasone Sodium Phosphate 2 drop 2 drop QID EACH EYE 12/08/16 13:00 12/15/16 09:01 12/11/16 09:23 Dexamethasone Sodium Phosphate/ Granisetron HCl/ Sodium Chloride (Decadron Inj/ Kytril Inj/NS Inj) 56 ml @ 336 mls/hr Q48H IV 12/08/16 11:30 12/12/16 11:39 12/10/16 11:39 Ondansetron HCl 4 mg 4 mg Q6H PRN IV PUSH NAUSEA 12/08/16 18:00 12/10/16 18:52 Sodium Chloride (NS 1000 ml Inj) 1,000 ml @ 125 mls/hr Q8H IV 12/08/16 23:45 12/11/16 06:15 Objective Remarks GENERAL: Middle aged male, resting in bed watching TV in no distress. SKIN: Warm and dry. HEAD: Normocephalic. EYES: No injection or drainage. NECK: Supple, trachea midline. CARDIOVASCULAR: Regular rate and rhythm RESPIRATORY: Breath sounds equal bilaterally. No accessory muscle use. GASTROINTESTINAL: Abdomen soft, non-tender, nondistended. EXTREMITIES: No cyanosis. No edema. NEUROLOGICAL: No obvious focal deficit. Awake, alert, and oriented x3. Assessment/Plan Problem List: (1) AML (acute myeloid leukemia) Status: Acute Plan: 12/11: Tolerated chemo OK yesterday except for some nausea. CBC OK today. 12/10: Chemo with cytarabine today. Pt states he feels quite well. Hgb 7.6 today. Will transfuse for less than 7.5. Labs in am. 12/09: off day. no events. 12/08: admission Dose 1A and 1B HiDaC --admitted for consolidation chemotherapy with high dose Ana Paula-C (2) Type 2 diabetes mellitus Status: Acute Plan: --on Metformin 850mg PO daily --on Novolog SSI low (3) Hypertension Status: Acute Plan: -on Atenolol 100mg PO daily Assessment 46y/o male admitted for high-dose Ana Paula-C consolidation chemotherapy for relapsed acute myeloid leukemia. h/o Hemochromatosis. ADHD. Hypercholesterolemia. anxiety disorder. Attending Statement Denies any new complaints No nausea or Vomiting Feels better Anxious to go home Re-time chemotherapy for tomorrow Home tomorrow after the chemotherapy Continue same plan We'll follow Problem Qualifiers (1) Type 2 diabetes mellitus: Qualified Code: E11.9 - Type 2 diabetes mellitus without complication, without long-term current use of insulin Valarie Lopez Dec 11, 2016 11:14 Alexandra Olea MD Dec 12, 2016 06:24
[2016-12-11] MEDS ORDERED: diphenhydrAMINE HCL 25 MG CAP PO ONE (13:00)
[2016-12-11] MEDS ORDERED: LORATADINE 10 MG TAB PO ONE (13:15)
[2016-12-11] MEDS: DIAZEPAM 10 MG TAB PO PRN (21:54)
[2016-12-12] MEDS: SODIUM CHLOR 0.9% 1000 ML INJ 1,000 ML IV SCH (01:10)
[2016-12-12] MEDS ORDERED: DEXAMETHASONE INJ 20 MG, GRANISETRON INJ 1 MG in SODIUM CHLORIDE 0.9% INJ 50 ML IV ONE (02:30)
[2016-12-12] MEDS: CYTARABINE IV SCH ×2 (03:09→15:33)
[2016-12-12] MEDS: SODIUM CHLOR 0.9% IV SCH ×2 (03:09→15:33)
[2016-12-12 04:00] VITALS: BP 135/72; PULSE 91; RESP 17; TEMP 97.2; O2SAT 96
[2016-12-12] MEDS: INSULIN ASPART SUPPLEMENTAL SCALE SQ SCH ×3 (06:40→18:51)
[2016-12-12 08:00] VITALS: BP 134/84; PULSE 80; RESP 16; TEMP 97.5; O2SAT 95
[2016-12-12] MEDS: SODIUM CHLORIDE 0.9% FLUSH 10 ML FLUSH IVF SCH (09:00)
[2016-12-12] MEDS: metFORMIN HCL 850 MG TAB PO SCH (10:49)
[2016-12-12] MEDS: SERTRALINE HCL 50 MG TAB PO SCH (10:49)
[2016-12-12] MEDS: DOCUSATE SODIUM 100 MG CAP PO SCH (10:49)
[2016-12-12] MEDS: DEXAMETHASONE SOD PHOS 0.1% OPHT SOLN 5 ML BTL EACH EYE SCH ×3 (10:51→18:42)
[2016-12-12 12:00] VITALS: BP 125/70; PULSE 97; RESP 16; TEMP 97; O2SAT 95
[2016-12-12] MEDS ORDERED: SODIUM CHLOR 0.9% IV SCH (12:00)
[2016-12-12] MEDS ORDERED: CYTARABINE IV SCH (12:00)
--- NOTE | 2016-12-12 13:05 | HHI.DCPOC ---
Discharge Care Plan Diagnosis: (1) AML (acute myeloid leukemia) (2) Type 2 diabetes mellitus (3) Hypertension Goals to Promote Your Health * To prevent worsening of your condition and complications * To maintain your health at the optimal level Directions to Meet Your Goals Take your medications as prescribed Follow your dietary instruction Follow activity as directed Keep your appointments as scheduled Take your immunizations and boosters as scheduled If your symptoms worsen call your PCP, if no PCP go to Urgent Care Center or Emergency Room Smoking is Dangerous to Your Health. Avoid second hand smoke Call the 24-hour hour crisis hotline for domestic abuse at Janet Holm Dec 12, 2016 13:05
--- NOTE | 2016-12-12 13:07 | HHI.DS ---
Discharge Summary Admission Date Dec 08, 2016 at 07:59 Admitting Diagnosis AML (1) AML (acute myeloid leukemia) Diagnosis: Principal Brief History Mr. Cullen is 46 year old male with AML originally diagnosed in October of 2015. The patient achieved a remission in December 2015 and then developed relapse in September 2015. He was readmitted for CLANG-M salvage chemotherapy and entered a second remission. He is being admitted for consolidation chemotherapy. CBC/BMP: 12/11/16 0515 12/11/16 0515 Significant Findings Laboratory Tests Test 12/10/16 12/11/16 05:00 05:15 White Blood Count 2.9 TH/MM3 3.8 TH/MM3 (4.0-11.0) (4.0-11.0) Red Blood Count 2.75 MIL/MM3 2.80 MIL/MM3 (4.50-5.90) (4.50-5.90) Hemoglobin 7.6 GM/DL 7.9 GM/DL (13.0-17.0) (13.0-17.0) Hematocrit 22.8 % 22.7 % (39.0-51.0) (39.0-51.0) Platelet Count 62 TH/MM3 75 TH/MM3 (150-450) (150-450) Neutrophils (%) (Auto) 84.6 % 94.8 % (16.0-70.0) (16.0-70.0) Lymphocytes (%) (Auto) 2.0 % 1.3 % (9.0-44.0) (9.0-44.0) Monocytes (%) (Auto) 11.1 % (0.0-8.0) Lymphocytes # (Auto) 0.1 TH/MM3 0.1 TH/MM3 (1.0-4.8) (1.0-4.8) Neutrophils % (Manual) 86 % (16-70) 92 % (16-70) Lymphocytes % 2 % (9-44) 1 % (9-44) Platelet Estimate LOW (NORMAL) LOW (NORMAL) Creatinine 0.55 MG/DL 0.46 MG/DL (0.60-1.30) (0.60-1.30) Random Glucose 165 MG/DL 212 MG/DL (74-106) (74-106) Calcium Level 8.4 MG/DL (8.5-10.1) Imaging Last Impressions Pelvis MRI 12/08/16 0000 Signed Impressions: Service Date/Time: Thursday, December 08, 2016 12:17 - CONCLUSION: Inhomogeneous marrow consistent with lymphoproliferative disorder. Ricky Ceron MD FACRADDENDUM: Circumscribed 7 mm focus seen on the iliac side, subchondral region of the right sacroiliac joint, series 15 image 19. This is potentially a subchondral cyst but does seem to enhance. A similar finding measuring about 3.5 mm in size involves the tip of the coccyx, series 2 image 16. I suspect these are probably benign and not contributing to any pain but a followup pelvis MRI with and without contrast is recommended in 6 months. Eric Ontiveros MD PE at Discharge please see physical exam from progress note on 12/12/16 Hospital Course Mr. Cullen is a 46 year old male who was admitted on 12/08/16 for consolidation chemotherapy with High-dose MELL-C. He tolerated chemotherapy on days 1, 3, 5 of treatment. His home medications were resumed. he is being discharged in stable condition with instructions for follow up for CBC on Thursday and appointment with Dr. Olea on Thursday. Pt Condition on Discharge: Good Discharge Disposition: Discharge Home Discharge Instructions DIET: Follow Instructions for: As Tolerated, No Restrictions Activities you can perform: Regular-No Restrictions Janet Holm Dec 12, 2016 13:07
--- NOTE | 2016-12-12 14:00 | PD.ONC.PN ---
Subjective Subjective Remarks Afebrile overnight. Patient feeling fatigued today. Minimal nausea. Rash improving. Objective Data Date Time Temp Pulse Resp B/P Pulse Ox O2 Delivery O2 Flow Rate FiO2 12/12/16 12:00 97.0 97 16 125/70 95 12/12/16 08:00 97.5 80 16 134/84 95 12/12/16 04:00 97.2 91 17 135/72 96 12/11/16 23:00 97.7 90 16 146/88 98 12/11/16 20:00 97.8 85 16 154/80 100 12/11/16 16:00 98.2 86 18 141/88 100 12/12/16 12/12/16 12/12/16 07:00 15:00 23:00 Intake Total 1258 ml 960 ml Balance 1258 ml 960 ml Result Diagram: 12/11/1615 12/11/1615 Administered Medications Medications (Trade) Dose Ordered Sig/Génesis Route PRN Reason Start Time Stop Time Status Last Admin Dose Admin Sodium Chloride (NS Flush) DAILY IVF 12/08/16 09:00 12/08/16 09:00 Metformin HCl (Glucophage) 850 mg DAILY PO 12/09/16 09:00 12/12/16 10:49 Sertraline HCl (Zoloft) 50 mg DAILY PO 12/09/16 09:00 12/12/16 10:49 Docusate Sodium (Colace) 100 mg BID PO 12/08/16 21:00 12/12/16 10:49 Diazepam (Valium) 10 mg Q12H PRN PO anxiety 12/08/16 10:15 12/11/16 21:54 Oxycodone HCl (Roxicodone) 5 mg Q4H PRN PO PAIN SCALE 1 TO 10 12/08/16 10:15 12/11/16 21:55 Dexamethasone Sodium Phosphate (Decadron Opth 0.1% Soln) 2 drop QID EACH EYE 12/08/16 13:00 12/15/16 09:01 12/12/16 10:51 Ondansetron HCl 4 mg 4 mg Q6H PRN IV PUSH NAUSEA 12/08/16 18:00 12/10/16 18:52 Sodium Chloride 1,000 ml @ 125 mls/hr Q8H IV 12/08/16 23:45 12/12/16 01:10 Cytarabine/Sodium Chloride (Ana Paula C Inj/NS 250 ml Inj) 250 ml @ 83.333 mls/ hr Q12H IV 12/12/16 03:00 12/12/16 17:59 12/12/16 03:09 Objective Remarks GENERAL: Middle aged male, sitting up in bed in nad. SKIN: Warm and dry. fading blotchy erythematous rash on face and trunk HEAD: Normocephalic. EYES: No injection or drainage. NECK: Supple, trachea midline. CARDIOVASCULAR: Regular rate and rhythm RESPIRATORY: Breath sounds equal bilaterally. No accessory muscle use. GASTROINTESTINAL: Abdomen soft, non-tender, nondistended. EXTREMITIES: No cyanosis NEUROLOGICAL: No obvious focal deficit. Awake, alert, and oriented x3. Assessment/Plan Problem List: (1) AML (acute myeloid leukemia) Status: Acute Plan: 12/12: discharge today. follow up Thursday for CBC and Thursday for appointment next week. 12/11: Tolerated chemo OK yesterday except for some nausea. CBC OK today. 12/10: Chemo with cytarabine today. Pt states he feels quite well. Hgb 7.6 today. Will transfuse for less than 7.5. Labs in am. 12/09: off day. no events. 12/08: admission Dose 1A and 1B HiDaC --admitted for consolidation chemotherapy with high dose Ana Paula-C (2) Type 2 diabetes mellitus Status: Acute Plan: --on Metformin 850mg PO daily --on Novolog SSI low (3) Hypertension Status: Acute Plan: -on Atenolol 100mg PO daily Assessment 46y/o male admitted for high-dose Ana Paula-C consolidation chemotherapy for relapsed acute myeloid leukemia. h/o Hemochromatosis. ADHD. Hypercholesterolemia. anxiety disorder. Attending Statement Patient is complaining of new rash Still has some nausea.No Vomiting Complaining of fatigue Patient will compete chemotherapy today discharge to home today Follow up Next week at the office CBC on Thursday Problem Qualifiers (1) Type 2 diabetes mellitus: Qualified Code: E11.9 - Type 2 diabetes mellitus without complication, without long-term current use of insulin Janet Holm Dec 12, 2016 14:00 Alexandra Olea MD Dec 13, 2016 06:47
[2016-12-12 14:07] LABS: AUTOMATED NEUTROPHIL # 3.3 TH/MM3 (1.8-7.7); BASOPHIL % 0.6 % (0.0-2.0); HEMATOCRIT 22.9 % (39.0-51.0); LYMPH % 0.6 % (9.0-44.0); MEAN CELL VOLUME 82.4 FL (80.0-100.0); MEAN CORPUSCULAR HEMOGLOBIN 27.4 PG (27.0-34.0); MEAN CORPUSCULAR HGB CONC 33.2 % (32.0-36.0); MONO % 0.6 % (0.0-8.0); NEUT % 98.2 % (16.0-70.0); PLATELET COUNT 55 TH/MM3 (150-450); RED BLOOD COUNT 2.78 MIL/MM3 (4.50-5.90); RED CELL DISTRIBUTION WIDTH 16.4 % (11.6-17.2); WHITE BLOOD COUNT 3.3 TH/MM3 (4.0-11.0)
[2016-12-12 14:10] LABS: HEMO FLAGS AUTO DIFF
[2016-12-12 14:35] LABS: ALKALINE PHOSPHATASE 102 U/L (45-117); ALT (GPT) 57 U/L (12-78); ANION GAP 10 MEQ/L (5-15); AST (GOT) 23 U/L (15-37); BICARBONATE 26.7 MEQ/L (21.0-32.0); BLOOD UREA NITROGEN 16 MG/DL (7-18); CHLORIDE 100 MEQ/L (98-107); GLOMERULAR FILTRATION RATE 117 ML/MIN (>89); SODIUM (NA) 137 MEQ/L (136-145); TOTAL BILIRUBIN ADULT 0.5 MG/DL (0.2-1.0)
[2016-12-12 14:43] LABS: SCAN/DIFF AUTO DIFF CONFIRMED
[2016-12-12] MEDS ORDERED: NOVOLOGP2 SQ (14:43)
[2016-12-12 16:00] VITALS: BP 154/85; PULSE 95; RESP 20; TEMP 98.2; O2SAT 98
[2016-12-12] MEDS: ONDANSETRON HCL 4 MG/2 ML VIAL IV PUSH PRN (18:42)
[2016-12-12] MEDS ORDERED: ATENOLOL 100 MG TAB PO SCH (21:00)
== END 2016-12-12 19:18 | disposition home or self-care (01) | DRG 839 ==
LOC: HOCB 12-08 07:59
PROVIDERS: ADMIT Internal Medicine Hematology & Oncology; ATTEND Internal Medicine Hematology & Oncology
DX: Z51.11 Encounter for antineoplastic chemotherapy (principal); C92.02 Acute myeloblastic leukemia, in relapse; M53.3 Sacrococcygeal disorders, not elsewhere classified; F90.9 Attention-deficit hyperactivity disorder, unspecified type; E78.00 Pure hypercholesterolemia, unspecified; E83.119 Hemochromatosis, unspecified; F41.9 Anxiety disorder, unspecified; R21 Rash and other nonspecific skin eruption; R11.0 Nausea; E11.9 Type 2 diabetes mellitus without complications; I10 Essential (primary) hypertension
CPT/HCPCS: 72197; 80048; 80053; 82948; 85007; 85025; 85027; A9579; J0780; J1100; J1626; J1815; J2405; J7030; J7050; J9100

== ENCOUNTER 2016-12-25 09:27 | Inpatient (IN) | payer BC ==
[2016-12-25] VITALS (8 sets, daily range): BP systolic 132–146; BP diastolic 78–91; PULSE 101–107; RESP 16–20; TEMP 98.3–100.7; O2SAT 96–100
[~2016-12-25] VITALS: Ht 180.3 cm; Wt 112.2 kg
[~2016-12-25 09:27] MED LIST changes: -AMLO10TA2 PO; -LISI10TA3 PO; -MULT-135 PO; +NOVOLOGP2 SQ; +POTA-163 PO
[2016-12-25] MEDS ORDERED: ONDANSETRON HCL 4 MG/2 ML VIAL IV PUSH PRN (10:45)
[2016-12-25] MEDS ORDERED: PROCHLORPERAZINE INJ 10 MG/2 ML VIAL IV PRN (10:45)
[2016-12-25] MEDS ORDERED: Vancomycin Consult Pharmacy 1 EA OTHER SCH (11:00)
[2016-12-25] MEDS ORDERED: OXYC1CAP PO (11:03)
[2016-12-25] MEDS ORDERED: CIPR500T2 PO (11:03)
--- NOTE | 2016-12-25 11:38 | RADRPT ---
EXAM DATE/TIME: 12/25/2016 11:30 [facility] COMPARISON: CHEST SINGLE AP, November 03, 2016, 18:12. SACRUM, November 12, 2016, 20:10. INDICATIONS : Fever, shortness of breath. MEDICAL HISTORY : Hypertension. Diabetes mellitus type II. Leukemia. SURGICAL HISTORY : PICC Line. ENCOUNTER: Initial ACUITY: 1 day PAIN SCORE: 0/10 LOCATION: Bilateral chest FINDINGS: The PICC is in excellent position. The heart is normal in size. The lungs are clear. The visualized b gera structures are grossly intact. CONCLUSION: PICC in good position. The lungs are clear. The exam is stable compared to previous dated 11/03/16. Avi Ceron MD on December 25, 2016 at 11:35 Board Certified Radiologist. This report was verified electronically.
[2016-12-25] MEDS: CEFEPIME INJ 2,000 MG in SODIUM CHLORIDE 0.9% INJ 100 ML IV SCH ×2 (12:53→19:00)
[2016-12-25] MEDS ORDERED: VANCOMYCIN INJ 2,000 MG in SODIUM CHLORID 0.9% 500 ML INJ 500 ML IV ONE (13:00)
[2016-12-25 15:11] LABS: EOSINOPHIL % 22.3 % (0.0-4.0); LYMPH % 49.2 % (9.0-44.0); MEAN CELL VOLUME 76.9 FL (80.0-100.0); MEAN CORPUSCULAR HGB CONC 35.1 % (32.0-36.0); MONO % 19.6 % (0.0-8.0); NEUT % 8.9 % (16.0-70.0); RED BLOOD COUNT 2.73 MIL/MM3 (4.50-5.90); RED CELL DISTRIBUTION WIDTH 14.3 % (11.6-17.2); WHITE BLOOD COUNT 0.1 TH/MM3 (4.0-11.0)
[2016-12-25 15:14] LABS: HEMO FLAGS AUTO DIFF
[2016-12-25 15:15] LABS: PLATELET COUNT 9 TH/MM3 (150-450)
[2016-12-25 15:20] LABS: BICARBONATE 27.7 MEQ/L (21.0-32.0); POTASSIUM 3.6 MEQ/L (3.5-5.1)
[2016-12-25] MEDS ORDERED: ACETAMINOPHEN 325 MG TAB PO PRN ×2 (16:15→16:30)
[2016-12-25] MEDS ORDERED: SODIUM CHLOR 0.9% 250 ML INJ 250 ML IV ONE ×2 (16:15→16:30)
[2016-12-25] MEDS: ACETAMINOPHEN 325 MG TAB PO PRN ×2 (16:17→21:31)
[2016-12-25 16:59] LABS: EOSINOPHILS 10 % (0-4); POLYS (SEG NEUTROPHILS) 20 % (16-70); WBC DIFF SAMPLE 10
[2016-12-25 17:00] LABS: PLATELET ESTIMATE SMEAR RARE (NORMAL); PLATELET MORPHOLOGY NORMAL (NORMAL); SCAN/DIFF FINAL DIFF MANUAL
[2016-12-25] MEDS ORDERED: metFORMIN HCL 850 MG TAB PO SCH (18:00)
[2016-12-25 18:47] LABS: BACTERIA, URINE RARE /hpf; BLOOD, URINE NEG (NEG); GLUCOSE,URINE NEG (NEG); KETONE, URINE NEG (NEG); NITRITE,URINE NEG (NEG); URINE COLOR LIGHT-YELLOW (YELLW/STRAW)
[2016-12-25] MEDS: ATENOLOL 100 MG TAB PO SCH (20:26)
[2016-12-25] MEDS: metFORMIN HCL 850 MG TAB PO SCH (20:26)
[2016-12-25] MEDS: DIAZEPAM 10 MG TAB PO SCH (20:27)
[2016-12-25 21:09] LABS: MEAN CORPUSCULAR HGB CONC 36.6 % (32.0-36.0)
[2016-12-26] VITALS (10 sets, daily range): BP systolic 108–156; BP diastolic 65–100; PULSE 89–112; RESP 16–24; TEMP 97.6–101.2; O2SAT 94–97
[2016-12-26] MEDS: VANCOMYCIN INJ 2,000 MG in SODIUM CHLORID 0.9% 500 ML INJ 500 ML IV SCH ×2 (01:41→14:35)
[2016-12-26] MEDS: CEFEPIME INJ 2,000 MG in SODIUM CHLORIDE 0.9% INJ 100 ML IV SCH ×3 (06:21→19:56)
[2016-12-26 06:56] LABS: MEAN CELL VOLUME 77.4 FL (80.0-100.0); MEAN CORPUSCULAR HEMOGLOBIN 28.3 PG (27.0-34.0); RED BLOOD COUNT 2.54 MIL/MM3 (4.50-5.90); RED CELL DISTRIBUTION WIDTH 14.4 % (11.6-17.2); WHITE BLOOD COUNT 0.1 TH/MM3 (4.0-11.0)
[2016-12-26 07:05] LABS: HEMO FLAGS AUTO DIFF
[2016-12-26 07:06] LABS: HEMATOCRIT 19.7 % (39.0-51.0); PLATELET COUNT 16 TH/MM3 (150-450)
--- NOTE | 2016-12-26 07:40 | MH ---
cc: JOSEF OLEA M.D. DATE OF ADMISSION 12/25/2016 REASON FOR ADMISSION Neutropenic fever in a patient who had high-dose consolidation chemotherapy for a relapsed acute myeloid leukemia. HISTORY OF PRESENT ILLNESS Edgar is a pleasant 46-year-old male. He was diagnosed with acute myeloid leukemia last year. He had induction chemotherapy and went into remission. He had four cycles of high-dose Ana Paula-C consolidation chemotherapy. The patient was in remission up until recently and was found to have his first relapse. He had chemotherapy CLANG-M. He be require two courses and he went into remission. He underwent high-dose Ana Paula-C consolidation chemotherapy a few weeks ago. I saw him yesterday in the office. The patient was neutropenic. His platelet count was low and a platelet transfusion was given. He was advised if he has any fever then he needs to call our office for further instructions. This morning when the patient woke up, he had a temperature of 100.5. He has severe neutropenia. The patient was directly admitted to the hospital for IV antibiotic and neutropenic fever. The patient is overall feeling better. He had low grade fever last night. His appetite is okay. He denies any nausea, vomiting, diarrhea or constipation. He is complaining of dizziness. PAST MEDICAL HISTORY 1. Acute myeloid leukemia. 2. Hemochromatosis. 3. ADHD. 4. Hypercholesterolemia. 5. Anxiety disorder. PAST SURGICAL HISTORY 1. [id number] placement which was removed due to the infection. 2. PICC line. 3. Tonsillectomy. 4. Undescended testis. 5. Colonoscopy. 6. Cardiac catheterization. 7. Anal sphincterotomy. ALLERGIES None. MEDICATIONS Please see EMR. FAMILY HISTORY Father from [place]. Mother from metastatic lung cancer. The patient has one brother who and another brother who is alive and well. The patient has six sisters, five , none from cancer. The patient has two daughters; both are alive and well. SOCIAL HISTORY The patient is , lives with his . He does not smoke cigarettes and does not drink alcohol. PHYSICAL EXAM VITAL SIGNS: Temperature 98.3, heart rate is 101, blood pressure 142/91. HEENT: PERRLA, EOMI and anicteric. No oral lesions noted. NECK: No lymphadenopathy noted. LUNGS: Clear. No wheezing, rhonchi or rales. HEART: Tachycardic with no murmur. ABDOMEN: Soft and nontender. No hepatosplenomegaly. EXTREMITIES: No pedal edema. NEUROLOGIC: Awake, alert, and oriented times three. SKIN: No significant lesions noted. ASSESSMENT 1. Neutropenic fever in a patient who was on consolidation chemotherapy. 2. Severe myelosuppression from the chemotherapy. 3. Acute myeloid leukemia with first relapse, currently it looks like he is still in remission. PLAN The patient has been admitted to the hospital. We will do a fever workup with blood cultures, urine culture and chest x-ray. We will start him on vancomycin and cefapime both IV's. We will continue his regular medications. Give him platelets and PRBC today. Further recommendations will be based on his hospital stay. Thank you for asking my opinion. Katlin Olea MD /JUDY /12:45 AM /7:38 AM [id number]
[2016-12-26] MEDS ORDERED: GLUCAGON 1 MG/ML VIAL OTHER PRN (08:15)
[2016-12-26] MEDS ORDERED: DEXTROSE 50% IN WATER 50 ML VIAL(D50) IV PRN (08:15)
[2016-12-26] MEDS ORDERED: diphenhydrAMINE HCL 25 MG CAP PO PRN (09:00)
[2016-12-26] MEDS ORDERED: SODIUM CHLOR 0.9% 250 ML INJ 250 ML IV ONE (09:00)
[2016-12-26] MEDS ORDERED: ACETAMINOPHEN 325 MG TAB PO PRN (09:00)
[2016-12-26 09:07] LABS: WBC DIFF SAMPLE 10
[2016-12-26 09:08] LABS: PLATELET ESTIMATE SMEAR LOW (NORMAL); PLATELET MORPHOLOGY NORMAL (NORMAL)
[2016-12-26 09:09] LABS: SCAN/DIFF FINAL DIFF MANUAL
[2016-12-26] MEDS: metFORMIN HCL 850 MG TAB PO SCH ×2 (09:13→19:57)
[2016-12-26] MEDS: SERTRALINE HCL 50 MG TAB PO SCH (09:14)
--- NOTE | 2016-12-26 10:40 | PD.ONC.PN ---
Subjective Subjective Remarks Tmax 100.3 overnight. Having body aches all over, mostly in legs and jaw. +frontal headache, improved with tylenol. +RN/congestion, especially in the morning, but no cough. Objective Data Date Time Temp Pulse Resp B/P Pulse Ox O2 Delivery O2 Flow Rate FiO2 12/26/16 10:26 99.4 89 22 137/80 12/26/16 10:07 100.3 111 24 139/85 94 12/26/16 08:00 99.6 112 16 142/76 97 12/26/16 06:19 100.3 101 20 146/88 96 12/26/16 01:39 100.2 107 20 108/65 96 12/25/16 23:06 100.0 107 20 134/80 98 12/25/16 22:36 100.4 12/25/16 22:28 99.2 12/25/16 22:18 20 12/25/16 22:18 20 12/25/16 20:32 99.1 101 19 139/87 100 12/25/16 20:00 98.3 101 18 142/91 100 12/25/16 16:18 99.7 103 16 132/78 99 12/25/16 12:48 99.2 103 16 146/83 96 Result Diagram: 12/26/16 0618 12/25/16 1446 Laboratory Results Laboratory Tests Test 12/25/16 12/25/16 12/25/16 12/26/16 14:46 18:10 18:26 06:18 White Blood Count 0.1 TH/MM3 0.1 TH/MM3 Red Blood Count 2.73 MIL/MM3 2.54 MIL/MM3 Hemoglobin 7.4 GM/DL 7.2 GM/DL Hematocrit 21.0 % 19.7 % Mean Corpuscular Volume 76.9 FL 77.4 FL Mean Corpuscular Hemoglobin 27.0 PG 28.3 PG Mean Corpuscular Hemoglobin 35.1 % 36.6 % Concent Red Cell Distribution Width 14.3 % 14.4 % Platelet Count 9 TH/MM3 16 TH/MM3 Mean Platelet Volume 7.7 FL 7.9 FL Neutrophils (%) (Auto) 8.9 % % Lymphocytes (%) (Auto) 49.2 % % Monocytes (%) (Auto) 19.6 % % Eosinophils (%) (Auto) 22.3 % % Basophils (%) (Auto) 0.0 % % Neutrophils # (Auto) 0.0 TH/MM3 TH/MM3 Lymphocytes # (Auto) 0.0 TH/MM3 TH/MM3 Monocytes # (Auto) 0.0 TH/MM3 TH/MM3 Eosinophils # (Auto) 0.0 TH/MM3 TH/MM3 Basophils # (Auto) 0.0 TH/MM3 TH/MM3 CBC Comment AUTO DIFF AUTO DIFF Differential Total Cells 10 10 Counted Neutrophils % (Manual) 20 % Lymphocytes % 60 % 70 % Monocytes % 10 % 30 % Eosinophils % 10 % Neutrophils # (Manual) 0.0 TH/MM3 Differential Comment FINAL DIFF FINAL DIFF MANUAL MANUAL Platelet Estimate RARE LOW Platelet Morphology Comment NORMAL NORMAL Sodium Level 139 MEQ/L Potassium Level 3.6 MEQ/L Chloride Level 103 MEQ/L Carbon Dioxide Level 27.7 MEQ/L Anion Gap 8 MEQ/L Blood Urea Nitrogen 10 MG/DL Creatinine 0.57 MG/DL Estimat Glomerular Filtration 153 ML/MIN Rate Random Glucose 113 MG/DL Calcium Level 8.7 MG/DL Blood Type O POSITIVE Antibody Screen NEGATIVE Crossmatch Irradiated/Leukocyte-Reduced RBC Blood Bank Comment Urine Color LIGHT-YELLOW Urine Turbidity CLEAR Urine pH 7.0 Urine Specific [place] 1.010 Urine Protein NEG mg/dL Urine Glucose (UA) NEG mg/dL Urine Ketones NEG mg/dL Urine Occult Blood NEG Urine Nitrite NEG Urine Bilirubin NEG Urine Urobilinogen LESS THAN 2.0 MG/DL Urine Leukocyte Esterase NEG Urine RBC LESS THAN 1 /hpf Urine WBC LESS THAN 1 /hpf Urine Bacteria RARE /hpf Test 12/26/16 08:01 Blood Type O POSITIVE Crossmatch Irradiated/Leukocyte-Reduced RBC Blood Bank Comment Culture Results Microbiology Date/Time Procedure Status Source Growth 12/25/16 12:56 Aerobic Blood Culture Received Blood Other Pending 12/25/16 12:56 Anaerobic Blood Culture Received Blood Other Pending 12/25/16 13:00 Aerobic Blood Culture Received Blood Other Pending 12/25/16 13:00 Anaerobic Blood Culture Received Blood Other Pending 12/25/16 18:26 Urine Culture Received Urine Clean Catch Pending Administered Medications Medications (Trade) Dose Ordered Sig/Génesis Route PRN Reason Start Time Stop Time Status Last Admin Dose Admin Acetaminophen (Tylenol) 650 mg Q4H PRN PO PAIN SCALE 0-3 OR TEMP> 100.5F 12/25/16 10:45 12/25/16 21:31 Atenolol (Tenormin) 100 mg HS PO 12/25/16 21:00 12/25/16 20:26 Sertraline HCl (Zoloft) 50 mg DAILY PO 12/26/16 09:00 12/26/16 09:14 Diazepam (Valium) 10 mg HS PO 12/25/16 21:00 12/25/16 20:27 Oxycodone HCl 5 mg 5 mg Q4H PRN PO PAIN SCALE 4 TO 10 12/25/16 16:00 12/25/16 20:31 Vancomycin HCl/ Sodium Chloride (Vancomycin Inj/ NS 500 ml Inj) 520 ml @ 250 mls/hr Q12H IV 12/26/16 01:00 12/26/16 01:41 Metformin HCl 850 mg 850 mg BID PO 12/25/16 21:00 12/26/16 09:13 Cefepime HCl/ Sodium Chloride (Maxipime Inj/NS Inj) 100 ml @ 200 mls/hr Q8H IV 12/26/16 05:00 12/26/16 06:21 Acetaminophen (Tylenol) 650 mg Q4H PRN PO SEE LABEL COMMENTS 12/26/16 09:00 12/26/16 13:01 12/26/16 09:13 Objective Remarks GENERAL: Middle aged male, upright in bed, appears acutely ill but non-toxic SKIN: Warm and dry. HEAD: Normocephalic. no frontal or maxillary sinus tenderness. ENT: pharynx mildly injected. no swelling in mouth. tonsils atrophic. bilateral TM without bulging. EYES: No injection or drainage. NECK: Supple, trachea midline. CARDIOVASCULAR: Regular rate and rhythm RESPIRATORY: Breath sounds equal bilaterally. No accessory muscle use. GASTROINTESTINAL: Abdomen soft, non-tender, nondistended. EXTREMITIES: No cyanosis MUSCULOSKELETAL: Adequate muscle tone. NEUROLOGICAL: No obvious focal deficit. Awake, alert, and oriented x3. Assessment/Plan Problem List: (1) Fever and neutropenia Status: Acute Plan: --BC pending --on Vanco and Cefepime --CXR clear --U/a clear (2) AML (acute myeloid leukemia) Status: Acute Plan: --currently in remission --just completed C1 consolidation therapy (3) Depression Status: Acute Plan: --on Zoloft --takes valium for anxiety (4) Anemia Status: Acute Plan: --transfuse for hgb<7.5mg/dL (5) Hypertension Status: Acute Plan: --on Atenolol (6) Thrombocytopenia Status: Acute Plan: --transfuse for platelet count less than 15K (7) Type 2 diabetes mellitus Status: Acute Plan: --on Metformin 850mg PO BID --on SSI Novolog low scale Assessment 46y/o male with relapsed AML, admitted for neutropenic fever. h/o diabetes, hypertension, depression Attending Statement has low grade fever. Does not feel sick. PRBC today. continue antibiotics, willl follow. The exam, history, and the medical decision-making described in the above note were completed with the assistance of the mid-level provider. I reviewed and agree with the findings presented. I attest that I had a [id number] encounter with the patient on the same day, and personally performed and documented my assessment and findings in the medical record. Janet Holm Dec 26, 2016 10:40 Alexandra Olea MD Dec 26, 2016 13:25
[2016-12-26] MEDS: SODIUM CHLOR 0.9% 1000 ML INJ 1,000 ML IV SCH ×2 (12:44→23:10)
[2016-12-26] MEDS: INSULIN ASPART SUPPLEMENTAL SCALE SQ SCH ×2 (16:00→21:00)
[2016-12-26] MEDS: SUCRALFATE 1 GM/10 ML CUP PO SCH ×2 (16:23→19:57)
[2016-12-26] MEDS: ACETAMINOPHEN 325 MG TAB PO PRN ×2 (16:24→22:55)
[2016-12-26] MEDS: ATENOLOL 100 MG TAB PO SCH (19:56)
[2016-12-26] MEDS: DIAZEPAM 5 MG TAB PO PRN (19:56)
[2016-12-26] MEDS: DIAZEPAM 10 MG TAB PO SCH ×2 (21:00→22:54)
[2016-12-27] VITALS (7 sets, daily range): BP systolic 130–151; BP diastolic 72–93; PULSE 88–120; RESP 16–18; TEMP 96.3–99.4; O2SAT 95–99
[2016-12-27] MEDS: VANCOMYCIN INJ 2,000 MG in SODIUM CHLORID 0.9% 500 ML INJ 500 ML IV SCH ×2 (00:44→17:33)
[2016-12-27] MEDS ORDERED: PHARMACY ORDERED LAB ONE (00:45)
[2016-12-27] MEDS: CEFEPIME INJ 2,000 MG in SODIUM CHLORIDE 0.9% INJ 100 ML IV SCH ×3 (06:10→21:19)
[2016-12-27 06:50] LABS: ALT (GPT) 20 U/L (12-78); ANION GAP 7 MEQ/L (5-15); AST (GOT) 8 U/L (15-37); BICARBONATE 29.5 MEQ/L (21.0-32.0); BLOOD UREA NITROGEN 7 MG/DL (7-18); CHLORIDE 102 MEQ/L (98-107); GLOMERULAR FILTRATION RATE 173 ML/MIN (>89); POTASSIUM 3.1 MEQ/L (3.5-5.1); SODIUM (NA) 138 MEQ/L (136-145)
[2016-12-27 06:52] LABS: ALKALINE PHOSPHATASE 93 U/L (45-117); TOTAL BILIRUBIN ADULT 0.6 MG/DL (0.2-1.0)
[2016-12-27] MEDS: SUCRALFATE 1 GM/10 ML CUP PO SCH ×4 (07:00→21:00)
[2016-12-27] MEDS: INSULIN ASPART SUPPLEMENTAL SCALE SQ SCH ×4 (07:00→21:00)
[2016-12-27 07:13] LABS: HEMATOCRIT 21.5 % (39.0-51.0); MEAN CORPUSCULAR HEMOGLOBIN 27.6 PG (27.0-34.0); MEAN CORPUSCULAR HGB CONC 35.9 % (32.0-36.0); RED BLOOD COUNT 2.79 MIL/MM3 (4.50-5.90); RED CELL DISTRIBUTION WIDTH 13.5 % (11.6-17.2); WHITE BLOOD COUNT 0.1 TH/MM3 (4.0-11.0)
[2016-12-27 07:20] LABS: HEMO FLAGS AUTO DIFF
[2016-12-27 07:23] LABS: PLATELET COUNT 13 TH/MM3 (150-450)
[2016-12-27] MEDS ORDERED: ACETAMINOPHEN 325 MG TAB PO PRN (08:00)
[2016-12-27] MEDS ORDERED: SODIUM CHLOR 0.9% 250 ML INJ 250 ML IV ONE (08:00)
[2016-12-27] MEDS ORDERED: diphenhydrAMINE HCL 25 MG CAP PO PRN (08:00)
[2016-12-27] MEDS: metFORMIN HCL 850 MG TAB PO SCH ×2 (09:00→21:21)
[2016-12-27] MEDS ORDERED: POTASSIUM CHLORIDE INJ 30 MEQ in SODIUM CHLORIDE 0.9% INJ 100 ML IV SCH (09:00)
[2016-12-27] MEDS: SERTRALINE HCL 50 MG TAB PO SCH (09:00)
[2016-12-27 09:17] LABS: PLATELET ESTIMATE SMEAR RARE (NORMAL); PLATELET MORPHOLOGY NORMAL (NORMAL); SCAN/DIFF FINAL DIFF MANUAL; WBC DIFF SAMPLE 20
--- NOTE | 2016-12-27 09:34 | PD.ONC.PN ---
Subjective Subjective Remarks Tmax 101.2 overnight. Concerned that he won't get to [place] by Thursday. Still has frontal headache. No associated neurologic symptoms. Minimal cough. Objective Data Date Time Temp Pulse Resp B/P Pulse Ox O2 Delivery O2 Flow Rate FiO2 12/27/16 04:00 99.4 89 17 130/72 97 12/27/16 01:57 20 12/27/16 00:00 104 17 145/93 99 12/26/16 23:00 101.2 12/26/16 22:32 19 12/26/16 20:00 99.6 102 18 147/86 97 12/26/16 16:00 100.9 108 16 153/100 96 156/97 12/26/16 12:57 98.8 90 20 135/79 96 12/26/16 12:00 97.6 100 16 135/89 97 12/26/16 10:26 99.4 89 22 137/80 12/26/16 10:07 100.3 111 24 139/85 94 12/27/16 12/27/16 12/27/16 07:00 15:00 23:00 Intake Total 240 ml Balance 240 ml Result Diagram: 12/27/16 0614 12/27/16 0614 Laboratory Results Laboratory Tests Test 12/26/16 12/27/16 23:28 06:14 Vancomycin Level Trough 15.4 MCG/ML White Blood Count 0.1 TH/MM3 Red Blood Count 2.79 MIL/MM3 Hemoglobin 7.7 GM/DL Hematocrit 21.5 % Mean Corpuscular Volume 77.0 FL Mean Corpuscular Hemoglobin 27.6 PG Mean Corpuscular Hemoglobin 35.9 % Concent Red Cell Distribution Width 13.5 % Platelet Count 13 TH/MM3 Mean Platelet Volume 8.5 FL Neutrophils (%) (Auto) % Lymphocytes (%) (Auto) % Monocytes (%) (Auto) % Eosinophils (%) (Auto) % Basophils (%) (Auto) % Neutrophils # (Auto) TH/MM3 Lymphocytes # (Auto) TH/MM3 Monocytes # (Auto) TH/MM3 Eosinophils # (Auto) TH/MM3 Basophils # (Auto) TH/MM3 CBC Comment AUTO DIFF Differential Total Cells 20 Counted Lymphocytes % 75 % Monocytes % 25 % Differential Comment FINAL DIFF MANUAL Platelet Estimate RARE Platelet Morphology Comment NORMAL Sodium Level 138 MEQ/L Potassium Level 3.1 MEQ/L Chloride Level 102 MEQ/L Carbon Dioxide Level 29.5 MEQ/L Anion Gap 7 MEQ/L Blood Urea Nitrogen 7 MG/DL Creatinine 0.51 MG/DL Estimat Glomerular Filtration 173 ML/MIN Rate Random Glucose 119 MG/DL Calcium Level 8.7 MG/DL Total Bilirubin 0.6 MG/DL Aspartate Amino Transf 8 U/L (AST/SGOT) Alanine Aminotransferase 20 U/L (ALT/SGPT) Alkaline Phosphatase 93 U/L Total Protein 5.9 GM/DL Albumin 2.6 GM/DL Culture Results Microbiology Date/Time Procedure Status Source Growth 12/25/16 12:56 Aerobic Blood Culture - Preliminary Resulted Blood Other NO GROWTH IN 1 DAY 12/25/16 12:56 Anaerobic Blood Culture - Preliminary Resulted Blood Other NO GROWTH IN 1 DAY 12/25/16 13:00 Aerobic Blood Culture - Preliminary Resulted Blood Other NO GROWTH IN 1 DAY 12/25/16 13:00 Anaerobic Blood Culture - Preliminary Resulted Blood Other NO GROWTH IN 1 DAY 12/25/16 18:26 Urine Culture - Final Complete Urine Clean Catch NO GROWTH IN 48 HOURS. 12/26/16 11:50 Influenza Types A,B Antigen (MALINI) - Final Complete Nasal Aspirate NEGATIVE FOR FLU A AND B ANTIGEN.... 12/26/16 23:29 Aerobic Blood Culture Received Blood Line Pending 12/26/16 23:29 Anaerobic Blood Culture Received Blood Line Pending Administered Medications Medications (Trade) Dose Ordered Sig/Génesis Route PRN Reason Start Time Stop Time Status Last Admin Dose Admin Acetaminophen (Tylenol) 650 mg Q4H PRN PO PAIN SCALE 0-3 OR TEMP> 100.5F 12/25/16 10:45 12/26/16 22:55 Atenolol (Tenormin) 100 mg HS PO 12/25/16 21:00 12/26/16 19:56 Sertraline HCl (Zoloft) 50 mg DAILY PO 12/26/16 09:00 12/27/16 09:00 Diazepam (Valium) 10 mg HS PO 12/25/16 21:00 12/26/16 22:54 Oxycodone HCl 5 mg 5 mg Q4H PRN PO PAIN SCALE 4 TO 10 12/25/16 16:00 12/26/16 21:04 Vancomycin HCl/ Sodium Chloride (Vancomycin Inj/ NS 500 ml Inj) 520 ml @ 250 mls/hr Q12H IV 12/26/16 01:00 12/27/16 00:44 Metformin HCl 850 mg 850 mg BID PO 12/25/16 21:00 12/27/16 09:00 Cefepime HCl 2000 mg/Sodium Chloride 100 ml @ 200 mls/hr Q8H IV 12/26/16 05:00 12/27/16 06:10 Sodium Chloride (NS 1000 ml Inj) 1,000 ml @ 84 mls/hr [id number] IV 12/26/16 11:15 12/26/16 12:44 Sucralfate (Carafate Liq) 1 gm ACHS PO 12/26/16 16:00 12/26/16 16:23 Objective Remarks GENERAL: Middle aged male, upright in bed in nad. SKIN: Warm and dry. PICC line, right arm, site clean. HEAD: Normocephalic. EYES: No scleral icterus. No injection or drainage. NECK: Supple, trachea midline. CARDIOVASCULAR: Regular rate and rhythm RESPIRATORY: Breath sounds equal bilaterally. No accessory muscle use. GASTROINTESTINAL: Abdomen soft, non-tender, nondistended. EXTREMITIES: No cyanosis NEUROLOGICAL: No obvious focal deficit. Awake, alert, and oriented x3. Assessment/Plan Problem List: (1) Fever and neutropenia Status: Acute Plan: --BC no growth --on Vanco and Cefepime --consult infectious disease --CXR clear --U/a clear (2) AML (acute myeloid leukemia) Status: Acute Plan: --currently in remission --just completed C1 consolidation therapy (3) Depression Status: Acute Plan: --on Zoloft --takes valium for anxiety (4) Anemia Status: Acute Plan: --transfuse for hgb<7.5mg/dL (5) Hypertension Status: Acute Plan: --on Atenolol (6) Thrombocytopenia Status: Acute Plan: --transfuse for platelet count less than 15K (7) Type 2 diabetes mellitus Status: Acute Plan: --on Metformin 850mg PO BID --on SSI Novolog low scale Assessment 46y/o male with relapsed AML, admitted for neutropenic fever. h/o diabetes, hypertension, depression Plan 1. give 1unit pRBC, 1 unit platelets today 2. consult ID for persistent neutropenic fever 3. monitor blood cultures Attending Statement The exam, history, and the medical decision-making described in the above note were completed with the assistance of the mid-level provider. I reviewed and agree with the findings presented. I attest that I had a [id number] encounter with the patient on the same day, and personally performed and documented my assessment and findings in the medical record. Pt seen and examined. Discussed his neutropenic fever and current support. Anticipate fevers to continue until BM recovery. Pt plans BMT work up on Thursday, unfortunately it seems unlikely he can be DC'd safely on Thursday. Discussed w/ pt option to consult w/ BMT team to transfer him, however, his work up is out pt. Discussed ID support consulted. Continue Abx. Follow cultures. Janet Holm Dec 27, 2016 09:34 Kavitha Brown MD Dec 27, 2016 14:07
[2016-12-27] MEDS ORDERED: POTASSIUM CHLORIDE 20 MEQ CONTROLLED RELEASE TAB PO ONE (12:00)
[2016-12-27] MEDS: ACETAMINOPHEN 325 MG TAB PO PRN (14:42)
--- NOTE | 2016-12-27 15:41 | PD.CONS ---
History of Present Illness Service Infectious disease Consult Requested By Dr Brown Reason for Consult Evaluate patient with fever and neutropenia Primary Care Physician Forrest Phillips MD Diagnoses: History of Present Illness Patient seen and examined. Records reviewed. Patient is a 46-year-old male, with diagnosis of acute myeloid leukemia since last year, was given induction chemotherapy, and went into remission. Recently he was diagnosed to be in relapse, and he was started on chemotherapy again. He last chemotherapy was about a few weeks ago, and patient was seen in follow- up and was found to be neutropenic as expected. He has been following his temperature, and on the day of admission his temperature went up to 100.5. Patient was advised to go to the hospital for further management. Patient denies any significant respiratory complaint. He's had some nausea but no vomiting. He denies any abdominal pain or any diarrhea. Denies any urinary complaint. He denies any sores in his mouth or any swallowing difficulty or odynophagia. He has not noted any skin rash. Patient has a PICC line in his right upper extremity where he gets his chemotherapy. Infectious disease consultation has been requested to evaluate the patient Review of Systems Constitutional: COMPLAINS OF: Fever, Chills Eyes: DENIES: Eye pain Ears, nose, mouth, throat: DENIES: Nasal discharge, Oral lesions, Throat pain, Ear Pain, Sinus Pain, Toothache Respiratory: DENIES: Cough, Shortness of breath Cardiovascular: DENIES: Chest pain, Palpitations, Syncope Gastrointestinal: COMPLAINS OF: Nausea, DENIES: Abdominal pain, Diarrhea, Vomiting, Difficulty Swallowing Genitourinary: DENIES: Hematuria, Dysuria Musculoskeletal: DENIES: Joint pain, Joint Swelling, Back pain Integumentary: DENIES: Rash Neurologic: COMPLAINS OF: Headache, DENIES: Localized weakness Psychiatric: DENIES: Confusion, Hallucinations Past Family Social History Allergies: Coded Allergies: Vancomycin (Verified Adverse Reaction, Severe, Diarrhea, 10/29/16) Per pt and his record review he uneventfully took IV vancomycin in December 2015. In october 16-2016 he developped severe diarrhea during vancomycin use, no rash per his account. Past Medical History Acute myeloid leukemia. Hemochromatosis. ADHD. Hypercholesterolemia. Anxiety disorder. 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 Tonsillectomy. Undescended testis. Colonoscopy. Cardiac catheterization. Anal sphincterotomy. Active Ordered Medications Tylenol Tenormin Cefepime Valium Insulin Glucophage Zofran Oxycodone Compazine Zoloft Carafate Vancomycin Family History Father from [place]. Mother from metastatic lung cancer. The patient has one brother who and another brother who is alive and well. The patient has six sisters, five , none from cancer. The patient has two daughters; both are alive and well. Social History No smoking No alcohol abuse No illicit drug Physical Exam Vital Signs Vital Signs Date Time Temp Pulse Resp B/P Pulse Ox O2 Delivery O2 Flow Rate FiO2 12/27/16 14:31 96.5 12/27/16 13:00 99.2 94 16 135/80 96 12/27/16 09:00 99.1 120 18 151/93 95 12/27/16 04:00 99.4 89 17 130/72 97 12/27/16 01:57 20 12/27/16 00:00 104 17 145/93 99 12/26/16 23:00 101.2 12/26/16 22:32 19 12/26/16 20:00 99.6 102 18 147/86 97 12/26/16 16:00 100.9 108 16 153/100 96 156/97 Physical Exam GENERAL: Patient is a well-nourished, well-developed CM, awake and alert, not in respiratory distress. Has alopecia SKIN: Warm and dry. No generalized rash, no ecchymoses and no evidence of embolic lesions. HEAD: Atraumatic. Normocephalic. No temporal wasting, or tenderness. EYES: [place] conjunctiva. No petechia or hemorrhage. Pupils equal, round and reactive to light. Extraocular movements full and intact. No scleral icterus. No injection or drainage. EARS, NOSE AND THROAT: Nose without bleeding or purulent nasal discharge. No sinus tenderness. Mucous membranes pink and moist. No oral lesions noted. No exudate. No oral thrush. NECK: Trachea midline. Supple and not tender, no meningeal signs CARDIOVASCULAR: Regular rate and rhythm. No murmurs, rubs or gallops heard RESPIRATORY: Clear to auscultation. Breath sounds equal bilaterally. No rales , wheezing or rhonchi ABDOMEN: Soft, non-tender, nondistended. Bowel sounds present and normoactive. No guarding. No rebound. No organomegaly. EXTREMITIES: No clubbing, cyanosis, or edema. No joint effusion, has good ROM. No calf tenderness. Well perfused and warm. NEUROLOGICAL: Awake and alert. Cranial nerves grossly intact. Motor grossly within normal limits. PSYCHIATRIC: Normal affect, calm and cooperative. LINE: PICC RUE with no evidence of infection Laboratory Laboratory Tests Test 12/26/16 12/27/16 12/27/16 23:28 06:14 07:54 Vancomycin Level Trough 15.4 White Blood Count 0.1 Red Blood Count 2.79 Hemoglobin 7.7 Hematocrit 21.5 Mean Corpuscular Volume 77.0 Mean Corpuscular Hemoglobin 27.6 Mean Corpuscular Hemoglobin 35.9 Concent Red Cell Distribution Width 13.5 Platelet Count 13 Mean Platelet Volume 8.5 Neutrophils (%) (Auto) Lymphocytes (%) (Auto) Monocytes (%) (Auto) Eosinophils (%) (Auto) Basophils (%) (Auto) Neutrophils # (Auto) Lymphocytes # (Auto) Monocytes # (Auto) Eosinophils # (Auto) Basophils # (Auto) CBC Comment AUTO DIFF Differential Total Cells 20 Counted Lymphocytes % 75 Monocytes % 25 Differential Comment FINAL DIFF MANUAL Platelet Estimate RARE Platelet Morphology Comment NORMAL Sodium Level 138 Potassium Level 3.1 Chloride Level 102 Carbon Dioxide Level 29.5 Anion Gap 7 Blood Urea Nitrogen 7 Creatinine 0.51 Estimat Glomerular Filtration 173 Rate Random Glucose 119 Calcium Level 8.7 Total Bilirubin 0.6 Aspartate Amino Transf 8 (AST/SGOT) Alanine Aminotransferase 20 (ALT/SGPT) Alkaline Phosphatase 93 Total Protein 5.9 Albumin 2.6 Blood Type O POSITIVE Crossmatch Irradiated/Leukocyte-Reduced RBC Blood Bank Comment Date/Time Procedure Status Source Growth 12/27/16 10:16 Aerobic Blood Culture Received Blood Peripheral Pending 12/27/16 10:16 Anaerobic Blood Culture Received Blood Peripheral Pending 12/26/16 23:29 Aerobic Blood Culture - Preliminary Resulted Blood Line NO GROWTH IN 1 DAY 12/26/16 23:29 Anaerobic Blood Culture - Preliminary Resulted Blood Line NO GROWTH IN 1 DAY 12/26/16 11:50 Influenza Types A,B Antigen (MALINI) - Final Complete Nasal Aspirate NEGATIVE FOR FLU A AND B ANTIGEN.... 12/25/16 18:26 Urine Culture - Final Complete Urine Clean Catch NO GROWTH IN 48 HOURS. Result Diagram: 12/27/16 0614 12/27/16 0614 Imaging RADIOLOGY STUDIES/FILMS REVIEWED Last Impressions Chest X-Ray 12/25/16 0000 Signed Impressions: Service Date/Time: , December 25, 2016 11:30 - CONCLUSION: PICC in good position. The lungs are clear. The exam is stable compared to previous dated 11/03/16. Avi Ceron MD Assessment and Plan Assessment and Plan IMPRESSION Neutropenic fever, non-localizing Acute myeloid leukemia, in relapse, getting chemo Previous RX for fusobacterium and Clostyridium sepsis RECOMMENDATION Follow C/S and adjust Abx Continue cefepime and Vanco - empiric for fever and neutropenia If high temps continues will add Micafungin Follow temps Monitor progress I will follow along with you Thank you for this consultation Discussed Condition With Explained plan to the patient and Heather Bhatt MD Dec 27, 2016 15:41
[2016-12-27 21:08] LABS: MEAN CORPUSCULAR HGB CONC 36.2 % (32.0-36.0)
[2016-12-27] MEDS: SODIUM CHLOR 0.9% 1000 ML INJ 1,000 ML IV SCH (21:19)
[2016-12-27] MEDS: ATENOLOL 100 MG TAB PO SCH (21:20)
[2016-12-27] MEDS: DIAZEPAM 10 MG TAB PO SCH (21:20)
[2016-12-28] VITALS (7 sets, daily range): BP systolic 134–154; BP diastolic 86–89; PULSE 75–101; RESP 16–19; TEMP 98.2–100.2; O2SAT 95–99
[2016-12-28] MEDS: VANCOMYCIN INJ 2,000 MG in SODIUM CHLORID 0.9% 500 ML INJ 500 ML IV SCH ×2 (01:21→14:01)
[2016-12-28] MEDS: SODIUM CHLOR 0.9% 1000 ML INJ 1,000 ML IV SCH ×2 (01:23→21:07)
[2016-12-28] MEDS: CEFEPIME INJ 2,000 MG in SODIUM CHLORIDE 0.9% INJ 100 ML IV SCH ×3 (04:48→21:07)
[2016-12-28] MEDS: SUCRALFATE 1 GM/10 ML CUP PO SCH ×4 (04:48→19:46)
[2016-12-28] MEDS: INSULIN ASPART SUPPLEMENTAL SCALE SQ SCH ×4 (04:48→19:47)
[2016-12-28 06:59] LABS: HEMATOCRIT 22.6 % (39.0-51.0); MEAN CELL VOLUME 76.8 FL (80.0-100.0); MEAN CORPUSCULAR HEMOGLOBIN 27.8 PG (27.0-34.0); RED BLOOD COUNT 2.94 MIL/MM3 (4.50-5.90); RED CELL DISTRIBUTION WIDTH 14.1 % (11.6-17.2); WHITE BLOOD COUNT 0.2 TH/MM3 (4.0-11.0)
[2016-12-28 07:26] LABS: HEMO FLAGS AUTO DIFF
[2016-12-28 07:28] LABS: PLATELET COUNT 18 TH/MM3 (150-450)
[2016-12-28] MEDS: metFORMIN HCL 850 MG TAB PO SCH ×2 (09:13→21:08)
[2016-12-28] MEDS: SERTRALINE HCL 50 MG TAB PO SCH (09:13)
[2016-12-28 09:22] LABS: PLATELET ESTIMATE SMEAR RARE (NORMAL); PLATELET MORPHOLOGY NORMAL (NORMAL); SCAN/DIFF FINAL DIFF MANUAL; WBC DIFF SAMPLE 25
--- NOTE | 2016-12-28 09:50 | PD.ONC.PN ---
Subjective Subjective Remarks Afebrile overnight. Headache improved after blood transfusion. Feeling a bit better today. Still has pain in right jaw/mouth. Concerned that WBC has not recovered yet. Objective Data Date Time Temp Pulse Resp B/P Pulse Ox O2 Delivery O2 Flow Rate FiO2 12/28/16 08:00 98.3 75 16 145/89 96 12/28/16 04:00 98.2 93 18 134/86 95 12/28/16 01:00 100.2 12/28/16 00:00 99.6 94 19 148/89 97 12/27/16 20:00 98.9 95 18 144/86 96 12/27/16 17:35 96.3 88 18 131/86 97 12/27/16 14:31 96.5 12/27/16 13:00 99.2 94 16 135/80 96 12/28/16 12/28/16 12/28/16 07:00 15:00 23:00 Intake Total 480 ml 1671 ml Balance 480 ml 1671 ml Result Diagram: 12/28/16 0430 12/27/16 0614 Laboratory Results Laboratory Tests Test 12/28/16 04:30 White Blood Count 0.2 TH/MM3 Red Blood Count 2.94 MIL/MM3 Hemoglobin 8.2 GM/DL Hematocrit 22.6 % Mean Corpuscular Volume 76.8 FL Mean Corpuscular Hemoglobin 27.8 PG Mean Corpuscular Hemoglobin 36.2 % Concent Red Cell Distribution Width 14.1 % Platelet Count 18 TH/MM3 Mean Platelet Volume 8.9 FL Neutrophils (%) (Auto) % Lymphocytes (%) (Auto) % Monocytes (%) (Auto) % Eosinophils (%) (Auto) % Basophils (%) (Auto) % Neutrophils # (Auto) TH/MM3 Lymphocytes # (Auto) TH/MM3 Monocytes # (Auto) TH/MM3 Eosinophils # (Auto) TH/MM3 Basophils # (Auto) TH/MM3 CBC Comment AUTO DIFF Differential Total Cells 25 Counted Lymphocytes % 12 % Monocytes % 88 % Neutrophils # (Manual) 0.0 TH/MM3 Differential Comment FINAL DIFF MANUAL Platelet Estimate RARE Platelet Morphology Comment NORMAL Red Cell Morphology Comment NORMAL Culture Results Microbiology Date/Time Procedure Status Source Growth 12/25/16 12:56 Aerobic Blood Culture - Preliminary Resulted Blood Other NO GROWTH IN 2 DAYS 12/25/16 12:56 Anaerobic Blood Culture - Preliminary Resulted Blood Other NO GROWTH IN 2 DAYS 12/25/16 13:00 Aerobic Blood Culture - Preliminary Resulted Blood Other NO GROWTH IN 2 DAYS 12/25/16 13:00 Anaerobic Blood Culture - Preliminary Resulted Blood Other NO GROWTH IN 2 DAYS 12/25/16 18:26 Urine Culture - Final Complete Urine Clean Catch NO GROWTH IN 48 HOURS. 12/26/16 11:50 Influenza Types A,B Antigen (MALINI) - Final Complete Nasal Aspirate NEGATIVE FOR FLU A AND B ANTIGEN.... 12/26/16 23:29 Aerobic Blood Culture - Preliminary Resulted Blood Line NO GROWTH IN 1 DAY 12/26/16 23:29 Anaerobic Blood Culture - Preliminary Resulted Blood Line NO GROWTH IN 1 DAY 12/27/16 10:16 Aerobic Blood Culture Resulted Blood Peripheral Pending 12/27/16 10:16 Anaerobic Blood Culture - Final Resulted Blood Peripheral QNS - SEE AEROBE REPORT Administered Medications Medications (Trade) Dose Ordered Sig/Génesis Route PRN Reason Start Time Stop Time Status Last Admin Dose Admin Acetaminophen (Tylenol) 650 mg Q4H PRN PO PAIN SCALE 0-3 OR TEMP> 100.5F 12/25/16 10:45 12/27/16 14:42 Atenolol (Tenormin) 100 mg HS PO 12/25/16 21:00 12/27/16 21:20 Sertraline HCl (Zoloft) 50 mg DAILY PO 12/26/16 09:00 12/28/16 09:13 Diazepam (Valium) 10 mg HS PO 12/25/16 21:00 12/27/16 21:20 Oxycodone HCl 5 mg 5 mg Q4H PRN PO PAIN SCALE 4 TO 10 12/25/16 16:00 12/27/16 21:21 Vancomycin HCl/ Sodium Chloride (Vancomycin Inj/ NS 500 ml Inj) 520 ml @ 250 mls/hr Q12H IV 12/26/16 01:00 12/28/16 01:21 Metformin HCl 850 mg 850 mg BID PO 12/25/16 21:00 12/28/16 09:13 Cefepime HCl 2000 mg/Sodium Chloride 100 ml @ 200 mls/hr Q8H IV 12/26/16 05:00 12/28/16 04:48 Sodium Chloride (NS 1000 ml Inj) 1,000 ml @ 84 mls/hr [id number] IV 12/26/16 11:15 12/28/16 01:23 Sucralfate (Carafate Liq) 1 gm ACHS PO 12/26/16 16:00 12/26/16 16:23 Objective Remarks GENERAL: Middle aged male, sleeping in bed in [place]. SKIN: Warm and dry. PICC line, right arm, site clean. HEAD: Normocephalic. EYES: No scleral icterus. No injection or drainage. NECK: Supple, trachea midline. CARDIOVASCULAR: Regular rate and rhythm RESPIRATORY: Breath sounds equal bilaterally. No accessory muscle use. GASTROINTESTINAL: Abdomen soft, non-tender, nondistended. EXTREMITIES: No cyanosis NEUROLOGICAL: No obvious focal deficit. Awake, alert, and oriented x3. Assessment/Plan Problem List: (1) Fever and neutropenia Status: Acute Plan: --BC no growth --on Vanco and Cefepime -- infectious disease following --CXR clear --U/a clear (2) AML (acute myeloid leukemia) Status: Acute Plan: --currently in remission --just completed C1 consolidation therapy (3) Depression Status: Acute Plan: --on Zoloft --takes valium for anxiety (4) Anemia Status: Acute Plan: --transfuse for hgb<7.5mg/dL (5) Hypertension Status: Acute Plan: --on Atenolol (6) Thrombocytopenia Status: Acute Plan: --transfuse for platelet count less than 15K (7) Type 2 diabetes mellitus Status: Acute Plan: --on Metformin 850mg PO BID Assessment 46y/o male with relapsed AML, admitted for neutropenic fever. h/o diabetes, hypertension, depression Plan 1. continue abx per ID 2. monitor blood cultures 3. no transfusion today 4. stop SSI Novolog, continue Metformin. Attending Statement The exam, history, and the medical decision-making described in the above note were completed with the assistance of the mid-level provider. I reviewed and agree with the findings presented. I attest that I had a [id number] encounter with the patient on the same day, and personally performed and documented my assessment and findings in the medical record. Pt seen and examined. Pale, appetite good, no headaches, energy better post blood. Reviewed WBC still low but monocytosis suggest recovery, usually heralds the neutrophil recovery. Advised to reschedule work up at [facility] for end of the week, anticipate his bone marrow will be recovered. Janet Holm Dec 28, 2016 09:50 Kavitha Brown MD Dec 28, 2016 14:02
[2016-12-28 11:35] LABS: BICARBONATE 31.3 MEQ/L (21.0-32.0); POTASSIUM 3.2 MEQ/L (3.5-5.1)
[2016-12-28] MEDS ORDERED: POTASSIUM CHLORIDE 10 MEQ CONTROLLED RELEASE TAB PO ONE (12:00)
[2016-12-28] MEDS: DIAZEPAM 10 MG TAB PO SCH (21:00)
[2016-12-28] MEDS: ATENOLOL 100 MG TAB PO SCH (21:08)
[2016-12-29] VITALS: BP 140/90; PULSE 95; RESP 19; TEMP 98.7; O2SAT 98
[2016-12-29] MEDS: VANCOMYCIN INJ 2,000 MG in SODIUM CHLORID 0.9% 500 ML INJ 500 ML IV SCH ×2 (00:22→13:24)
[2016-12-29] MEDS: DIAZEPAM 10 MG TAB PO SCH ×2 (00:23→21:00)
[2016-12-29] MEDS: SUCRALFATE 1 GM/10 ML CUP PO SCH ×4 (00:30→21:00)
[2016-12-29] MEDS: CEFEPIME INJ 2,000 MG in SODIUM CHLORIDE 0.9% INJ 100 ML IV SCH ×3 (05:07→21:32)
[2016-12-29 05:15] VITALS: BP 134/83; PULSE 88; RESP 16; TEMP 97.5; O2SAT 98
[2016-12-29] MEDS: INSULIN ASPART SUPPLEMENTAL SCALE SQ SCH ×4 (06:09→21:00)
[2016-12-29 06:35] LABS: HEMATOCRIT 22.7 % (39.0-51.0); MEAN CELL VOLUME 77.4 FL (80.0-100.0); MEAN CORPUSCULAR HEMOGLOBIN 27.5 PG (27.0-34.0); MEAN CORPUSCULAR HGB CONC 35.5 % (32.0-36.0); RED BLOOD COUNT 2.93 MIL/MM3 (4.50-5.90); WHITE BLOOD COUNT 0.3 TH/MM3 (4.0-11.0)
[2016-12-29 06:40] LABS: HEMO FLAGS AUTO DIFF
[2016-12-29 06:42] LABS: PLATELET COUNT 13 TH/MM3 (150-450)
[2016-12-29 08:25] LABS: CORRECTED NUCLEATED RBC 4 /100 WBC (0-0); POLYS (SEG NEUTROPHILS) 16 % (16-70); WBC DIFF SAMPLE 25
[2016-12-29 08:26] LABS: PLATELET ESTIMATE SMEAR RARE (NORMAL); PLATELET MORPHOLOGY NORMAL (NORMAL); SCAN/DIFF FINAL DIFF MANUAL
[2016-12-29] MEDS: SERTRALINE HCL 50 MG TAB PO SCH (08:53)
[2016-12-29] MEDS: ACETAMINOPHEN 325 MG TAB PO PRN (08:53)
[2016-12-29] MEDS: metFORMIN HCL 850 MG TAB PO SCH ×2 (08:53→21:30)
--- NOTE | 2016-12-29 09:19 | HHI.IDPN ---
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 Recently he was diagnosed to be in relapse, and he was started on chemotherapy again. He last chemotherapy was about a few weeks ago, and patient was seen in follow- up and was found to be neutropenic as expected. He has been following his temperature, and on the day of admission his temperature went up to 100.5. Patient was advised to go to the hospital for further management. Patient denies any significant respiratory complaint. He's had some nausea but no vomiting. He denies any abdominal pain or any diarrhea. Denies any urinary complaint. He denies any sores in his mouth or any swallowing difficulty or odynophagia. He has not noted any skin rash. Patient has a PICC line in his right upper extremity where he gets his chemotherapy. Notes reviewed Temps C/O [place], moves around Some photophobia Neck not stiff Some dripping in back of his throat when he brushes his teeth Some nausea, no vomiting No diarrhea Voiding ok WBC 0.3, 16% neutrophils Antibiotics Vancomycin Cefepime Lines PICC Past Medical History Acute myeloid leukemia. Hemochromatosis. ADHD. Hypercholesterolemia. Anxiety disorder. 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 Tonsillectomy. Undescended testis. Colonoscopy. Cardiac catheterization. Anal sphincterotomy. Allergies: Coded Allergies: Vancomycin (Verified Adverse Reaction, Severe, Diarrhea, 10/29/16) Per pt and his record review he uneventfully took IV vancomycin in December 2015. In october 16-2016 he developped severe diarrhea during vancomycin use, no rash per his account. Objective . Vital Signs Date Time Temp Pulse Resp B/P Pulse Ox O2 Delivery O2 Flow Rate FiO2 12/29/16 05:15 97.5 88 16 134/83 98 12/29/16 00:00 98.7 95 19 140/90 98 12/28/16 20:00 99.5 101 18 141/88 95 12/28/16 16:00 99.6 85 18 154/86 99 12/28/16 12:00 99.0 82 18 148/88 97 12/28/16 12/28/16 12/29/16 15:00 23:00 07:00 Intake Total 3560 ml 1380 ml 625 ml Balance 3560 ml 1380 ml 625 ml Intake Oral 1440 ml 480 ml IV Total 2120 ml 900 ml 625 ml # Voids 4 3 # Bowel Movements 0 1 . Laboratory Tests Test 12/28/16 12/29/16 04:30 05:10 White Blood Count 0.2 TH/MM3 0.3 TH/MM3 Red Blood Count 2.94 MIL/MM3 2.93 MIL/MM3 Hemoglobin 8.2 GM/DL 8.0 GM/DL Hematocrit 22.6 % 22.7 % Mean Corpuscular Volume 76.8 FL 77.4 FL Mean Corpuscular Hemoglobin 27.8 PG 27.5 PG Mean Corpuscular Hemoglobin 36.2 % 35.5 % Concent Red Cell Distribution Width 14.1 % 14.0 % Platelet Count 18 TH/MM3 13 TH/MM3 Mean Platelet Volume 8.9 FL 8.5 FL Neutrophils (%) (Auto) % % Lymphocytes (%) (Auto) % % Monocytes (%) (Auto) % % Eosinophils (%) (Auto) % % Basophils (%) (Auto) % % Neutrophils # (Auto) TH/MM3 TH/MM3 Lymphocytes # (Auto) TH/MM3 TH/MM3 Monocytes # (Auto) TH/MM3 TH/MM3 Eosinophils # (Auto) TH/MM3 TH/MM3 Basophils # (Auto) TH/MM3 TH/MM3 CBC Comment AUTO DIFF AUTO DIFF Differential Total Cells 25 25 Counted Lymphocytes % 12 % 16 % Monocytes % 88 % 68 % Neutrophils # (Manual) 0.0 TH/MM3 0.0 TH/MM3 Differential Comment FINAL DIFF FINAL DIFF MANUAL MANUAL Platelet Estimate RARE RARE Platelet Morphology Comment NORMAL NORMAL Red Cell Morphology Comment NORMAL Neutrophils % (Manual) 16 % Nucleated Red Blood Cells 4 /100 WBC Laboratory Tests Test 12/28/16 10:50 Sodium Level 141 MEQ/L Potassium Level 3.2 MEQ/L Chloride Level 104 MEQ/L Carbon Dioxide Level 31.3 MEQ/L Anion Gap 6 MEQ/L Blood Urea Nitrogen 8 MG/DL Creatinine 0.42 MG/DL Estimat Glomerular Filtration 217 ML/MIN Rate Random Glucose 115 MG/DL Calcium Level 8.4 MG/DL Microbiology Date/Time Procedure Status Source Growth 12/26/16 11:50 Influenza Types A,B Antigen (MALINI) - Final Complete Nasal Aspirate NEGATIVE FOR FLU A AND B ANTIGEN.... 12/26/16 23:29 Aerobic Blood Culture - Preliminary Resulted Blood Line NO GROWTH IN 2 DAYS 12/26/16 23:29 Anaerobic Blood Culture - Preliminary Resulted Blood Line NO GROWTH IN 2 DAYS 12/27/16 10:16 Aerobic Blood Culture - Preliminary Resulted Blood Peripheral NO GROWTH IN 1 DAY 12/27/16 10:16 Anaerobic Blood Culture - Final Resulted Blood Peripheral QNS - SEE AEROBE REPORT Imaging Chest X-Ray 12/25/16 0000 Signed Impressions: Service Date/Time: December 11:30 - CONCLUSION: PICC in good position. The lungs are clear. The exam is stable compared to previous dated 11/03/16. Avi Ceron MD Physical Exam GENERAL: awake and alert, not in respiratory distress. Has alopecia SKIN: Warm and dry. No generalized rash, no ecchymoses and no evidence of embolic lesions. HEAD: Atraumatic. Normocephalic. No temporal wasting, or tenderness. EYES: [place] conjunctiva. No petechia or hemorrhage. Pupils equal, round and reactive to light. Extraocular movements full and intact. No scleral icterus. No injection or drainage. EARS, NOSE AND THROAT: Nose without bleeding or purulent nasal discharge. No sinus tenderness. Mucous membranes pink and moist. No oral lesions noted. No exudate. No oral thrush. NECK: Supple and not tender, no meningeal signs CARDIOVASCULAR: Regular rate and rhythm. No murmurs, rubs or gallops heard RESPIRATORY: Clear to auscultation. Breath sounds equal bilaterally. No rales , wheezing or rhonchi ABDOMEN: Soft, non-tender, nondistended. Bowel sounds present and normoactive. No guarding. No rebound. No organomegaly. Has some red rash in suprapubic area with petechia EXTREMITIES: No clubbing, cyanosis, or edema. No joint effusion, has good ROM. No calf tenderness. Well perfused and warm. NEUROLOGICAL: Awake and alert. Cranial nerves grossly intact. Motor grossly within normal limits. PSYCHIATRIC: Normal affect, calm and cooperative. LINE: PICC RUE with no evidence of infection Assessment & Plan Remarks IMPRESSION Neutropenic fever, non-localizing Acute myeloid leukemia, in relapse, getting chemo Previous RX for Fusobacterium and Clostridium sepsis Headache RECOMMENDATION Follow C/S and adjust Abx Continue cefepime and Vanco - empiric for fever and neutropenia If high temps continues will add Micafungin Follow temps Follow CBC D/W H [place] - image brain Lotrimin to rash on abdomen Monitor progress Heather Bhatt MD Dec 29, 2016 09:18
[2016-12-29 09:30] VITALS: BP 142/90; PULSE 81; RESP 20; TEMP 97.8; O2SAT 98
[2016-12-29] MEDS: CLOTRIMAZOLE 1% CREAM 15 GM TOPICAL SCH ×2 (11:56→21:31)
[2016-12-29] MEDS: SODIUM CHLOR 0.9% 1000 ML INJ 1,000 ML IV SCH ×2 (11:56→22:40)
[2016-12-29 12:00] VITALS: BP 145/84; PULSE 94; RESP 16; TEMP 96.8; O2SAT 97
--- NOTE | 2016-12-29 12:20 | PD.ONC.PN ---
Subjective Subjective Remarks Afebrile overnight. Headache comes and goes, still frontal in location. Patient attributes to stress. Has some blood oozing around front tooth. Noticed a rash on suprapubic area. Objective Data Date Time Temp Pulse Resp B/P Pulse Ox O2 Delivery O2 Flow Rate FiO2 12/29/16 09:30 97.8 81 20 142/90 98 12/29/16 05:15 97.5 88 16 134/83 98 12/29/16 00:00 98.7 95 19 140/90 98 12/28/16 20:00 99.5 101 18 141/88 95 12/28/16 16:00 99.6 85 18 154/86 99 12/29/16 12/29/16 12/29/16 07:00 15:00 23:00 Intake Total 625 ml Balance 625 ml Result Diagram: 12/29/16 0510 12/28/16 1050 Laboratory Results Laboratory Tests Test 12/29/16 12/29/16 05:10 06:47 White Blood Count 0.3 TH/MM3 Red Blood Count 2.93 MIL/MM3 Hemoglobin 8.0 GM/DL Hematocrit 22.7 % Mean Corpuscular Volume 77.4 FL Mean Corpuscular Hemoglobin 27.5 PG Mean Corpuscular Hemoglobin 35.5 % Concent Red Cell Distribution Width 14.0 % Platelet Count 13 TH/MM3 Mean Platelet Volume 8.5 FL Neutrophils (%) (Auto) % Lymphocytes (%) (Auto) % Monocytes (%) (Auto) % Eosinophils (%) (Auto) % Basophils (%) (Auto) % Neutrophils # (Auto) TH/MM3 Lymphocytes # (Auto) TH/MM3 Monocytes # (Auto) TH/MM3 Eosinophils # (Auto) TH/MM3 Basophils # (Auto) TH/MM3 CBC Comment AUTO DIFF Differential Total Cells 25 Counted Neutrophils % (Manual) 16 % Lymphocytes % 16 % Monocytes % 68 % Neutrophils # (Manual) 0.0 TH/MM3 Nucleated Red Blood Cells 4 /100 WBC Differential Comment FINAL DIFF MANUAL Platelet Estimate RARE Platelet Morphology Comment NORMAL Blood Bank Comment Culture Results Microbiology Date/Time Procedure Status Source Growth 12/26/16 23:29 Aerobic Blood Culture - Preliminary Resulted Blood Line NO GROWTH IN 3 DAYS 12/26/16 23:29 Anaerobic Blood Culture - Preliminary Resulted Blood Line NO GROWTH IN 3 DAYS 12/27/16 10:16 Aerobic Blood Culture - Preliminary Resulted Blood Peripheral NO GROWTH IN 2 DAYS 12/27/16 10:16 Anaerobic Blood Culture - Final Resulted Blood Peripheral QNS - SEE AEROBE REPORT Administered Medications Medications (Trade) Dose Ordered Sig/Génesis Route PRN Reason Start Time Stop Time Status Last Admin Dose Admin Acetaminophen (Tylenol) 650 mg Q4H PRN PO PAIN SCALE 0-3 OR TEMP> 100.5F 12/25/16 10:45 12/29/16 08:53 Atenolol (Tenormin) 100 mg HS PO 12/25/16 21:00 12/28/16 21:08 Sertraline HCl (Zoloft) 50 mg DAILY PO 12/26/16 09:00 12/29/16 08:53 Diazepam (Valium) 10 mg HS PO 12/25/16 21:00 12/29/16 00:23 Oxycodone HCl 5 mg 5 mg Q4H PRN PO PAIN SCALE 4 TO 10 12/25/16 16:00 12/29/16 11:58 Vancomycin HCl/ Sodium Chloride (Vancomycin Inj/ NS 500 ml Inj) 520 ml @ 250 mls/hr Q12H IV 12/26/16 01:00 12/29/16 00:22 Metformin HCl 850 mg 850 mg BID PO 12/25/16 21:00 12/29/16 08:53 Cefepime HCl 2000 mg/Sodium Chloride 100 ml @ 200 mls/hr Q8H IV 12/26/16 05:00 12/29/16 05:07 Sodium Chloride (NS 1000 ml Inj) 1,000 ml @ 84 mls/hr [id number] IV 12/26/16 11:15 12/29/16 11:56 Sucralfate (Carafate Liq) 1 gm ACHS PO 12/26/16 16:00 12/26/16 16:23 Clotrimazole (Lotrimin 1% Cream) 1 applic Q12HR TOPICAL 12/29/16 10:00 12/29/16 11:56 Objective Remarks GENERAL: Middle aged male, upright in bed in [facility]. SKIN: Warm and dry. PICC line site without bleeding. fine papular and petechial rash along supra-pubic area. HEAD: Normocephalic. MOUTH: very small amount of oozing around front tooth. no swelling EYES: No scleral icterus. No injection or drainage. NECK: Supple, trachea midline. CARDIOVASCULAR: Regular rate and rhythm RESPIRATORY: Breath sounds equal bilaterally. No accessory muscle use. GASTROINTESTINAL: Abdomen soft, non-tender, nondistended. EXTREMITIES: No cyanosis NEUROLOGICAL: awake and alert, normal speech Assessment/Plan Problem List: (1) Fever and neutropenia Status: Acute Plan: --BC no growth --on Vanco and Cefepime --on Lotrimin for suprapubic rash. -- infectious disease following --CXR clear --U/a clear (2) AML (acute myeloid leukemia) Status: Acute Plan: --currently in remission --just completed C1 consolidation therapy (3) Depression Status: Acute Plan: --on Zoloft --takes valium for anxiety (4) Anemia Status: Acute Plan: --transfuse for hgb<7.5mg/dL (5) Hypertension Status: Acute Plan: --on Atenolol (6) Thrombocytopenia Status: Acute Plan: --transfuse for platelet count less than 15K (7) Type 2 diabetes mellitus Status: Acute Plan: --on Metformin 850mg PO BID Assessment 46y/o male with relapsed AML, admitted for neutropenic fever. h/o diabetes, hypertension, depression Attending Statement Denies any fever Patient is upset for missing appointment at [facility] Extensive discussion with the patient and WBC is slowly coming up continue the same Janet Holm Dec 29, 2016 12:20 Alexandra Olea MD Dec 29, 2016 23:30
[2016-12-29] MEDS: DIAZEPAM 5 MG TAB PO PRN (14:25)
[2016-12-29 14:57] LABS: POTASSIUM 3.3 MEQ/L (3.5-5.1)
[2016-12-29] MEDS ORDERED: POTASSIUM CHLORIDE 10 MEQ CONTROLLED RELEASE TAB PO ONE (15:00)
[2016-12-29 17:30] VITALS: BP 125/80; PULSE 89; RESP 16; TEMP 97.4; O2SAT 98
[2016-12-29 20:00] VITALS: BP 141/80; PULSE 87; RESP 17; TEMP 97.1; O2SAT 97
[2016-12-29 21:12] LABS: MEAN CORPUSCULAR HGB CONC 36.2 % (32.0-36.0)
[2016-12-29] MEDS: ATENOLOL 100 MG TAB PO SCH (21:29)
[2016-12-29] MEDS ORDERED: PICC PRN After Blood Draw NS Lock Flush IV FLUSH (23:45)
[2016-12-29] MEDS ORDERED: SODIUM CHLORIDE 0.9% FLUSH 10 ML FLUSH IV FLUSH PRN (23:45)
[2016-12-29] MEDS ORDERED: PICC PRN Heparin 100 units/ml Lock Flush IV FLUSH (23:45)
[2016-12-30] MEDS: VANCOMYCIN INJ 2,000 MG in SODIUM CHLORID 0.9% 500 ML INJ 500 ML IV SCH ×2 (00:16→13:46)
[2016-12-30] MEDS: SODIUM CHLOR 0.9% 1000 ML INJ 1,000 ML IV SCH (00:18)
[2016-12-30] MEDS: DIAZEPAM 10 MG TAB PO SCH (00:18)
[2016-12-30 00:21] VITALS: BP 146/92; PULSE 86; RESP 18; TEMP 97.7; O2SAT 96
[2016-12-30 04:00] VITALS: BP 129/83; PULSE 84; RESP 16; TEMP 97.9; O2SAT 96
[2016-12-30] MEDS: INSULIN ASPART SUPPLEMENTAL SCALE SQ SCH (04:24)
[2016-12-30] MEDS: CEFEPIME INJ 2,000 MG in SODIUM CHLORIDE 0.9% INJ 100 ML IV SCH ×3 (04:27→20:36)
[2016-12-30] MEDS: SUCRALFATE 1 GM/10 ML CUP PO SCH (04:34)
[2016-12-30 06:28] LABS: HEMATOCRIT 21.2 % (39.0-51.0); MEAN CELL VOLUME 76.8 FL (80.0-100.0); MEAN CORPUSCULAR HEMOGLOBIN 27.8 PG (27.0-34.0); PLATELET COUNT 30 TH/MM3 (150-450); RED BLOOD COUNT 2.76 MIL/MM3 (4.50-5.90); WHITE BLOOD COUNT 0.5 TH/MM3 (4.0-11.0)
[2016-12-30 06:35] LABS: HEMO FLAGS AUTO DIFF
[2016-12-30 06:48] LABS: BICARBONATE 32.2 MEQ/L (21.0-32.0); POTASSIUM 3.3 MEQ/L (3.5-5.1)
[2016-12-30] MEDS ORDERED: POTASSIUM CHLORIDE 10 MEQ CONTROLLED RELEASE TAB PO ONE (08:45)
[2016-12-30 08:50] LABS: BANDS 12 % (0-6); NEUTROPHIL # MANUAL DIFF 0.2 TH/MM3 (1.8-7.7); PLATELET ESTIMATE SMEAR LOW (NORMAL); PLATELET MORPHOLOGY NORMAL (NORMAL); POLYS (SEG NEUTROPHILS) 24 % (16-70); WBC DIFF SAMPLE 25
[2016-12-30 08:51] LABS: SCAN/DIFF FINAL DIFF MANUAL
[2016-12-30 09:00] VITALS: BP 137/87; PULSE 89; RESP 18; TEMP 97.7; O2SAT 96
[2016-12-30] MEDS: PICC Daily Heparin 100 unit/mL Lock Flush IV FLUSH SCH (09:00)
[2016-12-30] MEDS: CLOTRIMAZOLE 1% CREAM 15 GM TOPICAL SCH ×2 (09:00→20:41)
[2016-12-30] MEDS: SERTRALINE HCL 50 MG TAB PO SCH (09:06)
[2016-12-30] MEDS: metFORMIN HCL 850 MG TAB PO SCH ×2 (09:06→20:34)
[2016-12-30] MEDS: ACETAMINOPHEN 325 MG TAB PO PRN (09:10)
--- NOTE | 2016-12-30 11:23 | PD.ONC.PN ---
Subjective Subjective Remarks Afebrile overnight. Had frontal headache this morning, improving now. Has not had breakfast yet. suprapubic rash improved. Objective Data Date Time Temp Pulse Resp B/P Pulse Ox O2 Delivery O2 Flow Rate FiO2 12/30/16 09:00 97.7 89 18 137/87 96 12/30/16 04:00 97.9 84 16 129/83 96 12/30/16 00:21 97.7 86 18 146/92 96 12/29/16 20:00 97.1 87 17 141/80 97 12/29/16 17:30 97.4 89 16 125/80 98 12/29/16 12:00 96.8 94 16 145/84 97 12/30/16 12/30/16 12/30/16 06:59 14:59 22:59 Intake Total 720 ml Balance 720 ml Result Diagram: 12/30/16 0420 12/30/16 0420 Laboratory Results Laboratory Tests Test 12/30/16 04:20 White Blood Count 0.5 TH/MM3 Red Blood Count 2.76 MIL/MM3 Hemoglobin 7.7 GM/DL Hematocrit 21.2 % Mean Corpuscular Volume 76.8 FL Mean Corpuscular Hemoglobin 27.8 PG Mean Corpuscular Hemoglobin 36.2 % Concent Red Cell Distribution Width 14.0 % Platelet Count 30 TH/MM3 Mean Platelet Volume 8.1 FL Neutrophils (%) (Auto) % Lymphocytes (%) (Auto) % Monocytes (%) (Auto) % Eosinophils (%) (Auto) % Basophils (%) (Auto) % Neutrophils # (Auto) TH/MM3 Lymphocytes # (Auto) TH/MM3 Monocytes # (Auto) TH/MM3 Eosinophils # (Auto) TH/MM3 Basophils # (Auto) TH/MM3 CBC Comment AUTO DIFF Differential Total Cells 25 Counted Neutrophils % (Manual) 24 % Band Neutrophils % 12 % Lymphocytes % 8 % Monocytes % 56 % Neutrophils # (Manual) 0.2 TH/MM3 Differential Comment FINAL DIFF MANUAL Platelet Estimate LOW Platelet Morphology Comment NORMAL Sodium Level 141 MEQ/L Potassium Level 3.3 MEQ/L Chloride Level 104 MEQ/L Carbon Dioxide Level 32.2 MEQ/L Anion Gap 5 MEQ/L Blood Urea Nitrogen 8 MG/DL Creatinine 0.46 MG/DL Estimat Glomerular Filtration 195 ML/MIN Rate Random Glucose 133 MG/DL Calcium Level 8.7 MG/DL Administered Medications Medications (Trade) Dose Ordered Sig/Génesis Route PRN Reason Start Time Stop Time Status Last Admin Dose Admin Acetaminophen (Tylenol) 650 mg Q4H PRN PO PAIN SCALE 0-3 OR TEMP> 100.5F 12/25/16 10:45 12/30/16 09:10 Atenolol (Tenormin) 100 mg HS PO 12/25/16 21:00 12/29/16 21:29 Sertraline HCl (Zoloft) 50 mg DAILY PO 12/26/16 09:00 12/30/16 09:06 Diazepam (Valium) 10 mg HS PO 12/25/16 21:00 12/30/16 00:18 Oxycodone HCl 5 mg 5 mg Q4H PRN PO PAIN SCALE 4 TO 10 12/25/16 16:00 12/29/16 21:30 Vancomycin HCl/ Sodium Chloride (Vancomycin Inj/ NS 500 ml Inj) 520 ml @ 250 mls/hr Q12H IV 12/26/16 01:00 12/30/16 00:16 Metformin HCl 850 mg 850 mg BID PO 12/25/16 21:00 12/30/16 09:06 Cefepime HCl/ Sodium Chloride (Maxipime Inj/NS Inj) 100 ml @ 200 mls/hr Q8H IV 12/26/16 05:00 12/30/16 04:27 Diazepam 5 mg 5 mg Q8HR PRN PO anxiety 12/26/16 11:15 12/29/16 14:25 Sodium Chloride (NS 1000 ml Inj) 1,000 ml @ 84 mls/hr [id number] IV 12/26/16 11:15 12/30/16 00:18 Clotrimazole (Lotrimin 1% Cream) 1 applic Q12HR TOPICAL 12/29/16 10:00 12/30/16 09:00 Sodium Chloride (NS Flush) 5 ml UNSCH PRN IV FLUSH SEE PROTOCOL TABLE 12/29/16 23:45 12/30/16 04:25 Sodium Chloride (NS Flush) 5 ml UNSCH PRN IV FLUSH SEE PROTOCOL TABLE 12/29/16 23:45 12/30/16 04:26 Objective Remarks GENERAL: Middle aged male, upright in bed in [facility]. SKIN: Warm and dry. PICC line site clean. rash on suprapubic area cleared. HEAD: Normocephalic. EYES: No scleral icterus. No injection or drainage. NECK: Supple, trachea midline. CARDIOVASCULAR: Regular rate and rhythm RESPIRATORY: Breath sounds equal bilaterally. No accessory muscle use. GASTROINTESTINAL: Abdomen soft, non-tender, nondistended. EXTREMITIES: No cyanosis NEUROLOGICAL: awake and alert, normal speech. moving all extremities. Assessment/Plan Problem List: (1) Fever and neutropenia Status: Acute Plan: 12/30: counts improving. no transfusion today. continue antibiotics. --BC no growth --on Vanco and Cefepime --on Lotrimin for suprapubic rash. -- infectious disease following --CXR clear --U/a clear (2) AML (acute myeloid leukemia) Status: Acute Plan: --currently in remission --just completed C1 consolidation therapy (3) Depression Status: Acute Plan: --on Zoloft --takes valium for anxiety (4) Anemia Status: Acute Plan: --transfuse for hgb<7.5mg/dL (5) Hypertension Status: Acute Plan: --on Atenolol (6) Thrombocytopenia Status: Acute Plan: --transfuse for platelet count less than 15K (7) Type 2 diabetes mellitus Status: Acute Plan: --on Metformin 850mg PO BID Assessment 46y/o male with relapsed AML, admitted for neutropenic fever. h/o diabetes, hypertension, depression Attending Statement no new c/o WBC is slowly coming up. afebrile on present A/B d/w study coordinator at [facility] to reschedule his appt. Janet Holm Dec 30, 2016 11:22 Alexandra Olea MD Dec 30, 2016 23:46
[2016-12-30] MEDS ORDERED: Vancomycin Consult Pharmacy 1 EA OTHER SCH (12:00)
[2016-12-30 13:45] VITALS: BP 122/81; PULSE 88; RESP 16; TEMP 96.7; O2SAT 95
--- NOTE | 2016-12-30 14:06 | HHI.IDPN ---
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 Recently he was diagnosed to be in relapse, and he was started on chemotherapy again. He last chemotherapy was about a few weeks ago, and patient was seen in follow- up and was found to be neutropenic as expected. He has been following his temperature, and on the day of admission his temperature went up to 100.5. Patient was advised to go to the hospital for further management. Patient denies any significant respiratory complaint. He's had some nausea but no vomiting. He denies any abdominal pain or any diarrhea. Denies any urinary complaint. He denies any sores in his mouth or any swallowing difficulty or odynophagia. He has not noted any skin rash. Patient has a PICC line in his right upper extremity where he gets his chemotherapy. Notes reviewed Temps ok [place] better WBC up to 0.5 Some nausea, no vomiting No diarrhea Voiding ok BC negative Antibiotics Vancomycin Cefepime Lines PICC Past Medical History Acute myeloid leukemia. Hemochromatosis. ADHD. Hypercholesterolemia. Anxiety disorder. 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 Tonsillectomy. Undescended testis. Colonoscopy. Cardiac catheterization. Anal sphincterotomy. Allergies: Coded Allergies: Vancomycin (Verified Adverse Reaction, Severe, Diarrhea, 10/29/16) Per pt and his record review he uneventfully took IV vancomycin in December 2015. In october 16-2016 he developped severe diarrhea during vancomycin use, no rash per his account. Objective . Vital Signs Date Time Temp Pulse Resp B/P Pulse Ox O2 Delivery O2 Flow Rate FiO2 12/30/16 13:45 96.7 88 16 122/81 95 12/30/16 09:00 97.7 89 18 137/87 96 12/30/16 04:00 97.9 84 16 129/83 96 12/30/16 00:21 97.7 86 18 146/92 96 12/29/16 20:00 97.1 87 17 141/80 97 12/29/16 17:30 97.4 89 16 125/80 98 12/29/16 12/29/16 12/30/16 15:00 23:00 07:00 Intake Total 1617 ml 860 ml 720 ml Balance 1617 ml 860 ml 720 ml Intake Oral 720 ml IV Total 647 ml 860 ml 720 ml Platelets 250 ml # Voids 4 # Bowel Movements 0 . Laboratory Tests Test 12/29/16 12/30/16 05:10 04:20 White Blood Count 0.3 TH/MM3 0.5 TH/MM3 Red Blood Count 2.93 MIL/MM3 2.76 MIL/MM3 Hemoglobin 8.0 GM/DL 7.7 GM/DL Hematocrit 22.7 % 21.2 % Mean Corpuscular Volume 77.4 FL 76.8 FL Mean Corpuscular Hemoglobin 27.5 PG 27.8 PG Mean Corpuscular Hemoglobin 35.5 % 36.2 % Concent Red Cell Distribution Width 14.0 % 14.0 % Platelet Count 13 TH/MM3 30 TH/MM3 Mean Platelet Volume 8.5 FL 8.1 FL Neutrophils (%) (Auto) % % Lymphocytes (%) (Auto) % % Monocytes (%) (Auto) % % Eosinophils (%) (Auto) % % Basophils (%) (Auto) % % Neutrophils # (Auto) TH/MM3 TH/MM3 Lymphocytes # (Auto) TH/MM3 TH/MM3 Monocytes # (Auto) TH/MM3 TH/MM3 Eosinophils # (Auto) TH/MM3 TH/MM3 Basophils # (Auto) TH/MM3 TH/MM3 CBC Comment AUTO DIFF AUTO DIFF Differential Total Cells 25 25 Counted Neutrophils % (Manual) 16 % 24 % Lymphocytes % 16 % 8 % Monocytes % 68 % 56 % Neutrophils # (Manual) 0.0 TH/MM3 0.2 TH/MM3 Nucleated Red Blood Cells 4 /100 WBC Differential Comment FINAL DIFF FINAL DIFF MANUAL MANUAL Platelet Estimate RARE LOW Platelet Morphology Comment NORMAL NORMAL Band Neutrophils % 12 % Laboratory Tests Test 12/29/16 12/30/16 09:00 04:20 Sodium Level 142 MEQ/L 141 MEQ/L Potassium Level 3.3 MEQ/L 3.3 MEQ/L Chloride Level 105 MEQ/L 104 MEQ/L Carbon Dioxide Level 31.0 MEQ/L 32.2 MEQ/L Anion Gap 6 MEQ/L 5 MEQ/L Blood Urea Nitrogen 8 MG/DL 8 MG/DL Creatinine 0.43 MG/DL 0.46 MG/DL Estimat Glomerular Filtration 211 ML/MIN 195 ML/MIN Rate Random Glucose 90 MG/DL 133 MG/DL Calcium Level 8.7 MG/DL 8.7 MG/DL Imaging Chest X-Ray 12/25/16 0000 Signed Impressions: Service Date/Time: December 11:30 - CONCLUSION: PICC in good position. The lungs are clear. The exam is stable compared to previous dated 11/03/16. Avi Ceron MD Physical Exam GENERAL: awake and alert, not in respiratory distress. Has alopecia SKIN: Warm and dry. No generalized rash, no ecchymoses and no evidence of embolic lesions. HEAD: Atraumatic. Normocephalic. No temporal wasting, or tenderness. EYES: [place] conjunctiva. No petechia or hemorrhage. Pupils equal, round and reactive to light. No scleral icterus. No injection or drainage. EARS, NOSE AND THROAT: Nose without nasal discharge. No sinus tenderness. Mucous membranes pink and moist. No oral lesions noted. No exudate. No oral thrush. NECK: Supple and not tender, no meningeal signs CARDIOVASCULAR: Regular rate and rhythm. No murmurs, rubs or gallops heard RESPIRATORY: Clear to auscultation. Breath sounds equal bilaterally. No rales , wheezing or rhonchi ABDOMEN: Soft, non-tender, nondistended. Bowel sounds present and normoactive. No guarding. No rebound. No organomegaly. Has some red rash in suprapubic area with petechia EXTREMITIES: No clubbing, cyanosis, or edema. No calf tenderness. Well perfused and warm. NEUROLOGICAL: Awake and alert. Cranial nerves grossly intact. Motor grossly within normal limits. PSYCHIATRIC: Normal affect, calm and cooperative. LINE: PICC RUE with no evidence of infection Assessment & Plan Remarks IMPRESSION Neutropenic fever, non-localizing Acute myeloid leukemia, in relapse, getting chemo Previous RX for Fusobacterium and Clostridium sepsis Headache, better RECOMMENDATION Follow C/S and adjust Abx Continue cefepime and Vanco - empiric for fever and neutropenia If high temps continues will add Micafungin Follow temps Follow CBC Lotrimin to rash on abdomen Monitor progress Heather Bhatt MD Dec 30, 2016 14:06
[2016-12-30 17:00] VITALS: BP 134/80; PULSE 83; RESP 18; TEMP 97.9; O2SAT 98
[2016-12-30 20:00] VITALS: BP 177/98; PULSE 100; RESP 18; TEMP 98.1; O2SAT 95
[2016-12-30] MEDS: ATENOLOL 100 MG TAB PO SCH (20:34)
[2016-12-31] VITALS (7 sets, daily range): BP systolic 119–155; BP diastolic 82–98; PULSE 82–89; RESP 16–18; TEMP 96.9–98; O2SAT 94–98
[2016-12-31] MEDS: DIAZEPAM 10 MG TAB PO SCH ×2 (00:18→20:44)
[2016-12-31] MEDS: VANCOMYCIN INJ 2,000 MG in SODIUM CHLORID 0.9% 500 ML INJ 500 ML IV SCH ×2 (00:18→16:52)
[2016-12-31] MEDS: CEFEPIME INJ 2,000 MG in SODIUM CHLORIDE 0.9% INJ 100 ML IV SCH ×3 (05:15→20:43)
[2016-12-31 05:45] LABS: MEAN CELL VOLUME 77.3 FL (80.0-100.0); MEAN CORPUSCULAR HEMOGLOBIN 27.2 PG (27.0-34.0); MEAN CORPUSCULAR HGB CONC 35.2 % (32.0-36.0); PLATELET COUNT 28 TH/MM3 (150-450); RED BLOOD COUNT 2.71 MIL/MM3 (4.50-5.90); RED CELL DISTRIBUTION WIDTH 13.7 % (11.6-17.2); WHITE BLOOD COUNT 0.6 TH/MM3 (4.0-11.0)
[2016-12-31 06:10] LABS: BICARBONATE 33.1 MEQ/L (21.0-32.0); POTASSIUM 3.3 MEQ/L (3.5-5.1)
[2016-12-31 06:40] LABS: HEMO FLAGS AUTO DIFF
[2016-12-31 06:42] LABS: HEMATOCRIT 20.9 % (39.0-51.0)
[2016-12-31] MEDS ORDERED: ACETAMINOPHEN 325 MG TAB PO PRN (07:45)
[2016-12-31] MEDS: PICC Daily Heparin 100 unit/mL Lock Flush IV FLUSH SCH (09:00)
[2016-12-31] MEDS: SERTRALINE HCL 50 MG TAB PO SCH (09:03)
[2016-12-31] MEDS: metFORMIN HCL 850 MG TAB PO SCH ×2 (09:03→20:43)
[2016-12-31] MEDS: CLOTRIMAZOLE 1% CREAM 15 GM TOPICAL SCH ×2 (09:04→20:45)
[2016-12-31 09:16] LABS: EOSINOPHILS 3 % (0-4); NEUTROPHIL # MANUAL DIFF 0.2 TH/MM3 (1.8-7.7)
[2016-12-31 09:18] LABS: BANDS 10 % (0-6); POLYS (SEG NEUTROPHILS) 25 % (16-70); WBC DIFF SAMPLE 40
[2016-12-31 09:19] LABS: TOXIC GRANULATION 1+ (NORMAL)
[2016-12-31 09:20] LABS: PLATELET ESTIMATE SMEAR LOW (NORMAL); PLATELET MORPHOLOGY NORMAL (NORMAL); SCAN/DIFF FINAL DIFF MANUAL
[2016-12-31] MEDS ORDERED: POTASSIUM CHLORIDE 20 MEQ CONTROLLED RELEASE TAB PO ONE (10:30)
--- NOTE | 2016-12-31 10:51 | PD.ONC.PN ---
Subjective Subjective Remarks Afebrile overnight. Patient resting in room with . Had headache this morning but now gone. Rash resolved. Objective Data Date Time Temp Pulse Resp B/P Pulse Ox O2 Delivery O2 Flow Rate FiO2 12/31/16 09:00 96.9 85 18 146/91 98 12/31/16 04:00 98.0 85 17 142/89 96 12/31/16 00:00 97.5 89 17 153/98 96 12/30/16 20:00 98.1 100 18 177/98 95 12/30/16 17:00 97.9 83 18 134/80 98 12/30/16 13:45 96.7 88 16 122/81 95 Result Diagram: 12/31/16 0515 12/31/16 0515 Laboratory Results Laboratory Tests Test 12/31/16 05:15 White Blood Count 0.6 TH/MM3 Red Blood Count 2.71 MIL/MM3 Hemoglobin 7.4 GM/DL Hematocrit 20.9 % Mean Corpuscular Volume 77.3 FL Mean Corpuscular Hemoglobin 27.2 PG Mean Corpuscular Hemoglobin 35.2 % Concent Red Cell Distribution Width 13.7 % Platelet Count 28 TH/MM3 Mean Platelet Volume 7.5 FL Neutrophils (%) (Auto) % Lymphocytes (%) (Auto) % Monocytes (%) (Auto) % Eosinophils (%) (Auto) % Basophils (%) (Auto) % Neutrophils # (Auto) TH/MM3 Lymphocytes # (Auto) TH/MM3 Monocytes # (Auto) TH/MM3 Eosinophils # (Auto) TH/MM3 Basophils # (Auto) TH/MM3 CBC Comment AUTO DIFF Differential Total Cells 40 Counted Neutrophils % (Manual) 25 % Band Neutrophils % 10 % Lymphocytes % 18 % Monocytes % 45 % Eosinophils % 3 % Neutrophils # (Manual) 0.2 TH/MM3 Differential Comment FINAL DIFF MANUAL Toxic Granulation 1+ Platelet Estimate LOW Platelet Morphology Comment NORMAL Sodium Level 145 MEQ/L Potassium Level 3.3 MEQ/L Chloride Level 105 MEQ/L Carbon Dioxide Level 33.1 MEQ/L Anion Gap 7 MEQ/L Blood Urea Nitrogen 9 MG/DL Creatinine 0.44 MG/DL Estimat Glomerular Filtration 205 ML/MIN Rate Random Glucose 97 MG/DL Calcium Level 8.7 MG/DL Administered Medications Medications (Trade) Dose Ordered Sig/Génesis Route PRN Reason Start Time Stop Time Status Last Admin Dose Admin Acetaminophen (Tylenol) 650 mg Q4H PRN PO P0-3T100.5ORPREMEDICATEFORBLOODPRODUCT 12/25/16 10:45 12/30/16 09:10 Atenolol (Tenormin) 100 mg HS PO 12/25/16 21:00 12/30/16 20:34 Sertraline HCl (Zoloft) 50 mg DAILY PO 12/26/16 09:00 12/31/16 09:03 Diazepam (Valium) 10 mg HS PO 12/25/16 21:00 12/31/16 00:18 Oxycodone HCl 5 mg 5 mg Q4H PRN PO PAIN SCALE 4 TO 10 12/25/16 16:00 12/30/16 20:35 Vancomycin HCl/ Sodium Chloride (Vancomycin Inj/ NS 500 ml Inj) 520 ml @ 250 mls/hr Q12H IV 12/26/16 01:00 12/31/16 00:18 Metformin HCl 850 mg 850 mg BID PO 12/25/16 21:00 12/31/16 09:03 Cefepime HCl/ Sodium Chloride (Maxipime Inj/NS Inj) 100 ml @ 200 mls/hr Q8H IV 12/26/16 05:00 12/31/16 05:15 Diazepam (Valium) 5 mg Q8HR PRN PO anxiety 12/26/16 11:15 12/29/16 14:25 Clotrimazole (Lotrimin 1% Cream) 1 applic Q12HR TOPICAL 12/29/16 10:00 12/31/16 09:04 Sodium Chloride (NS Flush) 5 ml UNSCH PRN IV FLUSH SEE PROTOCOL TABLE 12/29/16 23:45 12/30/16 04:25 Sodium Chloride (NS Flush) 5 ml UNSCH PRN IV FLUSH SEE PROTOCOL TABLE 12/29/16 23:45 12/30/16 04:26 Objective Remarks GENERAL: Pleasant male, upright in room in [facility]. SKIN: Warm and dry. PICC line site clean. HEAD: Normocephalic. EYES: No scleral icterus. No injection or drainage. NECK: Supple, trachea midline. CARDIOVASCULAR: Regular rate and rhythm RESPIRATORY: Breath sounds equal bilaterally. No accessory muscle use. GASTROINTESTINAL: Abdomen soft, non-tender, nondistended. EXTREMITIES: No cyanosis NEUROLOGICAL: aox3. normal speech. moving all extremities. Assessment/Plan Problem List: (1) Fever and neutropenia Status: Acute Plan: 12/31: continue antibiotics. 1 unit pRBC today. --BC no growth --on Vanco and Cefepime --on Lotrimin for suprapubic rash. -- infectious disease following --CXR clear --U/a clear (2) AML (acute myeloid leukemia) Status: Acute Plan: --currently in remission --just completed C1 consolidation therapy (3) Depression Status: Acute Plan: --on Zoloft --takes valium for anxiety (4) Anemia Status: Acute Plan: --transfuse for hgb<7.5mg/dL (5) Hypertension Status: Acute Plan: --on Atenolol (6) Thrombocytopenia Status: Acute Plan: --transfuse for platelet count less than 15K (7) Type 2 diabetes mellitus Status: Acute Plan: --on Metformin 850mg PO BID Assessment 46y/o male with relapsed AML, admitted for neutropenic fever. h/o diabetes, hypertension, depression Attending Statement no more fevers. C/O weakness WBC is coming up PRBC today. The exam, history, and the medical decision-making described in the above note were completed with the assistance of the mid-level provider. I reviewed and agree with the findings presented. I attest that I had a [id number] encounter with the patient on the same day, and personally performed and documented my assessment and findings in the medical record. Janet Holm Dec 31, 2016 10:51 Alexandra Olea MD Dec 31, 2016 15:08
[2016-12-31] MEDS: ACETAMINOPHEN 325 MG TAB PO PRN ×2 (11:48→16:01)
[2016-12-31] MEDS: LISINOPRIL 10 MG TAB PO SCH (11:49)
[2016-12-31] MEDS ORDERED: PHARMACY ORDERED LAB ONE (12:45)
[2016-12-31] MEDS: ATENOLOL 100 MG TAB PO SCH (20:44)
[2017-01-01] VITALS: BP 137/88; PULSE 87; RESP 17; TEMP 97.2; O2SAT 99
[2017-01-01] MEDS: VANCOMYCIN INJ 2,000 MG in SODIUM CHLORID 0.9% 500 ML INJ 500 ML IV SCH ×2 (01:46→15:22)
[2017-01-01] MEDS: CEFEPIME INJ 2,000 MG in SODIUM CHLORIDE 0.9% INJ 100 ML IV SCH ×3 (05:26→21:21)
[2017-01-01 05:29] VITALS: BP 142/86; PULSE 89; RESP 18; TEMP 97.8; O2SAT 98
[2017-01-01 06:22] LABS: HEMATOCRIT 22.7 % (39.0-51.0); MEAN CELL VOLUME 77.4 FL (80.0-100.0); MEAN CORPUSCULAR HEMOGLOBIN 27.8 PG (27.0-34.0); MEAN CORPUSCULAR HGB CONC 35.9 % (32.0-36.0); PLATELET COUNT 31 TH/MM3 (150-450); RED BLOOD COUNT 2.93 MIL/MM3 (4.50-5.90); RED CELL DISTRIBUTION WIDTH 13.6 % (11.6-17.2); WHITE BLOOD COUNT 0.9 TH/MM3 (4.0-11.0)
[2017-01-01 06:24] LABS: HEMO FLAGS AUTO DIFF
[2017-01-01 07:00] LABS: POTASSIUM 3.4 MEQ/L (3.5-5.1)
[2017-01-01 07:34] LABS: BANDS 8 % (0-6); BASOPHILS 2 % (0-2); METAMYELOCYTES 4 % (0-1); POLYS (SEG NEUTROPHILS) 22 % (16-70); WBC DIFF SAMPLE 50
[2017-01-01 07:35] LABS: NEUTROPHIL # MANUAL DIFF 0.3 TH/MM3 (1.8-7.7); PLATELET ESTIMATE SMEAR LOW (NORMAL); PLATELET MORPHOLOGY NORMAL (NORMAL); SCAN/DIFF FINAL DIFF MANUAL
[2017-01-01] MEDS ORDERED: POTASSIUM CHLORIDE 10 MEQ CONTROLLED RELEASE TAB PO ONE (07:45)
[2017-01-01 08:00] VITALS: BP 121/72; PULSE 83; RESP 16; TEMP 97.5; O2SAT 94
[2017-01-01] MEDS: PICC Daily Heparin 100 unit/mL Lock Flush IV FLUSH SCH (09:00)
[2017-01-01] MEDS: SERTRALINE HCL 50 MG TAB PO SCH (09:06)
[2017-01-01] MEDS: LISINOPRIL 10 MG TAB PO SCH (09:06)
[2017-01-01] MEDS: metFORMIN HCL 850 MG TAB PO SCH ×2 (09:06→21:20)
[2017-01-01] MEDS: CLOTRIMAZOLE 1% CREAM 15 GM TOPICAL SCH ×2 (09:08→21:00)
--- NOTE | 2017-01-01 10:57 | PD.ONC.PN ---
Subjective Subjective Remarks Afebrile overnight. Patient feeling well. No headache. rash gone. Objective Data Date Time Temp Pulse Resp B/P Pulse Ox O2 Delivery O2 Flow Rate FiO2 01/01/17 08:00 97.5 83 16 121/72 94 01/01/17 05:29 97.8 89 18 142/86 98 01/01/17 00:00 97.2 87 17 137/88 99 12/31/16 20:00 98.0 85 17 135/92 98 12/31/16 17:00 97.7 83 16 119/82 98 12/31/16 14:22 97.3 84 155/93 94 12/31/16 13:00 97.6 82 18 141/88 95 Result Diagram: 01/01/17 0530 01/01/17 0530 Laboratory Results Laboratory Tests Test 12/31/16 12/31/16 01/01/17 12:45 13:23 05:30 Blood Type O POSITIVE Antibody Screen NEGATIVE Crossmatch Irradiated/Leukocyte-Reduced RBC Blood Bank Comment Vancomycin Level Trough 18.7 MCG/ML White Blood Count 0.9 TH/MM3 Red Blood Count 2.93 MIL/MM3 Hemoglobin 8.1 GM/DL Hematocrit 22.7 % Mean Corpuscular Volume 77.4 FL Mean Corpuscular Hemoglobin 27.8 PG Mean Corpuscular Hemoglobin 35.9 % Concent Red Cell Distribution Width 13.6 % Platelet Count 31 TH/MM3 Mean Platelet Volume 8.8 FL Neutrophils (%) (Auto) % Lymphocytes (%) (Auto) % Monocytes (%) (Auto) % Eosinophils (%) (Auto) % Basophils (%) (Auto) % Neutrophils # (Auto) TH/MM3 Lymphocytes # (Auto) TH/MM3 Monocytes # (Auto) TH/MM3 Eosinophils # (Auto) TH/MM3 Basophils # (Auto) TH/MM3 CBC Comment AUTO DIFF Differential Total Cells 50 Counted Neutrophils % (Manual) 22 % Band Neutrophils % 8 % Lymphocytes % 10 % Monocytes % 54 % Basophils % 2 % Neutrophils # (Manual) 0.3 TH/MM3 Metamyelocytes 4 % Differential Comment FINAL DIFF MANUAL Platelet Estimate LOW Platelet Morphology Comment NORMAL Sodium Level 144 MEQ/L Potassium Level 3.4 MEQ/L Chloride Level 106 MEQ/L Carbon Dioxide Level 34.0 MEQ/L Anion Gap 4 MEQ/L Blood Urea Nitrogen 10 MG/DL Creatinine 0.46 MG/DL Estimat Glomerular Filtration 195 ML/MIN Rate Random Glucose 99 MG/DL Calcium Level 8.7 MG/DL Administered Medications Medications (Trade) Dose Ordered Sig/Génesis Route PRN Reason Start Time Stop Time Status Last Admin Dose Admin Acetaminophen (Tylenol) 650 mg Q4H PRN PO P0-3T100.5ORPREMEDICATEFORBLOODPRODUCT 12/25/16 10:45 12/31/16 16:01 Atenolol (Tenormin) 100 mg HS PO 12/25/16 21:00 12/31/16 20:44 Sertraline HCl (Zoloft) 50 mg DAILY PO 12/26/16 09:00 01/01/17 09:06 Diazepam (Valium) 10 mg HS PO 12/25/16 21:00 12/31/16 20:44 Oxycodone HCl 5 mg 5 mg Q4H PRN PO PAIN SCALE 4 TO 10 12/25/16 16:00 12/31/16 20:44 Vancomycin HCl/ Sodium Chloride (Vancomycin Inj/ NS 500 ml Inj) 520 ml @ 250 mls/hr Q12H IV 12/26/16 01:00 01/01/17 01:46 Metformin HCl 850 mg 850 mg BID PO 12/25/16 21:00 01/01/17 09:06 Cefepime HCl/ Sodium Chloride (Maxipime Inj/NS Inj) 100 ml @ 200 mls/hr Q8H IV 12/26/16 05:00 01/01/17 05:26 Diazepam (Valium) 5 mg Q8HR PRN PO anxiety 12/26/16 11:15 12/29/16 14:25 Clotrimazole (Lotrimin 1% Cream) 1 applic Q12HR TOPICAL 12/29/16 10:00 01/01/17 09:08 Sodium Chloride (NS Flush) 5 ml UNSCH PRN IV FLUSH SEE PROTOCOL TABLE 12/29/16 23:45 12/30/16 04:25 Sodium Chloride (NS Flush) 5 ml UNSCH PRN IV FLUSH SEE PROTOCOL TABLE 12/29/16 23:45 12/30/16 04:26 Lisinopril (Prinivil) 10 mg DAILY PO 12/31/16 11:00 01/01/17 09:06 Objective Remarks GENERAL: Pleasant male, sitting up in bed in [facility]. SKIN: Warm and dry. PICC line site clean. HEAD: Normocephalic. EYES: No injection or drainage. NECK: Supple, trachea midline. MOUTH: no bleeding. CARDIOVASCULAR: Regular rate and rhythm RESPIRATORY: Breath sounds equal bilaterally. No accessory muscle use. GASTROINTESTINAL: Abdomen soft, non-tender, nondistended. EXTREMITIES: No cyanosis NEUROLOGICAL: awake and alert, normal speech. moving all extremities. Assessment/Plan Problem List: (1) Fever and neutropenia Status: Acute Plan: 01/01: no transfusion. continue abx. await improvement of WBC prior to d/c --BC no growth --on Vanco and Cefepime --on Lotrimin for suprapubic rash. -- infectious disease following --CXR clear --U/a clear (2) AML (acute myeloid leukemia) Status: Acute Plan: --currently in remission --just completed C1 consolidation therapy (3) Depression Status: Acute Plan: --on Zoloft --takes valium for anxiety (4) Anemia Status: Acute Plan: --transfuse for hgb<7.5mg/dL (5) Hypertension Status: Acute Plan: --on Atenolol (6) Thrombocytopenia Status: Acute Plan: --transfuse for platelet count less than 15K (7) Type 2 diabetes mellitus Status: Acute Plan: --on Metformin 850mg PO BID Assessment 46y/o male with relapsed AML, admitted for neutropenic fever. h/o diabetes, hypertension, depression Attending Statement doing well no fevers await BM recovery Janet Holm Jan 01, 2017 10:57 Alexandra Olea MD Jan 02, 2017 14:57
[2017-01-01 12:00] VITALS: BP 127/79; PULSE 75; RESP 16; TEMP 98; O2SAT 93
[2017-01-01 16:00] VITALS: BP 135/92; PULSE 77; RESP 18; TEMP 98.7; O2SAT 94
[2017-01-01 20:00] VITALS: BP 145/94; PULSE 82; RESP 18; TEMP 97.8; O2SAT 100
[2017-01-01] MEDS: ATENOLOL 100 MG TAB PO SCH (21:20)
[2017-01-01] MEDS: DIAZEPAM 10 MG TAB PO SCH (21:21)
[2017-01-02] VITALS: BP 143/88; PULSE 82; RESP 18; TEMP 96.9; O2SAT 95
[2017-01-02] MEDS: VANCOMYCIN INJ 2,000 MG in SODIUM CHLORID 0.9% 500 ML INJ 500 ML IV SCH ×2 (01:02→15:02)
[2017-01-02 04:00] VITALS: BP 142/83; PULSE 76; RESP 16; TEMP 97; O2SAT 98
[2017-01-02] MEDS: CEFEPIME INJ 2,000 MG in SODIUM CHLORIDE 0.9% INJ 100 ML IV SCH ×3 (04:32→20:13)
[2017-01-02 05:40] LABS: HEMATOCRIT 22.1 % (39.0-51.0); MEAN CELL VOLUME 78.6 FL (80.0-100.0); MEAN CORPUSCULAR HGB CONC 34.4 % (32.0-36.0); PLATELET COUNT 28 TH/MM3 (150-450); RED BLOOD COUNT 2.82 MIL/MM3 (4.50-5.90); RED CELL DISTRIBUTION WIDTH 13.5 % (11.6-17.2); WHITE BLOOD COUNT 1.1 TH/MM3 (4.0-11.0)
[2017-01-02 05:50] LABS: HEMO FLAGS AUTO DIFF
[2017-01-02 08:00] VITALS: BP 148/85; PULSE 81; RESP 18; TEMP 97.3; O2SAT 95
[2017-01-02 08:19] LABS: BANDS 11 % (0-6); BLASTS 1 % (0-0); CORRECTED NUCLEATED RBC 1 /100 WBC (0-0); METAMYELOCYTES 2 % (0-1); NEUTROPHIL # MANUAL DIFF 0.6 TH/MM3 (1.8-7.7); OVALOCYTES 1+ (NORMAL); PLATELET ESTIMATE SMEAR LOW (NORMAL); PLATELET MORPHOLOGY NORMAL (NORMAL); POLYS (SEG NEUTROPHILS) 40 % (16-70); SCAN/DIFF FINAL DIFF MANUAL; WBC DIFF SAMPLE 100
[2017-01-02] MEDS: CLOTRIMAZOLE 1% CREAM 15 GM TOPICAL SCH ×2 (09:00→20:14)
[2017-01-02] MEDS: PICC Daily Heparin 100 unit/mL Lock Flush IV FLUSH SCH (09:00)
[2017-01-02] MEDS: SERTRALINE HCL 50 MG TAB PO SCH (10:33)
[2017-01-02] MEDS: metFORMIN HCL 850 MG TAB PO SCH ×2 (10:33→20:13)
[2017-01-02] MEDS: LISINOPRIL 10 MG TAB PO SCH (10:33)
--- NOTE | 2017-01-02 10:49 | PD.ONC.PN ---
Subjective Subjective Remarks Afebrile overnight. Resting in bed Wants to go home. Just finished breakfast. No complaints. Objective Data Date Time Temp Pulse Resp B/P Pulse Ox O2 Delivery O2 Flow Rate FiO2 01/02/17 08:00 97.3 81 18 148/85 95 01/02/17 04:00 97.0 76 16 142/83 98 01/02/17 00:00 96.9 82 18 143/88 95 01/01/17 20:00 97.8 82 18 145/94 100 01/01/17 16:00 98.7 77 18 135/92 94 01/01/17 12:00 98.0 75 16 127/79 93 Result Diagram: 01/02/17 0430 01/01/17 0530 Laboratory Results Laboratory Tests Test 01/02/17 04:30 White Blood Count 1.1 TH/MM3 Red Blood Count 2.82 MIL/MM3 Hemoglobin 7.6 GM/DL Hematocrit 22.1 % Mean Corpuscular Volume 78.6 FL Mean Corpuscular Hemoglobin 27.0 PG Mean Corpuscular Hemoglobin 34.4 % Concent Red Cell Distribution Width 13.5 % Platelet Count 28 TH/MM3 Mean Platelet Volume 8.1 FL Neutrophils (%) (Auto) % Lymphocytes (%) (Auto) % Monocytes (%) (Auto) % Eosinophils (%) (Auto) % Basophils (%) (Auto) % Neutrophils # (Auto) TH/MM3 Lymphocytes # (Auto) TH/MM3 Monocytes # (Auto) TH/MM3 Eosinophils # (Auto) TH/MM3 Basophils # (Auto) TH/MM3 CBC Comment AUTO DIFF Differential Total Cells 100 Counted Neutrophils % (Manual) 40 % Band Neutrophils % 11 % Lymphocytes % 12 % Monocytes % 34 % Neutrophils # (Manual) 0.6 TH/MM3 Metamyelocytes 2 % Nucleated Red Blood Cells 1 /100 WBC Differential Comment FINAL DIFF MANUAL Blastocytes 1 % Platelet Estimate LOW Platelet Morphology Comment NORMAL Ovalocytes 1+ Administered Medications Medications (Trade) Dose Ordered Sig/Génesis Route PRN Reason Start Time Stop Time Status Last Admin Dose Admin Acetaminophen (Tylenol) 650 mg Q4H PRN PO P0-3T100.5ORPREMEDICATEFORBLOODPRODUCT 12/25/16 10:45 12/31/16 16:01 Atenolol (Tenormin) 100 mg HS PO 12/25/16 21:00 01/01/17 21:20 Sertraline HCl (Zoloft) 50 mg DAILY PO 12/26/16 09:00 01/02/17 10:33 Diazepam (Valium) 10 mg HS PO 12/25/16 21:00 01/01/17 21:21 Oxycodone HCl 5 mg 5 mg Q4H PRN PO PAIN SCALE 4 TO 10 12/25/16 16:00 01/01/17 21:21 Vancomycin HCl/ Sodium Chloride (Vancomycin Inj/ NS 500 ml Inj) 520 ml @ 250 mls/hr Q12H IV 12/26/16 01:00 01/02/17 01:02 Metformin HCl 850 mg 850 mg BID PO 12/25/16 21:00 01/02/17 10:33 Cefepime HCl/ Sodium Chloride (Maxipime Inj/NS Inj) 100 ml @ 200 mls/hr Q8H IV 12/26/16 05:00 01/02/17 04:32 Diazepam (Valium) 5 mg Q8HR PRN PO anxiety 12/26/16 11:15 12/29/16 14:25 Clotrimazole (Lotrimin 1% Cream) 1 applic Q12HR TOPICAL 12/29/16 10:00 01/01/17 09:08 Sodium Chloride (NS Flush) 5 ml UNSCH PRN IV FLUSH SEE PROTOCOL TABLE 12/29/16 23:45 12/30/16 04:25 Sodium Chloride (NS Flush) 5 ml UNSCH PRN IV FLUSH SEE PROTOCOL TABLE 12/29/16 23:45 12/30/16 04:26 Lisinopril (Prinivil) 10 mg DAILY PO 12/31/16 11:00 01/02/17 10:33 Objective Remarks GENERAL: Middle aged male, upright in bed in [facility]. SKIN: Warm and dry. PICC line right arm, site clean. HEAD: Normocephalic. EYES: No injection or drainage. NECK: Supple, trachea midline. CARDIOVASCULAR: Regular rate and rhythm RESPIRATORY: Breath sounds equal bilaterally. No accessory muscle use. GASTROINTESTINAL: Abdomen soft, non-tender, nondistended. EXTREMITIES: No cyanosis NEUROLOGICAL: aox3. normal speech. moving all extremities. Assessment/Plan Problem List: (1) Fever and neutropenia Status: Acute Plan: 01/02: continue abx. monitor WBC. clear for discharge when Neutrophil count is one or greater. will need to be transfused to hgb of 10 prior to discharge --BC no growth --on Vanco and Cefepime -- infectious disease following --CXR clear --U/A clear (2) AML (acute myeloid leukemia) Status: Acute Plan: --currently in remission --just completed C1 consolidation therapy (3) Depression Status: Acute Plan: --on Zoloft --takes valium for anxiety (4) Anemia Status: Acute Plan: --transfuse for hgb<7.5mg/dL (5) Hypertension Status: Acute Plan: --on Atenolol (6) Thrombocytopenia Status: Acute Plan: --transfuse for platelet count less than 15K (7) Type 2 diabetes mellitus Status: Acute Plan: --on Metformin 850mg PO BID Assessment 46y/o male with relapsed AML, admitted for neutropenic fever. h/o diabetes, hypertension, depression Attending Statement no fevers for last 3 days. c/o ZARATE feels better. WBS is coming up. D/C home when ANC >1,000 has fu appt on thursday. Janet Holm Jan 02, 2017 10:49 Alexandra Olea MD Jan 02, 2017 15:01
[2017-01-02 12:00] VITALS: BP 140/87; PULSE 77; RESP 18; TEMP 98.4; O2SAT 94
--- NOTE | 2017-01-02 12:56 | HHI.DCPOC ---
Discharge Care Plan Diagnosis: (1) AML (acute myeloid leukemia) (2) Type 2 diabetes mellitus (3) Fever and neutropenia (4) Hypertension Goals to Promote Your Health * To prevent worsening of your condition and complications * To maintain your health at the optimal level Directions to Meet Your Goals Take your medications as prescribed Follow your dietary instruction Follow activity as directed Keep your appointments as scheduled Take your immunizations and boosters as scheduled If your symptoms worsen call your PCP, if no PCP go to Urgent Care Center or Emergency Room Smoking is Dangerous to Your Health. Avoid second hand smoke Call the 24-hour hour crisis hotline for domestic abuse at Janet Holm Jan 02, 2017 12:56
--- NOTE | 2017-01-02 13:01 | HHI.DS ---
Discharge Summary Admission Date Dec 25, 2016 at 10:08 Admitting Diagnosis AML, neutropenic fever, pancytopenia (1) Type 2 diabetes mellitus Diagnosis: Principal (2) AML (acute myeloid leukemia) Diagnosis: Principal (3) Fever and neutropenia Diagnosis: Principal (4) Depression Diagnosis: Principal Brief History Mr. Cullen is a 47 year old with relapsed AML, currently in his second remission s/p C1 consolidation. He is being admitted for neutropenic fever. CBC/BMP: 01/02/17 0430 01/02/17 1030 Significant Findings Laboratory Tests Test 12/31/16 12/31/16 01/01/17 01/02/17 05:15 13:23 05:30 04:30 White Blood Count 0.6 TH/MM3 0.9 TH/MM3 1.1 TH/MM3 (4.0-11.0) (4.0-11.0) (4.0-11.0) Red Blood Count 2.71 MIL/MM3 2.93 MIL/MM3 2.82 MIL/MM3 (4.50-5.90) (4.50-5.90) (4.50-5.90) Hemoglobin 7.4 GM/DL 8.1 GM/DL 7.6 GM/DL (13.0-17.0) (13.0-17.0) (13.0-17.0) Hematocrit 20.9 % 22.7 % 22.1 % (39.0-51.0) (39.0-51.0) (39.0-51.0) Mean Corpuscular Volume 77.3 FL 77.4 FL 78.6 FL (80.0-100.0) (80.0-100.0) (80.0-100.0) Platelet Count 28 TH/MM3 31 TH/MM3 28 TH/MM3 (150-450) (150-450) (150-450) Band Neutrophils % 10 % (0-6) 8 % (0-6) 11 % (0-6) Monocytes % 45 % (0-8) 54 % (0-8) 34 % (0-8) Neutrophils # (Manual) 0.2 TH/MM3 0.3 TH/MM3 0.6 TH/MM3 (1.8-7.7) (1.8-7.7) (1.8-7.7) Toxic Granulation 1+ (NORMAL) Platelet Estimate LOW (NORMAL) LOW (NORMAL) LOW (NORMAL) Potassium Level 3.3 MEQ/L 3.4 MEQ/L (3.5-5.1) (3.5-5.1) Carbon Dioxide Level 33.1 MEQ/L 34.0 MEQ/L (21.0-32.0) (21.0-32.0) Creatinine 0.44 MG/DL 0.46 MG/DL (0.60-1.30) (0.60-1.30) Vancomycin Level Trough 18.7 MCG/ML (5.0-10.0) Metamyelocytes 4 % (0-1) 2 % (0-1) Anion Gap 4 MEQ/L (5-15) Nucleated Red Blood Cells 1 /100 WBC (0-0) Blastocytes 1 % (0-0) Ovalocytes 1+ (NORMAL) Imaging Last Impressions Chest X-Ray 12/25/16 0000 Signed Impressions: Service Date/Time: December 11:30 - CONCLUSION: PICC in good position. The lungs are clear. The exam is stable compared to previous dated 11/03/16. Avi Ceron MD PE at Discharge Please see physical exam from date of discharge. Hospital Course Mr. Cullen is a 47 year old male admitted with neutropenic fever after high- dose consolidation chemotherapy with MELL-C. He was admitted on 12/25/16 after noticing fever of 100.5 in morning. Blood cultures were obtained and IV antibiotics were initiated as well as laboratory and radiographic studies per protocol. Infectious disease was consulted. The patient was transfused irradiated pRBC as well and platelets during his admission. His home medications were resumed. He was discharged in stable condition with instructions for follow up. Pt Condition on Discharge: Good Discharge Disposition: Discharge Home Discharge Instructions DIET: Follow Instructions for: As Tolerated, No Restrictions Activities you can perform: Regular-No Restrictions Janet Holm Jan 02, 2017 13:01
[2017-01-02] MEDS ORDERED: LISI10TA3 PO (13:03)
--- NOTE | 2017-01-02 13:36 | HHI.IDPN ---
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 Recently he was diagnosed to be in relapse, and he was started on chemotherapy again. He last chemotherapy was about a few weeks ago, and patient was seen in follow- up and was found to be neutropenic as expected. He has been following his temperature, and on the day of admission his temperature went up to 100.5. Patient was advised to go to the hospital for further management. Patient denies any significant respiratory complaint. He's had some nausea but no vomiting. He denies any abdominal pain or any diarrhea. Denies any urinary complaint. He denies any sores in his mouth or any swallowing difficulty or odynophagia. He has not noted any skin rash. Patient has a PICC line in his right upper extremity where he gets his chemotherapy. Notes reviewed Temps ok WBC up to 1.1,but ANC still less than 1000 No new complaints All C/S negative Antibiotics Vancomycin Cefepime Lines PICC Past Medical History Acute myeloid leukemia. Hemochromatosis. ADHD. Hypercholesterolemia. Anxiety disorder. 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 Tonsillectomy. Undescended testis. Colonoscopy. Cardiac catheterization. Anal sphincterotomy. Allergies: Coded Allergies: Vancomycin (Verified Adverse Reaction, Severe, Diarrhea, 10/29/16) Per pt and his record review he uneventfully took IV vancomycin in December 2015. In october 16-2016 he developped severe diarrhea during vancomycin use, no rash per his account. Objective . Vital Signs Date Time Temp Pulse Resp B/P Pulse Ox O2 Delivery O2 Flow Rate FiO2 01/02/17 08:00 97.3 81 18 148/85 95 01/02/17 04:00 97.0 76 16 142/83 98 01/02/17 00:00 96.9 82 18 143/88 95 01/01/17 20:00 97.8 82 18 145/94 100 01/01/17 16:00 98.7 77 18 135/92 94 01/01/17 01/01/17 01/02/17 15:00 23:00 07:00 Intake Total 840 ml 858 ml Balance 840 ml 858 ml Intake Oral 840 ml 740 ml IV Total 118 ml # Voids 4 1 # Bowel Movements 0 . Laboratory Tests Test 01/01/17 01/02/17 05:30 04:30 White Blood Count 0.9 TH/MM3 1.1 TH/MM3 Red Blood Count 2.93 MIL/MM3 2.82 MIL/MM3 Hemoglobin 8.1 GM/DL 7.6 GM/DL Hematocrit 22.7 % 22.1 % Mean Corpuscular Volume 77.4 FL 78.6 FL Mean Corpuscular Hemoglobin 27.8 PG 27.0 PG Mean Corpuscular Hemoglobin 35.9 % 34.4 % Concent Red Cell Distribution Width 13.6 % 13.5 % Platelet Count 31 TH/MM3 28 TH/MM3 Mean Platelet Volume 8.8 FL 8.1 FL Neutrophils (%) (Auto) % % Lymphocytes (%) (Auto) % % Monocytes (%) (Auto) % % Eosinophils (%) (Auto) % % Basophils (%) (Auto) % % Neutrophils # (Auto) TH/MM3 TH/MM3 Lymphocytes # (Auto) TH/MM3 TH/MM3 Monocytes # (Auto) TH/MM3 TH/MM3 Eosinophils # (Auto) TH/MM3 TH/MM3 Basophils # (Auto) TH/MM3 TH/MM3 CBC Comment AUTO DIFF AUTO DIFF Differential Total Cells 50 100 Counted Neutrophils % (Manual) 22 % 40 % Band Neutrophils % 8 % 11 % Lymphocytes % 10 % 12 % Monocytes % 54 % 34 % Basophils % 2 % Neutrophils # (Manual) 0.3 TH/MM3 0.6 TH/MM3 Metamyelocytes 4 % 2 % Differential Comment FINAL DIFF FINAL DIFF MANUAL MANUAL Platelet Estimate LOW LOW Platelet Morphology Comment NORMAL NORMAL Nucleated Red Blood Cells 1 /100 WBC Blastocytes 1 % Ovalocytes 1+ Laboratory Tests Test 01/01/17 01/02/17 05:30 10:30 Sodium Level 144 MEQ/L Potassium Level 3.4 MEQ/L 3.5 MEQ/L Chloride Level 106 MEQ/L Carbon Dioxide Level 34.0 MEQ/L Anion Gap 4 MEQ/L Blood Urea Nitrogen 10 MG/DL Creatinine 0.46 MG/DL Estimat Glomerular Filtration 195 ML/MIN Rate Random Glucose 99 MG/DL Calcium Level 8.7 MG/DL Imaging Chest X-Ray 12/25/16 0000 Signed Impressions: Service Date/Time: December 11:30 - CONCLUSION: PICC in good position. The lungs are clear. The exam is stable compared to previous dated 11/03/16. Avi Ceron MD Physical Exam GENERAL: awake and alert, not in respiratory distress. Has alopecia SKIN: Warm and dry. No generalized rash, no ecchymoses and no evidence of embolic lesions. HEAD: Atraumatic. Normocephalic. No temporal wasting, or tenderness. EYES: [place] conjunctiva. No petechia or hemorrhage. Pupils equal, round and reactive to light. No scleral icterus. No injection or drainage. EARS, NOSE AND THROAT: Nose without nasal discharge. No sinus tenderness. Mucous membranes pink and moist. No oral lesions noted. No exudate. No oral thrush. NECK: Supple and not tender, no meningeal signs CARDIOVASCULAR: Regular rate and rhythm. No murmurs, rubs or gallops heard RESPIRATORY: Clear to auscultation. Breath sounds equal bilaterally. No rales , wheezing or rhonchi ABDOMEN: Soft, non-tender, nondistended. Bowel sounds present and normoactive. No guarding. No rebound. No organomegaly. Has some red rash in suprapubic area with petechia EXTREMITIES: No clubbing, cyanosis, or edema. No calf tenderness. Well perfused and warm. NEUROLOGICAL: Awake and alert. Cranial nerves grossly intact. Motor grossly within normal limits. PSYCHIATRIC: Normal affect, calm and cooperative. LINE: PICC RUE with no evidence of infection Assessment & Plan Remarks IMPRESSION Neutropenic fever, non-localizing - temps has been down - BC negative - ANC still less than 1000 Acute myeloid leukemia, in relapse, getting chemo Previous RX for Fusobacterium and Clostridium sepsis Headache, better RECOMMENDATION Continue cefepime and Vanco - empiric for fever and neutropenia If no fever and WBC up, stop all Abx Possibly D/C home this weekend once counts ANC 1000 Lotrimin to rash on abdomen Clinically doing well from ID standpoint D/W Bebeto ALEMAN I will be available prn Please call if with any other ID issue or question Heather Bhatt MD Jan 02, 2017 13:36
[2017-01-02 16:00] VITALS: BP 143/84; PULSE 89; RESP 18; TEMP 97.8; O2SAT 94
[2017-01-02 20:00] VITALS: BP 155/97; PULSE 91; RESP 18; TEMP 96.2; O2SAT 97
[2017-01-02] MEDS: ATENOLOL 100 MG TAB PO SCH (20:13)
[2017-01-02] MEDS: DIAZEPAM 10 MG TAB PO SCH (21:25)
[2017-01-03] VITALS (9 sets, daily range): BP systolic 127–166; BP diastolic 77–99; PULSE 75–92; RESP 16–18; TEMP 96.3–98.2; O2SAT 95–99
[2017-01-03] MEDS: VANCOMYCIN INJ 2,000 MG in SODIUM CHLORID 0.9% 500 ML INJ 500 ML IV SCH ×3 (01:11→23:38)
[2017-01-03] MEDS: CEFEPIME INJ 2,000 MG in SODIUM CHLORIDE 0.9% INJ 100 ML IV SCH ×3 (05:33→19:36)
[2017-01-03] MEDS: PICC Daily Heparin 100 unit/mL Lock Flush IV FLUSH SCH (06:19)
[2017-01-03 07:26] LABS: AUTOMATED NEUTROPHIL # 0.4 TH/MM3 (1.8-7.7); BASOPHIL % 0.2 % (0.0-2.0); HEMATOCRIT 22.2 % (39.0-51.0); LYMPH % 17.2 % (9.0-44.0); LYMPHOCYTE # 0.2 TH/MM3 (1.0-4.8); MEAN CELL VOLUME 78.7 FL (80.0-100.0); MEAN CORPUSCULAR HEMOGLOBIN 26.8 PG (27.0-34.0); MEAN CORPUSCULAR HGB CONC 34.1 % (32.0-36.0); MONO % 44.3 % (0.0-8.0); NEUT % 38.3 % (16.0-70.0); PLATELET COUNT 30 TH/MM3 (150-450); RED BLOOD COUNT 2.82 MIL/MM3 (4.50-5.90); RED CELL DISTRIBUTION WIDTH 13.5 % (11.6-17.2); WHITE BLOOD COUNT 1.2 TH/MM3 (4.0-11.0)
[2017-01-03] MEDS ORDERED: POTASSIUM CHLORIDE 20 MEQ CONTROLLED RELEASE TAB PO ONE (08:00)
[2017-01-03 08:04] LABS: HEMO FLAGS AUTO DIFF
[2017-01-03] MEDS: CLOTRIMAZOLE 1% CREAM 15 GM TOPICAL SCH ×2 (09:00→19:38)
[2017-01-03] MEDS: metFORMIN HCL 850 MG TAB PO SCH ×2 (09:40→19:38)
--- NOTE | 2017-01-03 09:40 | PD.ONC.PN ---
Subjective Subjective Remarks Afebrile overnight Didn't sleep well Wants to go home Objective Data Date Time Temp Pulse Resp B/P Pulse Ox O2 Delivery O2 Flow Rate FiO2 01/03/17 05:26 96.8 80 18 134/77 97 01/03/17 01:15 82 18 127/83 97 01/02/17 20:00 96.2 91 18 155/97 97 01/02/17 16:00 97.8 89 18 143/84 94 01/02/17 12:00 98.4 77 18 140/87 94 01/03/17 01/03/17 01/03/17 07:00 15:00 23:00 Intake Total 650 ml Balance 650 ml Result Diagram: 01/03/17 0530 01/03/17 0530 Laboratory Results Laboratory Tests Test 01/02/17 01/03/17 10:30 05:30 Potassium Level 3.5 MEQ/L 3.2 MEQ/L White Blood Count 1.2 TH/MM3 Red Blood Count 2.82 MIL/MM3 Hemoglobin 7.5 GM/DL Hematocrit 22.2 % Mean Corpuscular Volume 78.7 FL Mean Corpuscular Hemoglobin 26.8 PG Mean Corpuscular Hemoglobin 34.1 % Concent Red Cell Distribution Width 13.5 % Platelet Count 30 TH/MM3 Mean Platelet Volume 8.2 FL Neutrophils (%) (Auto) 38.3 % Lymphocytes (%) (Auto) 17.2 % Monocytes (%) (Auto) 44.3 % Eosinophils (%) (Auto) 0.0 % Basophils (%) (Auto) 0.2 % Neutrophils # (Auto) 0.4 TH/MM3 Lymphocytes # (Auto) 0.2 TH/MM3 Monocytes # (Auto) 0.5 TH/MM3 Eosinophils # (Auto) 0.0 TH/MM3 Basophils # (Auto) 0.0 TH/MM3 CBC Comment AUTO DIFF Administered Medications Medications (Trade) Dose Ordered Sig/Génesis Route PRN Reason Start Time Stop Time Status Last Admin Dose Admin Acetaminophen (Tylenol) 650 mg Q4H PRN PO P0-3T100.5ORPREMEDICATEFORBLOODPRODUCT 12/25/16 10:45 12/31/16 16:01 Atenolol (Tenormin) 100 mg HS PO 12/25/16 21:00 01/02/17 20:13 Sertraline HCl (Zoloft) 50 mg DAILY PO 12/26/16 09:00 01/02/17 10:33 Diazepam (Valium) 10 mg HS PO 12/25/16 21:00 01/02/17 21:25 Oxycodone HCl 5 mg 5 mg Q4H PRN PO PAIN SCALE 4 TO 10 12/25/16 16:00 01/02/17 21:25 Vancomycin HCl/ Sodium Chloride (Vancomycin Inj/ NS 500 ml Inj) 520 ml @ 250 mls/hr Q12H IV 12/26/16 01:00 01/03/17 01:11 Metformin HCl 850 mg 850 mg BID PO 12/25/16 21:00 01/02/17 20:13 Cefepime HCl/ Sodium Chloride (Maxipime Inj/NS Inj) 100 ml @ 200 mls/hr Q8H IV 12/26/16 05:00 01/03/17 05:33 Diazepam (Valium) 5 mg Q8HR PRN PO anxiety 12/26/16 11:15 12/29/16 14:25 Clotrimazole (Lotrimin 1% Cream) 1 applic Q12HR TOPICAL 12/29/16 10:00 01/01/17 09:08 Heparin Sodium (Porcine) (Heparin Central Flush) 200 units DAILY IV FLUSH 12/30/16 09:00 01/03/17 06:19 Sodium Chloride (NS Flush) 5 ml UNSCH PRN IV FLUSH SEE PROTOCOL TABLE 12/29/16 23:45 12/30/16 04:25 Sodium Chloride (NS Flush) 5 ml UNSCH PRN IV FLUSH SEE PROTOCOL TABLE 12/29/16 23:45 12/30/16 04:26 Lisinopril (Prinivil) 10 mg DAILY PO 12/31/16 11:00 01/02/17 10:33 Objective Remarks GENERAL: Middle-aged male asleep on approach. Awakens easily to verbal stimuli. SKIN: Warm and dry. PICC line site clean. HEAD: Normocephalic. EYES: No scleral icterus. No injection or drainage. NECK: Supple, trachea midline. CARDIOVASCULAR: +S1/S2. RESPIRATORY: Breath sounds equal bilaterally. No accessory muscle use. GASTROINTESTINAL: Abdomen soft, non-tender, nondistended. EXTREMITIES: No cyanosis. No edema NEUROLOGICAL: AOx3. normal speech. moving all extremities. Assessment/Plan Problem List: (1) Fever and neutropenia Status: Acute Plan: 01/02: Will give PRBC transfusion today. Monitor ANC. Clear for discharge when greater than 1000. Continue Abx for now. --BC no growth --on Vanco and Cefepime -- infectious disease following --CXR clear --U/A clear (2) AML (acute myeloid leukemia) Status: Acute Plan: --currently in remission --just completed C1 consolidation therapy (3) Depression Status: Acute Plan: --on Zoloft --takes valium for anxiety (4) Anemia Status: Acute Plan: --transfuse for hgb<7.5mg/dL (5) Hypertension Status: Acute Plan: --on Atenolol (6) Thrombocytopenia Status: Acute Plan: --transfuse for platelet count less than 15K (7) Type 2 diabetes mellitus Status: Acute Plan: --on Metformin 850mg PO BID Assessment 46y/o male with relapsed AML, admitted for neutropenic fever. h/o diabetes, hypertension, depression Plan The exam, history, and the medical decision-making described in the above note were completed with the assistance of the mid-level provider. I reviewed and agree with the findings presented. I attest that I had a [id number] encounter with the patient on the same day, and personally performed and documented my assessment and findings in the medical record. No CP/SOB. Afebrile. WBC and platelet are stable. Still neutropenic. Hgb trended lower and will transfuse 1 U. Valarie Lopez Jan 03, 2017 09:40 Lamine Zelaya MD Jan 03, 2017 11:26
[2017-01-03] MEDS: LISINOPRIL 10 MG TAB PO SCH (09:41)
[2017-01-03] MEDS: SERTRALINE HCL 50 MG TAB PO SCH (09:41)
[2017-01-03] MEDS ORDERED: ACETAMINOPHEN 325 MG TAB PO PRN ×2 (09:45→19:45)
[2017-01-03] MEDS ORDERED: SODIUM CHLOR 0.9% 250 ML INJ 250 ML IV ONE (09:45)
[2017-01-03 11:11] LABS: BANDS 6 % (0-6); CORRECTED NUCLEATED RBC 4 /100 WBC (0-0); METAMYELOCYTES 2 % (0-1); MYELOCYTES 1 % (0-0); NEUTROPHIL # MANUAL DIFF 0.5 TH/MM3 (1.8-7.7); POLYS (SEG NEUTROPHILS) 33 % (16-70); WBC DIFF SAMPLE 100
[2017-01-03 11:12] LABS: PLATELET ESTIMATE SMEAR LOW (NORMAL); PLATELET MORPHOLOGY NORMAL (NORMAL); SCAN/DIFF FINAL DIFF MANUAL
[2017-01-03 11:13] LABS: OVALOCYTES 1+ (NORMAL)
[2017-01-03] MEDS ORDERED: ALTEPLASE RECOMBINANT 2 MG VIAL INTRACATH ONE (13:15)
[2017-01-03] MEDS: ATENOLOL 100 MG TAB PO SCH (19:38)
[2017-01-03] MEDS ORDERED: diphenhydrAMINE HCL 25 MG CAP PO PRN (19:45)
[2017-01-03] MEDS: ACETAMINOPHEN 325 MG TAB PO PRN (20:22)
[2017-01-03] MEDS: DIAZEPAM 10 MG TAB PO SCH (23:38)
[2017-01-04] VITALS: BP 151/95; PULSE 80; RESP 18; TEMP 98.1; O2SAT 98
[2017-01-04 04:00] VITALS: BP 126/87; PULSE 84; RESP 18; TEMP 96.3; O2SAT 96
[2017-01-04] MEDS: CEFEPIME INJ 2,000 MG in SODIUM CHLORIDE 0.9% INJ 100 ML IV SCH ×2 (04:15→12:07)
[2017-01-04 06:07] LABS: AUTOMATED NEUTROPHIL # 0.7 TH/MM3 (1.8-7.7); BASOPHIL % 0.1 % (0.0-2.0); HEMATOCRIT 25.5 % (39.0-51.0); LYMPH % 13.9 % (9.0-44.0); LYMPHOCYTE # 0.2 TH/MM3 (1.0-4.8); MEAN CELL VOLUME 78.3 FL (80.0-100.0); MEAN CORPUSCULAR HEMOGLOBIN 27.8 PG (27.0-34.0); MEAN CORPUSCULAR HGB CONC 35.5 % (32.0-36.0); MONO % 38.8 % (0.0-8.0); NEUT % 47.2 % (16.0-70.0); PLATELET COUNT 39 TH/MM3 (150-450); RED BLOOD COUNT 3.25 MIL/MM3 (4.50-5.90); RED CELL DISTRIBUTION WIDTH 13.3 % (11.6-17.2); WHITE BLOOD COUNT 1.5 TH/MM3 (4.0-11.0)
[2017-01-04 06:20] LABS: HEMO FLAGS AUTO DIFF
[2017-01-04] MEDS ORDERED: POTASSIUM CHLORIDE 20 MEQ CONTROLLED RELEASE TAB PO ONE (08:00)
[2017-01-04] MEDS: PICC Daily Heparin 100 unit/mL Lock Flush IV FLUSH SCH (09:00)
[2017-01-04] MEDS: CLOTRIMAZOLE 1% CREAM 15 GM TOPICAL SCH ×2 (09:00→21:00)
[2017-01-04] MEDS: SERTRALINE HCL 50 MG TAB PO SCH (09:54)
[2017-01-04] MEDS: metFORMIN HCL 850 MG TAB PO SCH ×2 (09:54→21:10)
[2017-01-04] MEDS: LISINOPRIL 10 MG TAB PO SCH (09:54)
[2017-01-04 09:59] VITALS: BP 137/87; PULSE 82; RESP 16; TEMP 96.6; O2SAT 96
[2017-01-04 10:21] LABS: BANDS 2 % (0-6); BLASTS 2 % (0-0); CORRECTED NUCLEATED RBC 1 /100 WBC (0-0); NEUTROPHIL # MANUAL DIFF 0.9 TH/MM3 (1.8-7.7); PLATELET ESTIMATE SMEAR LOW (NORMAL); PLATELET MORPHOLOGY NORMAL (NORMAL); POLYS (SEG NEUTROPHILS) 55 % (16-70); SCAN/DIFF FINAL DIFF MANUAL; WBC DIFF SAMPLE 100
--- NOTE | 2017-01-04 11:42 | PD.ONC.PN ---
Subjective Subjective Remarks Afebrile overnight Wants to go home Asking to have IV antibiotics stopped Objective Data Date Time Temp Pulse Resp B/P Pulse Ox O2 Delivery O2 Flow Rate FiO2 01/04/17 09:59 96.6 82 16 137/87 96 01/04/17 04:00 96.3 84 18 126/87 96 01/04/17 00:00 98.1 80 18 151/95 98 01/03/17 23:40 97.6 87 17 147/99 96 01/03/17 21:55 96.6 76 16 166/99 99 01/03/17 21:32 96.4 90 17 154/97 99 01/03/17 20:00 97.1 75 18 154/93 99 01/03/17 16:52 96.3 92 16 131/87 95 01/03/17 12:00 98.2 79 16 131/82 97 01/04/17 01/04/17 01/04/17 07:00 15:00 23:00 Intake Total 1500 ml Balance 1500 ml Result Diagram: 01/04/17 0410 01/04/17 0410 Laboratory Results Laboratory Tests Test 01/04/17 04:10 White Blood Count 1.5 TH/MM3 Red Blood Count 3.25 MIL/MM3 Hemoglobin 9.0 GM/DL Hematocrit 25.5 % Mean Corpuscular Volume 78.3 FL Mean Corpuscular Hemoglobin 27.8 PG Mean Corpuscular Hemoglobin 35.5 % Concent Red Cell Distribution Width 13.3 % Platelet Count 39 TH/MM3 Mean Platelet Volume 8.8 FL Neutrophils (%) (Auto) 47.2 % Lymphocytes (%) (Auto) 13.9 % Monocytes (%) (Auto) 38.8 % Eosinophils (%) (Auto) 0.0 % Basophils (%) (Auto) 0.1 % Neutrophils # (Auto) 0.7 TH/MM3 Lymphocytes # (Auto) 0.2 TH/MM3 Monocytes # (Auto) 0.6 TH/MM3 Eosinophils # (Auto) 0.0 TH/MM3 Basophils # (Auto) 0.0 TH/MM3 CBC Comment AUTO DIFF Differential Total Cells 100 Counted Neutrophils % (Manual) 55 % Band Neutrophils % 2 % Lymphocytes % 18 % Monocytes % 23 % Neutrophils # (Manual) 0.9 TH/MM3 Nucleated Red Blood Cells 1 /100 WBC Differential Comment FINAL DIFF MANUAL Blastocytes 2 % Platelet Estimate LOW Platelet Morphology Comment NORMAL Potassium Level 3.4 MEQ/L Administered Medications Medications (Trade) Dose Ordered Sig/Génesis Route PRN Reason Start Time Stop Time Status Last Admin Dose Admin Acetaminophen (Tylenol) 650 mg Q4H PRN PO P0-3T100.5ORPREMEDICATEFORBLOODPRODUCT 12/25/16 10:45 01/03/17 20:22 Atenolol (Tenormin) 100 mg HS PO 12/25/16 21:00 01/03/17 19:38 Sertraline HCl (Zoloft) 50 mg DAILY PO 12/26/16 09:00 01/04/17 09:54 Diazepam (Valium) 10 mg HS PO 12/25/16 21:00 01/03/17 23:38 Oxycodone HCl 5 mg 5 mg Q4H PRN PO PAIN SCALE 4 TO 10 12/25/16 16:00 01/03/17 20:23 Vancomycin HCl/ Sodium Chloride (Vancomycin Inj/ NS 500 ml Inj) 520 ml @ 250 mls/hr Q12H IV 12/26/16 01:00 01/03/17 23:38 Metformin HCl 850 mg 850 mg BID PO 12/25/16 21:00 01/04/17 09:54 Cefepime HCl/ Sodium Chloride (Maxipime Inj/NS Inj) 100 ml @ 200 mls/hr Q8H IV 12/26/16 05:00 01/04/17 04:15 Diazepam (Valium) 5 mg Q8HR PRN PO anxiety 12/26/16 11:15 12/29/16 14:25 Clotrimazole (Lotrimin 1% Cream) 1 applic Q12HR TOPICAL 12/29/16 10:00 01/01/17 09:08 Heparin Sodium (Porcine) (Heparin Central Flush) 200 units DAILY IV FLUSH 12/30/16 09:00 01/03/17 06:19 Sodium Chloride (NS Flush) 5 ml UNSCH PRN IV FLUSH SEE PROTOCOL TABLE 12/29/16 23:45 12/30/16 04:25 Sodium Chloride (NS Flush) 5 ml UNSCH PRN IV FLUSH SEE PROTOCOL TABLE 12/29/16 23:45 12/30/16 04:26 Lisinopril (Prinivil) 10 mg DAILY PO 12/31/16 11:00 01/04/17 09:54 Objective Remarks GENERAL: Middle-aged male asleep on approach. Awakens easily to verbal stimuli. SKIN: Warm and dry. PICC line site clean. HEAD: Normocephalic. EYES: No scleral icterus. No injection or drainage. NECK: Supple, trachea midline. CARDIOVASCULAR: +S1/S2. RESPIRATORY: Breath sounds equal bilaterally. No accessory muscle use. GASTROINTESTINAL: Abdomen soft, non-tender, nondistended. EXTREMITIES: No cyanosis. No edema NEUROLOGICAL: AOx3. normal speech. moving all extremities. Assessment/Plan Problem List: (1) Fever and neutropenia Status: Acute Plan: --BC no growth --on Vanco and Cefepime -- infectious disease following --CXR clear --U/A clear (2) AML (acute myeloid leukemia) Status: Acute Plan: --currently in remission --just completed C1 consolidation therapy (3) Depression Status: Acute Plan: --on Zoloft --takes valium for anxiety (4) Anemia Status: Acute Plan: --transfuse for hgb<7.5mg/dL (5) Hypertension Status: Acute Plan: --on Atenolol (6) Thrombocytopenia Status: Acute Plan: --transfuse for platelet count less than 15K (7) Type 2 diabetes mellitus Status: Acute Plan: --on Metformin 850mg PO BID Assessment 46y/o male with relapsed AML, admitted for neutropenic fever. h/o diabetes, hypertension, depression Plan 1. ANC 900 today 2. We'll keep 1 more day and transfuse tomorrow for hemoglobin to [address] Laurent; OK to stop IV Abx and start po Levaquin. Attending Statement The exam, history, and the medical decision-making described in the above note were completed with the assistance of the mid-level provider. I reviewed and agree with the findings presented. I attest that I had a [id number] encounter with the patient on the same day, and personally performed and documented my assessment and findings in the medical record. Feeling better. Blood counts trending up. Still neutropenic but afebrile. WIll discuss with ID about deescalating abx. Anticipate d/c tomorrow if counts continue to improve. Valarie Lopez Jan 04, 2017 11:42 Lamine Zelaya MD Jan 04, 2017 11:48
[2017-01-04] MEDS: DIAZEPAM 5 MG TAB PO PRN (12:09)
[2017-01-04] MEDS ORDERED: PHARMACY ORDERED LAB ONE (12:45)
[2017-01-04] MEDS ORDERED: LEVOFLOXACIN 750 MG TAB PO SCH (13:00)
[2017-01-04 13:51] VITALS: BP 159/94; PULSE 84; RESP 16; TEMP 97.7; O2SAT 100
[2017-01-04] MEDS ORDERED: DIAZEPAM 5 MG TAB PO ONE (14:15)
[2017-01-04 16:00] VITALS: BP 131/81; PULSE 80; RESP 16; TEMP 98.3; O2SAT 100
[2017-01-04 20:00] VITALS: BP 151/97; PULSE 83; RESP 18; TEMP 97.6; O2SAT 98
[2017-01-04] MEDS: ATENOLOL 100 MG TAB PO SCH (21:10)
[2017-01-04] MEDS: DIAZEPAM 10 MG TAB PO SCH (23:58)
[2017-01-05] VITALS (10 sets, daily range): BP systolic 116–154; BP diastolic 72–92; PULSE 76–92; RESP 16–18; TEMP 95.7–97.4; O2SAT 96–100
[2017-01-05 06:43] LABS: BASOPHIL % 0.2 % (0.0-2.0); HEMATOCRIT 24.5 % (39.0-51.0); LYMPH % 13.3 % (9.0-44.0); LYMPHOCYTE # 0.3 TH/MM3 (1.0-4.8); MEAN CELL VOLUME 79.1 FL (80.0-100.0); MEAN CORPUSCULAR HGB CONC 34.2 % (32.0-36.0); MONO % 35.7 % (0.0-8.0); NEUT % 50.8 % (16.0-70.0); PLATELET COUNT 41 TH/MM3 (150-450); RED CELL DISTRIBUTION WIDTH 13.5 % (11.6-17.2); WHITE BLOOD COUNT 1.9 TH/MM3 (4.0-11.0)
[2017-01-05 06:58] LABS: HEMO FLAGS AUTO DIFF
[2017-01-05 07:55] LABS: BANDS 3 % (0-6); CORRECTED NUCLEATED RBC 1 /100 WBC (0-0); NEUTROPHIL # MANUAL DIFF 1.3 TH/MM3 (1.8-7.7); OVALOCYTES 1+ (NORMAL); PLATELET ESTIMATE SMEAR LOW (NORMAL); PLATELET MORPHOLOGY NORMAL (NORMAL); POLYS (SEG NEUTROPHILS) 63 % (16-70); SCAN/DIFF FINAL DIFF MANUAL; WBC DIFF SAMPLE 100
[2017-01-05] MEDS ORDERED: ACETAMINOPHEN 325 MG TAB PO PRN (08:00)
[2017-01-05] MEDS ORDERED: SODIUM CHLOR 0.9% 250 ML INJ 250 ML IV ONE (08:00)
[2017-01-05] MEDS ORDERED: diphenhydrAMINE HCL 25 MG CAP PO PRN (08:00)
[2017-01-05] MEDS ORDERED: POTASSIUM CHLORIDE 10 MEQ CAP PO ONE (08:30)
[2017-01-05] MEDS: PICC Daily Heparin 100 unit/mL Lock Flush IV FLUSH SCH (09:00)
[2017-01-05] MEDS: ACETAMINOPHEN 325 MG TAB PO PRN (09:29)
[2017-01-05] MEDS: LISINOPRIL 10 MG TAB PO SCH (09:29)
[2017-01-05] MEDS: SERTRALINE HCL 50 MG TAB PO SCH (09:29)
[2017-01-05] MEDS: metFORMIN HCL 850 MG TAB PO SCH (09:29)
--- NOTE | 2017-01-05 11:06 | PD.ONC.PN ---
Subjective Subjective Remarks Afebrile overnight. Patient resting in bed in nad. Eager to go home. No complaints. Objective Data Date Time Temp Pulse Resp B/P Pulse Ox O2 Delivery O2 Flow Rate FiO2 01/05/17 10:56 96.2 84 16 154/92 100 01/05/17 10:15 96.0 92 16 127/83 98 01/05/17 09:00 95.7 92 16 127/83 98 01/05/17 05:20 96.3 83 18 119/72 100 01/05/17 00:00 97.4 80 18 139/89 97 01/04/17 20:00 97.6 83 18 151/97 98 01/04/17 16:00 98.3 80 16 131/81 100 01/04/17 13:51 97.7 84 16 159/94 100 01/05/17 01/05/17 01/05/17 07:00 15:00 23:00 Intake Total 1500 ml Balance 1500 ml Result Diagram: 01/05/17 0535 01/05/17 0535 Laboratory Results Laboratory Tests Test 01/05/17 01/05/17 05:35 07:58 White Blood Count 1.9 TH/MM3 Red Blood Count 3.10 MIL/MM3 Hemoglobin 8.4 GM/DL Hematocrit 24.5 % Mean Corpuscular Volume 79.1 FL Mean Corpuscular Hemoglobin 27.0 PG Mean Corpuscular Hemoglobin 34.2 % Concent Red Cell Distribution Width 13.5 % Platelet Count 41 TH/MM3 Mean Platelet Volume 8.7 FL Neutrophils (%) (Auto) 50.8 % Lymphocytes (%) (Auto) 13.3 % Monocytes (%) (Auto) 35.7 % Eosinophils (%) (Auto) 0.0 % Basophils (%) (Auto) 0.2 % Neutrophils # (Auto) 1.0 TH/MM3 Lymphocytes # (Auto) 0.3 TH/MM3 Monocytes # (Auto) 0.7 TH/MM3 Eosinophils # (Auto) 0.0 TH/MM3 Basophils # (Auto) 0.0 TH/MM3 CBC Comment AUTO DIFF Differential Total Cells 100 Counted Neutrophils % (Manual) 63 % Band Neutrophils % 3 % Lymphocytes % 16 % Monocytes % 18 % Neutrophils # (Manual) 1.3 TH/MM3 Nucleated Red Blood Cells 1 /100 WBC Differential Comment FINAL DIFF MANUAL Platelet Estimate LOW Platelet Morphology Comment NORMAL Ovalocytes 1+ Potassium Level 3.4 MEQ/L Blood Type O POSITIVE Crossmatch Irradiated/Leukocyte-Reduced RBC Blood Bank Comment Administered Medications Medications (Trade) Dose Ordered Sig/Génesis Route PRN Reason Start Time Stop Time Status Last Admin Dose Admin Acetaminophen (Tylenol) 650 mg Q4H PRN PO P0-3T100.5ORPREMEDICATEFORBLOODPRODUCT 12/25/16 10:45 01/05/17 09:29 Atenolol (Tenormin) 100 mg HS PO 12/25/16 21:00 01/04/17 21:10 Sertraline HCl (Zoloft) 50 mg DAILY PO 12/26/16 09:00 01/05/17 09:29 Diazepam (Valium) 10 mg HS PO 12/25/16 21:00 01/04/17 23:58 Oxycodone HCl (Roxicodone) 5 mg Q4H PRN PO PAIN SCALE 4 TO 10 12/25/16 16:00 01/04/17 21:12 Metformin HCl (Glucophage) 850 mg BID PO 12/25/16 21:00 01/05/17 09:29 Diazepam (Valium) 5 mg Q8HR PRN PO anxiety 12/26/16 11:15 01/04/17 12:09 Heparin Sodium (Porcine) (Heparin Central Flush) 200 units DAILY IV FLUSH 12/30/16 09:00 01/03/17 06:19 Sodium Chloride (NS Flush) 5 ml UNSCH PRN IV FLUSH SEE PROTOCOL TABLE 12/29/16 23:45 12/30/16 04:25 Sodium Chloride (NS Flush) 5 ml UNSCH PRN IV FLUSH SEE PROTOCOL TABLE 12/29/16 23:45 12/30/16 04:26 Lisinopril 10 mg 10 mg DAILY PO 12/31/16 11:00 01/05/17 09:29 Sodium Chloride (NS 250 ml Inj) 250 ml @ 15 mls/hr ONCE ONCE IV 01/05/17 08:00 01/06/17 00:39 01/05/17 10:23 Objective Remarks GENERAL: Middle aged male, upright in bed in nad. SKIN: Warm and dry. PICC line right arm. HEAD: Normocephalic. EYES: No injection or drainage. NECK: Supple, trachea midline. CARDIOVASCULAR: Regular rate and rhythm RESPIRATORY: Breath sounds equal bilaterally. No accessory muscle use. GASTROINTESTINAL: Abdomen soft, non-tender, nondistended. EXTREMITIES: No cyanosis NEUROLOGICAL: awake and alert, normal speech. Assessment/Plan Problem List: (1) Fever and neutropenia Status: Resolved Plan: --BC no growth --infectious disease following --CXR clear --U/A clear (2) AML (acute myeloid leukemia) Status: Acute Plan: 01/05: d/c today --currently in remission --just completed C1 consolidation therapy (3) Depression Status: Acute Plan: --on Zoloft --takes valium for anxiety (4) Anemia Status: Acute Plan: --transfuse for hgb<7.5mg/dL (5) Hypertension Status: Acute Plan: --on Atenolol (6) Thrombocytopenia Status: Acute Plan: --transfuse for platelet count less than 15K (7) Type 2 diabetes mellitus Status: Acute Plan: --on Metformin 850mg PO BID Assessment 46y/o male with relapsed AML, admitted for neutropenic fever. h/o diabetes, hypertension, depression Attending Statement feels better No c/o offer PRBC today ANC >1000, ok to d/c home Janet Holm Jan 05, 2017 11:06 Alexandra Olea MD Jan 05, 2017 21:45
== END 2017-01-05 15:11 | disposition home or self-care (01) | DRG 809 ==
LOC: HOCA 10:08
PROVIDERS: ADMIT Internal Medicine Hematology & Oncology; ATTEND Internal Medicine Hematology & Oncology
PROC: 30243R1 Transfusion of Nonautologous Platelets into Central Vein, Percutaneous Approach (ICD-10-PCS; principal; 2016-12-27)
PROC: 30243N1 Transfusion of Nonautologous Red Blood Cells into Central Vein, Percutaneous Approach (ICD-10-PCS; 2016-12-27)
DX: D70.9 Neutropenia, unspecified (principal); C92.02 Acute myeloblastic leukemia, in relapse; I10 Essential (primary) hypertension; R50.81 Fever presenting with conditions classified elsewhere; F90.9 Attention-deficit hyperactivity disorder, unspecified type; E78.00 Pure hypercholesterolemia, unspecified; F41.9 Anxiety disorder, unspecified; Q53.10 Unspecified undescended testicle, unilateral; E11.9 Type 2 diabetes mellitus without complications; F32.9 Major depressive disorder, single episode, unspecified; R51 Headache; R21 Rash and other nonspecific skin eruption; Z79.84 Long term (current) use of oral hypoglycemic drugs; E83.119 Hemochromatosis, unspecified
CPT/HCPCS: 36430; 71020; 80048; 80053; 80202; 81001; 82948; 84132; 85007; 85027; 86644; 86850; 86900; 86901; 86920; 87040; 87086; 87804; J0692; J1642; J1815; J2997; J3370; J7030; J7040; J7050; P9037; P9040

== ENCOUNTER 2017-10-04 19:53 | Inpatient (IN) | payer BC ==
[~2017-10-04] VITALS: Ht 180.3 cm; Wt 98.0 kg
[~2017-10-04 19:53] MED LIST changes: -EXJA500T PO; +LISI10TA3 PO; -NOVOLOGP2 SQ; -POTA-163 PO; -[UNRECOGNIZED DRUG - REMARK] PO
[2017-10-04] MEDS ORDERED: IOHEXOL 350 MG/ML 10 ML VIAL (for RAD DIAG) IVCONTRAST ONE (19:54)
[2017-10-04 19:59] VITALS: BP 114/67; PULSE 107; RESP 18; TEMP 98.5; O2SAT 96
[2017-10-04 20:18] VITALS: BP 115/77; PULSE 100; RESP 33; O2SAT 96
[2017-10-04] MEDS ORDERED: SODIUM CHLOR 0.9% 1000 ML INJ 1,000 ML IV ONE (20:30)
[2017-10-04] MEDS ORDERED: OXYC-395 PO (20:32)
[2017-10-04] MEDS ORDERED: SIRO1TAB4 PO (20:32)
[2017-10-04] MEDS ORDERED: NOVOLOGSS SQ (20:32)
[2017-10-04] MEDS ORDERED: CALC1TAB12 PO (20:32)
[2017-10-04] MEDS ORDERED: AMOX500C PO (20:32)
[2017-10-04] MEDS ORDERED: SERT-132 PO (20:32)
[2017-10-04] MEDS ORDERED: OLAN5TAB PO (20:32)
[2017-10-04] MEDS ORDERED: LISI-515 PO (20:32)
[2017-10-04] MEDS ORDERED: TACR0.5C PO (20:32)
[2017-10-04] MEDS ORDERED: CHOL500022 PO (20:32)
[2017-10-04] MEDS ORDERED: MAGN500T2 PO (20:32)
[2017-10-04] MEDS ORDERED: ACYC400T PO (20:32)
--- NOTE | 2017-10-04 20:47 | RADRPT ---
EXAM DATE/TIME: 10/04/2017 20:34 [facility] COMPARISON: CHEST SINGLE AP, November 03, 2016, 18:12. INDICATIONS : Fever MEDICAL HISTORY : Hypertension. Diabetes mellitus type II. Leukemia SURGICAL HISTORY : PICC Line. ENCOUNTER: Initial ACUITY: 1 day PAIN SCORE: 0/10 LOCATION: Bilateral chest FINDINGS: A single view of the chest demonstrates the lungs to be symmetrically aerated without evidence of mas s, infiltrate or effusion. The cardiomediastinal contours are unremarkable. Osseous structures are intact. Right-sided portacatheter is noted and the tip overlies the SVC. CONCLUSION: No acute disease. Sunil Morris MD on October 04, 2017 at 20:44 Board Certified Radiologist. This report was verified electronically.
[2017-10-04 21:00] VITALS: BP 114/66; PULSE 96; RESP 30; O2SAT 96
[2017-10-04 21:12] VITALS: RESP 33; O2SAT 96
[2017-10-04 21:12] LABS: HEMATOCRIT 30.1 % (39.0-51.0); HEMOGLOBIN 10.6 GM/DL (13.0-17.0); MEAN CORPUSCULAR HEMOGLOBIN 32.1 PG (27.0-34.0); MEAN CORPUSCULAR HGB CONC 35.2 % (32.0-36.0); MEAN PLATELET VOLUME 10.4 FL (7.0-11.0); RED BLOOD COUNT 3.31 MIL/MM3 (4.50-5.90); RED CELL DISTRIBUTION WIDTH 14.9 % (11.6-17.2)
[2017-10-04 21:20] LABS: PLATELET COUNT 7 TH/MM3 (150-450)
[2017-10-04 21:27] LABS: INTERNATIONAL NORMALIZED RATIO 1.2 RATIO; PROTHROMBIN TIME - PATIENT 12.2 SEC (9.8-11.6)
[2017-10-04] MEDS ORDERED: SODIUM CHLOR 0.9% 250 ML INJ 250 ML IV ONE ×2 (21:30→23:30)
--- NOTE | 2017-10-04 21:42 | PD ---
HPI Chief Complaint: GI Complaint Time Seen by Provider: 20:11 Travel History International Travel<30 days: No Contact w/Intl Traveler<30days: No Traveled to known affect area: No History of Present Illness HPI Is a 47-year-old man, presents to the emergency department complaining of nausea vomiting diarrhea abdominal pain and bloody stools. 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 He was in his usual state of health until today the fairly abrupt onset of crampy severe abdominal pain associated with loose watery diarrhea. This continued throughout the afternoon and he started to have nausea and vomiting. He had one episode of several tablespoons for bright red blood in the stool. He was transfused 2 units of packed red blood cells on Thursday. His platelets have been low for some time. No history of dark black stools prior to this. No history of abdominal surgeries. Has been feeling a little bit fatigued and weak for the past 2 weeks or so. He is due for a bone marrow biopsy for reassessment of his transplant this week at [facility]. Patient also has a history of pulmonary actinomycosis and is on amoxicillin daily through January 2018. History Past Medical History Narrative Medical AML, diagnosed October 2015, relapsed September 2016, status post bone marrow transplant April 2017, on Rapamune and tacrolimus Diabetes Depression Hypertension On daily amoxicillin for pulmonary actinomycosis infection, continuing through January 2018 Tetanus Vaccination: Unknown Influenza Vaccination: Yes Social History Alcohol Use: No Tobacco Use: No Allergies-Medications (Allergen,Severity, Reaction): Coded Allergies: vancomycin (Unverified Adverse Reaction, Severe, Diarrhea, 10/04/17) Per pt and his record review he uneventfully took IV vancomycin in December 2015. In october 16-2016 he developped severe diarrhea during vancomycin use, no rash per his account. Reported Meds & Prescriptions Reported Meds & Active Scripts Active Reported Oxycodone (Oxycodone HCl) 10 Mg Tab 10 Mg PO Q6H PRN Tacrolimus 0.5 Mg Cap 0.5 Mg PO DAILY Sirolimus 2 Mg Tab 2 Mg PO DAILY Sertraline (Sertraline HCl) 50 Mg Tab 50 Mg PO DAILY Olanzapine 5 Mg Tab 5 Mg PO DAILY Magnesium Oxide 500 Mg Tab 500 Mg PO BID Lisinopril 20 Mg Tab 20 Mg PO BID Novolog Inj (Insulin Aspart) 100 Unit/Ml Inj SQ Vitamin D3 Maximum Strength (Cholecalciferol) 5,000 Unit Cap 50,000 Units PO DAILY Calcium 500 +D (Calcium Carbonate-Cholecalciferol) 500-400 Mg-Unit Tab 1 Tab PO BID Amoxicillin 500 Mg Cap 500 Mg PO TID Acyclovir 400 Mg Tab 400 Mg PO BID Atenolol 100 Mg Tab 100 Mg PO DAILY Diazepam 10 Mg Tab 10 Mg PO HS PRN Metformin (Metformin HCl) 850 Mg Tab 1,000 Mg PO BIDPC With meals Review of Systems Except as stated in HPI: all other systems reviewed are Neg Physical Exam Narrative GENERAL: 47-year-old man, little bit pale, clammy. HEAD: Atraumatic. Normocephalic. EYES: Pupils equal and round. No scleral icterus. No injection or drainage. ENT: No nasal bleeding or discharge. Mucous membranes pink and moist. NECK: Trachea midline. No JVD. CARDIOVASCULAR: Regular rate and rhythm. No murmur appreciated. RESPIRATORY: No accessory muscle use. Clear to auscultation. Breath sounds equal bilaterally. GASTROINTESTINAL: Abdomen soft. Mild diffuse tenderness. No rebound. MUSCULOSKELETAL: No obvious deformities. No edema. NEUROLOGICAL: Awake and alert. No obvious cranial nerve deficits. Motor grossly within normal limits. Normal speech. PSYCHIATRIC: Appropriate mood and affect; insight and judgment normal. Data Data Last Documented VS Vital Signs Date Time Temp Pulse Resp B/P (MAP) Pulse Ox O2 Delivery O2 Flow Rate FiO2 10/04/17 23:00 94 22 111/64 (80) 96 Room Air 10/04/17 19:59 98.5 Orders Orders Sepsis Workup Initiated (10/04/17 ) Complete Blood Count With Diff (10/04/17 20:27) Comprehensive Metabolic Panel (10/04/17 20:27) Prothrombin Time / Inr (Pt) (10/04/17 20:27) Act Partial Throm Time (Ptt) (10/04/17 20:27) Lactic Acid Sepsis Protocol (10/04/17 20:27) Magnesium (Mg) (10/04/17 20:27) Troponin I (10/04/17 20:27) Urinalysis - C+S If Indicated (10/04/17 20:27) Blood Culture (10/04/17 20:27) Chest, Single Ap (10/04/17 20:27) Ecg Monitoring (10/04/17 20:27) Iv Access Insert/Monitor (10/04/17 20:27) Oximetry (10/04/17 20:27) Oxygen Administration (10/04/17 20:27) Enteric Path (Stool) (10/04/17 20:27) C Diff Toxin Pcr (10/04/17 20:27) Ct Abd/Pel W Iv Contrast(Rout) (10/04/17 ) Sodium Chlor 0.9% 1000 Ml Inj (Ns 1000 M (10/04/17 20:30) Type And Screen (10/04/17 21:20) Platelet Pheresis (10/04/17 21:20) Blood Product Administration (10/04/17 21:20) Sodium Chlor 0.9% 250 Ml Inj (Ns 250 Ml (10/04/17 21:30) Iohexol 350 Inj (Omnipaque 350 Inj) (10/04/17 19:54) Admit Order (Ed Use Only) (10/04/17 ) Labs Laboratory Tests Test 10/04/17 21:00 White Blood Count 12.0 TH/MM3 Red Blood Count 3.31 MIL/MM3 Hemoglobin 10.6 GM/DL Hematocrit 30.1 % Mean Corpuscular Volume 91.0 FL Mean Corpuscular Hemoglobin 32.1 PG Mean Corpuscular Hemoglobin Concent 35.2 % Red Cell Distribution Width 14.9 % Platelet Count 7 TH/MM3 Mean Platelet Volume 10.4 FL CBC Comment AUTO DIFF Differential Total Cells Counted 100 Neutrophils % (Manual) 5 % Band Neutrophils % 1 % Lymphocytes % 89 % Monocytes % 5 % Neutrophils # (Manual) 0.7 TH/MM3 Differential Comment FINAL DIFF MANUAL Platelet Estimate RARE Platelet Morphology Comment NORMAL Red Cell Morphology Comment NORMAL Prothrombin Time 12.2 SEC Prothromb Time International Ratio 1.2 RATIO Activated Partial Thromboplast Time 29.8 SEC Blood Urea Nitrogen 8 MG/DL Creatinine 0.80 MG/DL Random Glucose 260 MG/DL Total Protein 5.9 GM/DL Albumin 2.8 GM/DL Calcium Level 8.3 MG/DL Magnesium Level 1.8 MG/DL Alkaline Phosphatase 111 U/L Aspartate Amino Transf (AST/SGOT) 20 U/L Alanine Aminotransferase (ALT/SGPT) 24 U/L Total Bilirubin 0.3 MG/DL Sodium Level 133 MEQ/L Potassium Level 3.3 MEQ/L Chloride Level 101 MEQ/L Carbon Dioxide Level 24.0 MEQ/L Anion Gap 8 MEQ/L Estimat Glomerular Filtration Rate 103 ML/MIN Lactic Acid Level 0.8 mmol/L Troponin I LESS THAN 0.02 NG/ML [facility] Medical Decision Making Medical Screen Exam Complete: Yes Emergency Medical Condition: Yes Interpretation(s) LABS: CBC remarkable for mild leukocytosis, mild anemia, platelet count 7000 CMP Lactate 0.8 Troponin INR 1.2 Chest x-ray no acute disease CT abdomen pelvis: Splenomegaly, hepatic steatosis, reticular-nodular infiltrate in the right middle lung, mild mesenteric edema trace free fluid, gallbladder is abnormal with some pericholecystic fluid, consider cholecystitis. Differential Diagnosis Colitis, enteritis, C. difficile, adverse effect of medication, other Narrative Course Medical decision making INITIAL is a 47 year male presents emerged department complaining of abdominal pain vomiting loose stools with bloody diarrhea, platelet count of 7000, on immune suppression. Also on daily antibiotics at risk for C. difficile. Will check labs, stool studies, IV fluid rehydration, CT, reassess. Likely admission. Follows with Dr. Olea. FINAL: Patient with colitis, blood in the stool, thrombocytopenia. Looks well. CT scan shows old mesenteric edema, as well as some abnormal appearance of the gallbladder. Clinically I do not think he has cholecystitis. Platelet count is pretty low. I spoke with Dr. Kennedy, agrees with platelet transfusion, radiated. Spoke with blood bank. We will plan on Flagyl, await stool studies, stool cultures, admission. Spoke with Dr. Evans, will admit patient. Diagnosis Primary Impression: Colitis Admitting Information Admitting Physician Requests: Admit Carlos Hanna MD Oct 04, 2017 21:42
[2017-10-04 21:43] LABS: ALBUMIN 2.8 GM/DL (3.4-5.0); AST (GOT) 20 U/L (15-37); BANDS 1 % (0-6); BLOOD UREA NITROGEN 8 MG/DL (7-18); CALCIUM 8.3 MG/DL (8.5-10.1); CHLORIDE 101 MEQ/L (98-107); GLOMERULAR FILTRATION RATE 103 ML/MIN (>89); GLUCOSE,RANDOM 260 MG/DL (74-106); MAGNESIUM 1.8 MG/DL (1.5-2.5); MONOCYTES 5 % (0-8); NEUTROPHIL # MANUAL DIFF 0.7 TH/MM3 (1.8-7.7); POLYS (SEG NEUTROPHILS) 5 % (16-70); SODIUM (NA) 133 MEQ/L (136-145)
[2017-10-04 21:44] LABS: ALT (GPT) 24 U/L (12-78)
[2017-10-04 21:47] LABS: ALKALINE PHOSPHATASE 111 U/L (45-117); TOTAL BILIRUBIN ADULT 0.3 MG/DL (0.2-1.0); TOTAL PROTEIN 5.9 GM/DL (6.4-8.2); TROPONIN I LESS THAN 0.02 NG/ML (0.02-0.05)
[2017-10-04 22:00] VITALS: BP 123/68; PULSE 96; RESP 26; O2SAT 96
--- NOTE | 2017-10-04 22:49 | RADRPT ---
EXAM DATE/TIME: 10/04/2017 22:25 [place] COMPARISON: CT ABDOMEN & PELVIS W CONTRAST, January 25, 2016, 12:14. INDICATIONS : Fever, vomiting and bloody diarrhea IV CONTRAST: 95 cc Omnipaque 350 (iohexol) IV ORAL CONTRAST: No oral contrast ingested. RADIATION DOSE: 16.38 CTDIvol (mGy) MEDICAL HISTORY : Diabetes mellitus type 1. Hypertension. Leukemia. SURGICAL HISTORY : Bone marrow transplant ENCOUNTER: Initial ACUITY: 1 day PAIN SCALE: 5/10 LOCATION: diffuse abdomen TECHNIQUE: Volumetric scanning of the abdomen and pelvis was performed. Using automated exposure control and ad justment of the mA and/or kV according to patient size, radiation dose was kept as low as reasonably achievable to obtain optimal diagnostic quality images. DICOM format image data is available electro nically for review and comparison. FINDINGS: In the right middle lobe there is a subtle reticular-nodular infiltrate identified which is inco mpletely imaged on this study. There are no pleural or pericardial effusions. Mild hepatic steatosis. The spleen is enlarged measuring 14.6 cm in AP dimension. This is not significantly changed. Pancrea s, adrenal glands, left kidney unremarkable. There is a small cyst at the midpole of the right kidney which is unchanged measuring approximately 1.1 cm. A few scattered atherosclerotic calcifications of the aorta and iliac vessels are seen. Prostate and urinary bladder are unremarkable. There is trace fluid in the pelvis. There are no signs of bowel obstruction or free air. There is either gallbladder wall edema versus pericholecystic fluid. There is a tiny low-density lesion in the left lobe of the liver measuring 7.1 mm, incompletely characterized on this study. It is unchanged over 2 years. There is no adenopathy. There is mild mesenteric haziness and trace free fluid in the right lower quadrant . The appendix is not visualized. There are no findings to suggest appendicitis. There are mild degen erative changes of the spine noted. CONCLUSION: 1. Splenomegaly. 2. Hepatic steatosis. 3. Mild reticular-nodular infiltrate in right middle lobe, incompletely imaged on this study. 4. Scattered atherosclerotic calcifications. 5. Stable tiny right renal cyst. 6. There is mild mesenteric edema and trace free fluid without obvious small or large bowel abnormali ty. 7. No pathologically enlarged lymph nodes are identified within the abdomen or pelvis. 8. Gallbladder is abnormal with either wall edema or pericholecystic fluid. In the appropriate clinic al setting cholecystitis can have this appearance. Sunil Morris MD on October 04, 2017 at 22:41 Board Certified Radiologist. This report was verified electronically.
[2017-10-04 23:00] VITALS: BP 111/64; PULSE 94; RESP 22; O2SAT 96
--- NOTE | 2017-10-04 23:27 | HHI.HP ---
[facility] Service [facility] Primary Care Physician Forrest Phillips MD Admission Diagnosis Colitis, thrombocytopenia Diagnoses: Chief Complaint: Abdominal pain, diarrhea Travel History International Travel<30 Days: No Contact w/Intl Traveler <30 Da: No Traveled to Known Affected Are: No History of Present Illness 47-year-old male with a history of acute myeloid leukemia, 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 Patient does have a history of relapsed AML status post bone marrow transplant currently on sirolimus and tacrolimus. He states these symptoms all started today and he complains of intermittent, crampy, abdominal pain associated watery liquid stools nausea and vomiting. He did state he did have a small amount of bright red blood in stool and upon arrival to the ED he was found to have a platelet count of 7000. On Thursday he was just transfused with 2 units of packed red blood cells, but no platelets. He also complains of associated weakness for the past few weeks. 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 Oncologist: Dr. Olea Review of Systems Except as stated in HPI: all other systems reviewed are Neg Past Family Social History Past Medical History AML, diagnosed October 2015, relapsed September 2016, bone marrow transplant April 2017 Diabetes Depression Hypertension Pulmonary actinomycosis Past Surgical History Anal sphinterectomy Port placement Tonsillectomy Bone marrow transplant in April 2017 Reported Medications Reported Meds & Active Scripts Active Reported Oxycodone (Oxycodone HCl) 10 Mg Tab 10 Mg PO Q6H PRN Tacrolimus 0.5 Mg Cap 0.5 Mg PO DAILY Sirolimus 2 Mg Tab 2 Mg PO DAILY Sertraline (Sertraline HCl) 50 Mg Tab 50 Mg PO DAILY Olanzapine 5 Mg Tab 5 Mg PO DAILY Magnesium Oxide 500 Mg Tab 500 Mg PO BID Lisinopril 20 Mg Tab 20 Mg PO BID Novolog Inj (Insulin Aspart) 100 Unit/Ml Inj SQ Vitamin D3 Maximum Strength (Cholecalciferol) 5,000 Unit Cap 50,000 Units PO DAILY Calcium 500 +D (Calcium Carbonate-Cholecalciferol) 500-400 Mg-Unit Tab 1 Tab PO BID Amoxicillin 500 Mg Cap 500 Mg PO TID Acyclovir 400 Mg Tab 400 Mg PO BID Atenolol 100 Mg Tab 100 Mg PO DAILY Diazepam 10 Mg Tab 10 Mg PO HS PRN Metformin (Metformin HCl) 850 Mg Tab 1,000 Mg PO BIDPC With meals Allergies: Coded Allergies: vancomycin (Unverified Adverse Reaction, Severe, Diarrhea, 10/04/17) Per pt and his record review he uneventfully took IV vancomycin in December 2015. In october 16-2016 he developped severe diarrhea during vancomycin use, no rash per his account. Active Ordered Medications Current Medications Medications (Trade) Dose Ordered Sig/Génesis Route Start Time Stop Time Status Last Admin Sodium Chloride 250 ml @ 15 mls/hr ONCE ONCE IV 10/04/17 21:30 10/05/17 14:09 Sodium Chloride 250 ml @ 15 mls/hr ONCE ONCE IV 10/04/17 23:30 10/05/17 16:09 Sodium Chloride 1,000 ml @ 84 mls/hr [id number] IV 10/05/17 00:41 (NS Flush) 2 ml UNSCH PRN IV FLUSH 10/05/17 00:45 (NS Flush) 2 ml BID IV FLUSH 10/05/17 09:00 (Tylenol) 650 mg Q4H PRN PO 10/05/17 00:45 (Zofran Inj) 4 mg Q6H PRN IVP 10/05/17 00:45 (Narcan Inj) 0.4 mg UNSCH PRN IV PUSH 10/05/17 00:45 (Joslyn-Colace) 1 tab BID PO 10/05/17 09:00 (Milk Of Magnesia Liq) 30 ml Q12H PRN PO 10/05/17 00:45 (Senokot) 17.2 mg Q12H PRN PO 10/05/17 00:45 (Dulcolax Supp) 10 mg DAILY PRN RECTAL 10/05/17 00:45 (Lactulose Liq) 30 ml DAILY PRN PO 10/05/17 00:45 Metronidazole 100 ml @ 100 mls/hr Q8H IV 10/05/17 08:00 Family History Bother: MRI Mother: Metastatic colon cancer Social History Tobacco use: Denies Alcohol use: Denies illicit drug use: Denies Physical Exam Vital Signs Vital Signs Date Time Temp Pulse Resp B/P (MAP) Pulse Ox O2 Delivery O2 Flow Rate FiO2 10/04/17 23:00 94 22 111/64 (80) 96 Room Air 10/04/17 22:00 96 26 123/68 (86) 96 Room Air 10/04/17 21:12 33 96 Room Air 10/04/17 21:00 96 30 114/66 (82) 96 Room Air 10/04/17 20:18 100 33 115/77 (90) 96 Room Air 10/04/17 19:59 98.5 107 18 114/67 (83) 96 Physical Exam GENERAL: This is a well-nourished, well-developed patient, who appears unwell SKIN: No rashes, ecchymoses or lesions. Cool and dry. HEAD: Atraumatic. Normocephalic. EYES: Pupils equal round and reactive. Extraocular motions intact. ENT: Nose without bleeding, purulent drainage or septal hematoma. Airway patent. CARDIOVASCULAR: Regular rate and rhythm without murmurs, gallops, or rubs. RESPIRATORY: Clear to auscultation. Breath sounds equal bilaterally. No wheezes , rales, or rhonchi. GASTROINTESTINAL: Abdomen soft, diffuse tenderness, nondistended. MUSCULOSKELETAL: Extremities without clubbing, cyanosis, or edema. No joint tenderness, effusion, or edema noted. No calf tenderness. NEUROLOGICAL: Awake and alert. Motor and sensory grossly within normal limits. Normal speech. Laboratory Laboratory Tests Test 10/04/17 21:00 White Blood Count 12.0 Red Blood Count 3.31 Hemoglobin 10.6 Hematocrit 30.1 Mean Corpuscular Volume 91.0 Mean Corpuscular Hemoglobin 32.1 Mean Corpuscular Hemoglobin Concent 35.2 Red Cell Distribution Width 14.9 Platelet Count 7 Mean Platelet Volume 10.4 CBC Comment AUTO DIFF Differential Total Cells Counted 100 Neutrophils % (Manual) 5 Band Neutrophils % 1 Lymphocytes % 89 Monocytes % 5 Neutrophils # (Manual) 0.7 Differential Comment FINAL DIFF MANUAL Platelet Estimate RARE Platelet Morphology Comment NORMAL Red Cell Morphology Comment NORMAL Prothrombin Time 12.2 Prothromb Time International Ratio 1.2 Activated Partial Thromboplast Time 29.8 Blood Urea Nitrogen 8 Creatinine 0.80 Random Glucose 260 Total Protein 5.9 Albumin 2.8 Calcium Level 8.3 Magnesium Level 1.8 Alkaline Phosphatase 111 Aspartate Amino Transf (AST/SGOT) 20 Alanine Aminotransferase (ALT/SGPT) 24 Total Bilirubin 0.3 Sodium Level 133 Potassium Level 3.3 Chloride Level 101 Carbon Dioxide Level 24.0 Anion Gap 8 Estimat Glomerular Filtration Rate 103 Lactic Acid Level 0.8 Troponin I LESS THAN 0.02 Date/Time Source Procedure Growth Status 10/04/17 21:05 Blood Peripheral Aerobic Blood Culture Pending Received 10/04/17 21:05 Blood Peripheral Anaerobic Blood Culture Pending Received Result Diagram: 10/04/17 2100 10/04/17 2100 Imaging Last Impressions Chest X-Ray 10/04/172026 Signed Impressions: Service Date/Time: Wednesday, October 04, 2017 20:34 - CONCLUSION: No acute disease. Sunil Morris MD Abdomen/Pelvis CT 10/04/17 0000 Signed Impressions: Service Date/Time: Wednesday, October 04, 2017 22:25 - CONCLUSION: 1. Splenomegaly. 2. Hepatic steatosis. 3. Mild reticular-nodular infiltrate in right middle lobe , incompletely imaged on this study. 4. Scattered atherosclerotic calcifications. 5. Stable tiny right renal cyst. 6. There is mild mesenteric edema and trace free fluid without obvious small or large bowel abnormality. 7. No pathologically enlarged lymph nodes are identified within the abdomen or pelvis. 8. Gallbladder is abnormal with either wall edema or pericholecystic fluid. In the appropriate clinical setting cholecystitis can have this appearance. Sunil Morris MD Capnehal VTE Risk Assessment Caprini VTE Risk Assessment: No/Low Risk (score <= 1) Caprini Risk Assessment Model Point Value = 1 Point Value = 2 Point Value = 3 Point Value = 5 Age 41-60 Minor surgery BMI > 25 kg/m2 Swollen legs Varicose veins or History of unexplained or recurrent spontaneous Oral contraceptives or hormone replacement Sepsis (< 1 month) Serious lung disease, including pneumonia (< 1 month) Abnormal pulmonary function Acute myocardial infarction Congestive heart failure (< 1 month) History of inflammatory bowel disease Medical patient at bed rest Age 61-74 Arthroscopic surgery Major open surgery (> 45 min) Laparoscopic surgery (> 45 min) Malignancy Confined to bed (> 72 hours) Immobilizing plaster cast Central venous access Age >= 75 History of VTE Family history of VTE Factor V Leiden Prothrombin [id number] Lupus anticoagulant Anticardiolipin antibodies Elevated serum homocysteine Heparin-induced thrombocytopenia Other congenital or acquired thrombophilia Stroke (< 1 month) Elective arthroplasty Hip, pelvis, or leg fracture Acute spinal cord injury (< 1 month) Prophylaxis Regimen Total Risk Factor Score Risk Level Prophylaxis Regimen 0-1 Low Early ambulation 2 Moderate Order ONE of the following: *Sequential Compression Device (SCD) *Heparin 5000 units SQ BID 3-4 Higher Order ONE of the following medications: *Heparin 5000 units SQ TID *Enoxaparin/Lovenox 40 mg SQ daily (WT < 150 kg, CrCl > 30 mL/min) *Enoxaparin/Lovenox 30 mg SQ daily (WT < 150 kg, CrCl > 10-29 mL/min) *Enoxaparin/Lovenox 30 mg SQ BID (WT < 150 kg, CrCl > 30 mL/min) AND/OR *Sequential Compression Device (SCD) 5 or more Highest Order ONE of the following medications: *Heparin 5000 units SQ TID (Preferred with Epidurals) *Enoxaparin/Lovenox 40 mg SQ daily (WT < 150 kg, CrCl > 30 mL/min) *Enoxaparin/Lovenox 30 mg SQ daily (WT < 150 kg, CrCl > 10-29 mL/min) *Enoxaparin/Lovenox 30 mg SQ BID (WT < 150 kg, CrCl > 30 mL/min) AND *Sequential Compression Device (SCD) Assessment and Plan Problem List: (1) Thrombocytopenia ICD Code: D69.6 - Thrombocytopenia, unspecified Status: Acute (2) Colitis ICD Code: K52.9 - Noninfective gastroenteritis and colitis, unspecified Status: Acute (3) Hypertension ICD Code: I10 - Essential (primary) hypertension Status: Chronic (4) Type 2 diabetes mellitus ICD Code: E11.9 - Type 2 diabetes mellitus without complications Status: Chronic Assessment and Plan 47-year-old male with a history of acute myeloid leukemia, status post bone marrow transplant on 04/09/17, ADHD, Pulmonary actinomycosis, anxiety, hypertension, diabetes, hypercholesterolemia presented to the ED with complaints of nausea, vomiting, diarrhea, abdominal pain and bloody stools. Thrombocytopenia, acute Platelet count 7000 -Transfuse platelets -Consult medical oncology appreciated recommendations -CBC in am Colitis, acute, patient with abdominal pain and diarrhea Abdomen/pelvis CT shows mild mesenteric edema and recently fluid without obvious small or large bowel abnormality -Stool studies ordered C. difficile, enteric pathogens -Flagyl IV Q8hr -IVF for hydration Leukocytosis, wbc 12.0, suspect related to colitis -Continue IV antibiotics as above -CBC in a.m. -Close monitoring for fevers AML, chronic, status post bone marrow transplant -Continue home medications acyclovir,Sirolimus and tacrolimus -Pain management with by mouth home oxycodone Pulmonary actinomycosis -Continue home amoxicillin TID Hypertension, chronic -Resume home medications atenolol and lisinopril, monitor vitals Diabetes, chronic -Diabetic diet -Accu-Cheks with SSI -Hold home by mouth metformin while in hospital DVT prophylaxis: SCDs, hold chemical prophylaxis due to thrombocytopenia Discussed Condition With Patient, [employer] physician Physician Certification 2 Midnight Certification Type: Admission for Inpatient Services Order for Inpatient Services The services are ordered in accordance with Medicare regulations or non- Medicare payer requirements, as applicable. In the case of services not specified as inpatient-only, they are appropriately provided as inpatient services in accordance with the 2-midnight benchmark. Estimated LOS (days): 2 days is the estimated time the patient will need to remain in the hospital, assuming treatment plan goals are met and no additional complications. Post-Hospital Plan: Home Problem Qualifiers (1) Type 2 diabetes mellitus: Dara Blackwood Oct 04, 2017 23:27
[2017-10-04] MEDS ORDERED: metroNIDAZOLE 500 MG INJ 100 ML IV ONE (23:30)
[2017-10-05] VITALS (12 sets, daily range): BP systolic 104–136; BP diastolic 59–98; PULSE 95–112; RESP 16–35; TEMP 97.4–98.7; O2SAT 91–99
[2017-10-05] MEDS ORDERED: SODIUM CHLOR 0.9% 1000 ML INJ 1,000 ML IV SCH (00:41)
[2017-10-05] MEDS ORDERED: ACETAMINOPHEN 325 MG TAB PO PRN (00:45)
[2017-10-05] MEDS ORDERED: NALOXONE HCL 0.4 MG/ML AMP IV PUSH PRN (00:45)
[2017-10-05] MEDS ORDERED: LACTULOSE SYRUP 20 GM/30 ML CUP PO PRN (00:45)
[2017-10-05] MEDS ORDERED: MAGNESIUM HYDROXIDE SUSP 30 ML CUP PO PRN (00:45)
[2017-10-05] MEDS ORDERED: ONDANSETRON HCL 4 MG/2 ML VIAL IVP PRN (00:45)
[2017-10-05] MEDS ORDERED: BISACODYL 10 MG SUPP RECTAL PRN (00:45)
[2017-10-05] MEDS ORDERED: SENNOSIDES 8.6 MG TAB PO PRN (00:45)
[2017-10-05] MEDS ORDERED: SODIUM CHLORIDE 0.9% FLUSH 10 ML FLUSH IV FLUSH PRN (00:45)
[2017-10-05] MEDS ORDERED: GLUCAGON 1 MG/ML VIAL OTHER PRN (01:30)
[2017-10-05] MEDS ORDERED: DEXTROSE 50% IN WATER 50 ML VIAL(D50) IV PUSH PRN (01:30)
[2017-10-05 06:29] LABS: HEMATOCRIT 28.8 % (39.0-51.0); HEMOGLOBIN 10.3 GM/DL (13.0-17.0); MEAN CELL VOLUME 90.6 FL (80.0-100.0); MEAN CORPUSCULAR HEMOGLOBIN 32.2 PG (27.0-34.0); MEAN CORPUSCULAR HGB CONC 35.6 % (32.0-36.0); MEAN PLATELET VOLUME 7.5 FL (7.0-11.0); PLATELET COUNT 39 TH/MM3 (150-450); RED BLOOD COUNT 3.18 MIL/MM3 (4.50-5.90); RED CELL DISTRIBUTION WIDTH 15.1 % (11.6-17.2); WHITE BLOOD COUNT 12.9 TH/MM3 (4.0-11.0)
[2017-10-05 06:56] LABS: BICARBONATE 24.9 MEQ/L (21.0-32.0); CALCIUM 8.4 MG/DL (8.5-10.1); CREATININE 0.77 MG/DL (0.60-1.30)
[2017-10-05] MEDS: INSULIN ASPART SUPPLEMENTAL SCALE SQ SCH ×4 (08:00→21:11)
[2017-10-05 08:01] LABS: BANDS 1 % (0-6); BLASTS 72 % (0-0); LYMPHOCYTES 18 % (9-44); METAMYELOCYTES 1 % (0-1); MONOCYTES 3 % (0-8); NEUTROPHIL # MANUAL DIFF 0.9 TH/MM3 (1.8-7.7); POLYS (SEG NEUTROPHILS) 5 % (16-70)
[2017-10-05] MEDS ORDERED: POTASSIUM CHLORIDE 20 MEQ CONTROLLED RELEASE TAB PO ONE (08:45)
[2017-10-05] MEDS ORDERED: POTASSIUM CHLORIDE 10 MEQ CONTROLLED RELEASE TAB PO ONE (08:45)
[2017-10-05] MEDS ORDERED: DOCUSATE SODIUM 50 MG/SENNA 8.6 MG TAB PO SCH (09:00)
[2017-10-05] MEDS ORDERED: OLANZapine 5 MG TAB PO SCH (09:00)
[2017-10-05] MEDS: SODIUM CHLORIDE 0.9% FLUSH 10 ML FLUSH IV FLUSH SCH ×2 (09:00→21:10)
[2017-10-05] MEDS: SIROLIMUS 2 MG TAB PO SCH (09:00)
[2017-10-05] MEDS: metroNIDAZOLE 500 MG INJ 100 ML IV SCH ×3 (09:01→23:39)
[2017-10-05] MEDS: ACYCLOVIR 200 MG CAP PO SCH ×2 (09:01→21:09)
[2017-10-05] MEDS: SERTRALINE HCL 50 MG TAB PO SCH (09:02)
[2017-10-05] MEDS: AMOXICILLIN (TRIHYDRATE) 500 MG CAP PO SCH ×3 (09:02→16:39)
[2017-10-05] MEDS: TACROLIMUS 0.5 MG CAP PO SCH (09:03)
[2017-10-05] MEDS: LISINOPRIL 20 MG TAB PO SCH ×2 (09:03→21:10)
[2017-10-05] MEDS: ATENOLOL 100 MG TAB PO SCH (09:03)
[2017-10-05] MEDS: MAGNESIUM OXIDE 400 MG TAB PO SCH ×2 (09:04→21:10)
[2017-10-05] MEDS: CALCIUM/VITAMIN D 250 MG/125 U TAB PO SCH ×2 (09:04→21:10)
[2017-10-05 09:17] LABS: BLASTS 64 % (0-0)
[2017-10-05] MEDS: CHOLECALCIFEROL (VIT D3) 5000 UNIT CAP PO SCH (09:20)
[2017-10-05 09:24] LABS: LYMPHOCYTES 24 % (9-44)
--- NOTE | 2017-10-05 10:41 | HHI.PR ---
Subjective Remarks Follow-up colitis. One loose stool today no nausea or vomiting. Initially was lethargic after receiving Zyprexa which he usually takes in the evening. Discussed with and nursing Objective Vitals Vital Signs Date Time Temp Pulse Resp B/P (MAP) Pulse Ox O2 Delivery O2 Flow Rate FiO2 10/05/17 08:06 97.9 103 17 108/63 (78) 93 10/05/17 04:30 108 10/05/17 04:00 97.4 112 19 130/74 (92) 96 10/05/17 03:28 10/05/17 02:47 106 30 104/59 (74) 95 Room Air 10/05/17 01:48 98.5 103 35 126/74 95 10/05/17 01:33 98.5 101 32 131/77 95 10/04/17 23:00 94 22 111/64 (80) 96 Room Air 10/04/17 22:00 96 26 123/68 (86) 96 Room Air 10/04/17 21:12 33 96 Room Air 10/04/17 21:00 96 30 114/66 (82) 96 Room Air 10/04/17 20:18 100 33 115/77 (90) 96 Room Air 10/04/17 19:59 98.5 107 18 114/67 (83) 96 I/O 10/04/17 10/04/17 10/04/17 10/05/17 10/05/17 10/05/17 07:00 15:00 23:00 07:00 15:00 23:00 Intake Total 1000 ml 331 ml Balance 1000 ml 331 ml Intake Oral 120 ml IV Total 1000 ml Platelets 191 ml Blood Product IV Normal Saline Flush 20 ml # Voids 1 # Bowel Movements 1 Result Diagram: 10/05/17 0600 10/05/17 0600 Imaging Last Impressions Chest X-Ray 10/04/172026 Signed Impressions: Service Date/Time: Wednesday, October 04, 2017 20:34 - CONCLUSION: No acute disease. Sunil Morris MD Abdomen/Pelvis CT 10/04/17 0000 Signed Impressions: Service Date/Time: Wednesday, October 04, 2017 22:25 - CONCLUSION: 1. Splenomegaly. 2. Hepatic steatosis. 3. Mild reticular-nodular infiltrate in right middle lobe , incompletely imaged on this study. 4. Scattered atherosclerotic calcifications. 5. Stable tiny right renal cyst. 6. There is mild mesenteric edema and trace free fluid without obvious small or large bowel abnormality. 7. No pathologically enlarged lymph nodes are identified within the abdomen or pelvis. 8. Gallbladder is abnormal with either wall edema or pericholecystic fluid. In the appropriate clinical setting cholecystitis can have this appearance. Sunil Morris MD Objective Remarks GENERAL: This is a well-nourished, well-developed patient, who appears unwell SKIN: No rashes, ecchymoses or lesions. Cool and dry. CARDIOVASCULAR: Regular rate and rhythm without murmurs, gallops, or rubs. RESPIRATORY: Clear to auscultation. Breath sounds equal bilaterally. No wheezes , rales, or rhonchi. GASTROINTESTINAL: Abdomen soft, diffuse tenderness, nondistended. MUSCULOSKELETAL: Extremities without clubbing, cyanosis, or edema. No joint tenderness, effusion, or edema noted. No calf tenderness. NEUROLOGICAL: Lethargic easily arousable following commands. Motor and sensory grossly within normal limits. Normal speech. 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 Thrombocytopenia, acute Platelet count 7000 -Improved after platelet transfusion -Consult medical oncology appreciated recommendations -CBC in am Colitis, acute, patient with abdominal pain and diarrhea Abdomen/pelvis CT shows mild mesenteric edema and recently fluid without obvious small or large bowel abnormality -Stool studies ordered C. difficile, enteric pathogens -Flagyl IV Q8hr -IVF for hydration -Consult GI Sepsis, suspect related to colitis -Continue IV antibiotics as above -CBC in a.m. -Close monitoring for fevers. Monitor cultures AML, chronic, status post bone marrow transplant -Continue home medications acyclovir,Sirolimus and tacrolimus -Pain management with by mouth home oxycodone Pulmonary actinomycosis -Continue home amoxicillin TID Hypertension, chronic -Resume home medications atenolol and lisinopril, monitor vitals Diabetes, chronic -Diabetic diet -Accu-Cheks with SSI -Hold home by mouth metformin while in hospital DVT prophylaxis: SCDs, hold chemical prophylaxis due to thrombocytopenia and GI bleed Problem Qualifiers (1) Type 2 diabetes mellitus: Keegan Cotto MD Oct 05, 2017 10:41
[2017-10-05] MEDS: LACTOBACILLUS ACIDOPHILUS TAB PO SCH ×2 (11:42→16:40)
[2017-10-05] MEDS: NS + KCL 20 MEQ INJ 1,000 ML IV SCH ×3 (11:44→23:38)
--- NOTE | 2017-10-05 13:01 | PD.CONS ---
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 Pt is very tired and minimally answering questions and also seems to be playing down symptoms, at bedside giving most of the history. Per ER record pt came in complaining of nausea, vomiting, abdominal pain, and diarrhea. Per pt he had one episode of vomiting yesterday after the diarrhea started. States diarrhea began suddenly at 4pm yesterday and has had multiple episodes since then. Had one episode where he states he noticed a very small amount of blood, but has had multiple BMs since and denies any blood in stool. Complaining of lower bilaterally abdominal pain, intermittent, denies any aggravating or alleviating factors. Also complaining of acid reflux, per he has been chewing Tums frequently for the past couple days. 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 (Aimee Nuñez) PFSH Past Medical History AML, diagnosed October 2015, relapsed September 2016, bone marrow transplant April 2017 Diabetes Depression Hypertension Pulmonary actinomycosis Past Surgical History Anal sphinterectomy Port placement Tonsillectomy Bone marrow transplant in April 2017 EGD Colonoscopy (Aimee Nuñez) Coded Allergies: vancomycin (Unverified Adverse Reaction, Severe, Diarrhea, 10/04/17) Per pt and his record review he uneventfully took IV vancomycin in December 2015. In october 16-2016 he developped severe diarrhea during vancomycin use, no rash per his account. Family History Bother: MRI Mother: Metastatic colon cancer Social History Tobacco use: Denies Alcohol use: Denies illicit drug use: Denies (Aimee Nuñez) Review of Systems Gastrointestinal: COMPLAINS OF: Abdominal pain, Bloody stools, Diarrhea, Nausea , Vomiting, Heartburn, DENIES: Black stools, Constipation, Difficulty Swallowing , Odynophagia, Swelling of Abdomen, Hematemesis (Aimee Nuñez) GI Exam Vitals I&O Vital Signs Date Time Temp Pulse Resp B/P (MAP) Pulse Ox O2 Delivery O2 Flow Rate FiO2 10/05/17 08:06 97.9 103 17 108/63 (78) 93 10/05/17 08:00 103 10/05/17 04:30 108 10/05/17 04:00 97.4 112 19 130/74 (92) 96 10/05/17 03:28 10/05/17 02:47 106 30 104/59 (74) 95 Room Air 10/05/17 01:48 98.5 103 35 126/74 95 10/05/17 01:33 98.5 101 32 131/77 95 10/04/17 23:00 94 22 111/64 (80) 96 Room Air 10/04/17 22:00 96 26 123/68 (86) 96 Room Air 10/04/17 21:12 33 96 Room Air 10/04/17 21:00 96 30 114/66 (82) 96 Room Air 10/04/17 20:18 100 33 115/77 (90) 96 Room Air 10/04/17 19:59 98.5 107 18 114/67 (83) 96 I/O 10/04/17 10/04/17 10/04/17 10/05/17 10/05/17 10/05/17 07:00 15:00 23:00 07:00 15:00 23:00 Intake Total 1000 ml 331 ml Balance 1000 ml 331 ml Intake Oral 120 ml IV Total 1000 ml Platelets 191 ml Blood Product IV Normal Saline Flush 20 ml # Voids 1 # Bowel Movements 1 Imaging Last Impressions Chest X-Ray 10/04/172026 Signed Impressions: Service Date/Time: Wednesday, October 04, 2017 20:34 - CONCLUSION: No acute disease. Sunil Morris MD Abdomen/Pelvis CT 10/04/17 0000 Signed Impressions: Service Date/Time: Wednesday, October 04, 2017 22:25 - CONCLUSION: 1. Splenomegaly. 2. Hepatic steatosis. 3. Mild reticular-nodular infiltrate in right middle lobe , incompletely imaged on this study. 4. Scattered atherosclerotic calcifications. 5. Stable tiny right renal cyst. 6. There is mild mesenteric edema and trace free fluid without obvious small or large bowel abnormality. 7. No pathologically enlarged lymph nodes are identified within the abdomen or pelvis. 8. Gallbladder is abnormal with either wall edema or pericholecystic fluid. In the appropriate clinical setting cholecystitis can have this appearance. Sunil Morris MD Laboratory Test 10/04/17 21:00 10/05/17 06:00 10/05/17 06:05 White Blood Count 12.0 TH/MM3 12.9 TH/MM3 Red Blood Count 3.31 MIL/MM3 3.18 MIL/MM3 Hemoglobin 10.6 GM/DL 10.3 GM/DL Hematocrit 30.1 % 28.8 % Mean Corpuscular Volume 91.0 FL 90.6 FL Mean Corpuscular Hemoglobin 32.1 PG 32.2 PG Mean Corpuscular Hemoglobin Concent 35.2 % 35.6 % Red Cell Distribution Width 14.9 % 15.1 % Platelet Count 7 TH/MM3 39 TH/MM3 Mean Platelet Volume 10.4 FL 7.5 FL CBC Comment AUTO DIFF AUTO DIFF Differential Total Cells Counted 100 100 Neutrophils % (Manual) 5 % 5 % Band Neutrophils % 1 % 1 % Lymphocytes % 24 % 18 % Monocytes % 5 % 3 % Neutrophils # (Manual) 0.7 TH/MM3 0.9 TH/MM3 Differential Comment FINAL DIFF MANUAL FINAL DIFF MANUAL Blastocytes 64 % 72 % Platelet Estimate RARE LOW Platelet Morphology Comment NORMAL NORMAL Red Cell Morphology Comment NORMAL Prothrombin Time 12.2 SEC Prothromb Time International Ratio 1.2 RATIO Activated Partial Thromboplast Time 29.8 SEC Blood Urea Nitrogen 8 MG/DL 6 MG/DL Creatinine 0.80 MG/DL 0.77 MG/DL Random Glucose 260 MG/DL 219 MG/DL Total Protein 5.9 GM/DL Albumin 2.8 GM/DL Calcium Level 8.3 MG/DL 8.4 MG/DL Magnesium Level 1.8 MG/DL 1.8 MG/DL Alkaline Phosphatase 111 U/L Aspartate Amino Transf (AST/SGOT) 20 U/L Alanine Aminotransferase (ALT/SGPT) 24 U/L Total Bilirubin 0.3 MG/DL Sodium Level 133 MEQ/L 135 MEQ/L Potassium Level 3.3 MEQ/L 3.3 MEQ/L Chloride Level 101 MEQ/L 104 MEQ/L Carbon Dioxide Level 24.0 MEQ/L 24.9 MEQ/L Anion Gap 8 MEQ/L 6 MEQ/L Estimat Glomerular Filtration Rate 103 ML/MIN 107 ML/MIN Lactic Acid Level 0.8 mmol/L Troponin I LESS THAN 0.02 NG/ML Metamyelocytes 1 % Stool C. difficile Toxin (PCR) NEGATIVE Stl C. difficile Toxin Epiderm 027 PRESUMPTIVE NEGATIVE Date/Time Source Procedure Growth Status 10/04/17 21:05 Blood Peripheral Aerobic Blood Culture - Preliminary NO GROWTH IN 1 DAY Resulted 10/04/17 21:05 Blood Peripheral Anaerobic Blood Culture - Preliminary NO GROWTH IN 1 DAY Resulted Physical Examination HEENT: Normocephalic; atraumatic CHEST: Even/unlabored CARDIAC: RRR ABDOMEN: Soft, nondistended, (-) murphys, mild tenderness lower abdomen; bowel sounds active EXTREMITIES: No clubbing, cyanosis, or edema. SKIN: Normal; no rash; no jaundice. DENTAL COORDINATOR: No focal deficits; alert and oriented times three. (Aimee Nuñez) Assessment and Plan Plan Assessment: - Diarrhea that started at 4 yesterday with he states one episode of BRB mixed in stool. Multiple episodes of diarrhea since then. C. Diff negative. 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 Previous colonoscopy, unsure of exact timing. - Acid reflux, per has been taking Tums around the clock for the past few days - Nausea, vomiting- pt reports one episode of emesis yesterday after diarrhea began, denies nausea now. Denies hematemesis and coffee ground emesis. 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 No pathologically enlarged lymph nodes are identified with the abdomen or pelvis. - Abnormal gallbladder on imaging- (-) Bridges sign. Unclear significance CT --> Gallbladder is abnormal with either wall edema or pericholecystic fluid. - History of AML S/P bone marrow tx in Apr 2017 on Tacrolimus and Sirolimus, peripheral smear consistent with acute AML. Seen by Dr. Olea, consult note pending. - Thrombocytopenia- plts 7 on arrival now S/P 1 Platelets currently 39 - Anemia- chronic, compared to previous visit and Hgb was 10 in July - Oral thrush- on Nystatin swish and spit - Pulmonary actinomycoses- on Amoxicillin until January of this year Plan: Stool cultures Oncology following Platelets too low for GI procedures at this time Pt also refusing procedures states he just had procedures done in May Request records from [facility] viktor Further recommendations based on findings of above and clinical course Pt has been seen and examined by myself and Dr. Krishnan and this note is written on his behalf (Aimee Nuñez) Physician Comments Seen and examined with PRANAV, complaining of lower abdominal pain. Has not received any pain meds yet. Has roxycodone ordered. Will add dicyclomine and simethicone. Does not want repeat gi procedures at this time. Await stool studies. Request records from [facility]. Also discussed with Dr. Taveras who will see pt. Thank you (Phan Krishnan MD) Aimee Nuñez Oct 05, 2017 13:01 Phan Krishnan MD Oct 05, 2017 16:55
[2017-10-05] MEDS ORDERED: SIMETHICONE SUSP DROPS 40 MG/0.6 ML 30 ML BTL PO PRN (17:00)
[2017-10-05] MEDS: DICYCLOMINE HCL 20 MG TAB PO SCH (17:24)
[2017-10-05] MEDS: DIPHENOXYLATE/ATROPINE 2.5 MG/0.025 MG TAB PO SCH ×2 (18:24→23:38)
[2017-10-05] MEDS: predniSONE 20 MG TAB PO SCH (18:24)
[2017-10-05] MEDS: DIAZEPAM 10 MG TAB PO PRN (23:38)
[2017-10-06 04:00] VITALS: BP 109/67; PULSE 93; RESP 16; TEMP 97.3; O2SAT 94
[2017-10-06] MEDS: DIPHENOXYLATE/ATROPINE 2.5 MG/0.025 MG TAB PO SCH ×4 (05:47→23:46)
[2017-10-06 07:58] LABS: HEMATOCRIT 29.7 % (39.0-51.0); HEMOGLOBIN 10.4 GM/DL (13.0-17.0); MEAN CELL VOLUME 91.4 FL (80.0-100.0); MEAN PLATELET VOLUME 7.2 FL (7.0-11.0); PLATELET COUNT 35 TH/MM3 (150-450); RED BLOOD COUNT 3.25 MIL/MM3 (4.50-5.90); RED CELL DISTRIBUTION WIDTH 15.4 % (11.6-17.2); WHITE BLOOD COUNT 24.3 TH/MM3 (4.0-11.0)
[2017-10-06 08:00] VITALS: BP 105/76; PULSE 95; RESP 18; TEMP 97; O2SAT 97
[2017-10-06] MEDS: INSULIN ASPART SUPPLEMENTAL SCALE SQ SCH ×4 (08:00→20:46)
[2017-10-06 08:25] LABS: BICARBONATE 24.1 MEQ/L (21.0-32.0); CALCIUM 8.3 MG/DL (8.5-10.1); CREATININE 0.78 MG/DL (0.60-1.30); MAGNESIUM 1.8 MG/DL (1.5-2.5)
--- NOTE | 2017-10-06 08:45 | MB ---
cc: Dick Olea MD DATE: 10/05/2017 REASON FOR CONSULTATION: Consult requested by hospitalist for evaluation of acute myeloid leukemia. HISTORY OF PRESENT ILLNESS: This is a 47-year-old, very pleasant male who has a history of acute myeloid leukemia that was diagnosed 2 years ago, in October of 2015. He had normal chromosomes 46 XY, but the NPM1 was positive. He underwent idarubicin and odin-C induction chemotherapy and he still has minimal residual disease. Subsequently, he had reinduction chemotherapy with FLANG. The patient went into remission. Subsequently, he had 4 cycles of high dose odin-C consolidation chemotherapy, which he completed in April 2016. The patient went into remission. He was referred to [facility] for evaluation of allogenic bone marrow transplant. At that time, the patient had declined for the transplant. The patient was doing fine up until September 2016. He had first relapse of the acute myeloid leukemia. Again, the chromosomes were normal, but the FLT-3 was positive and NPM1 was positive as well. He underwent 2 cycles of induction CLAG-M induction chemotherapy and then he went into remission. The NPM1 remains positive, but the FLT-3 was negative. He had high dose odin-C consolidation chemotherapy and was referred to [facility] for the evaluation of the bone marrow transplant. He agreed with that and on 04/05/2017, he had high dose chemotherapy fludarabine and melphalan in preparation for the allogenic transplant. On 04/09/2017, he underwent match unrelated stem cell transplant. The patient had a rough course during the transplant. Finally, he recovered and he was discharged to home after 100 days. The patient was followed up in the clinic with weekly blood tests and monitoring his immunosuppressive medications. Recently, it was noticed that his white count and the platelet count were coming down. Three weeks ago, his white count was 1.6, platelet count was 111. Two weeks ago, the white count dropped to 1.1 and platelet count was 92. At that point, his medications were adjusted. Rydapt was stopped. Acyclovir was decreased to 50% and Bactrim was stopped. He was arranged to have pentamidine inhalation at [facility] tomorrow. He was also scheduled to have a bone marrow biopsy tomorrow at [facility]. The patient came in for the blood test last week, Thursday, and his white count was 4.5 and the platelet count dropped to 14 and hemoglobin was 9. CBC was repeated the following day, on 09/30, that showed that the platelet count went up to 17, with a hemoglobin up 8.1 and white count remains normal at 5.1. He had received a blood transfusion for hemoglobin 8.1 last . The patient was in his usual status of health until last afternoon, he developed severe lower abdominal pain, which was associated with 1 episode of vomiting and diarrhea. He also noticed a fever of 100.2, which went up to 101. His diarrhea was getting worse and he decided to come to the emergency room last evening. A CBC last night showed that the white count has gone up to 12, hemoglobin 10.6, platelet count is only 7000. The patient is admitted to the hospital for severe thrombocytopenia and also to evaluate for the diarrhea. The patient had received platelet transfusion last night. I have been asked to see him for further evaluation. The patient has been complaining of lower abdominal pain. He had frequent bowel movements. He stated that since this morning, he had moved 8 times, but the amount is very small. He had only one occasion noticed blood in the stool, but not anymore. He does not have any nausea. He does not have any more vomiting. He had only 1 episode of vomiting and fever at home. However, he does not have any fever since he has been in the hospital. He is losing weight. His performance status is declining. According to the patient's , he is mostly in bed and not able to move around much due to the extreme fatigue. Even with the blood transfusion, his fatigue did not improve much. REVIEW OF SYSTEMS: The rest of the review of systems is negative. PAST MEDICAL HISTORY: Acute myeloid leukemia, anxiety disorder, hemochromatosis, ADHD, hypercholesterolemia, anxiety disorder, diabetes mellitus. PAST SURGICAL HISTORY: Infusaport placement, tonsillectomy, undescended testis surgery, colonoscopy, bone marrow biopsies, cardiac catheterization and anal sphincterotomy. ALLERGIES: NONE. MEDICATIONS ARE: Amoxicillin, atenolol, Ativan, Zoloft, oxycodone, metformin, lisinopril, tacrolimus and sirolimus. FAMILY HISTORY: No family history of malignancy. SOCIAL HISTORY: The patient is and lives with his . He does not smoke cigarettes and does not drink alcohol. PHYSICAL EXAMINATION: GENERAL: This is a well-developed, chronically ill-appearing white male in no apparent distress. VITAL SIGNS: Temperature 97.6, heart rate is 103, blood pressure is 108/63, O2 saturation 93%. HEENT: PERRLA, EOMI, anicteric. No oral lesions noted. NECK: No lymphadenopathy noted. LUNGS: Clear. No wheezing, rhonchi or rales. HEART: Regular rate and rhythm. ABDOMEN: Soft. Tenderness noted in the low abdomen. EXTREMITIES: No pedal edema. NEUROLOGIC: Awake, alert, oriented x 3. SKIN: No significant lesions noted. ASSESSMENT: 1. Leukocytosis with 72% blast. This is most likely consistent with acute myeloid leukemia relapse. 2. Severe thrombocytopenia due to acute myeloid leukemia relapse. 3. Lower abdominal pain and severe diarrhea, with 1 episode of vomiting and blood in the stool. The etiology is unknown, but the differential is Clostridium difficile colitis versus gastrointestinal graft versus host disease. PLAN: I have reviewed his available records and I had an extensive discussion with the patient's and the daughter regarding his abnormal CBC. Last week, Thursday, on 09/30, his CBC showed white count of 5.1 and the differential count showed absolute neutrophil count of 3800. There were no peripheral blasts noted. However, yesterday, when he came in, the platelet count was 7000 and white count has gone up to 12 and there were 64% blasts. Today, he has 72% blasts with a white count 12.9, and the platelet count has gone up to 39 after the platelet transfusion. I have reviewed the peripheral smear with the hematopathologist. Clearly, he has many blasts, which is consistent with a leukemia relapse. I had called his transplant physician at [facility], Dr. Powell. We had an extensive discussion. I did not recommend any further salvage chemotherapy. He underwent a bone marrow transplant 6 months ago and he has relapsed. This is a very poor prognostic indicator. My recommendation is best supportive care with hospice. However, Dr. Powell will find out if he is eligible for a clinical trial for Opdivo. Dr. Powell will let me know in a day or 2 whether the patient is eligible for the clinical trial for refractory acute myeloid leukemia. The patient wants to wait and see if he is eligible for the clinical trial. If he is not eligible, then he agreed not to have any further chemotherapy and he will elect for hospice level of care. We had an extensive discussion with several end of life issues. The patient and his family were tearful, but they understand that he put up a good fight for the last 2 years. In spite of being aggressively treated, including the transplant, he had relapsed. I have mentioned to them that my recommendation is for no further chemotherapy and keep him comfortable. He was given an option to get second opinion. He stated that he trusted my judgment and he wants to discuss with the rest of the family and decide what would be the best course of action. I will send the peripheral blood for NGS study to see whether he has any target that he could qualify for any targeted therapy on clinical trials. If the patient's stools are negative for Clostridium difficile, then I will empirically start him on steroid and Lomotil for possible graft versus host disease. The patient and his have asked several questions and these were answered to their satisfaction. His prognosis is extremely poor. MD MYLES Spence/VALERIA , 10:41 PM , 12:32 AM [email or web address]
[2017-10-06] MEDS: metroNIDAZOLE 500 MG INJ 100 ML IV SCH ×3 (08:48→23:44)
[2017-10-06] MEDS: LACTOBACILLUS ACIDOPHILUS TAB PO SCH ×3 (08:49→16:50)
[2017-10-06] MEDS: DICYCLOMINE HCL 20 MG TAB PO SCH ×3 (08:49→16:50)
[2017-10-06] MEDS: predniSONE 20 MG TAB PO SCH (08:49)
[2017-10-06] MEDS: MAGNESIUM OXIDE 400 MG TAB PO SCH ×2 (08:50→20:44)
[2017-10-06] MEDS: CALCIUM/VITAMIN D 250 MG/125 U TAB PO SCH ×2 (08:50→20:45)
[2017-10-06] MEDS: LISINOPRIL 20 MG TAB PO SCH ×2 (08:50→20:44)
[2017-10-06] MEDS: TACROLIMUS 0.5 MG CAP PO SCH (08:50)
[2017-10-06] MEDS: SIROLIMUS 2 MG TAB PO SCH (08:51)
--- NOTE | 2017-10-06 08:51 | MB ---
cc: Anthony Taveras MD,Katlin Wahl MD DATE: 10/05/2017 PREOPERATIVE DIAGNOSES: Were rectal bleeding, diarrhea, acute myeloid leukemia, thrombocytopenia. HISTORY OF PRESENT ILLNESS: Mr. Cullen is a very unfortunate 47-year-old male with a history of AML, status post bone marrow transplant in April 2017. Unfortunately, he has apparently relapsed. The undersigned had seen him for diarrheal stools in the past, as well as for a rectal abscess and subsequent fistula. During his remission time, he did undergo a fistulotomy it surprisingly healed quite well. The patient recently was admitted with fairly severe intermittent lower abdominal pain and cramps, as well as watery liquid stools associated with some nausea and vomiting. He noted some bright red blood, mostly on the paper and on the stool after multiple cleaning episodes. The patient was seen in the emergency room, found to have a platelet count of 7000 and was admitted for further treatment. He had a C. difficile titer on his stool, which was negative. The patient has had less diarrhea and cramping since admission, but has eaten very little. He has been on multiple courses of antibiotics, due to his immunosuppression. Past medical and surgical history well documented in the history and physical and multiple consultations. PERTINENT PHYSICAL: Very thin male with chronic illness. Abdomen was very flat and soft, with signs of weight loss. Very little tenderness. No tympany. No rebound, guarding or masses. Anal inspection: Digital exam was not done, due to his diarrhea, tenderness and low platelet count. LABORATORY STUDIES: All reviewed in the chart. IMPRESSION: This is a 47-year-old male with relapse of acute myeloid leukemia after a bone marrow transplant and aggressive chemotherapy. In discussion with Dr. Olea, plans for possible experimental treatment at a tertiary care center have been evaluated. He does seem more comfortable today with less abdominal cramping and decreased stools. Rectal bleeding appears to be minimal, even with a platelet count of 7000. Would hold off on any colonic evaluation and continue some protective cream or ointment to the perianal tissues. Good anal cleaning techniques and maybe even some increased airflow with a manager hair or a fan to cool off the perianal inflammatory response. Will see how he does with some additional conservative treatment, prior to recommending any invasive endoscopic procedures. MD VANESA Vazquez/MARY JANE , 11:29 PM , 12:46 AM
[2017-10-06] MEDS: ACYCLOVIR 200 MG CAP PO SCH ×2 (08:52→20:45)
[2017-10-06] MEDS: AMOXICILLIN (TRIHYDRATE) 500 MG CAP PO SCH ×3 (08:52→16:50)
[2017-10-06] MEDS: SERTRALINE HCL 50 MG TAB PO SCH (08:52)
[2017-10-06] MEDS: ATENOLOL 100 MG TAB PO SCH (08:53)
[2017-10-06] MEDS: SODIUM CHLORIDE 0.9% FLUSH 10 ML FLUSH IV FLUSH SCH ×2 (08:53→20:45)
[2017-10-06] MEDS: CHOLECALCIFEROL (VIT D3) 5000 UNIT CAP PO SCH (08:54)
[2017-10-06 09:40] LABS: BANDS 1 % (0-6); BLASTS 83 % (0-0); LYMPHOCYTES 11 % (9-44); MONOCYTES 2 % (0-8); POLYS (SEG NEUTROPHILS) 3 % (16-70)
[2017-10-06] MEDS: HYDROXYUREA 500 MG CAP PO SCH (09:41)
[2017-10-06] MEDS: DIAZEPAM 10 MG TAB PO PRN ×2 (10:49→20:45)
[2017-10-06] MEDS: NS + KCL 20 MEQ INJ 1,000 ML IV SCH (11:55)
[2017-10-06 12:00] VITALS: BP 109/75; PULSE 99; RESP 20; TEMP 97.3; O2SAT 95
--- NOTE | 2017-10-06 12:22 | PD.ONC.PN ---
Subjective Subjective Remarks Afebrile overnight. Patient resting in bed in nad. Would like to have his accuchecks reduced to twice a day and his diet changed to regular. he is having anxiety about the recent finding that his AML is relapsed. Objective Data Date Time Temp Pulse Resp B/P (MAP) Pulse Ox O2 Delivery O2 Flow Rate FiO2 10/06/17 08:00 97.0 95 18 105/76 (86) 97 10/06/17 04:00 97.3 93 16 109/67 (81) 94 10/05/17 23:34 97.9 98 16 111/64 (80) 91 10/05/17 20:00 98.7 102 16 108/63 (78) 93 10/05/17 16:06 98.4 99 18 136/98 (111) 99 10/06/17 10/06/17 10/06/17 07:00 15:00 23:00 Intake Total 1240 ml Balance 1240 ml Result Diagram: 10/06/17 0745 10/06/17 0745 Laboratory Results Laboratory Tests Test 10/06/17 07:45 White Blood Count 24.3 TH/MM3 Red Blood Count 3.25 MIL/MM3 Hemoglobin 10.4 GM/DL Hematocrit 29.7 % Mean Corpuscular Volume 91.4 FL Mean Corpuscular Hemoglobin 32.0 PG Mean Corpuscular Hemoglobin Concent 35.0 % Red Cell Distribution Width 15.4 % Platelet Count 35 TH/MM3 Mean Platelet Volume 7.2 FL CBC Comment AUTO DIFF Differential Total Cells Counted 100 Neutrophils % (Manual) 3 % Band Neutrophils % 1 % Lymphocytes % 11 % Monocytes % 2 % Neutrophils # (Manual) 1.0 TH/MM3 Differential Comment FINAL DIFF MANUAL Blastocytes 83 % Platelet Estimate LOW Platelet Morphology Comment NORMAL Red Cell Morphology Comment NORMAL Blood Urea Nitrogen 8 MG/DL Creatinine 0.78 MG/DL Random Glucose 201 MG/DL Calcium Level 8.3 MG/DL Magnesium Level 1.8 MG/DL Sodium Level 137 MEQ/L Potassium Level 3.8 MEQ/L Chloride Level 108 MEQ/L Carbon Dioxide Level 24.1 MEQ/L Anion Gap 5 MEQ/L Estimat Glomerular Filtration Rate 106 ML/MIN Culture Results Microbiology Date/Time Source Procedure Growth Status 10/04/17 21:05 Blood Peripheral Aerobic Blood Culture - Preliminary NO GROWTH IN 2 DAYS Resulted 10/04/17 21:05 Blood Peripheral Anaerobic Blood Culture - Preliminary NO GROWTH IN 2 DAYS Resulted 10/04/17 21:00 Blood Peripheral Aerobic Blood Culture - Preliminary NO GROWTH IN 2 DAYS Resulted 10/04/17 21:00 Blood Peripheral Anaerobic Blood Culture - Preliminary NO GROWTH IN 2 DAYS Resulted Administered Medications Medications (Trade) Dose Ordered Sig/Génesis Route PRN Reason Start Time Stop Time Status Last Admin Dose Admin Sodium Chloride (NS Flush) 2 ml BID IV FLUSH 10/05/17 09:00 10/05/17 21:10 Metronidazole 100 ml @ 100 mls/hr Q8H IV 10/05/17 08:00 10/06/17 08:48 Insulin Aspart (NovoLOG SUPPLEMENTAL SCALE) 1 ACHS SLIDING SCALE SQ 10/05/17 08:00 10/06/17 08:00 Acyclovir (Zovirax) 400 mg BID PO 10/05/17 09:00 10/06/17 08:52 Amoxicillin (Trimox) 500 mg TID PO 10/05/17 09:00 10/06/17 11:55 Lisinopril (Prinivil) 20 mg BID PO 10/05/17 09:00 10/06/17 08:50 Oxycodone HCl (Roxicodone) 10 mg Q6H PRN PO PAIN 10/05/17 01:30 10/06/17 10:49 Sertraline HCl (Zoloft) 50 mg DAILY PO 10/05/17 09:00 10/06/17 08:52 Sirolimus (Rapamune) 2 mg DAILY PO 10/05/17 09:00 10/06/17 08:51 Tacrolimus (Prograf) 0.5 mg DAILY PO 10/05/17 09:00 10/06/17 08:50 Calcium/Vitamin D (Oscal-D 250-125) 500 mg BID PO 10/05/17 09:00 10/06/17 08:50 Magnesium Oxide (Mag-Ox) 400 mg BID PO 10/05/17 09:00 10/06/17 08:50 Potassium Chloride/Sodium Chloride 1,000 ml @ 100 mls/hr Q10H IV 10/05/17 08:45 10/06/17 11:55 Diazepam (Valium) 10 mg HS PRN PO ANXIETY 10/05/17 09:00 10/06/17 10:49 Lactobacillus Acidophilus (Lactinex) 1 tab TID PO 10/05/17 13:00 10/06/17 11:55 Dicyclomine HCl (Bentyl) 20 mg TID PO 10/05/17 18:00 10/06/17 11:55 Diphenoxylate HCl/ Atropine (Lomotil Tab) 1 tab Q6HR PO 10/05/17 18:00 10/06/17 11:55 Prednisone (Deltasone) 80 mg DAILY PO 10/05/17 18:15 10/06/17 08:49 Hydroxyurea (Hydrea) 500 mg DAILY PO 10/06/17 09:00 10/06/17 09:41 Objective Remarks GENERAL: Pleasant male, lying in bed resting. SKIN: Warm and dry. HEAD: Normocephalic. EYES: No injection or drainage. NECK: Supple, trachea midline. CARDIOVASCULAR: Regular rate and rhythm RESPIRATORY: Breath sounds equal bilaterally. No accessory muscle use. GASTROINTESTINAL: Abdomen soft, non-tender, nondistended. EXTREMITIES: No cyanosis NEUROLOGICAL: awake and alert. normal speech. Assessment/Plan Problem List: (1) AML (acute myeloid leukemia) ICD Codes: C92.00 - Acute myeloblastic leukemia, not having achieved remission Status: Acute Plan: 10/06: start Hydrea at 500mg PO daily to lower blood counts. monitor CBC --considering clinical trial --start Hydrea to lower blast count. 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 Assessment 47y/o male with AML, admitted with vomiting, diarrhea and abdominal pain. Acute myeloid leukemia, anxiety disorder, hemochromatosis, ADHD, hypercholesterolemia, anxiety disorder, diabetes mellitus. Attending Statement The exam, history, and the medical decision-making described in the above note were completed with the assistance of the mid-level provider. I reviewed and agree with the findings presented. I attest that I had a [id number] encounter with the patient on the same day, and personally performed and documented my assessment and findings in the medical record. No more abd pain , vomiting and diarrhea. Has situational anxiety. WBC went up probably from prednisone. D/C Steroid as no evidence of GVH. Start hydea. Home soon. Problem Qualifiers (1) AML (acute myeloid leukemia): Qualified Codes: C92.02 - Acute myeloblastic leukemia, in relapse Janet Holm Oct 06, 2017 12:22 Alexandra Olea MD Oct 06, 2017 22:26
--- NOTE | 2017-10-06 13:17 | HHI.GIFU ---
Subjective Remarks REsting in bed, at bedside. No further bleeding. Says his abd cramping and diarrhea have improved since starting bentyl and lomotil. (Bailey Adams) Objective Vitals I&O Vital Signs Date Time Temp Pulse Resp B/P (MAP) Pulse Ox O2 Delivery O2 Flow Rate FiO2 10/06/17 12:00 97.3 99 20 109/75 (86) 95 10/06/17 08:00 97.0 95 18 105/76 (86) 97 10/06/17 04:00 97.3 93 16 109/67 (81) 94 10/05/17 23:34 97.9 98 16 111/64 (80) 91 10/05/17 20:00 98.7 102 16 108/63 (78) 93 10/05/17 16:06 98.4 99 18 136/98 (111) 99 I/O 10/05/17 10/05/17 10/05/17 10/06/17 10/06/17 10/06/17 07:00 15:00 23:00 07:00 15:00 23:00 Intake Total 331 ml 720 ml 1240 ml Balance 331 ml 720 ml 1240 ml Intake Oral 120 ml 720 ml 240 ml IV Total 1000 ml Platelets 191 ml Blood Product IV Normal Saline Flush 20 ml # Voids 1 3 3 # Bowel Movements 1 1 0 Laboratory Laboratory Tests Test 10/06/17 07:45 White Blood Count 24.3 Red Blood Count 3.25 Hemoglobin 10.4 Hematocrit 29.7 Mean Corpuscular Volume 91.4 Mean Corpuscular Hemoglobin 32.0 Mean Corpuscular Hemoglobin Concent 35.0 Red Cell Distribution Width 15.4 Platelet Count 35 Mean Platelet Volume 7.2 CBC Comment AUTO DIFF Differential Total Cells Counted 100 Neutrophils % (Manual) 3 Band Neutrophils % 1 Lymphocytes % 11 Monocytes % 2 Neutrophils # (Manual) 1.0 Differential Comment FINAL DIFF MANUAL Blastocytes 83 Platelet Estimate LOW Platelet Morphology Comment NORMAL Red Cell Morphology Comment NORMAL Blood Urea Nitrogen 8 Creatinine 0.78 Random Glucose 201 Calcium Level 8.3 Magnesium Level 1.8 Sodium Level 137 Potassium Level 3.8 Chloride Level 108 Carbon Dioxide Level 24.1 Anion Gap 5 Estimat Glomerular Filtration Rate 106 Date/Time Source Procedure Growth Status 10/04/17 21:05 Blood Peripheral Aerobic Blood Culture - Preliminary NO GROWTH IN 2 DAYS Resulted 10/04/17 21:05 Blood Peripheral Anaerobic Blood Culture - Preliminary NO GROWTH IN 2 DAYS Resulted Imaging Last Impressions Chest X-Ray 10/04/172026 Signed Impressions: Service Date/Time: Wednesday, October 04, 2017 20:34 - CONCLUSION: No acute disease. Sunil Morris MD Abdomen/Pelvis CT 10/04/17 0000 Signed Impressions: Service Date/Time: Wednesday, October 04, 2017 22:25 - CONCLUSION: 1. Splenomegaly. 2. Hepatic steatosis. 3. Mild reticular-nodular infiltrate in right middle lobe , incompletely imaged on this study. 4. Scattered atherosclerotic calcifications. 5. Stable tiny right renal cyst. 6. There is mild mesenteric edema and trace free fluid without obvious small or large bowel abnormality. 7. No pathologically enlarged lymph nodes are identified within the abdomen or pelvis. 8. Gallbladder is abnormal with either wall edema or pericholecystic fluid. In the appropriate clinical setting cholecystitis can have this appearance. Sunil Morris MD Physical Exam HEENT: PERRL; normocephalic; atraumatic; no jaundice. CHEST: CTA CARDIAC: RRR ABDOMEN: Soft, nondistended, nontender; no hepatosplenomegaly; bowel sounds are present in all four quadrants. EXTREMITIES: No clubbing, cyanosis, or edema. SKIN: Normal; no rash; no jaundice. SOLE FILLER: No focal deficits; alert and oriented times three. (Bailey Adams [facility]) Assessment and Plan Plan Assessment: - Diarrhea that started at 4 yesterday with he states one episode of BRB mixed in stool. Multiple episodes of diarrhea since then. C. Diff negative. 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 Previous colonoscopy, unsure of exact timing. - Acid reflux, per has been taking Tums around the clock for the past few days - Nausea, vomiting- pt reports one episode of emesis yesterday after diarrhea began, denies nausea now. Denies hematemesis and coffee ground emesis. 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 No pathologically enlarged lymph nodes are identified with the abdomen or pelvis. - Abnormal gallbladder on imaging- (-) Bridges sign. Unclear significance CT --> Gallbladder is abnormal with either wall edema or pericholecystic fluid. - History of AML S/P bone marrow tx in Apr 2017 on Tacrolimus and Sirolimus, peripheral smear consistent with acute AML. Seen by Dr. Olea, consult note pending. 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 hem onc following, recommending hospice. CRS now following. no bleeding today. PLT 35. seems bentyl and lomotil helping his abd cramping and diarrhea. Plan: continue bentyl and lomotil mgmt per CRS, hem/onc supportive care GI will sign off. please reconsult if needed. Pt has been seen and examined by myself and Dr. Krishnan and this note is written on his behalf (Bailey Adams) Physician Comments Seen and examined with PRANAV, doing better today. Stool studies -ve so far. Dr. Taveras on case as well. Pt. does not want repeat gi interventions at this time. GI will sign off. Reconsult as needed. Thank you (Phan Krishnan MD) Bailey Adams Oct 06, 2017 13:17 Phan Krishnan MD Oct 06, 2017 14:42
--- NOTE | 2017-10-06 13:37 | HHI.PR ---
Subjective Remarks Follow-up colitis. He is feeling better today with less abdominal pain. No nausea and diarrhea seen with discussed with nursing Objective Vitals Vital Signs Date Time Temp Pulse Resp B/P (MAP) Pulse Ox O2 Delivery O2 Flow Rate FiO2 10/06/17 12:00 97.3 99 20 109/75 (86) 95 10/06/17 08:00 97.0 95 18 105/76 (86) 97 10/06/17 04:00 97.3 93 16 109/67 (81) 94 10/05/17 23:34 97.9 98 16 111/64 (80) 91 10/05/17 20:00 98.7 102 16 108/63 (78) 93 10/05/17 16:06 98.4 99 18 136/98 (111) 99 I/O 10/05/17 10/05/17 10/05/17 10/06/17 10/06/17 10/06/17 07:00 15:00 23:00 07:00 15:00 23:00 Intake Total 331 ml 720 ml 1240 ml Balance 331 ml 720 ml 1240 ml Intake Oral 120 ml 720 ml 240 ml IV Total 1000 ml Platelets 191 ml Blood Product IV Normal Saline Flush 20 ml # Voids 1 3 3 # Bowel Movements 1 1 0 Result Diagram: 10/06/17 0745 10/06/17 0745 Imaging Last Impressions Chest X-Ray 10/04/172026 Signed Impressions: Service Date/Time: Wednesday, October 04, 2017 20:34 - CONCLUSION: No acute disease. Sunil Morris MD Abdomen/Pelvis CT 10/04/17 0000 Signed Impressions: Service Date/Time: Wednesday, October 04, 2017 22:25 - CONCLUSION: 1. Splenomegaly. 2. Hepatic steatosis. 3. Mild reticular-nodular infiltrate in right middle lobe , incompletely imaged on this study. 4. Scattered atherosclerotic calcifications. 5. Stable tiny right renal cyst. 6. There is mild mesenteric edema and trace free fluid without obvious small or large bowel abnormality. 7. No pathologically enlarged lymph nodes are identified within the abdomen or pelvis. 8. Gallbladder is abnormal with either wall edema or pericholecystic fluid. In the appropriate clinical setting cholecystitis can have this appearance. Sunil Morris MD Objective Remarks GENERAL: This is a well-nourished, well-developed patient SKIN: No rashes, ecchymoses or lesions. Cool and dry. CARDIOVASCULAR: Regular rate and rhythm without murmurs, gallops, or rubs. RESPIRATORY: Clear to auscultation. Breath sounds equal bilaterally. No wheezes , rales, or rhonchi. GASTROINTESTINAL: Abdomen soft, diffuse tenderness, nondistended. MUSCULOSKELETAL: Extremities without clubbing, cyanosis, or edema. No joint tenderness, effusion, or edema noted. No calf tenderness. NEUROLOGICAL: Awake and alert. Motor and sensory grossly within normal limits. Normal speech. 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 Thrombocytopenia, acute Platelet count 7000 -Improved after platelet transfusion -Consult medical oncology appreciated recommendations -CBC in am Colitis, acute, patient with abdominal pain and diarrhea. Clinically improving Abdomen/pelvis CT shows mild mesenteric edema and recently fluid without obvious small or large bowel abnormality -Stool studies ordered C. difficile, enteric pathogens negative today -Flagyl IV Q8hr and IV steroids -IVF for hydration -Consulted GI and CRS, holding off endoscopic workup as he appears clinically better also with thrombocytopenia high likelihood of bleeding complications. Requested EGD and colonoscopy results performed in May 2017 at [facility] Sepsis, suspect related to colitis -Continue IV antibiotics as above -CBC in a.m. has leukocytosis likely related to steroids as she appears clinically stable -Close monitoring for fevers. Monitor cultures negative to date AML, chronic, status post bone marrow transplant -Continue home medications acyclovir,Sirolimus and tacrolimus -Pain management with by mouth home oxycodone Pulmonary actinomycosis -Continue home amoxicillin TID Hypertension, chronic -Resume home medications atenolol and lisinopril, monitor vitals Diabetes, chronic -Diabetic diet -Accu-Cheks with SSI -Hyperglycemic restart metformin DVT prophylaxis: SCDs, hold chemical prophylaxis due to thrombocytopenia and GI bleed Problem Qualifiers (1) Type 2 diabetes mellitus: Keegan Cotto MD Oct 06, 2017 13:37
[2017-10-06 16:00] VITALS: BP 114/75; PULSE 102; RESP 19; TEMP 97.7; O2SAT 91
[2017-10-06] MEDS: metFORMIN HCL 500 MG TAB PO SCH (16:50)
[2017-10-06] MEDS ORDERED: PRED20 PO (17:47)
[2017-10-06] MEDS ORDERED: DICY20TA10 PO (17:47)
[2017-10-06] MEDS ORDERED: LACT PO (17:47)
[2017-10-06] MEDS ORDERED: LOMO PO (17:47)
[2017-10-06] MEDS ORDERED: HYDR500C PO (17:47)
[2017-10-06] MEDS ORDERED: METR-1 PO (17:47)
--- NOTE | 2017-10-06 17:48 | HHI.DCPOC ---
Discharge Care Plan Diagnosis: (1) Colitis Your Health Problems Are: Difficulty with ADL Exercise Tolerance Goals to Promote Your Health * To prevent worsening of your condition and complications * To maintain your health at the optimal level Directions to Meet Your Goals Take your medications as prescribed Follow your dietary instruction Follow activity as directed Keep your appointments as scheduled Take your immunizations and boosters as scheduled If your symptoms worsen call your PCP, if no PCP go to Urgent Care Center or Emergency Room Smoking is Dangerous to Your Health. Avoid second hand smoke Call the 24-hour hour crisis hotline for domestic abuse at Keegan Cotto MD Oct 06, 2017 17:48
[2017-10-06] MEDS ORDERED: OLANZapine 5 MG TAB PO SCH (18:00)
[2017-10-06 20:00] VITALS: BP 117/78; PULSE 93; RESP 18; TEMP 97.7; O2SAT 97
[2017-10-06] MEDS ORDERED: ATENOLOL 100 MG TAB PO SCH (21:00)
--- NOTE | 2017-10-06 21:26 | HHI.PR ---
Subjective Remarks C/R Surg afebrile, VSS feels better less abd pain less diarrhea Objective - Vital Signs Date Time Temp Pulse Resp B/P (MAP) Pulse Ox O2 Delivery O2 Flow Rate FiO2 10/06/17 20:00 97.7 93 18 117/78 (91) 97 10/05/17 02:47 Room Air Result Diagram: 10/06/17 0745 10/06/17 0745 Objective Remarks PE alert Abd - soft, min tender, no tympany, no BRB A/P Assessment and Plan Imp: improved cont PO decr IVF plan DC home Anthony Taveras MD Oct 06, 2017 21:26
[2017-10-07] VITALS: BP 95/63; PULSE 99; RESP 20; TEMP 97.6; O2SAT 95
[2017-10-07 04:00] VITALS: BP 104/58; PULSE 101; RESP 20; TEMP 98; O2SAT 95
[2017-10-07] MEDS: DIPHENOXYLATE/ATROPINE 2.5 MG/0.025 MG TAB PO SCH ×2 (05:46→12:12)
[2017-10-07] MEDS: NS + KCL 20 MEQ INJ 1,000 ML IV SCH (05:46)
[2017-10-07 06:07] LABS: HEMATOCRIT 29.1 % (39.0-51.0); HEMOGLOBIN 10.2 GM/DL (13.0-17.0); MEAN CELL VOLUME 91.6 FL (80.0-100.0); MEAN CORPUSCULAR HEMOGLOBIN 31.9 PG (27.0-34.0); MEAN CORPUSCULAR HGB CONC 34.8 % (32.0-36.0); MEAN PLATELET VOLUME 7.9 FL (7.0-11.0); PLATELET COUNT 44 TH/MM3 (150-450); RED BLOOD COUNT 3.18 MIL/MM3 (4.50-5.90); RED CELL DISTRIBUTION WIDTH 16.1 % (11.6-17.2); WHITE BLOOD COUNT 67.8 TH/MM3 (4.0-11.0)
[2017-10-07 06:29] LABS: BICARBONATE 25.1 MEQ/L (21.0-32.0); CALCIUM 8.5 MG/DL (8.5-10.1); CREATININE 0.82 MG/DL (0.60-1.30); MAGNESIUM 1.7 MG/DL (1.5-2.5)
[2017-10-07 08:00] VITALS: BP 109/80; PULSE 120; RESP 19; TEMP 99.1; O2SAT 95
[2017-10-07] MEDS: INSULIN ASPART SUPPLEMENTAL SCALE SQ SCH ×2 (08:00→12:00)
[2017-10-07 08:05] LABS: BLASTS 90 % (0-0); LYMPHOCYTES 2 % (9-44); MONOCYTES 1 % (0-8); MYELOCYTES 1 % (0-0); NEUTROPHIL # MANUAL DIFF 4.7 TH/MM3 (1.8-7.7); POLYS (SEG NEUTROPHILS) 5 % (16-70); PROMYELOCYTES 1 % (0-0)
[2017-10-07] MEDS: SIROLIMUS 2 MG TAB PO SCH (09:00)
[2017-10-07] MEDS: SODIUM CHLORIDE 0.9% FLUSH 10 ML FLUSH IV FLUSH SCH (09:00)
[2017-10-07] MEDS: AMOXICILLIN (TRIHYDRATE) 500 MG CAP PO SCH ×2 (09:08→12:12)
[2017-10-07] MEDS: SERTRALINE HCL 50 MG TAB PO SCH (09:08)
[2017-10-07] MEDS: metFORMIN HCL 500 MG TAB PO SCH (09:09)
[2017-10-07] MEDS: DICYCLOMINE HCL 20 MG TAB PO SCH ×2 (09:09→12:12)
[2017-10-07] MEDS: CALCIUM/VITAMIN D 250 MG/125 U TAB PO SCH (09:09)
[2017-10-07] MEDS: metroNIDAZOLE 500 MG INJ 100 ML IV SCH (09:09)
[2017-10-07] MEDS: ACYCLOVIR 200 MG CAP PO SCH (09:09)
[2017-10-07] MEDS: TACROLIMUS 0.5 MG CAP PO SCH (09:09)
[2017-10-07] MEDS: LISINOPRIL 20 MG TAB PO SCH (09:09)
[2017-10-07] MEDS: LACTOBACILLUS ACIDOPHILUS TAB PO SCH ×2 (09:10→12:12)
[2017-10-07] MEDS: HYDROXYUREA 500 MG CAP PO SCH (09:11)
--- NOTE | 2017-10-07 11:07 | HHI.PR ---
Objective Vitals Vital Signs Date Time Temp Pulse Resp B/P (MAP) Pulse Ox O2 Delivery O2 Flow Rate FiO2 10/07/17 08:00 99.1 120 19 109/80 (90) 95 10/07/17 08:00 99.1 120 19 109/80 (90) 95 10/07/17 04:00 98.0 101 20 104/58 (73) 95 10/07/17 04:00 10/07/17 00:00 97.6 99 20 95/63 (74) 95 10/06/17 20:00 97.7 93 18 117/78 (91) 97 10/06/17 16:00 97.7 102 19 114/75 (88) 91 10/06/17 12:00 97.3 99 20 109/75 (86) 95 I/O 10/06/17 10/06/17 10/06/17 10/07/17 10/07/17 10/07/17 07:00 15:00 23:00 07:00 15:00 23:00 Intake Total 1240 ml 1100 ml 1920 ml 600 ml Balance 1240 ml 1100 ml 1920 ml 600 ml Intake Oral 240 ml 1920 ml 500 ml IV Total 1000 ml 1100 ml 100 ml # Voids 3 8 3 # Bowel Movements 0 1 Result Diagram: 10/07/17 0550 10/07/17 0550 Objective Remarks GENERAL: This is a well-nourished, well-developed patient SKIN: No rashes, ecchymoses or lesions. Cool and dry. CARDIOVASCULAR: Regular rate and rhythm without murmurs, gallops, or rubs. RESPIRATORY: Clear to auscultation. Breath sounds equal bilaterally. No wheezes , rales, or rhonchi. GASTROINTESTINAL: Abdomen soft, diffuse tenderness, nondistended. MUSCULOSKELETAL: Extremities without clubbing, cyanosis, or edema. No joint tenderness, effusion, or edema noted. No calf tenderness. NEUROLOGICAL: Awake and alert. Motor and sensory grossly within normal limits. Normal speech. 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 Thrombocytopenia, acute Platelet count 7000 -Improved after platelet transfusion -Consult medical oncology appreciated recommendations -CBC in am Colitis, acute, patient with abdominal pain and diarrhea. Clinically improving Abdomen/pelvis CT shows mild mesenteric edema and recently fluid without obvious small or large bowel abnormality -Stool studies ordered C. difficile, enteric pathogens negative today -Flagyl IV Q8hr and IV steroids -IVF for hydration -Consulted GI and CRS, holding off endoscopic workup as he appears clinically better also with thrombocytopenia high likelihood of bleeding complications. Requested EGD and colonoscopy results performed in May 2017 at [facility] Sepsis, suspect related to colitis -Continue IV antibiotics as above -CBC in a.m. has leukocytosis likely related to steroids as she appears clinically stable -Close monitoring for fevers. Monitor cultures negative to date AML, chronic, status post bone marrow transplant -Continue home medications acyclovir,Sirolimus and tacrolimus -Pain management with by mouth home oxycodone Pulmonary actinomycosis -Continue home amoxicillin TID Hypertension, chronic -Resume home medications atenolol and lisinopril, monitor vitals Diabetes, chronic -Diabetic diet -Accu-Cheks with SSI -Hyperglycemic restart metformin DVT prophylaxis: SCDs, hold chemical prophylaxis due to thrombocytopenia and GI bleed Problem Qualifiers (1) Type 2 diabetes mellitus: Keegan Cotto MD Oct 07, 2017 11:07
[2017-10-07] MEDS ORDERED: SODIUM CHLOR 0.9% 1000 ML INJ 1,000 ML IV ONE (11:30)
--- NOTE | 2017-10-07 11:40 | PD.ONC.PN ---
Subjective Subjective Remarks Afebrile overnight. patient resting in bed. patient/ have decided to go home with hospice. Objective Data Date Time Temp Pulse Resp B/P (MAP) Pulse Ox O2 Delivery O2 Flow Rate FiO2 10/07/17 08:00 99.1 120 19 109/80 (90) 95 10/07/17 08:00 99.1 120 19 109/80 (90) 95 10/07/17 04:00 98.0 101 20 104/58 (73) 95 10/07/17 04:00 10/07/17 00:00 97.6 99 20 95/63 (74) 95 10/06/17 20:00 97.7 93 18 117/78 (91) 97 10/06/17 16:00 97.7 102 19 114/75 (88) 91 10/06/17 12:00 97.3 99 20 109/75 (86) 95 10/07/17 10/07/17 10/07/17 07:00 15:00 23:00 Intake Total 600 ml Balance 600 ml Result Diagram: 10/07/17 0550 10/07/17 0550 Laboratory Results Laboratory Tests Test 10/07/17 05:50 White Blood Count 67.8 TH/MM3 Red Blood Count 3.18 MIL/MM3 Hemoglobin 10.2 GM/DL Hematocrit 29.1 % Mean Corpuscular Volume 91.6 FL Mean Corpuscular Hemoglobin 31.9 PG Mean Corpuscular Hemoglobin Concent 34.8 % Red Cell Distribution Width 16.1 % Platelet Count 44 TH/MM3 Mean Platelet Volume 7.9 FL CBC Comment AUTO DIFF Differential Total Cells Counted 100 Neutrophils % (Manual) 5 % Lymphocytes % 2 % Monocytes % 1 % Neutrophils # (Manual) 4.7 TH/MM3 Myelocytes 1 % Promyelocytes 1 % Differential Comment FINAL DIFF MANUAL Blastocytes 90 % Platelet Estimate LOW Platelet Morphology Comment NORMAL Blood Urea Nitrogen 8 MG/DL Creatinine 0.82 MG/DL Random Glucose 170 MG/DL Calcium Level 8.5 MG/DL Magnesium Level 1.7 MG/DL Sodium Level 138 MEQ/L Potassium Level 4.3 MEQ/L Chloride Level 107 MEQ/L Carbon Dioxide Level 25.1 MEQ/L Anion Gap 6 MEQ/L Estimat Glomerular Filtration Rate 100 ML/MIN Culture Results Microbiology Date/Time Source Procedure Growth Status 10/04/17 21:05 Blood Peripheral Aerobic Blood Culture - Preliminary NO GROWTH IN 3 DAYS Resulted 10/04/17 21:05 Blood Peripheral Anaerobic Blood Culture - Preliminary NO GROWTH IN 3 DAYS Resulted 10/04/17 21:00 Blood Peripheral Aerobic Blood Culture - Preliminary NO GROWTH IN 3 DAYS Resulted 10/04/17 21:00 Blood Peripheral Anaerobic Blood Culture - Preliminary NO GROWTH IN 3 DAYS Resulted Administered Medications Medications (Trade) Dose Ordered Sig/Génesis Route PRN Reason Start Time Stop Time Status Last Admin Dose Admin Sodium Chloride (NS Flush) 2 ml BID IV FLUSH 10/05/17 09:00 10/07/17 09:00 Metronidazole 100 ml @ 100 mls/hr Q8H IV 10/05/17 08:00 10/07/17 09:09 Insulin Aspart (NovoLOG SUPPLEMENTAL SCALE) 1 ACHS SLIDING SCALE SQ 10/05/17 08:00 10/07/17 08:00 Acyclovir (Zovirax) 400 mg BID PO 10/05/17 09:00 10/07/17 09:09 Amoxicillin (Trimox) 500 mg TID PO 10/05/17 09:00 10/07/17 09:08 Lisinopril (Prinivil) 20 mg BID PO 10/05/17 09:00 10/07/17 09:09 Oxycodone HCl (Roxicodone) 10 mg Q6H PRN PO PAIN 10/05/17 01:30 10/07/17 09:25 Sertraline HCl (Zoloft) 50 mg DAILY PO 10/05/17 09:00 10/07/17 09:08 Sirolimus (Rapamune) 2 mg DAILY PO 10/05/17 09:00 10/07/17 09:00 Tacrolimus (Prograf) 0.5 mg DAILY PO 10/05/17 09:00 10/07/17 09:09 Calcium/Vitamin D (Oscal-D 250-125) 500 mg BID PO 10/05/17 09:00 10/07/17 09:09 Potassium Chloride/Sodium Chloride 1,000 ml @ 60 mls/hr [id number] IV 10/05/17 08:45 10/07/17 05:46 Diazepam (Valium) 10 mg HS PRN PO ANXIETY 10/05/17 09:00 10/06/17 20:45 Olanzapine (ZyPREXA) 5 mg DAILY@1800 PO 10/06/17 18:00 10/06/17 16:50 Lactobacillus Acidophilus (Lactinex) 1 tab TID PO 10/05/17 13:00 10/07/17 09:10 Dicyclomine HCl (Bentyl) 20 mg TID PO 10/05/17 18:00 10/07/17 09:09 Diphenoxylate HCl/ Atropine (Lomotil Tab) 1 tab Q6HR PO 10/05/17 18:00 10/06/17 16:50 Hydroxyurea (Hydrea) 500 mg DAILY PO 10/06/17 09:00 10/07/17 09:11 Metformin HCl (Glucophage) 1,000 mg BIDPC PO 10/06/17 18:00 10/07/17 09:09 Atenolol (Tenormin) 100 mg HS PO 10/06/17 21:00 10/06/17 20:44 Objective Remarks GENERAL: Middle aged male, lying in bed, resting. SKIN: Warm and dry. HEAD: Normocephalic. EYES: no injection or drainage. NECK: Supple, trachea midline CARDIOVASCULAR: Regular rate and rhythm RESPIRATORY: Breath sounds equal bilaterally. No accessory muscle use. GASTROINTESTINAL: Abdomen soft, non-tender, nondistended. EXTREMITIES: No cyanosis NEUROLOGICAL: awake and alert. somewhat somnolent. moving extremities. Assessment/Plan Problem List: (1) AML (acute myeloid leukemia) ICD Codes: C92.00 - Acute myeloblastic leukemia, not having achieved remission Status: Acute Plan: 10/07: patient/ have decided on hospice. clear for discharge home. consult placed for hospice. d/w hospice nurse, Dr. Cotto, patient, patient's . --considering clinical trial --start Hydrea to lower blast count. Assessment 47y/o male with AML, admitted with vomiting, diarrhea and abdominal pain. Acute myeloid leukemia, anxiety disorder, hemochromatosis, ADHD, hypercholesterolemia, anxiety disorder, diabetes mellitus. Attending Statement The exam, history, and the medical decision-making described in the above note were completed with the assistance of the mid-level provider. I reviewed and agree with the findings presented. I attest that I had a [id number] encounter with the patient on the same day, and personally performed and documented my assessment and findings in the medical record. Not feeling well. More tired and somewhat lethargic. at bedside. WBC is now 64K. He is going into blast crisis. Discuss agian more chemo vs BSC with hospice. They have elected for home hospice. Consult Hospice and d/c to home. prognosis is very poor. May in 1-2 weeks. Problem Qualifiers (1) AML (acute myeloid leukemia): Qualified Codes: C92.02 - Acute myeloblastic leukemia, in relapse Janet Holm Oct 07, 2017 11:40 Alexandra Olea MD Oct 07, 2017 17:06
[2017-10-07 12:00] VITALS: BP 92/71; PULSE 120; RESP 19; TEMP 100.5; O2SAT 94
[2017-10-07 13:14] VITALS: BP 98/67; PULSE 114; RESP 17; TEMP 100.4; O2SAT 94
--- NOTE | 2017-10-07 14:49 | HHI.DS ---
Discharge Summary Admission Date Oct 04, 2017 at 23:16 Discharge Date: Oct 07, 2017 Admitting Diagnosis Colitis, thrombocytopenia (1) Thrombocytopenia ICD Code: D69.6 - Thrombocytopenia, unspecified Diagnosis: Principal Status: Acute (2) Colitis ICD Code: K52.9 - Noninfective gastroenteritis and colitis, unspecified Diagnosis: Principal Status: Acute (3) Hypertension ICD Code: I10 - Essential (primary) hypertension Diagnosis: Principal Status: Chronic (4) Type 2 diabetes mellitus ICD Code: E11.9 - Type 2 diabetes mellitus without complications Diagnosis: Principal Status: Chronic (5) AML (acute myeloid leukemia) ICD Code: C92.00 - Acute myeloblastic leukemia, not having achieved remission Diagnosis: Principal Status: Acute Procedures None Brief History - From Admission 47-year-old male with a history of acute myeloid leukemia, 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 Patient does have a history of relapsed AML status post bone marrow transplant currently on sirolimus and tacrolimus. He states these symptoms all started today and he complains of intermittent, crampy, abdominal pain associated watery liquid stools nausea and vomiting. He did state he did have a small amount of bright red blood in stool and upon arrival to the ED he was found to have a platelet count of 7000. On Thursday he was just transfused with 2 units of packed red blood cells, but no platelets. He also complains of associated weakness for the past few weeks. 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 Oncologist: Dr. Olea CBC/BMP: 10/07/17 0550 10/07/17 0550 Significant Findings Laboratory Tests Test 10/04/17 21:00 10/05/17 06:00 10/05/17 06:05 10/06/17 07:45 White Blood Count 12.0 TH/MM3 (4.0-11.0) 12.9 TH/MM3 (4.0-11.0) 24.3 TH/MM3 (4.0-11.0) Red Blood Count 3.31 MIL/MM3 (4.50-5.90) 3.18 MIL/MM3 (4.50-5.90) 3.25 MIL/MM3 (4.50-5.90) Hemoglobin 10.6 GM/DL (13.0-17.0) 10.3 GM/DL (13.0-17.0) 10.4 GM/DL (13.0-17.0) Hematocrit 30.1 % (39.0-51.0) 28.8 % (39.0-51.0) 29.7 % (39.0-51.0) Platelet Count 7 TH/MM3 (150-450) 39 TH/MM3 (150-450) 35 TH/MM3 (150-450) Neutrophils % (Manual) 5 % (16-70) 5 % (16-70) 3 % (16-70) Neutrophils # (Manual) 0.7 TH/MM3 (1.8-7.7) 0.9 TH/MM3 (1.8-7.7) 1.0 TH/MM3 (1.8-7.7) Blastocytes 64 % (0-0) 72 % (0-0) 83 % (0-0) Platelet Estimate RARE (NORMAL) LOW (NORMAL) LOW (NORMAL) Prothrombin Time 12.2 SEC (9.8-11.6) Random Glucose 260 MG/DL (74-106) 219 MG/DL (74-106) 201 MG/DL (74-106) Total Protein 5.9 GM/DL (6.4-8.2) Albumin 2.8 GM/DL (3.4-5.0) Calcium Level 8.3 MG/DL (8.5-10.1) 8.4 MG/DL (8.5-10.1) 8.3 MG/DL (8.5-10.1) Sodium Level 133 MEQ/L (136-145) 135 MEQ/L (136-145) Potassium Level 3.3 MEQ/L (3.5-5.1) 3.3 MEQ/L (3.5-5.1) Troponin I LESS THAN 0.02 NG/ML Blood Urea Nitrogen 6 MG/DL (7-18) Chloride Level 108 MEQ/L (98-107) Test 10/07/17 05:50 White Blood Count 67.8 TH/MM3 (4.0-11.0) Red Blood Count 3.18 MIL/MM3 (4.50-5.90) Hemoglobin 10.2 GM/DL (13.0-17.0) Hematocrit 29.1 % (39.0-51.0) Platelet Count 44 TH/MM3 (150-450) Neutrophils % (Manual) 5 % (16-70) Lymphocytes % 2 % (9-44) Myelocytes 1 % (0-0) Promyelocytes 1 % (0-0) Blastocytes 90 % (0-0) Platelet Estimate LOW (NORMAL) Random Glucose 170 MG/DL (74-106) Imaging Last Impressions Chest X-Ray 10/04/172026 Signed Impressions: Service Date/Time: Wednesday, October 04, 2017 20:34 - CONCLUSION: No acute disease. Sunil Morris MD Abdomen/Pelvis CT 10/04/17 0000 Signed Impressions: Service Date/Time: Wednesday, October 04, 2017 22:25 - CONCLUSION: 1. Splenomegaly. 2. Hepatic steatosis. 3. Mild reticular-nodular infiltrate in right middle lobe , incompletely imaged on this study. 4. Scattered atherosclerotic calcifications. 5. Stable tiny right renal cyst. 6. There is mild mesenteric edema and trace free fluid without obvious small or large bowel abnormality. 7. No pathologically enlarged lymph nodes are identified within the abdomen or pelvis. 8. Gallbladder is abnormal with either wall edema or pericholecystic fluid. In the appropriate clinical setting cholecystitis can have this appearance. Sunil Morris MD PE at Discharge GENERAL: This is a well-nourished, well-developed patient SKIN: No rashes, ecchymoses or lesions. Cool and dry. CARDIOVASCULAR: Regular rate and rhythm without murmurs, gallops, or rubs. RESPIRATORY: Clear to auscultation. Breath sounds equal bilaterally. No wheezes , rales, or rhonchi. GASTROINTESTINAL: Abdomen soft, diffuse tenderness, nondistended. MUSCULOSKELETAL: Extremities without clubbing, cyanosis, or edema. No joint tenderness, effusion, or edema noted. No calf tenderness. NEUROLOGICAL: Awake and alert. Motor and sensory grossly within normal limits. Normal speech. 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 AML status post bone marrow transplant. In relapse. Patient and have decided on hospice. Will discharge home with hospice care. Continue Hydrea -Continue home medications acyclovir,Sirolimus and tacrolimus -Pain management with by mouth home oxycodone Thrombocytopenia, acute Platelet count 7000 -Improved after platelet transfusion -Consult medical oncology appreciated recommendations -Monitor CBC Colitis, acute, patient with abdominal pain and diarrhea. Clinically improving Abdomen/pelvis CT shows mild mesenteric edema and recently fluid without obvious small or large bowel abnormality -Stool studies ordered C. difficile, enteric pathogens negative to date -Flagyl. Discontinue steroids -Status post IVF for hydration -Consulted GI and CRS, holding off endoscopic workup as he appears clinically better also with thrombocytopenia high likelihood of bleeding complications. Requested EGD and colonoscopy results performed in May 2017 at [facility] Sepsis, suspect related to colitis -Continue antibiotics as above -Close monitoring for fevers. Monitor cultures negative to date Pulmonary actinomycosis -Continue home amoxicillin TID Hypertension, chronic -Resume home medications atenolol and lisinopril, monitor vitals Diabetes, chronic -Diabetic diet -Accu-Cheks with SSI -Hyperglycemic restart metformin DVT prophylaxis: SCDs, hold chemical prophylaxis due to thrombocytopenia and GI bleed Pt Condition on Discharge: Guarded Discharge Disposition: Hospice/ Home Discharge Time: > 30 minutes Discharge Instructions DIET: Follow Instructions for: Heart Healthy Diet, Diabetic Diet Activities you can perform: Regular-No Restrictions Activities to Avoid: Driving Follow up Referrals: Colorectal Surgery - 1 Week Gastroenterology - 1 Week Oncology - 1 Week PCP Follow-up - 1 Week New Medications: Metronidazole (Flagyl) 500 Mg Tab 500 MG PO TID for Infection, #15 TAB 0 Refills Dicyclomine (Dicyclomine) 20 Mg Tab 20 MG PO TID for abd pain, #90 TAB Diphenoxylate W/ Atropine (Diphenatol 2.5-0.025 mg) 2.5 Mg-0.025 Mg Tab 1 TAB PO Q6HR PRN for Bowel Management, #30 TAB Hydroxyurea (Hydrea) 500 Mg Cap 500 MG PO DAILY for lower blaast count, #30 CAP Lactobacillus Acidophilus (Acidophilus/l-Sporogenes) 35 Million Cell-25 Million Cell Tab 1 TAB PO TID for Bowel Management, #30 TAB Continued Medications: Acyclovir (Acyclovir) 400 Mg Tab 400 MG PO BID for Mgmt Viral Infection, TAB 0 Refills Amoxicillin (Amoxicillin) 500 Mg Cap 500 MG PO TID for Infection, CAP 0 Refills Atenolol (Atenolol) 100 Mg Tab 100 MG PO DAILY for Blood Pressure Management, #30 TAB 0 Refills Calcium Carbonate-Cholecalciferol (Calcium 500 +D) 500-400 Mg-Unit Tab 1 TAB PO BID for Calcium Supplement, TAB 0 Refills Cholecalciferol (Vitamin D3 Maximum Strength) 5,000 Unit Cap 07908 UNITS PO DAILY for Nutritional Supplement, #30 CAP 0 Refills Diazepam (Diazepam) 10 Mg Tab 10 MG PO HS PRN for ANXIETY, TAB 0 Refills Insulin Aspart Inj (Novolog Inj) 100 Unit/Ml Inj SQ Lisinopril (Lisinopril) 20 Mg Tab 20 MG PO BID, #30 TAB 0 Refills Magnesium Oxide (Magnesium Oxide) 500 Mg Tab 500 MG PO BID, TAB 0 Refills Metformin (Metformin) 850 Mg Tab 1000 MG PO BIDPC for Blood Sugar Management, TAB 0 Refills With meals Olanzapine (Olanzapine) 5 Mg Tab 5 MG PO DAILY, #30 TAB 0 Refills Oxycodone (Oxycodone) 10 Mg Tab 10 MG PO Q6H PRN for PAIN, TAB 0 Refills Sertraline (Sertraline) 50 Mg Tab 50 MG PO DAILY, #30 TAB 0 Refills Sirolimus (Sirolimus) 2 Mg Tab 2 MG PO DAILY for Immunosuppression, #30 TAB 0 Refills Tacrolimus (Tacrolimus) 0.5 Mg Cap 0.5 MG PO DAILY for Prevent Transplant Reject, #60 CAP 0 Refills Keegan Cotto MD Oct 07, 2017 14:49
[2017-10-08] MEDS ORDERED: ERGOCALCIFEROL (VIT D2) 50,000 UNIT CAP PO SCH (09:00)
== END 2017-10-07 14:17 | disposition hospice, home (50) | DRG 834 ==
LOC: NEPC 19:53 → NEDA 23:16 → N04B 10-05 03:35
PROVIDERS: ADMIT Internal Medicine; ATTEND Internal Medicine
PROC: 30233R1 Transfusion of Nonautologous Platelets into Peripheral Vein, Percutaneous Approach (ICD-10-PCS; principal; 2017-10-04)
DX: C92.02 Acute myeloblastic leukemia, in relapse (principal); A41.9 Sepsis, unspecified organism; T86.09 Other complications of bone marrow transplant; D89.813 Graft-versus-host disease, unspecified; D69.59 Other secondary thrombocytopenia; A43.0 Pulmonary nocardiosis; E11.65 Type 2 diabetes mellitus with hyperglycemia; K76.0 Fatty (change of) liver, not elsewhere classified; K52.9 Noninfective gastroenteritis and colitis, unspecified; R16.1 Splenomegaly, not elsewhere classified; I10 Essential (primary) hypertension; K21.9 Gastro-esophageal reflux disease without esophagitis; D63.0 Anemia in neoplastic disease; T38.0X5A Adverse effect of glucocorticoids and synthetic analogues, initial encounter; E83.119 Hemochromatosis, unspecified; F32.9 Major depressive disorder, single episode, unspecified; F41.9 Anxiety disorder, unspecified; Z51.5 Encounter for palliative care; Z79.4 Long term (current) use of insulin; Z80.0 Family history of malignant neoplasm of digestive organs; Z88.1 Allergy status to other antibiotic agents; Z92.21 Personal history of antineoplastic chemotherapy; R21 Rash and other nonspecific skin eruption; R53.1 Weakness
CPT/HCPCS: 36430; 71045; 74177; 80048; 80053; 82948; 83605; 83735; 84484; 85007; 85027; 85610; 85730; 86644; 86850; 86900; 86901; 87040; 87493; 96360; J1642; J1815; J3480; J7030; J7050; J7512; J7520; P9037; P9040; Q9967